=== PATIENT | male | born 1965 | race Caucasian/White ===

== ENCOUNTER 2019-09-17 08:34 | Outpatient (RCR) | payer MEDICARE, MEDICAID, SELFPAY | END 2019-09-29 00:01 | LOC: WOUND 08:34 | PROVIDERS: Visit Provider Nurse Practitioner Family | DX: E11.621 Type 2 diabetes mellitus with foot ulcer (principal); L97.422 Non-pressure chronic ulcer of left heel and midfoot with fat layer exposed; L97.413 Non-pressure chronic ulcer of right heel and midfoot with necrosis of muscle; I96 Gangrene, not elsewhere classified | CPT/HCPCS: 11042 ×3 ==

== ENCOUNTER 2019-10-29 08:24 | Outpatient (RCR) | payer OTHER, MEDICAID, SELFPAY | END 2019-10-30 23:59 | disposition home or self-care (01) | LOC: WOUND 08:24 | PROVIDERS: Visit Provider Nurse Practitioner Family | DX: E11.621 Type 2 diabetes mellitus with foot ulcer (principal); L97.422 Non-pressure chronic ulcer of left heel and midfoot with fat layer exposed; I96 Gangrene, not elsewhere classified | CPT/HCPCS: 11042; G0463 ==

== ENCOUNTER 2019-11-26 08:01 | Outpatient (RCR) | payer MEDICARE, MEDICAID, SELFPAY | END 2019-11-28 23:59 | disposition home or self-care (01) | LOC: WOUND 08:01 | PROVIDERS: Visit Provider Nurse Practitioner Family | DX: E11.621 Type 2 diabetes mellitus with foot ulcer (principal); L97.422 Non-pressure chronic ulcer of left heel and midfoot with fat layer exposed; L97.512 Non-pressure chronic ulcer of other part of right foot with fat layer exposed | CPT/HCPCS: 11042; 87070; 87077; 87176; 87186; 87205; 99214; 99215; A6545; G0463 ==

== ENCOUNTER 2019-12-24 08:11 | Outpatient (RCR) | payer MEDICARE, MEDICAID, SELFPAY | END 2019-12-29 23:59 | disposition home or self-care (01) | LOC: WOUND 08:11 | PROVIDERS: Visit Provider Nurse Practitioner Family | DX: E11.621 Type 2 diabetes mellitus with foot ulcer (principal); L97.422 Non-pressure chronic ulcer of left heel and midfoot with fat layer exposed; L97.512 Non-pressure chronic ulcer of other part of right foot with fat layer exposed | CPT/HCPCS: 11042; 99214 ==

== ENCOUNTER 2019-12-31 08:08 | Outpatient (RCR) | payer OTHER, MEDICAID, SELFPAY | END 2020-01-28 23:59 | disposition home or self-care (01) | LOC: WOUND 08:08 | PROVIDERS: PCP Nurse Practitioner Family; Visit Provider Nurse Practitioner Family | DX: E11.621 Type 2 diabetes mellitus with foot ulcer (principal); L97.422 Non-pressure chronic ulcer of left heel and midfoot with fat layer exposed | CPT/HCPCS: 99214; G0463 ==

== ENCOUNTER 2020-01-28 12:34 | Outpatient (RCR) | payer OTHER, MEDICAID, SELFPAY ==
--- NOTE | 2020-01-28 12:55 | XR_ITS ---
WS: [id number] FOOT LEFT TECHNIQUE: 3 views of the left foot CLINICAL INFORMATION: PAIN REDNESS, NONHEALING ULCER COMPARISON: Radiograph April 12, 2018 FINDINGS: Osteopenia. Soft tissue edema lower leg and ankle. Chronic appearing sclerosis involving the calcaneu s likely due to chronic osteomyelitis. No acute appearing lytic destruction. Plantar calcaneal spurri ng. Vascular calcification. No acute appearing fractures.. XR/XR foot LT min 3V* [id number] IMPRESSION: 1. Diffuse sclerosis consistent with chronic osteomyelitis involving the calca neus. No acute appearing bony destruction. 2. Extensive soft tissue edema involving the lower leg and ankle. 3. Diffuse demineralization. 4. No acute fractures.
== END 2020-01-28 23:59 | disposition home or self-care (01) ==
LOC: WOUND 12:34
PROVIDERS: PCP Nurse Practitioner Family; Visit Provider Emergency Medicine
DX: E11.621 Type 2 diabetes mellitus with foot ulcer (principal); L97.422 Non-pressure chronic ulcer of left heel and midfoot with fat layer exposed; M79.672 Pain in left foot
CPT/HCPCS: 11042; 73630; 87070; 87077; 87176; 87186; 87205

== ENCOUNTER 2020-02-01 10:13 | Outpatient (CLI) | payer OTHER, MEDICAID, SELFPAY | END 2020-02-01 10:14 | disposition home or self-care (01) | LOC: WOUND 13:36 | PROVIDERS: PCP Nurse Practitioner Family; Visit Provider Emergency Medicine | DX: E11.621 Type 2 diabetes mellitus with foot ulcer (principal); L97.422 Non-pressure chronic ulcer of left heel and midfoot with fat layer exposed | CPT/HCPCS: 11042 ==

== ENCOUNTER 2020-02-08 10:29 | Outpatient (CLI) | payer OTHER, MEDICAID, SELFPAY | END 2020-02-08 10:30 | disposition home or self-care (01) | LOC: WOUND 10:29 | PROVIDERS: PCP Nurse Practitioner Family; Visit Provider Nurse Practitioner Family | DX: E11.621 Type 2 diabetes mellitus with foot ulcer (principal); L97.422 Non-pressure chronic ulcer of left heel and midfoot with fat layer exposed | CPT/HCPCS: G0463 ==

== ENCOUNTER 2020-02-08 14:06 | Outpatient (RCR) | payer OTHER, MEDICAID, SELFPAY ==
--- NOTE | 2020-02-08 14:12 | MR_ITS ---
WS: [id number] INDICATION: Pain redness nonhealing ulcer TECHNIQUE: MRI of the left foot without and with gadolinium enhancement. Sagittal PD, axial T1, axial T2, axial STIR, sagittal STIR, and post gadolinium imaging was obtained with fat saturation techniqu e. FINDINGS: Correlation is made to prior radiograph January 28, 2020. Prior MRI October 10, 2018. Additio nal MRI January 02, 2018. Area of ulceration indicated with a marker overlying the dorsal inferior calcaneus. Soft tissue edema deep to the area of ulceration with associated cellulitis and subcutaneous enhancement. No drainable fluid collections. Replacement of the normal T1 marrow signal involving the adjacent dorsal inferior one third of the calcaneus. Replacement of the normal T1 fatty marrow signal with edema and enhancem ent consistent with osteomyelitis. This has a similar appearance compared to August 19, 2019 but ov erall less extensive today. Sparing of the sustentaculum oswaldo. Normal subtalar joint. Talus is normal in appearance. Soft tissue edema involving the lower leg and mid and forefoot. No other significant changes from previous. Again seen is the chronic appearing atrophy and tear invo lving the distal Achilles at the insertion adjacent to the area of soft tissue ulceration. No other s ignificant changes. IMPRESSION 1. Replacement of the normal bone marrow signal involving the calcaneus with associated edema and en hancement consistent with osteomyelitis involving the dorsal one third the calcaneus. 2. Dorsal calcaneal soft tissue ulceration with a small amount of edema associated enhancement consi stent with cellulitis. 3. Talar dome is normal. 4. Diffuse soft tissue edema lower leg and foot. 5. No other significant changes from previous.
[2020-02-08 15:09] LABS: Blood Urea Nitrogen 17 mg/dL (6-20); Glomerular Filtration Rate 49.1 mL/min (90-130)
== END 2020-02-28 23:59 | disposition home or self-care (01) ==
LOC: RADWPI 14:06
PROVIDERS: PCP Nurse Practitioner Family; Visit Provider Nurse Practitioner Family
DX: L97.328 Non-pressure chronic ulcer of left ankle with other specified severity (principal); M79.672 Pain in left foot; R60.9 Edema, unspecified
CPT/HCPCS: 73720; 82565; 84520; A9579

== ENCOUNTER 2020-02-15 09:17 | Outpatient (CLI) | payer OTHER, MEDICAID, SELFPAY | END 2020-02-15 09:18 | disposition home or self-care (01) | LOC: WOUND 09:19 | PROVIDERS: PCP Nurse Practitioner Family; Visit Provider Nurse Practitioner Family | DX: E11.621 Type 2 diabetes mellitus with foot ulcer (principal); L97.422 Non-pressure chronic ulcer of left heel and midfoot with fat layer exposed | CPT/HCPCS: 99214 ==

== ENCOUNTER 2020-02-16 08:40 | Outpatient (CLI) | payer OTHER, MEDICAID, SELFPAY ==
--- NOTE | 2020-02-16 09:06 | XR_ITS ---
WS: [id number] CHEST XRAY TECHNIQUE: Portable chest. CLINICAL INFORMATION: picc placement COMPARISON: May 26, 2019 FINDINGS: Right PICC line with tip in the distal SVC. No pneumothorax. Shallow inspiration. Subsegmen gilles atelectasis left lower lobe XR/XR chest 1V portable [id number] IMPRESSION: Right PICC line with tip in distal SVC. No pneumothorax.
--- NOTE | 2020-02-16 10:51 | PC.NURSE ---
PER [facility] PATIENT IS TO START CONTINUOUS INFUSION AT HOME WITH NO LOADING DOSE TO BE DONE AT THE HOSPITAL.
== END 2020-02-16 08:41 | disposition home or self-care (01) ==
LOC: GILAB 08:42
PROVIDERS: PCP Nurse Practitioner Family; Visit Provider Nurse Practitioner Family
DX: M86.8X7 Other osteomyelitis, ankle and foot (principal)
CPT/HCPCS: 36569; 71045

== ENCOUNTER 2020-02-16 22:29 | Outpatient (CLI) | payer MEDICARE, MEDICAID, SELFPAY ==
[2020-02-16 22:40] LABS: Basophils # 0.1 10^3/uL (0.0-0.1); Basophils % 0.7 %; Eosinophils # 0.4 10^3/uL (0.0-0.8); Eosinophils % 3.6 %; Hematocrit 42.5 % (42.0-52.0); Hemoglobin 13.6 g/dL (11.7-16.6); Lymphocytes # 2.1 10^3/uL (0.8-4.8); Lymphocytes % 18.8 %; Mean Corpuscular Hemoglobin 27.9 pg (28.0-34.0); Mean Corpuscular Volume 87.1 fL (80-94); Mean Platelet Volume 13.5 fL (7.4-10.4); Monocytes # 0.9 10^3/uL (0.2-0.9); Monocytes % 7.8 %; Neutrophils # 7.5 10^3/uL (1.8-7.7); Neutrophils % 68.7 %; Nucleated Red Blood Cells % 0 %; Platelet Count 253 10^3/cmm (130-400); Red Blood Count 4.88 10^6/uL (4.1-5.3); White Blood Count 10.9 10^3/uL (4.0-10.0)
[2020-02-16 22:57] LABS: Alanine Aminotransferase 11 U/L (0-41); Albumin Level 3.6 g/dL (3.5-5.2); Alkaline Phosphatase 185 IU/L (40-130); Aspartate Amino Transferase 24 U/L (0-40); Blood Urea Nitrogen 23 mg/dL (6-20); C Reactive Protein 5.7 mg/L (0.0-4.9); Calcium 9.1 mg/dL (8.5-10.5); Carbon Dioxide 23 mmol/L (22-29); Chloride 99 mmol/L (98-107); Globulin 4.2 g/dL (1.3-4.6); Glomerular Filtration Rate 53.2 mL/min (90-130); Glucose 244 mg/dL (65-115); Osmolality Calculated 287 mOsm/kg (285-295); Sodium 136 mmol/L (136-145); Total Bilirubin 0.2 mg/dL (0.15-1.2); Total Protein 7.8 g/dL (6.6-8.7)
[2020-02-16 23:23] LABS: Slide Review Slide Review Perform
== END 2020-02-16 22:30 | disposition home or self-care (01) ==
PROVIDERS: PCP Nurse Practitioner Family; Visit Provider Surgery
DX: M86.9 Osteomyelitis, unspecified (principal)
CPT/HCPCS: 80053; 85025; 86140

== ENCOUNTER 2020-02-18 14:27 | Outpatient (CLI) | payer OTHER, MEDICAID, SELFPAY ==
[2020-02-18 15:25] LABS: Creatinine Urine, Random 142 mg/dL (39-259)
[2020-02-18 22:57] LABS: Microalbum Creatinine Ratio Ur 282 mg/dL (0-20); Microalbumin Random Urine > 40 ug/dL (0-20)
== END 2020-02-18 14:28 | disposition home or self-care (01) ==
LOC: LAB 14:30
PROVIDERS: PCP Nurse Practitioner Family; Visit Provider Internal Medicine Nephrology
DX: N18.3 Chronic kidney disease, stage 3 (moderate) (principal)
CPT/HCPCS: 82044

== ENCOUNTER 2020-02-23 14:44 | Outpatient (CLI) | payer MEDICARE, MEDICAID, SELFPAY ==
--- NOTE | 2020-02-23 14:57 | USCV_ITS ---
Tim Robison Age: 54 Gender: M : 1965 Exam Date: 02/23/2020 14:55 Ordering Phys: Saige Palumbo DO Technologist: Megan Combs [place] [facility] [place]: HISTORY: NON HEALING ULCER PROCEDURES: Bilateral duplex Venous Insufficiency study of the Deep and Superficial systems was carried out according to normal protocol with the patient in supine positon for deep system and dependent position for the superficial system. FINDINGS: There is no evidence of bilateral deep vein thrombosis. No evidence of superficial thrombosis in the bilateral saphenous system. Reflux is demonstrated in the deep venous system at the level of the LEFT POP V Venous reflux is demonstrated in the RIGHT greater saphenous vein with a spectral Doppler display of greater than 500 milliseconds at the PROXIMAL level. Venous reflux is demonstrated in the RIGHT small saphenous vein with a spectral Doppler display of greater than 500 mlsec at the level of the PROX AND MID calf. No venous reflux noted in the LEFT greater saphenous vein. No venous reflux noted in the LEFT small saphenous vein. CONCLUSIONS 1. No evidence of DVT in the above-mentioned identifiable veins. 2. Significant venous reflux of greater than 500 ms were noted at the proximal greater saphenous vein segment, proximal and mid small saphenous vein segments on the right side. These venous segments where 0.57, 0.42 and 0.3 cm in diameters. They were greater than 1 cm deep from the surface. 3. No significant venous reflux were noted on the left side, in the superficial veins. 4. The left popliteal vein was found to have significant reflux of greater than 1000 ms. 5. The venous dimensions, depth from the surface and reflux times are as mentioned above. Dr Laurita Love MD [facility] (Electronically Signed) Final Date: 23 Feb 2020 18:18 S
== END 2020-02-23 14:45 | disposition home or self-care (01) ==
LOC: RAD 14:49
PROVIDERS: PCP Nurse Practitioner Family; Visit Provider Emergency Medicine
DX: L97.929 Non-pressure chronic ulcer of unspecified part of left lower leg with unspecified severity (principal); L97.919 Non-pressure chronic ulcer of unspecified part of right lower leg with unspecified severity; I87.2 Venous insufficiency (chronic) (peripheral)
CPT/HCPCS: 93970

== ENCOUNTER 2020-02-23 15:20 | Outpatient (CLI) | payer MEDICARE, MEDICAID, SELFPAY ==
[2020-02-23 19:12] LABS: Alanine Aminotransferase 7 U/L (0-41); Albumin Level 3.5 g/dL (3.5-5.2); Alkaline Phosphatase 152 IU/L (40-130); Anion Gap 19.1 (5-19); Aspartate Amino Transferase 17 U/L (0-40); Blood Urea Nitrogen 22 mg/dL (6-20); C Reactive Protein 9.8 mg/L (0.0-4.9); Calcium 9.6 mg/dL (8.5-10.5); Carbon Dioxide 22 mmol/L (22-29); Chloride 98 mmol/L (98-107); Globulin 4.6 g/dL (1.3-4.6); Glomerular Filtration Rate 42.5 mL/min (90-130); Glucose 148 mg/dL (65-115); Osmolality Calculated 279 mOsm/kg (285-295); Potassium 4.1 mmol/L (3.5-5.1); Sodium 135 mmol/L (136-145); Total Bilirubin 0.3 mg/dL (0.15-1.2); Total Protein 8.1 g/dL (6.6-8.7)
[2020-02-23 19:13] LABS: Basophils # 0.1 10^3/uL (0.0-0.1); Basophils % 1.1 %; Eosinophils # 0.6 10^3/uL (0.0-0.8); Eosinophils % 5.7 %; Hematocrit 44.4 % (42.0-52.0); Hemoglobin 13.9 g/dL (11.7-16.6); Lymphocytes # 1.9 10^3/uL (0.8-4.8); Lymphocytes % 18.6 %; Mean Corpuscular HGB Conc 31.3 g/dL (30.0-36.0); Mean Corpuscular Volume 89.3 fL (80-94); Mean Platelet Volume 12.9 fL (7.4-10.4); Monocytes # 0.7 10^3/uL (0.2-0.9); Monocytes % 7.1 %; Neutrophils % 67.1 %; Nucleated Red Blood Cells % 0 %; Platelet Count 261 10^3/cmm (130-400); Red Blood Count 4.97 10^6/uL (4.1-5.3); Red Cell Distribution Width 14.1 % (12.1-15.1); White Blood Count 10.4 10^3/uL (4.0-10.0)
== END 2020-02-23 15:21 | disposition home or self-care (01) ==
LOC: LAB 16:37
PROVIDERS: PCP Nurse Practitioner Family; Visit Provider Surgery
DX: E11.621 Type 2 diabetes mellitus with foot ulcer (principal)
CPT/HCPCS: 80053; 85025; 86140

== ENCOUNTER 2020-02-24 09:33 | Outpatient (CLI) | payer MEDICARE, MEDICAID, SELFPAY ==
--- NOTE | 2020-02-24 | USCV_ITS ---
Tim Robison Age: 54 Gender: M : 1965 Exam Date: 02/24/2020 09:54 Ordering Phys: Saige Palumbo DO Technologist: Exam Location[place] [facility] [place] Indication: NON HEALING ULCER RIGHT LEFT Brachial 138.00 mmHg Brachial 152.00 mmHg Pressure (mmHg) Waveform Pressure (mmHg) Waveform 141.00 Above Knee 157.00 161.00 Below Knee 157.00 159.00 DPA 171.00 1.05 Ankle/Brachial Index 1.13 174.00 Pre-Exercise Toe Pressure 147.00 1.14 Pre-Exercise Toe/Brachial Index 0.97 FINDINGS Normal resting ABIs bilaterally Normal resting TBIs bilaterally Normal segmental pressures PVR waveforms were of suboptimal quality CONCLUSIONS No significant arterial obstruction, based on the above findings Dr Laurita Love MD [facility] (Electronically Signed) Final Date: 24 Feb 2020 19:08 S
== END 2020-02-24 09:34 | disposition home or self-care (01) ==
LOC: RAD 09:37
PROVIDERS: PCP Nurse Practitioner Family; Visit Provider Emergency Medicine
DX: M79.605 Pain in left leg (principal); M79.604 Pain in right leg; L97.929 Non-pressure chronic ulcer of unspecified part of left lower leg with unspecified severity; L97.919 Non-pressure chronic ulcer of unspecified part of right lower leg with unspecified severity
CPT/HCPCS: 93923

== ENCOUNTER 2020-02-24 13:10 | Outpatient (CLI) | payer MEDICARE, MEDICAID, SELFPAY | END 2020-02-24 13:11 | disposition home or self-care (01) | LOC: WOUND 13:12 | PROVIDERS: PCP Nurse Practitioner Family; Visit Provider Nurse Practitioner Family | DX: E11.621 Type 2 diabetes mellitus with foot ulcer (principal); L97.422 Non-pressure chronic ulcer of left heel and midfoot with fat layer exposed | CPT/HCPCS: 11042 ==

== ENCOUNTER 2020-02-29 08:45 | Outpatient (CLI) | payer MEDICARE, MEDICAID, SELFPAY | END 2020-02-29 08:46 | disposition home or self-care (01) | LOC: WOUND 08:51 | PROVIDERS: PCP Nurse Practitioner Family; Visit Provider Nurse Practitioner Family | DX: E11.621 Type 2 diabetes mellitus with foot ulcer (principal); L97.422 Non-pressure chronic ulcer of left heel and midfoot with fat layer exposed | CPT/HCPCS: 11042 ==

== ENCOUNTER 2020-03-02 12:29 | Outpatient (CLI) | payer OTHER, MEDICAID, SELFPAY ==
[2020-03-02 13:02] LABS: Basophils # 0.1 10^3/uL (0.0-0.1); Eosinophils # 0.4 10^3/uL (0.0-0.8); Eosinophils % 3.8 %; Hematocrit 42.7 % (42.0-52.0); Hemoglobin 13.5 g/dL (11.7-16.6); Lymphocytes # 1.3 10^3/uL (0.8-4.8); Lymphocytes % 12.6 %; Mean Corpuscular HGB Conc 31.6 g/dL (30.0-36.0); Mean Corpuscular Hemoglobin 27.7 pg (28.0-34.0); Mean Corpuscular Volume 87.7 fL (80-94); Monocytes # 0.8 10^3/uL (0.2-0.9); Monocytes % 7.8 %; Neutrophils # 7.5 10^3/uL (1.8-7.7); Neutrophils % 74.4 %; Nucleated Red Blood Cells % 0 %; Platelet Count 251 10^3/cmm (130-400); Red Blood Count 4.87 10^6/uL (4.1-5.3); Red Cell Distribution Width 13.7 % (12.1-15.1); White Blood Count 10.1 10^3/uL (4.0-10.0)
[2020-03-02 13:18] LABS: Alanine Aminotransferase 11 U/L (0-41); Albumin Level 3.5 g/dL (3.5-5.2); Alkaline Phosphatase 143 IU/L (40-130); Anion Gap 17.6 (5-19); Aspartate Amino Transferase 18 U/L (0-40); Blood Urea Nitrogen 26 mg/dL (6-20); Calcium 8.8 mg/dL (8.5-10.5); Carbon Dioxide 22 mmol/L (22-29); Chloride 99 mmol/L (98-107); Globulin 3.9 g/dL (1.3-4.6); Glomerular Filtration Rate 35.3 mL/min (90-130); Glucose 358 mg/dL (65-115); Osmolality Calculated 289 mOsm/kg (285-295); Potassium 4.6 mmol/L (3.5-5.1); Sodium 134 mmol/L (136-145); Total Bilirubin 0.3 mg/dL (0.15-1.2); Total Protein 7.4 g/dL (6.6-8.7)
[2020-03-02 13:47] LABS: C Reactive Protein 7.3 mg/L (0.0-4.9)
== END 2020-03-02 12:30 | disposition home or self-care (01) ==
LOC: LAB 12:33
PROVIDERS: PCP Nurse Practitioner Family; Visit Provider Surgery
DX: E11.621 Type 2 diabetes mellitus with foot ulcer (principal)
CPT/HCPCS: 80053; 85025; 86140

== ENCOUNTER 2020-03-07 08:34 | Outpatient (CLI) | payer OTHER, MEDICAID, SELFPAY | END 2020-03-07 08:35 | disposition home or self-care (01) | LOC: WOUND 08:35 | PROVIDERS: PCP Nurse Practitioner Family; Visit Provider Nurse Practitioner Family | DX: E11.621 Type 2 diabetes mellitus with foot ulcer (principal); L97.422 Non-pressure chronic ulcer of left heel and midfoot with fat layer exposed | CPT/HCPCS: 11042 ==

== ENCOUNTER 2020-03-07 14:19 | Outpatient (CLI) | payer OTHER, MEDICAID, SELFPAY ==
[2020-03-07 14:45] LABS: Anion Gap 19.4 (5-19); Blood Urea Nitrogen 27 mg/dL (6-20); Carbon Dioxide 21 mmol/L (22-29); Chloride 96 mmol/L (98-107); Glomerular Filtration Rate 45.6 mL/min (90-130); Glucose 319 mg/dL (65-115); Osmolality Calculated 283 mOsm/kg (285-295); Potassium 4.4 mmol/L (3.5-5.1); Sodium 132 mmol/L (136-145)
== END 2020-03-07 14:20 | disposition home or self-care (01) ==
LOC: LAB 14:21
PROVIDERS: PCP Nurse Practitioner Family; Visit Provider Surgery
DX: L97.529 Non-pressure chronic ulcer of other part of left foot with unspecified severity (principal)
CPT/HCPCS: 80048

== ENCOUNTER 2020-03-14 08:20 | Outpatient (CLI) | payer OTHER, MEDICAID, SELFPAY | END 2020-03-14 08:21 | disposition home or self-care (01) | LOC: WOUND 08:21 | PROVIDERS: PCP Nurse Practitioner Family; Visit Provider Nurse Practitioner Family | DX: E11.621 Type 2 diabetes mellitus with foot ulcer (principal); L97.422 Non-pressure chronic ulcer of left heel and midfoot with fat layer exposed | CPT/HCPCS: 11042 ==

== ENCOUNTER 2020-03-14 12:05 | Outpatient (CLI) | payer OTHER, MEDICAID, SELFPAY ==
[2020-03-15 09:42] LABS: Alanine Aminotransferase 11 U/L (0-41); Albumin Level 3.7 g/dL (3.5-5.2); Alkaline Phosphatase 134 IU/L (40-130); Anion Gap 19.6 (5-19); Aspartate Amino Transferase 18 U/L (0-40); Blood Urea Nitrogen 18 mg/dL (6-20); C Reactive Protein 6.2 mg/L (0.0-4.9); Calcium 9.5 mg/dL (8.5-10.5); Carbon Dioxide 23 mmol/L (22-29); Chloride 101 mmol/L (98-107); Globulin 4.5 g/dL (1.3-4.6); Glomerular Filtration Rate 42.5 mL/min (90-130); Glucose 107 mg/dL (65-115); Osmolality Calculated 285 mOsm/kg (285-295); Potassium 4.6 mmol/L (3.5-5.1); Sodium 139 mmol/L (136-145); Total Bilirubin 0.3 mg/dL (0.15-1.2); Total Protein 8.2 g/dL (6.6-8.7)
[2020-03-15 10:09] LABS: Basophils # 0.1 10^3/uL (0.0-0.1); Eosinophils # 0.4 10^3/uL (0.0-0.8); Eosinophils % 4.2 %; Hematocrit 46.6 % (42.0-52.0); Hemoglobin 14.7 g/dL (11.7-16.6); Lymphocytes # 1.6 10^3/uL (0.8-4.8); Lymphocytes % 16.8 %; Mean Corpuscular HGB Conc 31.5 g/dL (30.0-36.0); Mean Corpuscular Hemoglobin 27.7 pg (28.0-34.0); Mean Corpuscular Volume 87.9 fL (80-94); Mean Platelet Volume 13.7 fL (7.4-10.4); Monocytes # 0.7 10^3/uL (0.2-0.9); Monocytes % 6.8 %; Neutrophils # 6.7 10^3/uL (1.8-7.7); Neutrophils % 70.7 %; Nucleated Red Blood Cells % 0 %; Platelet Count 257 10^3/cmm (130-400); Red Cell Distribution Width 14.2 % (12.1-15.1); White Blood Count 9.5 10^3/uL (4.0-10.0)
== END 2020-03-14 12:06 | disposition home or self-care (01) ==
PROVIDERS: PCP Family Medicine; Visit Provider Surgery
DX: E11.9 Type 2 diabetes mellitus without complications (principal)
CPT/HCPCS: 80053; 85025; 86140

== ENCOUNTER 2020-03-20 12:05 | Outpatient (CLI) | payer MEDICARE, MEDICAID, SELFPAY ==
[2020-03-20 12:32] LABS: Basophils # 0.1 10^3/uL (0.0-0.1); Basophils % 1.1 %; Eosinophils # 0.2 10^3/uL (0.0-0.8); Eosinophils % 2.9 %; Hematocrit 44.9 % (42.0-52.0); Hemoglobin 14.4 g/dL (11.7-16.6); Lymphocytes # 0.8 10^3/uL (0.8-4.8); Lymphocytes % 9.7 %; Mean Corpuscular HGB Conc 32.1 g/dL (30.0-36.0); Mean Corpuscular Hemoglobin 27.5 pg (28.0-34.0); Mean Corpuscular Volume 85.9 fL (80-94); Mean Platelet Volume 13.2 fL (7.4-10.4); Monocytes # 0.6 10^3/uL (0.2-0.9); Monocytes % 7.5 %; Neutrophils # 6.2 10^3/uL (1.8-7.7); Neutrophils % 78.5 %; Nucleated Red Blood Cells % 0 %; Platelet Count 189 10^3/cmm (130-400); Red Blood Count 5.23 10^6/uL (4.1-5.3); Red Cell Distribution Width 13.5 % (12.1-15.1); White Blood Count 7.8 10^3/uL (4.0-10.0)
[2020-03-20 12:41] LABS: Alanine Aminotransferase 21 U/L (0-41); Albumin Level 3.4 g/dL (3.5-5.2); Alkaline Phosphatase 155 IU/L (40-130); Anion Gap 17.4 (5-19); Aspartate Amino Transferase 24 U/L (0-40); Blood Urea Nitrogen 18 mg/dL (6-20); C Reactive Protein 8.6 mg/L (0.0-4.9); Calcium 9.8 mg/dL (8.5-10.5); Carbon Dioxide 23 mmol/L (22-29); Chloride 98 mmol/L (98-107); Globulin 4.6 g/dL (1.3-4.6); Glomerular Filtration Rate 45.6 mL/min (90-130); Glucose 357 mg/dL (65-115); Osmolality Calculated 289 mOsm/kg (285-295); Potassium 4.4 mmol/L (3.5-5.1); Sodium 134 mmol/L (136-145); Total Bilirubin 0.3 mg/dL (0.15-1.2)
== END 2020-03-20 12:06 | disposition home or self-care (01) ==
PROVIDERS: PCP Family Medicine; Visit Provider Surgery
DX: E11.9 Type 2 diabetes mellitus without complications (principal)
CPT/HCPCS: 80053; 85025; 86140

== ENCOUNTER 2020-03-21 08:17 | Outpatient (CLI) | payer MEDICARE, MEDICAID, SELFPAY | END 2020-03-21 08:18 | disposition home or self-care (01) | LOC: WOUND 08:20 | PROVIDERS: PCP Family Medicine; Visit Provider Nurse Practitioner Family | DX: E11.621 Type 2 diabetes mellitus with foot ulcer (principal); L97.422 Non-pressure chronic ulcer of left heel and midfoot with fat layer exposed | CPT/HCPCS: 11042 ==

== ENCOUNTER 2020-03-25 15:34 | Outpatient (CLI) | payer MEDICARE, MEDICAID, SELFPAY ==
--- NOTE | 2020-03-25 15:45 | US_ITS ---
WS: [id number] RENAL ULTRASOUND Urinary bladder ultrasound HISTORY: RENAL DISEASE COMPARISON: 02/11/2018 TECHNIQUE: 2-D and color Doppler imaging of the kidney submitted. Right kidney: 11.2 cm x 5.8 cm x 5.4 cm. Normal echogenicity with no hydronephrosis or mass. Left kidney: 11.5 cm x 5.4 cm x 5.2 cm. Normal echogenicity with no hydronephrosis or mass. Aorta: Aorta is completely obscured by bowel gas. Urinary Bladder: Nondistended urinary bladder. No free fluid in the pelvis. US/US renal BI with bladder IMPRESSION: 1. Negative renal ultrasound. 2. Nondistended urinary bladder.
== END 2020-03-25 15:35 | disposition home or self-care (01) ==
LOC: US 15:36
PROVIDERS: PCP Nurse Practitioner Family; Visit Provider Internal Medicine Nephrology
DX: N18.3 Chronic kidney disease, stage 3 (moderate) (principal)
CPT/HCPCS: 76770; 76857

== ENCOUNTER 2020-03-28 08:15 | Outpatient (CLI) | payer MEDICARE, MEDICAID, SELFPAY | END 2020-03-28 08:16 | disposition home or self-care (01) | PROVIDERS: PCP Nurse Practitioner Family; Visit Provider Nurse Practitioner Family | DX: E11.621 Type 2 diabetes mellitus with foot ulcer (principal); L97.422 Non-pressure chronic ulcer of left heel and midfoot with fat layer exposed | CPT/HCPCS: 11042 ==

== ENCOUNTER 2020-03-28 11:54 | Outpatient (CLI) | payer MEDICARE, MEDICAID, SELFPAY ==
[2020-03-28 12:51] LABS: Basophils # 0.1 10^3/uL (0.0-0.1); Basophils % 1.1 %; Eosinophils # 0.4 10^3/uL (0.0-0.8); Eosinophils % 4.6 %; Hematocrit 43.2 % (42.0-52.0); Lymphocytes # 1.4 10^3/uL (0.8-4.8); Lymphocytes % 16.2 %; Mean Corpuscular HGB Conc 32.4 g/dL (30.0-36.0); Mean Corpuscular Hemoglobin 27.9 pg (28.0-34.0); Mean Corpuscular Volume 86.1 fL (80-94); Mean Platelet Volume 12.8 fL (7.4-10.4); Monocytes # 0.7 10^3/uL (0.2-0.9); Neutrophils # 6.1 10^3/uL (1.8-7.7); Neutrophils % 69.9 %; Nucleated Red Blood Cells % 0 %; Platelet Count 251 10^3/cmm (130-400); Red Blood Count 5.02 10^6/uL (4.1-5.3); White Blood Count 8.8 10^3/uL (4.0-10.0)
[2020-03-28 13:08] LABS: Alanine Aminotransferase 11 U/L (0-41); Albumin Level 3.6 g/dL (3.5-5.2); Alkaline Phosphatase 131 IU/L (40-130); Anion Gap 16.4 (5-19); Aspartate Amino Transferase 21 U/L (0-40); Blood Urea Nitrogen 18 mg/dL (6-20); Calcium 9.3 mg/dL (8.5-10.5); Carbon Dioxide 23 mmol/L (22-29); Chloride 102 mmol/L (98-107); Glomerular Filtration Rate 45.6 mL/min (90-130); Glucose 176 mg/dL (65-115); Osmolality Calculated 285 mOsm/kg (285-295); Potassium 4.4 mmol/L (3.5-5.1); Sodium 137 mmol/L (136-145); Total Bilirubin 0.3 mg/dL (0.15-1.2); Total Protein 7.6 g/dL (6.6-8.7)
[2020-03-28 13:46] LABS: C Reactive Protein 6.9 mg/L (0.0-4.9)
== END 2020-03-28 11:55 | disposition home or self-care (01) ==
LOC: LAB 11:55
PROVIDERS: PCP Nurse Practitioner Family; Visit Provider Surgery
DX: M86.9 Osteomyelitis, unspecified (principal)
CPT/HCPCS: 80053; 85025; 86140

== ENCOUNTER 2020-04-04 08:47 | Outpatient (CLI) | payer MEDICARE, MEDICAID, SELFPAY | END 2020-04-04 08:48 | disposition home or self-care (01) | PROVIDERS: PCP Nurse Practitioner Family; Visit Provider Surgery | DX: Z51.89 Encounter for other specified aftercare (principal) | CPT/HCPCS: 99212 ==

== ENCOUNTER 2020-04-11 08:36 | Outpatient (CLI) | payer MEDICARE, MEDICAID, SELFPAY | END 2020-04-11 08:37 | disposition home or self-care (01) | LOC: WOUND 08:40 | PROVIDERS: PCP Nurse Practitioner Family; Visit Provider Emergency Medicine | DX: E11.621 Type 2 diabetes mellitus with foot ulcer (principal); L97.422 Non-pressure chronic ulcer of left heel and midfoot with fat layer exposed | CPT/HCPCS: 11042 ==

== ENCOUNTER 2020-04-18 09:14 | Outpatient (CLI) | payer MEDICARE, MEDICAID, SELFPAY | END 2020-04-18 09:15 | disposition home or self-care (01) | LOC: WOUND 09:15 | PROVIDERS: PCP Nurse Practitioner Family; Visit Provider Nurse Practitioner Family | DX: E11.621 Type 2 diabetes mellitus with foot ulcer (principal); L97.422 Non-pressure chronic ulcer of left heel and midfoot with fat layer exposed | CPT/HCPCS: 11042 ==

== ENCOUNTER 2020-04-25 08:54 | Outpatient (CLI) | payer MEDICARE, MEDICAID, SELFPAY | END 2020-04-25 08:55 | disposition home or self-care (01) | LOC: WOUND 08:56 | PROVIDERS: PCP Nurse Practitioner Family; Visit Provider Nurse Practitioner Family | DX: E11.621 Type 2 diabetes mellitus with foot ulcer (principal); L97.422 Non-pressure chronic ulcer of left heel and midfoot with fat layer exposed | CPT/HCPCS: 11042; 87107 ==

== ENCOUNTER 2020-05-02 08:16 | Outpatient (CLI) | payer MEDICARE, MEDICAID, SELFPAY | END 2020-05-02 08:17 | disposition home or self-care (01) | LOC: WOUND 08:18 | PROVIDERS: PCP Nurse Practitioner Family; Visit Provider Nurse Practitioner Family | DX: E11.621 Type 2 diabetes mellitus with foot ulcer (principal); L97.422 Non-pressure chronic ulcer of left heel and midfoot with fat layer exposed | CPT/HCPCS: 11042 ==

== ENCOUNTER 2020-05-09 09:33 | Outpatient (CLI) | payer MEDICARE, MEDICAID, SELFPAY | END 2020-05-09 09:34 | disposition home or self-care (01) | LOC: WOUND 09:34 | PROVIDERS: PCP Nurse Practitioner Family; Visit Provider Emergency Medicine | DX: E11.621 Type 2 diabetes mellitus with foot ulcer (principal); L97.422 Non-pressure chronic ulcer of left heel and midfoot with fat layer exposed | CPT/HCPCS: 11042 ==

== ENCOUNTER 2020-05-16 09:33 | Outpatient (CLI) | payer MEDICARE, MEDICAID, SELFPAY | END 2020-05-16 09:34 | disposition home or self-care (01) | LOC: WOUND 09:34 | PROVIDERS: PCP Nurse Practitioner Family; Visit Provider Emergency Medicine | DX: E11.621 Type 2 diabetes mellitus with foot ulcer (principal); L97.422 Non-pressure chronic ulcer of left heel and midfoot with fat layer exposed | CPT/HCPCS: 11042 ==

== ENCOUNTER 2020-05-23 10:02 | Outpatient (CLI) | payer MEDICARE, MEDICAID, SELFPAY | END 2020-05-23 10:03 | disposition home or self-care (01) | LOC: WOUND 10:02 | PROVIDERS: PCP Nurse Practitioner Family; Visit Provider Emergency Medicine | DX: E11.621 Type 2 diabetes mellitus with foot ulcer (principal); L97.422 Non-pressure chronic ulcer of left heel and midfoot with fat layer exposed | CPT/HCPCS: 11042 ==

== ENCOUNTER 2020-05-30 09:32 | Outpatient (CLI) | payer MEDICARE, MEDICAID, SELFPAY | END 2020-05-30 09:33 | disposition home or self-care (01) | LOC: WOUND 09:33 | PROVIDERS: PCP Nurse Practitioner Family; Visit Provider Emergency Medicine | DX: E11.621 Type 2 diabetes mellitus with foot ulcer (principal); L97.422 Non-pressure chronic ulcer of left heel and midfoot with fat layer exposed | CPT/HCPCS: 11042 ==

== ENCOUNTER 2020-06-13 09:28 | Outpatient (CLI) | payer MEDICARE, MEDICAID, SELFPAY | END 2020-06-13 09:29 | disposition home or self-care (01) | LOC: WOUND 09:29 | PROVIDERS: PCP Nurse Practitioner Family; Visit Provider Emergency Medicine | DX: E11.621 Type 2 diabetes mellitus with foot ulcer (principal); L97.422 Non-pressure chronic ulcer of left heel and midfoot with fat layer exposed | CPT/HCPCS: 11042 ==

== ENCOUNTER 2020-06-20 08:05 | Outpatient (CLI) | payer MEDICARE, MEDICAID, SELFPAY | END 2020-06-20 08:06 | disposition home or self-care (01) | LOC: WOUND 08:08 | PROVIDERS: PCP Nurse Practitioner Family; Visit Provider Nurse Practitioner Family | DX: E11.621 Type 2 diabetes mellitus with foot ulcer (principal); L97.422 Non-pressure chronic ulcer of left heel and midfoot with fat layer exposed | CPT/HCPCS: 99212 ==

== ENCOUNTER 2020-06-27 08:43 | Outpatient (CLI) | payer MEDICARE, MEDICAID, SELFPAY | END 2020-06-27 08:44 | disposition home or self-care (01) | LOC: WOUND 08:45 | PROVIDERS: PCP Nurse Practitioner Family; Visit Provider Nurse Practitioner Family | DX: E11.621 Type 2 diabetes mellitus with foot ulcer (principal); L97.422 Non-pressure chronic ulcer of left heel and midfoot with fat layer exposed | CPT/HCPCS: 11042 ==

== ENCOUNTER 2020-07-04 08:45 | Outpatient (CLI) | payer MEDICARE, MEDICAID, SELFPAY | END 2020-07-04 08:46 | disposition home or self-care (01) | LOC: WOUND 08:46 | PROVIDERS: PCP Nurse Practitioner Family; Visit Provider Nurse Practitioner Family | DX: E11.621 Type 2 diabetes mellitus with foot ulcer (principal); L97.421 Non-pressure chronic ulcer of left heel and midfoot limited to breakdown of skin | CPT/HCPCS: 11042; A6545 ==

== ENCOUNTER 2020-07-11 08:49 | Outpatient (CLI) | payer MEDICARE, MEDICAID, SELFPAY | END 2020-07-11 08:50 | disposition home or self-care (01) | LOC: WOUND 08:50 | PROVIDERS: PCP Nurse Practitioner Family; Visit Provider Nurse Practitioner Family | DX: E11.621 Type 2 diabetes mellitus with foot ulcer (principal); L97.421 Non-pressure chronic ulcer of left heel and midfoot limited to breakdown of skin | CPT/HCPCS: 11042 ==

== ENCOUNTER 2020-07-18 09:14 | Outpatient (CLI) | payer MEDICARE, MEDICAID, SELFPAY | END 2020-07-18 09:15 | disposition home or self-care (01) | LOC: WOUND 09:16 | PROVIDERS: PCP Nurse Practitioner Family; Visit Provider Nurse Practitioner Family | DX: E11.621 Type 2 diabetes mellitus with foot ulcer (principal); L97.421 Non-pressure chronic ulcer of left heel and midfoot limited to breakdown of skin | CPT/HCPCS: 11042 ==

== ENCOUNTER 2020-07-25 08:11 | Outpatient (CLI) | payer MEDICARE, MEDICAID, SELFPAY | END 2020-07-25 08:12 | disposition home or self-care (01) | LOC: WOUND 08:12 | PROVIDERS: PCP Nurse Practitioner Family; Visit Provider Nurse Practitioner Family | DX: E11.621 Type 2 diabetes mellitus with foot ulcer (principal); L97.421 Non-pressure chronic ulcer of left heel and midfoot limited to breakdown of skin | CPT/HCPCS: 11042 ==

== ENCOUNTER 2020-08-01 08:38 | Outpatient (CLI) | payer MEDICARE, MEDICAID, SELFPAY | END 2020-08-01 08:39 | disposition home or self-care (01) | LOC: WOUND 08:41 | PROVIDERS: PCP Nurse Practitioner Family; Visit Provider Nurse Practitioner Family | DX: E11.621 Type 2 diabetes mellitus with foot ulcer (principal); L97.422 Non-pressure chronic ulcer of left heel and midfoot with fat layer exposed | CPT/HCPCS: 11042 ==

== ENCOUNTER 2020-08-08 08:51 | Outpatient (CLI) | payer MEDICARE, MEDICAID, SELFPAY | END 2020-08-08 08:52 | disposition home or self-care (01) | LOC: WOUND 08:53 | PROVIDERS: PCP Nurse Practitioner Family; Visit Provider Nurse Practitioner Family | DX: E11.621 Type 2 diabetes mellitus with foot ulcer (principal); L97.422 Non-pressure chronic ulcer of left heel and midfoot with fat layer exposed | CPT/HCPCS: 11042 ==

== ENCOUNTER 2020-08-15 08:53 | Outpatient (CLI) | payer MEDICARE, MEDICAID, SELFPAY | END 2020-08-15 08:54 | disposition home or self-care (01) | LOC: WOUND 08:54 | PROVIDERS: PCP Nurse Practitioner Family; Visit Provider Nurse Practitioner Family | DX: E11.621 Type 2 diabetes mellitus with foot ulcer (principal); L97.422 Non-pressure chronic ulcer of left heel and midfoot with fat layer exposed | CPT/HCPCS: 11042 ==

== ENCOUNTER 2020-08-19 11:40 | Outpatient (CLI) | payer MEDICARE, MEDICAID, SELFPAY ==
[2020-08-19 12:54] LABS: Calcium 8.4 mg/dL (8.5-10.5)
[2020-08-19 13:27] LABS: Parathyroid Hormone 174.6 pg/mL (15-65)
== END 2020-08-19 11:41 | disposition home or self-care (01) ==
LOC: LAB 11:48
PROVIDERS: PCP Nurse Practitioner Family; Visit Provider Internal Medicine Nephrology
DX: E11.621 Type 2 diabetes mellitus with foot ulcer (principal)
CPT/HCPCS: 82310; 83970

== ENCOUNTER 2020-08-22 09:11 | Outpatient (CLI) | payer MEDICARE, MEDICAID, SELFPAY | END 2020-08-22 09:12 | disposition home or self-care (01) | LOC: WOUND 09:12 | PROVIDERS: PCP Nurse Practitioner Family; Visit Provider Nurse Practitioner Family | DX: E11.621 Type 2 diabetes mellitus with foot ulcer (principal); L97.422 Non-pressure chronic ulcer of left heel and midfoot with fat layer exposed | CPT/HCPCS: 11042 ==

== ENCOUNTER 2020-08-24 10:41 | Outpatient (CLI) | payer MEDICARE, MEDICAID, SELFPAY ==
[2020-08-24 10:59] LABS: Basophils # 0.1 10^3/uL (0.0-0.1); Basophils % 1.2 %; Eosinophils # 0.4 10^3/uL (0.0-0.8); Eosinophils % 4.1 %; Hemoglobin 14.6 g/dL (11.7-16.6); Lymphocytes # 1.9 10^3/uL (0.8-4.8); Lymphocytes % 19.9 %; Mean Corpuscular HGB Conc 31.7 g/dL (30.0-36.0); Mean Corpuscular Hemoglobin 27.2 pg (28.0-34.0); Mean Corpuscular Volume 85.7 fL (80-94); Mean Platelet Volume 13.2 fL (7.4-10.4); Monocytes # 0.8 10^3/uL (0.2-0.9); Monocytes % 8.3 %; Neutrophils # 6.37 10^3/uL (1.8-7.7); Neutrophils % 66.2 %; Nucleated Red Blood Cells % 0 %; Platelet Count 285 10^3/cmm (130-400); Red Blood Count 5.37 10^6/uL (4.1-5.3); White Blood Count 9.6 10^3/uL (4.0-10.0)
[2020-08-24 11:18] LABS: Albumin Level 3.5 g/dL (3.5-5.2); Anion Gap 14.6 (5-19); Blood Urea Nitrogen 24 mg/dL (6-20); Calcium 9.1 mg/dL (8.5-10.5); Carbon Dioxide 23 mmol/L (22-29); Chloride 103 mmol/L (98-107); Glomerular Filtration Rate 53.2 mL/min (90-130); Glucose 99 mg/dL (65-115); Phosphorus 2.9 mg/dL (2.5-4.5); Potassium 4.6 mmol/L (3.5-5.1); Sodium 136 mmol/L (136-145)
[2020-08-24 11:19] LABS: Creatinine Urine, Random 113 mg/dL (39-259)
[2020-08-24 12:09] LABS: Microalbumin Random Urine 783 ug/dL (0-20)
[2020-08-24 12:10] LABS: Microalbum Creatinine Ratio Ur 6471 mg/dL (0-20)
[2020-08-24 12:27] LABS: Slide Review Slide Review Perform
== END 2020-08-24 10:42 | disposition home or self-care (01) ==
LOC: LAB 10:46
PROVIDERS: PCP Nurse Practitioner Family; Visit Provider Internal Medicine Nephrology
DX: E11.621 Type 2 diabetes mellitus with foot ulcer (principal)
CPT/HCPCS: 80069; 82044; 85025

== ENCOUNTER 2020-08-29 08:28 | Outpatient (CLI) | payer MEDICARE, MEDICAID, SELFPAY | END 2020-08-29 08:29 | disposition home or self-care (01) | LOC: WOUND 08:29 | PROVIDERS: PCP Nurse Practitioner Family; Visit Provider Nurse Practitioner Family | DX: E11.621 Type 2 diabetes mellitus with foot ulcer (principal); L97.421 Non-pressure chronic ulcer of left heel and midfoot limited to breakdown of skin | CPT/HCPCS: 11042; 82044 ==

== ENCOUNTER 2020-08-29 17:56 | Outpatient (CLI) | payer MEDICARE, MEDICAID, SELFPAY ==
[2020-08-29 19:00] LABS: Creatinine Urine, Random 168 mg/dL (39-259)
[2020-08-30 01:18] LABS: Microalbum Creatinine Ratio Ur 24 mg/dL (0-20); Microalbumin Random Urine 4 ug/dL (0-20)
== END 2020-08-29 17:57 | disposition home or self-care (01) ==
LOC: LAB 18:00
PROVIDERS: PCP Nurse Practitioner Family; Visit Provider Internal Medicine Nephrology
DX: E11.621 Type 2 diabetes mellitus with foot ulcer (principal)
CPT/HCPCS: 82044

== ENCOUNTER 2020-09-05 08:15 | Outpatient (CLI) | payer MEDICARE, MEDICAID, SELFPAY | END 2020-09-05 08:16 | disposition home or self-care (01) | LOC: WOUND 08:16 | PROVIDERS: PCP Nurse Practitioner Family; Visit Provider Nurse Practitioner Family | DX: E11.621 Type 2 diabetes mellitus with foot ulcer (principal); L97.422 Non-pressure chronic ulcer of left heel and midfoot with fat layer exposed | CPT/HCPCS: 11042 ==

== ENCOUNTER 2020-09-12 09:08 | Outpatient (CLI) | payer MEDICARE, MEDICAID, SELFPAY | END 2020-09-12 09:09 | disposition home or self-care (01) | LOC: WOUND 09:10 | PROVIDERS: PCP Nurse Practitioner Family; Visit Provider Nurse Practitioner Family | DX: E11.621 Type 2 diabetes mellitus with foot ulcer (principal); L97.422 Non-pressure chronic ulcer of left heel and midfoot with fat layer exposed | CPT/HCPCS: 11042 ==

== ENCOUNTER 2020-09-19 08:41 | Outpatient (CLI) | payer MEDICARE, MEDICAID, SELFPAY | END 2020-09-19 08:42 | disposition home or self-care (01) | LOC: WOUND 08:41 | PROVIDERS: PCP Nurse Practitioner Family; Visit Provider Nurse Practitioner Family | DX: E11.621 Type 2 diabetes mellitus with foot ulcer (principal); L97.422 Non-pressure chronic ulcer of left heel and midfoot with fat layer exposed | CPT/HCPCS: 11042 ==

== ENCOUNTER 2020-09-26 08:43 | Outpatient (CLI) | payer MEDICARE, MEDICAID, SELFPAY | END 2020-09-26 08:44 | disposition home or self-care (01) | LOC: WOUND 08:44 | PROVIDERS: PCP Nurse Practitioner Family; Visit Provider Nurse Practitioner Family | DX: E11.621 Type 2 diabetes mellitus with foot ulcer (principal); L97.422 Non-pressure chronic ulcer of left heel and midfoot with fat layer exposed | CPT/HCPCS: 11042; 87070; 87176; 87205; L4631 ==

== ENCOUNTER 2020-10-03 08:40 | Outpatient (RCR) | payer MEDICARE, MEDICAID, SELFPAY | END 2020-10-30 23:59 | disposition home or self-care (01) | LOC: WOUND 08:40 | PROVIDERS: PCP Nurse Practitioner Family; Visit Provider Nurse Practitioner Family | DX: E11.621 Type 2 diabetes mellitus with foot ulcer (principal); L97.422 Non-pressure chronic ulcer of left heel and midfoot with fat layer exposed | CPT/HCPCS: 11042 ==

== ENCOUNTER 2020-10-10 08:55 | Outpatient (CLI) | payer MEDICARE, MEDICAID, SELFPAY | END 2020-10-10 08:56 | disposition home or self-care (01) | LOC: WOUND 08:56 | PROVIDERS: PCP Nurse Practitioner Family; Visit Provider Nurse Practitioner Family | DX: E11.621 Type 2 diabetes mellitus with foot ulcer (principal); L97.422 Non-pressure chronic ulcer of left heel and midfoot with fat layer exposed | CPT/HCPCS: 11042 ==

== ENCOUNTER → 2020-10-11 08:38 | Outpatient (BNVA) | payer MEDICARE, MEDICAID, SELFPAY | PROVIDERS: PCP Nurse Practitioner Family; Referring Provider Nurse Practitioner Family; Visit Provider Internal Medicine | DX: E11.22 Type 2 diabetes mellitus with diabetic chronic kidney disease (principal); N18.30 Chronic kidney disease, stage 3 unspecified; E11.40 Type 2 diabetes mellitus with diabetic neuropathy, unspecified; E11.65 Type 2 diabetes mellitus with hyperglycemia; E78.5 Hyperlipidemia, unspecified; L98.499 Non-pressure chronic ulcer of skin of other sites with unspecified severity | CPT/HCPCS: 99205 ==

== ENCOUNTER 2020-10-17 08:57 | Outpatient (CLI) | payer MEDICARE, MEDICAID, SELFPAY | END 2020-10-17 08:58 | disposition home or self-care (01) | LOC: WOUND 08:58 | PROVIDERS: PCP Nurse Practitioner Family; Visit Provider Nurse Practitioner Family | DX: E11.621 Type 2 diabetes mellitus with foot ulcer (principal); L97.422 Non-pressure chronic ulcer of left heel and midfoot with fat layer exposed | CPT/HCPCS: 11042 ==

== ENCOUNTER 2020-10-24 08:44 | Outpatient (CLI) | payer MEDICARE, MEDICAID, SELFPAY | END 2020-10-24 08:45 | disposition home or self-care (01) | LOC: WOUND 08:45 | PROVIDERS: PCP Nurse Practitioner Family; Visit Provider Nurse Practitioner Family | DX: E11.621 Type 2 diabetes mellitus with foot ulcer (principal); L97.421 Non-pressure chronic ulcer of left heel and midfoot limited to breakdown of skin | CPT/HCPCS: 11042 ==

== ENCOUNTER 2020-10-31 08:41 | Outpatient (CLI) | payer MEDICARE, MEDICAID, SELFPAY | END 2020-10-31 08:42 | disposition home or self-care (01) | LOC: WOUND 08:42 | PROVIDERS: PCP Nurse Practitioner Family; Visit Provider Nurse Practitioner Family | DX: E11.621 Type 2 diabetes mellitus with foot ulcer (principal); L97.422 Non-pressure chronic ulcer of left heel and midfoot with fat layer exposed | CPT/HCPCS: 11042 ==

== ENCOUNTER 2020-11-07 08:59 | Outpatient (CLI) | payer MEDICARE, MEDICAID, SELFPAY | END 2020-11-07 09:00 | disposition home or self-care (01) | LOC: WOUND 09:00 | PROVIDERS: PCP Nurse Practitioner Family; Visit Provider Nurse Practitioner Family | DX: E11.621 Type 2 diabetes mellitus with foot ulcer (principal); L97.422 Non-pressure chronic ulcer of left heel and midfoot with fat layer exposed | CPT/HCPCS: 11042 ==

== ENCOUNTER 2020-11-22 13:06 | Outpatient (CLI) | payer MEDICARE, MEDICAID, SELFPAY | END 2020-11-22 13:07 | disposition home or self-care (01) | LOC: WOUND 13:07 | PROVIDERS: PCP Nurse Practitioner Family; Visit Provider Nurse Practitioner Family | DX: E11.621 Type 2 diabetes mellitus with foot ulcer (principal); L97.422 Non-pressure chronic ulcer of left heel and midfoot with fat layer exposed | CPT/HCPCS: 11042 ==

== ENCOUNTER 2020-12-01 08:49 | Outpatient (CLI) | payer MEDICARE, MEDICAID, SELFPAY | END 2020-12-01 08:50 | disposition home or self-care (01) | LOC: WOUND 08:50 | PROVIDERS: PCP Nurse Practitioner Family; Visit Provider Nurse Practitioner Family | DX: E11.621 Type 2 diabetes mellitus with foot ulcer (principal); L97.422 Non-pressure chronic ulcer of left heel and midfoot with fat layer exposed | CPT/HCPCS: 11042; L4631 ==

== ENCOUNTER 2020-12-08 09:45 | Outpatient (CLI) | payer MEDICARE, MEDICAID, SELFPAY | END 2020-12-08 09:46 | disposition home or self-care (01) | LOC: WOUND 09:46 | PROVIDERS: PCP Nurse Practitioner Family; Visit Provider Nurse Practitioner Family | DX: E11.621 Type 2 diabetes mellitus with foot ulcer (principal); L97.422 Non-pressure chronic ulcer of left heel and midfoot with fat layer exposed | CPT/HCPCS: 11042 ==

== ENCOUNTER 2020-12-12 09:36 | Outpatient (CLI) | payer MEDICARE, MEDICAID, SELFPAY | END 2020-12-12 09:37 | disposition home or self-care (01) | LOC: WOUND 09:37 | PROVIDERS: PCP Nurse Practitioner Family; Visit Provider Nurse Practitioner Family | DX: E11.621 Type 2 diabetes mellitus with foot ulcer (principal); L97.422 Non-pressure chronic ulcer of left heel and midfoot with fat layer exposed | CPT/HCPCS: 11042; 87070; 87176; 87205 ==

== ENCOUNTER 2020-12-19 09:24 | Outpatient (CLI) | payer MEDICARE, MEDICAID, SELFPAY | END 2020-12-19 09:25 | disposition home or self-care (01) | LOC: WOUND 09:26 | PROVIDERS: PCP Nurse Practitioner Family; Visit Provider Nurse Practitioner Family | DX: E11.621 Type 2 diabetes mellitus with foot ulcer (principal); L97.422 Non-pressure chronic ulcer of left heel and midfoot with fat layer exposed | CPT/HCPCS: 11042 ==

== ENCOUNTER 2020-12-26 10:15 | Outpatient (CLI) | payer MEDICARE, MEDICAID, SELFPAY | END 2020-12-26 10:16 | disposition home or self-care (01) | LOC: WOUND 10:16 | PROVIDERS: PCP Nurse Practitioner Family; Visit Provider Nurse Practitioner Family | DX: E11.621 Type 2 diabetes mellitus with foot ulcer (principal); L97.422 Non-pressure chronic ulcer of left heel and midfoot with fat layer exposed | CPT/HCPCS: 11042 ==

== ENCOUNTER 2021-01-02 09:04 | Outpatient (CLI) | payer MEDICARE, MEDICAID, SELFPAY | END 2021-01-02 09:05 | disposition home or self-care (01) | LOC: WOUND 09:06 | PROVIDERS: PCP Nurse Practitioner Family; Visit Provider Nurse Practitioner Family | DX: E11.621 Type 2 diabetes mellitus with foot ulcer (principal); L97.422 Non-pressure chronic ulcer of left heel and midfoot with fat layer exposed | CPT/HCPCS: 11042 ==

== ENCOUNTER 2021-01-09 09:03 | Outpatient (CLI) | payer MEDICARE, MEDICAID, SELFPAY | END 2021-01-09 09:04 | disposition home or self-care (01) | LOC: WOUND 09:04 | PROVIDERS: PCP Nurse Practitioner Family; Visit Provider Nurse Practitioner Family | DX: E11.621 Type 2 diabetes mellitus with foot ulcer (principal); L97.422 Non-pressure chronic ulcer of left heel and midfoot with fat layer exposed | CPT/HCPCS: 11043 ==

== ENCOUNTER → 2021-01-10 11:15 | Outpatient (BNVA) | payer MEDICARE, MEDICAID, SELFPAY | PROVIDERS: PCP Nurse Practitioner Family; Visit Provider Student in an Organized Health Care Education/Training Program | DX: M86.60 Other chronic osteomyelitis, unspecified site (principal); L98.494 Non-pressure chronic ulcer of skin of other sites with necrosis of bone; E11.22 Type 2 diabetes mellitus with diabetic chronic kidney disease; E11.40 Type 2 diabetes mellitus with diabetic neuropathy, unspecified; E78.5 Hyperlipidemia, unspecified | CPT/HCPCS: 80053; 85025; 85651; 87070 ==

== ENCOUNTER 2021-01-13 16:15 | Outpatient (CLI) | payer MEDICARE, MEDICAID, SELFPAY ==
[2021-01-13 19:19] LABS: Alanine Aminotransferase 13 U/L (0-41); Albumin Level 3.5 g/dL (3.5-5.2); Alkaline Phosphatase 214 IU/L (40-130); Anion Gap 17.2 (5-19); Aspartate Amino Transferase 16 U/L (0-40); Blood Urea Nitrogen 33 mg/dL (6-20); Calcium 8.6 mg/dL (8.5-10.5); Carbon Dioxide 19 mmol/L (22-29); Chloride 101 mmol/L (98-107); Globulin 4.2 g/dL (1.3-4.6); Glomerular Filtration Rate 45.4 mL/min (90-130); Glucose 320 mg/dL (65-115); Osmolality Calculated 294 mOsm/kg (285-295); Potassium 5.2 mmol/L (3.5-5.1); Sodium 132 mmol/L (136-145); Total Bilirubin 0.2 mg/dL (0.15-1.2); Total Protein 7.7 g/dL (6.6-8.7)
== END 2021-01-13 16:16 | disposition home or self-care (01) ==
PROVIDERS: PCP Nurse Practitioner Family; Visit Provider Student in an Organized Health Care Education/Training Program
DX: N18.30 Chronic kidney disease, stage 3 unspecified (principal)
CPT/HCPCS: 80053

== ENCOUNTER 2021-01-16 08:15 | Outpatient (CLI) | payer MEDICARE, MEDICAID, SELFPAY | END 2021-01-16 08:16 | disposition home or self-care (01) | LOC: WOUND 08:16 | PROVIDERS: PCP Nurse Practitioner Family; Visit Provider Nurse Practitioner Family | DX: E11.621 Type 2 diabetes mellitus with foot ulcer (principal); L97.422 Non-pressure chronic ulcer of left heel and midfoot with fat layer exposed | CPT/HCPCS: 11042 ==

== ENCOUNTER 2021-01-23 08:41 | Outpatient (CLI) | payer MEDICARE, MEDICAID, SELFPAY | END 2021-01-23 08:42 | disposition home or self-care (01) | LOC: WOUND 08:42 | PROVIDERS: PCP Nurse Practitioner Family; Visit Provider Nurse Practitioner Family | DX: E11.621 Type 2 diabetes mellitus with foot ulcer (principal); L97.422 Non-pressure chronic ulcer of left heel and midfoot with fat layer exposed | CPT/HCPCS: 11042 ==

== ENCOUNTER → 2021-01-24 08:04 | Day surgery (SDC) | payer MEDICARE, MEDICAID, SELFPAY ==
--- NOTE | 2021-01-24 08:34 | XR_ITS ---
WS: [id number] PORTABLE CHEST HISTORY: picc placement COMPARISON: 02/16/2020 RIGHT PICC line is been placed with tip in the distal SVC. No complications. Atelectasis at the lung bases and slight elevation LEFT hemidiaphragm is stable. No pleural effusion or pneumothorax. Cardiac size: Mildly enlarged cardiac silhouette. Mediastinum/Aorta: Mild atherosclerosis aorta. No osseous abnormality seen. XR/XR chest 1V portable [id number] IMPRESSION: 1. RIGHT PICC line has been placed in good position. 2. Slight elevation LEFT hemidiaphragm is stable.
[2021-01-24] MEDS: cefepime 2,000 MG in sodium chloride 0.9% (plus) 50 ML 100 MG IV (09:57)
[2021-01-24 11:31] VITALS: BP 138/84; PULSE 61; RESP 18; TEMP 36.3; O2SAT 95; BMI 45.4
== END ==
PROVIDERS: PCP Nurse Practitioner Family; Visit Provider Student in an Organized Health Care Education/Training Program
DX: M86.60 Other chronic osteomyelitis, unspecified site (principal)
CPT/HCPCS: 36569; 71045; 96365; 96367; J0692; J0878

== ENCOUNTER 2021-01-25 12:15 | Outpatient (CLI) | payer MEDICARE, MEDICAID, SELFPAY ==
[2021-01-25 12:28] LABS: Basophils # 0.1 10^3/uL (0.0-0.1); Basophils % 0.9 %; Eosinophils # 0.3 10^3/uL (0.0-0.8); Eosinophils % 3.5 %; Hemoglobin 13.4 g/dL (11.7-16.6); Lymphocytes % 12.1 %; Mean Corpuscular HGB Conc 31.9 g/dL (30.0-36.0); Mean Corpuscular Hemoglobin 27.5 pg (28.0-34.0); Mean Corpuscular Volume 86.1 fL (80-94); Mean Platelet Volume 13.2 fL (7.4-10.4); Monocytes # 0.7 10^3/uL (0.2-0.9); Monocytes % 8.3 %; Neutrophils % 74.6 %; Nucleated Red Blood Cells % 0 %; Platelet Count 221 10^3/cmm (130-400); Red Blood Count 4.88 10^6/uL (4.1-5.3); Red Cell Distribution Width 15.2 % (12.1-15.1); White Blood Count 8.6 10^3/uL (4.0-10.0)
[2021-01-25 12:55] LABS: Alanine Aminotransferase 9 U/L (0-41); Alkaline Phosphatase 191 IU/L (40-130); Aspartate Amino Transferase 15 U/L (0-40); Creatine Phosphokinase 61 U/L (39-308); Globulin 4.1 g/dL (1.3-4.6); Glomerular Filtration Rate 39.7 mL/min (90-130); Total Bilirubin 0.4 mg/dL (0.15-1.2); Total Protein 7.1 g/dL (6.6-8.7)
== END 2021-01-25 12:16 | disposition home or self-care (01) ==
LOC: LAB 12:15
PROVIDERS: PCP Nurse Practitioner Family; Visit Provider Student in an Organized Health Care Education/Training Program
DX: E11.621 Type 2 diabetes mellitus with foot ulcer (principal)
CPT/HCPCS: 80076; 82550; 82565; 85025

== ENCOUNTER 2021-01-30 08:47 | Outpatient (CLI) | payer MEDICARE, MEDICAID, SELFPAY | END 2021-01-30 08:48 | disposition home or self-care (01) | LOC: WOUND 08:51 | PROVIDERS: PCP Nurse Practitioner Family; Visit Provider Nurse Practitioner Family | DX: E11.621 Type 2 diabetes mellitus with foot ulcer (principal); L97.422 Non-pressure chronic ulcer of left heel and midfoot with fat layer exposed | CPT/HCPCS: 11042 ==

== ENCOUNTER 2021-02-01 16:23 | Outpatient (CLI) | payer MEDICARE, MEDICAID, SELFPAY ==
[2021-02-01 17:05] LABS: Basophils # 0.2 10^3/uL (0.0-0.1); Basophils % 1.4 %; Eosinophils # 0.7 10^3/uL (0.0-0.8); Eosinophils % 6.8 %; Hematocrit 44.5 % (42.0-52.0); Hemoglobin 14.3 g/dL (11.7-16.6); Lymphocytes # 1.7 10^3/uL (0.8-4.8); Lymphocytes % 16.2 %; Mean Corpuscular HGB Conc 32.1 g/dL (30.0-36.0); Mean Corpuscular Hemoglobin 27.8 pg (28.0-34.0); Mean Corpuscular Volume 86.4 fL (80-94); Mean Platelet Volume 13.5 fL (7.4-10.4); Monocytes # 0.7 10^3/uL (0.2-0.9); Monocytes % 6.5 %; Neutrophils # 7.11 10^3/uL (1.8-7.7); Neutrophils % 68.6 %; Nucleated Red Blood Cells % 0 %; Platelet Count 229 10^3/cmm (130-400); Red Blood Count 5.15 10^6/uL (4.1-5.3); Red Cell Distribution Width 15.2 % (12.1-15.1); White Blood Count 10.4 10^3/uL (4.0-10.0)
[2021-02-01 17:34] LABS: Alanine Aminotransferase 13 U/L (0-41); Albumin Level 3.4 g/dL (3.5-5.2); Alkaline Phosphatase 233 IU/L (40-130); Aspartate Amino Transferase 17 U/L (0-40); Creatine Phosphokinase 59 U/L (39-308); Globulin 4.2 g/dL (1.3-4.6); Total Bilirubin 0.2 mg/dL (0.15-1.2); Total Protein 7.6 g/dL (6.6-8.7)
== END 2021-02-01 16:24 | disposition home or self-care (01) ==
LOC: LAB 16:23
PROVIDERS: PCP Nurse Practitioner Family; Visit Provider Student in an Organized Health Care Education/Training Program
DX: E11.621 Type 2 diabetes mellitus with foot ulcer (principal)
CPT/HCPCS: 80076; 82550; 85025

== ENCOUNTER 2021-02-06 08:59 | Outpatient (CLI) | payer MEDICARE, MEDICAID, SELFPAY | END 2021-02-06 09:00 | disposition home or self-care (01) | LOC: WOUND 09:00 | PROVIDERS: PCP Nurse Practitioner Family; Visit Provider Nurse Practitioner Family | DX: E11.621 Type 2 diabetes mellitus with foot ulcer (principal); L97.423 Non-pressure chronic ulcer of left heel and midfoot with necrosis of muscle | CPT/HCPCS: 11042 ==

== ENCOUNTER 2021-02-08 17:51 | Outpatient (CLI) | payer MEDICARE, MEDICAID, SELFPAY ==
[2021-02-08 18:20] LABS: Basophils # 0.1 10^3/uL (0.0-0.1); Basophils % 1.1 %; Eosinophils # 0.4 10^3/uL (0.0-0.8); Eosinophils % 3.9 %; Hematocrit 42.7 % (42.0-52.0); Hemoglobin 13.8 g/dL (11.7-16.6); Lymphocytes # 1.7 10^3/uL (0.8-4.8); Lymphocytes % 15.2 %; Mean Corpuscular HGB Conc 32.3 g/dL (30.0-36.0); Mean Corpuscular Hemoglobin 27.6 pg (28.0-34.0); Mean Corpuscular Volume 85.4 fL (80-94); Mean Platelet Volume 13.3 fL (7.4-10.4); Monocytes # 0.8 10^3/uL (0.2-0.9); Monocytes % 6.9 %; Neutrophils # 7.95 10^3/uL (1.8-7.7); Neutrophils % 72.4 %; Nucleated Red Blood Cells % 0 %; Platelet Count 259 10^3/cmm (130-400); Red Cell Distribution Width 15.3 % (12.1-15.1)
[2021-02-08 18:47] LABS: Albumin Level 3.1 g/dL (3.5-5.2); Alkaline Phosphatase 175 IU/L (40-130); C Reactive Protein 10.8 mg/L (0.0-4.9); Globulin 4.9 g/dL (1.3-4.6); Total Bilirubin 0.3 mg/dL (0.15-1.2)
[2021-02-08 18:50] LABS: Slide Review Slide Review Perform
[2021-02-08 18:53] LABS: Erythrocyte Sedimentation Rate 73 mm/hr (0-10)
[2021-02-08 18:56] LABS: Alanine Aminotransferase 14 U/L (0-41); Aspartate Amino Transferase 24 U/L (0-40)
[2021-02-08 18:57] LABS: Creatine Phosphokinase 68 U/L (39-308)
== END 2021-02-08 17:52 | disposition home or self-care (01) ==
LOC: LAB 17:53
PROVIDERS: PCP Nurse Practitioner Family; Visit Provider Student in an Organized Health Care Education/Training Program
DX: E11.621 Type 2 diabetes mellitus with foot ulcer (principal)
CPT/HCPCS: 80076; 82550; 82565; 85025; 85651; 86140

== ENCOUNTER 2021-02-13 08:48 | Outpatient (CLI) | payer MEDICARE, MEDICAID, SELFPAY | END 2021-02-13 08:49 | disposition home or self-care (01) | LOC: WOUND 08:52 | PROVIDERS: PCP Nurse Practitioner Family; Visit Provider Nurse Practitioner Family | DX: E11.621 Type 2 diabetes mellitus with foot ulcer (principal); L97.422 Non-pressure chronic ulcer of left heel and midfoot with fat layer exposed | CPT/HCPCS: 11042 ==

== ENCOUNTER 2021-02-15 14:48 | Outpatient (CLI) | payer MEDICARE, MEDICAID, SELFPAY ==
[2021-02-15 15:21] LABS: Basophils # 0.1 10^3/uL (0.0-0.1); Basophils % 1.1 %; Eosinophils # 0.4 10^3/uL (0.0-0.8); Eosinophils % 3.7 %; Hemoglobin 14.8 g/dL (11.7-16.6); Lymphocytes # 1.8 10^3/uL (0.8-4.8); Lymphocytes % 14.7 %; Mean Corpuscular HGB Conc 32.2 g/dL (30.0-36.0); Mean Corpuscular Hemoglobin 27.6 pg (28.0-34.0); Mean Corpuscular Volume 85.7 fL (80-94); Mean Platelet Volume 13.4 fL (7.4-10.4); Monocytes # 0.8 10^3/uL (0.2-0.9); Monocytes % 6.4 %; Neutrophils # 8.81 10^3/uL (1.8-7.7); Neutrophils % 73.6 %; Nucleated Red Blood Cells % 0 %; Platelet Count 262 10^3/cmm (130-400); Red Blood Count 5.37 10^6/uL (4.1-5.3); Red Cell Distribution Width 15.2 % (12.1-15.1)
[2021-02-15 16:01] LABS: Alanine Aminotransferase 13 U/L (0-41); Albumin Level 3.4 g/dL (3.5-5.2); Alkaline Phosphatase 211 IU/L (40-130); Aspartate Amino Transferase 19 U/L (0-40); C Reactive Protein 5.5 mg/L (0.0-4.9); Creatine Phosphokinase 51 U/L (39-308); Globulin 4.8 g/dL (1.3-4.6); Total Bilirubin 0.2 mg/dL (0.15-1.2); Total Protein 8.2 g/dL (6.6-8.7)
[2021-02-15 16:03] LABS: Erythrocyte Sedimentation Rate 77 mm/hr (0-10)
== END 2021-02-15 14:49 | disposition home or self-care (01) ==
LOC: LAB 14:49
PROVIDERS: PCP Nurse Practitioner Family; Visit Provider Student in an Organized Health Care Education/Training Program
DX: E11.621 Type 2 diabetes mellitus with foot ulcer (principal)
CPT/HCPCS: 80076; 82550; 82565; 85025; 85651; 86140

== ENCOUNTER 2021-02-22 16:00 | Outpatient (CLI) | payer MEDICARE, MEDICAID, SELFPAY ==
[2021-02-22 17:15] LABS: Chol HDL Ratio 6.42 mg/dL (1.0-5.00); Cholesterol 154 mg/dL (0-200); HDL Cholesterol 24 mg/dL (60-100); LDL Cholesterol Calculated 69 mg/dL (50-129); LDL HDL Ratio 2.88 RATIO (0.00-3.22); Triglycerides 306 mg/dL (0-150)
[2021-02-22 21:13] LABS: Estmated Average Glucose 226; Hemoglobin A1C 9.5 % (4.0-6.0)
[2021-02-23 09:52] LABS: Albumin Level 3.2 g/dL (3.5-5.2); Alkaline Phosphatase 190 IU/L (40-130); Globulin 3.8 g/dL (1.3-4.6); Glomerular Filtration Rate 57.7 mL/min (90-130); Total Bilirubin 0.2 mg/dL (0.15-1.2)
[2021-02-23 10:01] LABS: Basophils # 0.1 10^3/uL (0.0-0.1); Eosinophils # 0.3 10^3/uL (0.0-0.8); Eosinophils % 3.1 %; Hemoglobin 13.2 g/dL (11.7-16.6); Lymphocytes # 1.5 10^3/uL (0.8-4.8); Lymphocytes % 15.4 %; Mean Corpuscular HGB Conc 31.4 g/dL (30.0-36.0); Mean Platelet Volume 14.5 fL (7.4-10.4); Monocytes # 0.7 10^3/uL (0.2-0.9); Monocytes % 6.9 %; Neutrophils % 73.1 %; Nucleated Red Blood Cells % 0 %; Platelet Count 215 10^3/cmm (130-400); Red Blood Count 4.72 10^6/uL (4.1-5.3); Red Cell Distribution Width 15.8 % (12.1-15.1); White Blood Count 9.9 10^3/uL (4.0-10.0)
[2021-02-23 11:04] LABS: Erythrocyte Sedimentation Rate 47 mm/hr (0-10)
[2021-02-23 11:05] LABS: Alanine Aminotransferase 14 U/L (0-41); Aspartate Amino Transferase 30 U/L (0-40); Creatine Phosphokinase 69 U/L (39-308)
== END 2021-02-22 16:01 | disposition home or self-care (01) ==
LOC: LAB 06-30 13:41
PROVIDERS: Internal Medicine; PCP Nurse Practitioner Family; Visit Provider Student in an Organized Health Care Education/Training Program
DX: E11.621 Type 2 diabetes mellitus with foot ulcer (principal)
CPT/HCPCS: 80061; 80076; 82550; 82565; 83036; 85025; 85651; 86140

== ENCOUNTER 2021-02-23 10:19 | Outpatient (CLI) | payer MEDICARE, MEDICAID, SELFPAY | END 2021-02-23 10:20 | disposition home or self-care (01) | LOC: WOUND 10:20 | PROVIDERS: PCP Nurse Practitioner Family; Visit Provider Nurse Practitioner Family | DX: E11.621 Type 2 diabetes mellitus with foot ulcer (principal); L97.422 Non-pressure chronic ulcer of left heel and midfoot with fat layer exposed | CPT/HCPCS: 11042 ==

== ENCOUNTER 2021-03-01 15:09 | Outpatient (CLI) | payer MEDICARE, MEDICAID, SELFPAY | END 2021-03-01 15:10 | disposition home or self-care (01) | LOC: WOUND 15:12 | PROVIDERS: PCP Nurse Practitioner Family; Visit Provider Thoracic Surgery (Cardiothoracic Vascular Surgery) | DX: E11.621 Type 2 diabetes mellitus with foot ulcer (principal); L97.422 Non-pressure chronic ulcer of left heel and midfoot with fat layer exposed | CPT/HCPCS: 11042; 85025; 85651 ==

== ENCOUNTER 2021-03-01 18:01 | Outpatient (CLI) | payer MEDICARE, MEDICAID, SELFPAY ==
[2021-03-01 18:33] LABS: Basophils # 0.1 10^3/uL (0.0-0.1); Basophils % 0.9 %; Eosinophils # 0.3 10^3/uL (0.0-0.8); Eosinophils % 2.8 %; Hematocrit 40.1 % (42.0-52.0); Hemoglobin 12.9 g/dL (11.7-16.6); Lymphocytes # 1.1 10^3/uL (0.8-4.8); Mean Corpuscular HGB Conc 32.2 g/dL (30.0-36.0); Mean Corpuscular Hemoglobin 27.9 pg (28.0-34.0); Mean Corpuscular Volume 86.6 fL (80-94); Mean Platelet Volume 13.9 fL (7.4-10.4); Monocytes # 0.7 10^3/uL (0.2-0.9); Monocytes % 8.1 %; Neutrophils # 6.84 10^3/uL (1.8-7.7); Neutrophils % 75.6 %; Nucleated Red Blood Cells % 0 %; Platelet Count 185 10^3/cmm (130-400); Red Blood Count 4.63 10^6/uL (4.1-5.3); Red Cell Distribution Width 14.9 % (12.1-15.1)
[2021-03-01 19:04] LABS: Erythrocyte Sedimentation Rate > 120 mm/hr (0-10)
[2021-03-01 19:20] LABS: Slide Review Slide Review Perform
== END 2021-03-01 18:02 | disposition home or self-care (01) ==
LOC: LAB 18:02
PROVIDERS: PCP Nurse Practitioner Family; Visit Provider Student in an Organized Health Care Education/Training Program
DX: E11.621 Type 2 diabetes mellitus with foot ulcer (principal)
CPT/HCPCS: 85025; 85651

== ENCOUNTER 2021-03-03 17:05 | Outpatient (CLI) | payer MEDICARE, MEDICAID, SELFPAY ==
[2021-03-03 17:32] LABS: Basophils # 0.1 10^3/uL (0.0-0.1); Basophils % 0.9 %; Eosinophils # 0.4 10^3/uL (0.0-0.8); Eosinophils % 3.4 %; Hematocrit 42.5 % (42.0-52.0); Hemoglobin 13.8 g/dL (11.7-16.6); Lymphocytes # 1.7 10^3/uL (0.8-4.8); Lymphocytes % 15.9 %; Mean Corpuscular HGB Conc 32.5 g/dL (30.0-36.0); Mean Corpuscular Hemoglobin 28.6 pg (28.0-34.0); Mean Platelet Volume 13.5 fL (7.4-10.4); Monocytes # 0.7 10^3/uL (0.2-0.9); Monocytes % 6.5 %; Neutrophils # 7.85 10^3/uL (1.8-7.7); Neutrophils % 72.8 %; Nucleated Red Blood Cells % 0 %; Platelet Count 225 10^3/cmm (130-400); Red Blood Count 4.83 10^6/uL (4.1-5.3); Red Cell Distribution Width 15.1 % (12.1-15.1); White Blood Count 10.8 10^3/uL (4.0-10.0)
[2021-03-03 18:09] LABS: Alanine Aminotransferase 13 U/L (0-41); Albumin Level 3.3 g/dL (3.5-5.2); Alkaline Phosphatase 202 IU/L (40-130); Aspartate Amino Transferase 17 U/L (0-40); C Reactive Protein 8.8 mg/L (0.0-4.9); Creatine Phosphokinase 54 U/L (39-308); Globulin 3.9 g/dL (1.3-4.6); Total Bilirubin 0.3 mg/dL (0.15-1.2); Total Protein 7.2 g/dL (6.6-8.7)
[2021-03-03 18:43] LABS: Erythrocyte Sedimentation Rate 71 mm/hr (0-10)
== END 2021-03-03 17:06 | disposition home or self-care (01) ==
LOC: LAB 17:06
PROVIDERS: PCP Nurse Practitioner Family; Visit Provider Student in an Organized Health Care Education/Training Program
DX: E11.621 Type 2 diabetes mellitus with foot ulcer (principal)
CPT/HCPCS: 80076; 82550; 85025; 85651; 86140

== ENCOUNTER 2021-03-06 08:44 | Outpatient (CLI) | payer MEDICARE, MEDICAID, SELFPAY | END 2021-03-06 08:45 | disposition home or self-care (01) | LOC: WOUND 08:45 | PROVIDERS: PCP Nurse Practitioner Family; Visit Provider Nurse Practitioner Family | DX: E11.621 Type 2 diabetes mellitus with foot ulcer (principal); L97.421 Non-pressure chronic ulcer of left heel and midfoot limited to breakdown of skin | CPT/HCPCS: 11042 ==

== ENCOUNTER 2021-03-08 15:17 | Outpatient (CLI) | payer MEDICARE, MEDICAID, SELFPAY ==
[2021-03-08 15:49] LABS: Basophils # 0.1 10^3/uL (0.0-0.1); Basophils % 0.8 %; Eosinophils # 0.3 10^3/uL (0.0-0.8); Eosinophils % 2.7 %; Hematocrit 44.7 % (42.0-52.0); Hemoglobin 14.3 g/dL (11.7-16.6); Lymphocytes % 16.2 %; Mean Corpuscular Hemoglobin 27.8 pg (28.0-34.0); Mean Corpuscular Volume 86.8 fL (80-94); Mean Platelet Volume 13.7 fL (7.4-10.4); Monocytes # 0.8 10^3/uL (0.2-0.9); Monocytes % 6.5 %; Neutrophils # 9.07 10^3/uL (1.8-7.7); Neutrophils % 73.2 %; Nucleated Red Blood Cells % 0 %; Platelet Count 235 10^3/cmm (130-400); Red Blood Count 5.15 10^6/uL (4.1-5.3); Red Cell Distribution Width 14.8 % (12.1-15.1); White Blood Count 12.4 10^3/uL (4.0-10.0)
[2021-03-08 16:42] LABS: Alanine Aminotransferase 16 U/L (0-41); Albumin Level 3.3 g/dL (3.5-5.2); Alkaline Phosphatase 234 IU/L (40-130); C Reactive Protein 10.6 mg/L (0.0-4.9); Creatine Phosphokinase 52 U/L (39-308); Globulin 4.2 g/dL (1.3-4.6); Total Bilirubin 0.2 mg/dL (0.15-1.2); Total Protein 7.5 g/dL (6.6-8.7)
[2021-03-08 16:56] LABS: Aspartate Amino Transferase 24 U/L (0-40)
[2021-03-08 16:58] LABS: Erythrocyte Sedimentation Rate 78 mm/hr (0-10)
== END 2021-03-08 15:18 | disposition home or self-care (01) ==
LOC: LAB 15:22
PROVIDERS: PCP Nurse Practitioner Family; Visit Provider Student in an Organized Health Care Education/Training Program
DX: E11.621 Type 2 diabetes mellitus with foot ulcer (principal)
CPT/HCPCS: 80076; 82550; 82565; 85025; 85651; 86140

== ENCOUNTER 2021-03-13 08:37 | Outpatient (CLI) | payer MEDICARE, MEDICAID, SELFPAY | END 2021-03-13 08:38 | disposition home or self-care (01) | LOC: WOUND 08:43 | PROVIDERS: PCP Nurse Practitioner Family; Visit Provider Nurse Practitioner Family | DX: E11.621 Type 2 diabetes mellitus with foot ulcer (principal); L97.422 Non-pressure chronic ulcer of left heel and midfoot with fat layer exposed | CPT/HCPCS: 11042; 11045 ==

== ENCOUNTER 2021-03-15 13:49 | Outpatient (CLI) | payer MEDICARE, MEDICAID, SELFPAY ==
[2021-03-15 14:06] LABS: Basophils # 0.1 10^3/uL (0.0-0.1); Basophils % 0.7 %; Eosinophils # 0.2 10^3/uL (0.0-0.8); Hematocrit 41.3 % (42.0-52.0); Hemoglobin 13.3 g/dL (11.7-16.6); Lymphocytes # 1.3 10^3/uL (0.8-4.8); Lymphocytes % 12.8 %; Mean Corpuscular HGB Conc 32.2 g/dL (30.0-36.0); Mean Corpuscular Hemoglobin 28.1 pg (28.0-34.0); Mean Corpuscular Volume 87.3 fL (80-94); Mean Platelet Volume 13.8 fL (7.4-10.4); Monocytes # 0.7 10^3/uL (0.2-0.9); Neutrophils # 7.65 10^3/uL (1.8-7.7); Neutrophils % 76.9 %; Nucleated Red Blood Cells % 0 %; Platelet Count 201 10^3/cmm (130-400); Positive M 1; Red Blood Count 4.73 10^6/uL (4.1-5.3); Red Cell Distribution Width 14.6 % (12.1-15.1)
[2021-03-15 14:08] LABS: Slide Review Slide Review Perform
[2021-03-15 14:35] LABS: Alanine Aminotransferase 15 U/L (0-41); Albumin Level 2.9 g/dL (3.5-5.2); Alkaline Phosphatase 209 IU/L (40-130); Aspartate Amino Transferase 17 U/L (0-40); C Reactive Protein 10.4 mg/L (0.0-4.9); Creatine Phosphokinase 43 U/L (39-308); Globulin 3.6 g/dL (1.3-4.6); Total Bilirubin 0.2 mg/dL (0.15-1.2); Total Protein 6.5 g/dL (6.6-8.7)
[2021-03-15 16:04] LABS: Erythrocyte Sedimentation Rate 69 mm/hr (0-10)
== END 2021-03-15 13:50 | disposition home or self-care (01) ==
PROVIDERS: PCP Nurse Practitioner Family; Visit Provider Student in an Organized Health Care Education/Training Program
DX: E11.621 Type 2 diabetes mellitus with foot ulcer (principal)
CPT/HCPCS: 80076; 82550; 82565; 85025; 85651; 86140

== ENCOUNTER 2021-03-20 08:05 | Outpatient (CLI) | payer MEDICARE, MEDICAID, SELFPAY | END 2021-03-20 08:06 | disposition home or self-care (01) | LOC: WOUND 08:06 | PROVIDERS: PCP Nurse Practitioner Family; Visit Provider Nurse Practitioner Family | DX: E11.621 Type 2 diabetes mellitus with foot ulcer (principal); L97.422 Non-pressure chronic ulcer of left heel and midfoot with fat layer exposed | CPT/HCPCS: 11042 ==

== ENCOUNTER 2021-03-21 15:13 | Outpatient (CLI) | payer MEDICARE, MEDICAID, SELFPAY ==
[2021-03-21 15:54] LABS: Basophils # 0.1 10^3/uL (0.0-0.1); Basophils % 0.9 %; Eosinophils # 0.3 10^3/uL (0.0-0.8); Eosinophils % 2.7 %; Hematocrit 41.7 % (42.0-52.0); Hemoglobin 13.5 g/dL (11.7-16.6); Lymphocytes # 1.8 10^3/uL (0.8-4.8); Lymphocytes % 16.6 %; Mean Corpuscular HGB Conc 32.4 g/dL (30.0-36.0); Mean Corpuscular Volume 86.3 fL (80-94); Mean Platelet Volume 13.5 fL (7.4-10.4); Monocytes # 0.9 10^3/uL (0.2-0.9); Monocytes % 8.1 %; Neutrophils % 71.1 %; Nucleated Red Blood Cells % 0 %; Platelet Count 221 10^3/cmm (130-400); Red Blood Count 4.83 10^6/uL (4.1-5.3); Red Cell Distribution Width 14.6 % (12.1-15.1); White Blood Count 10.7 10^3/uL (4.0-10.0)
[2021-03-21 16:27] LABS: Slide Review Slide Review Perform
[2021-03-21 16:29] LABS: Erythrocyte Sedimentation Rate 75 mm/hr (0-10)
[2021-03-21 21:35] LABS: Alanine Aminotransferase 16 U/L (0-41); Alkaline Phosphatase 204 IU/L (40-130); Aspartate Amino Transferase 23 U/L (0-40); C Reactive Protein 8.7 mg/L (0.0-4.9); Creatine Phosphokinase 45 U/L (39-308); Globulin 3.2 g/dL (1.3-4.6); Glomerular Filtration Rate 42.4 mL/min (90-130); Total Bilirubin 0.2 mg/dL (0.15-1.2); Total Protein 6.2 g/dL (6.6-8.7)
== END 2021-03-21 15:14 | disposition home or self-care (01) ==
LOC: LAB 15:15
PROVIDERS: PCP Nurse Practitioner Family; Visit Provider Student in an Organized Health Care Education/Training Program
DX: E11.621 Type 2 diabetes mellitus with foot ulcer (principal)
CPT/HCPCS: 80076; 82550; 82565; 85025; 85651; 86140

== ENCOUNTER 2021-03-27 08:45 | Outpatient (CLI) | payer MEDICARE, MEDICAID, SELFPAY | END 2021-03-27 08:46 | disposition home or self-care (01) | LOC: WOUND 08:46 | PROVIDERS: PCP Nurse Practitioner Family; Visit Provider Nurse Practitioner Family | DX: E11.621 Type 2 diabetes mellitus with foot ulcer (principal); L97.423 Non-pressure chronic ulcer of left heel and midfoot with necrosis of muscle | CPT/HCPCS: 11042 ==

== ENCOUNTER 2021-04-10 08:09 | Outpatient (CLI) | payer MEDICARE, MEDICAID, SELFPAY | END 2021-04-10 08:10 | disposition home or self-care (01) | LOC: WOUND 08:09 | PROVIDERS: PCP Nurse Practitioner Family; Visit Provider Thoracic Surgery (Cardiothoracic Vascular Surgery) | DX: E11.621 Type 2 diabetes mellitus with foot ulcer (principal); L97.422 Non-pressure chronic ulcer of left heel and midfoot with fat layer exposed | CPT/HCPCS: 11042 ==

== ENCOUNTER 2021-04-17 08:08 | Outpatient (CLI) | payer MEDICARE, MEDICAID, SELFPAY | END 2021-04-17 08:09 | disposition home or self-care (01) | LOC: WOUND 08:10 | PROVIDERS: PCP Nurse Practitioner Family; Visit Provider Nurse Practitioner Family | DX: E11.621 Type 2 diabetes mellitus with foot ulcer (principal); L97.422 Non-pressure chronic ulcer of left heel and midfoot with fat layer exposed | CPT/HCPCS: G0463 ==

== ENCOUNTER 2021-04-24 08:16 | Outpatient (CLI) | payer MEDICARE, MEDICAID, SELFPAY | END 2021-04-24 08:17 | disposition home or self-care (01) | LOC: WOUND 08:17 | PROVIDERS: PCP Nurse Practitioner Family; Visit Provider Nurse Practitioner Family | DX: E11.621 Type 2 diabetes mellitus with foot ulcer (principal); L97.425 Non-pressure chronic ulcer of left heel and midfoot with muscle involvement without evidence of necrosis | CPT/HCPCS: 11042 ==

== ENCOUNTER 2021-05-01 08:38 | Outpatient (CLI) | payer MEDICARE, MEDICAID, SELFPAY | END 2021-05-01 08:39 | disposition home or self-care (01) | LOC: WOUND 08:39 | PROVIDERS: PCP Nurse Practitioner Family; Visit Provider Nurse Practitioner Family | DX: E11.621 Type 2 diabetes mellitus with foot ulcer (principal); L97.425 Non-pressure chronic ulcer of left heel and midfoot with muscle involvement without evidence of necrosis | CPT/HCPCS: 11042 ==

== ENCOUNTER 2021-05-08 09:04 | Outpatient (CLI) | payer MEDICARE, MEDICAID, SELFPAY | END 2021-05-08 09:05 | disposition home or self-care (01) | LOC: WOUND 09:05 | PROVIDERS: PCP Nurse Practitioner Family; Visit Provider Emergency Medicine | DX: E11.621 Type 2 diabetes mellitus with foot ulcer (principal); L97.422 Non-pressure chronic ulcer of left heel and midfoot with fat layer exposed | CPT/HCPCS: 11042; 15275; C1849 ==

== ENCOUNTER 2021-05-15 08:52 | Outpatient (CLI) | payer MEDICARE, MEDICAID, SELFPAY | END 2021-05-15 08:53 | disposition home or self-care (01) | LOC: WOUND 08:53 | PROVIDERS: PCP Nurse Practitioner Family; Visit Provider Emergency Medicine | DX: E11.621 Type 2 diabetes mellitus with foot ulcer (principal); L97.424 Non-pressure chronic ulcer of left heel and midfoot with necrosis of bone | CPT/HCPCS: 11044; 87070; 87176; 87205; 99212 ==

== ENCOUNTER 2021-05-22 08:45 | Outpatient (CLI) | payer MEDICARE, MEDICAID, SELFPAY | END 2021-05-22 08:46 | disposition home or self-care (01) | LOC: WOUND 08:49 | PROVIDERS: PCP Nurse Practitioner Family; Visit Provider Emergency Medicine | DX: E11.621 Type 2 diabetes mellitus with foot ulcer (principal); L97.422 Non-pressure chronic ulcer of left heel and midfoot with fat layer exposed | CPT/HCPCS: 11042 ==

== ENCOUNTER 2021-05-29 08:37 | Outpatient (CLI) | payer MEDICARE, MEDICAID, SELFPAY | END 2021-05-29 08:38 | disposition home or self-care (01) | LOC: WOUND 08:39 | PROVIDERS: PCP Nurse Practitioner Family; Visit Provider Emergency Medicine | DX: E11.621 Type 2 diabetes mellitus with foot ulcer (principal); L97.422 Non-pressure chronic ulcer of left heel and midfoot with fat layer exposed | CPT/HCPCS: 11042 ==

== ENCOUNTER 2021-06-06 08:45 | Outpatient (CLI) | payer MEDICARE, MEDICAID, SELFPAY | END 2021-06-06 08:46 | disposition home or self-care (01) | LOC: WOUND 08:46 | PROVIDERS: PCP Nurse Practitioner Family; Visit Provider Emergency Medicine | DX: E11.621 Type 2 diabetes mellitus with foot ulcer (principal); L97.422 Non-pressure chronic ulcer of left heel and midfoot with fat layer exposed | CPT/HCPCS: 11042 ==

== ENCOUNTER 2021-06-12 09:19 | Outpatient (CLI) | payer MEDICARE, MEDICAID, SELFPAY | END 2021-06-12 09:20 | disposition home or self-care (01) | LOC: WOUND 09:20 | PROVIDERS: PCP Nurse Practitioner Family; Visit Provider Emergency Medicine | DX: E11.621 Type 2 diabetes mellitus with foot ulcer (principal); L97.422 Non-pressure chronic ulcer of left heel and midfoot with fat layer exposed | CPT/HCPCS: 11042 ==

== ENCOUNTER 2021-06-19 09:15 | Outpatient (CLI) | payer MEDICARE, MEDICAID, SELFPAY | END 2021-06-19 09:16 | disposition home or self-care (01) | LOC: WOUND 09:19 | PROVIDERS: PCP Nurse Practitioner Family; Visit Provider Emergency Medicine | DX: E11.621 Type 2 diabetes mellitus with foot ulcer (principal); L97.422 Non-pressure chronic ulcer of left heel and midfoot with fat layer exposed | CPT/HCPCS: 97597 ==

== ENCOUNTER 2021-06-26 09:10 | Outpatient (CLI) | payer MEDICARE, MEDICAID, SELFPAY | END 2021-06-26 09:11 | disposition home or self-care (01) | LOC: WOUND 09:11 | PROVIDERS: PCP Nurse Practitioner Family; Visit Provider Emergency Medicine | DX: E11.621 Type 2 diabetes mellitus with foot ulcer (principal); L97.422 Non-pressure chronic ulcer of left heel and midfoot with fat layer exposed | CPT/HCPCS: 11043 ==

== ENCOUNTER 2021-07-03 09:58 | Outpatient (CLI) | payer MEDICARE, MEDICAID, SELFPAY | END 2021-07-03 09:59 | disposition home or self-care (01) | LOC: WOUND 10:00 | PROVIDERS: PCP Nurse Practitioner Family; Visit Provider Emergency Medicine | DX: E11.621 Type 2 diabetes mellitus with foot ulcer (principal); L97.422 Non-pressure chronic ulcer of left heel and midfoot with fat layer exposed; L89.623 Pressure ulcer of left heel, stage 3; M86.8X7 Other osteomyelitis, ankle and foot | CPT/HCPCS: 11042; 11045; 73720; 99212; A9579 ==

== ENCOUNTER 2021-07-03 13:55 | Outpatient (CLI) | payer MEDICARE, MEDICAID, SELFPAY ==
--- NOTE | 2021-07-03 14:01 | MR_ITS ---
WS: [id number] MRI LEFT FOOT WITH AND WITHOUT CONTRAST. COMPARISON: 02/08/2020 and radiograph 01/28/2020 Multiplanar, multisequence imaging is performed with and without contrast. Sagittal and axial T1 fat sat sequences post-MultiHance 17 cc IV. Loss of the normal marrow signal in the calcaneus. On the T1 sequences there is significant decreased signal within the marrow throughout nearly the entire calcaneus. This area of abnormal signal enhanc es on the postcontrast imaging. Progression of the extent of the enhancement since the prior examinat ion. Very small caliber distal Achilles tendon. There is a small amount of fluid surrounding the dist al Achilles tendon and also along the plantar surface of the posterior calcaneal process. There is a small amount of enhancing extending into the sinus Tarsi. No fracture or fragmentation. The talus is intact. No osteochondral lesions or significant narrowing at the tibiotalar joint space. There is a large amount of soft tissue edema surrounding the ankle. The edema is predominantly at th e calcaneus and the Achilles tendon along the plantar surface. Soft tissue ulceration along the plant ar surface of the foot extends over a width of 1.6 cm in the length of 4.0 cm. There is enhancement a t the ulceration bed and significant thinning of the overlying soft tissues. The ulceration has progr essed since the prior study. MR/MR foot LT wo/w con [id number] IMPRESSION: 1. Progression of osteomyelitis involving the calcaneus. Nearly the entire jarocho caneus is involved with extension of enhancement into the sinus Tarsi. 2. Superficial soft tissue ulceration measures 1.6 x 4.0 cm along the plantar surface of the calcaneus.
== END 2021-07-03 13:56 | disposition home or self-care (01) ==
LOC: RADSHAW 13:59
PROVIDERS: PCP Nurse Practitioner Family; Visit Provider Emergency Medicine
DX: E11.621 Type 2 diabetes mellitus with foot ulcer (principal); L89.623 Pressure ulcer of left heel, stage 3; M86.8X7 Other osteomyelitis, ankle and foot
CPT/HCPCS: 73720; A9579

== ENCOUNTER 2021-07-10 09:19 | Outpatient (CLI) | payer MEDICARE, MEDICAID, SELFPAY | END 2021-07-10 09:20 | disposition home or self-care (01) | LOC: WOUND 09:20 | PROVIDERS: PCP Nurse Practitioner Family; Visit Provider Emergency Medicine | DX: E11.621 Type 2 diabetes mellitus with foot ulcer (principal); L97.422 Non-pressure chronic ulcer of left heel and midfoot with fat layer exposed | CPT/HCPCS: 11042 ==

== ENCOUNTER 2021-07-20 10:45 | Outpatient (CLI) | payer MEDICARE, MEDICAID, SELFPAY | END 2021-07-20 10:46 | disposition home or self-care (01) | LOC: WOUND 10:46 | PROVIDERS: PCP Nurse Practitioner Family; Visit Provider Emergency Medicine | DX: E11.621 Type 2 diabetes mellitus with foot ulcer (principal); L97.422 Non-pressure chronic ulcer of left heel and midfoot with fat layer exposed | CPT/HCPCS: 11042 ==

== ENCOUNTER 2021-07-27 10:01 | Outpatient (CLI) | payer MEDICARE, MEDICAID, SELFPAY | END 2021-07-27 10:02 | disposition home or self-care (01) | LOC: WOUND 10:02 | PROVIDERS: PCP Nurse Practitioner Family; Visit Provider Nurse Practitioner Family | DX: E11.621 Type 2 diabetes mellitus with foot ulcer (principal); L97.422 Non-pressure chronic ulcer of left heel and midfoot with fat layer exposed; E11.22 Type 2 diabetes mellitus with diabetic chronic kidney disease; I12.0 Hypertensive chronic kidney disease with stage 5 chronic kidney disease or end stage renal disease; N18.6 End stage renal disease | CPT/HCPCS: 11042; A6252 ==

== ENCOUNTER → 2021-08-01 09:20 | Outpatient (BNVA) | payer MEDICARE, MEDICAID, SELFPAY | PROVIDERS: PCP Nurse Practitioner Family; Visit Provider Internal Medicine | DX: E11.40 Type 2 diabetes mellitus with diabetic neuropathy, unspecified (principal); E11.65 Type 2 diabetes mellitus with hyperglycemia; E11.22 Type 2 diabetes mellitus with diabetic chronic kidney disease; E11.621 Type 2 diabetes mellitus with foot ulcer; N18.30 Chronic kidney disease, stage 3 unspecified; L98.494 Non-pressure chronic ulcer of skin of other sites with necrosis of bone; E78.5 Hyperlipidemia, unspecified; Z79.4 Long term (current) use of insulin | CPT/HCPCS: 99214 ==

== ENCOUNTER 2021-08-03 09:04 | Outpatient (CLI) | payer MEDICARE, MEDICAID, SELFPAY | END 2021-08-03 09:05 | disposition home or self-care (01) | LOC: WOUND 09:05 | PROVIDERS: PCP Nurse Practitioner Family; Visit Provider Nurse Practitioner Family | DX: E11.621 Type 2 diabetes mellitus with foot ulcer (principal); L97.422 Non-pressure chronic ulcer of left heel and midfoot with fat layer exposed | CPT/HCPCS: 11042; A6252 ==

== ENCOUNTER 2021-08-10 08:49 | Outpatient (CLI) | payer MEDICARE, MEDICAID, SELFPAY | END 2021-08-10 08:50 | disposition home or self-care (01) | LOC: WOUND 08:50 | PROVIDERS: PCP Nurse Practitioner Family; Visit Provider Emergency Medicine | DX: E11.621 Type 2 diabetes mellitus with foot ulcer (principal); L97.422 Non-pressure chronic ulcer of left heel and midfoot with fat layer exposed | CPT/HCPCS: 11042; A6252 ==

== ENCOUNTER 2021-08-16 14:38 | Outpatient (CLI) | payer MEDICARE, MEDICAID, SELFPAY ==
[2021-08-16 15:10] LABS: Anion Gap 15.5 (5-19); Blood Urea Nitrogen 22 mg/dL (6-20); Calcium 8.2 mg/dL (8.5-10.5); Carbon Dioxide 22 mmol/L (22-29); Chloride 102 mmol/L (98-107); Glomerular Filtration Rate 39.7 mL/min (90-130); Glucose 150 mg/dL (65-115); Osmolality Calculated 286 mOsm/kg (285-295); Potassium 4.5 mmol/L (3.5-5.1); Sodium 135 mmol/L (136-145)
== END 2021-08-16 14:39 | disposition home or self-care (01) ==
LOC: LAB 14:39
PROVIDERS: PCP Nurse Practitioner Family; Visit Provider Registered Nurse
DX: E11.621 Type 2 diabetes mellitus with foot ulcer (principal)
CPT/HCPCS: 80048

== ENCOUNTER 2021-08-17 08:46 | Outpatient (CLI) | payer MEDICARE, MEDICAID, SELFPAY | END 2021-08-17 08:47 | disposition home or self-care (01) | LOC: WOUND 08:47 | PROVIDERS: PCP Nurse Practitioner Family; Visit Provider Nurse Practitioner Family | DX: E11.621 Type 2 diabetes mellitus with foot ulcer (principal); L97.422 Non-pressure chronic ulcer of left heel and midfoot with fat layer exposed | CPT/HCPCS: 11042 ==

== ENCOUNTER 2021-08-31 09:12 | Outpatient (CLI) | payer MEDICARE, MEDICAID, SELFPAY | END 2021-08-31 09:13 | disposition home or self-care (01) | LOC: WOUND 09:13 | PROVIDERS: PCP Nurse Practitioner Family; Visit Provider Emergency Medicine | DX: E11.621 Type 2 diabetes mellitus with foot ulcer (principal); L97.422 Non-pressure chronic ulcer of left heel and midfoot with fat layer exposed | CPT/HCPCS: 11042; A6252 ==

== ENCOUNTER 2021-09-07 08:44 | Outpatient (CLI) | payer MEDICARE, MEDICAID, SELFPAY | END 2021-09-07 08:45 | disposition home or self-care (01) | LOC: WOUND 08:45 | PROVIDERS: PCP Nurse Practitioner Family; Visit Provider Emergency Medicine | DX: E11.621 Type 2 diabetes mellitus with foot ulcer (principal); L97.422 Non-pressure chronic ulcer of left heel and midfoot with fat layer exposed | CPT/HCPCS: 11042; 87070; 87077; 87176; 87186; 87205; 99212 ==

== ENCOUNTER 2021-09-14 08:40 | Outpatient (CLI) | payer MEDICARE, MEDICAID, SELFPAY | END 2021-09-14 08:41 | disposition home or self-care (01) | LOC: WOUND 08:41 | PROVIDERS: PCP Nurse Practitioner Family; Visit Provider Nurse Practitioner Family | DX: E11.621 Type 2 diabetes mellitus with foot ulcer (principal); L97.422 Non-pressure chronic ulcer of left heel and midfoot with fat layer exposed | CPT/HCPCS: 11042 ==

== ENCOUNTER 2021-09-21 08:47 | Outpatient (CLI) | payer MEDICARE, MEDICAID, SELFPAY | END 2021-09-21 08:48 | disposition home or self-care (01) | LOC: WOUND 08:48 | PROVIDERS: PCP Nurse Practitioner Family; Visit Provider Nurse Practitioner Family | DX: E11.621 Type 2 diabetes mellitus with foot ulcer (principal); L97.422 Non-pressure chronic ulcer of left heel and midfoot with fat layer exposed; I10 Essential (primary) hypertension | CPT/HCPCS: 11042 ==

== ENCOUNTER 2021-09-28 10:59 | Outpatient (CLI) | payer MEDICARE, MEDICAID, SELFPAY | END 2021-09-28 11:00 | disposition home or self-care (01) | LOC: WOUND 11:00 | PROVIDERS: PCP Nurse Practitioner Family; Visit Provider Nurse Practitioner Family | DX: E11.621 Type 2 diabetes mellitus with foot ulcer (principal); L97.422 Non-pressure chronic ulcer of left heel and midfoot with fat layer exposed | CPT/HCPCS: 11042 ==

== ENCOUNTER 2021-10-05 09:01 | Outpatient (CLI) | payer MEDICARE, MEDICAID, SELFPAY | END 2021-10-05 09:02 | disposition home or self-care (01) | LOC: WOUND 09:03 | PROVIDERS: PCP Nurse Practitioner Family; Visit Provider Emergency Medicine | DX: E11.40 Type 2 diabetes mellitus with diabetic neuropathy, unspecified (principal); E11.65 Type 2 diabetes mellitus with hyperglycemia; E11.22 Type 2 diabetes mellitus with diabetic chronic kidney disease; L98.494 Non-pressure chronic ulcer of skin of other sites with necrosis of bone; E78.5 Hyperlipidemia, unspecified; Z79.4 Long term (current) use of insulin | CPT/HCPCS: 11042; 99214 ==

== ENCOUNTER 2021-10-12 08:31 | Outpatient (CLI) | payer MEDICARE, MEDICAID, SELFPAY | END 2021-10-12 08:32 | disposition home or self-care (01) | LOC: WOUND 08:32 | PROVIDERS: PCP Nurse Practitioner Family; Visit Provider Emergency Medicine | DX: E11.621 Type 2 diabetes mellitus with foot ulcer (principal); L97.422 Non-pressure chronic ulcer of left heel and midfoot with fat layer exposed | CPT/HCPCS: 11042; A6251 ==

== ENCOUNTER 2021-10-29 20:31 | Inpatient (IN) | payer MEDICARE, MEDICAID, SELFPAY ==
[2021-10-29 20:33] VITALS: BP 131/65; PULSE 96; RESP 18; TEMP 37.4; O2SAT 89; BMI 44.3
--- NOTE | 2021-10-29 20:33 | XRR_ITS ---
PROCEDURE INFORMATION: Exam: XR Chest Exam date and time: 10/29/2021 8:33 PM Age: 55 years old Clinical indication: Dyspnea TECHNIQUE: Imaging protocol: XR of the chest. Views: 1 view. COMPARISON: CR XR chest 1V portable [id number] 01/24/2021 9:02 AM FINDINGS: Lungs: Multifocal bilateral airspace and ground-glass opacities are noted in the lungs concerning for pneumonic infiltrates including COVID-19 pneumonia. Pleural spaces: There is a small left pleural effusion. There is no evidence of pneumothorax. Heart/Mediastinum: The heart is enlarged. Vasculature: Central vessels are mildly engorged with cephalization of flow. Bones/joints: No acute abnormality. XR/XR chest 1V portable [id number] IMPRESSION: Multifocal bilateral airspace and ground-glass opacities are noted in the lungs concerning for pneumonic infiltrates including COVID-19 pneumonia.
--- NOTE | 2021-10-29 20:49 | ECG_ITS ---
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 Analytic Consultant: : 1965 Requested By: Tucker Waldron Order Number: [id number] Reading MD: PRADEEP ROJO Measurements Intervals [place] Rate: 89 P: 15 NE: 138 QRS: 169 QRSD: 118 T: 19 QT: 344 QTc: 421 Interpretive Statements SINUS RHYTHM RIGHT AXIS DEVIATION [QRS AXIS > 100] RIGHT BUNDLE BRANCH BLOCK [120+ ms QRS DURATION, UPRIGHT V1, 40+ ms S IN I/aVL/V4/V5/V6] Compared to ECG 10/24/2018 11:24:05 Right-axis deviation now present Electronically Signed On 10-30-2021 19:51:30 DUKEY RIDER by PRADEEP ROJO [id number]
--- NOTE | 2021-10-29 20:55 | ED_ITS ---
HPI - General Adult General: Chief complaint: COVID symptoms Stated complaint: COVID + Time Seen by Provider: 10/29/21 20:32 History of Present Illness: CC: Shortness of breath, fever and generalized weakness HPI: This is a [55] yo patient w/ hx of DM, diabetic foot ulcers presenting to the ED with malaise, generalized weakness, cough sputum production, and fever at home x 7days. Since onset of symptoms, has had some shortness of breath and decreased PO intake. NO recent travel. Endorses no sick contacts around. Reports occasional nausea/vomiting/diarrhea. Denies chest pain, diaphoresis, other GI or complaints. Denies any pleuritic chest pain, recent surgery/immobilizatio n/travel, or hematemesis or hx of VTE in the past. Onset: 7 days ago Duration: ongoing for the last 7 days Location: home Severity: moderate Associated symptoms: Reports dyspnea, malaise, nausea and vomiting; Deny chest pain, rash or palpitations Review of Systems Const: Reports: fever(s), chills, fatigue, malaise and other (+generalized weakness) Eyes: Denies: change in vision ENMT: Denies: mouth pain Card: Denies: chest pain or palpitations Resp: Reports: dyspnea and non-productive cough GI: Reports: nausea, vomiting and diarrhea; Denies: abdominal pain : Denies: dysuria Musc: Denies: extremity pain Skin/Breast: Denies: rash or new lesions Neuro: Denies: weakness in extremities Psych: Reports: other (Normal mood) Jarrod/Lymph: Denies: easy bruising PFS ED PFSH: Medical History Diabetes Neuropathy Onychomycosis of nail of digit of hand Surgical History H/O circumcision H/O colonoscopy 7 yrs ago Status post debridement of ulcer of heel Family History Brother Cancer Sister Lung disease Mother Heart failure Father Chronic kidney failure Denies family history of Anesthesia complication Bleeding disorder Social History Second hand smoke exposure: No Alcohol intake: never Adopted: No Lives independently: Yes Marital status: Single Current occupational status: disabled History of recent travel: No Physical Exam Const: COMMON NORMALS: alert HENMT: COMMON NORMALS: atraumatic HEAD & SCALP: atraumatic MOUTH: moist mucous membranes not abnormal Eye: COMMON NORMALS: EOMs intact bilaterally and conjunctivae normal CONJUNCTIVA: Yes conjunctivae normal Neck/C-Spine: COMMON NORMALS: full ROM and supple Resp: OTHER: +coarse breath sounds b/l Cardio: RATE: tachycardic GI: COMMON NORMALS: Soft to palpation and non-tender PALPATION: Yes Soft to palpation Extremity: COMMON NORMALS: full ROM Neuro: SENSORIUM/ORIENTATION: Yes alert MOTOR EXAM: No Abnormal motor strength present and Other motor observations present (decreased sensations in the lower extremities per baseline) Psych: COMMON NORMALS: speech normal SPEECH: Yes normal speech MOOD & AFFECT: Yes euthymic mood Skin: NARRATIVE SKIN EXAM: +diabetic decubitus heel ulcers stage 2-3 b/l Course Vital Signs: Vital signs: Vital Signs Temperature 99.4 F 10/29/21 20:33 Pulse Rate 96 10/29/21 20:33 Respiratory Rate 18 10/29/21 20:33 Blood Pressure 131/65 10/29/21 20:33 Pulse Oximetry 86 L 10/29/21 22:12 MDM - General Adult Medical Decision Making [55]yo patient presenting to the ED with shortness of breath, cough, and malaise concerning for COVID pneumonia. Given History, Exam, and Workup presentation most consistent with pneumonia.Presentation not consistent with PE, COPD exacerbation, Pneumothorax, TB, Atypical ACS, Esophageal Rupture, Toxic Exposure, Foreign Body Airway Obstruction. Workup: CXR Chest, Covid labs Intervention: Tylenol 1gram, PO challenge, serial reassessment, oxygen, decadron, remdesivir, duoneb [10:10pm] On reassessment, XR findings of ground-glass opacity.Findings consistent with COVID PNA. New ARJUN on CKD. Cr of 3.1. Patient s/p 1L of NS. Requires 4L of oxygen at rest that goes up to 8L with ambulation. S/p remdesivir and decadron. Will defer CTA given elevated Cr today. Disposition: Admission Lab Data : 10/29/21 20:00 10/29/21 20:00 Radiology Impressions Chest X-Ray 10/29/21 20:33 IMPRESSION: Multifocal bilateral airspace and ground-glass opacities are noted in the lungs concerning for pneumonic infiltrates including COVID-19 pneumonia. Laboratory Results WBC 9.0 10^3/uL (4.0-10.0) 10/29/21 20:00 RBC 5.30 10^6/uL (4.1-5.3) 10/29/21 20:00 Hgb 14.4 g/dL (11.7-16.6) 10/29/21 20:00 Hct 44.6 % (42.0-52.0) 10/29/21 20:00 MCV 84.2 fl (80-94) 10/29/21 20:00 MCH 27.2 pg (28.0-34.0) L 10/29/21 20:00 MCHC 32.3 g/dL (30.0-36.0) 10/29/21 20:00 RDW 15.3 % (12.1-15.1) H 10/29/21 20:00 Plt Count 258 10^3/cmm (130-400) 10/29/21 20:00 MPV 13.0 fL (7.4-10.4) H 10/29/21 20:00 Neut % (Auto) 75.0 % 10/29/21 20:00 Lymph % (Auto) 13.4 % 10/29/21 20:00 [place] % (Auto) 10.4 % 10/29/21 20:00 Eos % (Auto) 0.1 % 10/29/21 20:00 Baso % (Auto) 0.2 % 10/29/21 20:00 Neut # (Auto) 6.73 10^3/uL (1.8-7.7) 10/29/21 20:00 Lymph # (Auto) 1.2 10^3/uL (0.8-4.8) 10/29/21 20:00 [place] # (Auto) 0.9 10^3/uL (0.2-0.9) 10/29/21 20:00 Eos # (Auto) 0.0 10^3/uL (0.0-0.8) 10/29/21 20:00 Baso # (Auto) 0.0 10^3/uL (0.0-0.1) 10/29/21 20:00 Nucleated RBC % (auto) 0 % 10/29/21 20:00 Nucleated RBCs # 0.0 /100WBC 10/29/21 20:00 PT 13.20 SECONDS (12.1-14.9) 10/29/21 20:00 INR 0.97 (0.8-1.2) 10/29/21 20:00 APTT 41.2 SECONDS (23.9-36.7) H 10/29/21 20:00 Fibrinogen 637 mg/dL (174-498) H 10/29/21 20:00 D-Dimer 3.11 ug/mIFEU (0-0.59) H 10/29/21 20:00 Specimen Type Arterial 10/29/21 21:45 Sample Site Radial, right 10/29/21 21:45 ABG pH 7.38 (7.35-7.45) 10/29/21 21:45 ABG pCO2 33.7 mmHg (35-45) L 10/29/21 21:45 ABG pO2 61.4 mmHg (80.0-100.0) L 10/29/21 21:45 ABG HCO3 19.9 mmol/L (22-26) L 10/29/21 21:45 ABG Base Excess -4.4 mmol/L (-2.0-2.0) L 10/29/21 21:45 Pedro Test Pos 10/29/21 21:45 Hematocrit 40.1 % (42-52) L 10/29/21 21:45 O2 Delivery Device Nc 10/29/21 21:45 O2 Liters/Min 4.0 % 10/29/21 21:45 Climatology Professor ID Hensa 10/29/21 21:45 Sodium 131 mmol/L (136-145) L 10/29/21 20:00 Potassium 4.5 mmol/L (3.5-5.1) 10/29/21 20:00 Chloride 98 mmol/L (98-107) 10/29/21 20:00 Carbon Dioxide 18 mmol/L (22-29) L 10/29/21 20:00 Anion Gap 19.5 (5-19) H 10/29/21 20:00 BUN 37 mg/dL (6-20) H 10/29/21 20:00 Creatinine 3.1 mg/dL (0.7-1.2) H 10/29/21 20:00 GFR Calculation 21.2 mL/min (90-130) L 10/29/21 20:00 Glucose 156 mg/dL (65-115) H 10/29/21 20:00 Calculated Osmolality 284 mOsm/kg (285-295) L 10/29/21 20:00 Lactic Acid 1.2 mmol/L (0.5-2.2) 10/29/21 21:00 Calcium 7.5 mg/dL (8.5-10.5) L 10/29/21 20:00 Magnesium 2.0 mg/dL (1.7-2.3) 10/29/21 20:00 Total Bilirubin 0.3 mg/dL (0.15-1.2) 10/29/21 20:00 AST 38 U/L (0-40) 10/29/21 20:00 ALT 12 U/L (0-41) 10/29/21 20:00 Alkaline Phosphatase 157 IU/L (40-130) H 10/29/21 20:00 Lactate Dehydrogenase 532 U/L (135-225) H 10/29/21 20:00 Troponin T Gen 5 ng/L 97 ng/L (0-15) H 10/29/21 20:00 C-Reactive Protein 170.4 mg/L (0.0-4.9) H 10/29/21 20:00 NT-Pro-B Natriuret Pep 1356 pg/mL (0-125) H 10/29/21 20:00 Total Protein 6.9 g/dL (6.6-8.7) 10/29/21 20:00 Albumin 2.6 g/dL (3.5-5.2) L 10/29/21 20:00 Globulin 4.3 g/dL (1.3-4.6) 10/29/21 20:00 Procalcitonin 0.30 ng/mL (0-0.5) 10/29/21 20:00 Influenza Type A Ag Negative (Negative) 10/29/21 20:45 Influenza Type B Ag Negative (Negative) 10/29/21 20:45 Imaging Data Other Imaging: Radiologist's impression: [address] [place] [address] XRay Report Signed Patient: Tim Robison Unit #: [id number] : 1965 Age/Sex: 55 / M ADM Date: 10/29/21 Loc: ER Room/Bed: Attending Dr: Ordering Provider/Ordering MD: Tucker Waldron MD Date of Service: 10/29/21 Procedure(s): XR chest 1V portable [id number] Accession Number(s): [id number] Report Number: [id number] PROCEDURE INFORMATION: Exam: XR Chest Exam date and time: 10/29/2021 8:33 PM Age: 55 years old Clinical indication: Dyspnea TECHNIQUE: Imaging protocol: XR of the chest. Views: 1 view. COMPARISON: CR XR chest 1V portable [id number] 01/24/2021 9:02 AM FINDINGS: Lungs: Multifocal bilateral airspace and ground-glass opacities are noted in the lungs concerning for pneumonic infiltrates including COVID-19 pneumonia. Pleural spaces: There is a small left pleural effusion. There is no evidence of pneumothorax. Heart/Mediastinum: The heart is enlarged. Vasculature: Central vessels are mildly engorged with cephalization of flow. Bones/joints: No acute abnormality. XR/XR chest 1V portable [id number] IMPRESSION: Multifocal bilateral airspace and ground-glass opacities are noted in the lungs concerning for pneumonic infiltrates including COVID-19 pneumonia. ? Dictated By: Allyssa Austin Signed By: Allyssa Austin Signed Date/Time: 10/29/212199 DD/ 32 Discharge Plan Discharge Patient Disposition: Admitted As Inpatient Clinical Impression: 2019 novel coronavirus-infected pneumonia (NCIP), Acute hypoxemic respiratory failure, Acute kidney injury superimposed on chronic kidney disease Condition: Stable Coding Level of Care Code ED Rotor Blade Installer for Chg Fwd Exam Comprehensive
[2021-10-29 20:59] LABS: Basophils % 0.2 %; Eosinophils % 0.1 %; Hematocrit 44.6 % (42.0-52.0); Hemoglobin 14.4 g/dL (11.7-16.6); Lymphocytes # 1.2 10^3/uL (0.8-4.8); Lymphocytes % 13.4 %; Mean Corpuscular HGB Conc 32.3 g/dL (30.0-36.0); Mean Corpuscular Hemoglobin 27.2 pg (28.0-34.0); Mean Corpuscular Volume 84.2 fl (80-94); Monocytes # 0.9 10^3/uL (0.2-0.9); Monocytes % 10.4 %; Neutrophils # 6.73 10^3/uL (1.8-7.7); Nucleated Red Blood Cells % 0 %; Platelet Count 258 10^3/cmm (130-400); Red Cell Distribution Width 15.3 % (12.1-15.1)
[2021-10-29] MEDS: acetaminophen 500 mg Tablet 1000 MG PO (21:09)
[2021-10-29] MEDS: lidocaine 2% viscous 15 ML, aluminum-mag hydrox-simethicon 30 ML, sucralfate oral liq 1 GM PO (21:10)
[2021-10-29] MEDS: dexamethasone 4 mg/mL INJ 6 MG IVP (21:12)
[2021-10-29] MEDS: sodium chloride 0.9% 1,000 ML 999 ML IV (21:14)
[2021-10-29 21:29] LABS: Troponin T (5th) Once 97 ng/L (0-15)
[2021-10-29 21:33] LABS: Lactic Sepsis W/Reflex 1.2 mmol/L (0.5-2.2)
[2021-10-29 21:43] LABS: Alanine Aminotransferase 12 U/L (0-41); Albumin Level 2.6 g/dL (3.5-5.2); Alkaline Phosphatase 157 IU/L (40-130); Anion Gap 19.5 (5-19); Aspartate Amino Transferase 38 U/L (0-40); Blood Urea Nitrogen 37 mg/dL (6-20); C Reactive Protein 170.4 mg/L (0.0-4.9); Calcium 7.5 mg/dL (8.5-10.5); Carbon Dioxide 18 mmol/L (22-29); Chloride 98 mmol/L (98-107); Globulin 4.3 g/dL (1.3-4.6); Glomerular Filtration Rate 21.2 mL/min (90-130); Glucose 156 mg/dL (65-115); Lactate Dehydrogenase 532 U/L (135-225); NT Pro B Type Natriuretic Pept 1356 pg/mL (0-125); Osmolality Calculated 284 mOsm/kg (285-295); Potassium 4.5 mmol/L (3.5-5.1); Sodium 131 mmol/L (136-145); Total Bilirubin 0.3 mg/dL (0.15-1.2); Total Protein 6.9 g/dL (6.6-8.7)
[2021-10-29 21:44] LABS: INR 0.97 (0.8-1.2)
[2021-10-29 21:45] VITALS: PULSE 84; RESP 18; O2SAT 92
[2021-10-29 21:45] LABS: Fibrinogen 637 mg/dL (174-498); Partial Thromboplastin Time 41.2 SECONDS (23.9-36.7)
[2021-10-29 21:55] VITALS: PULSE 88
[2021-10-29 21:57] LABS: Influenza A by IFA Negative (Negative); Influenza B by IFA Negative (Negative)
[2021-10-29 21:58] LABS: ABG PCO2 33.7 mmHg (35-45); ABG PH Result 7.38 (7.35-7.45); Arterial Blood Gas Hematocrit 40.1 % (42-52); Base Excess ABG -4.4 mmol/L (-2.0-2.0); Blood Gas Allen Test Pos; Blood Gas Sample Type Arterial; HCO3 ABG 19.9 mmol/L (22-26); PO2 ABG 61.4 mmHg (80.0-100.0)
[2021-10-29 21:59] LABS: Blood Gas Sample Site Radial, right; Oxygen Device NC
[2021-10-29 22:04] LABS: D Dimer 3.11 ug/mIFEU (0-0.59)
[2021-10-29] MEDS: remdesivir 200 MG in sodium chloride 0.9% (100 ml) 60 ML 100 MG IV (22:09)
[2021-10-29 22:12] VITALS: O2SAT 86
[2021-10-29 22:40] VITALS: O2SAT 91
--- NOTE | 2021-10-29 22:42 | ECG_ITS ---
[facility] Test Date: 2021-10-29 Pat Name: Tim Robison Department: Room: Gender: Male Psychology Assistant: : 1965 Requested By: Luciano Mariscal Order Number: [id number] Reading MD: PRADEEP ROJO Measurements Intervals [place] Rate: 88 P: 24 AR: 177 QRS: 109 QRSD: 120 T: 19 QT: 368 QTc: 447 Interpretive Statements SINUS RHYTHM INDETERMINATE AXIS RIGHT BUNDLE BRANCH BLOCK [120+ ms QRS DURATION, UPRIGHT V1, 40+ ms S IN I/aVL/V4/V5/V6] Compared to ECG 10/29/2021 21:20:30 Indeterminate axis now present Right-axis deviation no longer present Electronically Signed On 10-30-2021 19:51:21 TUMBLER OPERATOR by PRADEEP ROJO [id number]
--- NOTE | 2021-10-29 22:47 | P.HP_ITS ---
Providers/Chief Complaint Primary Care Provider: SERAFIN Reza Chief Complaint: COVID + History of Present Illness Tim Robison is a 55 year old male with a past medical history of insulin- dependent type 2 diabetes mellitus, diabetic neuropathy, history of chronic diabetic ulcer followed up by wound care, hypertension, hyperlipidemia who presents to [facility] due to shortness of breath fatigue, malaise, chest pain. Patient tells me that he tested positive for Covid Sang Carlson on the , since then he was checking his pulse ox and his pulse ox will drop below 90, he would have shortness of breath with exertion, chest pain with exertion, no lightheadedness, no dizziness, no diaphoresis, no diarrhea, no loss of taste, loss of smell, low-grade fevers, fatigue, malaise. Denies a cardiovascular history, denies a history of smoking, history of COPD, has not received Covid vaccines, has received flu vaccine Review of Systems Const: Reports: fever(s), chills, body aches, fatigue and malaise Eyes: Denies: change in vision or blurry vision ENMT: Denies: nasal congestion Card: Reports: chest pain and dyspnea on exertion; Denies: palpitations Resp: Reports: dyspnea and non-productive cough; Denies: productive cough or wheezing GI: Denies: abdominal pain, nausea, vomiting, hematemesis, diarrhea, constipation, hematochezia or melena : Denies: flank pain, difficulty urinating, dysuria or urinary frequency Musc: Denies: neck pain or back pain Skin/Breast: Denies: rash Neuro: Denies: headache(s), dizziness or vertigo Endo: Denies: polyuria or polydipsia Medications/Allergies Home Medications Medication Instructions Recorded Confirmed Last Taken Type lovastatin 40 mg tablet 40 mg PO DAILY 12/22/19 10/05/21 Unknown History pregabalin 200 mg capsule (Lyrica) 200 mg PO BID 12/22/19 10/29/21 Unknown History amlodipine 10 mg tablet 10 mg PO DAILY 10/11/20 10/29/21 Unknown History atorvastatin 80 mg tablet 80 mg PO DAILY 10/11/20 10/05/21 Unknown History gabapentin 300 mg capsule 300 mg PO BID cap 10/11/20 10/29/21 Unknown History insulin detemir U-100 100 unit/mL 48 unit SUBCUT BID ml 10/11/20 10/29/21 Unknown History (3 mL) subcutaneous pen (Levemir FlexTouch U-100 Insulin) insulin lispro 100 unit/mL 5 unit SUBCUT TID 10/11/20 10/29/21 Unknown History subcutaneous pen (Humalog KwikPen (U-100) Insulin) metoprolol succinate 100 mg 100 mg PO BID 10/11/20 10/29/21 Unknown History tablet,extended release 24 hr omeprazole 40 mg capsule,delayed 40 mg PO DAILY 10/11/20 10/29/21 Unknown History release cyanocobalamin (vitamin B-12) 100 mcg .ROUTE 05/03/21 10/05/21 Unknown History mcg/mL injection solution olmesartan 20 mg tablet 20 mg PO DAILY 05/03/21 10/29/21 Unknown History Allergies Allergy/AdvReac Type Severity Reaction Status Date / Time No Known Allergies Allergy Verified 10/05/21 10:01 PFSH Acute PFSH: Medical History Diabetes Neuropathy Onychomycosis of nail of digit of hand Surgical History H/O circumcision H/O colonoscopy 7 yrs ago Status post debridement of ulcer of heel Family History Brother Cancer Sister Lung disease Mother Heart failure Father Chronic kidney failure Denies family history of Anesthesia complication Bleeding disorder Social History Second hand smoke exposure: No Alcohol intake: never Adopted: No Lives independently: Yes Marital status: Single Current occupational status: disabled History of recent travel: No Vitals/I&O/Wt Last Vital Signs Temp 99.4 F 10/29/21 20:33 Pulse 88 10/29/21 21:55 Resp 18 10/29/21 21:45 BP 131/65 10/29/21 20:33 Pulse Ox 86 L 10/29/21 22:12 Weight last 48 hrs Weight 136.078 kg Physical Exam Const: COMMON NORMALS: no acute distress and patient oriented x3 GENERAL APPEARANCE: cooperative, well kempt and well developed HENMT: COMMON NORMALS: normocephalic, Normal external nose present and oropharynx normal HEAD & SCALP: normocephalic FACE & SINUS: normal facial exam NOSE: Normal external nose present MOUTH: Normal oral and palatal mucosa present THROAT: posterior oropharynx normal Eye: COMMON NORMALS: Equal, round and reactive pupils present, EOMs intact bilaterally, conjunctivae normal and no scleral icterus CONJUNCTIVA: Yes conjunctivae normal PUPIL: Yes Equal, round and reactive pupils present Neck/C-Spine: COMMON NORMALS: full ROM, no lymphadenopathy, no meningeal signs, no JVD, Thyroid normal and No carotid bruits THYROID: Thyroid normal Lymph: LYMPHATIC: no lymphadenopathy noted Chest: COMMONS NORMALS: normal inspection of the chest Resp: COMMON NORMALS: normal respiratory effort, No retractions and No use of accessory muscles AUSCULTATION: crackles and wheezes Cardio: COMMON NORMALS: no JVD, regular rate, regular rhythm, S1 normal heart sound present, S2 normal heart sound present, No murmurs present (Cardio) and Peripheral pulses 2+ throughout RATE: regular rate RHYTHM: regular rhythm HEART SOUNDS: S1 normal heart sound present and S2 normal heart sound present PERIPHERAL PULSES: Peripheral pulses 2+ throughout GI: COMMON NORMALS: Normal to inspection, nondistended, normoactive bowel s ounds present, Soft to palpation, non-tender and No hepatosplenomegaly present PALPATION: Yes Soft to palpation and Yes No hepatosplenomegaly present : COMMON NORMALS: Yes no CVA tenderness BLADDER/KIDNEY EXAM: Yes no CVA tenderness Back/Pelvis: COMMON NORMALS: no CVA tenderness Extremity: COMMON NORMALS: normal to inspection, full ROM, capillary refill normal, no calf tenderness and no pedal edema Neuro: COMMON NORMALS: patient oriented x3, CN's II-XII intact bilaterally, moves all extremities, no focal motor deficits and no sensory deficits noted MENINGEAL SIGNS: Yes no meningeal signs Psych: COMMON NORMALS: mental status grossly normal, Normal thought process present, cooperative and speech normal APPEARANCE: Yes well kempt SPEECH: Yes normal speech THOUGHT PROCESS: Normal thought process present Skin: COMMON NORMALS: turgor normal and no jaundice NARRATIVE SKIN EXAM: Diabetic ulcer, right foot, plantar aspect, 2 x 2 cm, healing well GENERAL SKIN EXAM: turgor normal Data : 10/29/21 20:00 10/29/21 20:00 A&P Assessment and plan (1) 2019 novel coronavirus-infected pneumonia (NCIP): Status: Acute (2) Acute hypoxemic respiratory failure: Status: Acute (3) Acute kidney injury superimposed on chronic kidney disease: Status: Acute (4) Non-healing ulcer: Status: Acute Qualifiers: Non-pressure ulcer stage: with necrosis of bone Qualified Code(s): L98.494 - Non-pressure chronic ulcer of skin of other sites with necrosis of bone (5) 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: Status: Acute (6) Uncontrolled type 2 diabetes with neuropathy: Status: Acute (7) Hyperlipidemia: Status: Acute (8) Diabetes: Status: Acute (9) NSTEMI (non-ST elevated myocardial infarction): Status: Acute (10) Hyponatremia: Status: Acute Plan Acute hypoxic respiratory failure secondary COVID-19 Plan -On 4 L -Admit to general medical floors -Decadron day 1 of 10 -He received 1 dose of remdesivir in the emergency room, however his GFR is 21, hold further remdesivir doses -We will consider Tocilizumab based on clinical progress -Rocephin azithromycin for second bacterial pneumonia -D-dimer is elevated at 3, cannot do VQ scan, cannot do CT angiogram, will do bilateral extremity ultrasound, cardiac ultrasound, trend D-dimer if it continues to be elevated will consider placing on therapeutic Lovenox -Follow sputum cultures, blood cultures, urine bacterial antigens, Legionella -Vitamin C, zinc, vitamin D - incentive spirometer, flutter valve -Ipratropium, budesonide -Full code -Lovenox for DVT prophylaxis Type 2 diabetes mellitus Levemir 30 units twice daily, moderate to sliding scale, A1c NSTEMI -Has complaints of chest pain, none currently -Continue aspirin 81 mg -Statin on hold until I get a CPK back -Serial troponins, serial EKGs, telemetry monitoring, monitor for chest pain -Baseline troponin 97 -Cardiac echocardiogram ARJUN on CKD, creatinine 3.1, start gentle IV hydration -CPK pending -Renal ultrasound -UA Hyponatremia, likely sec to dehydration, IV fluids Nonhealing diabetic ulcer, right foot healing well continue to monitor right foot Attestations Medical Necessity Statement*: Patient requires hospitalization, inpatient, greater than 2 midnights, for COVID-19 pneumonia, NSTEMI, chest pain, acute kidney injury hypoxia, Coding Level of Care Code New Pt Acute Data Support Analyst for Chg Fwd Patient Type New Exam Comprehensive Medical Decision Making High Complexity Diagnoses 2018 novel coronavirus-infected pneumonia (NCIP) U07.1; J12.82 Acute hypoxemic respiratory failure J96.01 Acute kidney injury superimposed on chronic kidney disease N17.9; N18.9 Non-healing ulcer L98.494 Non-pressure ulcer stage: with necrosis of bone 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 E11.22 Uncontrolled type 2 diabetes with neuropathy E11.40; E11.65 Hyperlipidemia E78.5 Diabetes E11.9 NSTEMI (non-ST elevated myocardial infarction) I21.4 Hyponatremia E87.1 Time Spent (min) 55
[2021-10-29 23:22] LABS: SARS Covid-2 Antigen Negative (Negative)
[2021-10-29 23:59] LABS: Troponin(5th) Baseline 85 ng/L (0-15)
[2021-10-30] VITALS (14 sets, daily range): BP systolic 100–133; BP diastolic 52–74; PULSE 69–100; RESP 15–20; TEMP 36.3–37.2; O2SAT 90–94
[2021-10-30] LABS: C Reactive Protein 151.5 mg/L (0.0-4.9); Creatine Phosphokinase 87 U/L (39-308)
[2021-10-30 00:07] LABS: Procalcitonin 0.26 ng/mL (0-0.5)
[2021-10-30 00:37] LABS: Glucose Point of Care 205 mg/dL (70-110)
--- NOTE | 2021-10-30 00:55 | US_ITS ---
WS: [id number] ULTRASOUND RENAL TECHNIQUE: Ultrasound examination of both kidneys. CLINICAL INFORMATION: solo COMPARISON: March 25, 2020 FINDINGS: RIGHT: Right kidney is normal in size and appearance. Echogenicity: Normal. Cortical thickness: 2.3 cm; Normal. Hydronephrosis: None. Perinephric fluid: None. Right kidney measures: 11.2 cm x 5.4 cm x 4.9 cm. LEFT: Left kidney is normal in size and appearance. Echogenicity: Normal. Cortical thickness: 2.2 cm; Normal. Hydronephrosis: None. Perinephric fluid: None. Left kidney measures: 12.3 cm x 5.3 cm x 4.5 cm. Prevoid bladder volume 462 cc. Postvoid bladder volume 138 cc Prostate measures 2.9 x 4.2 x 2.5 cm US/US renal BI* [id number] IMPRESSION: 1. No hydronephrosis in either kidney. 2. Significant Postvoid bladder residual 138 cc 3. 2 right ureteral jets visualized. No definite left ureteral jet.
--- NOTE | 2021-10-30 00:55 | USCV_ITS ---
EnriquetaArias zelayabam Age: 55 Gender: M : 1965 Exam Date: 10/30/2021 10:35 Ordering Phys: Luciano Mariscal MD Technologist: MC [place]am [place] [facility] [place]: CHRONIC leg edema. shortness of breath with COVID isolation. No hx DVT per patient. HISTORY: CHRONIC leg edema. shortness of breath with COVID isolation. No hx DVT per patient. PROCEDURES: The venous duplex Doppler examination of both lower extremities was performed in the standard fashion. The following venous structures were evaluated: common femoral vein, profunda vein, proximal portion of the greater saphenous vein, superficial femoral vein, and the popliteal vein. FINDINGS: Normal 2-D Doppler and augmentation and compressibility throughout the lower extremity venous structures. Additional imaging through the proximal calf veins also reveals no thrombus. Limited evaluation of the greater saphenous vein is patent with no thrombus. CONCLUSIONS No DVT bilateral lower extremities. Dr. Linda Posey DO (Electronically Signed) Final Date: 30 October 2021 13:18 S
--- NOTE | 2021-10-30 00:55 | USCV_ITS ---
Tim Robison Age: 55 Gender: M : 1965 Exam Date: 10/30/2021 11:10 Ordering Phys: Luciano Mariscal MD Technologist: MC [place]am [place] [facility] [place]ication: Chronic shortness of breath, Morbid obesity, COVID BP: / HR: 98 Rhythm: Sinus Technical Quality: Adequate MEASUREMENTS (Male / Female) Normal Values 2D ECHO LV Diastolic Diameter PLAX 3.3 cm 4.2 - 5.9 / 3.9 - 5.3 cm LV Systolic Diameter PLAX 2.3 cm IVS Diastolic Thickness 1.6 cm 0.6 - 1.0 / 0.6 - 0.9 cm IVS Systolic Thickness 2.0 cm LVPW Diastolic Thickness 1.1 cm 0.6 - 1.0 / 0.6 - 0.9 cm LVPW Systolic Thickness 1.5 cm LVOT Diameter 2.3 cm LV Ejection Fraction 2D Teich 59.1 % LV Ejection Fraction MOD 2C 65.4 % LV Ejection Fraction 2C AL 67.3 % LA Diameter 4.7 cm LA Width 4.3 cm LA Height 5.2 cm RA Width 2.4 cm RA Height 3.7 cm Aorta at Sinotubular Diameter 3.6 cm M-MODE Aortic Annulus Diameter 3.6 cm LA Ao Ratio MM 1.3 MV E Point Septal Separation 0.6 cm DOPPLER AV Peak Velocity 160.0 cm/s LVOT Peak Velocity 145.0 cm/s AV Area Cont Eq vti 3.0 cm squared AV Area Cont Eq pk 3.8 cm squared MV Peak Velocity 140.0 cm/s MV Area PHT 3.0 cm squared Mitral E to A Ratio 0.7 MV E' Velocity 45.5 cm/s Mitral E to MV E' Ratio 10.2 Mitral E to LV E' Lateral Ratio 7.8 Mitral E to LV E' Septal Ratio 14.9 TR Peak Velocity 222.0 cm/s TR Peak Gradient 19.7 mmHg TV Peak E Velocity 72.0 cm/s Right Atrial Pressure 5.0 mmHg Pulmonary Artery Systolic Pressu 24.7 mmHg PV Peak Velocity 173.0 cm/s FINDINGS Left Ventricle Normal left ventricular size, systolic function and wall thickness, with no regional wall motion abnormalities. Left ventricular ejection fraction is estimated at 65-70%. No diagnostic regional wall motion normality. Grade I diastolic dysfunction (abnormal relaxation filling pattern), normal to mildly elevated filling pressures. Abnormal septal motion consistent with conduction abnormality. Right Ventricle Normal right ventricular size and systolic function. Right ventricular systolic pressure 23 mmHg. Right Atrium Normal right atrial size. Left Atrium Normal left atrial size. Mitral Valve Structurally normal mitral valve. No mitral valve stenosis. No mitral valve regurgitation. Aortic Valve Aortic valve not well visualized. Probably trileaflet aortic valve. No aortic valve stenosis. No aortic valve regurgitation. Tricuspid Valve Structurally normal tricuspid valve. Trace tricuspid valve regurgitation. Pulmonic Valve Pulmonic valve not well visualized. Pericardium No pericardial effusion. Aorta Normal size aortic root. Normal-sized inferior vena cava. CONCLUSIONS 1. This is a technically difficult study with off axis images. 2. Normal left ventricular size, systolic function and wall thickness, with no regional wall motion abnormalities. Left ventricular ejection fraction is estimated at 65-70%. No diagnostic regional wall motion normality. Grade I diastolic dysfunction (abnormal relaxation filling pattern), normal to mildly elevated filling pressures. 3. Normal right ventricular size and systolic function. 4. Pulmonary artery pressure estimated at 23 mmHg. 5. No prior similar studies to compare Fidelia Gomez MD (Electronically Signed) Final Date: 30 October 2021 17:13 S
--- NOTE | 2021-10-30 00:55 | ECG_ITS ---
Test Date: 2021-10-30 Pat Name: Tim Robison Department: Room: 252 Gender: Male Cabin Service Agent: : 1965 Requested By: Luciano Mariscal Order Number: [id number] Reading MD: PRADEEP ROJO Measurements Intervals [place] Rate: 78 P: 26 [place]: 171 QRS: 125 QRSD: 131 T: 33 QT: 406 QTc: 463 Interpretive Statements SINUS RHYTHM RIGHT AXIS DEVIATION [QRS AXIS > 100] RIGHT BUNDLE BRANCH BLOCK [120+ ms QRS DURATION, UPRIGHT V1, 40+ ms S IN I/aVL/V4/V5/V6] Compared to ECG 10/29/2021 23:00:30 Right-axis deviation now present Indeterminate axis no longer present Electronically Signed On 10-30-2021 19:52:28 PETROLEUM PLANT OPERATOR by PRADEEP ROJO [id number]
[2021-10-30] MEDS: azithromycin 500 MG in sodium chloride 0.9% 250 ML 250 MG IV (01:27)
[2021-10-30] MEDS: enoxaparin 40 mg/0.4 mL Syringe SUBCUT (01:29)
[2021-10-30] MEDS: cefTRIAXone 1,000 MG in sodium chloride 0.9% (plus) 50 ML 100 MG IV (01:45)
[2021-10-30 02:24] LABS: Troponin 5 2HR 92.66 ng/L (0-15)
[2021-10-30 02:29] LABS: Troponin 5 2HR Delta 7.66 ABS# (0-10)
[2021-10-30 04:19] LABS: ABG PCO2 34.8 mmHg (35-45); ABG PH Result 7.28 (7.35-7.45); Arterial Blood Gas Hematocrit 39.3 % (42-52); Base Excess ABG -9.3 mmol/L (-2.0-2.0); Blood Gas Allen Test Pos; Blood Gas Sample Type Arterial; HCO3 ABG 16.5 mmol/L (22-26); PO2 ABG 67.7 mmHg (80.0-100.0)
[2021-10-30 04:20] LABS: Blood Gas Sample Site Radial, right; Oxygen Device NC
--- NOTE | 2021-10-30 04:34 | ECG_ITS ---
[facility] Test Date: 2021-10-30 Pat Name: Tim Robison Department: Room: 252 Gender: Male Cooler Tender: : 1965 Requested By: Luciano Mariscal Order Number: [id number] Reading MD: PRADEEP ROJO Measurements Intervals [place] Rate: 71 P: 31 MA: 174 QRS: 120 QRSD: 132 T: 35 QT: 419 QTc: 457 Interpretive Statements SINUS RHYTHM RIGHT AXIS DEVIATION [QRS AXIS > 100] RIGHT BUNDLE BRANCH BLOCK [120+ ms QRS DURATION, UPRIGHT V1, 40+ ms S IN I/aVL/V4/V5/V6] Compared to ECG 10/30/2021 02:50:09 No significant changes Electronically Signed On 10-30-2021 19:52:22 SENIOR FOREMAN by PRADEEP ROJO [id number]
[2021-10-30 05:59] LABS: Basophils % 0.1 %; Hematocrit 41.3 % (42.0-52.0); Hemoglobin 12.9 g/dL (11.7-16.6); Lymphocytes # 0.6 10^3/uL (0.8-4.8); Lymphocytes % 8.6 %; Mean Corpuscular HGB Conc 31.2 g/dL (30.0-36.0); Mean Corpuscular Hemoglobin 26.7 pg (28.0-34.0); Mean Corpuscular Volume 85.3 fl (80-94); Mean Platelet Volume 13.1 fL (7.4-10.4); Monocytes # 0.2 10^3/uL (0.2-0.9); Monocytes % 3.2 %; Neutrophils # 6.16 10^3/uL (1.8-7.7); Neutrophils % 86.4 %; Nucleated Red Blood Cells % 0 %; Platelet Count 245 10^3/cmm (130-400); Red Blood Count 4.84 10^6/uL (4.1-5.3); Red Cell Distribution Width 15.3 % (12.1-15.1); White Blood Count 7.1 10^3/uL (4.0-10.0)
[2021-10-30 06:11] LABS: D Dimer 2.31 ug/mIFEU (0-0.59)
[2021-10-30 06:16] LABS: Lactic Sepsis W/Reflex 0.9 mmol/L (0.5-2.2)
[2021-10-30 06:26] LABS: Troponin 5 6HR 87.47 ng/L (0-15)
[2021-10-30 06:30] LABS: NT Pro B Type Natriuretic Pept 1553 pg/mL (0-125); Procalcitonin 0.29 ng/mL (0-0.5); Thyroid Stimulating Hormone 0.89 uIU/mL (0.27-4.20)
[2021-10-30 06:36] LABS: Troponin 5 6HR Delta 2.47 ng/L (0-12)
[2021-10-30 06:42] LABS: Alanine Aminotransferase 10 U/L (0-41); Albumin Level 1.9 g/dL (3.5-5.2); Alkaline Phosphatase 130 IU/L (40-130); Anion Gap 22.4 (5-19); Aspartate Amino Transferase 34 U/L (0-40); Blood Urea Nitrogen 38 mg/dL (6-20); Calcium 7.7 mg/dL (8.5-10.5); Carbon Dioxide 13 mmol/L (22-29); Chloride 101 mmol/L (98-107); Chol HDL Ratio 5.83 mg/dL (1.0-5.00); Cholesterol 105 mg/dL (0-200); Creatine Phosphokinase 89 U/L (39-308); Glomerular Filtration Rate 22.9 mL/min (90-130); Glucose 273 mg/dL (65-115); HDL Cholesterol 18 mg/dL (60-100); LDL Cholesterol Calculated 54 mg/dL (50-129); Magnesium 2.1 mg/dL (1.7-2.3); Osmolality Calculated 291 mOsm/kg (285-295); Phosphorus 3.4 mg/dL (2.5-4.5); Potassium 5.4 mmol/L (3.5-5.1); Sodium 131 mmol/L (136-145); Total Bilirubin 0.3 mg/dL (0.15-1.2); Total Protein 5.9 g/dL (6.6-8.7); Triglycerides 165 mg/dL (0-150)
[2021-10-30 06:52] LABS: Estmated Average Glucose 229; Hemoglobin A1C 9.6 % (4.0-6.0)
[2021-10-30 06:54] LABS: Glucose Point of Care 281 mg/dL (70-110)
[2021-10-30] MEDS: ipratropium-albuterol 3 mL Neb INHALATION ×3 (08:29→20:03)
[2021-10-30] MEDS: budesonide 0.5 mg/2 mL Neb INHALATION ×2 (08:29→20:03)
[2021-10-30] MEDS: cholecalciferol (vitamin D3) 1,000 unit Tablet 1000 UNIT PO (09:27)
[2021-10-30] MEDS: gabapentin 300 mg Capsule PO ×2 (09:27→17:37)
[2021-10-30] MEDS: zinc gluconate 50 mg Tablet PO (09:27)
[2021-10-30] MEDS: pantoprazole DR 40 mg Tablet PO (09:27)
[2021-10-30] MEDS: pregabalin 100 mg Capsule 200 MG PO (09:27)
[2021-10-30] MEDS: metoprolol succinate ER (24 HR) 100 mg Tablet PO ×2 (09:27→17:37)
[2021-10-30] MEDS: docusate sodium 100 mg Capsule PO ×2 (09:27→17:37)
[2021-10-30] MEDS: ascorbic acid 500 mg Tablet PO ×2 (09:27→17:37)
[2021-10-30] MEDS: aspirin 81 mg EC Tablet PO (09:28)
[2021-10-30] MEDS: amlodipine 10 mg Tablet PO (09:28)
[2021-10-30] MEDS: insulin lispro 100 unit/1 mL SUBCUT ×4 (09:59→20:41)
--- NOTE | 2021-10-30 10:25 | CT_ITS ---
WS: [id number] CT CHEST TECHNIQUE: Noncontrast CT of the chest with coronal and sagittal reformatted images. CLINICAL INFORMATION: covid, sob COMPARISON: None. DLP: 955.[address] scans at [facility] use at least one of these dose optimization techniques: automated e xposure control; mA and/or kV adjustment per patient size (includes targeted exams where dose is matc hed to clinical indication); or iterative reconstruction. FINDINGS: Diffuse bilateral hazy groundglass infiltrates throughout both lungs compatible with Covid 19 pneumon ia. Bilateral hilar bronchovascular thickening. No focal consolidation or pleural fluid. Normal caliber thoracic aorta. Normal caliber descending tho racic aorta. Coronary calcification. No axillary lymphadenopathy. Normal adrenal glands. Normal GE junction. Fatty atrophy of the pancreas. Suggestion of faint choleli thiasis. Small splenules. Mild thoracic kyphosis. Disc space narrowing in the mid thoracic spine with mild spondylitic changes. CT/CT chest wo con [id number] IMPRESSION: 1. Diffuse hazy bilateral groundglass infiltrates throughout both lungs compat ible with Covid 19 pneumonia. 2. No focal consolidation or pleural fluid. 3. No mediastinal or hilar lymphadenopathy. 4. No other acute findings.
[2021-10-30 11:20] LABS: Iron 18 ug/dL (59-158); Percent Saturation 13.6 % (20-50); Total Iron Binding Capacity 132 mcg/dl; Unsaturated Iron Binding 114 ug/dL (112-347)
--- NOTE | 2021-10-30 12:14 | PC.NURSE ---
Patient to CT at this time.
[2021-10-30 12:36] LABS: Glucose Point of Care 468 mg/dL (70-110)
[2021-10-30 13:12] LABS: Add Urine Microscopic? YES; Bilirubin Urine Neg (Negative); Blood Urine Neg (Negative); Glucose Urine UA 2+ (Normal); Ketones Urine 1+ (Negative); Leukocyte Esterase Urine Negative (Negative); Nitrate Urine Negative (Negative); Protein Urine 3+ (Negative); Specific Gravity, Urine 1.015 (1.005-1.030); Urine Appearance Clear (CLEAR); Urine Color Yellow (Yellow); Urobilinogen Urine Norm (Negative); pH Urine 5 (5-7)
--- NOTE | 2021-10-30 13:14 | PM.PN ---
Subjective Subjective: Interval history: Today morning on examination seen by ultrasound has been done. Patient is awake alert oriented. On 3 L saturating 94%. Hemodynamically has remained stable. Denies any nausea, vomiting, headache. Vitals/I&O/Wt Last Vital Signs Temp 97.3 F L 10/30/21 04:00 Pulse 71 10/30/21 08:35 Resp 16 10/30/21 08:35 BP 100/63 10/30/21 04:00 Pulse Ox 93 10/30/21 08:35 10/29/21 10/30/21 10/30/21 22:59 06:59 14:59 Intake Total 1360 / 1360 Output Total 250 / 250 Balance 1110 / 1110 Weight last 48 hrs Weight 136.078 kg Weight 136.078 kg Physical Exam Urinary Catheter Management: Reyes: Cath Placed During This Visit: yes Urinary Catheter Date of Insertion: 10/30/21 Urinary Catheter Time of Insertion: 12:00 Data : 10/30/21 05:21 10/30/21 05:21 Micro: Microbiology 10/29/21 23:12 Blood Culture - Preliminary Blood SPECIMEN COLLECTED 10/29/21 23:15 Blood Culture - Preliminary Blood SPECIMEN COLLECTED A&P Assessment and plan (1) 2019 novel coronavirus-infected pneumonia (NCIP): Status: Acute (2) Acute hypoxemic respiratory failure: Status: Acute (3) Acute kidney injury superimposed on chronic kidney disease: Status: Acute (4) Non-healing ulcer: Status: Acute Qualifiers: Non-pressure ulcer stage: with necrosis of bone Qualified Code(s): L98.494 - 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 Oxygen supplementation keeping saturation over 88%. Dexamethasone 6 mg daily. Received 200 mg of remdesivir on admission. Holding off since then because of ARJUN on CKD. Given high inflammatory markers given 1 dose of Actemra today. Pro-Rigo negative. Low suspicion of bacterial pneumonia for now. No leukocytosis. Vitamin C, zinc. DuoNebs every 6 hour, budesonide twice daily. Pulmonary toilet with incentive spirometry flutter valve. We will monitor inflammatory markers including CRP and D-dimer every 48 hours. D-dimer elevated. Cannot go to do CTA given ARJUN on CKD. Unfortunately VQ scan will not help much as well. Getting echocardiogram, lower limb Dopplers today. Switch from Lovenox to Eliquis 5 mg twice daily. Will monitor for anemia or blood loss. Check sputum culture, procalcitonin, urine Legionella, bacterial antigen, blood culture. Procalcitonin negative. Low suspicion of bacterial infection for now. For now continue azithromycin to finish a 5-day course. Given hypoxia will try to keep patient as negative as possible. Patient clinically dehydrated for now. For now continue with gentle hydration. Normal saline at 50 cc/h. Strict input output charting, daily weights. Reyes catheterization. Type 2 diabetes mellitus Levemir 30 units twice daily, moderate to sliding scale, A1c NSTEMI: No active chest pain. Continue aspirin 81 mg, statin -Statin on hold until I get a CPK back -Cardiac echocardiogram ARJUN on CKD,: Gentle hydration. Renal ultrasound ordered. Hold renal ultrasound without any acute abnormality. Urine creatinine, urine lites, urine eosinophils History of chronic osteomyelitis: Saw ID as an outpatient. Has already finished multiple antibiotic course for the same. As per the notes discussion was that patient is already finished multiple antibiotic courses and plan is to continue wound care as before. Hyponatremia, likely sec to dehydration, IV fluids. Full code. Carb consistent cardiac renal nondialysis diet. Eliquis will help with DVT prophylaxis. Protonix for PUD prophylaxis Attestations Medical Necessity Statement*: Requires further hospitalization for management of hypoxia secondary COVID-19 pneumonia in setting of ARJUN on CKD, chronic osteomyelitis Time Spent in Patient Care: Greater than 35 minutes Coding Level of Care Code Acute Brick Paving Checker for [facility] Fw Diagnoses 2019 novel coronavirus-infected pneumonia (NCIP) U07.1; J12.82 Acute hypoxemic respiratory failure J96.01 Acute kidney injury superimposed on chronic kidney disease N17.9; N18.9 Non-healing ulcer L98.494 Non-pressure ulcer stage: with necrosis of bone 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 E11.22 Uncontrolled type 2 diabetes with neuropathy E11.40; E11.65 Hyperlipidemia E78.5 Diabetes E11.9 NSTEMI (non-ST elevated myocardial infarction) I21.4 Hyponatremia E87.1
[2021-10-30 13:22] LABS: Bacteria Urine 1+ /hpf; RBC Urine 0-4 /hpf (0-2); Squamous Epithelial Cell Urine 0-4 /hpf (0-5); WBC Urine 0-4 /hpf (0-5)
--- NOTE | 2021-10-30 14:09 | PC.OT ---
OT NOTE: OT EVALUATION ORDERS RECEIVED. PATIENT OFF UNIT AT THIS TIME. WILL ATTEMPT EVALUATION AGAIN TOMORROW.
[2021-10-30] MEDS: sodium chloride 0.9% 1,000 ML 50 ML IV (14:53)
[2021-10-30] MEDS: tocilizumab 800 MG in sodium chloride 0.9% (100 ml) 100 ML 100 MG IV (15:16)
--- NOTE | 2021-10-30 16:18 | PC.NURSE ---
Patient talking to his sister Chari on the phone at this time.
[2021-10-30 17:24] LABS: Glucose Point of Care 519 mg/dL (70-110)
[2021-10-30 17:24] LABS: Glucose Point of Care 502 mg/dL (70-110)
[2021-10-30] MEDS: apixaban 5 mg Tablet PO (20:38)
[2021-10-30] MEDS: dexamethasone 10 mg/mL INJ 6 MG IVP (20:38)
[2021-10-30 20:56] LABS: Glucose Point of Care 417 mg/dL (70-110)
[2021-10-31] VITALS (14 sets, daily range): BP systolic 116–144; BP diastolic 71–89; PULSE 71–81; RESP 16–18; TEMP 36.4–37; O2SAT 91–98
[2021-10-31] MEDS: cefTRIAXone 1,000 MG in sodium chloride 0.9% (plus) 50 ML 100 MG IV (01:29)
--- NOTE | 2021-10-31 01:54 | PC.NURSE ---
Patient resting comfortable in bed most of the night. Alert and oriented. Denies pain. Fluids infusing per md order. Will continue to monitor.
--- NOTE | 2021-10-31 05:04 | PC.NURSE ---
Frequent safety and comfort rounds continue. Orders and/or nursing care completed as indicated. Patient monitored for response to intervention and treatment(s). Education provided includes IV antibiotics and insulin. Patient and/or utility sales representative verbalize understanding. Will continue to monitor.
[2021-10-31 05:19] LABS: ABG PH Result 7.36 (7.35-7.45); Arterial Blood Gas Hematocrit 42.9 % (42-52); Base Excess ABG -4.3 mmol/L (-2.0-2.0); Blood Gas Sample Site Radial, left; Blood Gas Sample Type Arterial; HCO3 ABG 20.5 mmol/L (22-26); Oxygen Device NC
[2021-10-31 05:40] LABS: Basophils % 0.1 %; Hematocrit 43.7 % (42.0-52.0); Hemoglobin 13.5 g/dL (11.7-16.6); Lymphocytes # 0.6 10^3/uL (0.8-4.8); Lymphocytes % 8.3 %; Mean Corpuscular HGB Conc 30.9 g/dL (30.0-36.0); Mean Corpuscular Hemoglobin 27.1 pg (28.0-34.0); Mean Corpuscular Volume 87.6 fl (80-94); Monocytes # 0.3 10^3/uL (0.2-0.9); Monocytes % 4.5 %; Neutrophils # 6.07 10^3/uL (1.8-7.7); Nucleated Red Blood Cells % 0 %; Platelet Count 249 10^3/cmm (130-400); Red Blood Count 4.99 10^6/uL (4.1-5.3); Red Cell Distribution Width 15.5 % (12.1-15.1); White Blood Count 7.1 10^3/uL (4.0-10.0)
[2021-10-31 05:42] LABS: Mean Platelet Volume 13.1 fL (7.4-10.4)
[2021-10-31 06:54] LABS: Glucose Point of Care 345 mg/dL (70-110)
[2021-10-31 07:15] LABS: INR 1.01 (0.8-1.2)
[2021-10-31 07:18] LABS: D Dimer 1.84 ug/mIFEU (0-0.59)
[2021-10-31] MEDS: budesonide 0.5 mg/2 mL Neb INHALATION ×2 (07:51→20:06)
[2021-10-31] MEDS: ipratropium-albuterol 3 mL Neb INHALATION ×4 (07:51→20:06)
[2021-10-31 08:14] LABS: NT Pro B Type Natriuretic Pept 2256 pg/mL (0-125); Procalcitonin 0.24 ng/mL (0-0.5)
[2021-10-31] MEDS: gabapentin 300 mg Capsule PO ×2 (08:24→17:39)
[2021-10-31] MEDS: amlodipine 10 mg Tablet PO (08:24)
[2021-10-31] MEDS: zinc gluconate 50 mg Tablet PO (08:24)
[2021-10-31] MEDS: pantoprazole DR 40 mg Tablet PO (08:24)
[2021-10-31] MEDS: cholecalciferol (vitamin D3) 1,000 unit Tablet 1000 UNIT PO (08:24)
[2021-10-31] MEDS: tamsulosin 0.4 mg Capsule PO (08:24)
[2021-10-31] MEDS: metoprolol succinate ER (24 HR) 100 mg Tablet PO ×2 (08:24→17:39)
[2021-10-31] MEDS: ascorbic acid 500 mg Tablet PO ×2 (08:24→17:39)
[2021-10-31 08:25] LABS: Alanine Aminotransferase 15 U/L (0-41); Albumin Level 2.1 g/dL (3.5-5.2); Alkaline Phosphatase 167 IU/L (40-130); Aspartate Amino Transferase 38 U/L (0-40); Blood Urea Nitrogen 49 mg/dL (6-20); C Reactive Protein 128.8 mg/L (0.0-4.9); Calcium 8.2 mg/dL (8.5-10.5); Carbon Dioxide 16 mmol/L (22-29); Chloride 103 mmol/L (98-107); Creatine Phosphokinase 78 U/L (39-308); Globulin 4.2 g/dL (1.3-4.6); Glucose 300 mg/dL (65-115); Magnesium 2.4 mg/dL (1.7-2.3); Osmolality Calculated 298 mOsm/kg (285-295); Sodium 132 mmol/L (136-145); Total Bilirubin 0.2 mg/dL (0.15-1.2); Total Protein 6.3 g/dL (6.6-8.7)
[2021-10-31] MEDS: docusate sodium 100 mg Capsule PO ×2 (08:25→17:39)
[2021-10-31] MEDS: aspirin 81 mg EC Tablet PO (08:27)
[2021-10-31] MEDS: azithromycin 250 mg Tablet 500 MG PO (08:27)
[2021-10-31] MEDS: apixaban 5 mg Tablet PO ×2 (08:28→20:59)
[2021-10-31] MEDS: insulin lispro 100 unit/1 mL SUBCUT ×3 (08:29→17:40)
[2021-10-31 08:36] LABS: Anion Gap 18.1 (5-19); Potassium 5.1 mmol/L (3.5-5.1)
[2021-10-31 11:06] LABS: Glucose Point of Care 367 mg/dL (70-110)
--- NOTE | 2021-10-31 12:48 | P.CONIM_ITS ---
Providers/Reason For Consult Consulting Physician/Specialty*: dae ng md / telenephrology Reason for Consult*: ARJUN on CKD stage 3 Requesting Physician: Dr. Tremaine Mariscal Attending Physician: Luciano Mariscal MD Primary Care Provider: SERAFIN Reza History of Present Illness History of Present Illness Tim Robison is a 55 year old male CKD stage 3- b/l cr approx 1.5 mg/dl from DM- follows w/ Dr. Weinstein. also h/o DM foot OM and ulcer, htn, and hyperlipidemia. The pt was admitted on 10-29-21 w/ COVID-19, fevers, sob, weakn ess. he was started on remdesivir x 1 dose, actemra x 1 dose, steroids. Pt was anti-coagulated for fear of a DVT/ PE. Pt was started on gentle ivf. pt recently had abx prior to admission. Regarding renal fxn- cr 1.3- 1.4 in January 2021, CR 1.7- 1.8- february and jul 2021. CR on admission 3.1 and remains at 3 mg/ dl. pt is urinating Review of Systems Narrative: weak, sob, thirsty, cough, cp, foot pain. no n/v/lindo. fevers imporving. legs weak Medications/Allergies Home Medications Medication Instructions Recorded Confirmed Last Taken Type lovastatin 40 mg tablet 40 mg PO DAILY 12/22/19 10/30/21 Unknown History pregabalin 200 mg capsule (Lyrica) 200 mg PO BID 12/22/19 10/30/21 Unknown History amlodipine 10 mg tablet 10 mg PO DAILY 10/11/20 10/30/21 Unknown History atorvastatin 80 mg tablet 80 mg PO DAILY 10/11/20 10/30/21 Unknown History gabapentin 300 mg capsule 300 mg PO BID cap 10/11/20 10/30/21 Unknown History insulin detemir U-100 100 unit/mL 48 unit SUBCUT BID ml 10/11/20 10/30/21 Unknown History (3 mL) subcutaneous pen (Levemir FlexTouch U-100 Insulin) insulin lispro 100 unit/mL 5 unit SUBCUT TID 10/11/20 10/30/21 Unknown History subcutaneous pen (Humalog KwikPen (U-100) Insulin) omeprazole 40 mg capsule,delayed 40 mg PO DAILY 10/11/20 10/30/21 Unknown History release olmesartan 20 mg tablet 20 mg PO DAILY 05/03/21 10/30/21 Unknown History aspirin 81 mg chewable tablet 81 mg PO DAILY 10/30/21 10/30/21 Unknown History cyanocobalamin (vitamin B-12) 1,000 mcg IM Q30D 10/30/21 10/30/21 Unknown History 1,000 mcg/mL injection solution metoprolol tartrate 100 mg tablet 100 mg PO BID 10/30/21 10/30/21 Unknown History Allergies Allergy/AdvReac Type Severity Reaction Status Date / Time No Known Allergies Allergy Verified 10/30/21 09:51 Current Medications Generic Name Dose Route Start Last Admin Trade Name Freq PRN Reason Stop Dose Admin Albuterol/Ipratropium 3 ml 10/30/21 08:00 10/31/21 07:51 Ipratropium-Albuterol 3 Ml Neb INHALATION 3 ml QID.RESPIRATORY KELSEY Administration Amlodipine Besylate 10 mg 10/30/21 09:00 10/31/21 08:24 Amlodipine 10 Mg Tablet PO 10 mg DAILY KELSEY Administration Apixaban 5 mg 10/30/21 21:00 10/31/21 08:28 Apixaban 5 Mg Tablet PO 5 mg BID@0900,2100 KELSEY Administration Ascorbic Acid 500 mg 10/30/21 09:00 10/31/21 08:24 Ascorbic Acid 500 Mg Tablet PO 500 mg BID KELSEY Administration Aspirin 81 mg 10/30/21 09:00 10/31/21 08:27 Aspirin 81 Mg Ec Tablet PO 81 mg DAILY KELSEY Administration Azithromycin 500 mg 10/31/21 09:00 10/31/21 08:27 Azithromycin 250 Mg Tablet PO 500 mg DAILY KELSEY Administration Protocol Budesonide 0.5 mg 10/30/21 08:00 10/31/21 07:51 Budesonide 0.5 Mg/2 Ml Neb INHALATION 0.5 mg BID.RESPIRATORY KELSEY Administration Dexamethasone 6 mg 10/30/21 21:00 10/30/21 20:38 Dexamethasone 10 Mg/Ml Inj IVP 6 mg Q24H KELSEY Administration Docusate Sodium 100 mg 10/30/21 09:00 10/31/21 08:25 Docusate Sodium 100 Mg Capsule PO 100 mg BID KELSEY Administration Gabapentin 300 mg 10/30/21 09:00 10/31/21 08:24 Gabapentin 300 Mg Capsule PO 300 mg BID KELSEY Administration Ceftriaxone Sodium 1,000 mg/ 50 mls @ 100 mls/hr 10/30/21 01:30 10/31/21 05:02 Sodium Chloride IV Infused Q24H [facility] Infusion Protocol Insulin Detemir 50 unit 10/30/21 18:30 10/31/21 08:28 Insulin Detemir 100 Units/1 Ml SUBCUT 50 unit BID KELSEY Administration Metoprolol Succinate 100 mg 10/30/21 09:00 10/31/21 08:24 Metoprolol Succinate Er (24 Hr) 100 Mg Tablet PO 100 mg BID KELSEY Administration Pantoprazole Sodium 40 mg 10/30/21 09:00 10/31/21 08:[address] 40 Mg Tablet PO 40 mg DAILY KELSEY Administration Tamsulosin HCl 0.4 mg 10/31/21 09:00 10/31/21 08:24 Tamsulosin 0.4 Mg Capsule PO 0.4 mg DAILY KELSEY Administration Vitamin D 1,000 unit 10/30/21 09:00 10/31/21 08:24 Cholecalciferol (Vitamin D3) 1,000 Unit Tablet PO 1,000 unit DAILY KELSEY Administration Zinc Gluconate 50 mg 10/30/21 09:00 10/31/21 08:24 Zinc Gluconate 50 Mg Tablet PO 50 mg DAILY KELSEY Administration PFSH Acute PFSH: Medical History Diabetes Neuropathy Onychomycosis of nail of digit of hand Surgical History H/O circumcision H/O colonoscopy 7 yrs ago Status post debridement of ulcer of heel Family History Brother Cancer Sister Lung disease Mother Heart failure Father Chronic kidney failure Denies family history of Anesthesia complication Bleeding disorder Social History Second hand smoke exposure: No Alcohol intake: never Adopted: No Lives independently: Yes Marital status: Single Current occupational status: disabled History of recent travel: No Vitals/I&O/Wt Last Vital Signs Temp 97.5 F L 10/31/21 08:00 Pulse 79 02/01/22 08:01 Resp 16 10/31/21 08:01 BP 144/80 10/31/21 08:00 Pulse Ox 93 10/31/21 08:01 10/30/21 10/31/21 10/31/21 22:59 06:59 14:59 Intake Total 360 / 560 90 / 650 230 / 230 Output Total 300 / 550 1000 / 1550 Balance 60 / 10 -910 / -900 230 / 230 Weight last 48 hrs Weight 136.078 kg Weight 136.078 kg Physical Exam Narrative: EXAM NARRATIVE: in bed, nc 02, mild sob vss heent- nc/at neck supple lungs ronchi b/l heart reg, no rub abd soft, nt, nd, + bs ext b/l leg edema 1+ Urinary Catheter Management: Reyes: Cath Placed During This Visit: yes Reason for Continuing Indwelling Catheter: Acute Urinary Retention or Obstruction Urinary Catheter Date of Insertion: 10/30/21 Urinary Catheter Time of Insertion: 12:00 Data : 10/31/21 05:28 10/31/21 07:30 Micro: Microbiology 10/29/21 12:03 Legionella Urinary Antigen - Final Urine,Clean Catch Bacterial Antigens - Final 10/29/21 23:12 Blood Culture - Preliminary Blood NEGATIVE TO DATE 10/29/21 23:15 Blood Culture - Preliminary Blood NEGATIVE TO DATE A&P Assessment and plan (1) Acute kidney injury superimposed on chronic kidney disease: 55 yr old man 1. CKD stage 3- likely from DM- has DM for 20 yrs and known neuropathy 2. ARJUN- likely from COVID-19 nephropathy -concern for infection related or ATN ua noted -renal us- normal, no hydronephrosis -monitor uop and chemistries -as covid improves- hopefully cr will improve -low k diet 3. acid/ base status- improved- pH 7.36- met acidosis and mild resp alkalosis -met acidosis from ARJUN -normal lactate 4. hyponatremia- check ur lytes -check tsh -free water restrict -likely from ARJUN 5. elevated bnp- can use lasix if clinically in volume overload/ CHF 6. bp okay- limit norvasc- seen and examined w/ RN- telehealth visit time spent 55 min Status: Acute Plan as above Consult Attestations Medical Necessity Statement: covid and arjun Time Spent in Patient Care: Greater than 35 minutes (>than 50% of time spent in counselling and/or direct pt care on unit) . Coding Level of Care Code Acute Warehouse Lead for Chg Fwd Diagnoses Acute kidney injury superimposed on chronic kidney disease N17.9; N18.9
[2021-10-31 14:33] LABS: Uric Acid 9.9 mg/dL (3.4-7.0)
[2021-10-31 15:09] LABS: Hepatitis C Virus Antibody Non-Reactive (Nonreactive)
[2021-10-31 15:12] LABS: Thyroid Stimulating Hormone 0.44 uIU/mL (0.27-4.20)
--- NOTE | 2021-10-31 16:11 | P.PN_ITS ---
Subjective Subjective: Interval history: Patient was seen this morning, denies any fevers, chills, nausea, vomiting, currently on 3 L Vitals/I&O/Wt Last Vital Signs Temp 98.6 F 10/31/21 12:00 Pulse 78 10/31/21 14:39 Resp 16 10/31/21 14:39 BP 122/89 10/31/21 12:00 Pulse Ox 95 10/31/21 14:39 10/31/21 10/31/21 10/31/21 06:59 14:59 22:59 Intake Total 90 / 650 480 / 480 Output Total 1000 / 1550 Balance -910 / -900 480 / 480 Weight last 48 hrs Weight 136.078 kg Weight 136.078 kg Physical Exam Const: COMMON NORMALS: no acute distress and patient oriented x3 Resp: COMMON NORMALS: normal respiratory effort, No retractions, No use of accessory muscles and clear to auscultation bilaterally AUSCULTATION: clear to auscultation bilaterally Cardio: COMMON NORMALS: regular rate, regular rhythm, S1 normal heart sound present and S2 normal heart sound present RATE: regular rate RHYTHM: re gular rhythm HEART SOUNDS: S1 normal heart sound present and S2 normal heart sound present GI: COMMON NORMALS: Normal to inspection, nondistended, normoactive bowel sounds present, Soft to palpation, non-tender and No hepatosplenomegaly present PALPATION: Yes Soft to palpation and Yes No hepatosplenomegaly present Extremity: COMMON NORMALS: no pedal edema Neuro: COMMON NORMALS: patient oriented x3 Psych: COMMON NORMALS: mental status grossly normal Urinary Catheter Management: Reyes: Cath Placed During This Visit: yes Reason for Continuing Indwelling Catheter: Acute Urinary Retention or Obstruction Urinary Catheter Date of Insertion: 10/30/21 Urinary Catheter Time of Insertion: 12:00 Data : 10/31/21 05:28 10/31/21 07:30 Micro: Microbiology 10/30/21 12:03 MRSA Culture - Final Nose 10/29/21 12:03 Legionella Urinary Antigen - Final Urine,Clean Catch Bacterial Antigens - Final 10/29/21 23:12 Blood Culture - Preliminary Blood NEGATIVE TO DATE 10/29/21 23:15 Blood Culture - Preliminary Blood NEGATIVE TO DATE A&P Assessment and plan (1) 2019 novel coronavirus-infected pneumonia (NCIP): Status: Acute (2) Acute hypoxemic respiratory failure: Status: Acute (3) Acute kidney injury superimposed on chronic kidney disease: Status: Acute (4) Non-healing ulcer: Status: Acute Qualifiers: Non-pressure ulcer stage: with necrosis of bone Qualified Code(s): L98.494 - 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 Oxygen supplementation keeping saturation over 88%. Dexamethasone 6 mg daily. Received 200 mg of remdesivir on admission. Holding off since then because of ARJUN on CKD. Given high inflammatory markers given 1 dose of Actemra. Pro-Rigo negative. Low suspicion of bacterial pneumonia for now. No leukocytosis. Check sputum culture, procalcitonin, urine Legionella, bacterial antigen, blood culture. Low suspicion of For now continue Rocephin and azithromycin Vitamin C, zinc. DuoNebs every 6 hour, budesonide twice daily. Pulmonary toilet with incentive spirometry flutter valve. We will monitor inflammatory markers including CRP and D-dimer every 48 hours. D-dimer elevated. Cannot go to do CTA given ARJUN on CKD. Unfortunately VQ scan cannot be performed due to COVID-19. Venous ultrasound negative for DVT. Continue Eliquis 5 mg twice a day. Will monitor for anemia or blood loss. Type 2 diabetes mellitus A1c 9.6 Blood sugars greater than 300 likely secondary Decadron Increase Levemir to 60 units twice daily High-dose sliding scale NSTEMI: No active chest pain. Continue aspirin 81 mg, statin -Cardiac echocardiogram 1. This is a technically difficult study with off axis images. ?2. Normal left ventricular size, systolic function and wall ?thickness, with no regional wall motion abnormalities. Left ?ventricular ejection fraction is estimated at 65-70%.? No ?diagnostic regional wall motion normality.? Grade I diastolic ?dysfunction (abnormal relaxation filling pattern), normal to ?mildly elevated filling pressures. ?3. Normal right ventricular size and systolic function. ?4. Pulmonary artery pressure estimated at 23 mmHg. ?5. No prior similar studies to compare ARJUN on CKD, Renal ultrasound 1.? No hydronephrosis in either kidney. 2.? Significant Postvoid bladder residual 138 cc 3.? 2 right ureteral jets visualized. No definite left ureteral jet. Urine creatinine, urine lites, urine eosinophils History of chronic osteomyelitis: Saw ID as an outpatient. Has already finished multiple antibiotic course for the same. As per the notes discussion was that patient is already finished multiple antibiotic courses and plan is to continue wound care as before. Hyponatremia, monitor Full code. Carb consistent cardiac renal nondialysis diet. Eliquis will help with DVT prophylaxis. Protonix for PUD prophylaxis Attestations Medical Necessity Statement*: Patient requires hospitalization for ARJUN, COVID- 19, hyperglycemia Coding Level of Care Code Acute Market Development Manager for Chg Fwd Diagnoses 2019 novel coronavirus-infected pneumonia (NCIP) U07.1; J12.82 Acute hypoxemic respiratory failure J96.01 Acute kidney injury superimposed on chronic kidney disease N17.9; N18.9 Non-healing ulcer L98.494 Non-pressure ulcer stage: with necrosis of bone 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 E11.22 Uncontrolled type 2 diabetes with neuropathy E11.40; E11.65 Hyperlipidemia E78.5 Diabetes E11.9 NSTEMI (non-ST elevated myocardial infarction) I21.4 Hyponatremia E87.1
[2021-10-31 17:28] LABS: Glucose Point of Care 238 mg/dL (70-110)
[2021-10-31 19:16] LABS: Urine Random Sodium 50 mmol/L
[2021-10-31 19:16] LABS: Potassium, Radom Urine 24 mmol/L; Urine Creatinine 82 mg/dL (39-259); Urine Random Chloride 36 mmol/L; Urine Random Sodium 48 mmol/L
[2021-10-31] MEDS: dexamethasone 10 mg/mL INJ 6 MG IVP (20:59)
[2021-10-31] MEDS: atorvastatin 40 mg Tablet PO (20:59)
[2021-10-31 21:25] LABS: Glucose Point of Care 144 mg/dL (70-110)
[2021-10-31 21:28] LABS: Eosinophil Urine No Eosinophils Seen; Urine Eosinophil Count 0 (0-0)
[2021-11-01] VITALS (14 sets, daily range): BP systolic 109–155; BP diastolic 68–81; PULSE 70–82; RESP 16–20; TEMP 36.3–36.7; O2SAT 90–95
[2021-11-01] MEDS: cefTRIAXone 1,000 MG in sodium chloride 0.9% (plus) 50 ML 100 MG IV (02:45)
[2021-11-01 06:08] LABS: Basophils % 0.1 %; Hematocrit 43.2 % (42.0-52.0); Hemoglobin 13.7 g/dL (11.7-16.6); Lymphocytes # 0.6 10^3/uL (0.8-4.8); Lymphocytes % 6.1 %; Mean Corpuscular HGB Conc 31.7 g/dL (30.0-36.0); Mean Corpuscular Hemoglobin 27.1 pg (28.0-34.0); Mean Corpuscular Volume 85.4 fl (80-94); Mean Platelet Volume 12.3 fL (7.4-10.4); Monocytes # 0.3 10^3/uL (0.2-0.9); Monocytes % 3.1 %; Neutrophils # 8.37 10^3/uL (1.8-7.7); Neutrophils % 88.5 %; Nucleated Red Blood Cells % 0 %; Platelet Count 320 10^3/cmm (130-400); Red Blood Count 5.06 10^6/uL (4.1-5.3); Red Cell Distribution Width 15.7 % (12.1-15.1); White Blood Count 9.5 10^3/uL (4.0-10.0)
[2021-11-01 06:21] LABS: INR 1.05 (0.8-1.2)
[2021-11-01 06:27] LABS: Lactate (Lactic Acid level) 0.9 mmol/L (0.5-2.2)
[2021-11-01 06:43] LABS: Glucose Point of Care 139 mg/dL (70-110)
[2021-11-01 06:47] LABS: Calcium 8.4 mg/dL (8.5-10.5)
[2021-11-01 06:54] LABS: Parathyroid Hormone 105.1 pg/mL (15-65)
[2021-11-01 06:55] LABS: NT Pro B Type Natriuretic Pept 2125 pg/mL (0-125); Procalcitonin 0.21 ng/mL (0-0.5)
[2021-11-01 07:08] LABS: Alanine Aminotransferase 19 U/L (0-41); Alkaline Phosphatase 160 IU/L (40-130); Aspartate Amino Transferase 53 U/L (0-40); Blood Urea Nitrogen 56 mg/dL (6-20); C Reactive Protein 73.7 mg/L (0.0-4.9); Calcium 8.3 mg/dL (8.5-10.5); Carbon Dioxide 16 mmol/L (22-29); Creatine Phosphokinase 54 U/L (39-308); Globulin 4.2 g/dL (1.3-4.6); Glomerular Filtration Rate 25.9 mL/min (90-130); Glucose 143 mg/dL (65-115); Magnesium 2.3 mg/dL (1.7-2.3); Phosphorus 3.2 mg/dL (2.5-4.5); Total Bilirubin 0.2 mg/dL (0.15-1.2); Total Protein 6.2 g/dL (6.6-8.7)
[2021-11-01 07:38] LABS: Ferritin 1648 ng/mL (30-400)
[2021-11-01 07:40] LABS: Potassium 4.6 mmol/L (3.5-5.1)
[2021-11-01] MEDS: cholecalciferol (vitamin D3) 1,000 unit Tablet 1000 UNIT PO (08:33)
[2021-11-01] MEDS: metoprolol succinate ER (24 HR) 100 mg Tablet PO ×2 (08:33→17:43)
[2021-11-01] MEDS: ascorbic acid 500 mg Tablet PO ×2 (08:33→17:43)
[2021-11-01] MEDS: azithromycin 250 mg Tablet 500 MG PO (08:33)
[2021-11-01] MEDS: pantoprazole DR 40 mg Tablet PO (08:33)
[2021-11-01] MEDS: tamsulosin 0.4 mg Capsule PO (08:33)
[2021-11-01] MEDS: aspirin 81 mg EC Tablet PO (08:33)
[2021-11-01] MEDS: gabapentin 300 mg Capsule PO ×2 (08:33→17:43)
[2021-11-01] MEDS: docusate sodium 100 mg Capsule PO ×2 (08:33→17:43)
[2021-11-01] MEDS: zinc gluconate 50 mg Tablet PO (08:33)
[2021-11-01] MEDS: amlodipine 10 mg Tablet PO (08:33)
[2021-11-01] MEDS: apixaban 5 mg Tablet PO ×2 (08:33→20:16)
[2021-11-01 09:05] LABS: 25 Hydroxy Vitamin D 10 ng/mL (30-100)
[2021-11-01 09:22] LABS: Anion Gap 19.6 (5-19); Chloride 106 mmol/L (98-107); Osmolality Calculated 302 mOsm/kg (285-295); Sodium 137 mmol/L (136-145)
[2021-11-01] MEDS: ipratropium-albuterol 3 mL Neb INHALATION ×4 (09:33→20:07)
[2021-11-01] MEDS: budesonide 0.5 mg/2 mL Neb INHALATION ×2 (09:33→20:07)
--- NOTE | 2021-11-01 09:46 | P.PN_ITS ---
Subjective Subjective: Interval history: urinating, has nc02, feels better. no n/v/f/c/+ fischer Medications: Reviewed: Yes Medication Review Details: Current Medications Acetaminophen (Acetaminophen 325 Mg Tablet) 650 mg PO Q6H PRN PRN Reason: Mild/Mod Pain Or Temp >/= 101 Albuterol/Ipratropium (Ipratropium-Albuterol 3 Ml Neb) 3 ml INHALATION QID.RESPIRATORY KELSEY Last Admin: 11/01/21 09:33 Dose: 3 ml Documented by: Amlodipine Besylate (Amlodipine 10 Mg Tablet) 10 mg PO DAILY KELSEY Last Admin: 11/01/21 08:33 Dose: 10 mg Documented by: Apixaban (Apixaban 5 Mg Tablet) 5 mg PO BID@0900,2100 KELSEY Last Admin: 11/01/21 08:33 Dose: 5 mg Documented by: Ascorbic Acid (Ascorbic Acid 500 Mg Tablet) 500 mg PO BID KELSEY Last Admin: 11/01/21 08:33 Dose: 500 mg Documented by: Aspirin (Aspirin 81 Mg Ec Tablet) 81 mg PO DAILY KELSEY Last Admin: 11/01/21 08:33 Dose: 81 mg Documented by: Atorvastatin Calcium (Atorvastatin 40 Mg Tablet) 40 mg PO BEDTIME KELSEY Last Admin: 10/31/21 20:59 Dose: 40 mg Documented by: Azithromycin (Azithromycin 250 Mg Tablet) 500 mg PO DAILY KELSEY; Protocol Last Admin: 11/01/21 08:33 Dose: 500 mg Documented by: Budesonide (Budesonide 0.5 Mg/2 Ml Neb) 0.5 mg INHALATION BID.RESPIRATORY KELSEY Last Admin: 11/01/21 09:33 Dose: 0.5 mg Documented by: Dexamethasone (Dexamethasone 10 Mg/Ml Inj) 6 mg IVP Q24H KELSEY Last Admin: 10/31/21 20:59 Dose: 6 mg Documented by: Dextrose (Dextrose 50% Syringe 50 Ml) 25 ml IVP ONCE PRN; Protocol PRN Reason: hypoglycemia protocol Dextrose (Dextrose 50% Syringe 50 Ml) 50 ml IVP PRN PRN; Protocol PRN Reason: hypoglycemia protocol Dextrose (Dextrose 50% Syringe 50 Ml) 25 ml IVP ONCE PRN; Protocol PRN Reason: hypoglycemia protocol Dextrose (Dextrose 50% Syringe 50 Ml) 50 ml IVP PRN PRN; Protocol PRN Reason: hypoglycemia protocol Docusate Sodium (Docusate Sodium 100 Mg Capsule) 100 mg PO BID [facility] Last Admin: 11/01/21 08:33 Dose: 100 mg Documented by: Gabapentin (Gabapentin 300 Mg Capsule) 300 mg PO BID [facility] Last Admin: 11/01/21 08:33 Dose: 300 mg Documented by: Glucagon (Glucagon 1 Mg/Ml Inj 1 Ml) 1 mg IM ONCE PRN; Protocol PRN Reason: Adult Acute Hypoglycemia Prot. Glucagon (Glucagon 1 Mg/Ml Inj 1 Ml) 1 mg IM ONCE PRN; Protocol PRN Reason: Adult Acute Hypoglycemia Prot. Ceftriaxone Sodium 1,000 mg/ (Sodium Chloride) 50 mls @ 100 mls/hr IV Q24H [facility]; Protocol Last Infusion: 11/01/21 04:04 Dose: Infused Documented by: Dextrose (D5w) 500 mls @ 100 mls/hr IV ONCE PRN; Protocol PRN Reason: Adult Acute Hypoglycemia Prot Dextrose (D5w) 500 mls @ 100 mls/hr IV ONCE PRN; Protocol PRN Reason: Adult Acute Hypoglycemia Prot Insulin Detemir (Insulin Detemir 100 Units/1 Ml) 55 unit SUBCUT BID [facility] Last Admin: 11/01/21 08:33 Dose: 55 unit Documented by: Insulin Human Lispro (Insulin Lispro 100 Unit/1 Ml) 0 unit SUBCUT TIDWM [facility]; Protocol Last Admin: 11/01/21 06:59 Dose: Not Given Documented by: Lactulose (Lactulose Oral Liq 20 Gm/30 Ml Udc) 10 gm PO DAILY PRN; Protocol PRN Reason: Constipation (see protocol) Metoprolol Succinate (Metoprolol Succinate Er (24 Hr) 100 Mg Tablet) 100 mg PO BID [facility] Last Admin: 11/01/21 08:33 Dose: 100 mg Documented by: Naloxone HCl (Naloxone 0.4 Mg/Ml Sdv) 0.1 mg IVP Q2M PRN PRN Reason: OPIATERV Ondansetron HCl (Ondansetron 2 Mg/Ml Sdv 2 Ml) 4 mg IVP Q6H PRN PRN Reason: NAUSEA AND VOMITING Pantoprazole Sodium (Pantoprazole Dr 40 Mg Tablet) 40 mg PO DAILY [facility] Last Admin: 11/01/21 08:33 Dose: 40 mg Documented by: Tamsulosin HCl (Tamsulosin 0.4 Mg Capsule) 0.4 mg PO DAILY [facility] Last Admin: 11/01/21 08:33 Dose: 0.4 mg Documented by: Vitamin D (Cholecalciferol (Vitamin D3) 1,000 Unit Tablet) 1,000 unit PO DAILY [facility] Last Admin: 11/01/21 08:33 Dose: 1,000 unit Documented by: Zinc Gluconate (Zinc Gluconate 50 Mg Tablet) 50 mg PO DAILY [facility] Last Admin: 11/01/21 08:33 Dose: 50 mg Documented by: Vitals/I&O/Wt Last Vital Signs Temp 97.7 F 11/01/21 08:30 Pulse 75 11/01/21 09:37 Resp 18 11/01/21 09:33 BP 155/81 11/01/21 08:30 Pulse Ox 93 11/01/21 09:33 10/31/21 11/01/21 11/01/21 22:59 06:59 14:59 Intake Total 1000 / 1480 50 / 1530 120 / 120 Output Total 700 / 700 300 / 1000 Balance 300 / 780 -250 / 530 120 / 120 Physical Exam Narrative: EXAM NARRATIVE: in bed, nc 02, comfortable vss heent- nc/at neck supple lungs diminished b/l heart reg, no rub abd soft, nt, nd, + bs + fischer ext b/l leg edema 1+ Urinary Catheter Management: Fischer: Cath Placed During This Visit: yes Reason for Continuing Indwelling Catheter: Other Urinary Catheter Date of Insertion: 10/30/21 Urinary Catheter Time of Insertion: 12:00 Data : 11/01/21 05:29 11/01/21 05:29 Micro: Microbiology 10/30/21 12:03 MRSA Culture - Final Nose 10/29/21 12:03 Legionella Urinary Antigen - Final Urine,Clean Catch Bacterial Antigens - Final A&P Assessment and plan (1) Acute kidney injury superimposed on chronic kidney disease: 55 yr old man recent OM s/p abx. 1. CKD stage 3- likely from DM- has DM for 20 yrs and known neuropathy b/l cr 1.5 -pth 105, vit d 10- replete vit d 2. ARJUN- likely from COVID-19 nephropathy -concern for infection related or ATN ua noted -renal us- normal, no hydronephrosis -monitor uop and chemistries -as covid improves- hopefully cr will improve -cr and uop improving 3. acid/ base status- improved- pH 7.36- met acidosis and mild resp alkalosis -met acidosis from ARJUN -normal lactate -no change in buicarb 4. hyponatremia- improving 5. elevated bnp- can use lasix if clinically in volume overload/ CHF 6. bp okay--per medicine -hold jason-i/ aRB w/ ARJUN 7. DM- hgb a1c of 9.6 - as outpt would add SGLT2-i seen and examined w/ RN- telehealth visit time spent 30 min Status: Acute Plan as above Attestations Medical Necessity Statement*: arjun, covid, dm, Time Spent in Patient Care: 16 - 35 minutes (>than 50% of time spent in counselling and/or direct pt care on unit) . Coding Level of Care Code Acute Automation Technician for Blaise Beckett Diagnoses Acute kidney injury superimposed on chronic kidney disease N17.9; N18.9
[2021-11-01 10:20] LABS: Cortisol Random 3.65 ug/dL (2.47-19.5)
[2021-11-01] MEDS: ergocalciferol (vitamin D2) 50,000 Unit Capsule 50000 UNIT PO (11:20)
[2021-11-01] MEDS: FUROsemide 10 mg/mL SDV 4mL 40 MG IVP (11:20)
--- NOTE | 2021-11-01 11:20 | PC.SOCIAL ---
IMM Update pg 2 of IMM updated and reviewed w/ patient. Copy signed and placed in chart. Copy provided.
[2021-11-01 11:25] LABS: Glucose Point of Care 228 mg/dL (70-110)
[2021-11-01] MEDS: insulin lispro 100 unit/1 mL SUBCUT ×2 (12:44→17:43)
--- NOTE | 2021-11-01 17:17 | P.PN_ITS ---
Subjective Subjective: Interval history: Patient was seen this morning, currently on 3 L, he he feels a bit better, but does report generalized weakness, shortness of breath with exertion Vitals/I&O/Wt Last Vital Signs Temp 97.6 F 11/01/21 15:54 Pulse 81 11/01/21 16:22 Resp 16 11/01/21 16:18 BP 112/69 11/01/21 15:54 Pulse Ox 93 11/01/21 16:18 11/01/21 11/01/21 11/01/21 06:59 14:59 22:59 Intake Total 50 / 1530 360 / 360 Output Total 300 / 1000 850 / 850 Balance -250 / 530 360 / 360 -850 / -490 Physical Exam Const: COMMON NORMALS: no acute distress and patient oriented x3 Resp: COMMON NORMALS: normal respiratory effort, No retractions, No use of accessory muscles and clear to auscultation bilaterally AUSCULTATION: clear to auscultation bilaterally Cardio: COMMON NORMALS: regular rate, regular rhythm, S1 normal heart sound present and S2 normal heart sound present RATE: regular rate RHYTHM: regular rhythm HEART SOUNDS: S1 normal heart sound present and S2 normal heart sound present GI: COMMON NORMALS: Normal to inspection, nondistended, normoactive bowel so unds present, Soft to palpation and non-tender PALPATION: Yes Soft to pal pation Extremity: COMMON NORMALS: no pedal edema Neuro: COMMON NORMALS: patient oriented x3 Psych: COMMON NORMALS: mental status grossly normal Urinary Catheter Management: Reyes: Cath Placed During This Visit: yes Reason for Continuing Indwelling Catheter: Other Urinary Catheter Date of Insertion: 10/30/21 Urinary Catheter Time of Insertion: 12:00 Data : 11/01/21 05:29 11/01/21 05:29 Micro: Microbiology 10/30/21 12:03 MRSA Culture - Final Nose A&P Assessment and plan (1) Acute kidney injury superimposed on chronic kidney disease: Status: Acute Plan Assessment and plan (1) 2019 novel coronavirus-infected pneumonia (NCIP): (2) Acute hypoxemic respiratory failure: (3) Non-healing ulcer: (4) 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: (5) Uncontrolled type 2 diabetes with neuropathy: (6) Hyperlipidemia: (7) Diabetes: (8) NSTEMI (non-ST elevated myocardial infarction): (9) Hyponatremia: Plan Hypoxia secondary to COVID-19 pneumonia: Mild to moderate disease. Oxygen supplementation keeping saturation over 88%. Dexamethasone 6 mg daily. Received 200 mg of remdesivir on admission.? Holding off since then because of ARJUN on CKD. Given high inflammatory markers given 1 dose of Actemra. For now continue Rocephin and azithromycin Vitamin C, zinc. DuoNebs every 6 hour, budesonide twice daily. Pulmonary toilet with incentive spirometry flutter valve. We will monitor inflammatory markers including CRP and D-dimer every 48 hours. D-dimer elevated.? Cannot go to do CTA given ARJUN on CKD.? Unfortunately VQ scan cannot be performed due to COVID-19.? Venous ultrasound negative for DVT.? Continue Eliquis 5 mg twice a day.? Will monitor for anemia or blood loss. Hold off on Lasix therapy for today Type 2 diabetes mellitus A1c 9.6 Blood sugars greater than 300 likely secondary Decadron Increase Levemir to 55 units twice daily High-dose sliding scale NSTEMI: No active chest pain. Continue aspirin 81 mg, statin -Cardiac echocardiogram 1. This is a technically difficult study with off axis images. ?2. Normal left ventricular size, systolic function and wall ?thickness, with no regional wall motion abnormalities. Left ?ventricular ejection fraction is estimated at 65-70%.? No ?diagnostic regional wall motion normality.? Grade I diastolic ?dysfunction (abnormal relaxation filling pattern), normal to ?mildly elevated filling pressures. ?3. Normal right ventricular size and systolic function. ?4. Pulmonary artery pressure estimated at 23 mmHg. ?5. No prior similar studies to compare ARJUN on CKD, Renal? ultrasound 1.? No hydronephrosis in either kidney. 2.? Significant Postvoid bladder residual 138 cc 3.? 2 right ureteral jets visualized. No definite left ureteral jet. Urine creatinine, urine lites, urine eosinophils -Creatinine 2.6 History of chronic osteomyelitis: Saw ID as an outpatient.? Has already finished multiple antibiotic course for the same.? As per the notes discussion was that patient is already finished multiple antibiotic courses and plan is to continue wound care as before. Hyponatremia, monitor Full code. Carb consistent cardiac renal nondialysis diet. Eliquis will help with DVT prophylaxis. Protonix for PUD prophylaxis Attestations Medical Necessity Statement*: Patient requires hospitalization for COVID-19 pneumonia Coding Level of Care Code Acute Construction Consultant for [employer]g Fwd Diagnoses Acute kidney injury superimposed on chronic kidney disease N17.9; N18.9
[2021-11-01 17:32] LABS: Glucose Point of Care 450 mg/dL (70-110)
[2021-11-01] MEDS: dexamethasone 10 mg/mL INJ 6 MG IVP (20:16)
[2021-11-01] MEDS: atorvastatin 40 mg Tablet PO (20:16)
[2021-11-01 21:33] LABS: Glucose Point of Care 354 mg/dL (70-110)
[2021-11-02] VITALS (11 sets, daily range): BP systolic 96–124; BP diastolic 66–80; PULSE 71–87; RESP 16–24; TEMP 36.4–36.6; O2SAT 88–96
[2021-11-02] MEDS: cefTRIAXone 1,000 MG in sodium chloride 0.9% (plus) 50 ML 100 MG IV (02:20)
[2021-11-02 05:48] LABS: Basophils % 0.3 %; Hematocrit 40.4 % (42.0-52.0); Hemoglobin 12.7 g/dL (11.7-16.6); Lymphocytes # 0.6 10^3/uL (0.8-4.8); Lymphocytes % 7.2 %; Mean Corpuscular HGB Conc 31.4 g/dL (30.0-36.0); Mean Corpuscular Hemoglobin 26.7 pg (28.0-34.0); Mean Corpuscular Volume 85.1 fl (80-94); Mean Platelet Volume 12.9 fL (7.4-10.4); Monocytes # 0.3 10^3/uL (0.2-0.9); Monocytes % 3.8 %; Neutrophils # 6.85 10^3/uL (1.8-7.7); Neutrophils % 86.3 %; Nucleated Red Blood Cells % 0.3 %; Platelet Count 278 10^3/cmm (130-400); Red Blood Count 4.75 10^6/uL (4.1-5.3); Red Cell Distribution Width 15.6 % (12.1-15.1); White Blood Count 7.9 10^3/uL (4.0-10.0)
[2021-11-02 06:09] LABS: Alanine Aminotransferase 22 U/L (0-41); Albumin Level 2.2 g/dL (3.5-5.2); Alkaline Phosphatase 165 IU/L (40-130); Anion Gap 17.7 (5-19); Aspartate Amino Transferase 47 U/L (0-40); Blood Urea Nitrogen 61 mg/dL (6-20); Calcium 7.7 mg/dL (8.5-10.5); Carbon Dioxide 18 mmol/L (22-29); Chloride 104 mmol/L (98-107); Globulin 3.4 g/dL (1.3-4.6); Glomerular Filtration Rate 24.8 mL/min (90-130); Glucose 275 mg/dL (65-115); Magnesium 2.4 mg/dL (1.7-2.3); Osmolality Calculated 307 mOsm/kg (285-295); Phosphorus 3.1 mg/dL (2.5-4.5); Potassium 4.7 mmol/L (3.5-5.1); Sodium 135 mmol/L (136-145); Total Bilirubin 0.2 mg/dL (0.15-1.2); Total Protein 5.6 g/dL (6.6-8.7)
[2021-11-02 06:18] LABS: Glucose Point of Care 260 mg/dL (70-110)
[2021-11-02 06:24] LABS: Slide Review Slide Review Perform
[2021-11-02] MEDS: insulin lispro 100 unit/1 mL SUBCUT ×3 (08:29→18:31)
[2021-11-02] MEDS: aspirin 81 mg EC Tablet PO (08:31)
[2021-11-02] MEDS: metoprolol succinate ER (24 HR) 100 mg Tablet PO (08:31)
[2021-11-02] MEDS: amlodipine 10 mg Tablet PO (08:31)
[2021-11-02] MEDS: ascorbic acid 500 mg Tablet PO ×2 (08:31→18:30)
[2021-11-02] MEDS: gabapentin 300 mg Capsule PO ×2 (08:31→18:30)
[2021-11-02] MEDS: tamsulosin 0.4 mg Capsule PO (08:32)
[2021-11-02] MEDS: azithromycin 250 mg Tablet 500 MG PO (08:32)
[2021-11-02] MEDS: docusate sodium 100 mg Capsule PO ×2 (08:32→18:30)
[2021-11-02] MEDS: zinc gluconate 50 mg Tablet PO (08:32)
[2021-11-02] MEDS: pantoprazole DR 40 mg Tablet PO (08:37)
--- NOTE | 2021-11-02 08:57 | PM.PN ---
Subjective Subjective: Interval history: feels well, ants to go home. no n/v/f/c/lindo/d. still uses ca 02 Medications: Reviewed: Yes Medication Review Details: Current Medications Acetaminophen (Acetaminophen 325 Mg Tablet) 650 mg PO Q6H PRN PRN Reason: Mild/Mod Pain Or Temp >/= 101 Albuterol/Ipratropium (Ipratropium-Albuterol 3 Ml Neb) 3 ml INHALATION QID.RESPIRATORY KELSEY Last Admin: 11/01/21 20:07 Dose: 3 ml Documented by: Amlodipine Besylate (Amlodipine 10 Mg Tablet) 10 mg PO DAILY KELSEY Last Admin: 11/02/21 08:31 Dose: 10 mg Documented by: Apixaban (Apixaban 5 Mg Tablet) 5 mg PO BID@0900,2100 KELSEY Last Admin: 11/01/21 20:16 Dose: 5 mg Documented by: Ascorbic Acid (Ascorbic Acid 500 Mg Tablet) 500 mg PO BID KELSEY Last Admin: 11/02/21 08:31 Dose: 500 mg Documented by: Aspirin (Aspirin 81 Mg Ec Tablet) 81 mg PO DAILY KELSEY Last Admin: 11/02/21 08:31 Dose: 81 mg Documented by: Atorvastatin Calcium (Atorvastatin 40 Mg Tablet) 40 mg PO BEDTIME KELSEY Last Admin: 11/01/21 20:16 Dose: 40 mg Documented by: Azithromycin (Azithromycin 250 Mg Tablet) 500 mg PO DAILY KELSEY; Protocol Last Admin: 11/02/21 08:32 Dose: 500 mg Documented by: Budesonide (Budesonide 0.5 Mg/2 Ml Neb) 0.5 mg INHALATION BID.RESPIRATORY KELSEY Last Admin: 11/01/21 20:07 Dose: 0.5 mg Documented by: Dexamethasone (Dexamethasone 10 Mg/Ml Inj) 6 mg IVP Q24H KEL[facility] Last Admin: 11/01/21 20:16 Dose: 6 mg Documented by: Dextrose (Dextrose 50% Syringe 50 Ml) 25 ml IVP ONCE PRN; Protocol PRN Reason: hypoglycemia protocol Dextrose (Dextrose 50% Syringe 50 Ml) 50 ml IVP PRN PRN; Protocol PRN Reason: hypoglycemia protocol Dextrose (Dextrose 50% Syringe 50 Ml) 25 ml IVP ONCE PRN; Protocol PRN Reason: hypoglycemia protocol Dextrose (Dextrose 50% Syringe 50 Ml) 50 ml IVP PRN PRN; Protocol PRN Reason: hypoglycemia protocol Docusate Sodium (Docusate Sodium 100 Mg Capsule) 100 mg PO BID [facility] Last Admin: 11/02/21 08:32 Dose: 100 mg Documented by: Ergocalciferol (Ergocalciferol (Vitamin D2) 50,000 Unit Capsule) 50,000 unit PO Q7D [facility] Last Admin: 11/01/21 11:20 Dose: 50,000 unit Documented by: Gabapentin (Gabapentin 300 Mg Capsule) 300 mg PO BID [facility] Last Admin: 11/02/21 08:31 Dose: 300 mg Documented by: Glucagon (Glucagon 1 Mg/Ml Inj 1 Ml) 1 mg IM ONCE PRN; Protocol PRN Reason: Adult Acute Hypoglycemia Prot. Glucagon (Glucagon 1 Mg/Ml Inj 1 Ml) 1 mg IM ONCE PRN; Protocol PRN Reason: Adult Acute Hypoglycemia Prot. Ceftriaxone Sodium 1,000 mg/ (Sodium Chloride) 50 mls @ 100 mls/hr IV Q24H [facility]; Protocol Last Infusion: 11/02/21 02:59 Dose: Infused Documented by: Dextrose (D5w) 500 mls @ 100 mls/hr IV ONCE PRN; Protocol PRN Reason: Adult Acute Hypoglycemia Prot Dextrose (D5w) 500 mls @ 100 mls/hr IV ONCE PRN; Protocol PRN Reason: Adult Acute Hypoglycemia Prot Insulin Detemir (Insulin Detemir 100 Units/1 Ml) 55 unit SUBCUT BID [facility] Last Admin: 11/02/21 08:31 Dose: 55 unit Documented by: Insulin Human Lispro (Insulin Lispro 100 Unit/1 Ml) 0 unit SUBCUT TIDWM [facility]; Protocol Last Admin: 11/02/21 08:29 Dose: 10 unit Documented by: Lactulose (Lactulose Oral Liq 20 Gm/30 Ml Udc) 10 gm PO DAILY PRN; Protocol PRN Reason: Constipation (see protocol) Metoprolol Succinate (Metoprolol Succinate Er (24 Hr) 100 Mg Tablet) 100 mg PO BID [facility] Last Admin: 11/02/21 08:31 Dose: 100 mg Documented by: Naloxone HCl (Naloxone 0.4 Mg/Ml Sdv) 0.1 mg IVP Q2M PRN PRN Reason: OPIATERV Ondansetron HCl (Ondansetron 2 Mg/Ml Sdv 2 Ml) 4 mg IVP Q6H PRN PRN Reason: NAUSEA AND VOMITING Pantoprazole Sodium (Pantoprazole Dr 40 Mg Tablet) 40 mg PO DAILY [facility] Last Admin: 11/02/21 08:37 Dose: 40 mg Documented by: Tamsulosin HCl (Tamsulosin 0.4 Mg Capsule) 0.4 mg PO DAILY [facility] Last Admin: 11/02/21 08:32 Dose: 0.4 mg Documented by: Zinc Gluconate (Zinc Gluconate 50 Mg Tablet) 50 mg PO DAILY [facility] Last Admin: 11/02/21 08:32 Dose: 50 mg Documented by: Vitals/I&O/Wt Last Vital Signs Temp 97.5 F L 11/02/21 07:43 Pulse 76 11/02/21 07:43 Resp 20 H 11/02/21 07:43 BP 123/77 11/02/21 07:43 Pulse Ox 92 11/02/21 07:43 11/01/21 11/02/21 11/02/21 22:59 06:59 14:59 Intake Total 90 / 450 Output Total 850 / 850 1000 / 1850 Balance -850 / -490 -910 / -1400 Physical Exam Narrative: EXAM NARRATIVE: in bed, nc 02, comfortable vss heent- nc/at neck supple lungs dull bases and crackles b/l heart reg, no rub abd soft, nt, nd, + bs + fischer ext b/l leg edema 1+ Urinary Catheter Management: Fischer: Cath Placed During This Visit: yes Reason for Continuing Indwelling Catheter: Other Urinary Catheter Date of Insertion: 10/30/21 Urinary Catheter Time of Insertion: 12:00 Data : 11/02/21 04:40 11/02/21 04:40 A&P Assessment and plan (1) Acute kidney injury superimposed on chronic kidney disease: 55 yr old man recent/ chronic OM s/p abx. Here w/ COVID-19 on steroids, s/p remdesivir x 1 -pna- rocephin and azithromycin -ferritin 1648 from COVID-19 1. CKD stage 3- likely from DM- has DM for 20 yrs and known neuropathy b/l cr 1.5 -pth 105, vit d 10- replete vit d 2. ARJUN- likely from COVID-19 nephropathy -concern for infection related or ATN ua noted -renal us- normal, no hydronephrosis -monitor uop and chemistries -as covid improves- hopefully cr will improve -cr stable - uop non-oliguric 3. acid/ base status- improved- pH 7.36- met acidosis and mild resp alkalosis -met acidosis from ARJUN -normal lactate -serum bicarb up to 18 4. hyponatremia- improving 5. elevated bnp- can use lasix if clinically in volume overload/ CHF 6. bp okay--per medicine -hold jason-i/ aRB w/ ARJUN 7. DM- hgb a1c of 9.6 - as outpt would add SGLT2-i seen and examined w/ RN- telehealth visit time spent 30 min Status: Acute Plan as above Attestations Medical Necessity Statement*: covid-19 pna, chf, arjun Time Spent in Patient Care: 16 - 35 minutes (>than 50% of time spent in counselling and/or direct pt care on unit). Coding Level of Care Code Acute Identification Technician for Blaise Beckett Diagnoses Acute kidney injury superimposed on chronic kidney disease N17.9; N18.9
[2021-11-02] MEDS: budesonide 0.5 mg/2 mL Neb INHALATION (09:27)
[2021-11-02] MEDS: ipratropium-albuterol 3 mL Neb INHALATION ×2 (09:27→11:38)
[2021-11-02] MEDS: apixaban 5 mg Tablet PO ×2 (10:31→20:03)
[2021-11-02 11:46] LABS: Glucose Point of Care 410 mg/dL (70-110)
--- NOTE | 2021-11-02 12:44 | P.DS_ITS ---
Discharge Providers Date of Admission: 10/29/21 22:07 Date of Discharge: November 02, 2021 Attending Provider at Admission: Luciano Mariscal MD Attending Provider at Discharge: Luciano Mariscal MD Primary Care Provider: SERAFIN Reza Diagnoses at Discharge Discharge Diagnosis (1) Acute kidney injury superimposed on chronic kidney disease: Status: Acute Reason for Visit Reason for Visit: COVID + Hospital Course Hospital Course This is a 55-year-old male with a past medical history of type 2 diabetes, chronic kidney disease, who presents to [facility] due to shortness of breath Patient was admitted to [facility] for shortness of breath secondary to COVID-19 pneumonia, received Decadron, did not qualify for remdesivir given his elevated kidney function, received Actemra, broad-spectrum metabolic therapy clinically monitored, he clinically proved, discharged on 3 L nasal cannula, doxycycline antibiotic coverage, albuterol, Advair, with close follow with primary care provider as outpatient. Patient was advised to continue to self isolate for at least 14 days, facemask, hand wash, discussed with primary care provider Covid 19 vaccination For his hyper coagulability prophylaxis, his D-dimer was elevated, given his kidney function a CT angiogram could not be performed, and Nunda at a a VQ scan be performed given his Covid 19 status, venous ultrasound negative for DVT, we have discharged him on Eliquis 5 mg twice a day for at least 3 months, monitor for anemia through primary care, if you have bloody or black stools go to the emergency room immediately Patient had elevated troponins during his hospitalization no active chest pain, discharged on aspirin, statin, Eliquis as above. His echocardiogram showed no gross wall motion abnormalities, EF 65 to 70%, likely elevated troponins related to Covid 19 and acute respiratory failure. Patient should follow up with cardiology in 1 month for decision on pursuing stress testing. Patient had ARJUN on CKD during his hospitalization, likely secondary Covid 19, avoid nephrotoxic agents as outpatient, follow-up primary care provider with recheck kidney function in 1 week. Patient had elevated blood sugar secondary to Decadron use during his hospitalization, discharged on Levemir 55 units twice a day, and a moderate dose sliding scale. Physical Exam Const: COMMON NORMALS: no acute distress and patient oriented x3 Resp: COMMON NORMALS: normal respiratory effort, No retractions, No use of accessory muscles and clear to auscultation bilaterally AUSCULTATION: clear to auscultation bilaterally Cardio: COMMON NORMALS: regular rate, regular rhythm, S1 normal heart sound present and S2 normal heart sound present RATE: regular rate RHYTHM: regular rhythm HEART SOUNDS: S1 normal heart sound present and S2 normal heart sound present GI: COMMON NORMALS: Normal to inspection, nondistended, normoactive bowel sounds present, Soft to palpation, non-tender, No hepatosplenomegaly present, no masses and no bruits PALPATION: Yes Soft to palpation and Yes No hepatosplen omegaly present Extremity: COMMON NORMALS: no pedal edema Neuro: COMMON NORMALS: patient oriented x3 Psych: COMMON NORMALS: mental status grossly normal Urinary Catheter Management: Reyes: Cath Placed During This Visit: yes Reason for Continuing Indwelling Catheter: Other Urinary Catheter Date of Insertion: 10/30/21 Urinary Catheter Time of Insertion: 12:00 Discharge Data Studies Completed and Pending Completed Studies During Hospitalization Category Date Time Status CT chest wo con [id number] Urgent Cat Scan 10/30/21 10:25 Completed XR chest 1V portable [id number] Urgent Exams 10/29/21 20:33 [place] [id number] Routine Ultrasound 10/30/21 00:55 Completed CV. echo complete* [id number] Routine Ultrasound 10/30/21 00:55 Completed US renal BI* [id number] Routine Ultrasound 10/30/21 00:55 Completed Pending at discharge Category Date Time Status Anti-Neutrophil Cytoplasmic AB Routine Lab 10/31/21 13:55 Received Blood Culture Stat Lab 10/29/21 23:12 Results Complete Blood Count w/Auto AM LABS Lab 11/03/21 04:00 Ordered Comprehensive Metabolic Panel AM LABS Lab 11/03/21 04:00 Ordered Magnesium AM LABS Lab 11/03/21 04:00 Ordered Phosphorus AM LABS Lab 11/03/21 04:00 Ordered Sputum Culture and Gram Stain Stat Lab 10/29/21 22:42 Uncollected Vitamin D 1,25 Dihydroxy Routine Lab 10/31/21 13:55 Received Radiology Impressions Chest X-Ray 10/29/21 20:33 IMPRESSION: Multifocal bilateral airspace and ground-glass opacities are noted in the lungs concerning for pneumonic infiltrates including COVID-19 pneumonia. Renal Ultrasound 10/30/21 00:55 IMPRESSION: 1. No hydronephrosis in either kidney. 2. Significant Postvoid bladder residual 138 cc 3. 2 right ureteral jets visualized. No definite left ureteral jet. Chest CT 10/30/21 10:25 IMPRESSION: 1. Diffuse hazy bilateral groundglass infiltrates throughout both lungs compatible with Covid 19 pneumonia. 2. No focal consolidation or pleural fluid. 3. No mediastinal or hilar lymphadenopathy. 4. No other acute findings. Laboratory Results WBC 7.9 10^3/uL (4.0-10.0) 11/02/21 04:40 RBC 4.75 10^6/uL (4.1-5.3) 11/02/21 04:40 Hgb 12.7 g/dL (11.7-16.6) 11/02/21 04:40 Hct 40.4 % (42.0-52.0) L 11/02/21 04:40 MCV 85.1 fl (80-94) 11/02/21 04:40 MCH 26.7 pg (28.0-34.0) L 11/02/21 04:40 MCHC 31.4 g/dL (30.0-36.0) 11/02/21 04:40 RDW 15.6 % (12.1-15.1) H 11/02/21 04:40 Plt Count 278 10^3/cmm (130-400) 11/02/21 04:40 MPV 12.9 fL (7.4-10.4) H 11/02/21 04:40 Neut % (Auto) 86.3 % 11/02/21 04:40 Lymph % (Auto) 7.2 % 11/02/21 04:40 [place] % (Auto) 3.8 % 11/02/21 04:40 Eos % (Auto) 0.0 % 11/02/21 04:40 Baso % (Auto) 0.3 % 11/02/21 04:40 Neut # (Auto) 6.85 10^3/uL (1.8-7.7) 11/02/21 04:40 Lymph # (Auto) 0.6 10^3/uL (0.8-4.8) L 11/02/21 04:40 [place] # (Auto) 0.3 10^3/uL (0.2-0.9) 11/02/21 04:40 Eos # (Auto) 0.0 10^3/uL (0.0-0.8) 11/02/21 04:40 Baso # (Auto) 0.0 10^3/uL (0.0-0.1) 11/02/21 04:40 Nucleated RBC % (auto) 0.3 % 11/02/21 04:40 Nucleated RBCs # 0.0 /100WBC 11/02/21 04:40 PT 14.00 SECONDS (12.1-14.9) 11/01/21 05:29 INR 1.05 (0.8-1.2) 11/01/21 05:29 APTT 41.2 SECONDS (23.9-36.7) H 10/29/21 20:00 Fibrinogen 637 mg/dL (174-498) H 10/29/21 20:00 D-Dimer 1.84 ug/mIFEU (0-0.59) H 10/31/21 06:35 Specimen Type Arterial 10/31/21 05:07 Sample Site Radial, left 10/31/21 05:07 ABG pH 7.36 (7.35-7.45) 10/31/21 05:07 ABG pCO2 36.0 mmHg (35-45) 10/31/21 05:07 ABG pO2 63.0 mmHg (80.0-100.0) L 10/31/21 05:07 ABG HCO3 20.5 mmol/L (22-26) L 10/31/21 05:07 ABG Base Excess -4.3 mmol/L (-2.0-2.0) L 10/31/21 05:07 Pedro Test N/a 10/31/21 05:07 Hematocrit 42.9 % (42-52) 10/31/21 05:07 O2 Delivery Device Nc 10/31/21 05:07 O2 Liters/Min 5.0 % 10/31/21 05:07 Senior Professional Services Consultant ID [email or web address] 10/31/21 05:07 Sodium 135 mmol/L (136-145) L 11/02/21 04:40 Potassium 4.7 mmol/L (3.5-5.1) 11/02/21 04:40 Chloride 104 mmol/L (98-107) 11/02/21 04:40 Carbon Dioxide 18 mmol/L (22-29) L 11/02/21 04:40 Anion Gap 17.7 (5-19) 11/02/21 04:40 BUN 61 mg/dL (6-20) H 11/02/21 04:40 Creatinine 2.7 mg/dL (0.7-1.2) H 11/02/21 04:40 GFR Calculation 24.8 mL/min (90-130) L 11/02/21 04:40 Glucose 275 mg/dL (65-115) H 11/02/21 04:40 POC Glucose 410 mg/dL (70-110) H 11/02/21 11:20 Estimat Average Glucose 229 10/30/21 05:21 Hemoglobin A1c 9.6 % (4.0-6.0) H 10/30/21 05:21 Calculated Osmolality 307 mOsm/kg (285-295) H 11/02/21 04:40 Lactic Acid 0.9 mmol/L (0.5-2.2) 10/30/21 05:21 Lactate 0.9 mmol/L (0.5-2.2) 11/01/21 05:29 Uric Acid 9.9 mg/dL (3.4-7.0) H 10/31/21 13:55 Calcium 7.7 mg/dL (8.5-10.5) L 11/02/21 04:40 Phosphorus 3.1 mg/dL (2.5-4.5) 11/02/21 04:40 Magnesium 2.4 mg/dL (1.7-2.3) H 11/02/21 04:40 Iron 18 ug/dL (59-158) L 10/30/21 05:21 TIBC 132 mcg/dl 10/30/21 05:21 % Saturation 13.6 % (20-50) L 10/30/21 05:21 Unsat Iron Binding 114 ug/dL (112-347) 10/30/21 05:21 Ferritin 1648 ng/mL (30-400) H 11/01/21 05:29 Total Bilirubin 0.2 mg/dL (0.15-1.2) 11/02/21 04:40 AST 47 U/L (0-40) H 11/02/21 04:40 ALT 22 U/L (0-41) 11/02/21 04:40 Alkaline Phosphatase 165 IU/L (40-130) H 11/02/21 04:40 Lactate Dehydrogenase 532 U/L (135-225) H 10/29/21 20:00 Creatine Kinase 54 U/L (39-308) 11/01/21 05:29 Troponin T Gen 5 ng/L 97 ng/L (0-15) H 10/29/21 20:00 Troponin T Baseline 85 ng/L (0-15) H 10/29/21 23:15 Troponin T 120 Minute 92.66 ng/L (0-15) H 10/30/21 01:45 Delta Troponin T 7.66 ABS# (0-10) 10/30/21 01:45 Troponin T Hi Sens 6Hr 87.47 ng/L (0-15) H 10/30/21 05:21 Troponin T Hi Sens 6Hr Delta 2.47 ng/L (0-12) 10/30/21 05:21 C-Reactive Protein 73.7 mg/L (0.0-4.9) H 11/01/21 05:29 NT-Pro-B Natriuret Pep 2125 pg/mL (0-125) H 11/01/21 05:29 Total Protein 5.6 g/dL (6.6-8.7) L 11/02/21 04:40 Albumin 2.2 g/dL (3.5-5.2) L 11/02/21 04:40 Globulin 3.4 g/dL (1.3-4.6) 11/02/21 04:40 Triglycerides 165 mg/dL (0-150) H 10/30/21 05:21 Cholesterol 105 mg/dL (0-200) 10/30/21 05:21 LDL Cholesterol, Calc 54 mg/dL (50-129) 10/30/21 05:21 HDL Cholesterol 18 mg/dL (60-100) L 10/30/21 05:21 LDL/HDL Ratio 3.00 RATIO (0.00-3.22) 10/30/21 05:21 Cholesterol/HDL Ratio 5.83 mg/dL (1.0-5.00) H 10/30/21 05:21 25-OH Vitamin D Total 10 ng/mL (30-100) L 11/01/21 05:29 Procalcitonin 0.21 ng/mL (0-0.5) 11/01/21 05:29 TSH 0.44 uIU/mL (0.27-4.20) 10/31/21 13:55 PTH Intact 105.1 pg/mL (15-65) H 11/01/21 05:29 Calcium (PTH Intact) 8.4 mg/dL (8.5-10.5) L 11/01/21 05:29 Random Cortisol 3.65 ug/dL (2.47-19.5) 11/01/21 05:29 Urine Color Yellow (Yellow) 10/29/21 12:03 Urine Appearance Clear (CLEAR) 10/29/21 12:03 Urine pH 5 (5-7) 10/29/21 12:03 Ur Specific [place] 1.015 (1.005-1.030) 10/29/21 12:03 Urine Protein 3+ (Negative) H 10/29/21 12:03 Urine Glucose (UA) 2+ (Normal) H 10/29/21 12:03 Urine Ketones 1+ (Negative) H 10/29/21 12:03 Urine Blood Neg (Negative) 10/29/21 12:03 Urine Nitrate Negative (Negative) 10/29/21 12:03 Urine Bilirubin Neg (Negative) 10/29/21 12:03 Urine Urobilinogen Norm mg/dL (Negative) 10/29/21 12:03 Ur Leukocyte Esterase Negative (Negative) 10/29/21 12:03 Urine RBC 0-4 /hpf (0-2) H 10/29/21 12:03 Urine WBC 0-4 /hpf (0-5) H 10/29/21 12:03 Ur Eosinophil Smear 0 (0-0) 10/30/21 18:39 Ur Squamous Epith Cells 0-4 /hpf (0-5) H 10/29/21 12:03 Amorphous Sediment Not Reportable 10/29/21 12:03 Urine Bacteria 1+ /hpf (NONE) H 10/29/21 12:03 Urine Eosinophils No eosinophils seen 10/30/21 18:39 Ur Random Sodium 50 mmol/L 10/31/21 18:39 Ur Random Potassium 24 mmol/L 10/30/21 18:39 Ur Random Chloride 36 mmol/L 10/30/21 18:39 Urine Creatinine 82 mg/dL (39-259) 10/30/21 18:39 Hepatitis C Antibody Non-reactive (Nonreactive) 10/31/21 13:55 Influenza Type A Ag Negative (Negative) 10/29/21 20:45 Influenza Type B Ag Negative (Negative) 10/29/21 20:45 SARS-CoV-2 Ag (Rapid) Negative (Negative) 10/29/21 22:45 Vitals Last Vital Signs Temp 97.5 F L 11/02/21 07:43 Pulse 76 11/02/21 11:40 Resp 16 11/02/21 11:39 BP 118/70 11/02/21 11:26 Pulse Ox 94 11/02/21 11:39 Discharge Plan Discharge Patient Disposition: Home Condition: Stable Prescriptions: New aspirin 81 mg Tablet,Delayed Release (Dr/Ec) 81 mg PO DAILY 30 Days Qty: 30 0RF zinc gluconate 50 mg Tablet 50 mg PO DAILY 30 Days Qty: 30 0RF atorvastatin 40 mg Tablet 40 mg PO BEDTIME 30 Days Qty: 30 0RF albuterol sulfate 90 mcg/actuation HFA aerosol inhaler 1 inh inhalation Q6H PRN (Reason: shortness of breath or wheezing) Qty: 8.5 0RF ascorbic acid (vitamin C) [Vitamin C] 500 mg Tablet 500 mg PO BID 30 Days Qty: 60 0RF docusate sodium 100 mg Capsule 100 mg PO BID 30 Days Qty: 60 0RF metoprolol succinate 100 mg Tablet Extended Release 24 Hr 100 mg PO BID 30 Days Qty: 60 0RF Eliquis 5 mg Tablet 5 mg PO BID@0900,2100 30 Days Qty: 60 0RF fluticasone propion-salmeterol [Advair Diskus] 100-50 mcg/dose blister with device 1 inh inhalation BID Qty: 60 0RF Continued amlodipine 10 mg tablet 10 mg PO DAILY 0RF atorvastatin 80 mg tablet 80 mg PO DAILY 0RF pregabalin [Lyrica] 200 mg capsule 200 mg PO BID 0RF gabapentin 300 mg capsule 300 mg PO BID 0RF olmesartan 20 mg tablet 20 mg PO DAILY 0RF Vitamin B-12 1,000 mcg/mL Solution 1,000 mcg IM Q30D 0RF aspirin 81 mg Tablet,Chewable 81 mg PO DAILY 0RF Changed Levemir FlexTouch U-100 Insuln 100 unit/mL (3 mL) insulin pen 55 unit SUBCUT BID Qty: 0 0RF insulin lispro [Humalog KwikPen Insulin] 100 unit/mL insulin pen See Rx Instructions .ROUTE .COMPLEX Qty: 0 0RF Rx Instructions: Inject, subcu, 3 times daily, after meals, based on sliding scale provided Discontinued omeprazole 40 mg capsule,delayed release(DR/EC) 40 mg PO DAILY 0RF lovastatin 40 mg tablet 40 mg PO DAILY 0RF metoprolol tartrate 100 mg tablet 100 mg PO BID 0RF Discharge Orders: Discharge Order (Routine); Ordered 11/02/21 Ordered By: Luciano Mariscal Referrals: Vidhi Gillette FNP [Primary Care Provider] - 1 week Davin Diaz M.D [Physician] - 6 Weeks (nstemi) Patient Instructions: Opioid Safety Activity Restrictions/Additional Instructions: -Discussed with primary care provider for Covid 19 vaccination -Facemask, hand wash -Continue to self isolate for at least 14 days -Eliquis 5 mg twice a day for DVT and pulmonary embolism and hypercoagulability prophylaxis -Monitor for bloody or black stools if so go to the emergency room -Follow-up with primary care provider for recheck hemoglobin 1 week -Oxygen as prescribed -Take antibiotics inhalers as prescribed -Check blood sugars 3 times daily -Monitor for hypoglycemia as you were on steroids -Insulin sliding fingerstick Insulin 141-180 4 units/sq 181-220 6 units/sq 221-260 8 units/sq 261-300 10 units/sq 301-350 12 units/sq 351-400 14 units/sq >400 16 units/sq Discharge Attestations Time Spent in Discharge Care*: greater than 30 min Quality Metrics Clinical Quality Measures [ No reported AMI, CVA or VTE this stay] Coding Level of Care Code Acute g FW DC note Diagnoses Acute kidney injury superimposed on chronic kidney disease N17.9; N18.9
[2021-11-02 17:17] LABS: Glucose Point of Care 318 mg/dL (70-110)
[2021-11-02] MEDS: dexamethasone 10 mg/mL INJ 6 MG IVP (20:03)
[2021-11-02] MEDS: atorvastatin 40 mg Tablet PO (20:03)
[2021-11-02 21:39] LABS: Glucose Point of Care 189 mg/dL (70-110)
--- NOTE | 2021-11-02 22:03 | PC.NURSE ---
2100 Patients ride (Tunde from [employer]) about to leave but patient has not voided. Patient requested that I remake his bed so he can lay down. States it's so late at night that he thinks he will just bed down for the night and go home tomorrow. Explained to the patient that I will complete a bladder scan on him if hasn't voided soon. Bed remade per patients request. Assisted patient to bed-now resting comfortably.
--- NOTE | 2021-11-02 23:08 | PC.NURSE ---
[address] Alvarez regarding patient inability to void. Bladder scan showing 156cc's in bladder currently. No new orders at this time-just continue to monitor as patient is on 1500 cc fluid restriction and has no sensation to void.
[2021-11-03] VITALS: BP 117/66; PULSE 68; RESP 18; TEMP 36.4; O2SAT 94
[2021-11-03] MEDS: cefTRIAXone 1,000 MG in sodium chloride 0.9% (plus) 50 ML 100 MG IV (00:58)
--- NOTE | 2021-11-03 02:46 | PC.NURSE ---
Patient still has not voided. Currently at 12 hour juan. Bladder scan shows 385 cc's. Patient denies sensation to urinate. Message sent to Dr. Alvarez requesting permission to replace Reyes-awaiting response.
--- NOTE | 2021-11-03 03:04 | PC.NURSE ---
Order received to replace Fischer as patient was unable to void and denying sensation of need with 385 cc's on bladder scan. When I went to replace Fischer, patient requested to void. Patient voided 350 cc's of clear yellow urine. Spoke to Dr. Alvarez-will hold order to replace fischer at this time.
[2021-11-03 04:00] VITALS: BP 115/69; PULSE 68; RESP 16; RESP 18; TEMP 36.6; O2SAT 96
[2021-11-03 04:57] LABS: Basophils % 0.4 %; Hematocrit 43.8 % (42.0-52.0); Hemoglobin 13.3 g/dL (11.7-16.6); Lymphocytes # 0.7 10^3/uL (0.8-4.8); Lymphocytes % 7.2 %; Mean Corpuscular HGB Conc 30.4 g/dL (30.0-36.0); Mean Corpuscular Hemoglobin 27.1 pg (28.0-34.0); Mean Corpuscular Volume 89.4 fl (80-94); Mean Platelet Volume 12.2 fL (7.4-10.4); Monocytes # 0.3 10^3/uL (0.2-0.9); Monocytes % 3.5 %; Neutrophils # 7.83 10^3/uL (1.8-7.7); Neutrophils % 84.9 %; Nucleated Red Blood Cells % 0 %; Platelet Count 289 10^3/cmm (130-400); Red Cell Distribution Width 15.4 % (12.1-15.1); White Blood Count 9.2 10^3/uL (4.0-10.0)
[2021-11-03 05:18] LABS: Alanine Aminotransferase 24 U/L (0-41); Albumin Level 2.5 g/dL (3.5-5.2); Alkaline Phosphatase 156 IU/L (40-130); Anion Gap 16.7 (5-19); Aspartate Amino Transferase 40 U/L (0-40); Blood Urea Nitrogen 60 mg/dL (6-20); Calcium 7.7 mg/dL (8.5-10.5); Carbon Dioxide 17 mmol/L (22-29); Chloride 108 mmol/L (98-107); Globulin 2.8 g/dL (1.3-4.6); Glomerular Filtration Rate 27.2 mL/min (90-130); Glucose 84 mg/dL (65-115); Magnesium 2.4 mg/dL (1.7-2.3); Osmolality Calculated 300 mOsm/kg (285-295); Phosphorus 3.2 mg/dL (2.5-4.5); Potassium 4.7 mmol/L (3.5-5.1); Sodium 137 mmol/L (136-145); Total Bilirubin 0.2 mg/dL (0.15-1.2); Total Protein 5.3 g/dL (6.6-8.7)
[2021-11-03 06:49] LABS: Glucose Point of Care 80 mg/dL (70-110)
[2021-11-03 08:00] VITALS: BP 119/77; PULSE 75; RESP 15; TEMP 36.9; O2SAT 97
--- NOTE | 2021-11-03 08:51 | PC.SOCIAL ---
IMM UPDATED IMM dated and initialed and copy given to patient
[2021-11-03] MEDS: tamsulosin 0.4 mg Capsule PO (09:25)
[2021-11-03] MEDS: ascorbic acid 500 mg Tablet PO (09:25)
[2021-11-03] MEDS: gabapentin 300 mg Capsule PO (09:25)
[2021-11-03] MEDS: metoprolol succinate ER (24 HR) 100 mg Tablet PO (09:25)
[2021-11-03] MEDS: amlodipine 5 mg Tablet PO (09:25)
[2021-11-03] MEDS: zinc gluconate 50 mg Tablet PO (09:25)
[2021-11-03] MEDS: pantoprazole DR 40 mg Tablet PO (09:25)
[2021-11-03] MEDS: apixaban 5 mg Tablet PO (09:25)
[2021-11-03] MEDS: docusate sodium 100 mg Capsule PO (09:25)
[2021-11-03] MEDS: azithromycin 250 mg Tablet 500 MG PO (09:25)
[2021-11-03] MEDS: aspirin 81 mg EC Tablet PO (09:26)
[2021-11-03 12:20] LABS: Glucose Point of Care 125 mg/dL (70-110)
[2021-11-03 12:27] VITALS: BP 119/77; PULSE 75; RESP 15; TEMP 36.9; O2SAT 97
[2021-11-04 12:17] LABS: ANCA Screen NEGATIVE (NEGATIVE)
[2021-11-05 15:17] LABS: Vit D 1,25 (Oh)2, Total 46 pg/mL (18-72); Vit D2 1,25 (Oh)2 <8 pg/mL; Vit D3 1,25 (Oh)2 46 pg/mL
== END 2021-11-03 12:28 | disposition home health service (06) | DRG 177 ==
LOC: ER 22:11 → MEDSURG 10-30 00:26
PROVIDERS: Internal Medicine Nephrology; Student in an Organized Health Care Education/Training Program; Admitting Provider Family Medicine; Emergency Provider Emergency Medicine; PCP Nurse Practitioner Family; Visit Provider Family Medicine
DX: U07.1 COVID-19 (principal); L89.624 Pressure ulcer of left heel, stage 4; J12.82 Pneumonia due to coronavirus disease 2019; J96.01 Acute respiratory failure with hypoxia; I21.4 Non-ST elevation (NSTEMI) myocardial infarction; N17.9 Acute kidney failure, unspecified; M86.672 Other chronic osteomyelitis, left ankle and foot; E87.1 Hypo-osmolality and hyponatremia; E87.4 Mixed disorder of acid-base balance; E11.22 Type 2 diabetes mellitus with diabetic chronic kidney disease; E11.65 Type 2 diabetes mellitus with hyperglycemia; E11.42 Type 2 diabetes mellitus with diabetic polyneuropathy; N18.30 Chronic kidney disease, stage 3 unspecified; E11.69 Type 2 diabetes mellitus with other specified complication; E78.5 Hyperlipidemia, unspecified; E86.0 Dehydration; Z79.82 Long term (current) use of aspirin
CPT/HCPCS: 36415; 36416; 36600; 51702; 71045; 71250; 76770; 80053; 80061; 81001; 82306; 82310; 82436; 82533; 82550; 82570; 82652; 82728; 82803; 82962; 83036; 83516; 83540; 83550; 83605; 83615; 83735; 83880; 83970; 84100; 84133; 84145; 84300; 84443; 84484; 84550; 85025; 85378; 85384; 85610; 85730; 85999; 86140; 86403; 86803; 87040; 87426; 87449; 87641; 87804; 93005; 93306; 93970; 94640; 96372; 97110; 97116; 97162; 97165; 97530; 97535; J0456; J0696; J1100; J1650; J1815; J1940; J3262; J7030; J7050; J7611; J7626; Q0144; Q3014

== ENCOUNTER 2021-11-30 09:27 | Outpatient (CLI) | payer MEDICARE, MEDICAID, SELFPAY | END 2021-11-30 09:28 | disposition home or self-care (01) | LOC: WOUND 09:27 | PROVIDERS: PCP Nurse Practitioner Family; Visit Provider Emergency Medicine | DX: E11.621 Type 2 diabetes mellitus with foot ulcer (principal); I96 Gangrene, not elsewhere classified; L89.623 Pressure ulcer of left heel, stage 3 | CPT/HCPCS: 11042; 11045; 87070; 87176; 87205; 99212; A6252 ==

== ENCOUNTER 2021-12-07 09:05 | Outpatient (CLI) | payer MEDICARE, MEDICAID, SELFPAY | END 2021-12-07 09:06 | disposition home or self-care (01) | LOC: WOUND 09:06 | PROVIDERS: PCP Nurse Practitioner Family; Visit Provider Nurse Practitioner Family | DX: E11.621 Type 2 diabetes mellitus with foot ulcer (principal); L89.623 Pressure ulcer of left heel, stage 3 | CPT/HCPCS: 11042; 11045 ==

== ENCOUNTER 2021-12-14 08:03 | Outpatient (CLI) | payer MEDICARE, MEDICAID, SELFPAY | END 2021-12-14 08:04 | disposition home or self-care (01) | LOC: WOUND 08:04 | PROVIDERS: PCP Nurse Practitioner Family; Visit Provider Nurse Practitioner Family | DX: E11.622 Type 2 diabetes mellitus with other skin ulcer (principal); L89.623 Pressure ulcer of left heel, stage 3 | CPT/HCPCS: 11042; A6251 ==

== ENCOUNTER 2021-12-20 14:40 | Outpatient (CLI) | payer MEDICARE, MEDICAID, SELFPAY ==
[2021-12-20 15:32] LABS: Anion Gap 15.8 (5-19); Blood Urea Nitrogen 22 mg/dL (6-20); Calcium 9.2 mg/dL (8.5-10.5); Carbon Dioxide 20 mmol/L (22-29); Chloride 103 mmol/L (98-107); Glomerular Filtration Rate 48.8 mL/min (90-130); Glucose 163 mg/dL (65-115); Osmolality Calculated 285 mOsm/kg (285-295); Potassium 4.8 mmol/L (3.5-5.1); Sodium 134 mmol/L (136-145)
== END 2021-12-20 14:41 | disposition home or self-care (01) ==
PROVIDERS: PCP Nurse Practitioner Family; Visit Provider Internal Medicine Nephrology
DX: N18.30 Chronic kidney disease, stage 3 unspecified (principal)
CPT/HCPCS: 80048

== ENCOUNTER → 2021-12-21 07:58 | Outpatient (BNVA) | payer MEDICARE, MEDICAID, SELFPAY | PROVIDERS: PCP Nurse Practitioner Family; Visit Provider Nurse Practitioner Family | DX: E11.621 Type 2 diabetes mellitus with foot ulcer (principal); I96 Gangrene, not elsewhere classified; L97.423 Non-pressure chronic ulcer of left heel and midfoot with necrosis of muscle | CPT/HCPCS: 11042; 11045 ==

== ENCOUNTER → 2021-12-28 08:00 | Outpatient (BNVA) | payer MEDICARE, MEDICAID, SELFPAY | PROVIDERS: PCP Nurse Practitioner Family; Visit Provider Nurse Practitioner Family | DX: E11.621 Type 2 diabetes mellitus with foot ulcer (principal); I96 Gangrene, not elsewhere classified; L97.423 Non-pressure chronic ulcer of left heel and midfoot with necrosis of muscle | CPT/HCPCS: 11042; A6197; A6252 ==

== ENCOUNTER → 2022-01-04 08:10 | Outpatient (BNVA) | payer MEDICARE, MEDICAID, SELFPAY | PROVIDERS: PCP Nurse Practitioner Family; Visit Provider Nurse Practitioner Family | DX: E11.621 Type 2 diabetes mellitus with foot ulcer (principal); L97.423 Non-pressure chronic ulcer of left heel and midfoot with necrosis of muscle; I96 Gangrene, not elsewhere classified | CPT/HCPCS: 11042; 11045; 87070; 87077; 87176; 87186; 87205; A6197; A6252 ==

== ENCOUNTER → 2022-01-10 10:34 | Outpatient (BNVA) | payer MEDICARE, MEDICAID, SELFPAY | PROVIDERS: PCP Nurse Practitioner Family; Visit Provider Internal Medicine | DX: E11.22 Type 2 diabetes mellitus with diabetic chronic kidney disease (principal); E11.40 Type 2 diabetes mellitus with diabetic neuropathy, unspecified; E11.65 Type 2 diabetes mellitus with hyperglycemia; E11.621 Type 2 diabetes mellitus with foot ulcer; N18.30 Chronic kidney disease, stage 3 unspecified; E78.5 Hyperlipidemia, unspecified; L98.494 Non-pressure chronic ulcer of skin of other sites with necrosis of bone; Z79.4 Long term (current) use of insulin | CPT/HCPCS: 99214 ==

== ENCOUNTER → 2022-01-11 08:01 | Outpatient (BNVA) | payer MEDICARE, MEDICAID, SELFPAY | PROVIDERS: PCP Nurse Practitioner Family; Visit Provider Nurse Practitioner Family | DX: E11.621 Type 2 diabetes mellitus with foot ulcer (principal); L97.423 Non-pressure chronic ulcer of left heel and midfoot with necrosis of muscle | CPT/HCPCS: 11042; 11045; A6197 ==

== ENCOUNTER → 2022-01-18 08:00 | Outpatient (BNVA) | payer MEDICARE, MEDICAID, SELFPAY | PROVIDERS: PCP Nurse Practitioner Family; Visit Provider Nurse Practitioner Family | DX: L89.623 Pressure ulcer of left heel, stage 3 (principal); I96 Gangrene, not elsewhere classified; E11.621 Type 2 diabetes mellitus with foot ulcer | CPT/HCPCS: 11042; A6250; A6252 ==

== ENCOUNTER → 2022-01-25 07:59 | Outpatient (BNVA) | payer MEDICARE, MEDICAID, SELFPAY | PROVIDERS: PCP Nurse Practitioner Family; Visit Provider Nurse Practitioner Family | DX: E11.621 Type 2 diabetes mellitus with foot ulcer (principal); L89.623 Pressure ulcer of left heel, stage 3; I96 Gangrene, not elsewhere classified | CPT/HCPCS: 11042; A6197; A6252 ==

== ENCOUNTER → 2022-02-01 08:02 | Outpatient (BNVA) | payer MEDICARE, MEDICAID, SELFPAY | PROVIDERS: PCP Nurse Practitioner Family; Visit Provider Nurse Practitioner Family | DX: E11.621 Type 2 diabetes mellitus with foot ulcer (principal); L97.523 Non-pressure chronic ulcer of other part of left foot with necrosis of muscle; I96 Gangrene, not elsewhere classified | CPT/HCPCS: 15275; A6207; A6250; A6252; Q4196 ==

== ENCOUNTER → 2022-02-08 07:56 | Outpatient (BNVA) | payer MEDICARE, MEDICAID, SELFPAY | PROVIDERS: PCP Nurse Practitioner Family; Visit Provider Nurse Practitioner Family | DX: E11.621 Type 2 diabetes mellitus with foot ulcer (principal); I96 Gangrene, not elsewhere classified; L89.623 Pressure ulcer of left heel, stage 3 | CPT/HCPCS: 11042; A6252 ==

== ENCOUNTER 2022-02-09 11:13 | Outpatient (CLI) | payer MEDICARE, MEDICAID, SELFPAY ==
[2022-02-09 11:52] LABS: Estmated Average Glucose 229; Hemoglobin A1C 9.6 % (4.0-6.0)
[2022-02-09 11:54] LABS: Alanine Aminotransferase 13 U/L (0-41); Albumin Level 3.3 g/dL (3.5-5.2); Alkaline Phosphatase 208 IU/L (40-130); Aspartate Amino Transferase 22 U/L (0-40); Blood Urea Nitrogen 29 mg/dL (6-20); Carbon Dioxide 21 mmol/L (22-29); Chloride 103 mmol/L (98-107); Chol HDL Ratio 5.48 mg/dL (1.0-5.00); Cholesterol 159 mg/dL (0-200); Globulin 4.1 g/dL (1.3-4.6); Glomerular Filtration Rate 33.1 mL/min (90-130); Glucose 143 mg/dL (65-115); HDL Cholesterol 29 mg/dL (60-100); LDL Cholesterol Calculated 98 mg/dL (50-129); LDL HDL Ratio 3.38 RATIO (0.00-3.22); Osmolality Calculated 288 mOsm/kg (285-295); Phosphorus 3.8 mg/dL (2.5-4.5); Sodium 135 mmol/L (136-145); Total Bilirubin 0.2 mg/dL (0.15-1.2); Total Protein 7.4 g/dL (6.6-8.7); Triglycerides 160 mg/dL (0-150)
[2022-02-09 11:56] LABS: Calcium 8.7 mg/dL (8.5-10.5)
[2022-02-09 12:03] LABS: Parathyroid Hormone 121.8 pg/mL (15-65)
[2022-02-09 12:11] LABS: Creatinine Urine, Random 40 mg/dL (39-259)
[2022-02-09 12:26] LABS: Microalbum Creatinine Ratio Ur 5500 mg/dL (0-20); Microalbumin Random Urine 220 ug/dL (0-20)
== END 2022-02-09 11:14 | disposition home or self-care (01) ==
LOC: LAB 11:14
PROVIDERS: Internal Medicine; PCP Nurse Practitioner Family; Visit Provider Internal Medicine Nephrology
DX: E11.22 Type 2 diabetes mellitus with diabetic chronic kidney disease (principal); N18.30 Chronic kidney disease, stage 3 unspecified; E78.5 Hyperlipidemia, unspecified
CPT/HCPCS: 80053; 80061; 82044; 82310; 83036; 83970; 84100

== ENCOUNTER → 2022-02-15 07:58 | Outpatient (BNVA) | payer MEDICARE, MEDICAID, SELFPAY | PROVIDERS: PCP Nurse Practitioner Family; Visit Provider Nurse Practitioner Family | DX: E11.621 Type 2 diabetes mellitus with foot ulcer (principal); L97.412 Non-pressure chronic ulcer of right heel and midfoot with fat layer exposed; I96 Gangrene, not elsewhere classified | CPT/HCPCS: 11042; A6197; A6252 ==

== ENCOUNTER → 2022-02-22 07:56 | Outpatient (BNVA) | payer MEDICARE, MEDICAID, SELFPAY | PROVIDERS: PCP Nurse Practitioner Family; Visit Provider Nurse Practitioner Family | DX: E11.621 Type 2 diabetes mellitus with foot ulcer (principal); L97.423 Non-pressure chronic ulcer of left heel and midfoot with necrosis of muscle; I96 Gangrene, not elsewhere classified | CPT/HCPCS: 11042; A6197; A6252 ==

== ENCOUNTER → 2022-03-01 08:04 | Outpatient (BNVA) | payer MEDICARE, MEDICAID, SELFPAY | PROVIDERS: PCP Nurse Practitioner Family; Visit Provider Nurse Practitioner Family | DX: E11.621 Type 2 diabetes mellitus with foot ulcer (principal); L97.423 Non-pressure chronic ulcer of left heel and midfoot with necrosis of muscle; I96 Gangrene, not elsewhere classified | CPT/HCPCS: 11042; A6197; A6251 ==

== ENCOUNTER → 2022-03-08 08:09 | Outpatient (BNVA) | payer MEDICARE, MEDICAID, SELFPAY | PROVIDERS: PCP Nurse Practitioner Family; Visit Provider Nurse Practitioner Family | DX: I96 Gangrene, not elsewhere classified (principal); L89.623 Pressure ulcer of left heel, stage 3; E11.621 Type 2 diabetes mellitus with foot ulcer | CPT/HCPCS: 11042; A6197; A6252 ==

== ENCOUNTER → 2022-03-15 08:11 | Outpatient (BNVA) | payer MEDICARE, MEDICAID, SELFPAY | PROVIDERS: PCP Nurse Practitioner Family; Visit Provider Nurse Practitioner Family | DX: E11.621 Type 2 diabetes mellitus with foot ulcer (principal); L97.423 Non-pressure chronic ulcer of left heel and midfoot with necrosis of muscle; I96 Gangrene, not elsewhere classified | CPT/HCPCS: 11042; A6197; A6252 ==

== ENCOUNTER → 2022-03-22 07:53 | Outpatient (BNVA) | payer MEDICARE, MEDICAID, SELFPAY | PROVIDERS: PCP Nurse Practitioner Family; Visit Provider Nurse Practitioner Family | DX: E11.621 Type 2 diabetes mellitus with foot ulcer (principal); L97.423 Non-pressure chronic ulcer of left heel and midfoot with necrosis of muscle; I96 Gangrene, not elsewhere classified | CPT/HCPCS: 11042; A6197; A6252 ==

== ENCOUNTER → 2022-03-27 14:55 | Outpatient (BNVA) | payer MEDICARE, MEDICAID, SELFPAY | PROVIDERS: PCP Nurse Practitioner Family; Visit Provider Nurse Practitioner Family | DX: E11.621 Type 2 diabetes mellitus with foot ulcer (principal); L97.423 Non-pressure chronic ulcer of left heel and midfoot with necrosis of muscle; I96 Gangrene, not elsewhere classified | CPT/HCPCS: 97597; A6197 ==

== ENCOUNTER → 2022-04-05 07:58 | Outpatient (BNVA) | payer MEDICARE, MEDICAID, SELFPAY | PROVIDERS: PCP Nurse Practitioner Family; Visit Provider Emergency Medicine | DX: E11.621 Type 2 diabetes mellitus with foot ulcer (principal); L97.423 Non-pressure chronic ulcer of left heel and midfoot with necrosis of muscle; I96 Gangrene, not elsewhere classified | CPT/HCPCS: 11042; A6197; A6252 ==

== ENCOUNTER → 2022-04-12 08:07 | Outpatient (BNVA) | payer MEDICARE, MEDICAID, SELFPAY | PROVIDERS: PCP Nurse Practitioner Family; Visit Provider Nurse Practitioner Family | DX: E11.621 Type 2 diabetes mellitus with foot ulcer (principal); L97.423 Non-pressure chronic ulcer of left heel and midfoot with necrosis of muscle; I96 Gangrene, not elsewhere classified | CPT/HCPCS: 11042; A6197 ==

== ENCOUNTER 2022-04-16 16:40 | Observation (INO) | payer MEDICARE, MEDICAID, SELFPAY ==
[2022-04-16 17:26] VITALS: BP 169/75; PULSE 70; RESP 16; TEMP 36.6; O2SAT 98
--- NOTE | 2022-04-16 18:47 | ECG_ITS ---
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 Measurements Intervals [place] Rate: 64 P: 21 CA: 193 QRS: 111 QRSD: 135 T: 39 QT: 363 QTc: 377 Interpretive Statements SINUS RHYTHM RIGHT AXIS DEVIATION [QRS AXIS > 100] RIGHT BUNDLE BRANCH BLOCK [120+ ms QRS DURATION, UPRIGHT V1, 40+ ms S IN I/aVL/V4/V5/V6] Compared to ECG 10/30/2021 04:15:59 No significant changes Electronically Signed On 04-16-2022 19:04:50 CDT by Davin Diaz M.D. [email or web address]
--- NOTE | 2022-04-16 18:51 | W.ED.GENADLT ---
HPI - General Adult General: Chief complaint: Recheck/Abnormal Lab/Rx Stated complaint: abnormal labs Time Seen by Provider: 04/16/22 18:27 History of Present Illness: Patient is a 56-year-old male with a history of CKD, diabetes who presents emergency room with concerns for hyperkalemia. Patient had routine blood work done today at his primary care provider's office was noted to have potassium of 6.0. In addition, patient noted to have new kidney injury of with creatinine value of 2.5. Patient still able to make urine. Patient denies nausea/vomiting, fever/chill, chest pain, shortness of breath, abdominal pain, dysuria/hematuria/polyuria, diarrhea/melena/hematochezia. Onset:unknown Duration:ongoing Location:home Severity:moderate Associated symptoms: Deny chest pain, dyspnea, nausea, rash, palpitations or vomiting Review of Systems Const: Denies: fever(s) or chills Eyes: Denies: change in vision ENMT: Denies: mouth pain Card: Denies: chest pain or palpitations Resp: Denies: dyspnea or non-productive cough GI: Denies: abdominal pain, nausea, vomiting or diarrhea : Denies: dysuria Musc: Denies: extremity pain Skin/Breast: Denies: rash or new lesions Neuro: Denies: weakness in extremities Psych: Reports: other (Normal mood) Jarrod/Lymph: Denies: easy bruising PFSH ED PFSH: Medical History Diabetes Neuropathy Onychomycosis of nail of digit of hand Surgical History H/O circumcision H/O colonoscopy 7 yrs ago Status post debridement of ulcer of heel Family History Brother Cancer Sister Lung disease Mother Heart failure Father Chronic kidney failure Denies family history of Anesthesia complication Bleeding disorder Social History Smoking and tobacco status: never smoked Second hand smoke exposure: No Alcohol intake: never Adopted: No Lives independently: Yes Marital status: Single Current occupational status: disabled History of recent travel: No Physical Exam Const: COMMON NORMALS: alert HENMT: COMMON NORMALS: atraumatic HEAD & SCALP: atraumatic MOUTH: moist mucous membranes not abnormal Eye: COMMON NORMALS: EOMs intact bilaterally and conjunctivae normal CONJUNCTIVA: Yes conjunctivae normal Neck/C-Spine: COMMON NORMALS: full ROM and supple Resp: COMMON NORMALS: normal respiratory effort and clear to auscultation bilaterally AUSCULTATION: clear to auscultation bilaterally Cardio: COMMON NORMALS: regular rate RATE: regular rate GI: COMMON NORMALS: Soft to palpation and non-tender PALPATION: Yes Soft to palpation Extremity: COMMON NORMALS: full ROM Neuro: SENSORIUM/ORIENTATION: Yes alert MOTOR EXAM: No Abnormal motor strength present and Other motor observations present (no focal motor deficits) Psych: COMMON NORMALS: speech normal SPEECH: Yes normal speech MOOD & AFFECT: Yes euthymic mood Course Vital Signs: Vital signs: Vital Signs Temperature 97.8 F 04/16/22 17:26 Pulse Rate 70 04/16/22 17:26 Respiratory Rate 16 04/16/22 17:26 Blood Pressure 169/75 04/16/22 17:26 Pulse Oximetry 98 04/16/22 17:26 [facility] - General Adult Medical Decision Making 56-year-old male with history diabetes, CKD presents the emergency room with concerns of hyperkalemia. Patient is hemodynamically stable currently. Lab work-up showed a potassium of 6.2. Creatinine of 2.5 up from baseline of 2. EKG not showing signs of hyperkalemia. Patient will be admitted to hospital for management of potassium elevation and ARJUN on CKD. Patient received 80 mg of Lasix Dispoistion: admission Lab Data : 04/16/22 18:40 04/16/22 18:40 Laboratory Results WBC 9.3 10^3/uL (4.0-10.0) 04/16/22 18:40 RBC 5.03 10^6/uL (4.1-5.3) 04/16/22 18:40 Hgb 13.6 g/dL (11.7-16.6) 04/16/22 18:40 Hct 43.9 % (42.0-52.0) 04/16/22 18:40 MCV 87.3 fl (80-94) 04/16/22 18:40 MCH 27.0 pg (28.0-34.0) L 04/16/22 18:40 MCHC 31.0 g/dL (30.0-36.0) 04/16/22 18:40 RDW 15.0 % (12.1-15.1) 04/16/22 18:40 Plt Count 249 10^3/cmm (130-400) 04/16/22 18:40 MPV 12.7 fL (7.4-10.4) H 04/16/22 18:40 Neut % (Auto) 63.8 % 04/16/22 18:40 Lymph % (Auto) 19.6 % 04/16/22 18:40 [place] % (Auto) 10.6 % 04/16/22 18:40 Eos % (Auto) 4.1 % 04/16/22 18:40 Baso % (Auto) 1.1 % 04/16/22 18:40 Neut # (Auto) 5.96 10^3/uL (1.8-7.7) 04/16/22 18:40 Lymph # (Auto) 1.8 10^3/uL (0.8-4.8) 04/16/22 18:40 [place] # (Auto) 1.0 10^3/uL (0.2-0.9) H 04/16/22 18:40 Eos # (Auto) 0.4 10^3/uL (0.0-0.8) 04/16/22 18:40 Baso # (Auto) 0.1 10^3/uL (0.0-0.1) 04/16/22 18:40 Nucleated RBC % (auto) 0 % 04/16/22 18:40 Nucleated RBCs # 0.0 /100WBC 04/16/22 18:40 Sodium 130 mmol/L (136-145) L 04/16/22 18:40 Potassium 6.2 mmol/L (3.5-5.1) H 04/16/22 18:40 Chloride 100 mmol/L (98-107) 04/16/22 18:40 Carbon Dioxide 19 mmol/L (22-29) L 04/16/22 18:40 Anion Gap 17.2 (5-19) 04/16/22 18:40 BUN 28 mg/dL (6-20) H 04/16/22 18:40 Creatinine 2.5 mg/dL (0.7-1.2) H 04/16/22 18:40 GFR Calculation 27.0 mL/min (90-130) L 04/16/22 18:40 Glucose 279 mg/dL (65-115) H 04/16/22 18:40 Calculated Osmolality 286 mOsm/kg (285-295) 04/16/22 18:40 Calcium 8.9 mg/dL (8.5-10.5) 04/16/22 18:40 Magnesium 2.0 mg/dL (1.7-2.3) 04/16/22 18:40 Total Bilirubin 0.2 mg/dL (0.15-1.2) 04/16/22 18:40 AST 16 U/L (0-40) 04/16/22 18:40 ALT 9 U/L (0-41) 04/16/22 18:40 Alkaline Phosphatase 210 IU/L (40-130) H 04/16/22 18:40 Total Protein 7.3 g/dL (6.6-8.7) 04/16/22 18:40 Albumin 3.0 g/dL (3.5-5.2) L 04/16/22 18:40 Globulin 4.3 g/dL (1.3-4.6) 04/16/22 18:40 Discharge Plan Discharge Patient Disposition: Admitted As Inpatient Clinical Impression: Acute kidney injury superimposed on CKD, Acute hyperkalemia Condition: Stable Coding Level of Care Code ED Breading Machine Tender for Blaise Fwd Exam Comprehensive
[2022-04-16 19:05] LABS: Basophils # 0.1 10^3/uL (0.0-0.1); Basophils % 1.1 %; Eosinophils # 0.4 10^3/uL (0.0-0.8); Eosinophils % 4.1 %; Hematocrit 43.9 % (42.0-52.0); Hemoglobin 13.6 g/dL (11.7-16.6); Lymphocytes # 1.8 10^3/uL (0.8-4.8); Lymphocytes % 19.6 %; Mean Corpuscular Volume 87.3 fl (80-94); Mean Platelet Volume 12.7 fL (7.4-10.4); Monocytes % 10.6 %; Neutrophils # 5.96 10^3/uL (1.8-7.7); Neutrophils % 63.8 %; Nucleated Red Blood Cells % 0 %; Platelet Count 249 10^3/cmm (130-400); Red Blood Count 5.03 10^6/uL (4.1-5.3); White Blood Count 9.3 10^3/uL (4.0-10.0)
[2022-04-16 19:36] LABS: Alanine Aminotransferase 9 U/L (0-41); Alkaline Phosphatase 210 IU/L (40-130); Anion Gap 17.2 (5-19); Aspartate Amino Transferase 16 U/L (0-40); Blood Urea Nitrogen 28 mg/dL (6-20); Calcium 8.9 mg/dL (8.5-10.5); Carbon Dioxide 19 mmol/L (22-29); Chloride 100 mmol/L (98-107); Globulin 4.3 g/dL (1.3-4.6); Glucose 279 mg/dL (65-115); Osmolality Calculated 286 mOsm/kg (285-295); Potassium 6.2 mmol/L (3.5-5.1); Sodium 130 mmol/L (136-145); Total Bilirubin 0.2 mg/dL (0.15-1.2); Total Protein 7.3 g/dL (6.6-8.7)
[2022-04-16 19:50] VITALS: BP 144/73; PULSE 61; RESP 16; O2SAT 96
[2022-04-16] MEDS: FUROsemide 10 mg/mL SDV 10mL 80 MG IVP (20:47)
[2022-04-16 21:15] VITALS: BMI 43.8
--- NOTE | 2022-04-16 21:19 | PM.HP ---
Providers/Chief Complaint Admitting Physician: Indio Burroughs Primary Care Provider: SERAFIN Reza Chief Complaint: abnormal labs History of Present Illness Pleasant 56-year-old gentleman was referred from outpatient clinic due to abnormal labs with hyperkalemia, potassium 6.2, ARJUN on CKD, creatinine 2.5. He otherwise has been at baseline health. He follows with wound care clinic and has home health care coming into change dressings on diabetic foot wounds with large plantar heel ulceration on the left, smaller healing ulceration on the right anterolateral lower leg below the ankle. He denies recent antibiotics. Review of Systems Const: Denies: fever(s), chills, body aches or malaise Eyes: Denies: change in vision, eye discomfort or eye redness ENMT: Denies: throat pain, oral sores or ear or mastoid pain Card: Denies: chest pain, edema, pre-syncope or dyspnea on exertion Resp: Denies: dyspnea, productive cough, change in phlegm color or hemoptysis GI: Denies: abdominal pain, nausea, vomiting, diarrhea, constipation, hematochezia or melena : Denies: flank pain, difficulty urinating, urinary frequency or hematuria Musc: Denies: back pain, joint swelling or joint redness Skin/Breast: Denies: rash or new lesions Neuro: Denies: headache(s), numbness in extremities, weakness in extremities, dizziness, confusion or seizure-like activity Endo: Denies: polyuria or polydipsia Jarrod/Lymph: Denies: easy bleeding or tender lymph nodes All/Imm: Denies: urticaria or tongue swelling Medications/Allergies Home Medications Medication Instructions Recorded Confirmed Last Taken Type pregabalin 200 mg capsule (Lyrica) 200 mg PO BID 12/22/19 04/16/22 04/16/22 History amlodipine 10 mg tablet 10 mg PO DAILY 10/11/20 04/16/22 04/16/22 History atorvastatin 80 mg tablet 80 mg PO DAILY 10/11/20 04/16/22 04/16/22 History gabapentin 300 mg capsule 300 mg PO DAILY cap 10/11/20 04/16/22 04/16/22 History aspirin 81 mg chewable tablet 81 mg PO DAILY 10/30/21 04/16/22 04/16/22 History cyanocobalamin (vitamin B-12) 1,000 mcg IM Q30D 10/30/21 04/16/22 Unknown History 1,000 mcg/mL injection solution albuterol sulfate 90 mcg/actuation 1 inh INHALATION Q6H PRN #8.5 g 11/02/21 04/16/22 Unknown Rx aerosol inhaler fluticasone 100 mcg-salmeterol 50 1 inh INHALATION BID #60 ea 11/02/21 04/16/22 Unknown Rx mcg/dose blistr powdr for inhalation (Advair Diskus) insulin lispro 100 unit/mL See Rx Instructions .ROUTE 11/02/21 04/16/22 Unknown Rx subcutaneous pen (Humalog KwikPen .COMPLEX #0 ml (U-100) Insulin) insulin detemir U-100 100 unit/mL 52 unit SUBCUT BID 04/16/22 04/16/22 04/16/22 History (3 mL) subcutaneous pen (Levemir FlexTouch U-100 Insulin) insulin lispro 100 unit/mL See Rx Instructions .ROUTE .COMPLEX 04/16/22 04/16/22 04/16/22 History subcutaneous solution (Humalog U-100 Insulin) metformin 500 mg tablet 50 mg PO BID 04/16/22 04/16/22 04/16/22 History metoprolol tartrate 100 mg tablet 100 mg PO BID 04/16/22 04/16/22 04/16/22 History olmesartan 20 mg tablet 20 mg PO DAILY 04/16/22 04/16/22 04/16/22 History omeprazole 40 mg capsule,delayed 40 mg PO DAILY 04/16/22 04/16/22 04/16/22 History release Allergies Allergy/AdvReac Type Severity Reaction Status Date / Time No Known Allergies Allergy Verified 04/16/22 19:31 PFSH Acute PFSH: Medical History Diabetes Neuropathy Onychomycosis of nail of digit of hand Surgical History H/O circumcision H/O colonoscopy 7 yrs ago Status post debridement of ulcer of heel Family History Brother Cancer Sister Lung disease Mother Heart failure Father Chronic kidney failure Denies family history of Anesthesia complication Bleeding disorder Social History Smoking and tobacco status: never smoked Second hand smoke exposure: No Alcohol intake: never Adopted: No Lives independently: Yes Marital status: Single Current occupational status: disabled History of recent travel: No Vitals/I&O/Wt Last Vital Signs Temp 97.8 F 04/16/22 17:26 Pulse 61 04/16/22 19:50 Resp 16 04/16/22 19:50 BP 144/73 04/16/22 19:50 Pulse Ox 96 04/16/22 19:50 Weight last 48 hrs Weight 132.903 kg Physical Exam Const: COMMON NORMALS: alert GENERAL APPEARANCE: cooperative NUTRITIONAL APPEARANCE: overweight ORIENTATION/CONSCIOUSNESS: Yes awake HENMT: COMMON NORMALS: normocephalic, EAC's normal, Normal external nose present and moist oral mucous membranes HEAD & SCALP: normocephalic NOSE: Normal external nose present EXTERNAL AUDITORY CANAL: EAC's normal Neck/C-Spine: COMMON NORMALS: no meningeal signs Chest: CHEST: Yes Symmetrical chest wall rise Resp: COMMON NORMALS: clear to auscultation bilaterally AUSCULTATION: clear to auscultation bilaterally Cardio: COMMON NORMALS: regular rate, regular rhythm and No murmurs present (Cardio) RATE: regular rate RHYTHM: regular rhythm GI: COMMON NORMALS: Normal to inspection, nondistended, normoactive bowel sounds present, Soft to palpation and non-tender PALPATION: Yes Soft to palpation Extremity: COMMON NORMALS: no pedal edema Neuro: COMMON NORMALS: moves all extremities SENSORIUM/ORIENTATION: Yes alert MENINGEAL SIGNS: Yes no meningeal signs Psych: COMMON NORMALS: mental status grossly normal Skin: RASHES: no rashes WOUNDS: Yes wounds noted (L plantar heel, lge ulcer wo surr erythema) other (small healing ulcer ant-lat RLE below ankle) Data : 04/16/22 18:40 04/16/22 18:40 A&P Assessment and plan (1) Acute hyperkalemia: Received Lasix. Recheck potassium. I see he also has some metabolic acidosis, bicarb is 19, anion gap 17.2. Check urine and serum ketones. VBG. Continue insulin. Hold olmesartan. Low potassium diet. Cardiac monitoring. Status: Acute (2) Acute kidney injury superimposed on CKD: Hold olmesartan. Check urine studies, kidney and bladder ultrasound. Status: Acute Plan DM with diabetic neuropathy: Continue insulin, sliding scale insulin, consistent carbohydrate diet. Diabetic wounds: Continue wound care. Follows with wound care clinic and reports having home health coming to change dressings. Attestations Medical Necessity Statement*: Place in observation for additional assessment of management of acute hyperkalemia, ARJUN on CKD. Coding Level of Care Code Acute Archivist Military History for g Fwd Exam Comprehensive Diagnoses Acute hyperkalemia E87.5 Acute kidney injury superimposed on CKD N17.9; N18.9
[2022-04-16 21:32] VITALS: BP 164/83; PULSE 65; RESP 17; TEMP 36.1; O2SAT 96
[2022-04-16 21:43] VITALS: PULSE 66; RESP 16; O2SAT 96
[2022-04-16 22:00] VITALS: PULSE 70
--- NOTE | 2022-04-16 22:01 | PC.NURSE ---
ADMIT NOTE Pt was received to room from ER at 2104. Alert & oriented. Assisted with changing into hospital gown. Says he had labs drawn at home today by home health nurse and was called to come to the hospital for abnormal labs. Says has had some issues with kidney function in the past but had improved. Received IV Lasix in the ER. Instructend on using urinal so I&O can be monitored. Denies pain. Has dry calloused skin to bilat feet. Diabetic ulcer to left heel that he says is treated by wound clinic and home health nurses. Tells me he has had it for 5 years and was debrided in past. Wound looks clean. Dressing was off. Was cleansed with NS and Optifoam dressing applied. Will change tomorrow and obtain dressing as ordered. quality assurance monitor applied. Oriented to room. RN to complete admission assessment
[2022-04-16] MEDS: heparin 5,000 unit/mL INJ 1 mL 5000 UNIT SUBCUT (22:14)
[2022-04-17] VITALS (11 sets, daily range): BP systolic 143–168; BP diastolic 58–92; PULSE 60–72; RESP 16–17; TEMP 36.3–36.6; O2SAT 94–98
[2022-04-17 00:17] LABS: Base Excess VBG -1.5 mmol/L (-3.0-3.0); Blood Gas Allen Test Pos; Blood Gas Operator Identificat WALCI; Blood Gas Sample Type Venous; HCO3 VBG 23.4 mmol/L (24-28); Venous Blood Gas Hematocrit 44.2 % (42-52); pH VBG 7.39 (7.32-7.42)
[2022-04-17 00:26] LABS: Add Urine Microscopic? YES; Bilirubin Urine Neg (Negative); Blood Urine Neg (Negative); Glucose Urine UA 1+ (Normal); Ketones Urine Negative (Negative); Leukocyte Esterase Urine Negative (Negative); Nitrate Urine Negative (Negative); Protein Urine 1+ (Negative); Specific Gravity, Urine 1.005 (1.005-1.030); Urine Appearance Clear (CLEAR); Urine Color Colorless (Yellow); Urobilinogen Urine Norm (Negative); pH Urine 7 (5-7)
[2022-04-17 00:27] LABS: Add Urine Culture? No; Bacteria Urine TRACE /hpf; RBC Urine 0-4 /hpf (0-2); Squamous Epithelial Cell Urine 0-4 /hpf (0-5); WBC Urine 0-4 /hpf (0-5)
[2022-04-17 00:33] LABS: Urine Creatinine 18 mg/dL (39-259); Urine Random Sodium 122 mmol/L
[2022-04-17 01:01] LABS: Basophils # 0.1 10^3/uL (0.0-0.1); Eosinophils # 0.4 10^3/uL (0.0-0.8); Eosinophils % 5.2 %; Hematocrit 41.5 % (42.0-52.0); Hemoglobin 13.6 g/dL (11.7-16.6); Lymphocytes # 1.7 10^3/uL (0.8-4.8); Lymphocytes % 20.8 %; Mean Corpuscular HGB Conc 32.8 g/dL (30.0-36.0); Mean Corpuscular Hemoglobin 26.7 pg (28.0-34.0); Mean Corpuscular Volume 81.5 fl (80-94); Monocytes # 0.8 10^3/uL (0.2-0.9); Monocytes % 10.2 %; Neutrophils % 62.4 %; Nucleated Red Blood Cells % 0 %; Platelet Count 226 10^3/cmm (130-400); Red Blood Count 5.09 10^6/uL (4.1-5.3); Red Cell Distribution Width 14.8 % (12.1-15.1)
[2022-04-17 01:20] LABS: Ketone (Acetest) Serum Negative (Negative)
[2022-04-17 01:29] LABS: Alanine Aminotransferase 9 U/L (0-41); Albumin Level 3.2 g/dL (3.5-5.2); Alkaline Phosphatase 195 IU/L (40-130); Anion Gap 15.9 (5-19); Aspartate Amino Transferase 16 U/L (0-40); Blood Urea Nitrogen 27 mg/dL (6-20); Calcium 9.1 mg/dL (8.5-10.5); Carbon Dioxide 24 mmol/L (22-29); Chloride 101 mmol/L (98-107); Globulin 3.7 g/dL (1.3-4.6); Glucose 140 mg/dL (65-115); Osmolality Calculated 289 mOsm/kg (285-295); Potassium 4.9 mmol/L (3.5-5.1); Sodium 136 mmol/L (136-145); Total Bilirubin 0.3 mg/dL (0.15-1.2); Total Protein 6.9 g/dL (6.6-8.7)
[2022-04-17] MEDS: heparin 5,000 unit/mL INJ 1 mL 5000 UNIT SUBCUT ×3 (05:26→21:32)
[2022-04-17 06:52] LABS: Glucose Point of Care 110 mg/dL (70-110)
[2022-04-17] MEDS: aspirin 81 mg Chew Tablet PO (08:50)
[2022-04-17] MEDS: atorvastatin 40 mg Tablet 80 MG PO (08:50)
[2022-04-17] MEDS: gabapentin 300 mg Capsule PO (08:50)
[2022-04-17] MEDS: metoprolol tartrate 50 mg Tablet 100 MG PO ×2 (08:50→17:39)
[2022-04-17] MEDS: pregabalin 100 mg Capsule 200 MG PO (08:50)
[2022-04-17] MEDS: amlodipine 10 mg Tablet PO (08:50)
[2022-04-17] MEDS: pantoprazole DR 40 mg Tablet PO (08:50)
--- NOTE | 2022-04-17 11:23 | PM.PN ---
Subjective Subjective: This morning patient endorsing feeling better He does have home health services, follows up with wound care clinic weekly He is due to see Dr. Weinstein outpatient Patient uses boots and a walker to ambulate at home, he lives alone, he eats mostly frozen meals Vitals/I&O/Wt Last Vital Signs Temp 97.5 F L 04/17/22 07:38 Pulse 68 04/17/22 08:00 Resp 16 04/17/22 08:00 BP 155/89 04/17/22 07:38 Pulse Ox 98 04/17/22 08:00 04/16/22 04/17/22 04/17/22 22:59 06:59 14:59 Intake Total 120 / 120 300 / 420 360 / 360 Output Total 2400 / 2400 1100 / 1100 Balance 120 / 120 -2100 / -1980 -740 / -740 Weight last 48 hrs Weight 134.717 kg Weight 132.903 kg Physical Exam Narrative: Patient is comfortable in his bed Saturating well on room air His heel ulcer does not look infected no signs of cellulitis, good granulation tissue Nonfocal neuro exam Morbidly obese Abdomen soft S1, S2 No audible stridor or wheezing Data : 04/17/22 00:11 04/17/22 00:11 A&P Assessment and plan (1) Acute kidney injury superimposed on CKD: Status: Acute (2) Acute hyperkalemia: Status: Acute (3) Chronic osteomyelitis: Status: Acute (4) 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: Status: Acute (5) Uncontrolled type 2 diabetes with neuropathy: Status: Acute (6) Hyperlipidemia: Status: Acute (7) Onychomycosis of nail of digit of hand: Status: Acute Plan Acute on chronic kidney disease stage IV I would advise against olmesartan and metformin Creatinine is stable at 2.5, potassium is improved No need of dialysis Baseline creatinine seems to be around 1.7-2.1 With worsening creatinine and GFR he should also be careful with his pregabalin Patient is stating that he has an appoint with Dr. Weinstein outpatient Check BnP, no acidosis, Hyperkalemia: Improved Noncompliant with his diet, patient eats mostly frozen meals at home, hemoglobin A1c 9.6 Patient is full code Diabetic diet Currently euglycemic Diabetic foot ulcer, follows up with wound care is on weekly basis has home health services, I would use offloading dressing, his wound does not look infected, it has good pink granulation tissue healthy looking no signs of infection Attestations Medical Necessity Statement*: Discharge tomorrow Time Spent in Patient Care: 30 Coding Level of Care Code Acute Roller Inspector And Mender for g Fwd Diagnoses Acute kidney injury superimposed on CKD N17.9; N18.9 Acute hyperkalemia E87.5 Chronic osteomyelitis M86.60 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 E11.22 Uncontrolled type 2 diabetes with neuropathy E11.40; E11.65 Hyperlipidemia E78.5 Onychomycosis of nail of digit of hand B35.1
[2022-04-17 11:55] LABS: Glucose Point of Care 302 mg/dL (70-110)
[2022-04-17 12:09] LABS: NT Pro B Type Natriuretic Pept 2271 pg/mL (0-125)
[2022-04-17] MEDS: FUROsemide 20 mg Tablet PO (12:18)
[2022-04-17] MEDS: insulin lispro 100 unit/1 mL SUBCUT ×3 (12:18→21:32)
[2022-04-17 17:08] LABS: Glucose Point of Care 247 mg/dL (70-110)
[2022-04-17 20:49] LABS: Glucose Point of Care 345 mg/dL (70-110)
--- NOTE | 2022-04-17 21:30 | US_ITS ---
WS: [id number] ULTRASOUND RENAL TECHNIQUE: Ultrasound examination of both kidneys. CLINICAL INFORMATION: ARJUN on CKD COMPARISON: October 30, 2021 FINDINGS: Technically difficult study due to body habitus. RIGHT: Right kidney is normal in size and appearance. Echogenicity: Normal. Cortical thickness: 0.9 cm; Normal. Hydronephrosis: None. Perinephric fluid: None. Right kidney measures: 10.0 cm x 4.5 cm x 4.0 cm. LEFT: Mild LEFT renal cortical atrophy Echogenicity: Normal. Cortical thickness: 0.7 cm Hydronephrosis: None. Perinephric fluid: None. Left kidney measures: 10.1 cm x 4.5 cm x 4.7 cm. Aorta not seen due to bowel gas. IMPRESSION: Technically difficult study due to bowel gas and body habitus. 1. No hydronephrosis in either kidney. 2. Mild LEFT renal cortical atrophy. 3. RIGHT lower pole renal cyst measuring 1.1 x 1.2 x 1.2 cm 4. Prevoid Bladder volume 320 cc .
[2022-04-18] VITALS (7 sets, daily range): BP systolic 120–144; BP diastolic 71–80; PULSE 54–72; RESP 16–18; TEMP 36.1–36.4; O2SAT 95–96
[2022-04-18 02:58] LABS: Anion Gap 14.9 (5-19); Blood Urea Nitrogen 32 mg/dL (6-20); Calcium 8.7 mg/dL (8.5-10.5); Carbon Dioxide 23 mmol/L (22-29); Chloride 98 mmol/L (98-107); Glucose 223 mg/dL (65-115); Osmolality Calculated 286 mOsm/kg (285-295); Potassium 4.9 mmol/L (3.5-5.1); Sodium 131 mmol/L (136-145)
[2022-04-18] MEDS: heparin 5,000 unit/mL INJ 1 mL 5000 UNIT SUBCUT (05:12)
[2022-04-18 06:32] LABS: Glucose Point of Care 148 mg/dL (70-110)
--- NOTE | 2022-04-18 06:53 | PM.DCS ---
Discharge Providers Date of Admission: 04/16/22 21:33 Date of Discharge: April 18, 2022 Attending Provider at Admission: Indio Burroughs Attending Provider at Discharge: Abisai Maddox MD Primary Care Provider: SERAFIN Reza Diagnoses at Discharge Discharge Diagnosis (1) Acute kidney injury superimposed on CKD: Status: Acute (2) Acute hyperkalemia: Status: Acute (3) Chronic osteomyelitis: Status: Acute (4) 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: Status: Acute (5) Uncontrolled type 2 diabetes with neuropathy: Status: Acute (6) Hyperlipidemia: Status: Acute (7) Onychomycosis of nail of digit of hand: Status: Acute Reason for Visit Reason for Visit: abnormal labs Hospital Course Hospital Course 52-year-old male who was admitted to the hospital for his worsening of hyperkalemia and creatinine. Patient has type 2 diabetes, does not follow sodium or calorie restricted diet, lives alone, uses a walker with his boots to ambulate, follows up with wound care clinic on weekly basis, also has home health services for wound care, his hyperkalemia was improved with medical management, creatinine remained stable at 2.5. Patient is stating that he has an appointment with Dr. Weinstein outpatient. He needs adjustment in his medications. He should not take lisinopril or losartan at this point, metformin should be discontinued as well. Dose of pregabalin and gabapentin should be reduced Medication discontinued olmesartan, potassium supplements and metformin Lyrica dose was reduced to 100 mg twice daily I have reduced the dose of metoprolol as well because of his heart rate, his heart rate is staying around 65-70 Physical Exam Narrative: He will also showing good granulation tissue no active sign of cellulitis Does not need debridement Morbid obese Awake and alert Saturating well on room air S1, S2 Pleasant and cooperative Nonfocal neuro exam Discharge Data Studies Completed and Pending Completed Studies During Hospitalization Category Date Time Status US renal BI* [id number] Routine Ultrasound 04/17/22 21:30 Completed Pending at discharge Category Date Time Status VBG [Venous Blood Gas] Routine Lab 04/16/22 00:11 Results Laboratory Results WBC 8.0 10^3/uL (4.0-10.0) 04/17/22 00:11 RBC 5.09 10^6/uL (4.1-5.3) 04/17/22 00:11 Hgb 13.6 g/dL (11.7-16.6) 04/17/22 00:11 Hct 41.5 % (42.0-52.0) L 04/17/22 00:11 MCV 81.5 fl (80-94) D 04/17/22 00:11 MCH 26.7 pg (28.0-34.0) L 04/17/22 00:11 MCHC 32.8 g/dL (30.0-36.0) D 04/17/22 00:11 RDW 14.8 % (12.1-15.1) 04/17/22 00:11 Plt Count 226 10^3/cmm (130-400) 04/17/22 00:11 MPV 13.0 fL (7.4-10.4) H 04/17/22 00:11 Neut % (Auto) 62.4 % 04/17/22 00:11 Lymph % (Auto) 20.8 % 04/17/22 00:11 [place] % (Auto) 10.2 % 04/17/22 00:11 Eos % (Auto) 5.2 % 04/17/22 00:11 Baso % (Auto) 1.0 % 04/17/22 00:11 Neut # (Auto) 5.00 10^3/uL (1.8-7.7) 04/17/22 00:11 Lymph # (Auto) 1.7 10^3/uL (0.8-4.8) 04/17/22 00:11 [place] # (Auto) 0.8 10^3/uL (0.2-0.9) 04/17/22 00:11 Eos # (Auto) 0.4 10^3/uL (0.0-0.8) 04/17/22 00:11 Baso # (Auto) 0.1 10^3/uL (0.0-0.1) 04/17/22 00:11 Nucleated RBC % (auto) 0 % 04/17/22 00:11 Nucleated RBCs # 0.0 /100WBC 04/17/22 00:11 Specimen Type Venous 04/17/22 00:21 Pedro Test Pos 04/17/22 00:21 VBG pH 7.39 (7.32-7.42) 04/17/22 00:21 VBG pCO2 39.0 mmHg (41-51) L 04/17/22 00:21 VBG pO2 53.0 mmHg (25-40) H 04/17/22 00:21 VBG HCO3 23.4 mmol/L (24-28) L 04/17/22 00:21 VBG Base Excess -1.5 mmol/L (-3.0-3.0) 04/17/22 00:21 VBG Hematocrit 44.2 % (42-52) 04/17/22 00:21 FiO2 21.0 % 04/17/22 00:21 American History Professor ID Walci 04/17/22 00:21 Sodium 131 mmol/L (136-145) L 04/18/22 02:24 Potassium 4.9 mmol/L (3.5-5.1) 04/18/22 02:24 Chloride 98 mmol/L (98-107) 04/18/22 02:24 Carbon Dioxide 23 mmol/L (22-29) 04/18/22 02:24 Anion Gap 14.9 (5-19) 04/18/22 02:24 BUN 32 mg/dL (6-20) H 04/18/22 02:24 Creatinine 2.5 mg/dL (0.7-1.2) H 04/18/22 02:24 GFR Calculation 27.0 mL/min (90-130) L 04/18/22 02:24 Glucose 223 mg/dL (65-115) H 04/18/22 02:24 POC Glucose 148 mg/dL (70-110) H 04/18/22 06:12 Calculated Osmolality 286 mOsm/kg (285-295) 04/18/22 02:24 Calcium 8.7 mg/dL (8.5-10.5) 04/18/22 02:24 Magnesium 2.0 mg/dL (1.7-2.3) 04/16/22 18:40 Total Bilirubin 0.3 mg/dL (0.15-1.2) 04/17/22 00:11 AST 16 U/L (0-40) 04/17/22 00:11 ALT 9 U/L (0-41) 04/17/22 00:11 Alkaline Phosphatase 195 IU/L (40-130) H 04/17/22 00:11 NT-Pro-B Natriuret Pep 2271 pg/mL (0-125) H 04/17/22 00:11 Total Protein 6.9 g/dL (6.6-8.7) 04/17/22 00:11 Albumin 3.2 g/dL (3.5-5.2) L 04/17/22 00:11 Globulin 3.7 g/dL (1.3-4.6) 04/17/22 00:11 Urine Color Colorless (Yellow) 04/17/22 00:13 Urine Appearance Clear (CLEAR) 04/17/22 00:13 Urine pH 7 (5-7) 04/17/22 00:13 Ur Specific [place] 1.005 (1.005-1.030) 04/17/22 00:13 Urine Protein 1+ (Negative) H 04/17/22 00:13 Urine Glucose (UA) 1+ (Normal) H 04/17/22 00:13 Urine Ketones Negative (Negative) 04/17/22 00:13 Urine Blood Neg (Negative) 04/17/22 00:13 Urine Nitrate Negative (Negative) 04/17/22 00:13 Urine Bilirubin Neg (Negative) 04/17/22 00:13 Urine Urobilinogen Norm mg/dL (Negative) 04/17/22 00:13 Ur Leukocyte Esterase Negative (Negative) 04/17/22 00:13 Urine RBC 0-4 /hpf (0-2) H 04/17/22 00:13 Urine WBC 0-4 /hpf (0-5) H 04/17/22 00:13 Ur Squamous Epith Cells 0-4 /hpf (0-5) H 04/17/22 00:13 Amorphous Sediment Not Reportable 04/17/22 00:13 Urine Bacteria Trace /hpf (NONE) 04/17/22 00:13 Ur Random Sodium 122 mmol/L 04/17/22 00:13 Urine Creatinine 18 mg/dL (39-259) L 04/17/22 00:13 Serum Ketones Negative (Negative) 04/16/22 00:11 Vitals Last Vital Signs Temp 97 F L 04/18/22 04:00 Pulse 61 04/18/22 05:37 Resp 16 04/18/22 04:00 BP 136/80 04/18/22 04:00 Pulse Ox 95 04/18/22 04:00 Discharge Plan Discharge Patient Disposition: Home Health Service Condition: Stable Prescriptions: Continued amlodipine 10 mg tablet 10 mg PO DAILY 0RF atorvastatin 80 mg tablet 80 mg PO DAILY 0RF gabapentin 300 mg capsule 300 mg PO DAILY 0RF cyanocobalamin (vitamin B-12) 1,000 mcg/mL Solution 1,000 mcg IM Q30D 0RF aspirin 81 mg Tablet,Chewable 81 mg PO DAILY 0RF insulin lispro [Humalog KwikPen Insulin] 100 unit/mL insulin pen See Rx Instructions .ROUTE .COMPLEX Qty: 0 0RF Rx Instructions: Inject, subcu, 3 times daily, after meals, based on sliding scale provided fluticasone propion-salmeterol [Advair Diskus] 100-50 mcg/dose blister with device 1 inh inhalation BID Qty: 60 0RF albuterol sulfate 90 mcg/actuation HFA aerosol inhaler 1 inh inhalation Q6H PRN (Reason: shortness of breath or wheezing) Qty: 8.5 0RF omeprazole 40 mg capsule,delayed release(DR/EC) 40 mg PO DAILY 0RF Humalog U-100 Insulin 100 unit/mL solution See Rx Instructions .ROUTE .COMPLEX 0RF Rx Instructions: 5-7 units per sliding scale Levemir FlexTouch U-100 Insuln 100 unit/mL (3 mL) insulin pen 52 unit SUBCUT BID 0RF Changed Lyrica 200 mg capsule 100 mg PO BID Qty: 0 0RF metoprolol tartrate 100 mg Tablet 25 mg PO BID Qty: 0 0RF Discontinued olmesartan 20 mg tablet 20 mg PO DAILY 0RF metformin 500 mg tablet 50 mg PO BID 0RF Discharge Orders: Discharge Order (Routine); Ordered 04/18/22 Ordered By: Abisai Maddox Referrals: [facility] [place] Home Care ([facility]) [Outside] Vidhi Gillette FNP [Primary Care Provider] - 04/20/22 2:30 pm Jake Weinstein MD [Referring] - 1-3 days (Referral sent to the clinic in [place]) Patient Instructions: Acute Kidney Injury (GEN), Hyperkalemia (GEN), Opioid Safety Activity Restrictions/Additional Instructions: Please do not take potassium some olmesartan and metformin I have also reduced the dose of metoprolol to 25 mg twice daily because of your heart rate staying in 60s. Please follow-up with Dr. Weinstein and your PCP Discharge Attestations Time Spent in Discharge Care*: less than 30 min Quality Metrics Clinical Quality Measures [ No reported AMI, CVA or VTE this stay] Coding Level of Care Code Acute Chg FW DC note Diagnoses Acute kidney injury superimposed on CKD N17.9; N18.9 Acute hyperkalemia E87.5 Chronic osteomyelitis M86.60 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 E11.22 Uncontrolled type 2 diabetes with neuropathy E11.40; E11.65 Hyperlipidemia E78.5 Onychomycosis of nail of digit of hand B35.1
[2022-04-18] MEDS: atorvastatin 40 mg Tablet 80 MG PO (08:30)
[2022-04-18] MEDS: amlodipine 10 mg Tablet PO (08:33)
[2022-04-18] MEDS: aspirin 81 mg Chew Tablet PO (08:34)
[2022-04-18] MEDS: gabapentin 300 mg Capsule PO (08:34)
[2022-04-18] MEDS: pantoprazole DR 40 mg Tablet PO (08:34)
[2022-04-18] MEDS: insulin lispro 100 unit/1 mL SUBCUT (08:35)
[2022-04-18 11:38] LABS: Glucose Point of Care 332 mg/dL (70-110)
== END 2022-04-18 11:55 | disposition home health service (06) ==
LOC: ER 20:08 → MEDSURG 21:44
PROVIDERS: Emergency Medicine; Admitting Provider Internal Medicine; Emergency Provider Emergency Medicine; PCP Nurse Practitioner Family; Visit Provider Internal Medicine
DX: N17.9 Acute kidney failure, unspecified (principal); E11.22 Type 2 diabetes mellitus with diabetic chronic kidney disease; N18.4 Chronic kidney disease, stage 4 (severe); E87.5 Hyperkalemia; M86.60 Other chronic osteomyelitis, unspecified site; E11.40 Type 2 diabetes mellitus with diabetic neuropathy, unspecified; E11.65 Type 2 diabetes mellitus with hyperglycemia; E78.5 Hyperlipidemia, unspecified; Z79.82 Long term (current) use of aspirin; B35.1 Tinea unguium; E66.01 Morbid (severe) obesity due to excess calories; Z68.41 Body mass index [BMI] 40.0-44.9, adult; Z79.4 Long term (current) use of insulin; Z91.11 Patient's noncompliance with dietary regimen; E11.621 Type 2 diabetes mellitus with foot ulcer; I45.10 Unspecified right bundle-branch block
CPT/HCPCS: 36415; 36416; 76770; 80048; 80053; 80061; 81001; 82009; 82570; 82803; 82962; 83036; 83735; 83880; 84300; 85025; 93005; 94640; 96372; 96374; 99285; G0378; J1644; J1815; J1940

== ENCOUNTER → 2022-04-19 08:14 | Outpatient (BNVA) | payer MEDICARE, MEDICAID, SELFPAY | PROVIDERS: PCP Nurse Practitioner Family; Visit Provider Nurse Practitioner Family | DX: E11.621 Type 2 diabetes mellitus with foot ulcer (principal); L97.423 Non-pressure chronic ulcer of left heel and midfoot with necrosis of muscle; I96 Gangrene, not elsewhere classified | CPT/HCPCS: 11042; A6197; A6252 ==

== ENCOUNTER → 2022-04-23 10:19 | Outpatient (BNVA) | payer MEDICARE, MEDICAID, SELFPAY | PROVIDERS: PCP Nurse Practitioner Family; Visit Provider Internal Medicine | DX: E11.22 Type 2 diabetes mellitus with diabetic chronic kidney disease (principal); E11.40 Type 2 diabetes mellitus with diabetic neuropathy, unspecified; E11.65 Type 2 diabetes mellitus with hyperglycemia; N18.30 Chronic kidney disease, stage 3 unspecified; E87.5 Hyperkalemia; E78.5 Hyperlipidemia, unspecified; L98.494 Non-pressure chronic ulcer of skin of other sites with necrosis of bone; Z79.4 Long term (current) use of insulin | CPT/HCPCS: 99214 ==

== ENCOUNTER 2022-04-24 18:07 | Outpatient (CLI) | payer MEDICARE, MEDICAID, SELFPAY ==
[2022-04-24 18:29] LABS: Basophils # 0.1 10^3/uL (0.0-0.1); Eosinophils # 0.4 10^3/uL (0.0-0.8); Eosinophils % 4.5 %; Hematocrit 44.7 % (42.0-52.0); Hemoglobin 14.3 g/dL (11.7-16.6); Lymphocytes % 21.5 %; Mean Corpuscular Hemoglobin 27.1 pg (28.0-34.0); Mean Corpuscular Volume 84.8 fl (80-94); Monocytes # 0.6 10^3/uL (0.2-0.9); Neutrophils # 5.94 10^3/uL (1.8-7.7); Neutrophils % 65.4 %; Nucleated Red Blood Cells % 0 %; Platelet Count 270 10^3/cmm (130-400); Red Blood Count 5.27 10^6/uL (4.1-5.3); Red Cell Distribution Width 15.4 % (12.1-15.1); White Blood Count 9.1 10^3/uL (4.0-10.0)
[2022-04-24 18:53] LABS: Chol HDL Ratio 5.96 mg/dL (1.0-5.00); Cholesterol 161 mg/dL (0-200); HDL Cholesterol 27 mg/dL (60-100); LDL Cholesterol Calculated 59 mg/dL (50-129); LDL HDL Ratio 2.19 RATIO (0.00-3.22); Triglycerides 373 mg/dL (0-150)
[2022-04-24 19:05] LABS: Slide Review Slide Review Perform
[2022-04-24 19:06] LABS: Mean Platelet Volume 13.2 fL (7.4-10.4)
[2022-04-24 20:25] LABS: Estmated Average Glucose 226; Hemoglobin A1C 9.5 % (4.0-6.0)
== END 2022-04-24 18:08 | disposition home or self-care (01) ==
LOC: LAB 18:08
PROVIDERS: PCP Nurse Practitioner Family; Visit Provider Internal Medicine
DX: E11.621 Type 2 diabetes mellitus with foot ulcer (principal); E11.40 Type 2 diabetes mellitus with diabetic neuropathy, unspecified; E11.65 Type 2 diabetes mellitus with hyperglycemia; E78.5 Hyperlipidemia, unspecified
CPT/HCPCS: 80061; 83036; 85025

== ENCOUNTER → 2022-04-26 07:57 | Outpatient (BNVA) | payer MEDICARE, MEDICAID, SELFPAY | PROVIDERS: PCP Nurse Practitioner Family; Visit Provider Nurse Practitioner Family | DX: E11.621 Type 2 diabetes mellitus with foot ulcer (principal); L97.423 Non-pressure chronic ulcer of left heel and midfoot with necrosis of muscle; I96 Gangrene, not elsewhere classified | CPT/HCPCS: 11042; A6197; A6252 ==

== ENCOUNTER → 2022-05-03 08:02 | Outpatient (BNVA) | payer MEDICARE, MEDICAID, SELFPAY | PROVIDERS: PCP Nurse Practitioner Family; Visit Provider Nurse Practitioner Family | DX: I96 Gangrene, not elsewhere classified (principal); E11.621 Type 2 diabetes mellitus with foot ulcer; L97.423 Non-pressure chronic ulcer of left heel and midfoot with necrosis of muscle | CPT/HCPCS: 11042; A6197; A6252 ==

== ENCOUNTER → 2022-05-10 08:09 | Outpatient (BNVA) | payer MEDICARE, MEDICAID, SELFPAY | PROVIDERS: PCP Nurse Practitioner Family; Visit Provider Nurse Practitioner Family | DX: E11.621 Type 2 diabetes mellitus with foot ulcer (principal); L97.423 Non-pressure chronic ulcer of left heel and midfoot with necrosis of muscle; I96 Gangrene, not elsewhere classified | CPT/HCPCS: 11042; A6197; A6252 ==

== ENCOUNTER 2022-05-16 16:43 | Emergency (ER) | payer MEDICARE, MEDICAID, SELFPAY ==
[2022-05-16 17:02] VITALS: BP 150/82; PULSE 108; RESP 18; TEMP 36.8; O2SAT 93; BMI 35.1
--- NOTE | 2022-05-16 17:29 | XRR_ITS ---
PROCEDURE INFORMATION: Exam: XR Chest Exam date and time: 05/16/2022 5:44 PM Age: 56 years old Clinical indication: Shortness of breath; Additional info: Fever TECHNIQUE: Imaging protocol: Radiologic exam of the chest. Views: 1 view. COMPARISON: CT chest con [id number] 10/30/2021 12:18 PM FINDINGS: Limitations: The study is made with less than full inspiration. Lungs: Visualized portions of the lungs are clear. Pleural spaces: Unremarkable. No pleural effusion. No pneumothorax. Heart/Mediastinum: Heart is within normal limits of size. Bones/joints: Unremarkable. XR/XR chest 1V portable [id number] IMPRESSION: No acute infiltrate.
[2022-05-16 19:03] LABS: Basophils # 0.1 10^3/uL (0.0-0.1); Basophils % 0.4 %; Hematocrit 37.2 % (42.0-52.0); Hemoglobin 11.9 g/dL (11.7-16.6); Lymphocytes # 1.1 10^3/uL (0.8-4.8); Lymphocytes % 6.5 %; Mean Corpuscular Volume 84.5 fl (80-94); Mean Platelet Volume 11.9 fL (7.4-10.4); Monocytes # 1.4 10^3/uL (0.2-0.9); Monocytes % 8.8 %; Neutrophils # 13.35 10^3/uL (1.8-7.7); Neutrophils % 83.2 %; Nucleated Red Blood Cells % 0 %; Platelet Count 255 10^3/cmm (130-400); Red Cell Distribution Width 15.7 % (12.1-15.1)
[2022-05-16 19:14] LABS: Lactic Sepsis W/Reflex 0.8 mmol/L (0.5-2.2)
[2022-05-16 19:23] LABS: Alanine Aminotransferase 19 U/L (0-41); Albumin Level 2.9 g/dL (3.5-5.2); Alkaline Phosphatase 222 U/L (40-130); Anion Gap 18.6 (5-19); Aspartate Amino Transferase 37 U/L (0-40); Blood Urea Nitrogen 24 mg/dL (6-20); Calcium 8.3 mg/dL (8.5-10.5); Carbon Dioxide 20 mmol/L (22-29); Chloride 99 mmol/L (98-107); Globulin 3.6 g/dL (1.3-4.6); Glucose 303 mg/dL (65-115); Osmolality Calculated 291 mOsm/kg (285-295); Potassium 4.6 mmol/L (3.5-5.1); Sodium 133 mmol/L (136-145); Total Bilirubin 0.6 mg/dL (0.15-1.2); Total Protein 6.5 g/dL (6.6-8.7)
--- NOTE | 2022-05-16 19:34 | W.ED.GENADLT ---
HPI - General Adult General: Chief complaint: COVID symptoms Stated complaint: N/V/D SOB, fever Time Seen by Provider: 05/16/22 19:33 History of Present Illness: Patient is a 56-year-old male with a history of CKD, diabetes, hyperlipidemia presenting to the emergency room for evaluation of diarrhea and generalized weakness. Patient tells me that for the last 5 days, patient has had watery stool that but now is loose. Patient also reports body aches and generalized weakness in that time. Patient denies any cough, runny nose sore throat, abdominal pain, melena/hematochezia. Patient has no complaints. Onset: 5 days ago Duration:5 days Location:home Severity:moderate Associated symptoms: Reports malaise; Deny chest pain, dyspnea, nausea, rash, palpitations or vomiting Review of Systems Const: Reports: chills, body aches, fatigue and malaise; Denies: fever(s) Eyes: Denies: change in vision ENMT: Denies: mouth pain Card: Denies: chest pain or palpitations Resp: Denies: dyspnea or non-productive cough GI: Reports: diarrhea; Denies: abdominal pain, nausea or vomiting : Denies: dysuria Musc: Denies: extremity pain Skin/Breast: Denies: rash or new lesions Neuro: Denies: weakness in extremities Psych: Reports: other (Normal mood) Jarrod/Lymph: Denies: easy bruising PFSH ED PFSH: Medical History Acute kidney injury superimposed on CKD 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 Chronic osteomyelitis Diabetes Hyperlipidemia Neuropathy Onychomycosis of nail of digit of hand Uncontrolled type 2 diabetes with neuropathy Surgical History H/O circumcision H/O colonoscopy 7 yrs ago Status post debridement of ulcer of heel Family History Brother Cancer Sister Lung disease Mother Heart failure Father Chronic kidney failure Denies family history of Anesthesia complication Bleeding disorder Social History Smoking and tobacco status: never smoked Second hand smoke exposure: No Alcohol intake: never Adopted: No Lives independently: Yes Marital status: Single Current occupational status: disabled History of recent travel: No Physical Exam Const: COMMON NORMALS: alert HENMT: COMMON NORMALS: atraumatic HEAD & SCALP: atraumatic MOUTH: moist mucous membranes not abnormal Eye: COMMON NORMALS: EOMs intact bilaterally and conjunctivae normal CONJUNCTIVA: Yes conjunctivae normal Neck/C-Spine: COMMON NORMALS: full ROM and supple Resp: COMMON NORMALS: normal respiratory effort and clear to auscultation bilaterally AUSCULTATION: clear to auscultation bilaterally Cardio: COMMON NORMALS: regular rate RATE: regular rate GI: COMMON NORMALS: Soft to palpation and non-tender PALPATION: Yes Soft to palpation OTHER: No focal TTP. NO guarding rebound, guarding, rigidity. No CVA tenderness to percussion. Neg Davila/Neg McBurney's point tenderness, no suprabupic tenderness to palpation. Extremity: COMMON NORMALS: full ROM Neuro: SENSORIUM/ORIENTATION: Yes alert MOTOR EXAM: No Abnormal motor strength present and Other motor observations present (no focal motor deficits) Psych: COMMON NORMALS: speech normal SPEECH: Yes normal speech MOOD & AFFECT: Yes euthymic mood Course Vital Signs: Vital signs: Vital Signs Temperature 98.5 F 05/16/22 21:19 Pulse Rate 107 H 05/16/22 23:19 Respiratory Rate 18 05/16/22 21:19 Blood Pressure 156/90 05/16/22 23:19 Pulse Oximetry 93 05/16/22 23:19 Oxygen Delivery Me thod 05/16/22 22:12 [facility] - General Adult Medical Decision Making Patient is a 56-year-old male with a history of CKD, diabetes, hyperlipidemia presenting to the emergency room for evaluation of diarrhea and generalized weakness x 4 days.On exam, patient is hemodynamically stable. No focal abdominal tenderness palpation. No guarding or rebound tenderness. Lungs appears to be clear bilaterally. Patient is noted to have white count 16K. Creatinine of 2.5 similar to baseline. Sodium 133. X-ray chest appears to be clear. UA did not show any signs of UTI. It is unclear what is the cause of this leukocytosis. In the setting of diarrhea, I have given patient close follow-up with primary care provider for reassessment in the next 2 days. Patient is given strict return pressure any worsening diarrhea, abdominal pain fever or chills or any other concerns. Patient received IVF reports feeling symptomatically improved. Patient is able to tolerate p.o. without difficulty. Given the fact the patient has no abdominal pain, continues to be enterically stable, reports symptomatic improvement after IVF, I do not suspect the patient has an acute intra-abdominal pathology including SBO, biliary pathology, appendicitis, diverticulitis, or other emergent condition requiring surgery. Should patient have fever or chills, abdominal pain, or urinary symptoms have given patient a prescription for Augmentin. Rx Maalox/pepcid PRN dyspepsia, and zofran PRN nausea/vomiting Disposition: Discharge. Patient counseled regarding diagnostic impression, treatment plan. Patient given ED strict return precautions to return for continuation, worsening, or development of new symptoms. Instructed to f/u w/ PCP regarding symptoms today. Patient verbalized understanding. Lab Data : 05/16/22 18:50 05/16/22 18:50 Radiology Impressions Chest X-Ray 05/16/22 17:29 IMPRESSION: No acute infiltrate. Laboratory Results WBC 16.0 10^3/uL (4.0-10.0) H 05/16/22 18:50 RBC 4.40 10^6/uL (4.1-5.3) 05/16/22 18:50 Hgb 11.9 g/dL (11.7-16.6) 05/16/22 18:50 Hct 37.2 % (42.0-52.0) L 05/16/22 18:50 MCV 84.5 fl (80-94) 05/16/22 18:50 MCH 27.0 pg (28.0-34.0) L 05/16/22 18:50 MCHC 32.0 g/dL (30.0-36.0) 05/16/22 18:50 RDW 15.7 % (12.1-15.1) H 05/16/22 18:50 Plt Count 255 10^3/cmm (130-400) 05/16/22 18:50 MPV 11.9 fL (7.4-10.4) H 05/16/22 18:50 Neut % (Auto) 83.2 % 05/16/22 18:50 Lymph % (Auto) 6.5 % 05/16/22 18:50 [place] % (Auto) 8.8 % 05/16/22 18:50 Eos % (Auto) 0.0 % 05/16/22 18:50 Baso % (Auto) 0.4 % 05/16/22 18:50 Neut # (Auto) 13.35 10^3/uL (1.8-7.7) H 05/16/22 18:50 Lymph # (Auto) 1.1 10^3/uL (0.8-4.8) 05/16/22 18:50 [place] # (Auto) 1.4 10^3/uL (0.2-0.9) H 05/16/22 18:50 Eos # (Auto) 0.0 10^3/uL (0.0-0.8) 05/16/22 18:50 Baso # (Auto) 0.1 10^3/uL (0.0-0.1) 05/16/22 18:50 Nucleated RBC % (auto) 0 % 05/16/22 18:50 Nucleated RBCs # 0.0 /100WBC 05/16/22 18:50 Sodium 133 mmol/L (136-145) L 05/16/22 18:50 Potassium 4.6 mmol/L (3.5-5.1) 05/16/22 18:50 Chloride 99 mmol/L (98-107) 05/16/22 18:50 Carbon Dioxide 20 mmol/L (22-29) L 05/16/22 18:50 Anion Gap 18.6 (5-19) 05/16/22 18:50 BUN 24 mg/dL (6-20) H 05/16/22 18:50 Creatinine 2.5 mg/dL (0.7-1.2) H 05/16/22 18:50 GFR Calculation 27.0 mL/min (90-130) L 05/16/22 18:50 Glucose 303 mg/dL (65-115) H 05/16/22 18:50 POC Glucose 257 mg/dL (70-110) H 05/16/22 19:52 Calculated Osmolality 291 mOsm/kg (285-295) 05/16/22 18:50 Lactic Acid 0.8 mmol/L (0.5-2.2) 05/16/22 18:50 Calcium 8.3 mg/dL (8.5-10.5) L 05/16/22 18:50 Total Bilirubin 0.6 mg/dL (0.15-1.2) 05/16/22 18:50 AST 37 U/L (0-40) 05/16/22 18:50 ALT 19 U/L (0-41) 05/16/22 18:50 Alkaline Phosphatase 222 U/L (40-130) H 05/16/22 18:50 Total Protein 6.5 g/dL (6.6-8.7) L 05/16/22 18:50 Albumin 2.9 g/dL (3.5-5.2) L 05/16/22 18:50 Globulin 3.6 g/dL (1.3-4.6) 05/16/22 18:50 Procalcitonin 0.50 ng/mL (0-0.5) 05/16/22 18:50 Urine Color Yellow (Yellow) 05/16/22 21:07 Urine Appearance Clear (CLEAR) 05/16/22 21:07 Urine pH 5 (5-7) 05/16/22 21:07 Ur Specific [place] 1.020 (1.005-1.030) 05/16/22 21:07 Urine Protein 3+ (Negative) H 05/16/22 21:07 Urine Glucose (UA) 4+ (Normal) H 05/16/22 21:07 Urine Ketones 1+ (Negative) H 05/16/22 21:07 Urine Blood 2+ (Negative) H 05/16/22 21:07 Urine Nitrate Negative (Negative) 05/16/22 21:07 Urine Bilirubin Neg (Negative) 05/16/22 21:07 Urine Urobilinogen Norm mg/dL (Negative) 05/16/22 21:07 Ur Leukocyte Esterase Negative (Negative) 05/16/22 21:07 Urine RBC 5-10 /hpf (0-2) H 05/16/22 21:07 Urine WBC 0-4 /hpf (0-5) H 05/16/22 21:07 Ur Squamous Epith Cells 0-4 /hpf (0-5) H 05/16/22 21:07 Amorphous Sediment 2+ /hpf 05/16/22 21:07 Urine Bacteria None /hpf (NONE) 05/16/22 21:07 Hyaline Casts 0-4 /lpf H 05/16/22 21:07 Fine Granular Casts 5-10 /lpf H 05/16/22 21:07 Coronavirus 229E (PCR) Not detected (NOT DETECT) 05/16/22 19:02 SARS-CoV-2 (PCR) Not detected (NOT DETECT) 05/16/22 19:02 Imaging Data Other Imaging: Radiologist's impression: [facility] [address] [place] [address] XRay Report Signed Patient: Tim Robison Unit #: [id number] : 1965 Age/Sex: 56 / M ADM Date: 05/16/22 Loc: ER Room/Bed: Attending Dr: Ordering Provider/Ordering MD: Marianne Marcelo Date of Service: 05/16/22 Procedure(s): XR chest 1V portable [id number] Accession Number(s): [id number] Report Number: [id number] PROCEDURE INFORMATION: Exam: XR Chest Exam date and time: 05/16/2022 5:44 PM Age: 56 years old Clinical indication: Shortness of breath; Additional info: Fever TECHNIQUE: Imaging protocol: Radiologic exam of the chest. Views: 1 view. COMPARISON: CT chest [facility] [id number] 10/30/2021 12:18 PM FINDINGS: Limitations: The study is made with less than full inspiration. Lungs: Visualized portions of the lungs are clear. Pleural spaces: Unremarkable. No pleural effusion. No pneumothorax. Heart/Mediastinum: Heart is within normal limits of size. Bones/joints: Unremarkable. XR/XR chest 1V portable [id number] IMPRESSION: No acute infiltrate. ? Dictated By: Marco Arthur Signed By: Marco Arthur Signed Date/Time: 05/16/221815 DD/ 1744 Discharge Plan Discharge Patient Disposition: Home Clinical Impression: Diarrhea, Body aches Condition: Stable Prescriptions: New Maalox Advanced 1,000-60 mg tablet,chewable 1 tab PO TID PRN (Reason: abdominal pain) 7 Days Qty: 21 0RF Pepcid 20 mg tablet 20 mg PO BID PRN (Reason: abdominal pain) 10 Days Qty: 20 0RF ondansetron 4 mg tablet,disintegrating 4 mg PO TID PRN (Reason: nausea and vomiting) 4 Days Qty: 12 0RF amoxicillin-pot clavulanate 875-125 mg tablet 1 tab PO BID 7 Days Qty: 14 0RF No Action amlodipine 10 mg tablet 10 mg PO DAILY atorvastatin 80 mg tablet 80 mg PO DAILY gabapentin 300 mg capsule 300 mg PO DAILY (DME) Dexcom G6 Sensor Device See Rx Instructions .Route Qty: 9 3RF Rx Instructions: As directed (DME) Dexcom G6 Roller Hand Misc See Rx Instructions .Route Qty: 1 0RF Rx Instructions: As directed (DME) Dexcom G6 Transmitter Device See Rx Instructions .Route Qty: 3 3RF Rx Instructions: As directed cyanocobalamin (vitamin B-12) 1,000 mcg/mL Solution 1,000 mcg IM Q30D aspirin 81 mg Tablet,Chewable 81 mg PO DAILY insulin lispro [Humalog KwikPen Insulin] 100 unit/mL insulin pen See Rx Instructions .ROUTE .COMPLEX Qty: 0 0RF Rx Instructions: Inject, subcu, 3 times daily, after meals, based on sliding scale provided fluticasone propion-salmeterol [Advair Diskus] 100-50 mcg/dose blister with device 1 inh inhalation BID Qty: 60 0RF albuterol sulfate 90 mcg/actuation HFA aerosol inhaler 1 inh inhalation Q6H PRN (Reason: shortness of breath or wheezing) Qty: 8.5 0RF omeprazole 40 mg capsule,delayed release(DR/EC) 40 mg PO DAILY Humalog U-100 Insulin 100 unit/mL solution See Rx Instructions .ROUTE .COMPLEX Rx Instructions: 5-7 units per sliding scale Levemir FlexTouch U-100 Insuln 100 unit/mL (3 mL) insulin pen 52 unit SUBCUT BID Lyrica 200 mg capsule 100 mg PO BID Qty: 0 0RF metoprolol tartrate 100 mg Tablet 25 mg PO BID Qty: 0 0RF Discharge Orders: Discharge ED (Routine); Ordered 05/16/22 Ordered By: Tucker Waldron Referrals: Vidhi Gillette FNP [Primary Care Provider] - Discharge Diet: Advance as tolerated Discharge Activity: Increase activity as tolerated Patient Instructions: Acute Diarrhea (ED) Activity Restrictions/Additional Instructions: Please come back if you have any worsening abdominal pain, fever or chills, nausea or vomiting, diarrhea, blood in the stool, inability hold down liquid or solids, or any new concerning complaints. Coding Level of Care Code ED Paintless Dent Repair Technician for Chg Fwd Exam Comprehensive
[2022-05-16 19:39] VITALS: O2SAT 92
[2022-05-16 19:46] VITALS: BP 157/78; PULSE 95; RESP 19; TEMP 37.2; O2SAT 94
[2022-05-16 19:55] LABS: Glucose Point of Care 257 mg/dL (70-110)
[2022-05-16 21:19] VITALS: BP 159/78; PULSE 98; RESP 18; TEMP 36.9; O2SAT 94
[2022-05-16 21:30] LABS: Add Urine Microscopic? YES; Bilirubin Urine Neg (Negative); Blood Urine 2+ (Negative); Glucose Urine UA 4+ (Normal); Ketones Urine 1+ (Negative); Leukocyte Esterase Urine Negative (Negative); Nitrate Urine Negative (Negative); Protein Urine 3+ (Negative); Urine Appearance Clear (CLEAR); Urine Color Yellow (Yellow); Urobilinogen Urine Norm (Negative); pH Urine 5 (5-7)
[2022-05-16 21:33] LABS: Amorphous Sediment Urine 2+ /hpf; Squamous Epithelial Cell Urine 0-4 /hpf (0-5); WBC Urine 0-4 /hpf (0-5)
[2022-05-16 21:34] LABS: Add Urine Culture? No; Hyaline Casts Urine 0-4 /lpf
[2022-05-16 22:12] VITALS: BP 173/81; PULSE 103; O2SAT 95
[2022-05-16 22:40] LABS: Adenovirus Not Detected (NOT DETECT); Chlamydia Pneumoniae Not Detected (NOT DETECT); Coronavirus 229E,HKU1,NL63,OC4 Not Detected (NOT DETECT); Human Metapneumovirus Not Detected (NOT DETECT); Human Rhinovirus/Enterovirus Not Detected (NOT DETECT); Influenza A Not Detected (NOT DETECT); Influenza A H1 Not Detected (NOT DETECT); Influenza A H1-2009 Not Detected (NOT DETECT); Influenza A H3 Not Detected (NOT DETECT); Influenza B Not Detected (NOT DETECT); Mycoplasma Pneumoniae Not Detected (NOT DETECT); Parainfluenza Virus Type 1 Not Detected (NOT DETECT); Parainfluenza Virus Type 2 Not Detected (NOT DETECT); Parainfluenza Virus Type 3 Not Detected (NOT DETECT); Parainfluenza Virus Type 4 Not Detected (NOT DETECT); Respiratory Syncytial Virus A Not Detected (NOT DETECT); Respiratory Syncytial Virus B Not Detected (NOT DETECT); SARS-COV-2 Not Detected (NOT DETECT)
[2022-05-16 23:19] VITALS: BP 156/90; PULSE 107; O2SAT 93
== END 2022-05-16 23:13 | disposition home or self-care (01) ==
PROVIDERS: Physician Assistant; Emergency Provider Emergency Medicine; PCP Nurse Practitioner Family
DX: R19.7 Diarrhea, unspecified (principal); R52 Pain, unspecified; Z79.82 Long term (current) use of aspirin; Z79.4 Long term (current) use of insulin; E11.22 Type 2 diabetes mellitus with diabetic chronic kidney disease; N18.9 Chronic kidney disease, unspecified; E78.5 Hyperlipidemia, unspecified; Z20.822 Contact with and (suspected) exposure to COVID-19
CPT/HCPCS: 36416; 71045; 80053; 81001; 82962; 83605; 84145; 85025; 87635; 99284

== ENCOUNTER → 2022-05-24 07:55 | Outpatient (BNVA) | payer MEDICARE, MEDICAID, SELFPAY | PROVIDERS: PCP Nurse Practitioner Family; Visit Provider Nurse Practitioner Family | DX: I96 Gangrene, not elsewhere classified (principal); L89.623 Pressure ulcer of left heel, stage 3 | CPT/HCPCS: 11042; A6197; A6251 ==

== ENCOUNTER 2022-05-28 14:02 | Outpatient (CLI) | payer MEDICARE, MEDICAID, SELFPAY ==
[2022-05-28 14:42] LABS: Anion Gap 18.6 (5-19); Blood Urea Nitrogen 22 mg/dL (6-20); Calcium 8.6 mg/dL (8.5-10.5); Carbon Dioxide 22 mmol/L (22-29); Chloride 103 mmol/L (98-107); Glucose 140 mg/dL (65-115); Osmolality Calculated 294 mOsm/kg (285-295); Potassium 4.6 mmol/L (3.5-5.1); Sodium 139 mmol/L (136-145)
== END 2022-05-28 14:03 | disposition home or self-care (01) ==
LOC: LAB 14:03
PROVIDERS: PCP Nurse Practitioner Family; Visit Provider Internal Medicine Nephrology
DX: N18.30 Chronic kidney disease, stage 3 unspecified (principal)
CPT/HCPCS: 80048

== ENCOUNTER → 2022-05-31 08:04 | Outpatient (BNVA) | payer MEDICARE, MEDICAID, SELFPAY | PROVIDERS: PCP Nurse Practitioner Family; Visit Provider Nurse Practitioner Family | DX: I96 Gangrene, not elsewhere classified (principal); E11.621 Type 2 diabetes mellitus with foot ulcer; L97.423 Non-pressure chronic ulcer of left heel and midfoot with necrosis of muscle | CPT/HCPCS: 11042 ==

== ENCOUNTER → 2022-06-07 08:05 | Outpatient (BNVA) | payer MEDICARE, MEDICAID, SELFPAY | PROVIDERS: PCP Nurse Practitioner Family; Visit Provider Nurse Practitioner Family | DX: E11.621 Type 2 diabetes mellitus with foot ulcer (principal); L97.423 Non-pressure chronic ulcer of left heel and midfoot with necrosis of muscle; I96 Gangrene, not elsewhere classified | CPT/HCPCS: 11042; A6197 ==

== ENCOUNTER → 2022-06-13 08:45 | Outpatient (BNVA) | payer MEDICARE, MEDICAID, SELFPAY | PROVIDERS: PCP Nurse Practitioner Family; Visit Provider Internal Medicine | DX: E11.22 Type 2 diabetes mellitus with diabetic chronic kidney disease (principal); E11.40 Type 2 diabetes mellitus with diabetic neuropathy, unspecified; E11.65 Type 2 diabetes mellitus with hyperglycemia; E87.5 Hyperkalemia; E11.621 Type 2 diabetes mellitus with foot ulcer; L98.494 Non-pressure chronic ulcer of skin of other sites with necrosis of bone; E78.5 Hyperlipidemia, unspecified; Z87.891 Personal history of nicotine dependence; Z79.4 Long term (current) use of insulin; N18.30 Chronic kidney disease, stage 3 unspecified | CPT/HCPCS: 99214 ==

== ENCOUNTER → 2022-06-14 08:00 | Outpatient (BNVA) | payer MEDICARE, MEDICAID, SELFPAY | PROVIDERS: PCP Nurse Practitioner Family; Visit Provider Nurse Practitioner Family | DX: I96 Gangrene, not elsewhere classified (principal); E11.621 Type 2 diabetes mellitus with foot ulcer; L89.623 Pressure ulcer of left heel, stage 3 | CPT/HCPCS: 11042; 11045; A6252 ==

== ENCOUNTER → 2022-06-21 07:55 | Outpatient (BNVA) | payer MEDICARE, MEDICAID, SELFPAY | PROVIDERS: PCP Nurse Practitioner Family; Visit Provider Thoracic Surgery (Cardiothoracic Vascular Surgery) | DX: I96 Gangrene, not elsewhere classified (principal); E11.621 Type 2 diabetes mellitus with foot ulcer; L97.423 Non-pressure chronic ulcer of left heel and midfoot with necrosis of muscle | CPT/HCPCS: 97597; A6197 ==

== ENCOUNTER → 2022-06-28 07:59 | Outpatient (BNVA) | payer MEDICARE, MEDICAID, SELFPAY | PROVIDERS: PCP Nurse Practitioner Family; Visit Provider Nurse Practitioner Family | DX: I96 Gangrene, not elsewhere classified (principal); E11.621 Type 2 diabetes mellitus with foot ulcer; L97.423 Non-pressure chronic ulcer of left heel and midfoot with necrosis of muscle | CPT/HCPCS: 11042; A6197; A6252 ==

== ENCOUNTER → 2022-07-05 07:59 | Outpatient (BNVA) | payer MEDICARE, MEDICAID, SELFPAY | PROVIDERS: PCP Nurse Practitioner Family; Visit Provider Nurse Practitioner Family | DX: I96 Gangrene, not elsewhere classified (principal); E11.621 Type 2 diabetes mellitus with foot ulcer; L97.423 Non-pressure chronic ulcer of left heel and midfoot with necrosis of muscle | CPT/HCPCS: 11042; A6197; A6252 ==

== ENCOUNTER → 2022-07-12 08:06 | Outpatient (BNVA) | payer MEDICARE, MEDICAID, SELFPAY | PROVIDERS: PCP Nurse Practitioner Family; Visit Provider Nurse Practitioner Family | DX: I96 Gangrene, not elsewhere classified (principal); E11.622 Type 2 diabetes mellitus with other skin ulcer; L89.893 Pressure ulcer of other site, stage 3 | CPT/HCPCS: 11042; A6252 ==

== ENCOUNTER → 2022-07-19 08:12 | Outpatient (BNVA) | payer MEDICARE, MEDICAID, SELFPAY | PROVIDERS: PCP Nurse Practitioner Family; Visit Provider Nurse Practitioner Family | DX: I96 Gangrene, not elsewhere classified (principal); E11.621 Type 2 diabetes mellitus with foot ulcer; L89.623 Pressure ulcer of left heel, stage 3; E11.40 Type 2 diabetes mellitus with diabetic neuropathy, unspecified | CPT/HCPCS: 11042; A6212 ×2 ==

== ENCOUNTER → 2022-07-26 08:01 | Outpatient (BNVA) | payer MEDICARE, MEDICAID, SELFPAY | PROVIDERS: PCP Nurse Practitioner Family; Visit Provider Nurse Practitioner Family | DX: I96 Gangrene, not elsewhere classified (principal); E11.621 Type 2 diabetes mellitus with foot ulcer; L89.623 Pressure ulcer of left heel, stage 3; E11.40 Type 2 diabetes mellitus with diabetic neuropathy, unspecified | CPT/HCPCS: 11042; A6021 ==

== ENCOUNTER → 2022-08-02 08:08 | Outpatient (BNVA) | payer MEDICARE, MEDICAID, SELFPAY | PROVIDERS: PCP Nurse Practitioner Family; Visit Provider Nurse Practitioner Family | DX: I96 Gangrene, not elsewhere classified (principal); E11.622 Type 2 diabetes mellitus with other skin ulcer; L97.322 Non-pressure chronic ulcer of left ankle with fat layer exposed | CPT/HCPCS: 11042; A6252 ==

== ENCOUNTER → 2022-08-09 07:59 | Outpatient (BNVA) | payer MEDICARE, MEDICAID, SELFPAY | PROVIDERS: PCP Nurse Practitioner Family; Visit Provider Nurse Practitioner Family | DX: I96 Gangrene, not elsewhere classified (principal); E11.622 Type 2 diabetes mellitus with other skin ulcer; L89.623 Pressure ulcer of left heel, stage 3 | CPT/HCPCS: 11042; A6252 ==

== ENCOUNTER → 2022-08-16 08:18 | Outpatient (BNVA) | payer MEDICARE, MEDICAID, SELFPAY | PROVIDERS: PCP Nurse Practitioner Family; Visit Provider Nurse Practitioner Family | DX: E11.621 Type 2 diabetes mellitus with foot ulcer (principal); I96 Gangrene, not elsewhere classified; L89.623 Pressure ulcer of left heel, stage 3 | CPT/HCPCS: 11042; A6250; A6252 ==

== ENCOUNTER → 2022-08-22 08:16 | Outpatient (BNVA) | payer MEDICARE, MEDICAID, SELFPAY | PROVIDERS: PCP Nurse Practitioner Family; Visit Provider Nurse Practitioner Family | DX: I96 Gangrene, not elsewhere classified (principal); E11.621 Type 2 diabetes mellitus with foot ulcer; L89.623 Pressure ulcer of left heel, stage 3 | CPT/HCPCS: 11042; A6252 ==

== ENCOUNTER → 2022-08-30 07:53 | Outpatient (BNVA) | payer MEDICARE, MEDICAID, SELFPAY | PROVIDERS: PCP Nurse Practitioner Family; Visit Provider Nurse Practitioner Family | DX: I96 Gangrene, not elsewhere classified (principal); E11.622 Type 2 diabetes mellitus with other skin ulcer; L89.623 Pressure ulcer of left heel, stage 3 | CPT/HCPCS: 11042; A6252 ==

== ENCOUNTER → 2022-09-13 08:14 | Outpatient (BNVA) | payer MEDICARE, MEDICAID, SELFPAY | PROVIDERS: PCP Nurse Practitioner Family; Visit Provider Thoracic Surgery (Cardiothoracic Vascular Surgery) | DX: I96 Gangrene, not elsewhere classified (principal); E11.621 Type 2 diabetes mellitus with foot ulcer; L89.623 Pressure ulcer of left heel, stage 3 | CPT/HCPCS: 11042; 87070; 87077; 87186 ==

== ENCOUNTER 2022-09-14 01:00 | Outpatient (CLI) | payer MEDICARE, MEDICAID, SELFPAY ==
[2022-09-14 14:26] LABS: Basophils % 0.4 %; Eosinophils # 0.1 10^3/uL (0.0-0.8); Hematocrit 44.6 % (42.0-52.0); Hemoglobin 14.1 g/dL (11.7-16.6); Lymphocytes # 1.1 10^3/uL (0.8-4.8); Lymphocytes % 12.2 %; Mean Corpuscular HGB Conc 31.6 g/dL (30.0-36.0); Mean Corpuscular Hemoglobin 26.6 pg (28.0-34.0); Mean Platelet Volume 12.9 fL (7.4-10.4); Monocytes % 10.8 %; Neutrophils # 6.88 10^3/uL (1.8-7.7); Neutrophils % 74.1 %; Nucleated Red Blood Cells % 0 %; Platelet Count 326 10^3/cmm (130-400); Red Blood Count 5.31 10^6/uL (4.1-5.3); Red Cell Distribution Width 14.4 % (12.1-15.1); White Blood Count 9.3 10^3/uL (4.0-10.0)
[2022-09-14 14:45] LABS: Anion Gap 15.2 (5-19); Blood Urea Nitrogen 32 mg/dL (6-20); Calcium 8.7 mg/dL (8.5-10.5); Carbon Dioxide 21 mmol/L (22-29); Chloride 101 mmol/L (98-107); Glomerular Filtration Rate 23.7 mL/min (90-130); Glucose 117 mg/dL (65-115); Osmolality Calculated 284 mOsm/kg (285-295); Potassium 4.2 mmol/L (3.5-5.1); Sodium 133 mmol/L (136-145)
== END 2022-09-14 23:00 | disposition home or self-care (01) ==
LOC: LAB 10-30 14:42
PROVIDERS: PCP Nurse Practitioner Family; Visit Provider Thoracic Surgery (Cardiothoracic Vascular Surgery)
DX: N18.30 Chronic kidney disease, stage 3 unspecified (principal)
CPT/HCPCS: 80048; 85025

== ENCOUNTER → 2022-09-20 08:14 | Outpatient (BNVA) | payer MEDICARE, MEDICAID, SELFPAY | PROVIDERS: PCP Nurse Practitioner Family; Visit Provider Thoracic Surgery (Cardiothoracic Vascular Surgery) | DX: I96 Gangrene, not elsewhere classified (principal); E11.621 Type 2 diabetes mellitus with foot ulcer; L89.623 Pressure ulcer of left heel, stage 3 | CPT/HCPCS: 11042; 11045; A6252 ==

== ENCOUNTER → 2022-10-08 08:57 | Outpatient (BNVA) | payer MEDICARE, MEDICAID, SELFPAY | PROVIDERS: PCP Nurse Practitioner Family; Visit Provider Thoracic Surgery (Cardiothoracic Vascular Surgery) | DX: I96 Gangrene, not elsewhere classified (principal); E11.621 Type 2 diabetes mellitus with foot ulcer; L89.623 Pressure ulcer of left heel, stage 3 | CPT/HCPCS: 11042; 11045; A6212 ==

== ENCOUNTER → 2022-10-15 09:23 | Outpatient (BNVA) | payer MEDICARE, MEDICAID, SELFPAY | PROVIDERS: PCP Nurse Practitioner Family; Visit Provider Thoracic Surgery (Cardiothoracic Vascular Surgery) | DX: I96 Gangrene, not elsewhere classified (principal); E11.621 Type 2 diabetes mellitus with foot ulcer; L89.623 Pressure ulcer of left heel, stage 3 | CPT/HCPCS: 11042; 11045; A6197; A6252 ==

== ENCOUNTER → 2022-10-22 10:14 | Outpatient (BNVA) | payer MEDICARE, MEDICAID, SELFPAY | PROVIDERS: PCP Nurse Practitioner Family; Visit Provider Thoracic Surgery (Cardiothoracic Vascular Surgery) | DX: I96 Gangrene, not elsewhere classified (principal); E11.622 Type 2 diabetes mellitus with other skin ulcer; L89.623 Pressure ulcer of left heel, stage 3 | CPT/HCPCS: 11042; 11045; A6197; A6252 ==

== ENCOUNTER → 2022-10-29 10:09 | Outpatient (BNVA) | payer MEDICARE, MEDICAID, SELFPAY | PROVIDERS: PCP Nurse Practitioner Family; Visit Provider Thoracic Surgery (Cardiothoracic Vascular Surgery) | DX: I96 Gangrene, not elsewhere classified (principal); E11.621 Type 2 diabetes mellitus with foot ulcer; L89.623 Pressure ulcer of left heel, stage 3; L89.892 Pressure ulcer of other site, stage 2; E11.622 Type 2 diabetes mellitus with other skin ulcer | CPT/HCPCS: 11042; 11045; 87070; 87077; 87186; A6197; A6250; A6252 ==

== ENCOUNTER 2022-11-02 13:31 | Outpatient (CLI) | payer MEDICARE, MEDICAID, SELFPAY ==
--- NOTE | 2022-11-02 13:42 | XR_ITS ---
WS: [id number] Right foot, 3 views, 11/02/2022 Clinical Data: open wounds; rule out osteo Comparison: Right foot, 05/20/2019 Findings: There are erosive changes and destruction of the distal portions of the right second through fifth me tatarsals. There are erosions at the bases of the right second through fifth toe proximal phalanges. There is soft tissue swelling over the dorsum of the foot. The right great toe shows osteoarthritis o f the MTP and IP joints. No significant change from the previous x-ray is seen. The tarsal bones show osteoarthritis. There is osteoarthritis of the head of the right first metatarsal. There is a plantar spur and an Achilles sp ur. There are no fractures or dislocations. XR/XR foot RT min 3V* [id number] Impression: 1. Erosive changes and destruction of the distal right second through fifth met atarsals unchanged. 2. Erosions of the bases of the right second through fifth toe proximal phalang es unchanged. 3. Soft tissue swelling over dorsum of the foot. 4. No change of advancing osteomyelitis is seen.
== END 2022-11-02 13:32 | disposition home or self-care (01) ==
PROVIDERS: PCP Nurse Practitioner Family; Visit Provider Thoracic Surgery (Cardiothoracic Vascular Surgery)
DX: E11.621 Type 2 diabetes mellitus with foot ulcer (principal); L97.509 Non-pressure chronic ulcer of other part of unspecified foot with unspecified severity; M79.89 Other specified soft tissue disorders
CPT/HCPCS: 73630

== ENCOUNTER → 2022-11-05 16:29 | Outpatient (BNVA) | payer MEDICARE, MEDICAID, SELFPAY | PROVIDERS: PCP Nurse Practitioner Family; Visit Provider Thoracic Surgery (Cardiothoracic Vascular Surgery) | DX: I96 Gangrene, not elsewhere classified (principal); E11.621 Type 2 diabetes mellitus with foot ulcer; L89.892 Pressure ulcer of other site, stage 2 | CPT/HCPCS: 11042; 11045; A6197; A6252 ==

== ENCOUNTER → 2022-11-09 09:52 | Outpatient (BNVA) | payer MEDICARE, MEDICAID, SELFPAY | PROVIDERS: PCP Nurse Practitioner Family; Visit Provider Podiatrist Foot & Ankle Surgery | DX: E11.621 Type 2 diabetes mellitus with foot ulcer (principal); L97.512 Non-pressure chronic ulcer of other part of right foot with fat layer exposed; E11.22 Type 2 diabetes mellitus with diabetic chronic kidney disease; R60.9 Edema, unspecified; N18.9 Chronic kidney disease, unspecified; G62.9 Polyneuropathy, unspecified; Z79.4 Long term (current) use of insulin | CPT/HCPCS: 99204 ==

== ENCOUNTER → 2022-11-12 16:00 | Outpatient (BNVA) | payer MEDICARE, MEDICAID, SELFPAY | PROVIDERS: PCP Nurse Practitioner Family; Visit Provider Thoracic Surgery (Cardiothoracic Vascular Surgery) | DX: E11.621 Type 2 diabetes mellitus with foot ulcer (principal); L89.623 Pressure ulcer of left heel, stage 3; Z09 Encounter for follow-up examination after completed treatment for conditions other than malignant neoplasm | CPT/HCPCS: 11042; 11045; A6197; A6252 ==

== ENCOUNTER 2022-11-19 11:49 | Outpatient (CLI) | payer MEDICARE, MEDICAID, SELFPAY ==
[2022-11-19 12:37] LABS: Basophils # 0.1 10^3/uL (0.0-0.1); Basophils % 1.2 %; Eosinophils # 0.3 10^3/uL (0.0-0.8); Eosinophils % 3.3 %; Hematocrit 40.9 % (42.0-52.0); Hemoglobin 12.6 g/dL (11.7-16.6); Lymphocytes # 1.1 10^3/uL (0.8-4.8); Lymphocytes % 11.9 %; Mean Corpuscular HGB Conc 30.8 g/dL (30.0-36.0); Mean Corpuscular Volume 87.6 fl (80-94); Mean Platelet Volume 12.4 fL (7.4-10.4); Monocytes # 0.7 10^3/uL (0.2-0.9); Monocytes % 7.9 %; Neutrophils # 7.02 10^3/uL (1.8-7.7); Neutrophils % 75.4 %; Nucleated Red Blood Cells % 0 %; Platelet Count 258 10^3/cmm (130-400); Red Blood Count 4.67 10^6/uL (4.1-5.3); White Blood Count 9.3 10^3/uL (4.0-10.0)
[2022-11-19 12:51] LABS: Anion Gap 16.5 (5-19); Blood Urea Nitrogen 33 mg/dL (6-20); C Reactive Protein 6.4 mg/L (0.0-4.9); Calcium 8.6 mg/dL (8.5-10.5); Carbon Dioxide 20 mmol/L (22-29); Chloride 102 mmol/L (98-107); Glomerular Filtration Rate 25.9 mL/min (90-130); Glucose 240 mg/dL (65-115); Osmolality Calculated 291 mOsm/kg (285-295); Potassium 5.5 mmol/L (3.5-5.1); Sodium 133 mmol/L (136-145)
== END 2022-11-19 11:50 | disposition home or self-care (01) ==
LOC: LAB 11:52
PROVIDERS: PCP Nurse Practitioner Family; Visit Provider Thoracic Surgery (Cardiothoracic Vascular Surgery)
DX: E11.621 Type 2 diabetes mellitus with foot ulcer (principal); L89.892 Pressure ulcer of other site, stage 2; L89.623 Pressure ulcer of left heel, stage 3; Z79.899 Other long term (current) drug therapy
CPT/HCPCS: 11042; 36415; 80048; 85025; 86140; 97597; A6252

== ENCOUNTER 2022-11-21 15:27 | Outpatient (CLI) | payer MEDICARE, MEDICAID, SELFPAY ==
[2022-11-21 16:08] LABS: Basophils # 0.1 10^3/uL (0.0-0.1); Basophils % 1.2 %; Eosinophils # 0.4 10^3/uL (0.0-0.8); Eosinophils % 3.8 %; Hematocrit 38.6 % (42.0-52.0); Hemoglobin 12.1 g/dL (11.7-16.6); Lymphocytes # 1.3 10^3/uL (0.8-4.8); Lymphocytes % 13.4 %; Mean Corpuscular HGB Conc 31.3 g/dL (30.0-36.0); Mean Corpuscular Hemoglobin 27.1 pg (28.0-34.0); Mean Corpuscular Volume 86.4 fl (80-94); Mean Platelet Volume 13.3 fL (7.4-10.4); Monocytes % 10.1 %; Neutrophils # 6.67 10^3/uL (1.8-7.7); Nucleated Red Blood Cells % 0 %; Platelet Count 251 10^3/cmm (130-400); Red Blood Count 4.47 10^6/uL (4.1-5.3); White Blood Count 9.4 10^3/uL (4.0-10.0)
[2022-11-21 16:23] LABS: Calcium 8.1 mg/dL (8.5-10.5)
[2022-11-21 16:31] LABS: Parathyroid Hormone 209.1 pg/mL (15-65)
[2022-11-21 16:39] LABS: 25 Hydroxy Vitamin D 9 ng/mL (30-100)
== END 2022-11-21 15:28 | disposition home or self-care (01) ==
PROVIDERS: PCP Nurse Practitioner Family; Visit Provider Internal Medicine Nephrology
DX: N18.32 Chronic kidney disease, stage 3b (principal)
CPT/HCPCS: 82306; 82310; 83970; 85025; 86431

== ENCOUNTER → 2022-11-26 10:11 | Outpatient (BNVA) | payer MEDICARE, MEDICAID, SELFPAY | PROVIDERS: PCP Nurse Practitioner Family; Visit Provider Thoracic Surgery (Cardiothoracic Vascular Surgery) | DX: I96 Gangrene, not elsewhere classified (principal); E11.621 Type 2 diabetes mellitus with foot ulcer; L89.623 Pressure ulcer of left heel, stage 3; L89.892 Pressure ulcer of other site, stage 2 | CPT/HCPCS: 11042; 11045; A6251; A6252 ==

== ENCOUNTER 2022-11-29 09:11 | Inpatient (IN) | payer MEDICARE, MEDICAID, SELFPAY ==
[2022-11-29] VITALS (63 sets, daily range): BP systolic 133–146; BP diastolic 70–95; PULSE 69–81; RESP 12–35; TEMP 36.2–36.4; O2SAT 86–96; BMI 41.3; BMI 42.3
--- NOTE | 2022-11-29 09:25 | ECG_ITS ---
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 Measurements Intervals [place] Rate: 71 P: 2 NM: 137 QRS: 100 QRSD: 146 T: 39 QT: 406 QTc: 443 Interpretive Statements SINUS RHYTHM RIGHT BUNDLE BRANCH BLOCK [120+ ms QRS DURATION, UPRIGHT V1, 40+ ms S IN I/aVL/V4/V5/V6] POSSIBLE SEPTAL MYOCARDIAL INFARCTION , OF INDETERMINATE AGE [30 ms Q WAVE IN V1/V2] Compared to ECG 04/16/2022 18:51:36 Myocardial infarct finding now present Right-axis deviation no longer present Electronically Signed On 11-29-2022 18:04:56 DIRECTOR DERMATOLOGY by Davin Diaz M.D. [email or web address]
--- NOTE | 2022-11-29 09:26 | XRR_ITS ---
PROCEDURE INFORMATION: Exam: XR Chest Exam date and time: 11/29/2022 9:36 AM Age: 57 years old Clinical indication: Shortness of breath; Additional info: SOB TECHNIQUE: Imaging protocol: Radiologic exam of the chest. Views: 1 view. COMPARISON: CR (CHEST, ) 05/16/2022 5:44 PM FINDINGS: Lungs: There is redistribution and indistinctness of the pulmonary vasculature, in association with haziness of the lungs, which in the setting of cardiomegaly is consistent with pulmonary edema. Pneumonia should be excluded clinically. No large pleural effusion. No pneumothorax. Pleural spaces: See Lungs finding. Heart/Mediastinum: Stable cardiomediastinal silhouette. Bones/joints: Unremarkable. XR/XR chest 1V portable [id number] IMPRESSION: Imaging findings of pulmonary edema. Pneumonia should be excluded clinically.
[2022-11-29 09:43] LABS: Basophils # 0.1 10^3/uL (0.0-0.1); Basophils % 0.7 %; Eosinophils # 0.1 10^3/uL (0.0-0.8); Eosinophils % 0.5 %; Hematocrit 41.2 % (42.0-52.0); Hemoglobin 12.8 g/dL (11.7-16.6); Lymphocytes # 0.9 10^3/uL (0.8-4.8); Lymphocytes % 6.8 %; Mean Corpuscular HGB Conc 31.1 g/dL (30.0-36.0); Mean Corpuscular Hemoglobin 26.8 pg (28.0-34.0); Mean Corpuscular Volume 86.2 fl (80-94); Mean Platelet Volume 13.5 fL (7.4-10.4); Monocytes # 0.8 10^3/uL (0.2-0.9); Monocytes % 5.6 %; Neutrophils # 11.86 10^3/uL (1.8-7.7); Neutrophils % 85.9 %; Nucleated Red Blood Cells % 0 %; Platelet Count 255 10^3/cmm (130-400); Red Blood Count 4.78 10^6/uL (4.1-5.3); Red Cell Distribution Width 16.9 % (12.1-15.1); White Blood Count 13.8 10^3/uL (4.0-10.0)
--- NOTE | 2022-11-29 09:44 | ED_ITS ---
Documented by User: VAN Jefferson 11/29/22 13:20 HPI - SOB/Dyspnea General: Chief Complaint: Shortness of Breath/Dyspnea Stated Complaint: shortness of breath Time Seen by Provider: 11/29/22 09:27 Source: patient and EMS Mode of arrival: EMS Limitations: no limitations History of Present Illness: HPI Narrative: Patient is a 57-year-old presents to ED today for evaluation of shortness of breath. Patient states shortness of breath has progressively worsened starting a few weeks ago but he states over the past 48 hours it has really gotten sig nificant. He states last night while he was laying flat he was using a finger pulse ox and states it was reading in the 70s. He states when he leaned up he could get his oxygen up to mid 80s. He states this morning shortness of breath was so significant that he had to call an ambulance. He does not use oxygen at home. He was requiring 3 to 4 L of oxygen prior to arrival to sat in the low 90s. PMH is significant for type 2 diabetes, HTN, hyperlipidemia, chronic kidney disease, and bilateral foot diabetic ulcers that are being managed by wound care and home health. Patient is a former smoker. MD elicited complaint: shortness of breath Pertinent past history: diabetes Onset (ago): day(s) Timing: constant Severity: severe Exacerbating factors: lying flat and exertion Relieving factors: nothing Known history of: diabetes Associated symptoms: Reports orthopnea; Deny abdominal pain, chest congestion, chest pain, extremity pain, fever(s), hemoptysis, lightheadedness, nausea, palpitations, syncope or vomiting Treatment prior to arrival: oxygen Related Data: Home oxygen amount: none Review of Systems Const: Denies: fever(s), chills, body aches, fatigue or malaise Card: Reports: edema, swelling of feet/ankles, dyspnea on exertion and orthopnea; Denies: chest pain, palpitations, irregular heart rhythm, lightheadedness, syncope, pre-syncope or acrocyanosis Resp: Reports: dyspnea; Denies: wheezing, pain on inspiration, hemoptysis or chest congestion GI: Denies: abdominal pain, nausea, vomiting or change in bowel habits : Denies: flank pain, difficulty urinating, dysuria or hematuria Musc: Denies: neck pain, back pain, extremity pain or joint pain Skin/Breast: Denies: rash Neuro: Denies: headache(s), numbness in extremities, weakness in extremities or sensory changes PFSH ED PFSH: Medical History Acute kidney injury superimposed on CKD 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 Chronic osteomyelitis Diabetes Hyperlipidemia Neuropathy Onychomycosis of nail of digit of hand Uncontrolled type 2 diabetes with neuropathy Surgical History H/O circumcision H/O colonoscopy 7 yrs ago Status post debridement of ulcer of heel Family History Brother Cancer Sister Lung disease Mother Heart failure Father Chronic kidney failure Denies family history of Anesthesia complication Bleeding disorder Social History Smoking and tobacco status: former smoker Second hand smoke exposure: No Alcohol intake: never Adopted: No Lives independently: Yes Marital status: Single Current occupational status: disabled Physical Exam Const: COMMON NORMALS: no acute distress, patient oriented x3 and alert GENERAL APPEARANCE: cooperative NUTRITIONAL APPEARANCE: obese ORIENTATION/CONSCIOUSNESS: Yes awake, Yes oriented to person, Yes oriented to place and Yes oriented to time HENMT: COMMON NORMALS: normocephalic and atraumatic HEAD & SCALP: normal to inspection, normocephalic and atraumatic Eye: SCLERA: sclerae normal Neck/C-Spine: COMMON NORMALS: full ROM, no lymphadenopathy and no meningeal signs GENERAL: Yes normal visual inspection Chest: COMMONS NORMALS: normal inspection of the chest and normal palpation of entire chest wall Resp: EFFORT & INSPECTION: No tachypneic, Yes respiratory distress (acute respiratory distress with hypoxia) and No labored AUSCULTATION: diminished lung sounds (lower gama) Cardio: COMMON NORMALS: regular rate and regular rhythm RATE: regular rate RHYTHM: regular rhythm GI: COMMON NORMALS: Normal to inspection, nondistended, normoactive bowel sounds present, Soft to palpation and non-tender PALPATION: Yes Soft to palpation Extremity: GENERAL: Yes normal exam except as noted and Yes edema OTHER: bilateral foot ulcers Neuro: ANTOINE COMA SCALE: document GCS findings Antoine coma scale eye opening: Spontaneous Antoine coma scale verbal response: Orientated Antoine coma scale motor response: Obey commands Antoine coma scale total score: 15 COMMON NORMALS: patient oriented x3, moves all extremities, no focal motor deficits and no sensory deficits noted SENSORIUM/ORIENTATION: Yes alert, Yes oriented to person, Yes oriented to place and Yes oriented to time MENINGEAL SIGNS: Yes no meningeal signs Course Consultations: Consultation #1: Dr. Mary-accepts admission Vital Signs: Vital signs: Vital Signs Temperature 97.5 F L 11/29/22 09:19 Pulse Rate 72 11/29/22 12:30 Respiratory Rate 18 11/29/22 12:30 Blood Pressure 141/79 11/29/22 13:00 Pulse Oximetry 95 11/29/22 13:40 Oxygen Delivery Me thod 11/29/22 13:40 Oxygen Flow Rate 3 11/29/22 13:40 MDM - SOB/Dyspnea Medical Decision Making Patient is a 57-year-old male with an extensive medical history here for complaints of progressive dyspnea over the past few weeks with acute worsening over the past 2 days. Patient arrives hypoxic requiring 3 to 4 L of oxygen. Clinically he appears fluid overloaded. CXR supports this with findings of pulmonary edema. Blood work showing elevations to his kidney labs consistent with his known chronic kidney disease. He is mildly hyperkalemic at 5.4. BNP is over 22,000. Baseline troponin is 442. He has a negative delta. EKG showing no ischemic changes and no changes when compared to previous. Patient will require specialization for new onset congestive heart failure and hypoxia. I spoke to Dr. Oliva who reviewed patient agrees with need for hospitalization. I spoke to Dr. Mary who accepts admission. Lab Data 11/29/22 09:31 11/29/22 09:31 Labs/Radiology: Radiology Impressions Chest X-Ray 11/29/22 09:26 IMPRESSION: Imaging findings of pulmonary edema. Pneumonia should be excluded clinically. Laboratory Results WBC 13.8 10^3/uL (4.0-10.0) H 11/29/22 09:31 RBC 4.78 10^6/uL (4.1-5.3) 11/29/22 09:31 Hgb 12.8 g/dL (11.7-16.6) 11/29/22 09:31 Hct 41.2 % (42.0-52.0) L 11/29/22 09:31 MCV 86.2 fl (80-94) 11/29/22 09: MCH 26.8 pg (28.0-34.0) L 11/29/22 09: MCHC 31.1 g/dL (30.0-36.0) 11/29/22 09: RDW 16.9 % (12.1-15.1) H 11/29/22 09:31 Plt Count 255 10^3/cmm (130-400) 11/29/22 09: MPV 13.5 fL (7.4-10.4) H 11/29/22 09:31 Neut % (Auto) 85.9 % 11/29/22 09: Lymph % (Auto) 6.8 % 11/29/22 09: [place] % (Auto) 5.6 % 11/29/22 09: Eos % (Auto) 0.5 % 11/29/22 09: Baso % (Auto) 0.7 % 11/29/22 09: Neut # (Auto) 11.86 10^3/uL (1.8-7.7) H 11/29/22 09:31 Lymph # (Auto) 0.9 10^3/uL (0.8-4.8) 11/29/22 09: [place] # (Auto) 0.8 10^3/uL (0.2-0.9) 11/29/22 09: Eos # (Auto) 0.1 10^3/uL (0.0-0.8) 11/29/22 09: Baso # (Auto) 0.1 10^3/uL (0.0-0.1) 11/29/22 09: Nucleated RBC % (auto) 0 % 11/29/22 09: Nucleated RBCs # 0.0 /100WBC 11/29/22 09:31 Specimen Type Arterial 11/29/22 09:50 Sample Site Radial, right 11/29/22 09:50 ABG pH 7.31 (7.35-7.45) L 11/29/22 09:50 ABG pCO2 42.6 mmHg (35-45) 11/29/22 09:50 ABG pO2 61.9 mmHg (80.0-100.0) L 11/29/22 09:50 ABG HCO3 21.4 mmol/L (22-26) L 11/29/22 09:50 ABG Base Excess -4.7 mmol/L (-2.0-2.0) L 11/29/22 09:50 Pedro Test Pos 11/29/22 09:50 Hematocrit 37.2 % (42-52) L 11/29/22 09:50 Hgb O2 Saturation 90.3 % (95-100) L 11/29/22 09:50 Carboxyhemoglobin 1.6 %THgb (0.4-20.1) 11/29/22 09:50 Methemoglobin 0.5 % (0.4-1.5) 11/29/22 09:50 Total Hemoglobin 12.2 g/dL (14-18) L 11/29/22 09:50 O2 Delivery Device Nc 11/29/22 09:50 O2 Liters/Min 4.0 % 11/29/22 09:50 Chemistry Lecturer ID [email or web address] 11/29/22 09:50 Sodium 135 mmol/L (136-145) L 11/29/22 10:08 Potassium 5.4 mmol/L (3.5-5.1) H 11/29/22 10:08 Chloride 102 mmol/L (98-107) 11/29/22 10:08 Carbon Dioxide 19 mmol/L (22-29) L 11/29/22 10:08 Anion Gap 19.4 (5-19) H 11/29/22 10:08 BUN 37 mg/dL (6-20) H 11/29/22 10:08 Creatinine 3.1 mg/dL (0.7-1.2) H 11/29/22 10:08 GFR Calculation 21.0 mL/min (90-130) L 11/29/22 10:08 Glucose 147 mg/dL (65-115) H 11/29/22 10:08 Estimat Average Glucose 203 11/29/22 09:28 Hemoglobin A1c 8.7 % (4.0-6.0) H 11/29/22 09:28 Calculated Osmolality 291 mOsm/kg (285-295) 11/29/22 10:08 Lactic Acid 0.8 mmol/L (0.5-2.2) 11/29/22 10:08 Calcium 8.6 mg/dL (8.5-10.5) 11/29/22 10:08 Total Bilirubin 0.4 mg/dL (0.15-1.2) 11/29/22 10:08 AST 52 U/L (0-40) H 11/29/22 10:08 ALT 23 U/L (0-41) 11/29/22 10:08 Alkaline Phosphatase 291 U/L (40-130) H 11/29/22 10:08 Troponin T Baseline 442 ng/L (0-15) H* 11/29/22 10:00 Troponin T 120 Minute 415.2 ng/L (0-15) H 11/29/22 11:56 Delta Troponin T -26.8 ABS# (0-10) L 11/29/22 11:56 NT-Pro-B Natriuret Pep 71128 pg/mL (0-125) H 11/29/22 10:08 Total Protein 7.6 g/dL (6.6-8.7) 11/29/22 10:08 Albumin 3.1 g/dL (3.5-5.2) L 11/29/22 10:08 Globulin 4.5 g/dL (1.3-4.6) 11/29/22 10:08 Triglycerides 103 mg/dL (0-150) 11/29/22 10:00 Cholesterol 142 mg/dL (0-200) 11/29/22 10:00 LDL Cholesterol, Calc 81 mg/dL (50-129) 11/29/22 10:00 HDL Cholesterol 40 mg/dL (60-100) L 11/29/22 10:00 LDL/HDL Ratio 2.03 RATIO (0.00-3.22) 11/29/22 10:00 Cholesterol/HDL Ratio 3.55 mg/dL (1.0-5.00) 11/29/22 10:00 Procalcitonin 0.13 ng/mL (0-0.5) 11/29/22 10:08 TSH 2.21 uIU/mL (0.27-4.20) 11/29/22 10:00 Discharge Plan Discharge Patient Disposition: Admitted As Inpatient Admit Provider: Tsering Mary Clinical Impression: Congestive heart failure, Hyperkalemia, Hypoxia, Chronic kidney disease, Type 2 diabetes mellitus Condition: Stable Coding Level of Care Code ED Optical Laboratory Mechanic for Chg Fwd Documented by User: Aguilar Oliva DO 11/29/22 14:21 HPI - SOB/Dyspnea General: Chief Complaint: Shortness of Breath/Dyspnea Stated Complaint: shortness of breath Time Seen by Provider: 11/29/22 09:27 PFSH ED PFSH: Medical History Acute kidney injury superimposed on CKD 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 Chronic osteomyelitis Diabetes Hyperlipidemia Neuropathy Onychomycosis of nail of digit of hand Uncontrolled type 2 diabetes with neuropathy Surgical History H/O circumcision H/O colonoscopy 7 yrs ago Status post debridement of ulcer of heel Family History Brother Cancer Sister Lung disease Mother Heart failure Father Chronic kidney failure Denies family history of Anesthesia complication Bleeding disorder Social History Smoking and tobacco status: former smoker Second hand smoke exposure: No Alcohol intake: never Adopted: No Lives independently: Yes Marital status: Single Current occupational status: disabled Physical Exam Neuro: ANTOINE COMA SCALE: document GCS findings Ringling coma scale total score: 15 Course Reevaluation(s): Reevaluation #1: Is one of the attending emergency physicians on duty this case was discussed with me by the advanced nurse practitioner. Reviewed her evaluation, work-up and results. Current findings support the diagnosis of congestive heart failure without any evidence of ongoing other medical conditions at this time. I did not personally see this patient however I agree with the work-up and the need for admission. Time: 14:21 Vital Signs: Vital signs: Vital Signs Temperature 97.5 F L 11/29/22 09:19 Pulse Rate 72 11/29/22 12:30 Respiratory Rate 18 11/29/22 12:30 Blood Pressure 141/79 11/29/22 13:00 Pulse Oximetry 95 11/29/22 13:40 Oxygen Delivery Me thod 11/29/22 13:40 Oxygen Flow Rate 3 11/29/22 13:40 MDM - SOB/Dyspnea Lab Data 11/29/22 09:31 11/29/22 09:31 Labs/Radiology: Radiology Impressions Chest X-Ray 11/29/22 09:26 IMPRESSION: Imaging findings of pulmonary edema. Pneumonia should be excluded clinically. Laboratory Results WBC 13.8 10^3/uL (4.0-10.0) H 11/29/22 09:31 RBC 4.78 10^6/uL (4.1-5.3) 11/29/22 09:31 Hgb 12.8 g/dL (11.7-16.6) 11/29/22 09:31 Hct 41.2 % (42.0-52.0) L 11/29/22 09:31 MCV 86.2 fl (80-94) 11/29/22 09:31 MCH 26.8 pg (28.0-34.0) L 11/29/22 09:31 MCHC 31.1 g/dL (30.0-36.0) 11/29/22 09:31 RDW 16.9 % (12.1-15.1) H 11/29/22 09:31 Plt Count 255 10^3/cmm (130-400) 11/29/22 09:31 MPV 13.5 fL (7.4-10.4) H 11/29/22 09:31 Neut % (Auto) 85.9 % 11/29/22 09:31 Lymph % (Auto) 6.8 % 11/29/22 09:31 [place] % (Auto) 5.6 % 11/29/22 09:31 Eos % (Auto) 0.5 % 11/29/22 09:31 Baso % (Auto) 0.7 % 11/29/22 09:31 Neut # (Auto) 11.86 10^3/uL (1.8-7.7) H 11/29/22 09:31 Lymph # (Auto) 0.9 10^3/uL (0.8-4.8) 11/29/22 09:31 [place] # (Auto) 0.8 10^3/uL (0.2-0.9) 11/29/22 09:31 Eos # (Auto) 0.1 10^3/uL (0.0-0.8) 11/29/22 09:31 Baso # (Auto) 0.1 10^3/uL (0.0-0.1) 11/29/22 09:31 Nucleated RBC % (auto) 0 % 11/29/22 09:31 Nucleated RBCs # 0.0 /100WBC 11/29/22 09:31 Specimen Type Arterial 11/29/22 09:50 Sample Site Radial, right 11/29/22 09:50 ABG pH 7.31 (7.35-7.45) L 11/29/22 09:50 ABG pCO2 42.6 mmHg (35-45) 11/29/22 09:50 ABG pO2 61.9 mmHg (80.0-100.0) L 11/29/22 09:50 ABG HCO3 21.4 mmol/L (22-26) L 11/29/22 09:50 ABG Base Excess -4.7 mmol/L (-2.0-2.0) L 11/29/22 09:50 Pedro Test Pos 11/29/22 09:50 Hematocrit 37.2 % (42-52) L 11/29/22 09:50 Hgb O2 Saturation 90.3 % (95-100) L 11/29/22 09:50 Carboxyhemoglobin 1.6 %THgb (0.4-20.1) 11/29/22 09:50 Methemoglobin 0.5 % (0.4-1.5) 11/29/22 09:50 Total Hemoglobin 12.2 g/dL (14-18) L 11/29/22 09:50 O2 Delivery Device Nc 11/29/22 09:50 O2 Liters/Min 4.0 % 11/29/22 09:50 Chemistry Lecturer ID [email or web address] 11/29/22 09:50 Sodium 135 mmol/L (136-145) L 11/29/22 10:08 Potassium 5.4 mmol/L (3.5-5.1) H 11/29/22 10:08 Chloride 102 mmol/L (98-107) 11/29/22 10:08 Carbon Dioxide 19 mmol/L (22-29) L 11/29/22 10:08 Anion Gap 19.4 (5-19) H 11/29/22 10:08 BUN 37 mg/dL (6-20) H 11/29/22 10:08 Creatinine 3.1 mg/dL (0.7-1.2) H 11/29/22 10:08 GFR Calculation 21.0 mL/min (90-130) L 11/29/22 10:08 Glucose 147 mg/dL (65-115) H 11/29/22 10:08 Estimat Average Glucose 203 11/29/22 09:28 Hemoglobin A1c 8.7 % (4.0-6.0) H 11/29/22 09:28 Calculated Osmolality 291 mOsm/kg (285-295) 11/29/22 10:08 Lactic Acid 0.8 mmol/L (0.5-2.2) 11/29/22 10:08 Calcium 8.6 mg/dL (8.5-10.5) 11/29/22 10:08 Total Bilirubin 0.4 mg/dL (0.15-1.2) 11/29/22 10:08 AST 52 U/L (0-40) H 11/29/22 10:08 ALT 23 U/L (0-41) 11/29/22 10:08 Alkaline Phosphatase 291 U/L (40-130) H 11/29/22 10:08 Troponin T Baseline 442 ng/L (0-15) H* 11/29/22 10:00 Troponin T 120 Minute 415.2 ng/L (0-15) H 11/29/22 11:56 Delta Troponin T -26.8 ABS# (0-10) L 11/29/22 11:56 NT-Pro-B Natriuret Pep 10472 pg/mL (0-125) H 11/29/22 10:08 Total Protein 7.6 g/dL (6.6-8.7) 11/29/22 10:08 Albumin 3.1 g/dL (3.5-5.2) L 11/29/22 10:08 Globulin 4.5 g/dL (1.3-4.6) 11/29/22 10:08 Triglycerides 103 mg/dL (0-150) 11/29/22 10:00 Cholesterol 142 mg/dL (0-200) 11/29/22 10:00 LDL Cholesterol, Calc 81 mg/dL (50-129) 11/29/22 10:00 HDL Cholesterol 40 mg/dL (60-100) L 11/29/22 10:00 LDL/HDL Ratio 2.03 RATIO (0.00-3.22) 11/29/22 10:00 Cholesterol/HDL Ratio 3.55 mg/dL (1.0-5.00) 11/29/22 10:00 Procalcitonin 0.13 ng/mL (0-0.5) 11/29/22 10:08 TSH 2.21 uIU/mL (0.27-4.20) 11/29/22 10:00 Discharge Plan Discharge Patient Disposition: Admitted As Inpatient Admit Provider: Tsering Mary Clinical Impression: Congestive heart failure, Hyperkalemia, Hypoxia, Chronic kidney disease, Type 2 diabetes mellitus Condition: Stable Coding Level of Care Code ED Optical Laboratory Mechanic for Blaise Beckett
[2022-11-29 10:01] LABS: ABG PCO2 42.6 mmHg (35-45); ABG PH Result 7.31 (7.35-7.45); Arterial Blood Gas Hematocrit 37.2 % (42-52); Base Excess ABG -4.7 mmol/L (-2.0-2.0); Blood Gas Allen Test Pos; Blood Gas Sample Site Radial, right; Blood Gas Sample Type Arterial; Carboxyhemoglobin 1.6 %THgb (0.4-20.1); HCO3 ABG 21.4 mmol/L (22-26); HGB O2 Sat 90.3 % (95-100); Methemoglobin 0.5 % (0.4-1.5); Oxygen Device NC; PO2 ABG 61.9 mmHg (80.0-100.0); Total Hemoglobin 12.2 g/dL (14-18)
[2022-11-29 10:27] LABS: Slide Review Slide Review Perform
[2022-11-29 10:39] LABS: Alanine Aminotransferase 23 U/L (0-41); Albumin Level 3.1 g/dL (3.5-5.2); Alkaline Phosphatase 291 U/L (40-130); Anion Gap 19.4 (5-19); Aspartate Amino Transferase 52 U/L (0-40); Blood Urea Nitrogen 37 mg/dL (6-20); Calcium 8.6 mg/dL (8.5-10.5); Carbon Dioxide 19 mmol/L (22-29); Chloride 102 mmol/L (98-107); Globulin 4.5 g/dL (1.3-4.6); Glucose 147 mg/dL (65-115); Osmolality Calculated 291 mOsm/kg (285-295); Potassium 5.4 mmol/L (3.5-5.1); Sodium 135 mmol/L (136-145); Total Bilirubin 0.4 mg/dL (0.15-1.2); Total Protein 7.6 g/dL (6.6-8.7)
[2022-11-29 10:40] LABS: Lactic Sepsis W/Reflex 0.8 mmol/L (0.5-2.2)
[2022-11-29 10:53] LABS: NT Pro B Type Natriuretic Pept 22337 pg/mL (0-125); Procalcitonin 0.13 ng/mL (0-0.5)
[2022-11-29] MEDS: FUROsemide 10 mg/mL SDV 4mL 40 MG IVP ×2 (11:21→17:44)
[2022-11-29 11:28] LABS: Troponin(5th) Baseline 442 ng/L (0-15)
--- NOTE | 2022-11-29 12:24 | P.HP_ITS ---
Providers/Chief Complaint Primary Care Provider: SERAFIN Reza Chief Complaint: shortness of breath History of Present Illness Tim Robison is a 57 year old male with past medical history of CKD, type 2 diabetes mellitus, hyperlipidemia, peripheral neuropathy, chronic osteomyelitis and lower extremity wounds for which he follows at wound care clinic. He was supposed to have an MRI done tomorrow for ruling out osteomyelitis. He is being managed at wound care for his diabetic foot ulcers. He states that lately he has been experiencing shortness of breath on exertion and at rest. He states it has worsened significantly in the last 48 hours. He says last night he checked his pulse ox which read low reading in the 70s. He said he leaned up so he could get up his oxygen to the mid 80s. He has been requiring to be more of an upright position to feel comfortable to breathe. He is not on any oxygen at home. He does not carry a history of any heart failure that he knows of. Denies any chest pain at this time, nausea, vomiting, diarrhea ED course: 136/75, respiratory 18, pulse 74, temperature 97.5, requiring 3 L n josefa cannula saturating 91%. Chest x-ray shows findings of pulmonary vascular congestion and some cardiomegaly. Initial troponin 404. EKG does not show any acute ischemic changes. BNP 22,000. Hyperkalemic 5.4, sodium 135, creatinine 3.1. Baseline around 2.5. Procalcitonin 0.13. Patient was given Lasix 40 IV x1. COVID test was ordered. Blood cultures were ordered. Results are pending at the time. Medications/Allergies Home Medications Medication Instructions Recorded Confirmed Last Taken Type amlodipine 10 mg tablet 10 mg PO QAM 10/11/20 11/29/22 11/28/22 History gabapentin 300 mg capsule 300 mg PO BEDTIME 10/11/20 11/29/22 11/28/22 History aspirin 81 mg chewable tablet 81 mg PO QAM 10/30/21 11/29/22 11/28/22 History cyanocobalamin (vitamin B-12) 1,000 mcg IM Q30D 10/30/21 11/29/22 Unknown Histo ry 1,000 mcg/mL injection solution fluticasone 100 mcg-salmeterol 50 1 inh inhalation BID #60 ea 11/02/21 11/29/22 Unknown Rx mcg/dose blistr powdr for inhalation (Advair Diskus) insulin lispro 100 unit/mL See Rx Instructions .Route 11/02/21 11/29/22 Unknown Rx subcutaneous pen (Humalog KwikPen .COMPLEX #0 mL (U-100) Insulin) insulin detemir U-100 100 unit/mL 52 unit SUBCUT BID 04/16/22 11/29/22 04/16/22 History (3 mL) subcutaneous pen (Levemir FlexTouch U-100 Insulin) omeprazole 40 mg capsule,delayed 40 mg PO DAILY 04/16/22 11/29/22 04/16/22 Hi story release blood-glucose meter,continuous #1 ea 04/23/22 11/29/22 Unknown Rx (Dexcom G6 Business Architect) blood-glucose sensor (Dexcom G6 #9 ea 04/23/22 11/29/22 Unknown Rx Sensor device) blood-glucose transmitter (Dexcom #3 ea 04/23/22 11/29/22 Unknown Rx G6 Transmitter device) ciprofloxacin HCl 500 mg tablet 500 mg PO BID #42 tabs 11/12/22 11/29/22 11/28/22 Rx albuterol sulfate 90 mcg/actuation 1 puff inhalation Q6H PRN 11/29/22 11/29/22 Unknown History aerosol inhaler shortness of breath or wheezing atorvastatin 40 mg tablet 40 mg PO BEDTIME 11/29/22 11/29/22 11/28/22 History famotidine 20 mg tablet 20 mg PO BID 11/29/22 11/29/22 11/28/22 History metoprolol tartrate 100 mg tablet 100 mg PO BID 11/29/22 11/29/22 11/28/22 History pregabalin 200 mg capsule (Lyrica) 200 mg PO TID 11/29/22 11/29/22 11/28/22 History Allergies Allergy/AdvReac Type Severity Reaction Status Date / Time No Known Allergies Allergy Verified 11/29/22 11:09 PFSH Acute PFSH: Medical History Acute kidney injury superimposed on CKD 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 Chronic osteomyelitis Diabetes Hyperlipidemia Neuropathy Onychomycosis of nail of digit of hand Uncontrolled type 2 diabetes with neuropathy Surgical History H/O circumcision H/O colonoscopy 7 yrs ago Status post debridement of ulcer of heel Family History Brother Cancer Sister Lung disease Mother Heart failure Father Chronic kidney failure Denies family history of Anesthesia complication Bleeding disorder Social History Smoking and tobacco status: former smoker Second hand smoke exposure: No Alcohol intake: never Adopted: No Lives independently: Yes Marital status: Single Current occupational status: disabled Vitals/I&O/Wt Last Vital Signs Temp 97.5 F L 11/29/22 09:19 Pulse 74 11/29/22 09:19 Resp 18 11/29/22 09:19 BP 136/75 11/29/22 11:00 Pulse Ox 91 11/29/22 11:00 O2 Del Method 11/29/22 10:10 O2 Flow Rate 3 11/29/22 10:10 Weight last 48 hrs Weight 127.006 kg Physical Exam Narrative: General: Alert oriented x3, patient seen sitting up in bed on 3 L nasal cannula. HEENT: Normocephalic, atraumatic, EOMI, Cardio: Regular rate rhythm, normal S1-S2 Respiratory: Crackles at bases bilaterally. GI: Abdomen soft, nontender, nondistended, bowel sounds + Behavior: Appropriate and cooperative Extremities: No apparent edema noted. Both legs wrapped with bandage by wound care clinic. Data 11/29/22 09:31 11/29/22 10:08 Micro: Microbiology 11/29/22 10:11 Blood Culture - Preliminary Blood SPECIMEN COLLECTED 11/29/22 10:08 Blood Culture - Preliminary Blood SPECIMEN COLLECTED A&P Assessment and plan (1) Congestive heart failure: (2) Hyperkalemia: (3) Hypoxia: (4) Chronic kidney disease: (5) Type 2 diabetes mellitus: (6) 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: (7) Diabetic ulcer of foot associated with diabetes mellitus due to underlying condition, with fat layer exposed: (8) Hyperkalemia: Plan #New onset congestive heart failure, type unknown. Is decompensated at this time #Diabetes mellitus type 2 #ARJUN on CKD #Acute hypoxia requiring supplemental oxygen with nasal cannula #Chronic diabetic foot wounds #Hyperkalemia #NSTEMI, possibly type II however troponin series are not resulted yet. ? Follow troponin series. 2-hour troponin 6-hour troponin is pending at this time ? Check echocardiogram ? Placed on Lasix 40 IV twice daily ? ARJUN is possibly due to cardiorenal syndrome due to fluid overload. ? Avoid nephrotoxic's ? Continue to wean off oxygen as able ? Continue oxygen as needed ? Continue on Levemir 40 units twice daily. Home dose is 52 units twice daily. Will order lower dose due to kidney dysfunction. ? Check blood sugars ACHS. Placed on sliding scale insulin moderate intensity ? Continue aspirin, atorvastatin, amlodipine, omeprazole, Lopressor ? I will start patient on a heparin drip to cover for NSTEMI ? We will consult cardiology after echocardiogram has resulted. Patient may require an angiogram prior to discharge ? Continue wound care for foot wounds. - K is 5.4. Hopefully will come down with lasix. WIll recheck BMP at 6 pm. Wound care instructions: DM ulcer: elevate legs to the level of the heart or above for 30 min daily and/or when sitting, avoid standing for long periods of time, wear own compression stockings every day, put compression stockings on every morning and remove every night, clean site with dakins 0.125% and 4x4 gauze, apply drawtex and hydralock. Apply juzo wraps daily, SN to apply 2 times a week. patient to apply when nurse not in home Full code DVT prophylaxis: Heparin drip Attestations Medical Necessity Statement*: Will cross greater than 2 midnight stay for management of new onset congestive heart failure Diagnoses Congestive heart failure I50.9 Hyperkalemia E87.5 Hypoxia R09.02 Chronic kidney disease N18.9 Type 2 diabetes mellitus E11.9 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 E11.22 Diabetic ulcer of foot associated with diabetes mellitus due to underlying condition, with fat layer exposed E08.621; L97.502 Hyperkalemia E87.5
--- NOTE | 2022-11-29 12:37 | USCV_ITS ---
Tim Robison Age: 57 Gender: M : 1965 Exam Date: 11/29/2022 13:34 Ordering Phys: Tsering Mary MD Technologist: Rishi Ribeiro Exam Location: [facility] [place]_ Indication: new onset of chf BP: 145 / 80 HR: 72 Rhythm: Sinus Technical Quality: Adequate MEASUREMENTS (Male / Female) Normal Values 2D ECHO LV Diastolic Diameter PLAX 3.7 cm 4.2 - 5.9 / 3.9 - 5.3 cm LV Systolic Diameter PLAX 2.5 cm IVS Diastolic Thickness 1.4 cm 0.6 - 1.0 / 0.6 - 0.9 cm IVS Systolic Thickness 1.2 cm LVPW Diastolic Thickness 1.6 cm 0.6 - 1.0 / 0.6 - 0.9 cm LVPW Systolic Thickness 1.4 cm LVOT Diameter 2.1 cm LV Ejection Fraction 2D Teich 62.6 % LV Ejection Fraction MOD 2C 57.4 % LV Ejection Fraction 2C AL 57.5 % LA Diameter 4.9 cm M-MODE Aortic Annulus Diameter 3.9 cm LA Ao Ratio MM 1.2 MV E Point Septal Separation 2.4 cm FINDINGS Left Ventricle Normal left ventricular size and systolic function, EF 65 %. Mild left ventricular hypertrophy. No regional wall motion abnormalities. Right Ventricle Right ventricle not well visualized. Right Atrium Right atrium not well visualized. Left Atrium Normal left atrial size. Mitral Valve No gross abnormalities noted Aortic Valve No gross abnormalities noted Tricuspid Valve Tricuspid valve not well visualized. Pulmonic Valve Pulmonic valve not well visualized. Pericardium No pericardial effusion. Aorta Normal aortic annulus size. IVC Inferior vena cava not visualized. CONCLUSIONS Normal left ventricular size and systolic function, EF 65 %. Mild left ventricular hypertrophy. No regional wall motion abnormalities. No gross abnormalities are noted in the aortic and mitral valves No pericardial effusion The right-sided structures could not be visualized Technically difficult study because of the poor ultrasonic window. Dr Laurita Love MD FACC (Electronically Signed) Final Date: 29 November 2022 18:34 S
[2022-11-29 12:49] LABS: Troponin 5 2HR 415.2 ng/L (0-15); Troponin 5 2HR Delta -26.8 ABS# (0-10)
--- NOTE | 2022-11-29 12:51 | ECG_ITS ---
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 Measurements Intervals [place] Rate: 73 P: 31 [place]: 175 QRS: 125 QRSD: 138 T: 39 QT: 396 QTc: 438 Interpretive Statements SINUS RHYTHM RIGHT BUNDLE BRANCH BLOCK [120+ ms QRS DURATION, UPRIGHT V1, 40+ ms S IN I/aVL/V4/V5/V6] LEFT POSTERIOR FASCICULAR BLOCK [QRS AXIS > 109, INFERIOR Q] POSSIBLE SEPTAL MYOCARDIAL INFARCTION , OF INDETERMINATE AGE [30 ms Q WAVE IN V1/V2] Compared to ECG 11/29/2022 10:48:42 Left posterior fascicular block now present Myocardial infarct finding still present Electronically Signed On 11-29-2022 18:10:09 SENIOR CREDIT ANALYST by Davin Diaz M.D. [id number]
[2022-11-29] MEDS: pantoprazole 40 mg SDV IVP (12:53)
[2022-11-29 13:31] LABS: Estmated Average Glucose 203; Hemoglobin A1C 8.7 % (4.0-6.0)
[2022-11-29 13:44] LABS: Chol HDL Ratio 3.55 mg/dL (1.0-5.00); Cholesterol 142 mg/dL (0-200); HDL Cholesterol 40 mg/dL (60-100); LDL Cholesterol Calculated 81 mg/dL (50-129); LDL HDL Ratio 2.03 RATIO (0.00-3.22); Thyroid Stimulating Hormone 2.21 uIU/mL (0.27-4.20); Triglycerides 103 mg/dL (0-150)
--- NOTE | 2022-11-29 15:26 | ECG_ITS ---
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 Measurements Intervals [place] Rate: 74 P: 32 [place]: 178 QRS: 106 QRSD: 133 T: 39 QT: 402 QTc: 447 Interpretive Statements SINUS RHYTHM RIGHT AXIS DEVIATION [QRS AXIS > 100] RIGHT BUNDLE BRANCH BLOCK [120+ ms QRS DURATION, UPRIGHT V1, 40+ ms S IN I/aVL/V4/V5/V6] POSSIBLE SEPTAL MYOCARDIAL INFARCTION , OF INDETERMINATE AGE [30 ms Q WAVE IN V1/V2] Compared to ECG 11/29/2022 13:08:46 Right-axis deviation now present Left posterior fascicular block no longer present Myocardial infarct finding still present Electronically Signed On 11-29-2022 18:09:56 AWNING HANGER SUPERVISOR by Davin Diaz M.D. [id number]
[2022-11-29 15:31] LABS: Adenovirus Not Detected (NOT DETECT); Chlamydia Pneumoniae Not Detected (NOT DETECT); Coronavirus 229E,HKU1,NL63,OC4 Not Detected (NOT DETECT); Human Metapneumovirus Not Detected (NOT DETECT); Human Rhinovirus/Enterovirus Not Detected (NOT DETECT); Influenza A Not Detected (NOT DETECT); Influenza A H1 Not Detected (NOT DETECT); Influenza A H1-2009 Not Detected (NOT DETECT); Influenza A H3 Not Detected (NOT DETECT); Influenza B Not Detected (NOT DETECT); Mycoplasma Pneumoniae Not Detected (NOT DETECT); Parainfluenza Virus Type 1 Not Detected (NOT DETECT); Parainfluenza Virus Type 2 Not Detected (NOT DETECT); Parainfluenza Virus Type 3 Not Detected (NOT DETECT); Parainfluenza Virus Type 4 Not Detected (NOT DETECT); Respiratory Syncytial Virus A Not Detected (NOT DETECT); Respiratory Syncytial Virus B Not Detected (NOT DETECT); SARS-COV-2 Not Detected (NOT DETECT)
[2022-11-29 17:23] LABS: Glucose Point of Care 142 mg/dL (70-110)
--- NOTE | 2022-11-29 17:23 | PC.NURSE ---
Dr. Mary notified via VOALTE of 6 hour troponin of 421. Attempted to call as well. Pt has bilateral dressings to his legs. He reports home health changes his dressings every 2 days and they were dressed yesterday. Will consult with Dr. Mary to see what treament she would like while inpatient.
[2022-11-29] MEDS: metoprolol tartrate 50 mg Tablet 100 MG PO (17:44)
[2022-11-29] MEDS: insulin lispro 100 unit/1 mL SUBCUT ×2 (17:44→21:29)
--- NOTE | 2022-11-29 21:04 | P.CONIM_ITS ---
Providers/Reason For Consult Consulting Physician/Specialty*: FAY Love MD/cardiology Reason for Consult*: Patient with heart failure and elevated troponin T Requesting Physician: Dr. Mary Attending Physician: Tsering Mary MD Primary Care Provider: SERAFIN Reza History of Present Illness History of Present Illness Tim Robison is a 57 year old male with a history of high blood pressure, chronic kidney disease, type 2 diabetes, dyslipidemia he is presenting with complaints of shortness of breath since last night. He was found to have features of congestive heart failure . His blood test revealed elevated troponin T as well. Cardiology consult is requested for further cardiac evaluation recommendations. This patient has no previous history for coronary artery disease, myocardial infarction or congestive heart failure. He is being treated at the wound care clinic for a nonhealing ulcer in his right leg. He has a chronic ulcer on the left leg with osteomyelitis. He apparently has been his baseline state of health up until last night when he started having shortness of breath which got acutely worse. He was coughing and wheezing. No fever or chills. No chest pain or abdominal pain. Since there was no relief of the symptoms, he was brought to the emergency room this morning. He has a history of hypertension, diabetes and dyslipidemia for the last more than 20 years. He is diagnosed with chronic kidney disease for the last 5 years or so. He is being followed by the nephrology service. His kidney function has been fairly stable for a period of time. But now there seems to be acute worsening of the kidney function as well. Denies any smoking abuse or alcohol abuse. As a teenager, smoked and also abused alcohol for few years. He has a sister who had a myocardial infarction in his 40s. Another sister had a myocardial infarction in her 50s. One of his brothers also had myocardial infarction in his 50s. Mother had a myocardial infarction in her 60s. No other relevant family history. He is and lives alone. Review of Systems Narrative: CONSTITUTIONAL: No fever or chills. EYES: No blurring of vision or other visual disturbances lately. ENT: No hoarseness of voice, auditory disturbances or sore throat. CARDIOVASCULAR: As mentioned above. RESPIRATORY: No significant cough. GASTROINTESTINAL: No hematemesis or melena. GENITOURINARY: Chronic kidney disease INTEGUMENTARY: No skin rashes or history of skin cancer. NEURO: No transient ischemic attacks or amaurosis. PSYCHIATRIC: No history of psychosis or major depression. HEMATOLOGIC: No bleeding disorders or significant anemia. ENDOCRINE: History of type 2 diabetes and diabetic neuropathy. Musculoskeletal: Chronic osteomyelitis of the left leg and possible osteomyelitis of the right leg. Nonhealing bilateral diabetic ulcers ALLERGY/IMMUNOLOGY: As mentioned above. Medications/Allergies Home Medications Medication Instructions Recorded Confirmed Last Taken Type amlodipine 10 mg tablet 10 mg PO QAM 10/11/20 11/29/22 11/28/22 History gabapentin 300 mg capsule 300 mg PO BEDTIME 10/11/20 11/29/22 11/28/22 History aspirin 81 mg chewable tablet 81 mg PO QAM 10/30/21 11/29/22 11/28/22 History cyanocobalamin (vitamin B-12) 1,000 mcg IM Q30D 10/30/21 11/29/22 Unknown History 1,000 mcg/mL injection solution fluticasone 100 mcg-salmeterol 50 1 inh inhalation BID #60 ea 11/02/21 11/29/22 Unknown Rx mcg/dose blistr powdr for inhalation (Advair Diskus) insulin lispro 100 unit/mL See Rx Instructions .Route 11/02/21 11/29/22 Unknown Rx subcutaneous pen (Humalog KwikPen .COMPLEX #0 mL (U-100) Insulin) insulin detemir U-100 100 unit/mL 52 unit SUBCUT BID 04/16/22 11/29/22 04/16/22 History (3 mL) subcutaneous pen (Levemir FlexTouch U-100 Insulin) omeprazole 40 mg capsule,delayed 40 mg PO DAILY 04/16/22 11/29/22 04/16/22 History release blood-glucose meter,continuous #1 ea 04/23/22 11/29/22 Unknown Rx (Dexcom G6 Media Job Titles) blood-glucose sensor (Dexcom G6 #9 ea 04/23/22 11/29/22 Unknown Rx Sensor device) blood-glucose transmitter (Dexcom #3 ea 04/23/22 11/29/22 Unknown Rx G6 Transmitter device) ciprofloxacin HCl 500 mg tablet 500 mg PO BID #42 tabs 11/12/22 11/29/22 11/28/22 Rx albuterol sulfate 90 mcg/actuation 1 puff inhalation Q6H PRN 11/29/22 11/29/22 Unknown History aerosol inhaler shortness of breath or wheezing atorvastatin 40 mg tablet 40 mg PO BEDTIME 11/29/22 11/29/22 11/28/22 History famotidine 20 mg tablet 20 mg PO BID 11/29/22 11/29/22 11/28/22 History metoprolol tartrate 100 mg tablet 100 mg PO BID 11/29/22 11/29/22 11/28/22 History pregabalin 200 mg capsule (Lyrica) 200 mg PO TID 11/29/22 11/29/22 11/28/22 History Allergies Allergy/AdvReac Type Severity Reaction Status Date / Time No Known Allergies Allergy Verified 11/29/22 11:09 Current Medications Generic Name Dose Route Start Last Admin Trade Name Freq PRN Reason Stop Dose Admin Furosemide 40 mg 11/29/22 18:00 11/29/22 17:44 Furosemide 10 Mg/Ml Sdv 4ml IVP 40 mg BID KELSEY Administration Insulin Human Lispro 0 unit 11/29/22 18:00 11/29/22 17:44 Insulin Lispro 100 Unit/1 Ml SUBCUT 4 unit WM&BEDTIME KELSEY Administration Protocol Metoprolol Tartrate 100 mg 11/29/22 18:00 11/29/22 17:44 Metoprolol Tartrate 50 Mg Tablet PO 100 mg BID KELSEY Administration Pantoprazole Sodium 40 mg 11/29/22 12:45 11/29/22 12:53 Pantoprazole 40 Mg Sdv IVP 40 mg Q24H KELSEY Administration PFSH Acute PFSH: Medical History Acute kidney injury superimposed on CKD 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 Chronic osteomyelitis Diabetes Hyperlipidemia Neuropathy Onychomycosis of nail of digit of hand Uncontrolled type 2 diabetes with neuropathy Surgical History H/O circumcision H/O colonoscopy 7 yrs ago Status post debridement of ulcer of heel Family History Brother Cancer Sister Lung disease Mother Heart failure Father Chronic kidney failure Denies family history of Anesthesia complication Bleeding disorder Social History Smoking and tobacco status: former smoker Second hand smoke exposure: No Alcohol intake: never Adopted: No Lives independently: Yes Marital status: Single Current occupational status: disabled Vitals/I&O/Wt Last Vital Signs Temp 97.5 F L 11/29/22 09:19 Pulse 73 11/29/22 20:24 Resp 18 11/29/22 20:24 BP 133/70 11/29/22 18:05 Pulse Ox 95 11/29/22 20:24 O2 Del Method 11/29/22 20:24 O2 Flow Rate 3 11/29/22 20:24 11/29/22 11/29/22 11/29/22 06:59 14:59 22:59 Intake Total 380 / 380 Balance 380 / 380 Weight last 48 hrs Weight 286 lb 8 oz Weight 280 lb Physical Exam Urinary Catheter Management: Reyes: Cath Placed During This Visit: yes Urinary Catheter Date of Insertion: 11/29/22 Urinary Catheter Time of Insertion: 13:30 Data 11/29/22 09:31 11/29/22 10:08 Other Labs: Laboratory Last Values WBC 13.8 10^3/uL (4.0-10.0) H 11/29/22 09:31 RBC 4.78 10^6/uL (4.1-5.3) 11/29/22 09:31 Hgb 12.8 g/dL (11.7-16.6) 11/29/22 09:31 Hct 41.2 % (42.0-52.0) L 11/29/22 09:31 MCV 86.2 fl (80-94) 11/29/22 09:31 MCH 26.8 pg (28.0-34.0) L 11/29/22 09:31 MCHC 31.1 g/dL (30.0-36.0) 11/29/22 09:31 RDW 16.9 % (12.1-15.1) H 11/29/22 09:31 Plt Count 255 10^3/cmm (130-400) 11/29/22 09:31 MPV 13.5 fL (7.4-10.4) H 11/29/22 09:31 Neut % (Auto) 85.9 % 11/29/22 09:31 Lymph % (Auto) 6.8 % 11/29/22 09:31 [place] % (Auto) 5.6 % 11/29/22 09:31 Eos % (Auto) 0.5 % 11/29/22 09:31 Baso % (Auto) 0.7 % 11/29/22 09:31 Neut # (Auto) 11.86 10^3/uL (1.8-7.7) H 11/29/22 09:31 Lymph # (Auto) 0.9 10^3/uL (0.8-4.8) 11/29/22 09:31 [place] # (Auto) 0.8 10^3/uL (0.2-0.9) 11/29/22 09:31 Eos # (Auto) 0.1 10^3/uL (0.0-0.8) 11/29/22 09:31 Baso # (Auto) 0.1 10^3/uL (0.0-0.1) 11/29/22 09:31 Nucleated RBC % (auto) 0 % 11/29/22 09:31 Nucleated RBCs # 0.0 /100WBC 11/29/22 09:31 Specimen Type Arterial 11/29/22 09:50 Sample Site Radial, right 11/29/22 09:50 ABG pH 7.31 (7.35-7.45) L 11/29/22 09:50 ABG pCO2 42.6 mmHg (35-45) 11/29/22 09:50 ABG pO2 61.9 mmHg (80.0-100.0) L 11/29/22 09:50 ABG HCO3 21.4 mmol/L (22-26) L 11/29/22 09:50 ABG Base Excess -4.7 mmol/L (-2.0-2.0) L 11/29/22 09:50 Pedro Test Pos 11/29/22 09:50 Hematocrit 37.2 % (42-52) L 11/29/22 09:50 Hgb O2 Saturation 90.3 % (95-100) L 11/29/22 09:50 Carboxyhemoglobin 1.6 %THgb (0.4-20.1) 11/29/22 09:50 Methemoglobin 0.5 % (0.4-1.5) 11/29/22 09:50 Total Hemoglobin 12.2 g/dL (14-18) L 11/29/22 09:50 O2 Delivery Device Nc 11/29/22 09:50 O2 Liters/Min 4.0 % 11/29/22 09:50 Agricultural Education Professor ID [email or web address] 11/29/22 09:50 Sodium 135 mmol/L (136-145) L 11/29/22 10:08 Potassium 5.4 mmol/L (3.5-5.1) H 11/29/22 10:08 Chloride 102 mmol/L (98-107) 11/29/22 10:08 Carbon Dioxide 19 mmol/L (22-29) L 11/29/22 10:08 Anion Gap 19.4 (5-19) H 11/29/22 10:08 BUN 37 mg/dL (6-20) H 11/29/22 10:08 Creatinine 3.1 mg/dL (0.7-1.2) H 11/29/22 10:08 GFR Calculation 21.0 mL/min (90-130) L 11/29/22 10:08 Glucose 147 mg/dL (65-115) H 11/29/22 10:08 POC Glucose 142 mg/dL (70-110) H 11/29/22 17:04 Estimat Average Glucose 203 11/29/22 09:28 Hemoglobin A1c 8.7 % (4.0-6.0) H 11/29/22 09:28 Calculated Osmolality 291 mOsm/kg (285-295) 11/29/22 10:08 Lactic Acid 0.8 mmol/L (0.5-2.2) 11/29/22 10:08 Calcium 8.6 mg/dL (8.5-10.5) 11/29/22 10:08 Total Bilirubin 0.4 mg/dL (0.15-1.2) 11/29/22 10:08 AST 52 U/L (0-40) H 11/29/22 10:08 ALT 23 U/L (0-41) 11/29/22 10:08 Alkaline Phosphatase 291 U/L (40-130) H 11/29/22 10:08 Troponin T Baseline 442 ng/L (0-15) H* 11/29/22 10:00 Troponin T 120 Minute 415.2 ng/L (0-15) H 11/29/22 11:56 Delta Troponin T -26.8 ABS# (0-10) L 11/29/22 11:56 Troponin T Hi Sens 6Hr 421.0 ng/L (0-15) H 11/29/22 16:00 Troponin T Hi Sens 6Hr Delta -21.0 ng/L (0-12) L 11/29/22 16:00 NT-Pro-B Natriuret Pep 70489 pg/mL (0-125) H 11/29/22 10:08 Total Protein 7.6 g/dL (6.6-8.7) 11/29/22 10:08 Albumin 3.1 g/dL (3.5-5.2) L 11/29/22 10:08 Globulin 4.5 g/dL (1.3-4.6) 11/29/22 10:08 Triglycerides 103 mg/dL (0-150) 11/29/22 10:00 Cholesterol 142 mg/dL (0-200) 11/29/22 10:00 LDL Cholesterol, Calc 81 mg/dL (50-129) 11/29/22 10:00 HDL Cholesterol 40 mg/dL (60-100) L 11/29/22 10:00 LDL/HDL Ratio 2.03 RATIO (0.00-3.22) 11/29/22 10:00 Cholesterol/HDL Ratio 3.55 mg/dL (1.0-5.00) 11/29/22 10:00 Procalcitonin 0.13 ng/mL (0-0.5) 11/29/22 10:08 TSH 2.21 uIU/mL (0.27-4.20) 11/29/22 10:00 Coronavirus 229E (PCR) Not detected (NOT DETECT) 11/29/22 13:25 SARS-CoV-2 (PCR) Not detected (NOT DETECT) 11/29/22 13:25 Micro: Microbiology 11/29/22 10:11 Blood Culture - Preliminary Blood SPECIMEN COLLECTED 11/29/22 10:08 Blood Culture - Preliminary Blood SPECIMEN COLLECTED Echo: My impression: Limited 2D echocardiogram from 11/29/2022 normal left ventricular size and systolic function, EF 65 %. ?Mild left ventricular hypertrophy. ?No regional wall motion abnormalities. ?No gross abnormalities are noted in the aortic and mitral valves ?No pericardial effusion ?The right-sided structures could not be visualized ?Technically difficult study because of the poor ultrasonic ?window. EKG 1: My Interpretation: The EKG shows sinus rhythm with right bundle branch block. First-degree AV block. Small q waves in lead V2 to suggesting possible old septal NE. A&P Assessment and plan (1) Acute diastolic heart failure: The etiology is not clear. In view of the markedly elevated troponin T, most likely this patient had a non-ST elevation myocardial infarction last night causing the heart failure. He is stable hemodynamically. The troponin T seems to be trending down. No significant wall motion normalities by echocardiogram. The overall LV ejection fraction within normal limits. At this point, patient will be treated with IV heparin, p.o. Plavix, aspirin, beta-sharif, statin and other symptomatic measures. (2) Type 2 diabetes mellitus: Aggressive management of the diabetes would be appropriate (3) 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: Patient seems to have an acute on chronic kidney disease. Kidney function needs to be closely monitored. Patient requires a cardiac catheterization to further evaluate his coronary status. However we will wait till the kidney function is stabilized. (4) Hyperkalemia: Management as per the primary (5) Elevated troponin: Most likely this is related to a non-ST elevation myocardial infarction. Once the heart failure is properly treated and also once the kidney function is stabilized, we may consider doing a cardiac catheterization to further evaluate the coronary status and decide on further management. Plan Based on the patient's clinical progress, further recommendations will be made. Thank you for the opportunity to evaluate this patient and make these r ecommendations. Consult Attestations Medical Necessity Statement: Patient requires continued hospital stay for close monitoring and further management Coding Level of Care Code 53813 Diagnoses Acute diastolic heart failure I50.31 Type 2 diabetes mellitus E11.9 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 E11.22 Hyperkalemia E87.5 Elevated troponin R77.8
[2022-11-29 21:14] LABS: Glucose Point of Care 199 mg/dL (70-110)
[2022-11-29] MEDS: gabapentin 300 mg Capsule PO (21:29)
[2022-11-29] MEDS: insulin glargine 100 units/1 mL 40 UNIT SUBCUT (21:29)
[2022-11-29] MEDS: atorvastatin 40 mg Tablet PO (21:29)
[2022-11-29] MEDS: clopidogrel 300 mg Tablet PO (23:41)
[2022-11-30] VITALS (122 sets, daily range): BP systolic 121–150; BP diastolic 69–82; PULSE 60–87; RESP 10–41; TEMP 36.8–37.4; O2SAT 69–98
[2022-11-30 03:40] LABS: Basophils # 0.1 10^3/uL (0.0-0.1); Basophils % 0.7 %; Eosinophils # 0.1 10^3/uL (0.0-0.8); Eosinophils % 0.8 %; Hematocrit 33.3 % (42.0-52.0); Hemoglobin 10.6 g/dL (11.7-16.6); Lymphocytes # 0.7 10^3/uL (0.8-4.8); Lymphocytes % 6.1 %; Mean Corpuscular HGB Conc 31.8 g/dL (30.0-36.0); Mean Corpuscular Hemoglobin 27.4 pg (28.0-34.0); Mean Platelet Volume 12.4 fL (7.4-10.4); Monocytes % 8.8 %; Neutrophils # 9.81 10^3/uL (1.8-7.7); Nucleated Red Blood Cells % 0 %; Platelet Count 243 10^3/cmm (130-400); Red Blood Count 3.87 10^6/uL (4.1-5.3); Red Cell Distribution Width 16.8 % (12.1-15.1); White Blood Count 11.8 10^3/uL (4.0-10.0)
[2022-11-30 04:03] LABS: Alanine Aminotransferase 14 U/L (0-41); Albumin Level 2.3 g/dL (3.5-5.2); Alkaline Phosphatase 202 U/L (40-130); Anion Gap 15.7 (5-19); Aspartate Amino Transferase 27 U/L (0-40); Blood Urea Nitrogen 30 mg/dL (6-20); Calcium 7.9 mg/dL (8.5-10.5); Carbon Dioxide 23 mmol/L (22-29); Chloride 102 mmol/L (98-107); Globulin 3.5 g/dL (1.3-4.6); Glomerular Filtration Rate 20.3 mL/min (90-130); Glucose 135 mg/dL (65-115); Magnesium 1.9 mg/dL (1.7-2.3); Osmolality Calculated 290 mOsm/kg (285-295); Potassium 4.7 mmol/L (3.5-5.1); Sodium 136 mmol/L (136-145); Total Bilirubin 0.4 mg/dL (0.15-1.2); Total Protein 5.8 g/dL (6.6-8.7)
[2022-11-30] MEDS: amlodipine 10 mg Tablet PO (05:32)
[2022-11-30] MEDS: aspirin 81 mg Chew Tablet PO (05:32)
[2022-11-30 06:09] LABS: Glucose Point of Care 137 mg/dL (70-110)
[2022-11-30] MEDS: FUROsemide 10 mg/mL SDV 4mL 40 MG IVP ×2 (08:39→17:16)
[2022-11-30] MEDS: clopidogrel 75 mg Tablet PO (08:39)
[2022-11-30] MEDS: metoprolol tartrate 50 mg Tablet 100 MG PO ×2 (08:39→17:16)
--- NOTE | 2022-11-30 10:50 | PC.CHAP ---
Pastoral Care Encounter/Spiritual Assessment Type of Contact [] Declined entry level marketing assistant visit [] Patient/Family/Request visit [] Outpatient visit [] Follow-up visit [] Physician referral [] Code/Alert [x] Routine visit [] Staff referral [] Actively dying [] Patient sleeping [] Family support [] [] Out of room [] Palliative care [] [x] Receiving care in room [] Pre-surgical visit [] Trauma [] Long length of stay [] ICU visit [] Other: Relational/Emotional Strength [x] Patient feels connected with others/family/visitors/staff [] Distress [] Loneliness/isolation [] Abandonment Spirituality of Patient [x] Person of Macy [] Attends Lutheran of their Macy [x] Believes in Prayer [] Reads Bible or Latter Day materials [] There are Spiritual issues to be addressed Utility Bill Collection Clerk Interventions [x] Prayer [] Active listening [] Non-anxious presence [] Spiritual/emotional support [] Crisis/trauma care [] Spiritual counseling [] Bereavement support [] Provided bereavement packet [x] Provided Bible/devotional materials [] Provided toy/stuffed animal, coloring book to patient or family member [] Provided Communion [] Anointing/[place] [] Salvation [x] Completed spiritual assessment [] Other: Impact on Illness or Injury [] Angry [] Fearful [] Anxious [] Often cries [] Exhaustion [] Unable to work [] Unable to attend denominational [] Unable to walk/stand [] Unable to read [] Unable to drive [] Unable to eat/drink [] Unable to sleep [] Unable to be with family [] Patient intubated [] Other: Summary Time spent with patient 15min
--- NOTE | 2022-11-30 12:06 | PM.PN ---
Subjective Subjective: seen this am no acute events overnight says he feels a lot better symptomatically on 4L NC 1700 urine output since admission Vitals/I&O/Wt Last Vital Signs Temp 99.4 F 11/30/22 04:00 Pulse 81 11/30/22 10:45 Resp 31 H 11/30/22 10:45 BP 121/69 11/30/22 10:45 Pulse Ox 88 L 11/30/22 10:45 O2 Del Method 11/30/22 08:00 O2 Flow Rate 4 11/30/22 08:00 11/29/22 11/30/22 11/30/22 22:59 06:59 14:59 Intake Total 860 / 860 420 / 1280 440 / 440 Output Total 1700 / 1700 Balance 860 / 860 -1280 / -420 440 / 440 Weight last 48 hrs Weight 131.859 kg Weight 129.954 kg Weight 127.006 kg Physical Exam Narrative: General: Alert oriented x3, patient seen sitting up in bed on 3 L nasal cannula. HEENT: Normocephalic, atraumatic, EOMI, Cardio: Regular rate rhythm, normal S1-S2 Respiratory: Clear to auscultation b/l, no apparent crackles GI: Abdomen soft, nontender, nondistended, bowel sounds + Behavior: Appropriate and cooperative Extremities: No apparent edema noted. Both legs wrapped with bandage by wound care clinic. Urinary Catheter Management: Reyes: Cath Placed During This Visit: yes Reason for Continuing Indwelling Catheter: Accurate Measurement of Urinary Output in Critically Ill Patients Urinary Catheter Date of Insertion: 11/29/22 Urinary Catheter Time of Insertion: 13:30 Data 11/30/22 03:18 11/30/22 03:18 Micro: Microbiology 11/29/22 10:11 Blood Culture - Preliminary Blood NEGATIVE TO DATE 11/29/22 10:08 Blood Culture - Preliminary Blood NEGATIVE TO DATE A&P Assessment and plan (1) Congestive heart failure: (2) Hyperkalemia: (3) Hypoxia: (4) Chronic kidney disease: (5) Type 2 diabetes mellitus: (6) 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: (7) Diabetic ulcer of foot associated with diabetes mellitus due to underlying condition, with fat layer exposed: (8) Hyperkalemia: Plan #Acute diastolic congestive heart failure #Diabetes mellitus type 2 #ARJUN on CKD #Acute hypoxia requiring supplemental oxygen with nasal cannula #Chronic diabetic foot wounds #Hyperkalemia #NSTEMI, possibly type II however troponin series are not resulted yet. ? Troponin delta negative however intial was 400 range. - Echo done last year shows EF 65-70% with diastolic failure ? Echocardiogram complete this admission: poor study, poor ultrasonic windows. EF 65%, mild LV hypertrophy. ? Placed on Lasix 40 IV twice daily ? ARJUN is possibly due to cardiorenal syndrome due to fluid overload? ? Avoid nephrotoxic's ? Continue to wean off oxygen as able ? Continue oxygen as needed ? Continue on lantus 40 units daily. Home dose is 52 units twice daily. Will order lower dose due to kidney dysfunction. ? Check blood sugars ACHS. Placed on sliding scale insulin moderate intensity ? Continue aspirin, atorvastatin, amlodipine, omeprazole, Lopressor ? I will start patient on a heparin drip to cover for NSTEMI ? We will consult cardiology after echocardiogram has resulted. Patient may require an angiogram prior to discharge ? Continue wound care for foot wounds. - Continue ciprofloxacin for leg wounds being managed as outpatient. Pt is not septic. He was to have an MRI done to r/o osteomyelitis of right foot as outpatient. Will talk with Dr. Sanchez. - Cardiology consulted. Plan for angiogram over weekend. - Pt may have component of pulmonary htn due to TAMIA. He will need sleep study as outpatient. Wound care instructions: DM ulcer: elevate legs to the level of the heart or above for 30 min daily and/or when sitting, avoid standing for long periods of time, wear own compression stockings every day, put compression stockings on every morning and remove every night, clean site with dakins 0.125% and 4x4 gauze, apply drawtex and hydralock. Apply juzo wraps daily, SN to apply 2 times a week. patient to apply when nurse not in home Full code DVT prophylaxis: Heparin drip Attestations Medical Necessity Statement*: Will cross greater than 2 midnight stay for management of new onset congestive heart failure Diagnoses Congestive heart failure I50.9 Hyperkalemia E87.5 Hypoxia R09.02 Chronic kidney disease N18.9 Type 2 diabetes mellitus E11.9 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 E11.22 Diabetic ulcer of foot associated with diabetes mellitus due to underlying condition, with fat layer exposed E08.621; L97.502 Hyperkalemia E87.5
[2022-11-30 12:40] LABS: Glucose Point of Care 326 mg/dL (70-110)
[2022-11-30] MEDS: pantoprazole 40 mg SDV IVP (12:42)
[2022-11-30] MEDS: insulin lispro 100 unit/1 mL SUBCUT ×3 (12:42→22:17)
--- NOTE | 2022-11-30 14:34 | PC.NURSE ---
Dressings remain in place. New order Per Dr. Mary to change dressings twice a week, on Saturday and Saturday. Orders noted and processed. Compression stockings to come off at .
--- NOTE | 2022-11-30 15:02 | PM.PN ---
Subjective Subjective: The patient is feeling better. No chest pain or chest tightness. No shortness of breath is much better. No fever or chills. No vitals are stable. Medications: Medication Review Details: Current Medications Acetaminophen (Acetaminophen 325 Mg Tablet) 650 mg PO Q6H PRN PRN Reason: Mild/Mod Pain Or Temp >/= 101 Albuterol/Ipratropium (Ipratropium-Albuterol 3 Ml Neb) 3 ml INHALATION Q6H.RESP PRN PRN Reason: SHORTNESS OF BREATH Amlodipine Besylate (Amlodipine 10 Mg Tablet) 10 mg PO QAM [facility] Last Admin: 11/30/22 05:32 Dose: 10 mg Aspirin (Aspirin 81 Mg Chew Tablet) 81 mg PO QAM [facility] Last Admin: 11/30/22 05:32 Dose: 81 mg Atorvastatin Calcium (Atorvastatin 40 Mg Tablet) 40 mg PO BEDTIME [facility] Last Admin: 11/29/22 21:29 Dose: 40 mg Ciprofloxacin HCl (Ciprofloxacin 500 Mg Tablet) 500 mg PO BID@0900,2100 [facility]; Protocol Clopidogrel Bisulfate (Clopidogrel 75 Mg Tablet) 75 mg PO DAILY [facility] Last Admin: 11/30/22 08:39 Dose: 75 mg Dextrose (Dextrose 50% Syringe 50 Ml) 25 ml IVP ONCE PRN; Protocol PRN Reason: hypoglycemia protocol Dextrose (Dextrose 50% Syringe 50 Ml) 50 ml IVP PRN PRN; Protocol PRN Reason: hypoglycemia protocol Furosemide (Furosemide 10 Mg/Ml Sdv 4ml) 40 mg IVP BID [facility] Last Admin: 11/30/22 08:39 Dose: 40 mg Gabapentin (Gabapentin 300 Mg Capsule) 300 mg PO BEDTIME [facility] Last Admin: 11/29/22 21:29 Dose: 300 mg Glucagon (Glucagon 1 Mg/Ml Inj 1 Ml) 1 mg IM ONCE PRN; Protocol PRN Reason: Adult Acute Hypoglycemia Prot. Heparin Sodium (Porcine) (Heparin 5,000 Unit/Ml Inj 1 Ml) 0 unit IV PRN PRN; Protocol PRN Reason: Heparin weight-base protocol Heparin Sodium/Sodium Chloride (Heparin Drip) 25,000 unit in 500 mls @ 0 mls/hr IV .Q0M [facility]; Protocol Dextrose (D5w) 500 mls @ 100 mls/hr IV ONCE PRN; Protocol PRN Reason: Adult Acute Hypoglycemia Prot Insulin Glargine (Insulin Glargine 100 Units/1 Ml) 40 unit SUBCUT BEDTIME [facility] Last Admin: 11/29/22 21:29 Dose: 40 unit Insulin Human Lispro (Insulin Lispro 100 Unit/1 Ml) 0 unit SUBCUT WM&BEDTIME [facility]; Protocol Last Admin: 11/30/22 12:42 Dose: 12 unit Metoprolol Tartrate (Metoprolol Tartrate 50 Mg Tablet) 100 mg PO BID [facility] Last Admin: 11/30/22 08:39 Dose: 100 mg Ondansetron HCl (Ondansetron 2 Mg/Ml Sdv 2 Ml) 4 mg IVP Q8H PRN PRN Reason: vomiting, or N/V if npo Pantoprazole Sodium (Pantoprazole 40 Mg Sdv) 40 mg IVP Q24H [facility] Last Admin: 11/30/22 12:42 Dose: 40 mg Vitals/I&O/Wt Last Vital Signs Temp 99.4 F 11/30/22 04:00 Pulse 82 11/30/22 11:00 Resp 21 H 11/30/22 11:00 BP 121/69 11/30/22 12:40 Pulse Ox 93 11/30/22 12:45 O2 Del Method 11/30/22 08:00 O2 Flow Rate 4 11/30/22 08:00 11/30/22 11/30/22 11/30/22 06:59 14:59 22:59 Intake Total 420 / 1280 880 / 880 Output Total 1700 / 1700 1000 / 1000 Balance -1280 / -420 -120 / -120 Weight last 48 hrs Weight 290 lb 11.2 oz Weight 286 lb 8 oz Weight 280 lb Physical Exam Narrative: GENERAL: The patient is alert and oriented times three. Not in any acute distress. HEENT: No significant pallor, icterus or lymphadenopathy.Oral cavity: There are no mucous membrane lesions. NECK: Trachea appears to be central. No masses noted. No JVD or thyromegaly appreciated. RESPIRATORY: Chest is symmetrical. No intercostals muscle retraction or any accessory muscle activation. There is no chest wall tenderness. Breath sounds are heard bilaterally. No rales or rhonchi heard. No evidence of any consolidation. BREASTS: Deferred. HEART: The heart sounds are normal. No S3 or S4. No significant murmurs. No pericardial rub ABDOMEN: No vessel pulsations or distention. No tenderness. No organomegaly appreciated. Bowel sounds are normally heard. : Deferred. RECTAL: Deferred. LYMPHATIC: No lymphadenopathy noted in the neck. EXTREMITIES: Both legs are bandaged. The peripheral pulses are palpable but weak bilaterally. MUSCULOSKELETAL: No acute joint deformities or swelling SKIN: No significant rashes or ecchymosis. NEUROPSYCHIATRIC: The patient is alert and oriented x3. Appears to be in a good mood. No tremors or rigidity noted. Urinary Catheter Management: Reyes: Cath Placed During This Visit: yes Reason for Continuing Indwelling Catheter: Accurate Measurement of Urinary Output in Critically Ill Patients Urinary Catheter Date of Insertion: 11/29/22 Urinary Catheter Time of Insertion: 13:30 Data 11/30/22 03:18 11/30/22 03:18 Other Labs: Laboratory Last Values WBC 11.8 10^3/uL (4.0-10.0) H 11/30/22 03:18 RBC 3.87 10^6/uL (4.1-5.3) L 11/30/22 03:18 Hgb 10.6 g/dL (11.7-16.6) L 11/30/22 03:18 Hct 33.3 % (42.0-52.0) L 11/30/22 03:18 MCV 86.0 fl (80-94) 11/30/22 03:18 MCH 27.4 pg (28.0-34.0) L 11/30/22 03:18 MCHC 31.8 g/dL (30.0-36.0) 11/30/22 03:18 RDW 16.8 % (12.1-15.1) H 11/30/22 03:18 Plt Count 243 10^3/cmm (130-400) 11/30/22 03:18 MPV 12.4 fL (7.4-10.4) H 11/30/22 03:18 Neut % (Auto) 83.0 % 11/30/22 03:18 Lymph % (Auto) 6.1 % 11/30/22 03:18 [place] % (Auto) 8.8 % 11/30/22 03:18 Eos % (Auto) 0.8 % 11/30/22 03:18 Baso % (Auto) 0.7 % 11/30/22 03:18 Neut # (Auto) 9.81 10^3/uL (1.8-7.7) H 11/30/22 03:18 Lymph # (Auto) 0.7 10^3/uL (0.8-4.8) L 11/30/22 03:18 [place] # (Auto) 1.0 10^3/uL (0.2-0.9) H 11/30/22 03:18 Eos # (Auto) 0.1 10^3/uL (0.0-0.8) 11/30/22 03:18 Baso # (Auto) 0.1 10^3/uL (0.0-0.1) 11/30/22 03:18 Nucleated RBC % (auto) 0 % 11/30/22 03:18 Nucleated RBCs # 0.0 /100WBC 11/30/22 03:18 Specimen Type Arterial 11/29/22 09:50 Sample Site Radial, right 11/29/22 09:50 ABG pH 7.31 (7.35-7.45) L 11/29/22 09:50 ABG pCO2 42.6 mmHg (35-45) 11/29/22 09:50 ABG pO2 61.9 mmHg (80.0-100.0) L 11/29/22 09:50 ABG HCO3 21.4 mmol/L (22-26) L 11/29/22 09:50 ABG Base Excess -4.7 mmol/L (-2.0-2.0) L 11/29/22 09:50 Pedor Test Pos 11/29/22 09:50 Hematocrit 37.2 % (42-52) L 11/29/22 09:50 Hgb O2 Saturation 90.3 % (95-100) L 11/29/22 09:50 Carboxyhemoglobin 1.6 %THgb (0.4-20.1) 11/29/22 09:50 Methemoglobin 0.5 % (0.4-1.5) 11/29/22 09:50 Total Hemoglobin 12.2 g/dL (14-18) L 11/29/22 09:50 O2 Delivery Device Nc 11/29/22 09:50 O2 Liters/Min 4.0 % 11/29/22 09:50 [employer] ID [email or web address] 11/29/22 09:50 Sodium 136 mmol/L (136-145) 11/30/22 03:18 Potassium 4.7 mmol/L (3.5-5.1) 11/30/22 03:18 Chloride 102 mmol/L (98-107) 11/30/22 03:18 Carbon Dioxide 23 mmol/L (22-29) 11/30/22 03:18 Anion Gap 15.7 (5-19) 11/30/22 03:18 BUN 30 mg/dL (6-20) H 11/30/22 03:18 Creatinine 3.2 mg/dL (0.7-1.2) H 11/30/22 03:18 GFR Calculation 20.3 mL/min (90-130) L 11/30/22 03:18 Glucose 135 mg/dL (65-115) H 11/30/22 03:18 POC Glucose 326 mg/dL (70-110) H 11/30/22 12:36 Estimat Average Glucose 203 11/29/22 09:28 Hemoglobin A1c 8.7 % (4.0-6.0) H 11/29/22 09:28 Calculated Osmolality 290 mOsm/kg (285-295) 11/30/22 03:18 Lactic Acid 0.8 mmol/L (0.5-2.2) 11/29/22 10:08 Calcium 7.9 mg/dL (8.5-10.5) L 11/30/22 03:18 Magnesium 1.9 mg/dL (1.7-2.3) 11/30/22 03:18 Total Bilirubin 0.4 mg/dL (0.15-1.2) 11/30/22 03:18 AST 27 U/L (0-40) 11/30/22 03:18 ALT 14 U/L (0-41) 11/30/22 03:18 Alkaline Phosphatase 202 U/L (40-130) H 11/30/22 03:18 Troponin T Baseline 442 ng/L (0-15) H* 11/29/22 10:00 Troponin T 120 Minute 415.2 ng/L (0-15) H 11/29/22 11:56 Delta Troponin T -26.8 ABS# (0-10) L 11/29/22 11:56 Troponin T Hi Sens 6Hr 421.0 ng/L (0-15) H 11/29/22 16:00 Troponin T Hi Sens 6Hr Delta -21.0 ng/L (0-12) L 11/29/22 16:00 NT-Pro-B Natriuret Pep 59306 pg/mL (0-125) H 11/29/22 10:08 Total Protein 5.8 g/dL (6.6-8.7) L D 11/30/22 03:18 Albumin 2.3 g/dL (3.5-5.2) L 11/30/22 03:18 Globulin 3.5 g/dL (1.3-4.6) 11/30/22 03:18 Triglycerides 103 mg/dL (0-150) 11/29/22 10:00 Cholesterol 142 mg/dL (0-200) 11/29/22 10:00 LDL Cholesterol, Calc 81 mg/dL (50-129) 11/29/22 10:00 HDL Cholesterol 40 mg/dL (60-100) L 11/29/22 10:00 LDL/HDL Ratio 2.03 RATIO (0.00-3.22) 11/29/22 10:00 Cholesterol/HDL Ratio 3.55 mg/dL (1.0-5.00) 11/29/22 10:00 Procalcitonin 0.13 ng/mL (0-0.5) 11/29/22 10:08 TSH 2.21 uIU/mL (0.27-4.20) 11/29/22 10:00 Coronavirus 229E (PCR) Not detected (NOT DETECT) 11/29/22 13:25 SARS-CoV-2 (PCR) Not detected (NOT DETECT) 11/29/22 13:25 Micro: Microbiology 11/29/22 10:11 Blood Culture - Preliminary Blood NEGATIVE TO DATE 11/29/22 10:08 Blood Culture - Preliminary Blood NEGATIVE TO DATE A&P Assessment and plan (1) Acute diastolic heart failure: The etiology is not clear. In view of the markedly elevated troponin T, most likely this patient had a non-ST elevation myocardial infarction last night causing the heart failure. He is stable hemodynamically. The troponin T seems to be trending down. No significant wall motion normalities by echocardiogram. The overall LV ejection fraction within normal limits. At this point, patient will be treated with IV heparin, p.o. Plavix, aspirin, beta-sharif, statin and other symptomatic measures. He requires a cardiac catheterization sometime down the line. However his creatinine is going up. Nephrology is being consulted. We may await for the nephrology input before proceeding with the cath (2) Type 2 diabetes mellitus: Aggressive management of the diabetes would be appropriate (3) 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: Patient seems to have an acute on chronic kidney disease. Nephrology is consulted. (4) Hyperkalemia: Currently normokalemic (5) Elevated troponin: Most likely this is related to a non-ST elevation myocardial infarction. Once the heart failure is properly treated and also once the kidney function is stabilized, we may consider doing a cardiac catheterization to further evaluate the coronary status and decide on further management. Plan Based on the patient's clinical progress, further recommendations will be made. Discussed the plan with Dr. Tyra Calvillo Medical Necessity Statement*: Patient requires continued hospital stay for close monitoring and further management Coding Level of Care Code 94141 Diagnoses Acute diastolic heart failure I50.31 Type 2 diabetes mellitus E11.9 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 E11.22 Hyperkalemia E87.5 Elevated troponin R77.8
[2022-11-30 16:41] LABS: Glucose Point of Care 227 mg/dL (70-110)
[2022-11-30 21:03] LABS: Glucose Point of Care 200 mg/dL (70-110)
[2022-11-30] MEDS: ciprofloxacin 500 mg Tablet PO (21:16)
[2022-11-30] MEDS: gabapentin 300 mg Capsule PO (21:16)
[2022-11-30] MEDS: atorvastatin 40 mg Tablet PO (21:16)
[2022-11-30] MEDS: insulin glargine 100 units/1 mL 40 UNIT SUBCUT (22:16)
[2022-11-30] MEDS: heparin drip 25,000 UNIT/500 ML PREMIX 36 UNIT IV (23:11)
[2022-12-01] VITALS (10 sets, daily range): BP systolic 120–133; BP diastolic 67–76; PULSE 62–73; RESP 10–22; TEMP 36.4–37.2; O2SAT 91–97
--- NOTE | 2022-12-01 05:20 | PC.NURSE ---
late entry, appx 2200 this nurse saw that heparin gtt had been ordered since 11/29 1244 with no indication in chart of why heparin not started, notified Dr Stokes and received order to start heparin gtt without bolus
[2022-12-01 05:24] LABS: Basophils # 0.1 10^3/uL (0.0-0.1); Basophils % 0.8 %; Eosinophils # 0.5 10^3/uL (0.0-0.8); Eosinophils % 4.3 %; Hematocrit 34.6 % (42.0-52.0); Lymphocytes # 1.7 10^3/uL (0.8-4.8); Lymphocytes % 15.1 %; Mean Corpuscular HGB Conc 31.8 g/dL (30.0-36.0); Mean Corpuscular Hemoglobin 27.5 pg (28.0-34.0); Mean Corpuscular Volume 86.5 fl (80-94); Mean Platelet Volume 12.4 fL (7.4-10.4); Monocytes # 1.3 10^3/uL (0.2-0.9); Monocytes % 11.8 %; Neutrophils # 7.33 10^3/uL (1.8-7.7); Neutrophils % 67.3 %; Nucleated Red Blood Cells % 0 %; Platelet Count 244 10^3/cmm (130-400); Red Cell Distribution Width 16.4 % (12.1-15.1); White Blood Count 10.9 10^3/uL (4.0-10.0)
[2022-12-01 05:41] LABS: Anion Gap 13.4 (5-19); Blood Urea Nitrogen 31 mg/dL (6-20); Calcium 8.1 mg/dL (8.5-10.5); Carbon Dioxide 25 mmol/L (22-29); Chloride 100 mmol/L (98-107); Glomerular Filtration Rate 18.9 mL/min (90-130); Glucose 124 mg/dL (65-115); Magnesium 1.8 mg/dL (1.7-2.3); Osmolality Calculated 286 mOsm/kg (285-295); Phosphorus 3.7 mg/dL (2.5-4.5); Potassium 4.4 mmol/L (3.5-5.1); Sodium 134 mmol/L (136-145)
[2022-12-01 05:46] LABS: Creatinine Clr Calc Pharmacy 32.6146
[2022-12-01 05:47] LABS: Partial Thromboplastin Time 138.1 SECONDS (23.9-36.7)
[2022-12-01] MEDS: aspirin 81 mg Chew Tablet PO (05:53)
[2022-12-01] MEDS: amlodipine 10 mg Tablet PO (05:53)
[2022-12-01 06:21] LABS: Glucose Point of Care 122 mg/dL (70-110)
--- NOTE | 2022-12-01 07:19 | P.PN_ITS ---
Subjective Subjective: Patient is feeling better. Renal function is worsening. Vitals/I&O/Wt Last Vital Signs Temp 97.6 F 12/01/22 04:00 Pulse 66 12/01/22 04:00 Resp 18 12/01/22 04:00 BP 129/76 12/01/22 04:00 Pulse Ox 96 12/01/22 04:00 O2 Del Method 12/01/22 00:00 O2 Flow Rate 4 11/30/22 20:00 11/30/22 12/01/22 12/01/22 22:59 06:59 14:59 Intake Total 900 / 1780 941.8 / 2721.8 Output Total 0 / 1000 1100 / 2100 Balance 900 / 780 -158.2 / 621.8 Weight last 48 hrs Weight 283 lb 14.4 oz Weight 290 lb 11.2 oz Weight 286 lb 8 oz Weight 280 lb Physical Exam Narrative: GENERAL: Patient is alert, awake and oriented x3. [] NECK: No jugular vein distension. [] HEENT: No cyanosis. No icterus. No pallor. [] HEART: Regular S1 and S2. No murmur, rub or gallop. [] LUNGS: Clear to auscultate bilaterally. [] CENTRAL NERVOUS SYSTEM: Grossly nonfocal. [] EXTREMITIES: Lower extremities with 2+ edema bilaterally. Urinary Catheter Management: Reyes: Cath Placed During This Visit: yes Reason for Continuing Indwelling Catheter: Accurate Measurement of Urinary Output in Critically Ill Patients Urinary Catheter Date of Insertion: 11/29/22 Urinary Catheter Time of Insertion: 13:30 Data 12/01/22 05:14 12/01/22 05:14 Micro: Microbiology 11/29/22 10:11 Blood Culture - Preliminary Blood NEGATIVE TO DATE 11/29/22 10:08 Blood Culture - Preliminary Blood NEGATIVE TO DATE A&P Assessment and plan (1) Acute diastolic heart failure: Continue NSTEMI treatment. Renal function is worsening. At this point, patient will be treated with IV heparin, p.o. Plavix, aspirin, beta-sharif, statin and other symptomatic measures. Lasix downtitrated. Monitor renal function (2) Type 2 diabetes mellitus: Aggressive management of the diabetes would be appropriate (3) 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: Patient seems to have an acute on chronic kidney disease. Nephrology is consulted. (4) Hyperkalemia: Currently normokalemic (5) Elevated troponin: Possibly NSTEMI. Cardiac cathterization once renal function is stable. Plan Awaiting renal function improvement before coronary angiogram Attestations Medical Necessity Statement*: Care expected to cross 2 midnights. Coding Level of Care Code Acute Code for [facility] Fwd Diagnoses Acute diastolic heart failure I50.31 Type 2 diabetes mellitus E11.9 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 E11.22 Hyperkalemia E87.5 Elevated troponin R77.8
--- NOTE | 2022-12-01 08:17 | P.CONIM_ITS ---
Providers/Reason For Consult Consulting Physician/Specialty*: [facility]/Nephrology Reason for Consult*: ARJUN , Attending Physician: Tsering Mary MD Primary Care Provider: SERAFIN Reza History of Present Illness History of Present Illness Tim Robison is a 57 year old male with past medical history of diabetes, chronic kidney disease dyslipidemia, history of osteomyelitis presented with complaint of shortness of breath. Chest x-ray showed pulmonary vascular congestion and elevated BNP and troponin. 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 On review of prior labs patient's baseline is in the 2 range. Echo showed ejection f raction of 65%. Nephrology consultation is requested for further evaluation. Medications/Allergies Home Medications Medication Instructions Recorded Confirmed Last Taken Type amlodipine 10 mg tablet 10 mg PO QAM 10/11/20 11/29/22 11/28/22 History gabapentin 300 mg capsule 300 mg PO BEDTIME 10/11/20 11/29/22 11/28/22 History aspirin 81 mg chewable tablet 81 mg PO QAM 10/30/21 11/29/22 11/28/22 History cyanocobalamin (vitamin B-12) 1,000 mcg IM Q30D 10/30/21 11/29/22 Unknown History 1,000 mcg/mL injection solution fluticasone 100 mcg-salmeterol 50 1 inh inhalation BID #60 ea 11/02/21 11/29/22 Unknown Rx mcg/dose blistr powdr for inhalation (Advair Diskus) insulin lispro 100 unit/mL See Rx Instructions .Route 11/02/21 11/29/22 Unknown Rx subcutaneous pen (Humalog KwikPen .COMPLEX #0 mL (U-100) Insulin) insulin detemir U-100 100 unit/mL 52 unit SUBCUT BID 04/16/22 11/29/22 04/16/22 History (3 mL) subcutaneous pen (Levemir FlexTouch U-100 Insulin) omeprazole 40 mg capsule,delayed 40 mg PO DAILY 04/16/22 11/29/22 04/16/22 History release blood-glucose meter,continuous #1 ea 04/23/22 11/29/22 Unknown Rx (Dexcom G6 Rotary Cutter Operator) blood-glucose sensor (Dexcom G6 #9 ea 04/23/22 11/29/22 Unknown Rx Sensor device) blood-glucose transmitter (Dexcom #3 ea 04/23/22 11/29/22 Unknown Rx G6 Transmitter device) ciprofloxacin HCl 500 mg tablet 500 mg PO BID #42 tabs 11/12/22 11/29/22 11/28/22 Rx albuterol sulfate 90 mcg/actuation 1 puff inhalation Q6H PRN 11/29/22 11/29/22 Unknown History aerosol inhaler shortness of breath or wheezing atorvastatin 40 mg tablet 40 mg PO BEDTIME 11/29/22 11/29/22 11/28/22 History famotidine 20 mg tablet 20 mg PO BID 11/29/22 11/29/22 11/28/22 History metoprolol tartrate 100 mg tablet 100 mg PO BID 11/29/22 11/29/22 11/28/22 History pregabalin 200 mg capsule (Lyrica) 200 mg PO TID 11/29/22 11/29/22 11/28/22 History Allergies Allergy/AdvReac Type Severity Reaction Status Date / Time No Known Allergies Allergy Verified 11/29/22 11:09 Current Medications Generic Name Dose Route Start Last Admin Trade Name Freq PRN Reason Stop Dose Admin Amlodipine Besylate 10 mg 11/30/22 06:00 12/01/22 05:53 Amlodipine 10 Mg Tablet PO 10 mg QAM [facility] Administration Aspirin 81 mg 11/30/22 06:00 12/01/22 05:53 Aspirin 81 Mg Chew Tablet PO 81 mg QAM [facility] Administration Atorvastatin Calcium 40 mg 11/29/22 21:00 11/30/22 21:16 Atorvastatin 40 Mg Tablet PO 40 mg BEDTIME [facility] Administration Ciprofloxacin HCl 500 mg 11/30/22 21:00 11/30/22 21:16 Ciprofloxacin 500 Mg Tablet PO 500 mg BID@0900,2100 [facility] Administration Protocol Clopidogrel Bisulfate 75 mg 11/30/22 09:00 11/30/22 08:39 Clopidogrel 75 Mg Tablet PO 75 mg DAILY [facility] Administration Gabapentin 300 mg 11/29/22 21:00 11/30/22 21:16 Gabapentin 300 Mg Capsule PO 300 mg BEDTIME [facility] Administration Heparin Sodium/Sodium Chloride 25,000 unit in 500 mls @ 0 mls/hr 11/29/22 12:45 12/01/22 05:54 Heparin Drip IV 11.02 unit/kg/hr .Q0M [facility] 28 mls/hr Titration Protocol Per Protocol Insulin Glargine 40 unit 11/29/22 21:00 11/30/22 22:16 Insulin Glargine 100 Units/1 Ml SUBCUT 40 unit BEDTIME [facility] Administration Insulin Human Lispro 0 unit 11/29/22 18:00 12/01/22 07:54 Insulin Lispro 100 Unit/1 Ml SUBCUT Not Given WM&BEDTIME [facility] Protocol Metoprolol Tartrate 100 mg 11/29/22 18:00 11/30/22 17:16 Metoprolol Tartrate 50 Mg Tablet PO 100 mg BID [facility] Administration Pantoprazole Sodium 40 mg 11/29/22 12:45 11/30/22 12:42 Pantoprazole 40 Mg Sdv IVP 40 mg Q24H [facility] Administration PFSH Acute PFSH: Medical History Acute kidney injury superimposed on CKD 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 Chronic osteomyelitis Diabetes Hyperlipidemia Neuropathy Onychomycosis of nail of digit of hand Uncontrolled type 2 diabetes with neuropathy Surgical History H/O circumcision H/O colonoscopy 7 yrs ago Status post debridement of ulcer of heel Family History Brother Cancer Sister Lung disease Mother Heart failure Father Chronic kidney failure Denies family history of Anesthesia complication Bleeding disorder Social History Smoking and tobacco status: former smoker Second hand smoke exposure: No Alcohol intake: never Adopted: No Lives independently: Yes Marital status: Single Current occupational status: disabled Vitals/I&O/Wt Last Vital Signs Temp 97.6 F 12/01/22 04:00 Pulse 71 12/01/22 07:46 Resp 17 12/01/22 07:46 BP 129/76 12/01/22 04:00 Pulse Ox 95 12/01/22 07:46 O2 Del Method 12/01/22 07:46 O2 Flow Rate 2 12/01/22 07:46 11/30/22 12/01/22 12/01/22 22:59 06:59 14:59 Intake Total 900 / 1780 941.8 / 2721.8 Output Total 0 / 1000 1100 / 2100 Balance 900 / 780 -158.2 / 621.8 Weight last 48 hrs Weight 128.775 kg Weight 131.859 kg Weight 129.954 kg Weight 127.006 kg Physical Exam Narrative: Patient is awake alert, no acute distress Neck supple S1-S2 regular rate and rhythm per report Clear to auscultation per report No pedal edema. Urinary Catheter Management: Reyes: Cath Placed During This Visit: yes Reason for Continuing Indwelling Catheter: Accurate Measurement of Urinary Output in Critically Ill Patients Urinary Catheter Date of Insertion: 11/29/22 Urinary Catheter Time of Insertion: 13:30 Data 12/01/22 05:14 12/01/22 05:14 Micro: Microbiology 11/29/22 10:11 Blood Culture - Preliminary Blood NEGATIVE TO DATE 11/29/22 10:08 Blood Culture - Preliminary Blood NEGATIVE TO DATE A&P Assessment and plan (1) 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: Plan 1. Acute on chronic kidney disease stage III: Patient's baseline creatinine is in the 2 range, presented with a 3.1 and worsened to 3.4 currently on IV diuresis. -We will decrease Lasix to 40 mg IV daily, and will add IV albumin -Has 3+ urine protein, possible that patient has nephrotic syndrome that could be contributing to volume overload. -We will check urine protein to creatinine ratio -Place on 2 g sodium restriction and 1500 mL fluid restriction 2. Hyponatremia: Mild, sodium 134 today, continue to monitor on IV Lasix 3. New onset CHF: Question NSTEMI, cardiology following 4. Diabetes type 2: Med management per primary team Patient evaluated using audiovisual cart. Time spent 45 minutes Consult Attestations Medical Necessity Statement: Patient requires continued hospital stay for close monitoring and further management Coding Level of Care Code Acute Code for [facility] Fwd Diagnoses 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 E11.22
[2022-12-01] MEDS: albumin 25 G/100 ML BAG 60 G IV ×3 (08:30→22:49)
[2022-12-01] MEDS: FUROsemide 10 mg/mL SDV 4mL 40 MG IVP (08:51)
[2022-12-01] MEDS: clopidogrel 75 mg Tablet PO (08:51)
[2022-12-01] MEDS: metoprolol tartrate 50 mg Tablet 100 MG PO ×2 (08:51→17:11)
[2022-12-01] MEDS: ciprofloxacin 500 mg Tablet PO ×2 (08:52→20:22)
[2022-12-01 11:01] LABS: Glucose Point of Care 254 mg/dL (70-110)
[2022-12-01] MEDS: pantoprazole 40 mg SDV IVP (11:57)
[2022-12-01] MEDS: insulin lispro 100 unit/1 mL SUBCUT ×3 (11:57→21:58)
--- NOTE | 2022-12-01 12:37 | P.PN_ITS ---
Subjective Subjective: seen this am feeling better clinically on heparin drip seen by nephro cr worsening at this time Vitals/I&O/Wt Last Vital Signs Temp 98.2 F 12/01/22 12:07 Pulse 72 12/01/22 12:07 Resp 22 H 12/01/22 12:07 BP 125/67 12/01/22 12:07 Pulse Ox 91 12/01/22 12:07 O2 Del Method 12/01/22 07:46 O2 Flow Rate 2 12/01/22 07:46 11/30/22 12/01/22 12/01/22 22:59 06:59 14:59 Intake Total 900 / 1780 941.8 / 2721.8 460 / 460 Output Total 0 / 1000 1100 / 2100 500 / 500 Balance 900 / 780 -158.2 / 621.8 -40 / -40 Weight last 48 hrs Weight 128.775 kg Weight 131.859 kg Weight 129.954 kg Physical Exam Narrative: General: Alert oriented x3, patient seen sitting up in bed on 2 L nasal cannula. HEENT: Normocephalic, atraumatic, EOMI, Cardio: Regular rate rhythm, normal S1-S2 Respiratory: Clear to auscultation b/l, no apparent crackles GI: Abdomen soft, nontender, nondistended, bowel sounds + Behavior: Appropriate and cooperative Extremities: No apparent edema noted. Both legs wrapped with bandage by wound care clinic. Urinary Catheter Management: Reyes: Cath Placed During This Visit: yes Reason for Continuing Indwelling Catheter: Accurate Measurement of Urinary Output in Critically Ill Patients Urinary Catheter Date of Insertion: 11/29/22 Urinary Catheter Time of Insertion: 13:30 Data 12/01/22 05:14 12/01/22 05:14 Micro: Microbiology 11/29/22 10:11 Blood Culture - Preliminary Blood NEGATIVE TO DATE 11/29/22 10:08 Blood Culture - Preliminary Blood NEGATIVE TO DATE A&P Assessment and plan (1) Congestive heart failure: (2) Hyperkalemia: (3) Hypoxia: (4) Chronic kidney disease: (5) Type 2 diabetes mellitus: (6) 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: (7) Diabetic ulcer of foot associated with diabetes mellitus due to underlying c ondition, with fat layer exposed: (8) Hyperkalemia: Plan #Acute diastolic congestive heart failure #Diabetes mellitus type 2 #ARJUN on CKD, possible nephrotic syndrome #Acute hypoxia requiring supplemental oxygen with nasal cannula #Chronic diabetic foot wounds #Hyperkalemia #NSTEMI, possibly type II however troponin series are not resulted yet. ? Troponin delta negative however intial was 400 range. - Echo done last year shows EF 65-70% with diastolic failure ? Echocardiogram complete this admission: poor study, poor ultrasonic windows. EF 65%, mild LV hypertrophy. ? Transition to lasix 40 IV daily and add albumin as per nephro ? Avoid nephrotoxic's ? Continue to wean off oxygen as able ? Continue oxygen as needed ? Continue on lantus 40 units daily. Home dose is 52 units twice daily. Will order lower dose due to kidney dysfunction. ? Check blood sugars ACHS. Placed on sliding scale insulin moderate intensity ? Continue aspirin, atorvastatin, amlodipine, omeprazole, Lopressor ? Continue heparin drip to cover for NSTEMI for 48 hours. ? We will consult cardiology after echocardiogram has resulted. Patient may require an angiogram prior to discharge ? Continue wound care for foot wounds. - Continue ciprofloxacin for leg wounds being managed as outpatient. Pt is not septic. He was to have an MRI done to r/o osteomyelitis of right foot as outpatient. Consult podiatry. - Check MRI foot to r/o osteomyelitis - Cardiology consulted. Plan for angiogram as ARJUN improves. - Pt may have component of pulmonary htn due to TAMIA. He will need sleep study as outpatient. Wound care instructions: DM ulcer: elevate legs to the level of the heart or above for 30 min daily and/or when sitting, avoid standing for long periods of time, wear own compression stockings every day, put compression stockings on every morning and remove every night, clean site with dakins 0.125% and 4x4 gauze, apply drawtex and hydralock. Apply juzo wraps daily, SN to apply 2 times a week. patient to apply when nurse not in home Full code DVT prophylaxis: Heparin drip Attestations Medical Necessity Statement*: continue mgmt in hospital Diagnoses Congestive heart failure I50.9 Hyperkalemia E87.5 Hypoxia R09.02 Chronic kidney disease N18.9 Type 2 diabetes mellitus E11.9 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 E11.22 Diabetic ulcer of foot associated with diabetes mellitus due to underlying condition, with fat layer exposed E08.621; L97.502 Hyperkalemia E87.5
[2022-12-01 13:01] LABS: Partial Thromboplastin Time 115.4 SECONDS (23.9-36.7)
[2022-12-01] MEDS: heparin drip 25,000 UNIT/500 ML PREMIX 20 UNIT IV (14:40)
[2022-12-01 16:34] LABS: Glucose Point of Care 267 mg/dL (70-110)
[2022-12-01 18:55] LABS: Partial Thromboplastin Time 71.9 SECONDS (23.9-36.7)
[2022-12-01] MEDS: atorvastatin 40 mg Tablet PO (20:22)
[2022-12-01] MEDS: gabapentin 300 mg Capsule PO (20:22)
[2022-12-01 21:01] LABS: Glucose Point of Care 246 mg/dL (70-110)
[2022-12-01] MEDS: insulin glargine 100 units/1 mL 40 UNIT SUBCUT (21:59)
[2022-12-02] VITALS (12 sets, daily range): BP systolic 125–149; BP diastolic 67–79; PULSE 68–86; RESP 16–26; TEMP 36.7–36.9; O2SAT 85–95
[2022-12-02 01:40] LABS: Basophils # 0.1 10^3/uL (0.0-0.1); Basophils % 0.8 %; Eosinophils # 0.4 10^3/uL (0.0-0.8); Eosinophils % 4.4 %; Hematocrit 30.6 % (42.0-52.0); Hemoglobin 9.5 g/dL (11.7-16.6); Lymphocytes # 1.6 10^3/uL (0.8-4.8); Lymphocytes % 16.6 %; Mean Corpuscular Hemoglobin 27.1 pg (28.0-34.0); Mean Corpuscular Volume 87.2 fl (80-94); Mean Platelet Volume 12.7 fL (7.4-10.4); Monocytes # 1.1 10^3/uL (0.2-0.9); Monocytes % 10.9 %; Neutrophils # 6.42 10^3/uL (1.8-7.7); Neutrophils % 66.9 %; Nucleated Red Blood Cells % 0 %; Platelet Count 210 10^3/cmm (130-400); Red Blood Count 3.51 10^6/uL (4.1-5.3); Red Cell Distribution Width 16.5 % (12.1-15.1); White Blood Count 9.6 10^3/uL (4.0-10.0)
[2022-12-02 01:49] LABS: Anion Gap 15.4 (5-19); Blood Urea Nitrogen 39 mg/dL (6-20); Calcium 8.2 mg/dL (8.5-10.5); Carbon Dioxide 25 mmol/L (22-29); Chloride 101 mmol/L (98-107); Glomerular Filtration Rate 22.7 mL/min (90-130); Glucose 156 mg/dL (65-115); Magnesium 1.7 mg/dL (1.7-2.3); Osmolality Calculated 297 mOsm/kg (285-295); Potassium 4.4 mmol/L (3.5-5.1); Sodium 137 mmol/L (136-145)
[2022-12-02 04:22] LABS: Partial Thromboplastin Time 64.3 SECONDS (23.9-36.7)
[2022-12-02] MEDS: aspirin 81 mg Chew Tablet PO (06:05)
[2022-12-02] MEDS: amlodipine 10 mg Tablet PO (06:05)
--- NOTE | 2022-12-02 06:34 | PM.PN ---
Subjective Subjective: feeling better No SOB Medications: Reviewed: Yes Vitals/I&O/Wt Last Vital Signs Temp 98.0 F 12/02/22 04:00 Pulse 72 12/02/22 04:00 Resp 22 H 12/02/22 04:00 BP 132/70 12/02/22 04:00 Pulse Ox 94 12/02/22 04:00 O2 Del Method 12/01/22 20:00 O2 Flow Rate 2 12/01/22 20:00 12/01/22 12/01/22 12/02/22 14:59 22:59 06:59 Intake Total 929.067 / 929.067 336 / 1265.067 400 / 1665.067 Output Total 1500 / 1500 650 / 2150 420 / 2570 Balance -570.933 / -570.933 -314 / -884.933 -20 / -904.933 Weight last 48 hrs Weight 129.591 kg Weight 128.775 kg Physical Exam Narrative: Patient is awake alert, no acute distress Neck supple S1-S2 regular rate and rhythm per report Clear to auscultation per report No pedal edema. Urinary Catheter Management: Reyes: Cath Placed During This Visit: yes Reason for Continuing Indwelling Catheter: Accurate Measurement of Urinary Output in Critically Ill Patients Urinary Catheter Date of Insertion: 11/29/22 Urinary Catheter Time of Insertion: 13:30 Data 12/02/22 00:35 12/02/22 00:35 A&P Assessment and plan (1) 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: Plan 1. Acute on chronic kidney disease stage III: Patient's baseline creatinine is in the 2 range, presented with a 3.1 and worsened to 3.4 , now improved to 2.9 , -continue IV albumin, change lasix to 40 mg po BID -Has 3+ urine protein, possible that patient has nephrotic syndrome that could be contributing to volume overload. -We will check urine protein to creatinine ratio -Place on 2 g sodium restriction and 1500 mL fluid restriction 2. Hyponatremia: Mild, improved , 3. New onset CHF: Question NSTEMI, cardiology following 4. Diabetes type 2: Med management per primary team Patient evaluated using audiovisual cart. Time spent 45 minutes Attestations Medical Necessity Statement*: can DC if stable otherwise Coding Level of Care Code Acute Code for Chg Fwd Diagnoses 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 E11.22
[2022-12-02 06:45] LABS: Glucose Point of Care 133 mg/dL (70-110)
--- NOTE | 2022-12-02 07:15 | PM.CONSULT ---
Providers/Reason For Consult Consulting Physician/Specialty*: Neymar Allen D.P.M. Reason for Consult*: Diabetic foot ulcer left and right foot. Attending Physician: Tsering Mary MD Primary Care Provider: SERAFIN Reza History of Present Illness History of Present Illness Tim Robison is a 57 year old male Admitted to the hospital service for acute diastolic heart failure. Labs showed elevated troponins, EKG demonstrated non-ST elevation DE. Looks like he is a candidate for catheterization at some point down the road will require collaboration with nephrology. I was consulted for evaluation of bilateral diabetic foot wounds. Patient reports a long history of a wound to the left heel has been present for years. He states that healed 1 time and then quickly rhe ulcerated. He noticed increased drainage about a month ago from the left heel. Is taking ciprofloxacin and denies any redness or purulent drainage. He also has a wound at the right foot. He ambulates with removable cast boot left and right. He typically wears lymphedema wraps during the day. The frequency of dressing changes has been challenging. Given the increased drainage he would benefit from twice daily dressing changes however home health is only set up to come 3X weekly and friend/family have had difficulty providing twice daily dressing changes. Patient is established at the wound care clinic and is actively being treated for both wounds prior to this hospitalization. Patient denies any subjective nausea, vomiting, fever, chills, shortness of breath or chest pain. Review of Systems General: Reports: 10 or more systems reviewed and unremarkable except in HPI and below Const: Denies: fever(s) or chills Eyes: Denies: change in vision Card: Denies: chest pain or palpitations Resp: Denies: dyspnea or productive cough GI: Denies: abdominal pain, nausea or vomiting : Denies: flank pain Musc: Reports: extremity swelling, joint stiffness and deformity Skin/Breast: Reports: erythema, sores, changes in skin color, dry skin, nail changes and change in hair Neuro: Reports: numbness in extremities, sensory changes and difficulty walking Psych: Denies: suicidal ideation Endo: Denies: change in body appearance Jarrod/Lymph: Denies: tender lymph nodes Medications/Allergies Home Medications Medication Instructions Recorded Confirmed Last Taken Type amlodipine 10 mg tablet 10 mg PO QAM 10/11/20 11/29/22 11/28/22 History gabapentin 300 mg capsule 300 mg PO BEDTIME 10/11/20 11/29/22 11/28/22 History aspirin 81 mg chewable tablet 81 mg PO QAM 10/30/21 11/29/22 11/28/22 History cyanocobalamin (vitamin B-12) 1,000 mcg IM Q30D 10/30/21 11/29/22 Unknown History 1,000 mcg/mL injection solution fluticasone 100 mcg-salmeterol 50 1 inh inhalation BID #60 ea 11/02/21 11/29/22 Unknown Rx mcg/dose blistr powdr for inhalation (Advair Diskus) insulin lispro 100 unit/mL See Rx Instructions .Route 11/02/21 11/29/22 Unknown Rx subcutaneous pen (Humalog KwikPen .COMPLEX #0 mL (U-100) Insulin) insulin detemir U-100 100 unit/mL 52 unit SUBCUT BID 04/16/22 11/29/22 04/16/22 History (3 mL) subcutaneous pen (Levemir FlexTouch U-100 Insulin) omeprazole 40 mg capsule,delayed 40 mg PO DAILY 04/16/22 11/29/22 04/16/22 History release blood-glucose meter,continuous #1 ea 04/23/22 11/29/22 Unknown Rx (Dexcom G6 Grass Cutter) blood-glucose sensor (Dexcom G6 #9 ea 04/23/22 11/29/22 Unknown Rx Sensor device) blood-glucose transmitter (Dexcom #3 ea 04/23/22 11/29/22 Unknown Rx G6 Transmitter device) ciprofloxacin HCl 500 mg tablet 500 mg PO BID #42 tabs 11/12/22 11/29/22 11/28/22 Rx albuterol sulfate 90 mcg/actuation 1 puff inhalation Q6H PRN 11/29/22 11/29/22 Unknown History aerosol inhaler shortness of breath or wheezing atorvastatin 40 mg tablet 40 mg PO BEDTIME 11/29/22 11/29/22 11/28/22 History famotidine 20 mg tablet 20 mg PO BID 11/29/22 11/29/22 11/28/22 History metoprolol tartrate 100 mg tablet 100 mg PO BID 11/29/22 11/29/22 11/28/22 History pregabalin 200 mg capsule (Lyrica) 200 mg PO TID 11/29/22 11/29/22 11/28/22 History Allergies Allergy/AdvReac Type Severity Reaction Status Date / Time No Known Allergies Allergy Verified 11/29/22 11:09 Current Medications Generic Name Dose Route Start Last Admin Trade Name Stacie PRN Reason Stop Dose Admin Amlodipine Besylate 10 mg 11/30/22 06:00 12/02/22 06:05 Amlodipine 10 Mg Tablet PO 10 mg QAM KELSEY Administration Aspirin 81 mg 11/30/22 06:00 12/02/22 06:05 Aspirin 81 Mg Chew Tablet PO 81 mg QAM KELSEY Administration Atorvastatin Calcium 40 mg 11/29/22 21:00 12/01/22 20:22 Atorvastatin 40 Mg Tablet PO 40 mg BEDTIME KELSEY Administration Ciprofloxacin HCl 500 mg 11/30/22 21:00 12/01/22 20:22 Ciprofloxacin 500 Mg Tablet PO 500 mg BID@0900,2100 KELSEY Administration Protocol Clopidogrel Bisulfate 75 mg 11/30/22 09:00 12/01/22 08:51 Clopidogrel 75 Mg Tablet PO 75 mg DAILY KELSEY Administration Gabapentin 300 mg 11/29/22 21:00 12/01/22 20:22 Gabapentin 300 Mg Capsule PO 300 mg BEDTIME KELSEY Administration Heparin Sodium/Sodium Chloride 25,000 unit in 500 mls @ 0 mls/hr 11/29/22 12:45 12/01/22 14:40 Heparin Drip IV 7.87 unit/kg/hr .Q0M KELSEY 20 mls/hr Administration Protocol Per Protocol Albumin Human 25 g in 100 mls @ 60 mls/hr 12/01/22 07:30 12/02/22 00:32 Albumin IV Infused Q8H KELSEY Infusion Insulin Glargine 40 unit 11/29/22 21:00 12/01/22 21:59 Insulin Glargine 100 Units/1 Ml SUBCUT 40 unit BEDTIME KELSEY Administration Insulin Human Lispro 0 unit 11/29/22 18:00 12/01/22 21:58 Insulin Lispro 100 Unit/1 Ml SUBCUT 8 unit WM&BEDTIME KELSEY Administration Protocol Metoprolol Tartrate 100 mg 11/29/22 18:00 12/01/22 17:11 Metoprolol Tartrate 50 Mg Tablet PO 100 mg BID KELSEY Administration Pantoprazole Sodium 40 mg 11/29/22 12:45 12/01/22 11:57 Pantoprazole 40 Mg Sdv IVP 40 mg Q24H KELSEY Administration PFSH Acute PFSH: Medical History Acute kidney injury superimposed on CKD 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 Chronic osteomyelitis Diabetes Hyperlipidemia Neuropathy Onychomycosis of nail of digit of hand Uncontrolled type 2 diabetes with neuropathy Surgical History H/O circumcision H/O colonoscopy 7 yrs ago Status post debridement of ulcer of heel Family History Brother Cancer Sister Lung disease Mother Heart failure Father Chronic kidney failure Denies family history of Anesthesia complication Bleeding disorder Social History Smoking and tobacco status: former smoker Second hand smoke exposure: No Alcohol intake: never Adopted: No Lives independently: Yes Marital status: Single Current occupational status: disabled Vitals/I&O/Wt Last Vital Signs Temp 98.0 F 12/02/22 04:00 Pulse 72 12/02/22 04:00 Resp 22 H 12/02/22 04:00 BP 132/70 12/02/22 04:00 Pulse Ox 94 12/02/22 04:00 O2 Del Method 12/01/22 20:00 O2 Flow Rate 2 12/01/22 20:00 12/01/22 12/02/22 12/02/22 22:59 06:59 14:59 Intake Total 336 / 1265.067 400 / 1665.067 Output Total 650 / 2150 420 / 2570 Balance -314 / -884.933 -20 / -904.933 Weight last 48 hrs Weight 285 lb 11.2 oz Weight 283 lb 14.4 oz Physical Exam Narrative: GENERAL: Patient is alert and oriented ?3 and in no acute distress. The following is a focused bilateral lower extremity exam. VASCULAR: Dorsalis pedis palpable +2 left and right foot. Posterior tibial arteries +2. Capillary refill time less than 3 seconds to the distal hallux bilaterally. Calf is supple and nontender proximally and distally. Decreased pedal hair growth bilaterally. Pitting edema to the bilateral lower extremity. NEUROLOGICAL: Protective sensation intact 0/10 sites, tested with [place] Es[place]as monofilament to bilateral feet. DERMATOLOGICAL: Lower extremity integument is thin and atrophic has decreased texture, has atrophic shiny appearance. He has a wound to the left heel that measures 6.2 cm x 4.4 cm x 0.4 cm with serous drainage, there is no purulence and there is no periwound erythema, wound is exposed to myofascial layer, does not probe to bone. Wound Sub fifth metatarsal head to the right foot measures 0.8 cm x 0.7 cm x 0.3 cm with a largely granular base and epithelialized margin has no purulent drainage and no periwound erythema, does not track, tunnel or undermine. Hyperkeratosis subfourth metatarsal head of the left foot without hemorrhaging or underlying wound. Dystrophic toenails 1, 2, 3, 4, 5 left and right foot. MUSCULOSKELETAL: Increased dorsiflexion and hypermobility at the left ankle joint in the sagittal plane. Able to obtain 15 degrees of dorsiflexion. Digital deformities of digits 1, 2, 3, 4, 5 left and right foot that are reducible. Pes planus foot type bilaterally. No crepitus with palpation of soft tissue adjacent to bilateral foot wound noted above. Urinary Catheter Management: Reyes: Cath Placed During This Visit: yes Reason for Continuing Indwelling Catheter: Accurate Measurement of Urinary Output in Critically Ill Patients Urinary Catheter Date of Insertion: 11/29/22 Urinary Catheter Time of Insertion: 13:30 Data 12/02/22 00:35 12/02/22 00:35 A&P Assessment and plan (1) Diabetic peripheral neuropathy associated with type 2 diabetes mellitus: (2) 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: (3) Chronic ulcer of right foot with fat layer exposed: (4) PVD (peripheral vascular disease): (5) CKD (chronic kidney disease): Plan Tim Robison is a 57 year old male Admitted to the hospital service for acute diastolic heart failure. Labs showed elevated troponins, EKG demonstrated non-ST elevation DE. Looks like he is a candidate for catheterization at some point down the road will require collaboration with nephrology. I was consulted for evaluation of bilateral diabetic foot wounds. Patient reports a long history of a wound to the left heel has been present for years. He states that healed 1 time and then quickly rhe ulcerated. He noticed increased drainage about a month ago from the left heel. Is taking ciprofloxacin and denies any redness or purulent drainage. He also has a wound at the right foot. He ambulates with removable cast boot left and right. He typically wears lymphedema wraps during the day. The frequency of dressing changes has been challenging. Given the increased drainage he would benefit from twice daily dressing changes however home health is only set up to come 3X weekly and friend/family have had difficulty providing twice daily dressing changes. Patient is established at the wound care clinic and is actively being treated for both wounds prior to this hospitalization. Clinical and laboratory findings -No leukocytosis, patient is afebrile, no constitutional symptoms of sepsis -Hemoglobin A1c 8.7% -Erosive changes at right metatarsal phalangeal joint seen on x-ray are consistent with psoriatic arthritis, MRI pending. Low suspicion for osteomyelitis. No plans for surgical intervention during this hospitalization -Left foot x-ray shows chronic osteomyelitis of the left calcaneus. Wound is stable without acute signs of infection. No plans for surgical intervention during this hospitalization. Could form an outpatient plan with collaborative multidisciplinary approach to address chronic osteomyelitis of the left calcaneus would require infectious disease recommendations, partial calcanectomy and potential musculocutaneous flap would need to weigh out risks versus benefits of this type of procedure and can be managed outpatient. Recommendations: Continue antibiotics as prescribed, no acute signs of infection. PODUS boot to be dispensed by [facility] tomorrow for offloading of the left heel wound while in bed. Twice daily dressing change Hydrofera Blue primary dressing followed by ABD pad, Kerlix and Lobo wrap to the left heel wound. Twice daily dressing change of Hydrofera Blue followed by island dressing to the right plantar forefoot wound. Juzo lymphedema wraps bilateral lower extremity to be used at this time, to be taken down for twice daily dressing changes and skin inspection. Otherwise to be worn at all times during this hospitalization. There are no leg wounds at this time. Podiatry will follow during this hospitalization, recommend continued wound care clinic which he is already established with for outpatient follow-up once discharged. Coding Level of Care Code Acute Code for Chg Fwd Diagnoses Diabetic peripheral neuropathy associated with type 2 diabetes mellitus E11.42 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 L97.423 Chronic ulcer of right foot with fat layer exposed L97.512 PVD (peripheral vascular disease) I73.9 CKD (chronic kidney disease) N18.9
[2022-12-02 07:30] LABS: Partial Thromboplastin Time 63.7 SECONDS (23.9-36.7)
--- NOTE | 2022-12-02 07:33 | PC.NURSE ---
Heparin gtt: PTT 63.7, no change to infusion rate or bolus indicated at this time
--- NOTE | 2022-12-02 08:42 | XRR_ITS ---
PROCEDURE INFORMATION: Exam: XR Left Foot Exam date and time: 12/02/2022 9:00 AM Age: 57 years old Clinical indication: Other: Sore on heel; Additional info: Wound left heel TECHNIQUE: Imaging protocol: Radiologic exam of the left foot. Views: 3 or more views. COMPARISON: No relevant prior studies available. FINDINGS: Bones/joints: Osteopenia. No fracture identified. Degenerative changes in the midfoot. Sclerosis in the calcaneus along the posterior margin. Calcaneal plantar and Achilles enthesophytes. Soft tissues: Calcifications along the Achilles tendon. XR/XR foot LT min 3V* [id number] IMPRESSION: Sclerosis in the calcaneus along the posterior margin. If concerned for osteomyelitis recommend MRI.
[2022-12-02] MEDS: albumin 25 G/100 ML BAG 60 G IV ×3 (09:19→22:54)
[2022-12-02] MEDS: metoprolol tartrate 50 mg Tablet 100 MG PO ×2 (09:20→17:33)
[2022-12-02] MEDS: clopidogrel 75 mg Tablet PO (09:20)
[2022-12-02] MEDS: ciprofloxacin 500 mg Tablet PO ×2 (09:30→20:08)
[2022-12-02] MEDS: FUROsemide 40 mg Tablet PO ×2 (09:30→16:26)
--- NOTE | 2022-12-02 10:21 | PC.SOCIAL ---
IMM Update pg 2 of IMM updated and reviewed w/ patient. Copy provided and Copy dated, initialed and placed in chart.
[2022-12-02 12:05] LABS: Glucose Point of Care 272 mg/dL (70-110)
[2022-12-02] MEDS: insulin lispro 100 unit/1 mL SUBCUT ×3 (12:23→21:13)
[2022-12-02] MEDS: pantoprazole 40 mg SDV IVP (12:23)
--- NOTE | 2022-12-02 13:17 | PM.PN ---
Subjective Subjective: Patient is stable. Renal function is improving. Vitals/I&O/Wt Last Vital Signs Temp 98.0 F 12/02/22 04:00 Pulse 78 12/02/22 08:00 Resp 16 12/02/22 08:00 BP 132/70 12/02/22 04:00 Pulse Ox 92 12/02/22 08:00 O2 Del Method 12/02/22 08:00 O2 Flow Rate 2 12/01/22 20:00 12/01/22 12/02/22 12/02/22 22:59 06:59 14:59 Intake Total 336 / 1265.067 400 / 1665.067 100 / 100 Output Total 650 / 2150 420 / 2570 Balance -314 / -884.933 -20 / -904.933 100 / 100 Weight last 48 hrs Weight 285 lb 11.2 oz Weight 283 lb 14.4 oz Physical Exam Narrative: GENERAL: Patient is alert, awake and oriented x3. [] NECK: No jugular vein distension. [] HEENT: No cyanosis. No icterus. No pallor. [] HEART: Regular S1 and S2. No murmur, rub or gallop. [] LUNGS: Clear to auscultate bilaterally. [] CENTRAL NERVOUS SYSTEM: Grossly nonfocal. [] EXTREMITIES: Lower extremities with 1+ edema bilaterally. Urinary Catheter Management: Reyes: Cath Placed During This Visit: yes Reason for Continuing Indwelling Catheter: Accurate Measurement of Urinary Output in Critically Ill Patients Urinary Catheter Date of Insertion: 11/29/22 Urinary Catheter Time of Insertion: 13:30 Data 12/02/22 00:35 12/02/22 00:35 A&P Assessment and plan (1) Acute diastolic heart failure: Continue NSTEMI treatment. Renal function has started improving after decreasing diuretics. At this point, patient will be treated with IV heparin, p.o. Plavix, aspirin, beta-sharif, statin and other symptomatic measures. Lasix downtitrated. Monitor renal function (2) Type 2 diabetes mellitus: Aggressive management of the diabetes would be appropriate (3) 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: Patient seems to have an acute on chronic kidney disease. Nephrology is consulted. (4) Hyperkalemia: Currently normokalemic (5) Elevated troponin: Possibly NSTEMI. Cardiac cathterization once renal function is stable. Plan Renal function improving. Once back to baseline. can plan on cardiac cath in 1-2 days Attestations Medical Necessity Statement*: Care expected to cross 2 midnights. Coding Level of Care Code Acute Code for g Fwd Diagnoses Acute diastolic heart failure I50.31 Type 2 diabetes mellitus E11.9 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 E11.22 Hyperkalemia E87.5 Elevated troponin R77.8
[2022-12-02 13:24] LABS: Partial Thromboplastin Time 54.5 SECONDS (23.9-36.7)
[2022-12-02] MEDS: acetaminophen 325 mg Tablet 650 MG PO (13:44)
--- NOTE | 2022-12-02 15:00 | PC.NURSE ---
SAVANAH wraps now back from Laundry. Applied bilat.
--- NOTE | 2022-12-02 15:06 | P.PN_ITS ---
Subjective Subjective: creatinine improved to 2.9 no acute events overnight pt feels better on 2L NC Vitals/I&O/Wt Last Vital Signs Temp 98.0 F 12/02/22 04:00 Pulse 83 12/02/22 14:00 Resp 16 12/02/22 08:00 BP 132/70 12/02/22 04:00 Pulse Ox 92 12/02/22 08:00 O2 Del Method 12/02/22 08:00 O2 Flow Rate 2 12/01/22 20:00 12/02/22 12/02/22 12/02/22 06:59 14:59 22:59 Intake Total 400 / 1665.067 680 / 680 Output Total 420 / 2570 Balance -20 / -904.933 680 / 680 Weight last 48 hrs Weight 129.591 kg Weight 128.775 kg Physical Exam Narrative: General: Alert oriented x3, patient seen sitting up in bed on 2 L nasal cannula. HEENT: Normocephalic, atraumatic, EOMI, Cardio: Regular rate rhythm, normal S1-S2 Respiratory: Clear to auscultation b/l, no apparent crackles GI: Abdomen soft, nontender, nondistended, bowel sounds + Behavior: Appropriate and cooperative Extremities: No apparent edema noted. Both legs wrapped with bandage Urinary Catheter Management: Reyes: Cath Placed During This Visit: yes Reason for Continuing Indwelling Catheter: Accurate Measurement of Urinary Output in Critically Ill Patients Urinary Catheter Date of Insertion: 11/29/22 Urinary Catheter Time of Insertion: 13:30 Data 12/02/22 00:35 12/02/22 00:35 A&P Assessment and plan (1) Congestive heart failure: (2) Hyperkalemia: (3) Hypoxia: (4) Chronic kidney disease: (5) Type 2 diabetes mellitus: (6) 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: (7) Diabetic ulcer of foot associated with diabetes mellitus due to underlying condition, with fat layer exposed: (8) Hyperkalemia: Plan #Acute diastolic congestive heart failure #Diabetes mellitus type 2 #ARJUN on CKD, possible nephrotic syndrome #Acute hypoxia requiring supplemental oxygen with nasal cannula #Chronic diabetic foot wounds #Hyperkalemia #NSTEMI, possibly type II however troponin series are not resulted yet. ? Troponin delta negative however intial was 400 range. - Echo done last year shows EF 65-70% with diastolic failure ? Echocardiogram complete this admission: poor study, poor ultrasonic windows. EF 65%, mild LV hypertrophy. ? Transition to lasix 40 IV daily and add albumin as per nephro ? Avoid nephrotoxic's ? Continue to wean off oxygen as able ? Continue oxygen as needed ? Continue on lantus 40 units daily. Home dose is 52 units twice daily. Will order lower dose due to kidney dysfunction. ? Check blood sugars ACHS. Placed on sliding scale insulin moderate intensity ? Continue aspirin, atorvastatin, amlodipine, omeprazole, Lopressor ? Continue heparin drip to cover for NSTEMI for 48 hours. ? cardiology on board ? Continue wound care for foot wounds. - Continue ciprofloxacin for leg wounds being managed as outpatient. Pt is not septic. He was to have an MRI done to r/o osteomyelitis of right foot as outpatient. Consult podiatry. - Check MRI foot to r/o osteomyelitis - Cardiology consulted. Plan for angiogram as ARJUN improves. - Pt may have component of pulmonary htn due to TAMIA. He will need sleep study as outpatient. Wound care instructions: As per podiatry Full code DVT prophylaxis: Heparin drip Attestations Medical Necessity Statement*: continue mgmt in hospital Diagnoses Congestive heart failure I50.9 Hyperkalemia E87.5 Hypoxia R09.02 Chronic kidney disease N18.9 Type 2 diabetes mellitus E11.9 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 E11.22 Diabetic ulcer of foot associated with diabetes mellitus due to underlying condition, with fat layer exposed E08.621; L97.502 Hyperkalemia E87.5
[2022-12-02] MEDS: heparin 5,000 unit/mL INJ 1 mL IV (15:08)
[2022-12-02] MEDS: heparin drip 25,000 UNIT/500 ML PREMIX 23 UNIT IV (16:26)
[2022-12-02 17:12] LABS: Glucose Point of Care 284 mg/dL (70-110)
--- NOTE | 2022-12-02 18:52 | PC.NURSE ---
Pt rested in bed throughout the shift. Sinus rhythm noted on monitor. Afebrile. Pt denied pain until this afternoon. C/o of his feet hurting, acetaminphen admin, he stated it helped some. He ate most of his breakfast and lunch, he did not care for the dinner. He was compliant with the fluid restriction, he drank about half of it this shift. NO BM noted this shift. 1100ml of clear yellow urine noted in fischer . Dressing changes held off until new orders arrived, completed change at 1400. JUZU boots were still in laundry at that time. Applied them around 1500 when they arrived.
[2022-12-02 19:06] LABS: Partial Thromboplastin Time 78.6 SECONDS (23.9-36.7)
[2022-12-02] MEDS: atorvastatin 40 mg Tablet PO (20:08)
[2022-12-02] MEDS: gabapentin 300 mg Capsule PO (20:08)
[2022-12-02 21:05] LABS: Glucose Point of Care 169 mg/dL (70-110)
[2022-12-02] MEDS: insulin glargine 100 units/1 mL 40 UNIT SUBCUT (21:14)
[2022-12-03] VITALS (17 sets, daily range): BP systolic 139–149; BP diastolic 72–82; PULSE 72–82; RESP 17–30; TEMP 36.6–37.7; O2SAT 89–97
[2022-12-03] MEDS: FUROsemide 10 mg/mL SDV 4mL 40 MG IVP (00:55)
[2022-12-03 01:56] LABS: ABG PCO2 54.1 mmHg (35-45); ABG PH Result 7.31 (7.35-7.45); Arterial Blood Gas Hematocrit 33.5 % (42-52); Base Excess ABG 0.5 mmol/L (-2.0-2.0); Blood Gas Allen Test Pos; Blood Gas Sample Type Arterial; HCO3 ABG 27.5 mmol/L (22-26); PO2 ABG 67.2 mmHg (80.0-100.0)
[2022-12-03 01:57] LABS: Blood Gas Sample Site Radial, right; Oxygen Device OXY MASK
[2022-12-03 02:57] LABS: Basophils # 0.1 10^3/uL (0.0-0.1); Basophils % 0.8 %; Eosinophils # 0.3 10^3/uL (0.0-0.8); Eosinophils % 2.5 %; Hematocrit 35.9 % (42.0-52.0); Hemoglobin 10.9 g/dL (11.7-16.6); Lymphocytes # 0.8 10^3/uL (0.8-4.8); Lymphocytes % 6.2 %; Mean Corpuscular HGB Conc 30.4 g/dL (30.0-36.0); Mean Corpuscular Hemoglobin 26.8 pg (28.0-34.0); Mean Corpuscular Volume 88.2 fl (80-94); Mean Platelet Volume 12.6 fL (7.4-10.4); Monocytes # 1.1 10^3/uL (0.2-0.9); Monocytes % 8.6 %; Neutrophils # 10.52 10^3/uL (1.8-7.7); Nucleated Red Blood Cells % 0 %; Platelet Count 271 10^3/cmm (130-400); Red Blood Count 4.07 10^6/uL (4.1-5.3); Red Cell Distribution Width 16.1 % (12.1-15.1)
[2022-12-03 03:21] LABS: Anion Gap 16.7 (5-19); Blood Urea Nitrogen 41 mg/dL (6-20); Calcium 9.1 mg/dL (8.5-10.5); Carbon Dioxide 26 mmol/L (22-29); Chloride 99 mmol/L (98-107); Glomerular Filtration Rate 25.8 mL/min (90-130); Glucose 102 mg/dL (65-115); Osmolality Calculated 294 mOsm/kg (285-295); Potassium 4.7 mmol/L (3.5-5.1); Sodium 137 mmol/L (136-145)
[2022-12-03 03:55] LABS: Partial Thromboplastin Time 61.6 SECONDS (23.9-36.7)
--- NOTE | 2022-12-03 05:49 | PM.PN ---
Subjective Subjective: Doing well Medications: Reviewed: Yes Vitals/I&O/Wt Last Vital Signs Temp 99.8 F H 12/03/22 04:00 Pulse 81 12/03/22 04:43 Resp 26 H 12/03/22 04:00 BP 149/74 12/03/22 04:00 Pulse Ox 94 12/03/22 04:00 O2 Del Method 12/03/22 04:00 O2 Flow Rate 9 12/03/22 02:44 12/02/22 12/02/22 12/03/22 14:59 22:59 06:59 Intake Total 1150 / 1150 597.85 / 1747.85 600 / 2347.85 Output Total 1800 / 1800 450 / 2250 Balance 1150 / 1150 -1202.15 / -52.15 150 / 97.85 Weight last 48 hrs Weight 88.949 kg Weight 129.591 kg Physical Exam Narrative: Patient is awake alert, no acute distress Neck supple S1-S2 regular rate and rhythm per report Clear to auscultation per report No pedal edema. Urinary Catheter Management: Reyes: Cath Placed During This Visit: yes Reason for Continuing Indwelling Catheter: Accurate Measurement of Urinary Output in Critically Ill Patients Urinary Catheter Date of Insertion: 11/29/22 Urinary Catheter Time of Insertion: 13:30 Data 12/03/22 02:34 12/03/22 02:34 A&P Assessment and plan (1) 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: Plan 1. Acute on chronic kidney disease stage III: Patient's baseline creatinine is in the 2 range, presented with a 3.1 and worsened to 3.4 , now improved to 2.6, -s/p continue IV albumin, changed lasix to 40 mg po BID -Has 3+ urine protein, possible that patient has nephrotic syndrome that could be contributing to volume overload. -Place on 2 g sodium restriction and 1500 mL fluid restriction -F/U with Nephrology as out pt 2. Hyponatremia: Mild, improved , 3. New onset CHF: Question NSTEMI, cardiology following 4. Diabetes type 2: Med management per primary team Patient evaluated using audiovisual cart. Time spent 45 minutes Attestations Medical Necessity Statement*: can DC from renal standpoint F/U with Nephrology as out pt Coding Level of Care Code Acute Code for Chg Fwd Diagnoses 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 E11.22
[2022-12-03] MEDS: amlodipine 10 mg Tablet PO (05:50)
[2022-12-03] MEDS: aspirin 81 mg Chew Tablet PO (05:50)
[2022-12-03 06:05] LABS: Glucose Point of Care 115 mg/dL (70-110)
--- NOTE | 2022-12-03 06:31 | PC.NURSE ---
late entry, notified Dr Stokes that pt was feeling more sob with increased O2 requirements from 2L NC to 9L oxymask, orders for abg and 40 mg IV lasix X1, pt states breathing improved after lasix
[2022-12-03] MEDS: albumin 25 G/100 ML BAG 60 G IV ×3 (07:41→23:37)
--- NOTE | 2022-12-03 07:43 | XRR_ITS ---
PROCEDURE INFORMATION: Exam: XR Chest Exam date and time: 12/03/2022 8:12 PM Age: 57 years old Clinical indication: Shortness of breath; Additional info: Increase oxygen demand TECHNIQUE: Imaging protocol: Radiologic exam of the chest. Views: 1 view. COMPARISON: CR XR chest 1V portable [id number] 11/29/2022 9:36 AM FINDINGS: Lungs: Interstitial pulmonary edema. Increased right basilar airspace opacity. Pleural spaces: Unremarkable. No pleural effusion. No pneumothorax. Heart/Mediastinum: Unremarkable. No cardiomegaly. Bones/joints: Unremarkable. XR/XR chest 1V portable [id number] IMPRESSION: Interstitial pulmonary edema with increased right basilar airspace opacity, which may reflect aspiration or pneumonia.
[2022-12-03] MEDS: FUROsemide 40 mg Tablet PO ×2 (08:22→16:11)
[2022-12-03] MEDS: clopidogrel 75 mg Tablet PO (08:22)
[2022-12-03] MEDS: ciprofloxacin 500 mg Tablet PO (08:22)
[2022-12-03] MEDS: metoprolol tartrate 50 mg Tablet 100 MG PO ×2 (08:22→17:48)
[2022-12-03 09:20] LABS: Partial Thromboplastin Time 46.3 SECONDS (23.9-36.7)
--- NOTE | 2022-12-03 09:30 | MR_ITS ---
WS: [id number] MRI RIGHT FOOT without CONTRAST. COMPARISON: 10/10/2018., Radiograph 11/02/2022. Multiplanar, multisequence imaging is performed without contrast. Abnormal configuration of the distal fifth metatarsal. There is loss of the normal distal metatarsal diaphysis with a small amount of edema and penciling of the distal metatarsal. Edema is present withi n the metatarsal head and proximal fifth phalanx. Erosive changes and loss of the normal contour of the second, third and fourth metatarsal heads. Thes e changes were recently described radiographically. There is only is a small amount of edema within t he expected location of the metatarsal heads. These are probably chronic erosive or post osteomyeliti s changes. Mild hallux valgus deformity. There is a soft tissue ulceration measuring 2.6 cm along the plantar surface of the foot at the level of the second metatarsal head. No acute edema. There is fibrotic. No soft tissue fluid collections. There is a small amount of edema along the lateral distal foot. MR/MR foot RT wo con* [id number] IMPRESSION: 1. Marrow edema suggest an acute process involving the fifth metatarsal head a nd proximal phalanx. Suspicious for osteomyelitis. 2. Additional erosive changes and abnormal configuration of the second through fourth metatarsal heads with only very minimal if any edema. These are probabl y chronic areas of osteomyelitis or posttraumatic changes. 3. Focal 2.6 cm ulcer along the plantar surface of the foot at the level of th e second metatarsal head. No increased T2 signal. 4. Mild cellulitis over the lateral distal fifth metatarsal and toe.
[2022-12-03 11:09] LABS: Glucose Point of Care 158 mg/dL (70-110)
--- NOTE | 2022-12-03 11:23 | P.PN_ITS ---
Subjective Subjective: Patient is laying supine Endorsing feeling slightly better Currently on 5 L of high flow nasal cannula Eating breakfast No active complaint Adequate urine output Creatinine improving today is 2.6 Vitals/I&O/Wt Last Vital Signs Temp 97.9 F 12/03/22 07:46 Pulse 82 12/03/22 09:17 Resp 18 12/03/22 09:17 BP 139/72 12/03/22 07:46 Pulse Ox 95 12/03/22 09:17 O2 Del Method 12/03/22 09:17 O2 Flow Rate 6 12/03/22 09:17 12/02/22 12/03/22 12/03/22 22:59 06:59 14:59 Intake Total 597.85 / 1747.85 600 / 2347.85 240 / 240 Output Total 1800 / 1800 450 / 2250 Balance -1202.15 / -52.15 150 / 97.85 240 / 240 Weight last 48 hrs Weight 88.949 kg Weight 129.591 kg Physical Exam Narrative: Clinical telemetry fluid overload Lower extremities, with compression wraps Currently on 5 L Crackles positive Abdomen distended Awake and alert Pleasant cooperative GCS 15 Urinary Catheter Management: Reyes: Cath Placed During This Visit: yes Reason for Continuing Indwelling Catheter: Accurate Measurement of Urinary Output in Critically Ill Patients Urinary Catheter Date of Insertion: 11/29/22 Urinary Catheter Time of Insertion: 13:30 Data 12/03/22 02:34 12/03/22 02:34 A&P Assessment and plan (1) CKD (chronic kidney disease): (2) PVD (peripheral vascular disease): (3) Chronic ulcer of right foot with fat layer exposed: (4) 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: (5) Diabetic peripheral neuropathy associated with type 2 diabetes mellitus: (6) Acute diastolic heart failure: (7) Hyperkalemia: (8) Hypoxia: (9) Type 2 diabetes mellitus: Plan Acute diastolic heart failure, decompensated Appreciate nephro recommendations for diuretic management Acute on chronic kidney disease: Creatinine improving with albumin and makes combination, creatinine today is 2.6 Hypervolemic, hyponatremia: Improving NSTEMI: Awaiting angiogram We will plan for angiogram once creatinine is stable Acute hypoxia related to CHF exacerbation currently on 5 L Does not use oxygen as per the patient he was using oxygen a year ago and he was transitioned off Lives alone at home, he does have 2 cam boot and he is still driving Patient is not sure whether he would agree for [facility] placement for now Continue wound care Diabetic foot ulcer History of nephropathy, uses cam boot for ambulation at home, MRI foot requested Full code Low-sodium cardiac diet DVT prophylaxis covered with heparin Attestations Medical Necessity Statement*: Awaiting angiogram Diagnoses CKD (chronic kidney disease) N18.9 PVD (peripheral vascular disease) I73.9 Chronic ulcer of right foot with fat layer exposed L97.512 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 L97.423 Diabetic peripheral neuropathy associated with type 2 diabetes mellitus E11.42 Acute diastolic heart failure I50.31 Hyperkalemia E87.5 Hypoxia R09.02 Type 2 diabetes mellitus E11.9
[2022-12-03] MEDS: insulin lispro 100 unit/1 mL SUBCUT ×2 (12:05→20:39)
[2022-12-03] MEDS: pantoprazole 40 mg SDV IVP (12:05)
--- NOTE | 2022-12-03 15:15 | PC.NURSE ---
physician orders to pause heparin gtt during MRI, resume when patient comes back.
--- NOTE | 2022-12-03 16:24 | PC.NURSE ---
patient back from MRI heparin gtt resumed at previous rate of 23ml/hr lab called regarding ptt
[2022-12-03 17:00] LABS: Partial Thromboplastin Time 47.5 SECONDS (23.9-36.7)
[2022-12-03 17:17] LABS: Glucose Point of Care 124 mg/dL (70-110)
[2022-12-03] MEDS: doxycycline 100 mg Tablet PO (17:48)
[2022-12-03] MEDS: heparin drip 25,000 UNIT/500 ML PREMIX 26 UNIT IV (18:12)
[2022-12-03] MEDS: atorvastatin 40 mg Tablet PO (20:23)
[2022-12-03] MEDS: gabapentin 300 mg Capsule PO (20:23)
[2022-12-03] MEDS: insulin glargine 100 units/1 mL 40 UNIT SUBCUT (20:23)
[2022-12-03 21:01] LABS: Glucose Point of Care 147 mg/dL (70-110)
[2022-12-04] VITALS (40 sets, daily range): BP systolic 139–152; BP diastolic 75–81; PULSE 66–83; RESP 16–35; TEMP 36.6–37.6; O2SAT 85–99
[2022-12-04 01:21] LABS: Anion Gap 13.9 (5-19); Blood Urea Nitrogen 42 mg/dL (6-20); Calcium 9.2 mg/dL (8.5-10.5); Carbon Dioxide 28 mmol/L (22-29); Chloride 99 mmol/L (98-107); Glomerular Filtration Rate 23.6 mL/min (90-130); Glucose 85 mg/dL (65-115); Osmolality Calculated 294 mOsm/kg (285-295); Potassium 3.9 mmol/L (3.5-5.1); Sodium 137 mmol/L (136-145)
--- NOTE | 2022-12-04 02:00 | PC.NURSE ---
Awaiting PTT results.
[2022-12-04 02:13] LABS: Partial Thromboplastin Time 72.1 SECONDS (23.9-36.7)
[2022-12-04 06:29] LABS: Glucose Point of Care 91 mg/dL (70-110)
[2022-12-04] MEDS: amlodipine 10 mg Tablet PO (06:51)
[2022-12-04] MEDS: aspirin 81 mg Chew Tablet PO (06:51)
[2022-12-04] MEDS: FUROsemide 40 mg Tablet PO (07:43)
[2022-12-04] MEDS: albumin 25 G/100 ML BAG 60 G IV (07:45)
--- NOTE | 2022-12-04 07:59 | PM.PN ---
Subjective Subjective: no new complaints Medications: Reviewed: Yes Vitals/I&O/Wt Last Vital Signs Temp 98.4 F 12/04/22 04:30 Pulse 80 12/04/22 07:52 Resp 20 H 12/04/22 07:52 BP 147/78 12/04/22 07:52 Pulse Ox 92 12/04/22 04:30 O2 Del Method 12/04/22 04:30 O2 Flow Rate 5 12/04/22 04:30 12/03/22 12/04/22 12/04/22 22:59 06:59 14:59 Intake Total 592.150 / 1172.150 311.467 / 1483.617 Output Total 1999 820 / 2820 Balance -1407.850 / -827.850 -508.533 / -1336.383 Weight last 48 hrs Weight 88.949 kg Physical Exam Narrative: Patient is awake alert, no acute distress Neck supple S1-S2 regular rate and rhythm per report Clear to auscultation per report No pedal edema. Urinary Catheter Management: Reyes: Cath Placed During This Visit: yes Reason for Continuing Indwelling Catheter: Accurate Measurement of Urinary Output in Critically Ill Patients Urinary Catheter Date of Insertion: 11/29/22 Urinary Catheter Time of Insertion: 13:30 Data 12/03/22 02:34 12/04/22 00:50 A&P Assessment and plan (1) 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: Plan 1. Acute on chronic kidney disease stage III: Patient's baseline creatinine is in the 2 range, presented with a 3.1 and worsened to 3.4 , now at 2.9, -s/p IV albumin, changed lasix to 40 mg po BID -Has 3+ urine protein, possible that patient has nephrotic syndrome that could be contributing to volume overload. -Place on 2 g sodium restriction and 1500 mL fluid restriction - Cardiology panning [facility] --> Given CKD with DM , he has 20-30 % chance of developing ARJUN post procedure and 4-5 % chance of needing dialysis - pt agreeble to initiate HD if indicated - still on 5L Fio2 - Will give 80 mg IV Lasix -F/U with Nephrology as out pt 2. Hyponatremia: Mild, improved , 3. New onset CHF: NSTEMI, cardiology following 4. Diabetes type 2: Med management per primary team Patient evaluated using audiovisual cart. Time spent 45 minutes Attestations Medical Necessity Statement*: Awaiting angiogram Coding Level of Care Code Acute Code for Chg Fwd Diagnoses 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 E11.22
[2022-12-04 08:51] LABS: Partial Thromboplastin Time 78.9 SECONDS (23.9-36.7)
--- NOTE | 2022-12-04 09:00 | PC.SOCIAL ---
Imm update Imm updated with patient at bedside. Copy of page 2 provided. Patient verbalized understanding. Copy in chart initialed, dated and timed.
--- NOTE | 2022-12-04 09:27 | P.PN_ITS ---
Subjective Subjective: Patient had a chest x-ray yesterday which revealed right lower lobe as base densities, suggestive of aspiration pneumonia. He was requiring higher oxygen. Today he seems to be feeling better. Currently he is on oxygen 5 L/min by nasal cannula. He does up to 9 L/min yesterday. He had a low-grade temp of 99.8 yesterday. Today he is afebrile. Medications: Medication Review Details: Current Medications Acetaminophen (Acetaminophen 325 Mg Tablet) 650 mg PO Q6H PRN PRN Reason: Mild/Mod Pain Or Temp >/= 101 Last Admin: 12/02/22 13:44 Dose: 650 mg Albuterol/Ipratropium (Ipratropium-Albuterol 3 Ml Neb) 3 ml INHALATION Q6H.RESP PRN PRN Reason: SHORTNESS OF BREATH Amlodipine Besylate (Amlodipine 10 Mg Tablet) 10 mg PO QAM [facility] Last Admin: 12/04/22 06:51 Dose: 10 mg Aspirin (Aspirin 81 Mg Chew Tablet) 81 mg PO QAM [facility] Last Admin: 12/04/22 06:51 Dose: 81 mg Atorvastatin Calcium (Atorvastatin 40 Mg Tablet) 40 mg PO BEDTIME [facility] Last Admin: 12/03/22 20:23 Dose: 40 mg Clopidogrel Bisulfate (Clopidogrel 75 Mg Tablet) 75 mg PO DAILY [facility] Last Admin: 12/03/22 08:22 Dose: 75 mg Dextrose (Dextrose 50% Syringe 50 Ml) 25 ml IVP ONCE PRN; Protocol PRN Reason: hypoglycemia protocol Dextrose (Dextrose 50% Syringe 50 Ml) 50 ml IVP PRN PRN; Protocol PRN Reason: hypoglycemia protocol Doxycycline Monohydrate (Doxycycline 100 Mg Tablet) 100 mg PO BID [facility]; Protocol Last Admin: 12/03/22 17:48 Dose: 100 mg Furosemide (Furosemide 40 Mg Tablet) 40 mg PO BID@08,16 [facility] Last Admin: 12/04/22 07:43 Dose: 40 mg Gabapentin (Gabapentin 300 Mg Capsule) 300 mg PO BEDTIME [facility] Last Admin: 12/03/22 20:23 Dose: 300 mg Glucagon (Glucagon 1 Mg/Ml Inj 1 Ml) 1 mg IM ONCE PRN; Protocol PRN Reason: Adult Acute Hypoglycemia Prot. Heparin Sodium (Porcine) (Heparin 5,000 Unit/Ml Inj 1 Ml) 0 unit IV PRN PRN; Protocol PRN Reason: Heparin weight-base protocol Last Admin: 12/02/22 15:08 Dose: 2,700 unit Heparin Sodium/Sodium Chloride (Heparin Drip) 25,000 unit in 500 mls @ 0 mls/hr IV .Q0M [facility]; Protocol Last Titration: 12/04/22 02:20 Dose: 10.24 unit/kg/hr, 26 mls/hr Dextrose (D5w) 500 mls @ 100 mls/hr IV ONCE PRN; Protocol PRN Reason: Adult Acute Hypoglycemia Prot Albumin Human (Albumin) 25 g in 100 mls @ 60 mls/hr IV Q8H [facility] Last Admin: 12/04/22 07:45 Dose: 60 mls/hr Insulin Glargine (Insulin Glargine 100 Units/1 Ml) 40 unit SUBCUT BEDTIME [facility] Last Admin: 12/03/22 20:23 Dose: 40 unit Insulin Human Lispro (Insulin Lispro 100 Unit/1 Ml) 0 unit SUBCUT WM&BEDTIME [facility]; Protocol Last Admin: 12/04/22 07:53 Dose: Not Given Metoprolol Tartrate (Metoprolol Tartrate 50 Mg Tablet) 100 mg PO BID [facility] Last Admin: 12/03/22 17:48 Dose: 100 mg Ondansetron HCl (Ondansetron 2 Mg/Ml Sdv 2 Ml) 4 mg IVP Q8H PRN PRN Reason: vomiting, or N/V if npo Pantoprazole Sodium (Pantoprazole 40 Mg Sdv) 40 mg IVP Q24H [facility] Last Admin: 12/03/22 12:05 Dose: 40 mg Vitals/I&O/Wt Last Vital Signs Temp 98.4 F 12/04/22 04:30 Pulse 80 12/04/22 08:00 Resp 20 H 12/04/22 08:00 BP 147/78 12/04/22 08:00 Pulse Ox 93 12/04/22 07:15 O2 Del Method 12/04/22 07:15 O2 Flow Rate 5 12/04/22 07:15 12/03/22 12/04/22 12/04/22 22:59 06:59 14:59 Intake Total 592.150 / 1172.150 311.467 / 1483.617 120 / 120 Output Total 1999 820 / 2820 Balance -1407.850 / -827.850 -508.533 / -1336.383 120 / 120 Weight last 48 hrs Weight 196 lb 1.6 oz Physical Exam Narrative: GENERAL: The patient is alert and oriented times three. Not in any acute distress. HEENT: No significant pallor, icterus or lymphadenopathy.Oral cavity: There are no mucous membrane lesions. NECK: Trachea appears to be central. No masses noted. No JVD or thyromegaly appreciated. RESPIRATORY: Breath sounds are heard bilaterally with slightly diminished intensity of breath sounds at the bases. Occasional coarse crackles. BREASTS: Deferred. HEART: The heart sounds are normal. No S3 or S4. No significant murmurs. No pericardial rub ABDOMEN: No vessel pulsations or distention. No tenderness. No organomegaly appreciated. Bowel sounds are normally heard. : Deferred. RECTAL: Deferred. LYMPHATIC: No lymphadenopathy noted in the neck. EXTREMITIES: 1+ edema bilaterally. MUSCULOSKELETAL: No acute joint deformities or swelling SKIN: There are no significant rashes or ecchymosis NEUROPSYCHIATRIC: The patient is alert and oriented x3. Appears to be in a good mood. No tremors or rigidity noted. Urinary Catheter Management: Reyes: Cath Placed During This Visit: yes Reason for Continuing Indwelling Catheter: Accurate Measurement of Urinary Output in Critically Ill Patients Urinary Catheter Date of Insertion: 11/29/22 Urinary Catheter Time of Insertion: 13:30 Data 12/03/22 02:34 12/04/22 00:50 Other Labs: Laboratory Last Values WBC 13.0 10^3/uL (4.0-10.0) H 12/03/22 02:34 RBC 4.07 10^6/uL (4.1-5.3) L 12/03/22 02:34 Hgb 10.9 g/dL (11.7-16.6) L 12/03/22 02:34 Hct 35.9 % (42.0-52.0) L 12/03/22 02:34 MCV 88.2 fl (80-94) 12/03/22 02:34 MCH 26.8 pg (28.0-34.0) L 12/03/22 02:34 MCHC 30.4 g/dL (30.0-36.0) 12/03/22 02:34 RDW 16.1 % (12.1-15.1) H 12/03/22 02:34 Plt Count 271 10^3/cmm (130-400) 12/03/22 02:34 MPV 12.6 fL (7.4-10.4) H 12/03/22 02:34 Neut % (Auto) 81.0 % 12/03/22 02:34 Lymph % (Auto) 6.2 % 12/03/22 02:34 [place] % (Auto) 8.6 % 12/03/22 02:34 Eos % (Auto) 2.5 % 12/03/22 02:34 Baso % (Auto) 0.8 % 12/03/22 02:34 Neut # (Auto) 10.52 10^3/uL (1.8-7.7) H 12/03/22 02:34 Lymph # (Auto) 0.8 10^3/uL (0.8-4.8) 12/03/22 02:34 [place] # (Auto) 1.1 10^3/uL (0.2-0.9) H 12/03/22 02:34 Eos # (Auto) 0.3 10^3/uL (0.0-0.8) 12/03/22 02:34 Baso # (Auto) 0.1 10^3/uL (0.0-0.1) 12/03/22 02:34 Nucleated RBC % (auto) 0 % 12/03/22 02:34 Nucleated RBCs # 0.0 /100WBC 12/03/22 02:34 APTT 78.9 SECONDS (23.9-36.7) H 12/04/22 08:08 Specimen Type Arterial 12/03/22 01:50 Sample Site Radial, right 12/03/22 01:50 ABG pH 7.31 (7.35-7.45) L 12/03/22 01:50 ABG pCO2 54.1 mmHg (35-45) H 12/03/22 01:50 ABG pO2 67.2 mmHg (80.0-100.0) L 12/03/22 01:50 ABG HCO3 27.5 mmol/L (22-26) H 12/03/22 01:50 ABG Base Excess 0.5 mmol/L (-2.0-2.0) 12/03/22 01:50 Pedro Test Pos 12/03/22 01:50 Hematocrit 33.5 % (42-52) L 12/03/22 01:50 Hgb O2 Saturation 90.3 % (95-100) L 11/29/22 09:50 Carboxyhemoglobin 1.6 %THgb (0.4-20.1) 11/29/22 09:50 Methemoglobin 0.5 % (0.4-1.5) 11/29/22 09:50 Total Hemoglobin 12.2 g/dL (14-18) L 11/29/22 09:50 O2 Delivery Device Oxy mask 12/03/22 01:50 O2 Liters/Min 9.0 % 12/03/22 01:50 Communication Manager ID [email or web address] 12/03/22 01:50 Sodium 137 mmol/L (136-145) 12/04/22 00:50 Potassium 3.9 mmol/L (3.5-5.1) 12/04/22 00:50 Chloride 99 mmol/L (98-107) 12/04/22 00:50 Carbon Dioxide 28 mmol/L (22-29) 12/04/22 00:50 Anion Gap 13.9 (5-19) 12/04/22 00:50 BUN 42 mg/dL (6-20) H 12/04/22 00:50 Creatinine 2.8 mg/dL (0.7-1.2) H 12/04/22 00:50 GFR Calculation 23.6 mL/min (90-130) L 12/04/22 00:50 Glucose 85 mg/dL (65-115) 12/04/22 00:50 POC Glucose 91 mg/dL (70-110) 12/04/22 06:26 Estimat Average Glucose 203 11/29/22 09:28 Hemoglobin A1c 8.7 % (4.0-6.0) H 11/29/22 09:28 Calculated Osmolality 294 mOsm/kg (285-295) 12/04/22 00:50 Lactic Acid 0.8 mmol/L (0.5-2.2) 11/29/22 10:08 Calcium 9.2 mg/dL (8.5-10.5) 12/04/22 00:50 Phosphorus 3.7 mg/dL (2.5-4.5) 12/01/22 05:14 Magnesium 1.7 mg/dL (1.7-2.3) 12/02/22 00:35 Total Bilirubin 0.4 mg/dL (0.15-1.2) 11/30/22 03:18 AST 27 U/L (0-40) 11/30/22 03:18 ALT 14 U/L (0-41) 11/30/22 03:18 Alkaline Phosphatase 202 U/L (40-130) H 11/30/22 03:18 Troponin T Baseline 442 ng/L (0-15) H* 11/29/22 10:00 Troponin T 120 Minute 415.2 ng/L (0-15) H 11/29/22 11:56 Delta Troponin T -26.8 ABS# (0-10) L 11/29/22 11:56 Troponin T Hi Sens 6Hr 421.0 ng/L (0-15) H 11/29/22 16:00 Troponin T Hi Sens 6Hr Delta -21.0 ng/L (0-12) L 11/29/22 16:00 NT-Pro-B Natriuret Pep 44106 pg/mL (0-125) H 11/29/22 10:08 Total Protein 5.8 g/dL (6.6-8.7) L D 11/30/22 03:18 Albumin 2.3 g/dL (3.5-5.2) L 11/30/22 03:18 Globulin 3.5 g/dL (1.3-4.6) 11/30/22 03:18 Triglycerides 103 mg/dL (0-150) 11/29/22 10:00 Cholesterol 142 mg/dL (0-200) 11/29/22 10:00 LDL Cholesterol, Calc 81 mg/dL (50-129) 11/29/22 10:00 HDL Cholesterol 40 mg/dL (60-100) L 11/29/22 10:00 LDL/HDL Ratio 2.03 RATIO (0.00-3.22) 11/29/22 10:00 Cholesterol/HDL Ratio 3.55 mg/dL (1.0-5.00) 11/29/22 10:00 Procalcitonin 0.13 ng/mL (0-0.5) 11/29/22 10:08 TSH 2.21 uIU/mL (0.27-4.20) 11/29/22 10:00 Coronavirus 229E (PCR) Not detected (NOT DETECT) 11/29/22 13:25 SARS-CoV-2 (PCR) Not detected (NOT DETECT) 11/29/22 13:25 CXR: Radiologist's impression: Done on 12/03/2022 interstitial pulmonary edema with increased right basilar airspace opacity, which may reflect aspiration or pneumonia. ? A&P Assessment and plan (1) Acute diastolic heart failure: Clinically getting compensated. Seems to have some pneumonia of the right lower lobe based on chest x-ray. His elevated white cell count, increased oxygen requirement and a low-grade fever, or may suggest an infective process. (2) Elevated troponin: Most likely this is related to a non-ST elevation myocardial infarction. Patient requires a cardiac catheterization to further evaluate the coronary status. In view of his new diagnosis of pneumonia, it would be appropriate to hold off on this till the infection is properly treated (3) Type 2 diabetes mellitus: Aggressive management of the diabetes would be appropriate (4) 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: The kidney function seems fairly stable. We will check with the nephrology service as to the appropriate timing for the angiogram (5) Hyperkalemia: Currently normokalemic. May continue on the current management Plan Continue on the current medications for the time being. Need to discuss about the appropriate timing of the angiogram. Attestations Medical Necessity Statement*: Patient requires continued hospital stay for close monitoring and further management Coding Level of Care Code Acute Code for [facility] Fwd Diagnoses Acute diastolic heart failure I50.31 Elevated troponin R77.8 Type 2 diabetes mellitus E11.9 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 E11.22 Hyperkalemia E87.5
[2022-12-04] MEDS: metoprolol tartrate 50 mg Tablet 100 MG PO ×2 (09:33→17:38)
[2022-12-04] MEDS: clopidogrel 75 mg Tablet PO (09:33)
[2022-12-04] MEDS: doxycycline 100 mg Tablet PO ×2 (09:33→17:38)
[2022-12-04 11:29] LABS: Glucose Point of Care 469 mg/dL (70-110)
[2022-12-04 11:29] LABS: Glucose Point of Care 149 mg/dL (70-110)
[2022-12-04 11:29] LABS: Glucose Point of Care 153 mg/dL (70-110)
[2022-12-04] MEDS: insulin lispro 100 unit/1 mL SUBCUT ×2 (11:54→17:37)
[2022-12-04] MEDS: pantoprazole 40 mg SDV IVP (12:17)
[2022-12-04 13:28] LABS: Partial Thromboplastin Time 67.2 SECONDS (23.9-36.7)
--- NOTE | 2022-12-04 13:37 | PM.PN ---
Subjective Subjective: Worsening of leukocytosis however patient has remained afebrile, Touched base with nephrology to give us a timeline to proceed with angiogram however his baseline creatinine is around 2.5, Spoke with Dr. Allen to evaluate him again after MRI report which is showing chronic osteomyelitis changes Hospice with Dr. Love see if he can do stress of the size of an angiogram Right lower lobe infiltrate possible aspiration pneumonia, start Augmentin Patient is on nasal cannula Afebrile Hemodynamic stable Increased diuretics to IV 40 daily discontinue albumin Finished 48 hours on heparin, discontinue heparin today and switch to DVT prophylaxis regimen Vitals/I&O/Wt Last Vital Signs Temp 98.4 F 12/04/22 04:30 Pulse 80 12/04/22 12:00 Resp 17 12/04/22 12:00 BP 139/75 12/04/22 12:00 Pulse Ox 92 12/04/22 12:00 O2 Del Method 12/04/22 12:00 O2 Flow Rate 5 12/04/22 07:15 12/03/22 12/04/22 12/04/22 22:59 06:59 14:59 Intake Total 592.150 / 1172.150 311.467 / 1483.617 340 / 340 Output Total 1999 / 1999 820 / 2820 700 / 700 Balance -1407.850 / -827.850 -508.533 / -1336.383 -360 / -360 Weight last 48 hrs Weight 88.949 kg Physical Exam Narrative: Awake and alert Clinical signs of fluid overload Currently on nasal cannula Hemodynamically stable Afebrile GCS 15 Awake and alert Nonfocal neuro exam Both legs covered with Lobo wrap's Abdomen soft distended S1, S2 Hemodynamically stable Pleasant and cooperative Urinary Catheter Management: Reyes: Cath Placed During This Visit: yes Reason for Continuing Indwelling Catheter: Accurate Measurement of Urinary Output in Critically Ill Patients Urinary Catheter Date of Insertion: 11/29/22 Urinary Catheter Time of Insertion: 13:30 Data 12/03/22 02:34 12/04/22 00:50 Micro: Microbiology 11/29/22 10:08 Blood Culture - Final Blood NO GROWTH AFTER 5 DAYS 11/29/22 10:11 Blood Culture - Final Blood NO GROWTH AFTER 5 DAYS A&P Assessment and plan (1) Aspiration pneumonia: (2) CKD (chronic kidney disease): (3) PVD (peripheral vascular disease): (4) Chronic ulcer of right foot with fat layer exposed: (5) 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 Coronado in agreement spoke with Dr. Dow this morning Chronic kidney disease his baseline creatinine is around 2.5, his risk factor to require dialysis high would avoid angiogram for now Spoke with global account director Worsening leukocytosis, acute hypoxia Vascular congestion on x-ray with aspiration pneumonia Increase the dose of diuretics Discontinue albumin Start Augmentin Give IV dose of Lasix 40 mg right now Afebrile Chronic osteomyelitis requested Dr. Allen to see him as well after MRI report His consult note was reviewed Patient is getting dressing change Hypertension: Continue amlodipine, metoprolol, Type 2 diabetes Sliding scale along insulin DVT prophylaxis heparin Finish ACS protocol Continue doxycycline for lower extremity ulcers Full code Patient might need rehab A lot of coordination of care took place today including talking to different physicians and updating home health care case manager Attestations Medical Necessity Statement*: Continue medical management and High Time for a total of 60 minutes, includes reviewing past or interval history, examining/interviewing patient, placing orders, counseling patient/family/other support, updating patient/family/other support, discussing plan of care with staff, communicating with other healthcare providers, documenting encounter and coordinating care Diagnoses Aspiration pneumonia J69.0 CKD (chronic kidney disease) N18.9 PVD (peripheral vascular disease) I73.9 Chronic ulcer of right foot with fat layer exposed L97.512 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 L97.423 Diabetic peripheral neuropathy associated with type 2 diabetes mellitus E11.42 Acute diastolic heart failure I50.31 Chronic osteomyelitis M86.60 Diabetic ulcer of foot associated with diabetes mellitus due to underlying condition, with fat layer exposed E08.621; L97.502
[2022-12-04] MEDS: heparin 5,000 unit/mL INJ 1 mL 5000 UNIT SUBCUT (15:02)
[2022-12-04] MEDS: FUROsemide 10 mg/mL SDV 4mL 40 MG IVP ×2 (15:03→20:45)
[2022-12-04] MEDS: amoxicillin-clav 875-125 mg Tablet 1 TAB PO (17:38)
[2022-12-04 20:12] LABS: Glucose Point of Care 128 mg/dL (70-110)
[2022-12-04] MEDS: gabapentin 300 mg Capsule PO (20:45)
[2022-12-04] MEDS: atorvastatin 40 mg Tablet PO (20:45)
[2022-12-04] MEDS: insulin glargine 100 units/1 mL 40 UNIT SUBCUT (20:46)
[2022-12-05] VITALS (40 sets, daily range): BP systolic 130–150; BP diastolic 59–82; PULSE 63–80; RESP 15–31; TEMP 36.7; O2SAT 54–99
--- NOTE | 2022-12-05 | ECG_ITS ---
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 Interpretive Statements NAME OF STUDY: LEXISCAN SESTAMIBI STRESS TEST INDICATION: Chest Pain PROCEDURE: At the baseline, the EKG revealed normal sinus rhythm with a right bundle branch block pattern. The baseline heart was 73 bpm with a blood pressue of 143/67 mm of Hg Lexiscan was infused over a period of 20 seconds. A total of 0.4 milligrams of Lexiscan was infused. The stress phase was continued for a total of 5 minutes. Heart rate at the end of the stress phase was 81 bpm with a blood pressure 130/70 mm of Hg. The EKG at the peak infusion revealed no significant changes Sestamibi was injected 20 seconds after the Lexiscan infusion. Heart rate at the end of the recovery phase was 79 bpm with a blood pressure of 130/59 mm of Hg. CONCLUSION: 1. No significant EKG changes with the LexiScan infusion 2. No LexiScan induced chest pain or cardiac arrhythmia 3. Normal blood pressure and heart rate response 4. Sestamibi/sestamibi perfusion scan pending; see separate report. Electronically Signed On 12-09-2022 23:26:17 CDT by Laurita Love M.D. [id number]
[2022-12-05] MEDS: heparin 5,000 unit/mL INJ 1 mL 5000 UNIT SUBCUT ×2 (02:08→13:11)
[2022-12-05 03:35] LABS: Basophils # 0.1 10^3/uL (0.0-0.1); Basophils % 0.7 %; Eosinophils # 0.7 10^3/uL (0.0-0.8); Eosinophils % 5.8 %; Hematocrit 34.9 % (42.0-52.0); Hemoglobin 10.9 g/dL (11.7-16.6); Lymphocytes % 8.4 %; Mean Corpuscular HGB Conc 31.2 g/dL (30.0-36.0); Mean Corpuscular Hemoglobin 26.8 pg (28.0-34.0); Monocytes # 1.1 10^3/uL (0.2-0.9); Monocytes % 9.5 %; Neutrophils # 8.54 10^3/uL (1.8-7.7); Neutrophils % 74.6 %; Nucleated Red Blood Cells % 0 %; Platelet Count 272 10^3/cmm (130-400); Red Blood Count 4.06 10^6/uL (4.1-5.3); Red Cell Distribution Width 15.8 % (12.1-15.1); White Blood Count 11.5 10^3/uL (4.0-10.0)
[2022-12-05 03:49] LABS: Anion Gap 17.1 (5-19); Blood Urea Nitrogen 44 mg/dL (6-20); Calcium 9.3 mg/dL (8.5-10.5); Carbon Dioxide 27 mmol/L (22-29); Chloride 97 mmol/L (98-107); Glomerular Filtration Rate 21.8 mL/min (90-130); Glucose 108 mg/dL (65-115); Osmolality Calculated 296 mOsm/kg (285-295); Potassium 4.1 mmol/L (3.5-5.1); Sodium 137 mmol/L (136-145)
[2022-12-05] MEDS: amlodipine 10 mg Tablet PO (06:25)
[2022-12-05] MEDS: aspirin 81 mg Chew Tablet PO (06:25)
[2022-12-05 06:27] LABS: Glucose Point of Care 95 mg/dL (70-110)
[2022-12-05] MEDS: regadenoson 0.4 Mg/5 ml Syringe IVP (08:00)
[2022-12-05] MEDS: doxycycline 100 mg Tablet PO ×2 (09:49→18:07)
[2022-12-05] MEDS: clopidogrel 75 mg Tablet PO (09:49)
[2022-12-05] MEDS: metoprolol tartrate 50 mg Tablet 100 MG PO ×2 (09:49→18:00)
[2022-12-05] MEDS: amoxicillin-clav 875-125 mg Tablet 1 TAB PO ×2 (09:49→18:07)
[2022-12-05 11:16] LABS: Glucose Point of Care 113 mg/dL (70-110)
--- NOTE | 2022-12-05 12:02 | P.PN_ITS ---
Subjective Subjective: Status post discharge Awaiting the results Patient is stating that he would like to go home he is not motivated to go to senior living he has been dealing with his cam boot for last [address] Allen has recommended outpatient management for his chronic osteomyelitis Vitals/I&O/Wt Last Vital Signs Temp 98.1 F 12/05/22 03:24 Pulse 80 12/05/22 08:20 Resp 19 H 12/05/22 07:00 BP 144/79 12/05/22 09:00 Pulse Ox 98 12/05/22 07:00 O2 Del Method 12/04/22 22:05 O2 Flow Rate 5 12/04/22 22:05 12/04/22 12/05/22 12/05/22 22:59 06:59 14:59 Intake Total 522.2 / 1048.533 0 / 1048.533 Output Total 1500 / 2200 600 / 2800 Balance -977.8 / -1151.467 -600 / -1751.467 Physical Exam Narrative: Face mask3 l Hemodynamically stable Clinical signs of fluid overload Legs with foul-smelling odor Abdomen soft Concern, extubated Hemodynamically stable Pleasant and cooperative GCS 15 Nonfocal neuro exam Urinary Catheter Management: Reyes: Cath Placed During This Visit: yes Reason for Continuing Indwelling Catheter: Accurate Measurement of Urinary Output in Critically Ill Patients Urinary Catheter Date of Insertion: 11/29/22 Urinary Catheter Time of Insertion: 13:30 Data 12/05/22 02:54 12/05/22 02:54 Micro: Microbiology 11/29/22 10:08 Blood Culture - Final Blood NO GROWTH AFTER 5 DAYS 11/29/22 10:11 Blood Culture - Final Blood NO GROWTH AFTER 5 DAYS A&P Assessment and plan (1) Chronic osteomyelitis: (2) Aspiration pneumonia: (3) CKD (chronic kidney disease): (4) PVD (peripheral vascular disease): (5) Chronic ulcer of right foot with fat layer exposed: (6) 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 antibiotics, outpatient follow with wound care and ID Acute on chronic hypoxia currently on 3 L facemask Patient uses to cam boot, he is eager to return home Awaiting for stress test report Acute on chronic kidney disease, Adequate diuresis No indication for dialysis Full code Diabetic diet DVT prophylaxis: Heparin Attestations Medical Necessity Statement*: Plan for discharge in the next 24 to 30 hours Diagnoses Chronic osteomyelitis M86.60 Aspiration pneumonia J69.0 CKD (chronic kidney disease) N18.9 PVD (peripheral vascular disease) I73.9 Chronic ulcer of right foot with fat layer exposed L97.512 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
[2022-12-05] MEDS: pantoprazole 40 mg SDV IVP (13:11)
[2022-12-05] MEDS: FUROsemide 10 mg/mL SDV 4mL 40 MG IVP (13:12)
--- NOTE | 2022-12-05 13:52 | NMCV_ITS ---
NM joseph perf SPECT r/s* [id number] Tim Robison Age: 57 Gender: M : 1965 Exam Date: 12/05/2022 07:03 Ordering Phys: Abisai Maddox MD Technologist: SHIV Grimes Exam Location: [facility] Indications: CHEST PAIN STRESS TEST Please see separate stress test report in [facility] for full findings IMAGE PROTOCOL Rest/Stress 1 Lexiscan Day Radiopharmaceutical Dose (mCi) Administration Site Administered by Rest: Tc-99m 10.7 IV SHIV Muse Sestamibi Stress:Tc-99m 33.0 IV SHIV Muse Sestamibi Rest: 05-Dec-2022 60 Discovery 630 Stress: 05-Dec-2022 30 Discovery 630 0.4mg Lexiscan. Supine position only as patient was unable to lay prone. SPECT RESULTS Technical Quality: Excellent Raw Data Analysis: Normal Image Corrections: No attenuation or motion correction applied Summed Stress Score: 20 Summed Rest Score: 19 Summed Difference Score: 2 PERFUSION FINDINGS Moderate to large areas of moderate to severely decreased tracer uptake in the mid anterior, anterolateral, inferior and all the apical segments. Subtle areas of reversibility were noted in the anterolateral and inferior regions. FUNCTIONAL RESULTS (calculated via Gated SPECT) Stress Image LV EF (%): 56 Stress EDV (mL):129 TID: 0.99 Stress ESV (mL):57 FUNCTIONAL FINDINGS: Segmental wall motion analysis revealed mild diffuse hypokinesia of the septum and the LV apex IMPRESSIONS 1. Myocardial perfusion imaging revealing moderate to large areas of persistent decreased tracer uptake in the anterior, anterolateral, inferior and apical segments with some subtle areas of reversibility in the anterolateral and inferior regions suggesting myocardial scarring in the distribution of all the 3 coronary arteries with some small areas of possible gurjit-infarction ischemia. 2. Normal LV ejection fraction of 56%. 3. LV wall motion analysis revealing mild diffuse hypokinesia of the septum and the LV apex. 4. Mildly dilated LV cavity, with an end-systolic volume of 56 ml. No similar previous studies are available for comparison Dr Laurita Love MD [facility] (Electronically Signed) Final Date: 05 December 2022 12:42 S
--- NOTE | 2022-12-05 14:23 | PC.RESP ---
Patient is refusing Bipap at this time.
--- NOTE | 2022-12-05 15:39 | PM.PN ---
Subjective Subjective: Status post stress test today Medications: Reviewed: Yes Vitals/I&O/Wt Last Vital Signs Temp 98.1 F 12/05/22 03:24 Pulse 63 12/05/22 12:00 Resp 15 12/05/22 12:00 BP 150/82 12/05/22 12:00 Pulse Ox 95 12/05/22 14:23 O2 Del Method 12/05/22 14:23 O2 Flow Rate 2.5 12/05/22 14:23 12/05/22 12/05/22 12/05/22 06:59 14:59 22:59 Intake Total 0 / 1048.533 240 / 240 Output Total 600 / 2800 600 / 600 Balance -600 / -1751.467 -360 / -360 Physical Exam Narrative: Patient is awake alert, no acute distress Neck supple S1-S2 regular rate and rhythm per report Clear to auscultation per report No pedal edema. Urinary Catheter Management: Reyes: Cath Placed During This Visit: yes Reason for Continuing Indwelling Catheter: Accurate Measurement of Urinary Output in Critically Ill Patients Urinary Catheter Date of Insertion: 11/29/22 Urinary Catheter Time of Insertion: 13:30 Data 12/05/22 02:54 12/05/22 02:54 Micro: Microbiology 11/29/22 10:08 Blood Culture - Final Blood NO GROWTH AFTER 5 DAYS 11/29/22 10:11 Blood Culture - Final Blood NO GROWTH AFTER 5 DAYS A&P Assessment and plan (1) 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: Plan 1. Acute on chronic kidney disease stage III: Patient's baseline creatinine is in the 2 range, presented with a 3.1 and worsened to 3.4 , now at 2.9, -s/p IV albumin, changed lasix to 40 mg po BID -Has 3+ urine protein, possible that patient has nephrotic syndrome that could be contributing to volume overload. -Place on 2 g sodium restriction and 1500 mL fluid restriction - Given CKD with DM , he has 20-30 % chance of developing ARJUN post procedure and 4-5 % chance of needing dialysis , C post pones and underwent stress test - results penidng - pt agreeble to initiate HD if indicated in near future -F/U with Nephrology as out pt 2. Hyponatremia: Mild, improved , 3. New onset CHF: NSTEMI, cardiology following 4. Diabetes type 2: Med management per primary team Patient evaluated using audiovisual cart. Time spent 45 minutes Attestations Medical Necessity Statement*: Plan for discharge in the next 24 to 30 hours Coding Level of Care Code Acute Code for g Fwd Diagnoses 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 E11.22
--- NOTE | 2022-12-05 18:32 | PM.PN ---
Subjective Subjective: The patient is feeling okay. He has not had any chest pain or unusual shortness of breath. Functional status seems to be improving. He is ambulating on telemetry. He had a Myocardial perfusion imaging today. He was found to have areas of fixed events with a very small areas of reversible defect, suggesting myocardial scarring with possible gurjit-infarction ischemia. Medications: Medication Review Details: Current Medications Acetaminophen (Acetaminophen 325 Mg Tablet) 650 mg PO Q6H PRN PRN Reason: Mild/Mod Pain Or Temp >/= 101 Last Admin: 12/02/22 13:44 Dose: 650 mg Albuterol/Ipratropium (Ipratropium-Albuterol 3 Ml Neb) 3 ml INHALATION Q6H.RESP PRN PRN Reason: SHORTNESS OF BREATH Aminophylline (Aminophylline 25 Mg/Ml Sdv 10 Ml) 25 mg IVP Q2M PRN PRN Reason: see dose instructions Stop: 12/06/22 07:35 Amlodipine Besylate (Amlodipine 10 Mg Tablet) 10 mg PO QAM [facility] Last Admin: 12/05/22 06:25 Dose: 10 mg Amoxicillin/Clavulanate Potassium (Amoxicillin-Clav 875-125 Mg Tablet) 1 tab PO BID [facility]; Protocol Last Admin: 12/05/22 18:07 Dose: 1 tab Aspirin (Aspirin 81 Mg Chew Tablet) 81 mg PO QAM [facility] Last Admin: 12/05/22 06:25 Dose: 81 mg Atorvastatin Calcium (Atorvastatin 40 Mg Tablet) 40 mg PO BEDTIME [facility] Last Admin: 12/04/22 20:45 Dose: 40 mg Clopidogrel Bisulfate (Clopidogrel 75 Mg Tablet) 75 mg PO DAILY [facility] Last Admin: 12/05/22 09:49 Dose: 75 mg Dextrose (Dextrose 50% Syringe 50 Ml) 25 ml IVP ONCE PRN; Protocol PRN Reason: hypoglycemia protocol Dextrose (Dextrose 50% Syringe 50 Ml) 50 ml IVP PRN PRN; Protocol PRN Reason: hypoglycemia protocol Doxycycline Monohydrate (Doxycycline 100 Mg Tablet) 100 mg PO BID [facility]; Protocol Last Admin: 12/05/22 18:07 Dose: 100 mg Furosemide (Furosemide 10 Mg/Ml Sdv 4ml) 40 mg IVP Q24H [facility] Last Admin: 12/05/22 13:12 Dose: 40 mg Gabapentin (Gabapentin 300 Mg Capsule) 300 mg PO BEDTIME [facility] Last Admin: 12/04/22 20:45 Dose: 300 mg Glucagon (Glucagon 1 Mg/Ml Inj 1 Ml) 1 mg IM ONCE PRN; Protocol PRN Reason: Adult Acute Hypoglycemia Prot. Heparin Sodium (Porcine) (Heparin 5,000 Unit/Ml Inj 1 Ml) 5,000 unit SUBCUT Q12H [facility] Last Admin: 12/05/22 13:11 Dose: 5,000 unit Dextrose (D5w) 500 mls @ 100 mls/hr IV ONCE PRN; Protocol PRN Reason: Adult Acute Hypoglycemia Prot Insulin Glargine (Insulin Glargine 100 Units/1 Ml) 40 unit SUBCUT BEDTIME [facility] Last Admin: 12/04/22 20:46 Dose: 40 unit Insulin Human Lispro (Insulin Lispro 100 Unit/1 Ml) 0 unit SUBCUT WM&BEDTIME [facility]; Protocol Last Admin: 12/05/22 17:22 Dose: Not Given Metoprolol Tartrate (Metoprolol Tartrate 50 Mg Tablet) 100 mg PO BID [facility] Last Admin: 12/05/22 09:49 Dose: 100 mg Nitroglycerin (Nitroglycerin 0.4 Mg Sublingual Tablet) 0.4 mg SUBLINGUAL Q5M PRN PRN Reason: CHEST PAIN Stop: 12/06/22 07:35 Ondansetron HCl (Ondansetron 2 Mg/Ml Sdv 2 Ml) 4 mg IVP Q8H PRN PRN Reason: vomiting, or N/V if npo Ondansetron HCl (Ondansetron 2 Mg/Ml Sdv 2 Ml) 4 mg IVP Q2M PRN PRN Reason: NAUSEA Pantoprazole Sodium (Pantoprazole 40 Mg Sdv) 40 mg IVP Q24H [facility] Last Admin: 12/05/22 13:11 Dose: 40 mg Vitals/I&O/Wt Last Vital Signs Temp 98.1 F 12/05/22 03:24 Pulse 66 12/05/22 17:00 Resp 17 12/05/22 17:00 BP 131/69 12/05/22 17:00 Pulse Ox 99 12/05/22 17:00 O2 Del Method 12/05/22 14:23 O2 Flow Rate 2.5 12/05/22 14:23 12/05/22 12/05/22 12/05/22 06:59 14:59 22:59 Intake Total 0 / 1048.533 240 / 240 Output Total 600 / 2800 600 / 600 Balance -600 / -1751.467 -360 / -360 Physical Exam Narrative: GENERAL: The patient is alert and oriented times three. Not in any acute distress. HEENT: No significant pallor, icterus or lymphadenopathy.Oral cavity: There are no mucous membrane lesions. NECK: Trachea appears to be central. No masses noted. No JVD or thyromegaly appreciated. RESPIRATORY: Breath sounds are heard bilaterally with slightly diminished intensity of breath sounds at the bases. Occasional coarse crackles. BREASTS: Deferred. HEART: The heart sounds are normal. No S3 or S4. No significant murmurs. No pericardial rub ABDOMEN: No vessel pulsations or distention. No tenderness. No organomegaly appreciated. Bowel sounds are normally heard. : Deferred. RECTAL: Deferred. LYMPHATIC: No lymphadenopathy noted in the neck. EXTREMITIES: 1+ edema bilaterally. MUSCULOSKELETAL: No acute joint deformities or swelling SKIN: There are no significant rashes or ecchymosis NEUROPSYCHIATRIC: The patient is alert and oriented x3. Appears to be in a good mood. No tremors or rigidity noted. Urinary Catheter Management: Reyes: Cath Placed During This Visit: yes Reason for Continuing Indwelling Catheter: Accurate Measurement of Urinary Output in Critically Ill Patients Urinary Catheter Date of Insertion: 11/29/22 Urinary Catheter Time of Insertion: 13:30 Data 12/05/22 02:54 12/05/22 02:54 Other Labs: Laboratory Last Values WBC 11.5 10^3/uL (4.0-10.0) H 12/05/22 02:54 RBC 4.06 10^6/uL (4.1-5.3) L 12/05/22 02:54 Hgb 10.9 g/dL (11.7-16.6) L 12/05/22 02:54 Hct 34.9 % (42.0-52.0) L 12/05/22 02:54 MCV 86.0 fl (80-94) 12/05/22 02:54 MCH 26.8 pg (28.0-34.0) L 12/05/22 02:54 MCHC 31.2 g/dL (30.0-36.0) 12/05/22 02:54 RDW 15.8 % (12.1-15.1) H 12/05/22 02:54 Plt Count 272 10^3/cmm (130-400) 12/05/22 02:54 MPV 13.0 fL (7.4-10.4) H 12/05/22 02:54 Neut % (Auto) 74.6 % 12/05/22 02:54 Lymph % (Auto) 8.4 % 12/05/22 02:54 Rincon % (Auto) 9.5 % 12/05/22 02:54 Eos % (Auto) 5.8 % 12/05/22 02:54 Baso % (Auto) 0.7 % 12/05/22 02:54 Neut # (Auto) 8.54 10^3/uL (1.8-7.7) H 12/05/22 02:54 Lymph # (Auto) 1.0 10^3/uL (0.8-4.8) 12/05/22 02:54 Rincon # (Auto) 1.1 10^3/uL (0.2-0.9) H 12/05/22 02:54 Eos # (Auto) 0.7 10^3/uL (0.0-0.8) 12/05/22 02:54 Baso # (Auto) 0.1 10^3/uL (0.0-0.1) 12/05/22 02:54 Nucleated RBC % (auto) 0 % 12/05/22 02:54 Nucleated RBCs # 0.0 /100WBC 12/05/22 02:54 APTT 67.2 SECONDS (23.9-36.7) H 12/04/22 12:50 Specimen Type Arterial 12/03/22 01:50 Sample Site Radial, right 12/03/22 01:50 ABG pH 7.31 (7.35-7.45) L 12/03/22 01:50 ABG pCO2 54.1 mmHg (35-45) H 12/03/22 01:50 ABG pO2 67.2 mmHg (80.0-100.0) L 12/03/22 01:50 ABG HCO3 27.5 mmol/L (22-26) H 12/03/22 01:50 ABG Base Excess 0.5 mmol/L (-2.0-2.0) 12/03/22 01:50 Pedro Test Pos 12/03/22 01:50 Hematocrit 33.5 % (42-52) L 12/03/22 01:50 Hgb O2 Saturation 90.3 % (95-100) L 11/29/22 09:50 Carboxyhemoglobin 1.6 %THgb (0.4-20.1) 11/29/22 09:50 Methemoglobin 0.5 % (0.4-1.5) 11/29/22 09:50 Total Hemoglobin 12.2 g/dL (14-18) L 11/29/22 09:50 O2 Delivery Device Oxy mask 12/03/22 01:50 O2 Liters/Min 9.0 % 12/03/22 01:50 [employer] Associate ID [email or web address] 12/03/22 01:50 Sodium 137 mmol/L (136-145) 12/05/22 02:54 Potassium 4.1 mmol/L (3.5-5.1) 12/05/22 02:54 Chloride 97 mmol/L (98-107) L 12/05/22 02:54 Carbon Dioxide 27 mmol/L (22-29) 12/05/22 02:54 Anion Gap 17.1 (5-19) 12/05/22 02:54 BUN 44 mg/dL (6-20) H 12/05/22 02:54 Creatinine 3.0 mg/dL (0.7-1.2) H 12/05/22 02:54 GFR Calculation 21.8 mL/min (90-130) L 12/05/22 02:54 Glucose 108 mg/dL (65-115) 12/05/22 02:54 POC Glucose 113 mg/dL (70-110) H 12/05/22 11:02 Estimat Average Glucose 203 11/29/22 09:28 Hemoglobin A1c 8.7 % (4.0-6.0) H 11/29/22 09:28 Calculated Osmolality 296 mOsm/kg (285-295) H 12/05/22 02:54 Lactic Acid 0.8 mmol/L (0.5-2.2) 11/29/22 10:08 Calcium 9.3 mg/dL (8.5-10.5) 12/05/22 02:54 Phosphorus 3.7 mg/dL (2.5-4.5) 12/01/22 05:14 Magnesium 1.7 mg/dL (1.7-2.3) 12/02/22 00:35 Total Bilirubin 0.4 mg/dL (0.15-1.2) 11/30/22 03:18 AST 27 U/L (0-40) 11/30/22 03:18 ALT 14 U/L (0-41) 11/30/22 03:18 Alkaline Phosphatase 202 U/L (40-130) H 11/30/22 03:18 Troponin T Baseline 442 ng/L (0-15) H* 11/29/22 10:00 Troponin T 120 Minute 415.2 ng/L (0-15) H 11/29/22 11:56 Delta Troponin T -26.8 ABS# (0-10) L 11/29/22 11:56 Troponin T Hi Sens 6Hr 421.0 ng/L (0-15) H 11/29/22 16:00 Troponin T Hi Sens 6Hr Delta -21.0 ng/L (0-12) L 11/29/22 16:00 NT-Pro-B Natriuret Pep 44259 pg/mL (0-125) H 11/29/22 10:08 Total Protein 5.8 g/dL (6.6-8.7) L D 11/30/22 03:18 Albumin 2.3 g/dL (3.5-5.2) L 11/30/22 03:18 Globulin 3.5 g/dL (1.3-4.6) 11/30/22 03:18 Triglycerides 103 mg/dL (0-150) 11/29/22 10:00 Cholesterol 142 mg/dL (0-200) 11/29/22 10:00 LDL Cholesterol, Calc 81 mg/dL (50-129) 11/29/22 10:00 HDL Cholesterol 40 mg/dL (60-100) L 11/29/22 10:00 LDL/HDL Ratio 2.03 RATIO (0.00-3.22) 11/29/22 10:00 Cholesterol/HDL Ratio 3.55 mg/dL (1.0-5.00) 11/29/22 10:00 Procalcitonin 0.13 ng/mL (0-0.5) 11/29/22 10:08 TSH 2.21 uIU/mL (0.27-4.20) 11/29/22 10:00 Coronavirus 229E (PCR) Not detected (NOT DETECT) 11/29/22 13:25 SARS-CoV-2 (PCR) Not detected (NOT DETECT) 11/29/22 13:25 Myocardial perfusion imaging: My impression: 1.? Myocardial perfusion imaging revealing moderate to large areas of ?persistent decreased tracer uptake in the anterior, anterolateral, inferior and ?apical segments with some subtle areas of reversibility in the anterolateral ?and inferior regions suggesting myocardial scarring in the distribution of all ?the 3 coronary arteries with some small areas of possible gurjit-infarction ?ischemia. ?2.? Normal LV ejection fraction of 56%. ?3.? LV wall motion analysis revealing mild diffuse hypokinesia of the septum ?and the LV apex. ?4.? Mildly dilated LV cavity, with an end-systolic volume of 56 ml. ?No similar previous studies are available for comparison A&P Assessment and plan (1) Acute diastolic heart failure: Clinically getting compensated. May continue on the current medications. (2) Elevated troponin: Patient seems to have a very low ischemic burden, based on the perfusion scan. At this point, it may be appropriate to continue the medical treatment. Because of his abnormal kidney function, he carries a high risk for contrast-induced nephropathy. This was discussed in detail with the patient. Patient understood this well. (3) Type 2 diabetes mellitus: Aggressive management of the diabetes would be appropriate (4) 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: At this point, due to the report hold off on the cardiac catheterization. If he has recurrent heart failure, may consider the procedure. (5) Hyperkalemia: Currently normokalemic. May continue on the current management Plan If the patient continues to remain stable, may be discharged home from a cardiac standpoint. May switch the IV Lasix to p.o. -as per nephrology. Continue the Plavix and baby aspirin, in addition to other medications Attestations Medical Necessity Statement*: Disposition as per the primary Coding Level of Care Code 93169 Diagnoses Acute diastolic heart failure I50.31 Elevated troponin R77.8 Type 2 diabetes mellitus E11.9 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 E11.22 Hyperkalemia E87.5
[2022-12-05 20:24] LABS: Glucose Point of Care 149 mg/dL (70-110)
[2022-12-05] MEDS: insulin glargine 100 units/1 mL 40 UNIT SUBCUT (20:56)
[2022-12-05] MEDS: insulin lispro 100 unit/1 mL SUBCUT (20:56)
[2022-12-05] MEDS: atorvastatin 40 mg Tablet PO (20:57)
[2022-12-05] MEDS: gabapentin 300 mg Capsule PO (20:57)
[2022-12-06] VITALS (9 sets, daily range): BP systolic 129–147; BP diastolic 64–93; PULSE 60–76; RESP 15–21; TEMP 36.6–37.3; O2SAT 87–96
[2022-12-06] MEDS: heparin 5,000 unit/mL INJ 1 mL 5000 UNIT SUBCUT (02:55)
[2022-12-06] MEDS: aspirin 81 mg Chew Tablet PO (05:21)
[2022-12-06] MEDS: amlodipine 10 mg Tablet PO (05:21)
[2022-12-06 06:41] LABS: Glucose Point of Care 79 mg/dL (70-110)
--- NOTE | 2022-12-06 07:44 | P.PN_ITS ---
Subjective Subjective: Patient seen bedside this morning, nursing staff of been performing twice daily dressing changes. He reports improvement, has been wearing his Juzo's, PODUS boot for offloading of the left heel was dispensed by [facility]. Patient is anticipating discharge home in the next day or 2. Vitals/I&O/Wt Last Vital Signs Temp 98.5 F 12/06/22 04:00 Pulse 71 12/06/22 07:31 Resp 17 12/06/22 07:31 BP 129/64 12/06/22 04:00 Pulse Ox 96 12/06/22 07:31 O2 Del Method 12/06/22 07:31 O2 Flow Rate 3 12/06/22 07:31 12/05/22 12/06/22 12/06/22 22:59 06:59 14:59 Intake Total 120 / 360 Output Total 675 / 1275 Balance 120 / -240 -675 / -915 Physical Exam Narrative: GENERAL: Patient is alert and oriented ?3 and in no acute distress. The following is a focused bilateral lower extremity exam. VASCULAR: Dorsalis pedis palpable +2 left and right foot. Posterior tibial arteries +2. Capillary refill time less than 3 seconds to the distal hallux bilaterally. Calf is supple and nontender proximally and distally. Decreased pedal hair growth bilaterally. Pitting edema to the bilateral lower extremity. NEUROLOGICAL: Protective sensation intact 0/10 sites, tested with Billings Esdras monofilament to bilateral feet. DERMATOLOGICAL: Lower extremity integument is thin and atrophic has decreased texture, has atrophic shiny appearance. He has a wound to the left heel that measures 6.2 cm x 4.4 cm x 0.4 cm with serous drainage, there is no purulence and there is no periwound erythema, wound is exposed to myofascial layer, does not probe to bone wound base is 60% granular and 40% fibrotic. Wound Sub fifth metatarsal head to the right foot measures 0.8 cm x 0.7 cm x 0.3 cm with a largely granular base and epithelialized margin has no purulent drainage and no periwound erythema, does not track, tunnel or undermine, wound base is 90% granular and 10% fibrotic with epithelialized margin. Hyperkeratosis subfourth metatarsal head of the left foot without hemorrhaging or underlying wound. Dystrophic toenails 1, 2, 3, 4, 5 left and right foot. MUSCULOSKELETAL: Increased dorsiflexion and hypermobility at the left ankle joint in the sagittal plane. Able to obtain 15 degrees of dorsiflexion. Digital deformities of digits 1, 2, 3, 4, 5 left and right foot that are reducible. Pes planus foot type bilaterally. No crepitus with palpation of soft tissue adjacent to bilateral foot wound noted above. Urinary Catheter Management: Reyes: Cath Placed During This Visit: yes Reason for Continuing Indwelling Catheter: Accurate Measurement of Urinary Output in Critically Ill Patients Urinary Catheter Date of Insertion: 11/29/22 Urinary Catheter Time of Insertion: 13:30 Data 12/05/22 02:54 12/05/22 02:54 Other data: Ordering Provider/Ordering MD: Tsering Mary MD Date of Service: 12/03/22 Procedure(s): MR foot RT wo con* [id number] Accession Number(s): [id number] Report Number: [id number] WS: [id number] MRI RIGHT FOOT without CONTRAST. COMPARISON: 10/10/2018., Radiograph 11/02/2022. Multiplanar, multisequence imaging is performed without contrast. Abnormal configuration of the distal fifth metatarsal. There is loss of the normal distal metatarsal diaphysis with a small amount of edema and penciling of the distal metatarsal. Edema is present within the metatarsal head and proximal fifth phalanx. Erosive changes and loss of the normal contour of the second, third and fourth metatarsal heads. These changes were recently described radiographically. There is only is a small amount of edema within the expected location of the metatarsal heads. These are probably chronic erosive or post osteomyelitis changes. Mild hallux valgus deformity. There is a soft tissue ulceration measuring 2.6 cm along the plantar surface of the foot at the level of the second metatarsal head. No acute edema. There is fibrotic. No soft tissue fluid collections. There is a small amount of edema along the lateral distal foot. MR/MR foot RT wo con* [id number] IMPRESSION: ? 1.? Marrow edema suggest an acute process involving the fifth metatarsal head and proximal phalanx. Suspicious for osteomyelitis. 2.? Additional erosive changes and abnormal configuration of the second through fourth metatarsal heads with only very minimal if any edema. These are probably chronic areas of osteomyelitis or posttraumatic changes. 3.? Focal 2.6 cm ulcer along the plantar surface of the foot at the level of the second metatarsal head. No increased T2 signal. 4.? Mild cellulitis over the lateral distal fifth metatarsal and toe. ? Dictated By: Linda Posey DO A&P Assessment and plan (1) Diabetic peripheral neuropathy associated with type 2 diabetes mellitus: (2) 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: (3) Chronic ulcer of right foot with fat layer exposed: (4) PVD (peripheral vascular disease): (5) CKD (chronic kidney disease): Plan Tim Robison is a 57 year old male Admitted to the hospital service for acute diastolic heart failure. Labs showed elevated troponins, EKG demonstrated non- ST elevation LA. Looks like he is a candidate for catheterization at some point down the road will require collaboration with nephrology. I was consulted for evaluation of bilateral diabetic foot wounds. Patient reports a long history of a wound to the left heel has been present for years. He states that healed 1 time and then quickly rhe ulcerated. He noticed increased drainage about a month ago from the left heel. Is taking ciprofloxacin and denies any redness or purulent drainage. He also has a wound at the right foot. He ambulates with removable cast boot left and right. He typically wears lymphedema wraps during the day. The frequency of dressing changes has been challenging. Given the increased drainage he would benefit from twice daily dressing changes however home health is only set up to come 3X weekly and friend/family have had difficulty providing twice daily dressing changes. Patient is established at the wound care clinic and is actively being treated for both wounds prior to this hospitalization. Clinical and laboratory findings -No leukocytosis, patient is afebrile, no constitutional symptoms of sepsis -Hemoglobin A1c 8.7% -Erosive changes at right metatarsal phalangeal joint seen on x-ray are consistent with psoriatic arthritis, MRI pending. Low suspicion for osteomyelitis. No plans for surgical intervention during this hospitalization -Left foot x-ray shows chronic osteomyelitis of the left calcaneus. Wound is stable without acute signs of infection. No plans for surgical intervention during this hospitalization. Could form an outpatient plan with collaborative multidisciplinary approach to address chronic osteomyelitis of the left calcaneus would require infectious disease recommendations, partial calcanectomy and potential musculocutaneous flap would need to weigh out risks versus benefits of this type of procedure and can be managed outpatient. Interim update 12/06/2022 Left heel wound Significant improvement with increased granulation tissue to the left heel during this hospitalization with twice daily dressing changes, lymphedema wraps and PODUS boot for offloading, wound bed is now 60% granular and 40% fibrotic, this is significantly improved compared to 3 days ago where his wound was 1% fibrotic and heavily macerated at the margins. Significant improvement in the amount of serous drainage at the left heel wound, he is no longer saturating his wound and maceration is resolving. Right foot wound Sub fifth metatarsal head. Significant improvement to the right forefoot wound Sub fifth metatarsal head, has 90% granular base and epithelialized margin without clinical signs of infection, no deep structures exposed. In regards to the MRI of the right foot, patient has radiographic findings that are classic for psoriatic arthritis with pencil in cup erosive pattern at the metatarsal phalangeal joint mostly involving the fifth metatarsal phalangeal joint and to a lesser degree metatarsal phalangeal joints 2, 3 and 4. Have a much lower suspicion of infectious process at the metatarsal heads that were read on MRI as potential osteomyelitis, in my opinion this is psoriatic arthritis and these changes are reactive. His clinical picture does not match the MRI read. His right foot does not show any clinical signs of infection, there is no erythema, no purulent drainage, wound does not track, probe or undermine or extend near bone, during this hospitalization his right foot wound has continued to improve with increased granulation and overall healthier appearance. Both wounds are demonstrating potential for healing, will require continued aggressive wound care regimen and offloading regimen. Edema control, infection control and offloading have been optimal during this hospitalization and this has resulted in significant interval of healing, we will hope that this can be c ontinued outpatient while he is at home with a combination of his family that are assisting with dressing changes, home health aide and wound care clinic follow-up. Recommendations to be continued during this hospitalization: Continue antibiotics as prescribed, no acute signs of infection. PODUS boot to be dispensed by [facility] tomorrow for offloading of the left heel wound while in bed. Twice daily dressing change Hydrofera Blue primary dressing followed by ABD pad, Kerlix and Lobo wrap to the left heel wound. Twice daily dressing change of Hydrofera Blue followed by island dressing to the right plantar forefoot wound. Juzo lymphedema wraps bilateral lower extremity to be used at this time, to be taken down for twice daily dressing changes and skin inspection. Otherwise to be worn at all times during this hospitalization. There are no leg wounds at this time. Podiatry will follow during this hospitalization, recommend continued wound care clinic which he is already established with for outpatient follow-up once discharged. Patient okay for discharge from podiatry standpoint in regards to his left and right foot wounds, these are stable for discharge with wound care follow-up, no plans for surgical intervention during this hospitalization at this time. Attestations Medical Necessity Statement*: Diabetic foot ulcer left and right Coding Level of Care Code Acute Code for [facility] Diagnoses Diabetic peripheral neuropathy associated with type 2 diabetes mellitus E11.42 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 L97.423 Chronic ulcer of right foot with fat layer exposed L97.512 PVD (peripheral vascular disease) I73.9 CKD (chronic kidney disease) N18.9
[2022-12-06 08:09] LABS: Basophils # 0.1 10^3/uL (0.0-0.1); Basophils % 0.8 %; Eosinophils # 1.1 10^3/uL (0.0-0.8); Eosinophils % 9.9 %; Hematocrit 36.9 % (42.0-52.0); Hemoglobin 11.8 g/dL (11.7-16.6); Lymphocytes # 1.2 10^3/uL (0.8-4.8); Lymphocytes % 10.3 %; Mean Corpuscular Hemoglobin 27.2 pg (28.0-34.0); Monocytes % 8.5 %; Neutrophils % 69.5 %; Nucleated Red Blood Cells % 0 %; Platelet Count 297 10^3/cmm (130-400); Red Blood Count 4.34 10^6/uL (4.1-5.3); Red Cell Distribution Width 15.6 % (12.1-15.1); White Blood Count 11.5 10^3/uL (4.0-10.0)
[2022-12-06 08:11] LABS: Blood Urea Nitrogen 45 mg/dL (6-20); Carbon Dioxide 25 mmol/L (22-29); Chloride 97 mmol/L (98-107); Glomerular Filtration Rate 21.8 mL/min (90-130); Glucose 108 mg/dL (65-115); Osmolality Calculated 296 mOsm/kg (285-295); Sodium 137 mmol/L (136-145)
[2022-12-06 08:12] LABS: Anion Gap 19.6 (5-19); Potassium 4.6 mmol/L (3.5-5.1)
--- NOTE | 2022-12-06 08:43 | PC.SOCIAL ---
IMM Update Pg. 2 of IMM updated and reviewed with patient, who verbalized understanding. Copy provided to patient, and copy placed in chart.
--- NOTE | 2022-12-06 09:41 | PM.DCS ---
Discharge Providers Date of Admission: 11/29/22 12:40 Date of Discharge: December 06, 2022 Attending Provider at Admission: Tsering Mary MD Attending Provider at Discharge: Abisai Maddox MD Primary Care Provider: SERAFIN Reza Diagnoses at Discharge Discharge Diagnosis (1) Diabetic peripheral neuropathy associated with type 2 diabetes mellitus: Status: Acute (2) 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: Status: Acute (3) Chronic ulcer of right foot with fat layer exposed: Status: Acute (4) PVD (peripheral vascular disease): Status: Acute (5) CKD (chronic kidney disease): Status: Acute Reason for Visit Reason for Visit: shortness of breath Hospital Course Hospital Course 57-year-old male with history of noncompliance, diabetic foot ulcer, type 2 diabetes, peripheral neuropathy, chronic osteomyelitis, follows at wound care clinic presented to the hospital with shortness of breath. In the hospital he was diagnosed with diastolic CHF exacerbation and NSTEMI. He was put on ACS protocol, secondary to chronic kidney disease I discussed case with director of business applications and financial planning consultant to get cardiac stress test before proceeding with angiogram. It is showing gurjit-infarct ischemia with scarring, Dr. Love has recommended outpatient follow-up with addition of Imdur aspirin and Plavix. I have optimized his antihypertensive regimen. Secondary worsening of creatinine I have decreased the dose of Lantus, I would also change the dose of ciprofloxacin to 500 mg once daily instead of twice a day for chronic osteomyelitis, he was seen by Dr. Allen and director of business applications during hospitalization. His baseline creatinine seems to be around 2.5-2.6. He has outpatient director of business applications. Please review Dr. Allen's consultation note for further details but in short he recommended continuation of antibiotics for chronic osteomyelitis patient has cam boot and he has recommended Podus boot, daily dressing change Hydrofera Blue primary dressing followed by ABD Kerlix and Lobo wraps to left heel.Twice daily dressing change of Hydrofera Blue followed by island dressing to the right plantar forefoot wound. Juzo lymphedema wraps bilateral lower extremity to be used at this time, to be taken down for twice daily dressing changes and skin inspection. Patient will need collaborative outpatient multidisciplinary approach to address chronic osteomyelitis including orthopedics, wound care/ID and Dr. Allen. Patient is stating that he has been living like this for last 6 years he even drives with 2 cam boots, removable cast, he has managed to learn to live with his multiple comorbid conditions and he is not in need of any SNF for now. Be discharged home with a referral to see Shantell Jones, wound care clinic and Dr. Allen He does have home health set up who would visit 3 times weekly but he needs daily dressing change for which he would need wound care clinic frequent visits. Will need 2 L oxygen at baseline, he was using oxygen 1 year ago, requested home O2 eval Physical Exam Narrative: Currently on 2 L nasal cannula Hemodynamically stable Clinical signs of fluid overload improving Legs with foul-smelling odor patient is wearing Podus boots Abdomen soft Hemodynamically stable Pleasant and cooperative GCS 15 Nonfocal neuro exam Urinary Catheter Management: Reyes: Cath Placed During This Visit: yes Reason for Continuing Indwelling Catheter: Accurate Measurement of Urinary Output in Critically Ill Patients Urinary Catheter Date of Insertion: 11/29/22 Urinary Catheter Time of Insertion: 13:30 Discharge Data Studies Completed and Pending Completed Studies During Hospitalization Category Date Time Status Sestamibi Stress Test Request Routine Exams 12/05/22 07:36 Draft XR chest 1V portable [id number] Stat Exams 11/29/22 09:26 Completed XR chest 1V portable [id number] Stat Exams 12/03/22 07:43 Completed XR foot LT min 3V* [id number] Routine Exams 12/02/22 08:42 Completed MR foot RT wo con* [id number] Routine MRI 12/03/22 09:30 Completed NM joseph perf SPECT r/s* [id number] Routine Nuc Med 12/05/22 13:52 Completed CV. echo limited [id number] Stat Ultrasound 11/29/22 12:37 Completed Pending at discharge Category Date Time Status Sestamibi Stress Test Request Routine Exams 12/04/22 13:52 Stop Req Radiology Impressions Foot X-Ray 12/02/22 08:42 IMPRESSION: Sclerosis in the calcaneus along the posterior margin. If concerned for osteomyelitis recommend MRI. Chest X-Ray 12/03/22 07:43 IMPRESSION: Interstitial pulmonary edema with increased right basilar airspace opacity, which may reflect aspiration or pneumonia. Foot MRI 12/03/22 09:30 IMPRESSION: 1. Marrow edema suggest an acute process involving the fifth metatarsal head and proximal phalanx. Suspicious for osteomyelitis. 2. Additional erosive changes and abnormal configuration of the second through fourth metatarsal heads with only very minimal if any edema. These are probably chronic areas of osteomyelitis or posttraumatic changes. 3. Focal 2.6 cm ulcer along the plantar surface of the foot at the level of the second metatarsal head. No increased T2 signal. 4. Mild cellulitis over the lateral distal fifth metatarsal and toe. Laboratory Results WBC 11.5 10^3/uL (4.0-10.0) H 12/06/22 07:36 RBC 4.34 10^6/uL (4.1-5.3) 12/06/22 07:36 Hgb 11.8 g/dL (11.7-16.6) 12/06/22 07:36 Hct 36.9 % (42.0-52.0) L 12/06/22 07:36 MCV 85.0 fl (80-94) 12/06/22 07:36 MCH 27.2 pg (28.0-34.0) L 12/06/22 07:36 MCHC 32.0 g/dL (30.0-36.0) 12/06/22 07:36 RDW 15.6 % (12.1-15.1) H 12/06/22 07:36 Plt Count 297 10^3/cmm (130-400) 12/06/22 07:36 MPV 13.0 fL (7.4-10.4) H 12/06/22 07:36 Neut % (Auto) 69.5 % 12/06/22 07:36 Lymph % (Auto) 10.3 % 12/06/22 07:36 Nobles % (Auto) 8.5 % 12/06/22 07:36 Eos % (Auto) 9.9 % 12/06/22 07:36 Baso % (Auto) 0.8 % 12/06/22 07:36 Neut # (Auto) 8.00 10^3/uL (1.8-7.7) H 12/06/22 07:36 Lymph # (Auto) 1.2 10^3/uL (0.8-4.8) 12/06/22 07:36 Nobles # (Auto) 1.0 10^3/uL (0.2-0.9) H 12/06/22 07:36 Eos # (Auto) 1.1 10^3/uL (0.0-0.8) H 12/06/22 07:36 Baso # (Auto) 0.1 10^3/uL (0.0-0.1) 12/06/22 07:36 Nucleated RBC % (auto) 0 % 12/06/22 07:36 Nucleated RBCs # 0.0 /100WBC 12/06/22 07:36 APTT 67.2 SECONDS (23.9-36.7) H 12/04/22 12:50 Specimen Type Arterial 12/03/22 01:50 Sample Site Radial, right 12/03/22 01:50 ABG pH 7.31 (7.35-7.45) L 12/03/22 01:50 ABG pCO2 54.1 mmHg (35-45) H 12/03/22 01:50 ABG pO2 67.2 mmHg (80.0-100.0) L 12/03/22 01:50 ABG HCO3 27.5 mmol/L (22-26) H 12/03/22 01:50 ABG Base Excess 0.5 mmol/L (-2.0-2.0) 12/03/22 01:50 Pedro Test Pos 12/03/22 01:50 Hematocrit 33.5 % (42-52) L 12/03/22 01:50 Hgb O2 Saturation 90.3 % (95-100) L 11/29/22 09:50 Carboxyhemoglobin 1.6 %THgb (0.4-20.1) 11/29/22 09:50 Methemoglobin 0.5 % (0.4-1.5) 11/29/22 09:50 Total Hemoglobin 12.2 g/dL (14-18) L 11/29/22 09:50 O2 Delivery Device Oxy mask 12/03/22 01:50 O2 Liters/Min 9.0 % 12/03/22 01:50 Senior Java Data Architect ID [email or web address] 12/03/22 01:50 Sodium 137 mmol/L (136-145) 12/06/22 07:36 Potassium 4.6 mmol/L (3.5-5.1) 12/06/22 07:36 Chloride 97 mmol/L (98-107) L 12/06/22 07:36 Carbon Dioxide 25 mmol/L (22-29) 12/06/22 07:36 Anion Gap 19.6 (5-19) H 12/06/22 07:36 BUN 45 mg/dL (6-20) H 12/06/22 07:36 Creatinine 3.0 mg/dL (0.7-1.2) H 12/06/22 07:36 GFR Calculation 21.8 mL/min (90-130) L 12/06/22 07:36 Glucose 108 mg/dL (65-115) 12/06/22 07:36 POC Glucose 79 mg/dL (70-110) 12/06/22 06:35 Estimat Average Glucose 203 11/29/22 09:28 Hemoglobin A1c 8.7 % (4.0-6.0) H 11/29/22 09:28 Calculated Osmolality 296 mOsm/kg (285-295) H 12/06/22 07:36 Lactic Acid 0.8 mmol/L (0.5-2.2) 11/29/22 10:08 Calcium 9.0 mg/dL (8.5-10.5) 12/06/22 07:36 Phosphorus 3.7 mg/dL (2.5-4.5) 12/01/22 05:14 Magnesium 1.7 mg/dL (1.7-2.3) 12/02/22 00:35 Total Bilirubin 0.4 mg/dL (0.15-1.2) 11/30/22 03:18 AST 27 U/L (0-40) 11/30/22 03:18 ALT 14 U/L (0-41) 11/30/22 03:18 Alkaline Phosphatase 202 U/L (40-130) H 11/30/22 03:18 Troponin T Baseline 442 ng/L (0-15) H* 11/29/22 10:00 Troponin T 120 Minute 415.2 ng/L (0-15) H 11/29/22 11:56 Delta Troponin T -26.8 ABS# (0-10) L 11/29/22 11:56 Troponin T Hi Sens 6Hr 421.0 ng/L (0-15) H 11/29/22 16:00 Troponin T Hi Sens 6Hr Delta -21.0 ng/L (0-12) L 11/29/22 16:00 NT-Pro-B Natriuret Pep 17993 pg/mL (0-125) H 11/29/22 10:08 Total Protein 5.8 g/dL (6.6-8.7) L D 11/30/22 03:18 Albumin 2.3 g/dL (3.5-5.2) L 11/30/22 03:18 Globulin 3.5 g/dL (1.3-4.6) 11/30/22 03:18 Triglycerides 103 mg/dL (0-150) 11/29/22 10:00 Cholesterol 142 mg/dL (0-200) 11/29/22 10:00 LDL Cholesterol, Calc 81 mg/dL (50-129) 11/29/22 10:00 HDL Cholesterol 40 mg/dL (60-100) L 11/29/22 10:00 LDL/HDL Ratio 2.03 RATIO (0.00-3.22) 11/29/22 10:00 Cholesterol/HDL Ratio 3.55 mg/dL (1.0-5.00) 11/29/22 10:00 Procalcitonin 0.13 ng/mL (0-0.5) 11/29/22 10:08 TSH 2.21 uIU/mL (0.27-4.20) 11/29/22 10:00 Coronavirus 229E (PCR) Not detected (NOT DETECT) 11/29/22 13:25 SARS-CoV-2 (PCR) Not detected (NOT DETECT) 11/29/22 13:25 Vitals Last Vital Signs Temp 97.9 F 12/06/22 08:00 Pulse 76 12/06/22 08:00 Resp 21 H 12/06/22 08:00 BP 145/93 12/06/22 08:00 Pulse Ox 95 12/06/22 08:00 O2 Del Method 12/06/22 08:00 O2 Flow Rate 3 12/06/22 07:31 Discharge Plan Discharge Patient Disposition: Home Condition: Stable Prescriptions: New isosorbide mononitrate 30 mg tablet extended release 24 hr 30 mg PO DAILY Qty: 60 1RF ciprofloxacin HCl 500 mg tablet 500 mg PO DAILY Qty: 60 0RF Rx Instructions: Only once a day because of chronic kidney hydralazine 10 mg tablet 10 mg PO BID Qty: 60 0RF clopidogrel [Plavix] 75 mg tablet 75 mg PO DAILY Qty: 60 1RF furosemide [Lasix] 20 mg tablet 20 mg PO DAILY Qty: 30 2RF Continued amlodipine 10 mg tablet 10 mg PO QAM gabapentin 300 mg capsule 300 mg PO BEDTIME (DME) Dexcom G6 Sensor Device See Rx Instructions .Route Qty: 9 3RF Rx Instructions: As directed (DME) Dexcom G6 Time Study Technician Misc See Rx Instructions .Route Qty: 1 0RF Rx Instructions: As directed (DME) Dexcom G6 Transmitter Device See Rx Instructions .Route Qty: 3 3RF Rx Instructions: As directed (DME) Podus Boot to the Left See Rx Instructions .Route .MEDSUPPLY Qty: 1 0RF Rx Instructions: As directed J P & O- Patient is in Hospital Cardiac Stepdown Unit room 105-1 cyanocobalamin (vitamin B-12) 1,000 mcg/mL Solution 1,000 mcg IM Q30D insulin lispro [Humalog KwikPen Insulin] 100 unit/mL insulin pen See Rx Instructions .ROUTE .COMPLEX Qty: 0 0RF Rx Instructions: 5 units qam, 7 units at noon and 5 units pm fluticasone propion-salmeterol [Advair Diskus] 100-50 mcg/dose blister with device 1 inh inhalation BID Qty: 60 0RF omeprazole 40 mg capsule,delayed release(DR/EC) 40 mg PO DAILY atorvastatin 40 mg tablet 40 mg PO BEDTIME metoprolol tartrate 100 mg tablet 100 mg PO BID albuterol sulfate 90 mcg/actuation HFA aerosol inhaler 1 puff inhalation Q6H PRN (Reason: shortness of breath or wheezing) Lyrica 200 mg capsule 200 mg PO TID famotidine 20 mg tablet 20 mg PO BID aspirin 81 mg Tablet,Chewable 81 mg PO QAM Qty: 60 0RF Changed Levemir FlexTouch U-100 Insuln 100 unit/mL (3 mL) insulin pen 40 unit SUBCUT BEDTIME Qty: 15 0RF Discontinued ciprofloxacin HCl 500 mg tablet 500 mg PO BID Qty: 42 0RF Rx Instructions: rx filled 11/12/22 21d/s Discharge Orders: Discharge Order (Routine); Ordered 12/06/22 Ordered By: Abisai Maddox Referrals: Vidhi Gillette FNP [Primary Care Provider] - Neymar Allen DPM [Physician] - 7-10 days Shantell Jones FNP [Nurse Practitioner] - 2 weeks Discharge Diet: Cardiac Patient Instructions: Opioid Safety Discharge Attestations Time Spent in Discharge Care*: less than 30 min Quality Metrics Clinical Quality Measures [ No reported AMI, CVA or VTE this stay] Coding Level of Care Code Acute Code for Chg Fwd Diagnoses Diabetic peripheral neuropathy associated with type 2 diabetes mellitus E11.42 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 L97.423 Chronic ulcer of right foot with fat layer exposed L97.512 PVD (peripheral vascular disease) I73.9 CKD (chronic kidney disease) N18.9
[2022-12-06] MEDS: doxycycline 100 mg Tablet PO (09:44)
[2022-12-06] MEDS: amoxicillin-clav 875-125 mg Tablet 1 TAB PO (09:44)
[2022-12-06] MEDS: metoprolol tartrate 50 mg Tablet 100 MG PO (09:44)
[2022-12-06] MEDS: clopidogrel 75 mg Tablet PO (09:44)
[2022-12-06 11:42] LABS: Glucose Point of Care 193 mg/dL (70-110)
[2022-12-06] MEDS: insulin lispro 100 unit/1 mL SUBCUT (11:45)
--- NOTE | 2022-12-06 13:01 | P.PN_ITS ---
Subjective Subjective: Patient is feeling okay. No chest pain or shortness of breath. Medications: Medication Review Details: Current Medications Acetaminophen (Acetaminophen 325 Mg Tablet) 650 mg PO Q6H PRN PRN Reason: Mild/Mod Pain Or Temp >/= 101 Last Admin: 12/02/22 13:44 Dose: 650 mg Albuterol/Ipratropium (Ipratropium-Albuterol 3 Ml Neb) 3 ml INHALATION Q6H.RESP PRN PRN Reason: SHORTNESS OF BREATH Amlodipine Besylate ([facility] 10 Mg Tablet) [facility] Last Admin: 12/06/22 05:21 Dose: 10 mg Amoxicillin/Clavulanate Potassium (Amoxicillin-Clav 875-125 Mg Tablet) 1 tab PO BID [facility]; Protocol Last Admin: 12/06/22 09:44 Dose: 1 tab Aspirin (Aspirin 81 Mg Chew Tablet) [facility] Last Admin: 12/06/22 05:21 Dose: 81 mg Atorvastatin Calcium (Atorvastatin 40 Mg Tablet) 40 mg PO BEDTIME [facility] Last Admin: 12/05/22 20:57 Dose: 40 mg Clopidogrel Bisulfate (Clopidogrel 75 Mg Tablet) 75 mg PO DAILY [facility] Last Admin: 12/06/22 09:44 Dose: 75 mg Dextrose (Dextrose 50% Syringe 50 Ml) 25 ml IVP ONCE PRN; Protocol PRN Reason: hypoglycemia protocol Dextrose (Dextrose 50% Syringe 50 Ml) 50 ml IVP PRN PRN; Protocol PRN Reason: hypoglycemia protocol Doxycycline Monohydrate (Doxycycline 100 Mg Tablet) 100 mg PO BID [facility]; Protocol Last Admin: 12/06/22 09:44 Dose: 100 mg Furosemide (Furosemide 10 Mg/Ml Sdv 4ml) 40 mg IVP Q24H [facility] Last Admin: 12/05/22 13:12 Dose: 40 mg Gabapentin (Gabapentin 300 Mg Capsule) 300 mg PO BEDTIME [facility] Last Admin: 12/05/22 20:57 Dose: 300 mg Glucagon (Glucagon 1 Mg/Ml Inj 1 Ml) 1 mg IM ONCE PRN; Protocol PRN Reason: Adult Acute Hypoglycemia Prot. Heparin Sodium (Porcine) (Heparin 5,000 Unit/Ml Inj 1 Ml) 5,000 unit SUBCUT Q12H [facility] Last Admin: 12/06/22 02:55 Dose: 5,000 unit Dextrose (D5w) 500 mls @ 100 mls/hr IV ONCE PRN; Protocol PRN Reason: Adult Acute Hypoglycemia Prot Insulin Glargine (Insulin Glargine 100 Units/1 Ml) 40 unit SUBCUT BEDTIME [facility] Last Admin: 12/05/22 20:56 Dose: 40 unit Insulin Human Lispro (Insulin Lispro 100 Unit/1 Ml) 0 unit SUBCUT WM&BEDTIME [facility]; Protocol Last Admin: 12/06/22 11:45 Dose: 6 unit Metoprolol Tartrate (Metoprolol Tartrate 50 Mg Tablet) 100 mg PO BID [facility] Last Admin: 12/06/22 09:44 Dose: 100 mg Ondansetron HCl (Ondansetron 2 Mg/Ml Sdv 2 Ml) 4 mg IVP Q8H PRN PRN Reason: vomiting, or N/V if npo Ondansetron HCl (Ondansetron 2 Mg/Ml Sdv 2 Ml) 4 mg IVP Q2M PRN PRN Reason: NAUSEA Pantoprazole Sodium (Pantoprazole 40 Mg Sdv) 40 mg IVP Q24H [facility] Last Admin: 12/05/22 13:11 Dose: 40 mg Vitals/I&O/Wt Last Vital Signs Temp 97.9 F 12/06/22 12:34 Pulse 76 12/06/22 12:34 Resp 21 H 12/06/22 12:34 BP 145/93 12/06/22 12:34 Pulse Ox 87 L 12/06/22 12:50 O2 Del Method 12/06/22 12:00 O2 Flow Rate 2 12/06/22 12:50 12/05/22 12/06/22 12/06/22 22:59 06:59 14:59 Intake Total 120 / 360 240 / 240 Output Total 675 / 1275 450 / 450 Balance 120 / -240 -675 / -915 -210 / -210 Physical Exam Narrative: GENERAL: The patient is alert and oriented times three. Not in any acute distress. [] HEENT: No significant pallor, icterus or lymphadenopathy.Oral cavity: There are no mucous membrane lesions. NECK: Trachea appears to be central. No masses noted. No JVD or thyromegaly appreciated. RESPIRATORY: Chest is symmetrical. No intercostals muscle retraction or any accessory muscle activation. There is no chest wall tenderness. Breath sounds are heard bilaterally. No rales or rhonchi heard. No evidence of any consolidation. [] BREASTS: Deferred. HEART: The heart sounds are normal. No S3 or S4. No significant murmurs. No pericardial rub ABDOMEN: No vessel pulsations or distention. No tenderness. No organomegaly appreciated. Bowel sounds are normally heard. : Deferred. RECTAL: Deferred. LYMPHATIC: No lymphadenopathy noted in the neck. EXTREMITIES: Chronic edema 1+ MUSCULOSKELETAL: No acute joint deformities or swelling SKIN: There are no significant rashes or ecchymosis NEUROPSYCHIATRIC: The patient is alert and oriented x3. Appears to be in a good mood. No tremors or rigidity noted. Urinary Catheter Management: Reyes: Cath Placed During This Visit: yes, but has since been removed by the nurse Reason for Continuing Indwelling Catheter: Acute Urinary Retention or Obstruction Urinary Catheter Date of Insertion: 11/29/22 Urinary Catheter Time of Insertion: 13:30 Date Urinary Catheter Removed: 12/06/22 Time Urinary Catheter Discontinued: 11:27 Data 12/06/22 07:36 12/06/22 07:36 Micro: Laboratory Last Values WBC 11.5 10^3/uL (4.0-10.0) H 12/06/22 07:36 RBC 4.34 10^6/uL (4.1-5.3) 12/06/22 07:36 Hgb 11.8 g/dL (11.7-16.6) 12/06/22 07:36 Hct 36.9 % (42.0-52.0) L 12/06/22 07:36 MCV 85.0 fl (80-94) 12/06/22 07:36 MCH 27.2 pg (28.0-34.0) L 12/06/22 07:36 MCHC 32.0 g/dL (30.0-36.0) 12/06/22 07:36 RDW 15.6 % (12.1-15.1) H 12/06/22 07:36 Plt Count 297 10^3/cmm (130-400) 12/06/22 07:36 MPV 13.0 fL (7.4-10.4) H 12/06/22 07:36 Neut % (Auto) 69.5 % 12/06/22 07:36 Lymph % (Auto) 10.3 % 12/06/22 07:36 Clare % (Auto) 8.5 % 12/06/22 07:36 Eos % (Auto) 9.9 % 12/06/22 07:36 Baso % (Auto) 0.8 % 12/06/22 07:36 Neut # (Auto) 8.00 10^3/uL (1.8-7.7) H 12/06/22 07:36 Lymph # (Auto) 1.2 10^3/uL (0.8-4.8) 12/06/22 07:36 Clare # (Auto) 1.0 10^3/uL (0.2-0.9) H 12/06/22 07:36 Eos # (Auto) 1.1 10^3/uL (0.0-0.8) H 12/06/22 07:36 Baso # (Auto) 0.1 10^3/uL (0.0-0.1) 12/06/22 07:36 Nucleated RBC % (auto) 0 % 12/06/22 07:36 Nucleated RBCs # 0.0 /100WBC 12/06/22 07:36 APTT 67.2 SECONDS (23.9-36.7) H 12/04/22 12:50 Specimen Type Arterial 12/03/22 01:50 Sample Site Radial, right 12/03/22 01:50 ABG pH 7.31 (7.35-7.45) L 12/03/22 01:50 ABG pCO2 54.1 mmHg (35-45) H 12/03/22 01:50 ABG pO2 67.2 mmHg (80.0-100.0) L 12/03/22 01:50 ABG HCO3 27.5 mmol/L (22-26) H 12/03/22 01:50 ABG Base Excess 0.5 mmol/L (-2.0-2.0) 12/03/22 01:50 Pedro Test Pos 12/03/22 01:50 Hematocrit 33.5 % (42-52) L 12/03/22 01:50 Hgb O2 Saturation 90.3 % (95-100) L 11/29/22 09:50 Carboxyhemoglobin 1.6 %THgb (0.4-20.1) 11/29/22 09:50 Methemoglobin 0.5 % (0.4-1.5) 11/29/22 09:50 Total Hemoglobin 12.2 g/dL (14-18) L 11/29/22 09:50 O2 Delivery Device Oxy mask 12/03/22 01:50 O2 Liters/Min 9.0 % 12/03/22 01:50 Horse Race Timer ID Pierre 12/03/22 01:50 Sodium 137 mmol/L (136-145) 12/06/22 07:36 Potassium 4.6 mmol/L (3.5-5.1) 12/06/22 07:36 Chloride 97 mmol/L (98-107) L 12/06/22 07:36 Carbon Dioxide 25 mmol/L (22-29) 12/06/22 07:36 Anion Gap 19.6 (5-19) H 12/06/22 07:36 BUN 45 mg/dL (6-20) H 12/06/22 07:36 Creatinine 3.0 mg/dL (0.7-1.2) H 12/06/22 07:36 GFR Calculation 21.8 mL/min (90-130) L 12/06/22 07:36 Glucose 108 mg/dL (65-115) 12/06/22 07:36 POC Glucose 193 mg/dL (70-110) H 12/06/22 11:38 Estimat Average Glucose 203 11/29/22 09:28 Hemoglobin A1c 8.7 % (4.0-6.0) H 11/29/22 09:28 Calculated Osmolality 296 mOsm/kg (285-295) H 12/06/22 07:36 Lactic Acid 0.8 mmol/L (0.5-2.2) 11/29/22 10:08 Calcium 9.0 mg/dL (8.5-10.5) 12/06/22 07:36 Phosphorus 3.7 mg/dL (2.5-4.5) 12/01/22 05:14 Magnesium 1.7 mg/dL (1.7-2.3) 12/02/22 00:35 Total Bilirubin 0.4 mg/dL (0.15-1.2) 11/30/22 03:18 AST 27 U/L (0-40) 11/30/22 03:18 ALT 14 U/L (0-41) 11/30/22 03:18 Alkaline Phosphatase 202 U/L (40-130) H 11/30/22 03:18 Troponin T Baseline 442 ng/L (0-15) H* 11/29/22 10:00 Troponin T 120 Minute 415.2 ng/L (0-15) H 11/29/22 11:56 Delta Troponin T -26.8 ABS# (0-10) L 11/29/22 11:56 Troponin T Hi Sens 6Hr 421.0 ng/L (0-15) H 11/29/22 16:00 Troponin T Hi Sens 6Hr Delta -21.0 ng/L (0-12) L 11/29/22 16:00 NT-Pro-B Natriuret Pep 08936 pg/mL (0-125) H 11/29/22 10:08 Total Protein 5.8 g/dL (6.6-8.7) L D 11/30/22 03:18 Albumin 2.3 g/dL (3.5-5.2) L 11/30/22 03:18 Globulin 3.5 g/dL (1.3-4.6) 11/30/22 03:18 Triglycerides 103 mg/dL (0-150) 11/29/22 10:00 Cholesterol 142 mg/dL (0-200) 11/29/22 10:00 LDL Cholesterol, Calc 81 mg/dL (50-129) 11/29/22 10:00 HDL Cholesterol 40 mg/dL (60-100) L 11/29/22 10:00 LDL/HDL Ratio 2.03 RATIO (0.00-3.22) 11/29/22 10:00 Cholesterol/HDL Ratio 3.55 mg/dL (1.0-5.00) 11/29/22 10:00 Procalcitonin 0.13 ng/mL (0-0.5) 11/29/22 10:08 TSH 2.21 uIU/mL (0.27-4.20) 11/29/22 10:00 Coronavirus 229E (PCR) Not detected (NOT DETECT) 11/29/22 13:25 SARS-CoV-2 (PCR) Not detected (NOT DETECT) 11/29/22 13:25 A&P Assessment and plan (1) Acute diastolic heart failure: Currently compensated. May continue on the current medications (2) Elevated troponin: Patient seems to have a very low ischemic burden, based on the perfusion scan. At this point, it may be appropriate to continue the medical treatment. Because of his abnormal kidney function, he carries a high risk for contrast-induced nephropathy. This was discussed in detail with the patient. Patient understood this well. (3) Type 2 diabetes mellitus: Continue the current management (4) 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: Follow-up evaluation no similar previous studies are available for comparison management as per nephrology (5) Hyperkalemia: Currently normokalemic. May continue on the current management Plan Patient is going home today. Appointment the [facility] in 2 weeks to be seen by the nurse practitioner Appoint with me in the office in 2-month Attestations 2 Medical Necessity Statement*: Discharge home today Coding Level of Care Code 70303 Diagnoses Acute diastolic heart failure I50.31 Elevated troponin R77.8 Type 2 diabetes mellitus E11.9 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 E11.22 Hyperkalemia E87.5
--- NOTE | 2022-12-06 14:58 | PC.NURSE ---
discharge instructions given and explained to pt's cg (max).she verb understanding of instructions.i strongly encouraged to weigh pt daily...niece states he's way too stubborn for that..i have been taking care of him for years .discharged via w/c to exit at this time
== END 2022-12-06 15:00 | disposition home health service (06) | DRG 280 ==
LOC: ER 11:44 → CSU 12:40
PROVIDERS: Emergency Medicine; Internal Medicine Cardiovascular Disease; Student in an Organized Health Care Education/Training Program; Admitting Provider Internal Medicine; Emergency Provider Physician Assistant; PCP Nurse Practitioner Family; Visit Provider Internal Medicine
DX: I13.0 Hypertensive heart and chronic kidney disease with heart failure and stage 1 through stage 4 chronic kidney disease, or unspecified chronic kidney disease (principal); I50.33 Acute on chronic diastolic (congestive) heart failure; I21.4 Non-ST elevation (NSTEMI) myocardial infarction; L97.423 Non-pressure chronic ulcer of left heel and midfoot with necrosis of muscle; M86.671 Other chronic osteomyelitis, right ankle and foot; N17.9 Acute kidney failure, unspecified; E87.1 Hypo-osmolality and hyponatremia; N18.30 Chronic kidney disease, stage 3 unspecified; E11.22 Type 2 diabetes mellitus with diabetic chronic kidney disease; E11.65 Type 2 diabetes mellitus with hyperglycemia; E87.5 Hyperkalemia; E11.42 Type 2 diabetes mellitus with diabetic polyneuropathy; E11.69 Type 2 diabetes mellitus with other specified complication; E11.621 Type 2 diabetes mellitus with foot ulcer; L97.512 Non-pressure chronic ulcer of other part of right foot with fat layer exposed; Z91.199 Patient's noncompliance with other medical treatment and regimen due to unspecified reason; Z79.4 Long term (current) use of insulin; Z79.82 Long term (current) use of aspirin; E78.5 Hyperlipidemia, unspecified; Z82.49 Family history of ischemic heart disease and other diseases of the circulatory system; R09.02 Hypoxemia
CPT/HCPCS: 12345; 36415; 36416; 36600; 51702; 71045; 73630; 73718; 78452; 80048; 80053; 80061; 82803; 82805; 82962; 83036; 83605; 83735; 83880; 84100; 84145; 84443; 84484; 85025; 85730; 87040; 87635; 93005; 93017; 93308; 94664; 94760; 96365; 96372; 96374; 96375; 96376; 97110; 97161; 97530; 99285; A9500; C9113; J1644; J1815; J1940; J2785; P9046; Q3014

== ENCOUNTER → 2022-12-10 16:20 | Outpatient (BNVA) | payer MEDICARE, MEDICAID, SELFPAY | PROVIDERS: PCP Nurse Practitioner Family; Visit Provider Thoracic Surgery (Cardiothoracic Vascular Surgery) | DX: I96 Gangrene, not elsewhere classified (principal); E11.621 Type 2 diabetes mellitus with foot ulcer; L89.623 Pressure ulcer of left heel, stage 3; L89.892 Pressure ulcer of other site, stage 2 | CPT/HCPCS: 11042; 11045; A6252 ==

== ENCOUNTER → 2022-12-19 16:00 | Outpatient (BNVA) | payer MEDICARE, MEDICAID, SELFPAY | PROVIDERS: PCP Nurse Practitioner Family; Visit Provider Thoracic Surgery (Cardiothoracic Vascular Surgery) | DX: I96 Gangrene, not elsewhere classified (principal); E11.621 Type 2 diabetes mellitus with foot ulcer; L89.893 Pressure ulcer of other site, stage 3; L89.892 Pressure ulcer of other site, stage 2 | CPT/HCPCS: 11044; 11047; 87070; 87176; 87205; 97597 ==

== ENCOUNTER → 2022-12-19 16:50 | Outpatient (BNVA) | payer MEDICARE, MEDICAID, SELFPAY | PROVIDERS: PCP Nurse Practitioner Family; Visit Provider Thoracic Surgery (Cardiothoracic Vascular Surgery) | DX: E11.621 Type 2 diabetes mellitus with foot ulcer (principal); L97.425 Non-pressure chronic ulcer of left heel and midfoot with muscle involvement without evidence of necrosis | CPT/HCPCS: 87077; 87186 ==

== ENCOUNTER → 2022-12-26 16:01 | Outpatient (BNVA) | payer MEDICARE, MEDICAID, SELFPAY | PROVIDERS: PCP Nurse Practitioner Family; Visit Provider Thoracic Surgery (Cardiothoracic Vascular Surgery) | DX: I96 Gangrene, not elsewhere classified (principal); E11.621 Type 2 diabetes mellitus with foot ulcer; L89.892 Pressure ulcer of other site, stage 2; L89.623 Pressure ulcer of left heel, stage 3; Z09 Encounter for follow-up examination after completed treatment for conditions other than malignant neoplasm | CPT/HCPCS: 11042; 11045 ==

== ENCOUNTER 2022-12-31 16:31 | Inpatient (IN) | payer MEDICARE, MEDICAID, SELFPAY ==
[2022-12-31] VITALS (9 sets, daily range): BP systolic 140–163; BP diastolic 70–87; PULSE 87–101; RESP 16; TEMP 36.7–37.2; O2SAT 94–100; BMI 41.3
[2022-12-31 16:45] LABS: Glucose Point of Care 574 mg/dL (70-110)
--- NOTE | 2022-12-31 17:07 | ECG_ITS ---
[facility] Test Date: 2022-12-31 Pat Name: Tim Robison Department: Room: Gender: Male Phd Internship: : 1965 Requested By: Osiel Bolton Order Number: [id number] Iwona MD: Davin Diaz M.D. Measurements Intervals Chicken Rate: 100 P: 15 MT: 164 QRS: 157 QRSD: 137 T: 15 QT: 350 QTc: 453 Interpretive Statements SINUS TACHYCARDIA RIGHT AXIS DEVIATION [QRS AXIS > 100] RIGHT BUNDLE BRANCH BLOCK [120+ ms QRS DURATION, UPRIGHT V1, 40+ ms S IN I/aVL/V4/V5/V6] Compared to ECG 11/29/2022 15:26:24 Sinus rhythm no longer present Myocardial infarct finding no longer present Electronically Signed On 12-31-2022 22:52:33 CDT by Davin Diaz M.D. [email or web address]
[2022-12-31 17:16] LABS: Basophils # 0.1 10^3/uL (0.0-0.1); Basophils % 0.2 %; Hematocrit 30.2 % (42.0-52.0); Hemoglobin 9.2 g/dL (11.7-16.6); Lymphocytes # 0.8 10^3/uL (0.8-4.8); Lymphocytes % 3.8 %; Mean Corpuscular HGB Conc 30.5 g/dL (30.0-36.0); Mean Corpuscular Hemoglobin 26.9 pg (28.0-34.0); Mean Corpuscular Volume 88.3 fl (80-94); Mean Platelet Volume 12.3 fL (7.4-10.4); Monocytes # 0.8 10^3/uL (0.2-0.9); Monocytes % 3.7 %; Neutrophils # 19.96 10^3/uL (1.8-7.7); Neutrophils % 91.2 %; Nucleated Red Blood Cells % 0 %; Platelet Count 191 10^3/cmm (130-400); Red Blood Count 3.42 10^6/uL (4.1-5.3); Red Cell Distribution Width 16.3 % (12.1-15.1); White Blood Count 21.9 10^3/uL (4.0-10.0)
--- NOTE | 2022-12-31 17:30 | PC.PHAR ---
pt was prescribed Imipenem/Cilastatin but states he has not picked up yet or started
[2022-12-31 17:33] LABS: Alanine Aminotransferase 6 U/L (0-41); Albumin Level 3.3 g/dL (3.5-5.2); Alkaline Phosphatase 160 U/L (40-130); Anion Gap 25.9 (5-19); Aspartate Amino Transferase 11 U/L (0-40); Blood Urea Nitrogen 55 mg/dL (6-20); Calcium 8.6 mg/dL (8.5-10.5); Carbon Dioxide 13 mmol/L (22-29); Chloride 92 mmol/L (98-107); Glomerular Filtration Rate 13.3 mL/min (90-130); Osmolality Calculated 300 mOsm/kg (285-295); Potassium 5.9 mmol/L (3.5-5.1); Sodium 125 mmol/L (136-145); Total Bilirubin 0.5 mg/dL (0.15-1.2); Total Protein 7.3 g/dL (6.6-8.7)
--- NOTE | 2022-12-31 17:36 | ED_ITS ---
Documented by User: Osiel Hagen DO 01/01/23 06:19 HPI - Wound/Laceration General: Chief Complaint: Wound/Laceration Stated Complaint: FOOT INFECTION Time Seen by Provider: 12/31/22 16:34 Source: patient Mode of arrival: EMS History of Present Illness: 57-year-old male who presents to the emergency room complaining of ulcerations from his feet is left lower leg wound has been chronically present history of diabetes mellitus diabetic foot ulcers has been seeing wound care its been worsening increased drainage for the last week they are concerned about infection home health care seen today and contacted EMS to have him come to the emergency room to get evaluated. Onset (ago): week(s) Associated symptoms: Denies chills, fever(s), nausea or vomiting Review of Systems Const: Denies: fever(s), chills, body aches, change in appetite, fatigue or malaise ENMT: Denies: throat pain, ear or mastoid pain, nasal discharge or nasal congestion Card: Denies: chest pain, palpitations, irregular heart rhythm, edema, dyspnea on exertion or orthopnea Resp: Denies: dyspnea, productive cough or non-productive cough GI: Reports: abdominal pain; Denies: nausea, vomiting, hematemesis, coffee ground emesis, diarrhea, constipation, bloating, hematochezia or melena : Denies: flank pain, dysuria, urinary frequency or urinary urgency Skin/Breast: Denies: rash or pruritus PFSH ED PFSH: Medical History Acute diastolic heart failure Acute kidney injury superimposed on CKD Aspiration pneumonia Chronic kidney disease 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 Chronic osteomyelitis Chronic osteomyelitis 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 Chronic ulcer of right foot with fat layer exposed CKD (chronic kidney disease) Congestive heart failure Diabetes Diabetic peripheral neuropathy associated with type 2 diabetes mellitus Diabetic ulcer of foot associated with diabetes mellitus due to underlying condition, with fat layer exposed Elevated troponin Hyperkalemia Hyperkalemia Hyperlipidemia Hypoxia Neuropathy NSTEMI (non-ST elevated myocardial infarction) Onychomycosis of nail of digit of hand PVD (peripheral vascular disease) Type 2 diabetes mellitus Type 2 diabetes mellitus with foot ulcer Uncontrolled type 2 diabetes with neuropathy Surgical History H/O circumcision H/O colonoscopy 7 yrs ago Status post debridement of ulcer of heel Family History Brother Cancer Sister Lung disease Mother Heart failure Father Chronic kidney failure Denies family history of Anesthesia complication Bleeding disorder Social History Smoking and tobacco status: former smoker Second hand smoke exposure: No Alcohol intake: never Adopted: No Lives independently: Yes Marital status: Single Current occupational status: disabled Physical Exam Const: GENERAL APPEARANCE: cooperative and comfortable ORIENTATION/CONSCIOUSNESS: Yes awake, Yes oriented to person, Yes oriented to place and Yes oriented to time HENMT: COMMON NORMALS: normocephalic, atraumatic and hearing grossly normal bilaterally HEAD & SCALP: normocephalic and atraumatic Resp: COMMON NORMALS: normal respiratory effort, No retractions, No use of accessory muscles and clear to auscultation bilaterally AUSCULTATION: clear to auscultation bilaterally Cardio: COMMON NORMALS: regular rate, regular rhythm and No murmurs present (Cardio) RATE: regular rate RHYTHM: regular rhythm GI: COMMON NORMALS: Soft to palpation and No hepatosplenomegaly present AUSCULTATION: Yes normoactive bowel sounds PALPATION: Yes Soft to palpation, No Tenderness to palpation present (GI), No Guarding due to palpation present (GI) and Yes No hepatosplenomegaly present Extremity: COMMON NORMALS: normal to inspection, capillary refill normal, no clubbing, cyanosis or edema, no calf tenderness and no pedal edema Neuro: SENSORIUM/ORIENTATION: Yes oriented to person, Yes oriented to place and Yes oriented to time Skin: OTHER: Chronic ulcers in the legs see Dr. Ng's notes Course Vital Signs: Vital signs: Vital Signs Temperature 98.3 F 01/01/23 04:00 Pulse Rate 77 01/01/23 04:00 Respiratory Rate 20 H 01/01/23 04:00 Blood Pressure 140/79 01/01/23 04:00 Pulse Oximetry 98 01/01/23 04:00 Oxygen Delivery Me thod 01/01/23 04:00 Oxygen Flow Rate 2 12/31/22 21:58 Fraction of Inspir ed Oxygen 40 01/01/23 03:42 MDM - Wound/Laceration Medical Decision Making Care signed out to Dr. Ng at change of shift. See final notes for diagnosis and disposition. Patient presents here with foot ulcer to his left foot along with some cellulitis he is got an elevated white count slightly acute kidney injury compared to his baseline and hyperglycemia he is an uncontrolled diabetic we will give him insulin here along with IV antibiotics I spoke to hospitalist who will admit. Medical Records I reviewed the patient's medical records. Lab Data I reviewed the patient's lab results. 12/31/22 16:16 12/31/22 16:16 Radiology Impressions Foot X-Ray 12/31/22 19:02 IMPRESSION: Increase in extent of sclerotic change within the calcaneus is suspicious for progression of osteomyelitis. Increase in prominence of soft tissue defect overlying the calcaneus can be correlated with progression of ulcer or interval debridement. Laboratory Results WBC 21.9 10^3/uL (4.0-10.0) H 12/31/22 16:16 RBC 3.42 10^6/uL (4.1-5.3) L 12/31/22 16:16 Hgb 9.2 g/dL (11.7-16.6) L 12/31/22 16:16 Hct 30.2 % (42.0-52.0) L 12/31/22 16:16 MCV 88.3 fl (80-94) 12/31/22 16:16 MCH 26.9 pg (28.0-34.0) L 12/31/22 16:16 MCHC 30.5 g/dL (30.0-36.0) 12/31/22 16:16 RDW 16.3 % (12.1-15.1) H 12/31/22 16:16 Plt Count 191 10^3/cmm (130-400) 12/31/22 16:16 MPV 12.3 fL (7.4-10.4) H 12/31/22 16:16 Neut % (Auto) 91.2 % 12/31/22 16:16 Lymph % (Auto) 3.8 % 12/31/22 16:16 Cloud % (Auto) 3.7 % 12/31/22 16:16 Eos % (Auto) 0.0 % 12/31/22 16:16 Baso % (Auto) 0.2 % 12/31/22 16:16 Neut # (Auto) 19.96 10^3/uL (1.8-7.7) H 12/31/22 16:16 Lymph # (Auto) 0.8 10^3/uL (0.8-4.8) 12/31/22 16:16 Cloud # (Auto) 0.8 10^3/uL (0.2-0.9) 12/31/22 16:16 Eos # (Auto) 0.0 10^3/uL (0.0-0.8) 12/31/22 16:16 Baso # (Auto) 0.1 10^3/uL (0.0-0.1) 12/31/22 16:16 Nucleated RBC % (auto) 0 % 12/31/22 16:16 Nucleated RBCs # 0.0 /100WBC 12/31/22 16:16 ESR 61 mm/hr (0-10) H 12/31/22 16:16 Sodium 125 mmol/L (136-145) L 12/31/22 16:16 Potassium 5.9 mmol/L (3.5-5.1) H 12/31/22 16:16 Chloride 92 mmol/L (98-107) L 12/31/22 16:16 Carbon Dioxide 13 mmol/L (22-29) L 12/31/22 16:16 Anion Gap 25.9 (5-19) H 12/31/22 16:16 BUN 55 mg/dL (6-20) H 12/31/22 16:16 Creatinine 4.6 mg/dL (0.7-1.2) H 12/31/22 16:16 GFR Calculation 13.3 mL/min (90-130) L 12/31/22 16:16 Glucose 549 mg/dL (65-115) H* 12/31/22 16:16 POC Glucose 574 mg/dL (70-110) H* 12/31/22 16:42 Estimat Average Glucose 203 12/31/22 16:16 Hemoglobin A1c 8.7 % (4.0-6.0) H 12/31/22 16:16 Calculated Osmolality 300 mOsm/kg (285-295) H 12/31/22 16:16 Lactate 1.1 mmol/L (0.5-2.2) 12/31/22 17:00 Calcium 8.6 mg/dL (8.5-10.5) 12/31/22 16:16 Total Bilirubin 0.5 mg/dL (0.15-1.2) 12/31/22 16:16 AST 11 U/L (0-40) 12/31/22 16:16 ALT 6 U/L (0-41) 12/31/22 16:16 Alkaline Phosphatase 160 U/L (40-130) H 12/31/22 16:16 NT-Pro-B Natriuret Pep > 69958 pg/mL (0-125) H 12/31/22 16:16 Total Protein 7.3 g/dL (6.6-8.7) 12/31/22 16:16 Albumin 3.3 g/dL (3.5-5.2) L 12/31/22 16:16 Globulin 4.0 g/dL (1.3-4.6) 12/31/22 16:16 Procalcitonin 0.61 ng/mL (0-0.5) H 12/31/22 16:16 Urine Color Yellow (Yellow) 12/31/22 18:20 Urine Appearance Sl hazy (CLEAR) A 12/31/22 18:20 Urine pH 5 (5-7) 12/31/22 18:20 Ur Specific [place] 1.015 (1.005-1.030) 12/31/22 18:20 Urine Protein 3+ (Negative) H 12/31/22 18:20 Urine Glucose (UA) 4+ (Normal) H 12/31/22 18:20 Urine Ketones 1+ (Negative) H 12/31/22 18:20 Urine Blood 2+ (Negative) H 12/31/22 18:20 Urine Nitrate Negative (Negative) 12/31/22 18:20 Urine Bilirubin Neg (Negative) 12/31/22 18:20 Urine Urobilinogen Neg mg/dL (Negative) 12/31/22 18:20 Ur Leukocyte Esterase Negative (Negative) 12/31/22 18:20 Urine RBC 5-10 /hpf (0-2) H 12/31/22 18:20 Urine WBC 0-4 /hpf (0-5) H 12/31/22 18:20 Ur Squamous Epith Cells 0-4 /hpf (0-5) H 12/31/22 18:20 Amorphous Sediment 2+ /hpf 12/31/22 18:20 Urine Bacteria 1+ /hpf (NONE) H 12/31/22 18:20 Hyaline Casts 0-4 /lpf H 12/31/22 18:20 Fine Granular Casts 0-4 /lpf H 12/31/22 18:20 Serum Ketones Positive (Negative) H 12/31/22 16:16 Discharge Plan Discharge Patient Disposition: Admitted As Inpatient Admit Provider: Abisai Maddox Clinical Impression: Foot ulcer, left, Cellulitis, Hyperglycemia Condition: Stable Coding Level of Care Code ED Filing Or Registry Clerk for Chg Fwd Documented by User: Hakeem Ng MD 12/31/22 19:29 HPI - Wound/Laceration General: Chief Complaint: Wound/Laceration Stated Complaint: FOOT INFECTION Time Seen by Provider: 12/31/22 16:34 PFSH ED PFSH: Medical History Acute diastolic heart failure Acute kidney injury superimposed on CKD Aspiration pneumonia Chronic kidney disease 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 Chronic osteomyelitis Chronic osteomyelitis 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 Chronic ulcer of right foot with fat layer exposed CKD (chronic kidney disease) Congestive heart failure Diabetes Diabetic peripheral neuropathy associated with type 2 diabetes mellitus Diabetic ulcer of foot associated with diabetes mellitus due to underlying condition, with fat layer exposed Elevated troponin Hyperkalemia Hyperkalemia Hyperlipidemia Hypoxia Neuropathy NSTEMI (non-ST elevated myocardial infarction) Onychomycosis of nail of digit of hand PVD (peripheral vascular disease) Type 2 diabetes mellitus Type 2 diabetes mellitus with foot ulcer Uncontrolled type 2 diabetes with neuropathy Surgical History H/O circumcision H/O colonoscopy 7 yrs ago Status post debridement of ulcer of heel Family History Brother Cancer Sister Lung disease Mother Heart failure Father Chronic kidney failure Denies family history of Anesthesia complication Bleeding disorder Social History Smoking and tobacco status: former smoker Second hand smoke exposure: No Alcohol intake: never Adopted: No Lives independently: Yes Marital status: Single Current occupational status: disabled Course Vital Signs: Vital signs: Vital Signs Temperature 98.3 F 01/01/23 04:00 Pulse Rate 77 01/01/23 04:00 Respiratory Rate 20 H 01/01/23 04:00 Blood Pressure 140/79 01/01/23 04:00 Pulse Oximetry 98 01/01/23 04:00 Oxygen Delivery Me thod 01/01/23 04:00 Oxygen Flow Rate 2 12/31/22 21:58 Fraction of Inspir ed Oxygen 40 01/01/23 03:42 MDM - Wound/Laceration Medical Decision Making Patient presents here with foot ulcer to his left foot along with some cellulitis he is got an elevated white count slightly acute kidney injury compared to his baseline and hyperglycemia he is an uncontrolled diabetic we will give him insulin here along with IV antibiotics I spoke to hospitalist who will admit. Lab Data 12/31/22 16:16 12/31/22 16:16 Radiology Impressions Foot X-Ray 12/31/22 19:02 IMPRESSION: Increase in extent of sclerotic change within the calcaneus is suspicious for progression of osteomyelitis. Increase in prominence of soft tissue defect overlying the calcaneus can be correlated with progression of ulcer or interval debridement. Laboratory Results WBC 21.9 10^3/uL (4.0-10.0) H 12/31/22 16:16 RBC 3.42 10^6/uL (4.1-5.3) L 12/31/22 16:16 Hgb 9.2 g/dL (11.7-16.6) L 12/31/22 16:16 Hct 30.2 % (42.0-52.0) L 12/31/22 16:16 MCV 88.3 fl (80-94) 12/31/22 16:16 MCH 26.9 pg (28.0-34.0) L 12/31/22 16:16 MCHC 30.5 g/dL (30.0-36.0) 12/31/22 16:16 RDW 16.3 % (12.1-15.1) H 12/31/22 16:16 Plt Count 191 10^3/cmm (130-400) 12/31/22 16:16 MPV 12.3 fL (7.4-10.4) H 12/31/22 16:16 Neut % (Auto) 91.2 % 12/31/22 16:16 Lymph % (Auto) 3.8 % 12/31/22 16:16 Cloud % (Auto) 3.7 % 12/31/22 16:16 Eos % (Auto) 0.0 % 12/31/22 16:16 Baso % (Auto) 0.2 % 12/31/22 16:16 Neut # (Auto) 19.96 10^3/uL (1.8-7.7) H 12/31/22 16:16 Lymph # (Auto) 0.8 10^3/uL (0.8-4.8) 12/31/22 16:16 Cloud # (Auto) 0.8 10^3/uL (0.2-0.9) 12/31/22 16:16 Eos # (Auto) 0.0 10^3/uL (0.0-0.8) 12/31/22 16:16 Baso # (Auto) 0.1 10^3/uL (0.0-0.1) 12/31/22 16:16 Nucleated RBC % (auto) 0 % 12/31/22 16:16 Nucleated RBCs # 0.0 /100WBC 12/31/22 16:16 ESR 61 mm/hr (0-10) H 12/31/22 16:16 Sodium 125 mmol/L (136-145) L 12/31/22 16:16 Potassium 5.9 mmol/L (3.5-5.1) H 12/31/22 16:16 Chloride 92 mmol/L (98-107) L 12/31/22 16:16 Carbon Dioxide 13 mmol/L (22-29) L 12/31/22 16:16 Anion Gap 25.9 (5-19) H 12/31/22 16:16 BUN 55 mg/dL (6-20) H 12/31/22 16:16 Creatinine 4.6 mg/dL (0.7-1.2) H 12/31/22 16:16 GFR Calculation 13.3 mL/min (90-130) L 12/31/22 16:16 Glucose 549 mg/dL (65-115) H* 12/31/22 16:16 POC Glucose 574 mg/dL (70-110) H* 12/31/22 16:42 Estimat Average Glucose 203 12/31/22 16:16 Hemoglobin A1c 8.7 % (4.0-6.0) H 12/31/22 16:16 Calculated Osmolality 300 mOsm/kg (285-295) H 12/31/22 16:16 Lactate 1.1 mmol/L (0.5-2.2) 12/31/22 17:00 Calcium 8.6 mg/dL (8.5-10.5) 12/31/22 16:16 Total Bilirubin 0.5 mg/dL (0.15-1.2) 12/31/22 16:16 AST 11 U/L (0-40) 12/31/22 16:16 ALT 6 U/L (0-41) 12/31/22 16:16 Alkaline Phosphatase 160 U/L (40-130) H 12/31/22 16:16 NT-Pro-B Natriuret Pep > 39221 pg/mL (0-125) H 12/31/22 16:16 Total Protein 7.3 g/dL (6.6-8.7) 12/31/22 16:16 Albumin 3.3 g/dL (3.5-5.2) L 12/31/22 16:16 Globulin 4.0 g/dL (1.3-4.6) 12/31/22 16:16 Procalcitonin 0.61 ng/mL (0-0.5) H 12/31/22 16:16 Urine Color Yellow (Yellow) 12/31/22 18:20 Urine Appearance Sl hazy (CLEAR) A 12/31/22 18:20 Urine pH 5 (5-7) 12/31/22 18:20 Ur Specific [place] 1.015 (1.005-1.030) 12/31/22 18:20 Urine Protein 3+ (Negative) H 12/31/22 18:20 Urine Glucose (UA) 4+ (Normal) H 12/31/22 18:20 Urine Ketones 1+ (Negative) H 12/31/22 18:20 Urine Blood 2+ (Negative) H 12/31/22 18:20 Urine Nitrate Negative (Negative) 12/31/22 18:20 Urine Bilirubin Neg (Negative) 12/31/22 18:20 Urine Urobilinogen Neg mg/dL (Negative) 12/31/22 18:20 Ur Leukocyte Esterase Negative (Negative) 12/31/22 18:20 Urine RBC 5-10 /hpf (0-2) H 12/31/22 18:20 Urine WBC 0-4 /hpf (0-5) H 12/31/22 18:20 Ur Squamous Epith Cells 0-4 /hpf (0-5) H 12/31/22 18:20 Amorphous Sediment 2+ /hpf 12/31/22 18:20 Urine Bacteria 1+ /hpf (NONE) H 12/31/22 18:20 Hyaline Casts 0-4 /lpf H 12/31/22 18:20 Fine Granular Casts 0-4 /lpf H 12/31/22 18:20 Serum Ketones Positive (Negative) H 12/31/22 16:16 Discharge Plan Discharge Patient Disposition: Admitted As Inpatient Admit Provider: Abisai Maddox Clinical Impression: Foot ulcer, left, Cellulitis, Hyperglycemia Condition: Stable Coding Level of Care Code ED Filing Or Registry Clerk for Blaise Beckett
[2022-12-31 17:41] LABS: Glucose 549 mg/dL (65-115)
[2022-12-31 18:53] LABS: Lactate (Lactic Acid level) 1.1 mmol/L (0.5-2.2)
[2022-12-31] MEDS: vancomycin 1,000 MG in sodium chloride 0.9% 250 ML 250 MG IV (18:53)
--- NOTE | 2022-12-31 19:02 | XRR_ITS ---
PROCEDURE INFORMATION: Exam: XR Left Foot Exam date and time: 12/31/2022 7:56 PM Age: 57 years old Clinical indication: Other: Lt foot ulcer; Additional info: Wound TECHNIQUE: Imaging protocol: Radiologic exam of the left foot. Views: 3 or more views. COMPARISON: CR (LOW EXM, ) 12/02/2022 9:00 AM FINDINGS: Bones/joints: Diffuse osteopenia. Sclerosis of calcaneus mildly increased in extent. Irregularities again suggested along cortical margin of calcaneus. Overlying soft tissue defect suggested that is increased from prior study. Soft tissues: Diffuse subcutaneous edema noted. XR/XR foot LT min 3V* [id number] IMPRESSION: Increase in extent of sclerotic change within the calcaneus is suspicious for progression of osteomyelitis. Increase in prominence of soft tissue defect overlying the calcaneus can be correlated with progression of ulcer or interval debridement.
[2022-12-31 19:16] LABS: Urine Color Yellow (Yellow)
[2022-12-31 19:17] LABS: Add Urine Microscopic? YES; Amorphous Sediment Urine 2+ /hpf; Bacteria Urine 1+ /hpf; Bilirubin Urine Neg (Negative); Blood Urine 2+ (Negative); Glucose Urine UA 4+ (Normal); Ketones Urine 1+ (Negative); Leukocyte Esterase Urine Negative (Negative); Nitrate Urine Negative (Negative); Protein Urine 3+ (Negative); Specific Gravity, Urine 1.015 (1.005-1.030); Squamous Epithelial Cell Urine 0-4 /hpf (0-5); Urine Appearance SL Hazy (CLEAR); Urobilinogen Urine Neg (Negative); WBC Urine 0-4 /hpf (0-5); pH Urine 5 (5-7)
[2022-12-31 19:18] LABS: Add Urine Culture? No; Fine Granular Casts Urine 0-4 /lpf; Hyaline Casts Urine 0-4 /lpf
[2022-12-31] MEDS: insulin regular-human 100 units/1 mL 10 UNIT IVP (19:34)
[2022-12-31 19:35] LABS: NT Pro B Type Natriuretic Pept > 70000 pg/mL (0-125)
--- NOTE | 2022-12-31 19:44 | PM.HP ---
Providers/Chief Complaint Primary Care Provider: SERAFIN Reza Chief Complaint: FOOT INFECTION History of Present Illness Tim Robison is a 57 year old male presented for worsening of swelling of bilateral lower extremities and inability to ambulate. He has multiple comorbid conditions, noncompliance, type 2 diabetes with diabetic foot ulcers, peripheral neuropathy, chronic osteomyelitis, follows up with Dr. Carballo at wound care clinic was discharged in November when he was admitted for diastolic CHF exacerbation, NSTEMI, stress test was pursued which showed gurjit-infarct ischemia, medical management was recommended his baseline creatinine is around 2.6, Dr. Allen recommended continuation of antibiotics such as ciprofloxacin and Flagyl he was getting Hydrofera Blue primary dressing followed by ABD Kerlix and Lobo wraps twice daily, he also has lymphedema as well. 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 As per the patient he has remained compliant with his medications. Dr. Carballo's last wound care evaluation recommended wet-to-dry dressing, Dakin's solution, Lobo wraps, at that point a PICC line was recommended for appropriate renal dosing of antibiotics, his cultures were positive for Pseudomonas and Alcaligenes faecalis sensitive to Zyvox, pharmacy was consulted for appropriate dosing MRI foot 12/03 1.? Marrow edema suggest an acute process involving the fifth metatarsal head and proximal phalanx. Suspicious for osteomyelitis. 2.? Additional erosive changes and abnormal configuration of the second through fourth metatarsal heads with only very minimal if any edema. These are probably chronic areas of osteomyelitis or posttraumatic changes. 3.? Focal 2.6 cm ulcer along the plantar surface of the foot at the level of the second metatarsal head. No increased T2 signal. 4.? Mild cellulitis over the lateral distal fifth metatarsal and toe. Review of Systems Const: Reports: fever(s) Eyes: Denies: change in vision ENMT: Denies: throat pain Card: Denies: chest pain Resp: Denies: dyspnea GI: Denies: early satiety : Denies: flank pain Musc: Denies: neck pain Skin/Breast: Reports: rash Neuro: Denies: headache(s) Psych: Reports: anxiety Endo: Denies: polyuria Jarrod/Lymph: Denies: easy bruising All/Imm: Denies: urticaria Medications/Allergies Home Medications Medication Instructions Recorded Confirmed Last Taken Type amlodipine 10 mg tablet 10 mg PO QAM 10/11/20 12/31/22 12/30/22 History gabapentin 300 mg capsule 300 mg PO BEDTIME 10/11/20 12/31/22 12/30/22 History cyanocobalamin (vitamin B-12) 1,000 mcg IM Q30D 10/30/21 12/31/22 Unknown History 1,000 mcg/mL injection solution fluticasone 100 mcg-salmeterol 50 1 inh inhalation BID #60 ea 11/02/21 12/31/22 12/30/22 Rx mcg/dose blistr powdr for inhalation (Advair Diskus) insulin lispro 100 unit/mL See Rx Instructions .Route 11/02/21 12/31/22 Unknown Rx subcutaneous pen (Humalog KwikPen .COMPLEX #0 mL (U-100) Insulin) omeprazole 40 mg capsule,delayed 40 mg PO DAILY 04/16/22 12/31/22 12/30/22 History release blood-glucose meter,continuous #1 ea 04/23/22 12/31/22 Unknown Rx (Dexcom G6 Model And Mold Maker Plaster) blood-glucose sensor (Dexcom G6 #9 ea 04/23/22 12/31/22 Unknown Rx Sensor device) blood-glucose transmitter (Dexcom #3 ea 04/23/22 12/31/22 Unknown Rx G6 Transmitter device) albuterol sulfate 90 mcg/actuation 1 puff inhalation Q6H PRN 11/29/22 12/31/22 Unknown History aerosol inhaler shortness of breath or wheezing atorvastatin 40 mg tablet 40 mg PO BEDTIME 11/29/22 12/31/22 12/30/22 History famotidine 20 mg tablet 20 mg PO BID 11/29/22 12/31/22 12/30/22 History metoprolol tartrate 100 mg tablet 100 mg PO BID 11/29/22 12/31/22 12/30/22 History pregabalin 200 mg capsule (Lyrica) 200 mg PO TID 11/29/22 12/31/22 12/30/22 History Podus Boot to the Left #1 ea 03/06/23 04/03/23 Unknown Rx aspirin 81 mg chewable tablet 81 mg PO QAM #60 tabs 12/06/22 12/31/22 12/30/22 Rx clopidogrel 75 mg tablet (Plavix) 75 mg PO DAILY #60 tabs 12/06/22 12/31/22 12/30/22 Rx furosemide 20 mg tablet (Lasix) 20 mg PO DAILY #30 tabs 12/06/22 12/31/22 12/30/22 Rx hydralazine 10 mg tablet 10 mg PO BID #60 tabs 12/06/22 12/31/22 12/30/22 Rx insulin detemir U-100 100 unit/mL 40 unit (0.4 mL) SUBCUT BEDTIME 12/06/22 12/31/22 12/30/22 Rx (3 mL) subcutaneous pen (Levemir #15 mL FlexTouch U-100 Insulin) isosorbide mononitrate 30 mg 30 mg PO DAILY #60 tabs 12/06/22 12/31/22 12/30/22 Rx tablet,extended release 24 hr sodium hypochlorite 0.125 % 1 applic topical DAILY wound #473 12/14/22 12/31/22 Unknown Rx solution (Dakin's Solution) mL metronidazole 500 mg tablet 500 mg PO BID #20 tabs 12/19/22 12/31/22 12/30/22 Rx pantoprazole 40 mg tablet,delayed 40 mg PO DAILY 12/31/22 12/31/22 12/30/22 History release Allergies Allergy/AdvReac Type Severity Reaction Status Date / Time No Known Allergies Allergy Verified 11/29/22 11:09 PFSH Acute PFSH: Medical History (Updated 12/31/22 @ 21:53 by Abisai Maddox MD) Acute diastolic heart failure Acute kidney injury superimposed on CKD Aspiration pneumonia Chronic kidney disease 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 Chronic osteomyelitis Chronic osteomyelitis 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 Chronic ulcer of right foot with fat layer exposed CKD (chronic kidney disease) Congestive heart failure Diabetes Diabetic peripheral neuropathy associated with type 2 diabetes mellitus Diabetic ulcer of foot associated with diabetes mellitus due to underlying condition, with fat layer exposed Elevated troponin Hyperkalemia Hyperkalemia Hyperlipidemia Hypoxia Neuropathy NSTEMI (non-ST elevated myocardial infarction) Onychomycosis of nail of digit of hand PVD (peripheral vascular disease) Type 2 diabetes mellitus Type 2 diabetes mellitus with foot ulcer Uncontrolled type 2 diabetes with neuropathy Surgical History H/O circumcision H/O colonoscopy 7 yrs ago Status post debridement of ulcer of heel Family History Brother Cancer Sister Lung disease Mother Heart failure Father Chronic kidney failure Denies family history of Anesthesia complication Bleeding disorder Social History Smoking and tobacco status: former smoker Second hand smoke exposure: No Alcohol intake: never Adopted: No Lives independently: Yes Marital status: Single Current occupational status: disabled Vitals/I&O/Wt Last Vital Signs Temp 98.9 F 12/31/22 16:36 Pulse 97 12/31/22 18:35 Resp 16 12/31/22 16:36 BP 140/70 12/31/22 18:35 Pulse Ox 94 12/31/22 18:35 O2 Del Method 12/31/22 18:35 O2 Flow Rate 2 12/31/22 18:35 Weight last 48 hrs Weight 127.006 kg Physical Exam Narrative: Morbidly obese male Currently on room air Left foot ankle ulcer with good clean base, dark-colored tissue about 1.5 cm strip noticed around the edges otherwise wound looks healthy, no active drainage Right plantar surface ovoid deep ulcer no active drainage however dressing was soaked with serosanguineous discharge Bilateral feet swelling Pedal edema Lymphedema S1, S2 variable Abdomen soft Currently on room air Pleasant cooperative GCS 15 Data 12/31/22 16:16 12/31/22 16:16 Micro: Microbiology 12/31/22 17:05 Blood Culture - Preliminary Blood SPECIMEN COLLECTED 12/31/22 17:00 Blood Culture - Preliminary Blood SPECIMEN COLLECTED A&P Assessment and plan (1) Foot ulcer, left: (2) Cellulitis: (3) Hyperglycemia: (4) Edema: (5) Hyponatremia: (6) Hyperkalemia: (7) Acute renal failure superimposed on stage 4 chronic kidney disease: Plan Cellulitis with Chronic osteomyelitis Significant leukocytosis No active sepsis signs Patient is afebrile Normal lactic acid Start broad-spectrum renally dosed antibiotics Judicious use of antibiotics because of chronic kidney disease, cefepime vancomycin and metronidazole She has been evaluated by Dr. Carballo, please consult Dr. Podiatry for further recommendations I would not repeat MRI at this point His wound looks healthy with good granulation tissue I do not think it will need debridement at this point Requested blood cultures, as per Dr. Carballo's recommendation PICC line was requested for Zyvox renal dose Most likely he will need PICC line after finalized blood culture report previous wound culture showed Pseudomonas and Alcaligenes faecalis Patient is living alone, independent, uses Podus boots Wet-to-dry dressing, Dakin's solution, Lobo wrap Will request arterial duplex Acute on chronic kidney disease stage IV hyperkalemia High anion gap acidosis likely related to uremia lactic acid in normal In case of further worsening he might need nephro consultation, previous baseline creatinine was 2.6-3 Hyperkalemia: We will give Kayexalate, calcium gluconate, he already received insulin in the ER Hypervolemic hyponatremia Fluid overloaded related to underlying CHF and chronic kidney disease Continue diuresis Chronic hypoxia uses 2 L of oxygen at home Diastolic CHF acute exacerbation Continue diuresis Continue 2 L of oxygen at this point Looks overloaded with high BNP Full code Diabetic diet DVT prophylaxis on board Attestations Medical Necessity Statement*: >2 midnights anticipated Diagnoses Foot ulcer, left L97.529 Cellulitis L03.90 Hyperglycemia R73.9 Edema R60.9 Hyponatremia E87.1 Hyperkalemia E87.5 Acute renal failure superimposed on stage 4 chronic kidney disease N17.9; N18.4
[2022-12-31 20:54] LABS: Lactic Sepsis W/Reflex 1.8 mmol/L (0.5-2.2)
[2022-12-31 20:58] LABS: Procalcitonin 0.61 ng/mL (0-0.5)
[2022-12-31] MEDS: atorvastatin 40 mg Tablet PO (21:48)
[2022-12-31] MEDS: sodium chloride 0.9% 1,000 ML 125 ML IV (21:48)
[2022-12-31] MEDS: insulin lispro 100 unit/1 mL SUBCUT (21:56)
[2022-12-31 21:57] LABS: Glucose Point of Care 491 mg/dL (70-110)
--- NOTE | 2022-12-31 21:59 | USCV_ITS ---
EnriquetaJuan Asaravananbam Age: 57 Gender: M : 1965 Exam Date: 12/31/2022 22:17 Ordering Phys: Abisai Maddox MD Technologist: MC [place] [facility] [place]: 1) large (5cm) open sore LEFT heel x 7 yrs (wound care) 2) small non-healing ulcer posterior to RT 1st toe x 2-3 week. 3) [id number] Risk Factors: IDDM X 30 years. non-smoker since his teens. No history vascular intervention per patient. Previous Vascular Surgery: None RIGHT LEFT BP: 132.0 / BP: 135.0/ 0 0 Waveform Velocity (cm/s) Velocity (cm/s) Waveform Triphasic 186.1 Iliac Prox 223.7 Triphasic Triphasic 189.9 Iliac Mid 199.3 Triphasic Triphasic 109.0 Iliac Distal 126.0 Triphasic Triphasic 127.5 OUTCOMES ANALYST 183.5 Triphasic Triphasic SFA Prox Triphasic 93.3 136.7 Triphasic 111.7 SFA Mid 103.4 Triphasic Triphasic 84.6 SFA Dist 169.2 Triphasic Triphasic 105.3 POP 118.4 Triphasic Triphasic RN PATIENT CARE 92.3 Triphasic 69.1 Triphasic 110.3 DPA 79.5 Triphasic 1.1 ERIC 1.1 FINDINGS Normal arterial Doppler waveforms and Doppler flow velocities Normal resting ABIs bilaterally CONCLUSIONS No evidence of any significant arterial obstruction, based on the above findings. Dr Laurita Love MD [facility] (Electronically Signed) Final Date: 01 January 2023 10:11 S
--- NOTE | 2022-12-31 21:59 | PC.PHAR ---
Pharmacokinetic dosing service Date: 12/31/22 Time: 2199 Objective: Patient: Tim Robison Floor: 252-2 Age: 57 yo Serum creatinine: 4.6 mg/dL Height: 69.0 Inches Weight (kg): 127.006 Diagnosis: Relevant medical/social history: Cultures and sensitivities: Other labs: Assessment: IBW (kg): 70.70 Dosing wt(kg): 93.2 Estimated Creatinine clearance (ml/min): 18.1 CRCL method: Cockcroft and Gault using ibw(default). Drug selected: Vancomycin Loading dose (mg): 0 Vd (liters): 83.9 (factor used: 0.9 L/kg) Anthony (hr-1): 0.019 Half life (hrs): 36.48 Recommended dose: 1500 mg Interval: 48 hrs Infusion time (hrs): 1.5 Predicted peak (mcg/mL): 29.5 Predicted trough (mcg/mL): 12.19 Adjusted body weight was selected for vancomycin dosing. To switch back, select the total body weight option above. Renal function is stable [ ] /unstable [ ] Recommendations: Give Vancomycin 1500 mg q 48 hrs with an expected Cpeak of 29.5 mcg/ml and an expected Ctrough of 12.19 mcg/ml Renal dosing of other antibiotics (review renal dosing of other medications and list guidelines here): Thank you for the consult, will continue to follow. Signature: Ivonne Victoria [facility]
[2022-12-31 22:09] LABS: Estmated Average Glucose 203; Hemoglobin A1C 8.7 % (4.0-6.0)
[2022-12-31] MEDS: bumetanide 0.25 mg/mL SDV 4 mL 1 MG IVP (23:47)
[2022-12-31 23:56] LABS: ABG PH Result 7.24 (7.35-7.45); Arterial Blood Gas Hematocrit 29.5 % (42-52); Base Excess ABG -8.7 mmol/L (-2.0-2.0); Blood Gas Allen Test Pos; Blood Gas Sample Type Arterial; HCO3 ABG 18.1 mmol/L (22-26)
[2022-12-31 23:57] LABS: Blood Gas Sample Site Brachial, right; Oxygen Device BIPAP
--- NOTE | 2022-12-31 23:58 | PC.NURSE ---
This nurse went to place a fischer with the help of SALOMÓN Sheffield. Several attempts to wake the patient were made and were unsuccessful, including using a sternal rub. The patient opened his eyes but was not speaking or answering questions. A full set of vital signs and a blood sugar were checked at 23:30. The blood sugar was 459, HR 74 BP 130/77, Sp0s 94%, temp 97.8, RR 14. This nurse called Dr. Maddox and SALOMÓN Sheffield brought the charge nurse to the room. Dr. Maddox ordered STAT ABGs, bipap, and fischer placement. Bipap and fischer were placed at 2340. ABG was drawn at 2345. The patient had 1800ml out of the fischer upon placement and began to spontaneously open his eyes after bipap and fischer were placed.
[2022-12-31 23:59] LABS: Glucose Point of Care 459 mg/dL (70-110)
[2023-01-01] VITALS (11 sets, daily range): BP systolic 116–153; BP diastolic 57–82; PULSE 62–85; RESP 13–22; TEMP 36.4–36.8; O2SAT 97–100
--- NOTE | 2023-01-01 00:25 | W.PM.EVENTAC ---
Event Note Event Note: I was called to evaluate the patient when he was stuporous Patient was waking up able to follow commands to painful stimuli Pupils are reactive to light He goes back to sleep right away Shallow breaths Vital stable Blood sugar 400+ Assessment Urinary retention related metabolic encephalopathy Hypoventilation Metabolic acidosis Plan Nonfocal neuro exam No signs of stroke Patient is able to follow commands, put him on BiPAP, blood gas showing metabolic acidosis Continue BiPAP overnight Reyes catheter placed which revealed 2 L of urine right away Acute on chronic kidney disease worsening due to urinary retention, neurogenic bladder? Spent another 20 minutes after admission RT updated, charge nurse updated, MedSurg nurse at the bedside Moderate MDM includes number and complexity of problems actively addressed during encounter, amount and/or complexity of data reviewed/ordered and described risk of complication, morbidity or mortality of management as documented
[2023-01-01] MEDS: sodium bicarbonate 8.4% 1 mEq/mL 50mL Syr 100 MEQ IVP (00:50)
[2023-01-01] MEDS: insulin regular-human 10 UNIT in SYRINGE 1 EACH IVP (00:59)
[2023-01-01 01:24] LABS: Erythrocyte Sedimentation Rate 61 mm/hr (0-10); Ketone (Acetest) Serum Positive (Negative)
[2023-01-01 01:28] LABS: Charge for UA Resulting for Rev
[2023-01-01 01:36] LABS: Add Urine Microscopic? YES; Bilirubin Urine Neg (Negative); Blood Urine 3+ (Negative); Glucose Urine UA 4+ (Normal); Ketones Urine 1+ (Negative); Leukocyte Esterase Urine Negative (Negative); Nitrate Urine Negative (Negative); Protein Urine 3+ (Negative); Specific Gravity, Urine 1.015 (1.005-1.030); Urine Appearance Clear (CLEAR); Urine Color Yellow (Yellow); Urobilinogen Urine Norm (Negative); pH Urine 5 (5-7)
[2023-01-01 01:37] LABS: Glucose Point of Care 404 mg/dL (70-110)
[2023-01-01] MEDS: calcium gluconate 0.1 gm/mL 10% SDV 10mL 1 GM IVP (01:45)
[2023-01-01 04:59] LABS: Basophils # 0.1 10^3/uL (0.0-0.1); Basophils % 0.3 %; Eosinophils % 0.2 %; Hematocrit 27.9 % (42.0-52.0); Hemoglobin 8.7 g/dL (11.7-16.6); Lymphocytes % 6.1 %; Mean Corpuscular HGB Conc 31.2 g/dL (30.0-36.0); Mean Corpuscular Hemoglobin 27.4 pg (28.0-34.0); Mean Corpuscular Volume 87.7 fl (80-94); Mean Platelet Volume 12.4 fL (7.4-10.4); Monocytes # 0.8 10^3/uL (0.2-0.9); Monocytes % 5.2 %; Neutrophils # 13.55 10^3/uL (1.8-7.7); Neutrophils % 87.2 %; Nucleated Red Blood Cells % 0 %; Platelet Count 155 10^3/cmm (130-400); Red Blood Count 3.18 10^6/uL (4.1-5.3); Red Cell Distribution Width 16.2 % (12.1-15.1); White Blood Count 15.5 10^3/uL (4.0-10.0)
[2023-01-01 05:30] LABS: Alanine Aminotransferase < 5 U/L (0-41); Albumin Level 2.7 g/dL (3.5-5.2); Alkaline Phosphatase 113 U/L (40-130); Anion Gap 14.9 (5-19); Aspartate Amino Transferase 10 U/L (0-40); Blood Urea Nitrogen 55 mg/dL (6-20); C Reactive Protein 135.9 mg/L (0.0-4.9); Calcium 8.4 mg/dL (8.5-10.5); Carbon Dioxide 22 mmol/L (22-29); Chloride 100 mmol/L (98-107); Globulin 3.8 g/dL (1.3-4.6); Glomerular Filtration Rate 13.3 mL/min (90-130); Glucose 278 mg/dL (65-115); Magnesium 2.3 mg/dL (1.7-2.3); Osmolality Calculated 299 mOsm/kg (285-295); Potassium 4.9 mmol/L (3.5-5.1); Sodium 132 mmol/L (136-145); Total Bilirubin 0.4 mg/dL (0.15-1.2); Total Protein 6.5 g/dL (6.6-8.7)
[2023-01-01 07:36] LABS: Glucose Point of Care 339 mg/dL (70-110)
--- NOTE | 2023-01-01 07:50 | US_ITS ---
WS: [id number] RENAL ULTRASOUND HISTORY: solo COMPARISON: 04/17/2022 TECHNIQUE: 2-D and color Doppler imaging of the kidney submitted. Right kidney: 11.2 cm x 4.5 cm x 5.0 cm. Cortex: 1.2 cm Normal echogenicity with no hydronephrosis or mass. Previously described cyst is not identified today . Left kidney: 11.4 cm x 4.8 cm x 4.0 cm. Cortex: 0.7 cm Mild cortical thinning. This is similar to the prior study. No obstruction or hydronephrosis. Aorta: Normal. Urinary Bladder: Reyes catheter present. Nondistended. US/US renal BI* [id number] IMPRESSION: 1. Mild diffuse cortical thinning LEFT kidney and atrophy. Similar to the prio r study. 2. No hydronephrosis.
--- NOTE | 2023-01-01 07:50 | XR_ITS ---
WS: [id number] XR chest 1V portable [id number] REASON FOR EXAM: sob FINDINGS: Compared to the most recent chest x-ray of 12/03/2022 there has been near complete resolution of the pr eviously demonstrated reticular interstitial and groundglass lung opacities throughout both lungs. Li near area of atelectasis versus fibrous scarring again noted in the left lower lung. There is elevation of the left hemidiaphragm. No definite acute pulmonary parenchymal or pleural abnormality is identified. XR/XR chest 1V portable [id number] IMPRESSION: Chest significantly improved compared to the most recent examination as above. No acute abnormality is identified.
[2023-01-01 08:16] LABS: Ferritin 617 ng/mL (30-400); Iron 18 ug/dL (59-158); Percent Saturation 14.4 % (20-50); Total Iron Binding Capacity 125 mcg/dl; Unsaturated Iron Binding 107 ug/dL (112-347)
[2023-01-01 08:52] LABS: ABG PCO2 39.1 mmHg (35-45); ABG PH Result 7.33 (7.35-7.45); Alveolar-Arterial Oxygen Gradi 5.2 mmHg (5-10); Arterial Blood Gas Hematocrit 33.2 % (42-52); Base Excess ABG -4.8 mmol/L (-2.0-2.0); Blood Gas Allen Test Pos; Blood Gas Operator Identificat GD; Blood Gas Sample Site Radial, right; Blood Gas Sample Type Arterial; Carboxyhemoglobin 1.3 %THgb (0.4-20.1); HCO3 ABG 20.7 mmol/L (22-26); HGB O2 Sat 97.5 % (95-100); Ionized Calcium Level - ABG 1.2 mmol/L (1.1-1.4); Methemoglobin 0.3 % (0.4-1.5); Oxygen Device BIPAP; Total Hemoglobin 10.8 g/dL (14-18)
[2023-01-01] MEDS: metoprolol tartrate 50 mg Tablet 100 MG PO (09:29)
[2023-01-01] MEDS: isosorbide mononitrate ER 30 mg Tablet PO (09:29)
[2023-01-01] MEDS: clopidogrel 75 mg Tablet PO (09:29)
[2023-01-01] MEDS: insulin lispro 100 unit/1 mL SUBCUT ×3 (09:30→20:59)
[2023-01-01] MEDS: meropenem 1,000 MG in sodium chloride 0.9% (plus) 50 ML 100 MG IV ×2 (09:30→20:32)
[2023-01-01] MEDS: sodium bicarbonate 650 mg Tablet PO ×3 (09:30→20:28)
[2023-01-01] MEDS: sucralfate 1 gm Tablet PO ×2 (09:33→20:28)
[2023-01-01] MEDS: pantoprazole 40 mg SDV IVP ×2 (09:51→20:27)
[2023-01-01 09:56] LABS: Troponin(5th) Baseline 199 ng/L (0-15)
--- NOTE | 2023-01-01 10:18 | PC.CHAP ---
Pastoral Care Encounter/Spiritual Assessment Type of Contact [] Declined acupuncture physician visit [] Patient/Family/Request visit [] Outpatient visit [] Follow-up visit [] Physician referral [] Code/Alert [x] Routine visit [] Staff referral [] Actively dying [] Patient sleeping [] Family support [] [] Out of room [] Palliative care [] [] Receiving care in room [] Pre-surgical visit [] Trauma [] Long length of stay [] ICU visit [] Other: Relational/Emotional Strength [] Patient feels connected with others/family/visitors/staff [] Distress [] Loneliness/isolation [] Abandonment Spirituality of Patient [] Person of Macy [] Attends Jehovah'S Witness of their Macy [] Believes in Prayer [] Reads Bible or Anabaptist materials [] There are Spiritual issues to be addressed Electronics Manufacturer Interventions [x] Prayer [] Active listening [] Non-anxious presence [] Spiritual/emotional support [] Crisis/trauma care [] Spiritual counseling [] Bereavement support [] Provided bereavement packet [] Provided Bible/devotional materials [] Provided toy/stuffed animal, coloring book to patient or family member [] Provided Communion [] Anointing/[place] [] Salvation [x] Completed spiritual assessment [] Other: Impact on Illness or Injury [] Angry [] Fearful [] Anxious [] Often cries [] Exhaustion [] Unable to work [] Unable to attend sikh [] Unable to walk/stand [] Unable to read [] Unable to drive [] Unable to eat/drink [] Unable to sleep [] Unable to be with family [] Patient intubated [] Other: Summary Time spent with patient 5 min
[2023-01-01 10:55] LABS: Troponin 5 6HR 170.4 ng/L (0-15); Troponin 5 6HR Delta -28.6 ng/L (0-12)
--- NOTE | 2023-01-01 11:22 | PC.PHAR ---
Pharmacy Renal Dose Change With patient's current CrCl of 24, per computerized mill mill recorder's recommendation, the dosage should be q12h.
[2023-01-01 11:39] LABS: Glucose Point of Care 299 mg/dL (70-110)
--- NOTE | 2023-01-01 12:21 | P.PN_ITS ---
Subjective Subjective: -patient was seen this morning, he is aaox3, he follows all commands, denies chest pain, no fever overnight Vitals/I&O/Wt Last Vital Signs Temp 97.6 F 01/01/23 08:00 Pulse 85 01/01/23 09:00 Resp 16 01/01/23 09:00 BP 153/82 01/01/23 08:00 Pulse Ox 100 01/01/23 09:00 O2 Del Method 01/01/23 09:00 O2 Flow Rate 2 01/01/23 08:00 FiO2 28 01/01/23 09:00 12/31/22 01/01/23 01/01/23 22:59 06:59 14:59 Intake Total 308.333 / 308.333 50 / 50 Output Total 800 / 800 300 / 300 Balance 308.333 / 308.333 -800 / -491.667 -250 / -250 Weight last 48 hrs Weight 127.006 kg Physical Exam Const: COMMON NORMALS: no acute distress and patient oriented x3 Resp: COMMON NORMALS: normal respiratory effort, No retractions, No use of accessory muscles and clear to auscultation bilaterally AUSCULTATION: clear to auscultation bilaterally Cardio: COMMON NORMALS: regular rate, regular rhythm, S1 normal heart sound present and S2 normal heart sound present RATE: regular rate RHYTHM: re gular rhythm HEART SOUNDS: S1 normal heart sound present and S2 normal heart sound present GI: COMMON NORMALS: Normal to inspection, nondistended, normoactive bowel sounds present and non-tender Extremity: COMMON NORMALS: no pedal edema Neuro: COMMON NORMALS: patient oriented x3 Psych: COMMON NORMALS: mental status grossly normal Skin: NARRATIVE SKIN EXAM: left foot heel, open diabetic ulcer, no exposed bone, measuring 5x5cm Urinary Catheter Management: Reyes: Cath Placed During This Visit: yes Reason for Continuing Indwelling Catheter: Acute Urinary Retention or Obstruction Urinary Catheter Date of Insertion: 12/31/22 Urinary Catheter Time of Insertion: 23:40 Data 01/01/23 04:25 01/01/23 04:25 Micro: Microbiology 12/31/22 17:05 Blood Culture - Preliminary Blood SPECIMEN COLLECTED 12/31/22 17:00 Blood Culture - Preliminary Blood SPECIMEN COLLECTED A&P Assessment and plan (1) NSTEMI (non-ST elevated myocardial infarction): (2) Anemia: (3) 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: (4) Chronic osteomyelitis: (5) Acute renal failure superimposed on stage 4 chronic kidney disease: (6) Hyperkalemia: (7) Hyponatremia: (8) Foot ulcer, left: (9) Cellulitis: (10) Hyperglycemia: (11) Edema: (12) Acute encephalopathy: (13) Sepsis: Plan Acute encephalopathy, resolved -secondary to sepsis -cellulitis Cellulitis with Chronic osteomyelitis Significant leukocytosis No active sepsis signs Patient is afebrile Normal lactic acid Start broad-spectrum renally dosed antibiotics history of esbl coutinue vancomycin switch to meropenem consult podiatry Requested blood cultures, as per Dr. Carballo's recommendation PICC line was requested for Zyvox renal dose Most likely he will need PICC line after finalized blood culture report previous wound culture showed Pseudomonas and Alcaligenes faecalis and history of esbl Patient is living alone, independent, uses Podus boots Wet-to-dry dressing, Dakin's solution, Lobo wrap Will request arterial duplex Acute on chronic kidney disease stage IV -monitor hyperkalemia -resolved Diabetic ketoacidosis, resolved High anion gap acidosis likely related to uremia lactic acid in normal -resolved anion gap, and metobolic acidosis -continue insulin sliding scale anemia -likely multifactorial -has evidence of iron deficiency anemia -likely anemia of chronic disease with chronic infection -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 -continue protonix and carafate NSTEMI -likely type 2 nstemi from underlying sepsis and acute renal failure -but cannot rule out underlying cardiac etiology -will order cardiac echo -continue telemetry monitoring -continue aspirin, plavix, statin, and beta sharif In case of further worsening he might need nephro consultation, previous baseline creatinine was 2.6-3 Hypervolemic hyponatremia, resolving Fluid overloaded related to underlying CHF and chronic kidney disease Chronic hypoxia uses 2 L of oxygen at home Diastolic CHF acute exacerbation monitor Continue 2 L of oxygen at this point Looks euvolemic despite elevated bnp order chest xray Full code Diabetic diet DVT prophylaxis heparin and scd Attestations Medical Necessity Statement*: patient requires hospitalization for acute renal failure, sepsis, left foot cellulitis with osteomyelitis, nstemi, acute encephalopathy, hypeglycemia, anemia Coding Level of Care Code Acute Code for [facility] Diagnoses NSTEMI (non-ST elevated myocardial infarction) I21.4 Anemia D64.9 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 L97.423 Chronic osteomyelitis M86.60 Acute renal failure superimposed on stage 4 chronic kidney disease N17.9; N18.4 Hyperkalemia E87.5 Hyponatremia E87.1 Foot ulcer, left L97.529 Cellulitis L03.90 Hyperglycemia R73.9 Edema R60.9 Acute encephalopathy G93.40 Sepsis A41.9
--- NOTE | 2023-01-01 12:21 | ED_ITS ---
HPI - Wound/Laceration General: Chief Complaint: Wound/Laceration Stated Complaint: FOOT INFECTION Time Seen by Provider: 12/31/22 16:34 Source: patient Mode of arrival: EMS PFSH ED PFSH: Medical History Acute diastolic heart failure Acute kidney injury superimposed on CKD Aspiration pneumonia Chronic kidney disease 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 Chronic osteomyelitis Chronic osteomyelitis 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 Chronic ulcer of right foot with fat layer exposed CKD (chronic kidney disease) Congestive heart failure Diabetes Diabetic peripheral neuropathy associated with type 2 diabetes mellitus Diabetic ulcer of foot associated with diabetes mellitus due to underlying condition, with fat layer exposed Elevated troponin Hyperkalemia Hyperkalemia Hyperlipidemia Hypoxia Neuropathy NSTEMI (non-ST elevated myocardial infarction) Onychomycosis of nail of digit of hand PVD (peripheral vascular disease) Type 2 diabetes mellitus Type 2 diabetes mellitus with foot ulcer Uncontrolled type 2 diabetes with neuropathy Surgical History H/O circumcision H/O colonoscopy 7 yrs ago Status post debridement of ulcer of heel Family History Brother Cancer Sister Lung disease Mother Heart failure Father Chronic kidney failure Denies family history of Anesthesia complication Bleeding disorder Social History Smoking and tobacco status: former smoker Second hand smoke exposure: No Alcohol intake: never Adopted: No Lives independently: Yes Marital status: Single Current occupational status: disabled Course Vital Signs: Vital signs: Vital Signs Temperature 97.6 F 01/01/23 08:00 Pulse Rate 85 01/01/23 09:00 Respiratory Rate 16 01/01/23 09:00 Blood Pressure 153/82 01/01/23 08:00 Pulse Oximetry 100 01/01/23 09:00 Oxygen Delivery Me thod 01/01/23 09:00 Oxygen Flow Rate 2 01/01/23 08:00 Fraction of Inspir ed Oxygen 28 01/01/23 09:00 MDM - Wound/Laceration Lab Data 01/01/23 04:25 01/01/23 04:25 Radiology Impressions Foot X-Ray 12/31/22 19:02 IMPRESSION: Increase in extent of sclerotic change within the calcaneus is suspicious for progression of osteomyelitis. Increase in prominence of soft tissue defect overlying the calcaneus can be correlated with progression of ulcer or interval debridement. Chest X-Ray 01/01/23 07:50 IMPRESSION: Chest significantly improved compared to the most recent examination as above. No acute abnormality is identified. Renal Ultrasound 01/01/23 07:50 IMPRESSION: 1. Mild diffuse cortical thinning LEFT kidney and atrophy. Similar to the prior study. 2. No hydronephrosis. Laboratory Results WBC 21.9 10^3/uL (4.0-10.0) H 12/31/22 16:16 RBC 3.42 10^6/uL (4.1-5.3) L 12/31/22 16:16 Hgb 9.2 g/dL (11.7-16.6) L 12/31/22 16:16 Hct 30.2 % (42.0-52.0) L 12/31/22 16:16 MCV 88.3 fl (80-94) 12/31/22 16:16 MCH 26.9 pg (28.0-34.0) L 12/31/22 16:16 MCHC 30.5 g/dL (30.0-36.0) 12/31/22 16:16 RDW 16.3 % (12.1-15.1) H 12/31/22 16:16 Plt Count 191 10^3/cmm (130-400) 12/31/22 16:16 MPV 12.3 fL (7.4-10.4) H 12/31/22 16:16 Neut % (Auto) 91.2 % 12/31/22 16:16 Lymph % (Auto) 3.8 % 12/31/22 16:16 [place] % (Auto) 3.7 % 12/31/22 16:16 Eos % (Auto) 0.0 % 12/31/22 16:16 Baso % (Auto) 0.2 % 12/31/22 16:16 Neut # (Auto) 19.96 10^3/uL (1.8-7.7) H 12/31/22 16:16 Lymph # (Auto) 0.8 10^3/uL (0.8-4.8) 12/31/22 16:16 [place] # (Auto) 0.8 10^3/uL (0.2-0.9) 12/31/22 16:16 Eos # (Auto) 0.0 10^3/uL (0.0-0.8) 12/31/22 16:16 Baso # (Auto) 0.1 10^3/uL (0.0-0.1) 12/31/22 16:16 Nucleated RBC % (auto) 0 % 12/31/22 16:16 Nucleated RBCs # 0.0 /100WBC 12/31/22 16:16 ESR 61 mm/hr (0-10) H 12/31/22 16:16 Sodium 125 mmol/L (136-145) L 12/31/22 16:16 Potassium 5.9 mmol/L (3.5-5.1) H 12/31/22 16:16 Chloride 92 mmol/L (98-107) L 12/31/22 16:16 Carbon Dioxide 13 mmol/L (22-29) L 12/31/22 16:16 Anion Gap 25.9 (5-19) H 12/31/22 16:16 BUN 55 mg/dL (6-20) H 12/31/22 16:16 Creatinine 4.6 mg/dL (0.7-1.2) H 12/31/22 16:16 GFR Calculation 13.3 mL/min (90-130) L 12/31/22 16:16 Glucose 549 mg/dL (65-115) H* 12/31/22 16:16 POC Glucose 574 mg/dL (70-110) H* 12/31/22 16:42 Estimat Average Glucose 203 12/31/22 16:16 Hemoglobin A1c 8.7 % (4.0-6.0) H 12/31/22 16:16 Calculated Osmolality 300 mOsm/kg (285-295) H 12/31/22 16:16 Lactate 1.1 mmol/L (0.5-2.2) 12/31/22 17:00 Calcium 8.6 mg/dL (8.5-10.5) 12/31/22 16:16 Total Bilirubin 0.5 mg/dL (0.15-1.2) 12/31/22 16:16 AST 11 U/L (0-40) 12/31/22 16:16 ALT 6 U/L (0-41) 12/31/22 16:16 Alkaline Phosphatase 160 U/L (40-130) H 12/31/22 16:16 NT-Pro-B Natriuret Pep > 31686 pg/mL (0-125) H 12/31/22 16:16 Total Protein 7.3 g/dL (6.6-8.7) 12/31/22 16:16 Albumin 3.3 g/dL (3.5-5.2) L 12/31/22 16:16 Globulin 4.0 g/dL (1.3-4.6) 12/31/22 16:16 Procalcitonin 0.61 ng/mL (0-0.5) H 12/31/22 16:16 Urine Color Yellow (Yellow) 12/31/22 18:20 Urine Appearance Sl hazy (CLEAR) A 12/31/22 18:20 Urine pH 5 (5-7) 12/31/22 18:20 Ur Specific [place]opus 1.015 (1.005-1.030) 12/31/22 18:20 Urine Protein 3+ (Negative) H 12/31/22 18:20 Urine Glucose (UA) 4+ (Normal) H 12/31/22 18:20 Urine Ketones 1+ (Negative) H 12/31/22 18:20 Urine Blood 2+ (Negative) H 12/31/22 18:20 Urine Nitrate Negative (Negative) 12/31/22 18:20 Urine Bilirubin Neg (Negative) 12/31/22 18:20 Urine Urobilinogen Neg mg/dL (Negative) 12/31/22 18:20 Ur Leukocyte Esterase Negative (Negative) 12/31/22 18:20 Urine RBC 5-10 /hpf (0-2) H 12/31/22 18:20 Urine WBC 0-4 /hpf (0-5) H 12/31/22 18:20 Ur Squamous Epith Cells 0-4 /hpf (0-5) H 12/31/22 18:20 Amorphous Sediment 2+ /hpf 12/31/22 18:20 Urine Bacteria 1+ /hpf (NONE) H 12/31/22 18:20 Hyaline Casts 0-4 /lpf H 12/31/22 18:20 Fine Granular Casts 0-4 /lpf H 12/31/22 18:20 Serum Ketones Positive (Negative) H 12/31/22 16:16 Discharge Plan Discharge Patient Disposition: Admitted As Inpatient Admit Provider: Abisai Maddox Clinical Impression: Foot ulcer, left, Cellulitis, Hyperglycemia Condition: Stable Coding Level of Care Code ED Financial Reporting Manager for Blaise Beckett
--- NOTE | 2023-01-01 12:22 | USCV_ITS ---
Juan A Robisonsaravananbam Age: 57 Gender: M : 1965 Exam Date: 01/01/2023 15:21 Ordering Phys: Luciano Mariscal MD Technologist: GRETCHEN Exam Location: [facility] [place] Indication: NSTEMI BP: 118 / 68 HR: 62 Rhythm: Sinus Technical Quality: Adequate MEASUREMENTS (Male / Female) Normal Values 2D ECHO LVOT Diameter 2.0 cm LV Ejection Fraction MOD 2C 51.8 % LV Ejection Fraction 2C AL 53.1 % LA Diameter 4.2 cm LA Width 3.8 cm LA Height 4.7 cm RA Width 4.3 cm RA Height 3.9 cm Aorta at Sinotubular Diameter 2.7 cm M-MODE Aortic Annulus Diameter 3.4 cm LA Ao Ratio MM 1.1 MV E Point Septal Separation 1.0 cm FINDINGS Left Ventricle Diffuse hypokinesia of the anteroseptum and LV apex. Echodensity in the apical region, suggesting organized thrombus. LV ejection fraction [id number]%(visual) Right Ventricle Right Atrium Left Atrium Mitral Valve Aortic Valve Tricuspid Valve Pulmonic Valve Pericardium No pericardial effusion. Aorta IVC CONCLUSIONS Normal LV size with an ejection fraction of 50%. Wall motion abnormality as mentioned above. Possible LV apical thrombus. Compared to the study from 11/29/2022 the LV ejection fraction appears to have diminished. Because of the difference of the technical quality, cannot comment on the apical abnormality. Suggest contrast echo to better evaluate the LV apex Dr Laurita Love MD FAC (Electronically Signed) Final Date: 01 January 2023 23:06 S
--- NOTE | 2023-01-01 12:22 | PM.CONSULT ---
Providers/Reason For Consult Consulting Physician/Specialty*: Castro Georges.P.M./podiatry Reason for Consult*: Bilateral foot wounds, concern for sepsis Attending Physician: Luciano Mariscal MD Primary Care Provider: SERAFIN Reza History of Present Illness History of Present Illness Tim Robison is a 57 year old male who is known to the podiatry service for bilateral lower extremity wounds. Patient has left heel ulceration with chronic osteomyelitis that he has been dealing with for years. Patient has multiple other comorbidities such as diastolic heart failure, CKD, DM 2. He has been on and off of antibiotics throughout the duration of his left heel ulceration. He was most recently seen by Dr. Carballo in wound care on 12/26/2022 where recommendation was given for PICC line. The patient had not received a PICC line prior to his presentation to the emergency department. The patient was receiving home health where they were helping patient with daily dressing changes which included drawtex, Hydralock daily. Patient states that home health has been discontinued at this time and he has been trying to manage the dressings himself in addition to wound care. He noticed that his wound site continue to increase in drainage over the course of the past week. Due to the increased drainage he presented to the emergency department via EMS for evaluation. Upon presentation to the emergency department he was found to be leukocytotic with a count of 21.9 and a blood glucose of 549 mg/dL. Podiatry was consulted to evaluate left heel wound as well as right foot wound to determine if any surgical wound debridement is needed during this admission. Since his admission his leukocytosis has improved with the IV antibiotic therapy. Review of Systems General: Reports: 10 or more systems reviewed and unremarkable except in HPI and below Const: Denies: fever(s), chills, body aches or change in appetite Eyes: Denies: change in vision or blurry vision Card: Denies: chest pain, palpitations or irregular heart rhythm Resp: Denies: dyspnea GI: Denies: abdominal pain, nausea, vomiting or diarrhea Musc: Reports: joint stiffness Skin/Breast: Reports: non-healing lesions and lesions Neuro: Reports: numbness in extremities Medications/Allergies Home Medications Medication Instructions Recorded Confirmed Last Taken Type amlodipine 10 mg tablet 10 mg PO QAM 10/11/20 12/31/22 12/30/22 History gabapentin 300 mg capsule 300 mg PO BEDTIME 10/11/20 12/31/22 12/30/22 History cyanocobalamin (vitamin B-12) 1,000 mcg IM Q30D 10/30/21 12/31/22 Unknown History 1,000 mcg/mL injection solution fluticasone 100 mcg-salmeterol 50 1 inh inhalation BID #60 ea 11/02/21 12/31/22 12/30/22 Rx mcg/dose blistr powdr for inhalation (Advair Diskus) insulin lispro 100 unit/mL See Rx Instructions .Route 11/02/21 12/31/22 Unknown Rx subcutaneous pen (Humalog KwikPen .COMPLEX #0 mL (U-100) Insulin) omeprazole 40 mg capsule,delayed 40 mg PO DAILY 04/16/22 12/31/22 12/30/22 History release blood-glucose meter,continuous #1 ea 04/23/22 12/31/22 Unknown Rx (Dexcom G6 Electronic Sales And Service Technician) blood-glucose sensor (Dexcom G6 #9 ea 04/23/22 12/31/22 Unknown Rx Sensor device) blood-glucose transmitter (Dexcom #3 ea 04/23/22 12/31/22 Unknown Rx G6 Transmitter device) albuterol sulfate 90 mcg/actuation 1 puff inhalation Q6H PRN 11/29/22 12/31/22 Unknown History aerosol inhaler shortness of breath or wheezing atorvastatin 40 mg tablet 40 mg PO BEDTIME 11/29/22 12/31/22 12/30/22 History famotidine 20 mg tablet 20 mg PO BID 11/29/22 12/31/22 12/30/22 History metoprolol tartrate 100 mg tablet 100 mg PO BID 11/29/22 12/31/22 12/30/22 History pregabalin 200 mg capsule (Lyrica) 200 mg PO TID 11/29/22 12/31/22 12/30/22 History Podus Boot to the Left #1 ea 12/03/22 12/31/22 Unknown Rx aspirin 81 mg chewable tablet 81 mg PO QAM #60 tabs 12/06/22 12/31/22 12/30/22 Rx clopidogrel 75 mg tablet (Plavix) 75 mg PO DAILY #60 tabs 12/06/22 12/31/22 12/30/22 Rx furosemide 20 mg tablet (Lasix) 20 mg PO DAILY #30 tabs 12/06/22 12/31/22 12/30/22 Rx hydralazine 10 mg tablet 10 mg PO BID #60 tabs 12/06/22 12/31/22 12/30/22 Rx insulin detemir U-100 100 unit/mL 40 unit (0.4 mL) SUBCUT BEDTIME 12/06/22 12/31/22 12/30/22 Rx (3 mL) subcutaneous pen (Levemir #15 mL FlexTouch U-100 Insulin) isosorbide mononitrate 30 mg 30 mg PO DAILY #60 tabs 12/06/22 12/31/22 12/30/22 Rx tablet,extended release 24 hr sodium hypochlorite 0.125 % 1 applic topical DAILY wound #473 12/14/22 12/31/22 Unknown Rx solution (Dakin's Solution) mL metronidazole 500 mg tablet 500 mg PO BID #20 tabs 12/19/22 12/31/22 12/30/22 Rx pantoprazole 40 mg tablet,delayed 40 mg PO DAILY 12/31/22 12/31/22 12/30/22 History release Allergies Allergy/AdvReac Type Severity Reaction Status Date / Time No Known Allergies Allergy Verified 11/29/22 11:09 Current Medications Generic Name Dose Route Start Last Admin Trade Name Freq PRN Reason Stop Dose Admin Aspirin 81 mg 01/01/23 06:00 01/01/23 06:11 Aspirin 81 Mg Chew Tablet PO Not Given QAM KELSEY Atorvastatin Calcium 40 mg 12/31/22 21:00 12/31/22 21:48 Atorvastatin 40 Mg Tablet PO 40 mg BEDTIME KELSEY Administration Bumetanide 1 mg 12/31/22 22:15 12/31/22 23:47 Bumetanide 0.25 Mg/Ml Sdv 4 Ml IVP 1 mg Q12H KELSEY Administration Clopidogrel Bisulfate 75 mg 01/01/23 09:00 01/01/23 09:29 Clopidogrel 75 Mg Tablet PO 75 mg DAILY KELSEY Administration Insulin Human Lispro 0 unit 12/31/22 21:00 01/01/23 09:30 Insulin Lispro 100 Unit/1 Ml SUBCUT 12 unit WM&BEDTIME KELSEY Administration Protocol Isosorbide Mononitrate 30 mg 01/01/23 09:00 01/01/23 09:29 Isosorbide Mononitrate Er 30 Mg Tablet PO 30 mg DAILY KELSEY Administration Metoprolol Tartrate 100 mg 01/01/23 09:00 01/01/23 09:29 Metoprolol Tartrate 50 Mg Tablet PO 100 mg BID KELSEY Administration Pantoprazole Sodium 40 mg 01/01/23 08:00 01/01/23 09:51 Pantoprazole 40 Mg Sdv IVP 40 mg Q12H KELSEY Administration Sodium Bicarbonate 650 mg 01/01/23 09:00 01/01/23 09:30 Sodium Bicarbonate 650 Mg Tablet PO 650 mg TID KELSEY Administration Sucralfate 1 gm 01/01/23 08:00 01/01/23 09:33 Sucralfate 1 Gm Tablet PO 1 gm Q12H KELSEY Administration PFSH Acute PFSH: Medical History (Updated 01/01/23 @ 12:56 by Umberto Cárdenas DPM) Acute diastolic heart failure Acute kidney injury superimposed on CKD Aspiration pneumonia Chronic kidney disease 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 Chronic osteomyelitis Chronic osteomyelitis 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 Chronic ulcer of right foot with fat layer exposed CKD (chronic kidney disease) Congestive heart failure Diabetes Diabetic peripheral neuropathy associated with type 2 diabetes mellitus Diabetic ulcer of foot associated with diabetes mellitus due to underlying condition, with fat layer exposed Elevated troponin Hyperkalemia Hyperkalemia Hyperlipidemia Hypoxia Neuropathy NSTEMI (non-ST elevated myocardial infarction) Onychomycosis of nail of digit of hand PVD (peripheral vascular disease) Type 2 diabetes mellitus Type 2 diabetes mellitus with foot ulcer Uncontrolled type 2 diabetes with neuropathy Surgical History H/O circumcision H/O colonoscopy 7 yrs ago Status post debridement of ulcer of heel Family History Brother Cancer Sister Lung disease Mother Heart failure Father Chronic kidney failure Denies family history of Anesthesia complication Bleeding disorder Social History Smoking and tobacco status: former smoker Second hand smoke exposure: No Alcohol intake: never Adopted: No Lives independently: Yes Marital status: Single Current occupational status: disabled Vitals/I&O/Wt Last Vital Signs Temp 97.6 F 01/01/23 08:00 Pulse 85 01/01/23 09:00 Resp 16 01/01/23 09:00 BP 153/82 01/01/23 08:00 Pulse Ox 100 01/01/23 09:00 O2 Del Method 01/01/23 09:00 O2 Flow Rate 2 01/01/23 08:00 FiO2 28 01/01/23 09:00 12/31/22 01/01/23 01/01/23 22:59 06:59 14:59 Intake Total 308.333 / 308.333 50 / 50 Output Total 800 / 800 300 / 300 Balance 308.333 / 308.333 -800 / -491.667 -250 / -250 Weight last 48 hrs Weight 280 lb Physical Exam Narrative: BELOW IS A FOCUSED LOWER EXTREMITY EXAM GENERAL: A&O x 3 VASCULAR: DP/PT pulses palpable +2 with CFT intact, <3seconds to distal digits. Bilateral lower extremity edema left worse than right with +2 pitting edema to the left foot and leg DERMATOLOGICAL: Full-thickness ulceration plantar aspect left heel as well as plantar aspect right foot Wound #1 Location: Plantar left heel mild surrounding erythema Size: 5.0 x 5.2 x 0.4 cm Undermining: Distal undermining 0.3 cm Tracking: Negative Probe to bone: Positive probe to bone, calcaneus exposed Borders: Macerated Base: 50% fibrotic, 50% granular Drainage: Active serous drainage Malodor: Negative Wound #2 Location: Plantar right fifth metatarsal head Size: 1.0 x 1.0 x 0.8 cm Undermining: Negative Tracking: Negative Probe to bone: Positive Borders: Hyperkeratotic rim Base: 100% fibrotic Drainage: Negative Malodor: Negative MUSCULOSKELETAL: Ankle joint and hindfoot range of motion within normal limits bilaterally. No tenderness with palpation of medial, lateral or anterior ankle bilaterally. No tenderness with palpation of lateral ankle ligaments bilaterally. No pain with palpation of midfoot bilaterally. 5/5 muscle strength in all 4 quadrants of the lower extremity when tested against resistance. NEUROLOGICAL: Neurological sensation to the affected foot and ankle is diminished through L4-S1 dermatomes via 10g SWMF, diminished sensation extends proximally to the level of the ankle Urinary Catheter Management: Reyes: Cath Placed During This Visit: yes Reason for Continuing Indwelling Catheter: Acute Urinary Retention or Obstruction Urinary Catheter Date of Insertion: 12/31/22 Urinary Catheter Time of Insertion: 23:40 Data 01/01/23 04:25 01/01/23 04:25 Micro: Microbiology 12/31/22 17:05 Blood Culture - Preliminary Blood SPECIMEN COLLECTED 12/31/22 17:00 Blood Culture - Preliminary Blood SPECIMEN COLLECTED A&P Assessment and plan (1) Chronic osteomyelitis: (2) 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: (3) Chronic ulcer of right foot with fat layer exposed: (4) Cellulitis: Plan Mr. Robison is a 57-year-old male with history of chronic diabetic foot ulcers bilaterally. His left heel ulceration has calcaneus exposed with chronic osteomyelitis. He also has CKD and heart failure. He has been following up with wound care on a regular basis and according to the patient he has been discharged from home health. He has been doing daily dressing changes using Dakin's, Hydrofera Blue dry sterile dressing. Due to his worsening wounds he presented to the ER for evaluation where he was admitted to the hospital for IV antibiotics and further evaluation. Upon evaluation of the patient he does have mild cellulitis surrounding left calcaneus wound however, I do not believe that this is the source of the patient's leukocytosis of 21,000. His right foot wound although it probes to bone as well remained stable. Likely that patient's source of leukocytosis could be contributed to by the foot but unlikely primary source. As far as left heel chronic osteomyelitis is concerned, wide excisional debridement with partial calcanectomy with free flap versus graft would be patient's best chance of healing wound. However, this would require a multidisciplinary approach and would have a high chance of failure given patient's concomitant comorbidities. Clinical and lab findings WBC 15.5 ESR 61 CRP 135.9 Temp 97.6 Heart rate 84 Respiration rate 19 IMAGING: Right foot erosive changes of metatarsophalangeal joints are consistent with psoriatic arthritis pencil in cup deformity. Fifth metatarsophalangeal joint likely due to combination of psoriatic arthritis and osteomyelitis (chronic) no subcutaneous emphysema noted on left foot x-ray taken on 12/31/2022 Recommendations -Okay for diet from podiatry standpoint -No surgical intervention during this admission -Bedside wound debridement to be performed by podiatry at which point cultures will be obtained of deep tissue and sent to micro for ID and sensitivity and determining IV antibiotic regimen -Recommend PICC line and long-term IV antibiotics for chronic osteomyelitis -Recommend twice daily dressing changes using Hydrofera Blue, ABD pad, Kerlix, Lobo -Continue Juzo therapy bilateral lower extremities for edema control -I will continue to follow the patient during this hospital admission and provide recommendations as needed. We will continue to monitor his response to the IV antibiotics -Recommend continued home health as patient is unable to perform daily dressing changes to the extent that they need to be performed Consult Attestations Medical Necessity Statement: Chronic ulceration to bilateral feet. Requiring IV antibiotic therapy Coding Level of Care Code Acute Code for [facility] Fw Diagnoses Chronic osteomyelitis M86.60 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 L97.423 Chronic ulcer of right foot with fat layer exposed L97.512 Cellulitis L03.90
--- NOTE | 2023-01-01 13:52 | ECG_ITS ---
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 Measurements Intervals [place] Rate: 84 P: 25 MO: 161 QRS: 132 QRSD: 134 T: 28 QT: 380 QTc: 452 Interpretive Statements SINUS RHYTHM RIGHT BUNDLE BRANCH BLOCK [120+ ms QRS DURATION, UPRIGHT V1, 40+ ms S IN I/aVL/V4/V5/V6] LEFT POSTERIOR FASCICULAR BLOCK [QRS AXIS > 109, INFERIOR Q] Compared to ECG 12/31/2022 17:07:57 Left posterior fascicular block now present Sinus tachycardia no longer present Right-axis deviation no longer present Electronically Signed On 01-01-2023 11:54:48 CDT by Davin Diaz M.D. [email or web address]
--- NOTE | 2023-01-01 15:59 | PM.ACPR ---
Procedure/Consent Consent: Additional Consent Information: Left foot heel wound excisional wound debridement Procedure Narrative: Patient is a 57-year-old male with chronic left heel diabetic ulcer with chronic osteomyelitis and bone exposed. Fibrotic nature of wound necessitates bedside debridement. Both written and verbal consent were obtained for left foot excisional wound debridement. After verbal and written consent was obtained, a dermal curette was used to perform excisional debridement down to the level of bone. All visualized fibrotic tissue was removed and remaining wound bed appeared healthy and viable in nature. No deep tissue tracks or deep space abscess was visualized or appreciated on exam. No purulence. Minimal serous drainage. Deep tissue cultures aerobic and anaerobic were taken after debridement and sent to micro for ID and sensitivity. Hemostasis was noted to be achieved and the wound was dressed with Hydrofera Blue, ABD pad, Kerlix and Lobo wrap. Patient tolerated the procedure well and without complication. Cultures obtained during debridement will help determine IV antibiotics for discharge.
[2023-01-01 16:13] LABS: Hemoglobin 7.7 g/dL (11.7-16.6)
[2023-01-01 17:30] LABS: Glucose Point of Care 129 mg/dL (70-110)
[2023-01-01] MEDS: atorvastatin 40 mg Tablet PO (20:27)
[2023-01-01] MEDS: heparin 5,000 unit/mL INJ 1 mL 5000 UNIT SUBCUT (20:27)
[2023-01-01 20:59] LABS: Glucose Point of Care 269 mg/dL (70-110)
[2023-01-02] VITALS (11 sets, daily range): BP systolic 102–146; BP diastolic 55–78; PULSE 59–81; RESP 15–16; TEMP 36.4–36.7; O2SAT 94–98
[2023-01-02] MEDS: aspirin 81 mg Chew Tablet PO (05:01)
[2023-01-02 05:17] LABS: Basophils # 0.1 10^3/uL (0.0-0.1); Basophils % 0.4 %; Eosinophils # 0.5 10^3/uL (0.0-0.8); Eosinophils % 4.5 %; Hemoglobin 8.3 g/dL (11.7-16.6); Lymphocytes # 0.9 10^3/uL (0.8-4.8); Lymphocytes % 7.9 %; Mean Corpuscular HGB Conc 29.6 g/dL (30.0-36.0); Mean Corpuscular Hemoglobin 25.9 pg (28.0-34.0); Mean Corpuscular Volume 87.5 fl (80-94); Mean Platelet Volume 12.2 fL (7.4-10.4); Monocytes # 0.8 10^3/uL (0.2-0.9); Neutrophils # 9.03 10^3/uL (1.8-7.7); Neutrophils % 79.5 %; Nucleated Red Blood Cells % 0 %; Platelet Count 147 10^3/cmm (130-400); Red Cell Distribution Width 16.8 % (12.1-15.1); White Blood Count 11.4 10^3/uL (4.0-10.0)
--- NOTE | 2023-01-02 05:20 | PC.NURSE ---
Unwrapped dressing on left foot and irrigated with normal saline before applying hydrofera blue, abd pad, kerlix, and jason wrap. Wound bed appears clean with macerated edges, with a small amount of brown drainage present on the previous dressing. No odor present. Unwrapped dressing on the right foot and irrigated with normal saline before applying 4x4 sponge, kerlix, and jason wrap. Wound bed appeared clean with macerated but well defined edges. No odor present. A small amount of brown drainage was present on the previous dressing. Patient tolerated both dressings well without complaints of pain. Bilateral extremities remain +4 pitting edema, cool to the touch. Patient able to hold his legs in the air while the kerlix and jason wrap were applied without difficulty. Dressings were changed at 0516.
[2023-01-02 05:45] LABS: Procalcitonin 0.66 ng/mL (0-0.5)
[2023-01-02 05:57] LABS: Anion Gap 14.1 (5-19); Blood Urea Nitrogen 55 mg/dL (6-20); C Reactive Protein 111.5 mg/L (0.0-4.9); Calcium 7.9 mg/dL (8.5-10.5); Carbon Dioxide 22 mmol/L (22-29); Chloride 103 mmol/L (98-107); Glomerular Filtration Rate 13.7 mL/min (90-130); Glucose 205 mg/dL (65-115); Magnesium 2.3 mg/dL (1.7-2.3); Osmolality Calculated 299 mOsm/kg (285-295); Potassium 5.1 mmol/L (3.5-5.1); Sodium 134 mmol/L (136-145)
[2023-01-02 06:06] LABS: NT Pro B Type Natriuretic Pept 55581 pg/mL (0-125)
[2023-01-02 06:50] LABS: Glucose Point of Care 230 mg/dL (70-110)
--- NOTE | 2023-01-02 07:00 | XR_ITS ---
WS: [id number] XR chest 1V portable [id number] REASON FOR EXAM: sob FINDINGS: Since the previous examination of 01/01/2023, 7:23 AM, there has been interval development of reticular interstitial lung opacities in the right lower lung field. No other significant interval change or new finding is noted compared to previous study. XR/XR chest 1V portable [id number] IMPRESSION: Interval development of lung opacities. Rather rapid development, however, the finding is focal and more suggestive of pneumonitis. Aspiration could be consid ered in the appropriate clinical setting..
--- NOTE | 2023-01-02 07:49 | P.PN_ITS ---
Subjective Subjective: Patient seen at bedside this morning. Doing well. Denies any overnight events. States that he is feeling much better. He states that he does not want to have to go to home if he does not have to. He has had home infusions for the PICC line in the past. He is wondering if home health can continue to assist him with dressing changes and home infusions so that he can recover at home. Vitals/I&O/Wt Last Vital Signs Temp 97.7 F 01/02/23 03:44 Pulse 81 01/02/23 06:31 Resp 15 01/02/23 03:44 BP 102/55 01/02/23 03:44 Pulse Ox 97 01/02/23 03:44 O2 Del Method 01/02/23 03:44 O2 Flow Rate 2 01/02/23 03:44 FiO2 28 01/01/23 09:00 01/01/23 01/02/23 01/02/23 22:59 06:59 14:59 Intake Total 290 / 340.1 Output Total 350 / 650 200 / 850 Balance -60 / -309.9 -200 / -509.9 Weight last 48 hrs Weight 280 lb Physical Exam Narrative: BELOW IS A FOCUSED LOWER EXTREMITY EXAM GENERAL: A&O x 3 VASCULAR: DP/PT pulses palpable +2 with CFT intact, <3seconds to distal digits. Bilateral lower extremity edema left worse than right with +2 pitting edema to the left foot and leg DERMATOLOGICAL: Full-thickness ulceration plantar aspect left heel as well as plantar aspect right foot Wound #1 Location: Plantar left heel mild surrounding erythema Size: 5.0 x 5.2 x 0.4 cm Undermining: Distal undermining 0.3 cm Tracking: Negative Probe to bone: Positive probe to bone, calcaneus exposed Borders: Macerated Base: 90% granular 10% fibrotic Drainage: Active serous drainage Malodor: Negative Wound #2 Location: Plantar right fifth metatarsal head Size: 1.0 x 1.0 x 0.8 cm Undermining: Negative Tracking: Negative Probe to bone: Positive Borders: Hyperkeratotic rim Base: 100% fibrotic Drainage: Negative Malodor: Negative MUSCULOSKELETAL: Ankle joint and hindfoot range of motion within normal limits bilaterally. No tenderness with palpation of medial, lateral or anterior ankle bilaterally. No tenderness with palpation of lateral ankle ligaments bilaterally. No pain with palpation of midfoot bilaterally. 5/5 muscle strength in all 4 quadrants of the lower extremity when tested against resistance. NEUROLOGICAL: Neurological sensation to the affected foot and ankle is diminished through L4-S1 dermatomes via 10g SWMF, diminished sensation extends proximally to the level of the ankle Urinary Catheter Management: Reyes: Cath Placed During This Visit: yes Reason for Continuing Indwelling Catheter: Acute Urinary Retention or Obstruction Urinary Catheter Date of Insertion: 12/31/22 Urinary Catheter Time of Insertion: 23:40 Data 01/02/23 05:02 01/02/23 05:02 Micro: Microbiology 12/31/22 17:05 Blood Culture - Preliminary Blood NEGATIVE TO DATE 12/31/22 17:00 Blood Culture - Preliminary Blood NEGATIVE TO DATE A&P Assessment and plan (1) Chronic osteomyelitis: (2) 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: (3) Chronic ulcer of right foot with fat layer exposed: (4) Cellulitis: Plan Mr. Robison is a 57-year-old male with history of chronic diabetic foot ulcers bilaterally. His left heel ulceration has calcaneus exposed with chronic osteom yelitis. He also has CKD and heart failure. He has been following up with wound care on a regular basis and according to the patient he has been discharged from home health. He has been doing daily dressing changes using Dakin's, Hydrofera Blue dry sterile dressing. Due to his worsening wounds he presented to the ER for evaluation where he was admitted to the hospital for IV antibiotics and further evaluation. Upon evaluation of the patient he does have mild cellulitis surrounding left calcaneus wound however, I do not believe that this is the source of the patient's leukocytosis of 21,000. His right foot wound although it probes to bone as well remained stable. Likely that patient's source of leukocytosis could be contributed to by the foot but unlikely primary source. As far as left heel chronic osteomyelitis is concerned, wide excisional debridement with partial calcanectomy with free flap versus graft would be patient's best chance of healing wound. However, this would require a multidisciplinary approach and would have a high chance of failure given patient's concomitant comorbidities. Clinical and lab findings WBC 15.5-->11.4 ESR 61 CRP 135.9 VSS IMAGING: Right foot erosive changes of metatarsophalangeal joints are consistent with psoriatic arthritis pencil in cup deformity. Fifth metatarsophalangeal joint likely due to combination of psoriatic arthritis and osteomyelitis (chronic) no subcutaneous emphysema noted on left foot x-ray taken on 12/31/2022 CULTURES: Outpatient wound cultures from 12/19/2022 from left heel show Pseudomonas and a faecalis both sensitive to gentamicin Recommendations -Okay for diet from podiatry standpoint -No surgical intervention during this admission -Patient underwent bedside wound debridement of left heel yesterday/01/20. See procedure note for details -Recommend PICC line and long-term IV antibiotics for chronic osteomyelitis -Recommend daily dressing change with Hydrofera Blue, ABD, Kerlix, Lobo -Continue Juzo therapy bilateral lower extremities for edema control -I will continue to follow the patient during this hospital admission and provide recommendations as needed. We will continue to monitor his response to the IV antibiotics -Recommend continued home health as patient is unable to perform daily dressing changes to the extent that they need to be performed. I am okay with home health and home infusions -Patient will be okay to discharge from podiatry standpoint once PICC line is placed and patient has post discharge care established. He will follow-up closely with me in the office as well as at wound care with Dr. Carballo Attrudyations Medical Necessity Statement*: Bilateral diabetic foot wounds. Patient needs PICC line placement Coding Level of Care Code Acute Code for [facility] Fw Diagnoses Chronic osteomyelitis M86.60 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 L97.423 Chronic ulcer of right foot with fat layer exposed L97.512 Cellulitis L03.90
--- NOTE | 2023-01-02 08:03 | USCV_ITS ---
Tim Robison Age: 57 Gender: M : 1965 Exam Date: 01/02/2023 11:05 Ordering Phys: Luciano Mariscal MD Technologist: CT Exam [place] [facility] [place] Indication: wall motion/organized thrombus BP: 143 / 76 HR: 64 Rhythm: Sinus Technical Quality: Adequate MEASUREMENTS (Male / Female) Normal Values 2D ECHO LV Diastolic Diameter PLAX 3.5 cm 4.2 - 5.9 / 3.9 - 5.3 cm LV Systolic Diameter PLAX 2.6 cm IVS Diastolic Thickness 1.6 cm 0.6 - 1.0 / 0.6 - 0.9 cm IVS Systolic Thickness 2.0 cm LVPW Diastolic Thickness 1.6 cm 0.6 - 1.0 / 0.6 - 0.9 cm LVPW Systolic Thickness 1.7 cm LVOT Diameter 2.0 cm LV Ejection Fraction 2D Teich 48.9 % LV Ejection Fraction MOD 2C 59.9 % LV Ejection Fraction 2C AL 59.1 % LA Diameter 4.8 cm Aorta at Sinotubular Diameter 3.1 cm M-MODE MV E Point Septal Separation 0.7 cm FINDINGS Left Ventricle Right Ventricle Right Atrium Left Atrium Mitral Valve Aortic Valve Tricuspid Valve Pulmonic Valve Pericardium Aorta IVC CONCLUSIONS LV systolic function is normal with EF of 50-55%. No regional wall motion abnormalities seen No evidence of LV thrombus. Davin Diaz MD (Electronically Signed) Final Date: 16 January 2023 08:50 S
[2023-01-02] MEDS: sucralfate 1 gm Tablet PO ×2 (08:32→21:03)
[2023-01-02] MEDS: docusate sodium 100 mg Capsule PO ×2 (08:32→18:06)
[2023-01-02] MEDS: sodium bicarbonate 650 mg Tablet PO ×3 (08:32→21:03)
[2023-01-02] MEDS: metoprolol tartrate 50 mg Tablet 100 MG PO ×2 (08:32→18:06)
[2023-01-02] MEDS: isosorbide mononitrate ER 30 mg Tablet PO (08:32)
[2023-01-02] MEDS: clopidogrel 75 mg Tablet PO (08:32)
[2023-01-02] MEDS: pantoprazole 40 mg SDV IVP ×2 (08:33→21:02)
[2023-01-02] MEDS: insulin lispro 100 unit/1 mL SUBCUT ×4 (08:33→21:04)
[2023-01-02] MEDS: polyethylene glycol 3350 Pkt 17 gm PO (08:33)
[2023-01-02] MEDS: meropenem 1,000 MG in sodium chloride 0.9% (plus) 50 ML 100 MG IV ×2 (08:40→21:16)
[2023-01-02] MEDS: heparin drip 25,000 UNIT/500 ML PREMIX 91.44 UNIT IV (09:43)
[2023-01-02 11:53] LABS: Glucose Point of Care 258 mg/dL (70-110)
[2023-01-02] MEDS: perflutren protein-a microsphr 0.22 mg/mL SDV 3 mL IV (12:27)
[2023-01-02 12:49] LABS: Hematocrit 28.8 % (42.0-52.0); Hemoglobin 8.7 g/dL (11.7-16.6)
--- NOTE | 2023-01-02 14:01 | PM.PN ---
Subjective Subjective: Patient was seen this morning, he is feeling well, denies any fevers, no chills, no chest pain, no palpitations Vitals/I&O/Wt Last Vital Signs Temp 97.5 F L 01/02/23 12:00 Pulse 64 01/02/23 12:00 Resp 16 01/02/23 12:00 BP 144/75 01/02/23 12:00 Pulse Ox 97 01/02/23 12:00 O2 Del Method 01/02/23 12:00 O2 Flow Rate 2 01/02/23 08:45 FiO2 28 01/01/23 09:00 01/01/23 01/02/23 01/02/23 22:59 06:59 14:59 Intake Total 290 / 340.1 230 / 230 Output Total 350 / 650 200 / 850 Balance -60 / -309.9 -200 / -509.9 230 / 230 Weight last 48 hrs Weight 127.006 kg Physical Exam Const: COMMON NORMALS: no acute distress and patient oriented x3 Resp: COMMON NORMALS: normal respiratory effort, No retractions, No use of accessory muscles and clear to auscultation bilaterally AUSCULTATION: clear to auscultation bilaterally Cardio: COMMON NORMALS: regular rate, regular rhythm, S1 normal heart sound present and S2 normal heart sound present RATE: regular rate RHYTHM: regular rhythm HEART SOUNDS: S1 normal heart sound present and S2 normal heart sound present GI: COMMON NORMALS: Normal to inspection, nondistended, normoactive bowel sounds present and non-tender Extremity: NARRATIVE EXTREMITY EXAM: Bilateral lower extremity wrapped Neuro: COMMON NORMALS: patient oriented x3 Psych: COMMON NORMALS: mental status grossly normal Urinary Catheter Management: Reyes: Cath Placed During This Visit: yes Reason for Continuing Indwelling Catheter: Acute Urinary Retention or Obstruction Urinary Catheter Date of Insertion: 12/31/22 Urinary Catheter Time of Insertion: 23:40 Data 01/02/23 12:23 01/02/23 05:02 Micro: Microbiology 12/31/22 17:05 Blood Culture - Preliminary Blood NEGATIVE TO DATE 12/31/22 17:00 Blood Culture - Preliminary Blood NEGATIVE TO DATE A&P Assessment and plan (1) NSTEMI (non-ST elevated myocardial infarction): (2) Anemia: (3) 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: (4) Chronic osteomyelitis: (5) Acute renal failure superimposed on stage 4 chronic kidney disease: (6) Hyperkalemia: (7) Hyponatremia: (8) Foot ulcer, left: (9) Cellulitis: (10) Hyperglycemia: (11) Edema: (12) Acute encephalopathy: (13) Sepsis: Plan Acute encephalopathy, resolved -secondary to sepsis -cellulitis Cellulitis with Chronic osteomyelitis Significant leukocytosis No active sepsis signs Patient is afebrile Normal lactic acid Start broad-spectrum renally dosed antibiotics history of esbl coutinue vancomycin switch to meropenem consult podiatry, no acute interventions Requested blood cultures, as per Dr. Carballo's recommendation PICC line was requested for Zyvox renal dose Most likely he will need PICC line, after blood cultures negative 48 hours, previous wound culture showed Pseudomonas and Alcaligenes faecalis and history of esbl Patient is living alone, independent, uses Podus boots Wet-to-dry dressing, Dakin's solution, Lobo wrap Acute on chronic kidney disease stage IV -monitor hyperkalemia -resolved Diabetic ketoacidosis, resolved High anion gap acidosis likely related to uremia lactic acid in normal -resolved anion gap, and metobolic acidosis -continue insulin sliding scale anemia -likely multifactorial -has evidence of iron deficiency anemia -likely anemia of chronic disease with chronic infection -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 ?Echodensity in the apical region, suggesting organized thrombus.? ?LV ejection fraction [id number]%(visual) -continue telemetry monitoring -continue aspirin, plavix, statin, and beta sharif Thrombus, -will repeat echo -continue heprain drip -monitor hgb closely In case of further worsening he might need nephro consultation, previous baseline creatinine was 2.6-3 Hypervolemic hyponatremia, resolving Fluid overloaded related to underlying CHF and chronic kidney disease Chronic hypoxia uses 2 L of oxygen at home Diastolic CHF acute exacerbation monitor Continue 2 L of oxygen at this point Looks euvolemic despite elevated bnp order chest xray Full code Diabetic diet DVT prophylaxis heparin and scd Attestations Medical Necessity Statement*: Patient requires hospitalization for possible LV thrombus, NSTEMI, cellulitis Coding Level of Care Code Acute Code for [facility] Diagnoses NSTEMI (non-ST elevated myocardial infarction) I21.4 Anemia D64.9 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 L97.423 Chronic osteomyelitis M86.60 Acute renal failure superimposed on stage 4 chronic kidney disease N17.9; N18.4 Hyperkalemia E87.5 Hyponatremia E87.1 Foot ulcer, left L97.529 Cellulitis L03.90 Hyperglycemia R73.9 Edema R60.9 Acute encephalopathy G93.40 Sepsis A41.9
[2023-01-02] MEDS: pregabalin 100 mg Capsule 200 MG PO ×2 (15:23→21:03)
[2023-01-02 15:51] LABS: Hematocrit 27.1 % (42.0-52.0); Hemoglobin 8.3 g/dL (11.7-16.6)
[2023-01-02 16:05] LABS: Partial Thromboplastin Time 189.7 SECONDS (23.9-36.7)
[2023-01-02 17:13] LABS: Glucose Point of Care 194 mg/dL (70-110)
[2023-01-02] MEDS: benzonatate 100 mg Capsule PO (18:39)
[2023-01-02] MEDS: vancomycin 1,500 MG/300 ML PIGGYBACK 200 MG IV (18:40)
[2023-01-02 19:59] LABS: Hematocrit 28.9 % (42.0-52.0); Hemoglobin 8.8 g/dL (11.7-16.6)
[2023-01-02 20:53] LABS: Glucose Point of Care 222 mg/dL (70-110)
[2023-01-02] MEDS: atorvastatin 40 mg Tablet PO (21:03)
[2023-01-02] MEDS: heparin 5,000 unit/mL INJ 1 mL 5000 UNIT SUBCUT (21:04)
[2023-01-03] VITALS (12 sets, daily range): BP systolic 129–157; BP diastolic 72–95; PULSE 61–77; RESP 14–18; TEMP 36.4–37.1; O2SAT 93–98
[2023-01-03 00:35] LABS: Hematocrit 27.2 % (42.0-52.0); Hemoglobin 8.3 g/dL (11.7-16.6)
[2023-01-03] MEDS: aspirin 81 mg Chew Tablet PO (05:16)
[2023-01-03] MEDS: ipratropium-albuterol 3 mL Neb INHALATION (05:29)
[2023-01-03] MEDS: benzonatate 100 mg Capsule PO ×2 (05:44→20:18)
[2023-01-03 05:57] LABS: Basophils # 0.1 10^3/uL (0.0-0.1); Basophils % 0.5 %; Eosinophils % 10.1 %; Hematocrit 31.7 % (42.0-52.0); Hemoglobin 9.7 g/dL (11.7-16.6); Lymphocytes # 0.9 10^3/uL (0.8-4.8); Lymphocytes % 9.4 %; Mean Corpuscular HGB Conc 30.6 g/dL (30.0-36.0); Mean Corpuscular Hemoglobin 26.8 pg (28.0-34.0); Mean Corpuscular Volume 87.6 fl (80-94); Mean Platelet Volume 12.6 fL (7.4-10.4); Monocytes # 0.7 10^3/uL (0.2-0.9); Monocytes % 7.6 %; Neutrophils # 6.91 10^3/uL (1.8-7.7); Neutrophils % 71.7 %; Nucleated Red Blood Cells % 0 %; Platelet Count 188 10^3/cmm (130-400); Red Blood Count 3.62 10^6/uL (4.1-5.3); Red Cell Distribution Width 16.3 % (12.1-15.1); White Blood Count 9.6 10^3/uL (4.0-10.0)
[2023-01-03 06:26] LABS: Procalcitonin 0.47 ng/mL (0-0.5)
[2023-01-03 06:38] LABS: Anion Gap 15.9 (5-19); Blood Urea Nitrogen 51 mg/dL (6-20); C Reactive Protein 94.3 mg/L (0.0-4.9); Calcium 8.1 mg/dL (8.5-10.5); Carbon Dioxide 22 mmol/L (22-29); Chloride 102 mmol/L (98-107); Glomerular Filtration Rate 16.1 mL/min (90-130); Glucose 166 mg/dL (65-115); Magnesium 2.3 mg/dL (1.7-2.3); Osmolality Calculated 297 mOsm/kg (285-295); Potassium 4.9 mmol/L (3.5-5.1); Sodium 135 mmol/L (136-145)
[2023-01-03 06:53] LABS: NT Pro B Type Natriuretic Pept 38352 pg/mL (0-125)
[2023-01-03 08:04] LABS: Glucose Point of Care 178 mg/dL (70-110)
[2023-01-03 08:13] LABS: Hematocrit 30.6 % (42.0-52.0); Hemoglobin 9.3 g/dL (11.7-16.6)
[2023-01-03] MEDS: heparin 5,000 unit/mL INJ 1 mL 5000 UNIT SUBCUT ×2 (08:39→20:18)
[2023-01-03] MEDS: docusate sodium 100 mg Capsule PO ×2 (08:39→16:47)
[2023-01-03] MEDS: metoprolol tartrate 50 mg Tablet 100 MG PO ×2 (08:39→16:47)
[2023-01-03] MEDS: isosorbide mononitrate ER 30 mg Tablet PO (08:39)
[2023-01-03] MEDS: sodium bicarbonate 650 mg Tablet PO ×3 (08:39→20:18)
[2023-01-03] MEDS: sucralfate 1 gm Tablet PO ×2 (08:39→20:18)
[2023-01-03] MEDS: insulin lispro 100 unit/1 mL SUBCUT ×4 (08:39→21:05)
[2023-01-03] MEDS: clopidogrel 75 mg Tablet PO (08:39)
[2023-01-03] MEDS: pregabalin 100 mg Capsule 200 MG PO ×3 (08:39→20:18)
--- NOTE | 2023-01-03 10:37 | PC.SOCIAL ---
Imm update Imm updated with patient. Copy of page 2 provided. Copy in chart initialed, dated an timed.
[2023-01-03 11:15] LABS: Glucose Point of Care 272 mg/dL (70-110)
[2023-01-03 13:01] LABS: Hemoglobin 9.4 g/dL (11.7-16.6)
--- NOTE | 2023-01-03 15:30 | PM.PN ---
Subjective Subjective: Patient was seen this morning, he has no complaints this morning, no fevers, no chills Vitals/I&O/Wt Last Vital Signs Temp 97.6 F 01/03/23 11:50 Pulse 64 01/03/23 11:50 Resp 16 01/03/23 11:50 BP 157/95 01/03/23 11:50 Pulse Ox 98 01/03/23 11:50 O2 Del Method 01/03/23 11:50 O2 Flow Rate 2 01/03/23 11:50 FiO2 28 01/01/23 09:00 01/03/23 01/03/23 01/03/23 06:59 14:59 22:59 Intake Total 480 / 1680 240 / 240 Output Total 1300 / 2150 Balance -820 / -470 240 / 240 Physical Exam Const: COMMON NORMALS: no acute distress and patient oriented x3 Resp: COMMON NORMALS: normal respiratory effort, No retractions, No use of accessory muscles and clear to auscultation bilaterally AUSCULTATION: clear to auscultation bilaterally Cardio: COMMON NORMALS: regular rate, regular rhythm, S1 normal heart sound present and S2 normal heart sound present RATE: regular rate RHYTHM: regular rhythm HEART SOUNDS: S1 normal heart sound present and S2 normal heart sound present GI: COMMON NORMALS: Normal to inspection, nondistended, normoactive bowel sounds present and non-tender Extremity: COMMON NORMALS: no pedal edema Neuro: COMMON NORMALS: patient oriented x3 Psych: COMMON NORMALS: mental status grossly normal Urinary Catheter Management: Reyes: Cath Placed During This Visit: yes Reason for Continuing Indwelling Catheter: Accurate Measurement of Urinary Output in Critically Ill Patients Urinary Catheter Date of Insertion: 12/31/22 Urinary Catheter Time of Insertion: 23:40 Data 01/03/23 12:19 01/03/23 05:40 Micro: Microbiology 01/01/23 15:55 Gram Stain - Final Other Source Wound Culture - Preliminary A&P Assessment and plan (1) NSTEMI (non-ST elevated myocardial infarction): (2) Anemia: (3) 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: (4) Chronic osteomyelitis: (5) Acute renal failure superimposed on stage 4 chronic kidney disease: (6) Hyperkalemia: (7) Hyponatremia: (8) Foot ulcer, left: (9) Cellulitis: (10) Hyperglycemia: (11) Edema: (12) Acute encephalopathy: (13) Sepsis: Plan Acute encephalopathy, resolved -secondary to sepsis -cellulitis Cellulitis with Chronic osteomyelitis Significant leukocytosis No active sepsis signs Patient is afebrile Normal lactic acid Start broad-spectrum renally dosed antibiotics history of esbl coutinue vancomycin switch to meropenem consult podiatry, no acute interventions Requested blood cultures negative, PICC line to be placed, continue vancomycin, might require Invanz previous wound culture showed Pseudomonas and Alcaligenes faecalis and history of esbl Patient is living alone, independent, uses Podus boots Wet-to-dry dressing, Dakin's solution, Lobo wrap Acute on chronic kidney disease stage IV -monitor hyperkalemia -resolved Diabetic ketoacidosis, resolved High anion gap acidosis likely related to uremia lactic acid in normal -resolved anion gap, and metobolic acidosis -continue insulin sliding scale anemia -likely multifactorial -has evidence of iron deficiency anemia -likely anemia of chronic disease with chronic infection -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 ?Echodensity in the apical region, suggesting organized thrombus.? ?LV ejection fraction [id number]%(visual) -continue telemetry monitoring -continue aspirin, plavix, statin, and beta sharif Thrombus, -will repeat echo -continue heprain drip -monitor hgb closely In case of further worsening he might need nephro consultation, previous baseline creatinine was 2.6-3 Hypervolemic hyponatremia, resolving Fluid overloaded related to underlying CHF and chronic kidney disease Chronic hypoxia uses 2 L of oxygen at home Diastolic CHF acute exacerbation monitor Continue 2 L of oxygen at this point Looks euvolemic despite elevated bnp order chest xray Full code Diabetic diet DVT prophylaxis heparin and scd Attestations Medical Necessity Statement*: Patient requires hospitalization for cellulitis, osteomyelitis Diagnoses NSTEMI (non-ST elevated myocardial infarction) I21.4 Anemia D64.9 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 L97.423 Chronic osteomyelitis M86.60 Acute renal failure superimposed on stage 4 chronic kidney disease N17.9; N18.4 Hyperkalemia E87.5 Hyponatremia E87.1 Foot ulcer, left L97.529 Cellulitis L03.90 Hyperglycemia R73.9 Edema R60.9 Acute encephalopathy G93.40 Sepsis A41.9
[2023-01-03 15:59] LABS: Hematocrit 28.8 % (42.0-52.0); Hemoglobin 8.8 g/dL (11.7-16.6)
[2023-01-03 16:40] LABS: Glucose Point of Care 282 mg/dL (70-110)
[2023-01-03] MEDS: atorvastatin 40 mg Tablet PO (20:18)
[2023-01-03] MEDS: pantoprazole 40 mg SDV IVP (20:46)
[2023-01-03 21:03] LABS: Glucose Point of Care 345 mg/dL (70-110)
[2023-01-03] MEDS: meropenem 1,000 MG in sodium chloride 0.9% (plus) 50 ML 100 MG IV (21:05)
[2023-01-04] VITALS (10 sets, daily range): BP systolic 123–152; BP diastolic 71–80; PULSE 64–77; RESP 15–18; TEMP 36.7–36.8; O2SAT 95–97
[2023-01-04 04:42] LABS: Basophils # 0.1 10^3/uL (0.0-0.1); Basophils % 0.8 %; Eosinophils # 0.5 10^3/uL (0.0-0.8); Eosinophils % 6.4 %; Hematocrit 27.8 % (42.0-52.0); Hemoglobin 8.5 g/dL (11.7-16.6); Lymphocytes # 0.9 10^3/uL (0.8-4.8); Lymphocytes % 11.5 %; Mean Corpuscular HGB Conc 30.6 g/dL (30.0-36.0); Mean Corpuscular Hemoglobin 27.1 pg (28.0-34.0); Mean Corpuscular Volume 88.5 fl (80-94); Mean Platelet Volume 12.6 fL (7.4-10.4); Monocytes # 0.7 10^3/uL (0.2-0.9); Monocytes % 9.6 %; Neutrophils # 5.22 10^3/uL (1.8-7.7); Neutrophils % 69.7 %; Nucleated Red Blood Cells % 0 %; Platelet Count 162 10^3/cmm (130-400); Red Blood Count 3.14 10^6/uL (4.1-5.3); Red Cell Distribution Width 16.5 % (12.1-15.1); White Blood Count 7.5 10^3/uL (4.0-10.0)
[2023-01-04 05:13] LABS: Anion Gap 15.6 (5-19); Blood Urea Nitrogen 52 mg/dL (6-20); C Reactive Protein 69.7 mg/L (0.0-4.9); Calcium 7.9 mg/dL (8.5-10.5); Carbon Dioxide 23 mmol/L (22-29); Chloride 102 mmol/L (98-107); Glomerular Filtration Rate 16.6 mL/min (90-130); Glucose 306 mg/dL (65-115); Osmolality Calculated 306 mOsm/kg (285-295); Potassium 5.6 mmol/L (3.5-5.1); Sodium 135 mmol/L (136-145)
[2023-01-04 05:38] LABS: NT Pro B Type Natriuretic Pept 46406 pg/mL (0-125)
[2023-01-04] MEDS: aspirin 81 mg Chew Tablet PO (05:53)
--- NOTE | 2023-01-04 06:27 | PM.PN ---
Subjective Subjective: Patient seen at bedside this morning. Resting comfortably. No overnight events. States that he feels much better Vitals/I&O/Wt Last Vital Signs Temp 98.1 F 01/04/23 04:00 Pulse 69 01/04/23 04:00 Resp 17 01/04/23 04:00 BP 130/73 01/04/23 04:00 Pulse Ox 97 01/04/23 04:00 O2 Del Method 01/04/23 04:00 O2 Flow Rate 2 01/04/23 04:00 FiO2 28 01/01/23 09:00 01/03/23 01/03/23 01/04/23 14:59 22:59 06:59 Intake Total 240 / 240 170 / 410 Output Total 450 / 450 Balance 240 / 240 170 / 410 -450 / -40 Physical Exam Narrative: BELOW IS A FOCUSED LOWER EXTREMITY EXAM GENERAL: A&O x 3 VASCULAR: DP/PT pulses palpable +2 with CFT intact, <3seconds to distal digits. Bilateral lower extremity edema left worse than right with +2 pitting edema to the left foot and leg DERMATOLOGICAL: Full-thickness ulceration plantar aspect left heel as well as plantar aspect right foot Wound #1 Location: Plantar left heel mild surrounding erythema Size: 5.0 x 5.2 x 0.4 cm Undermining: Distal undermining 0.3 cm Tracking: Negative Probe to bone: Positive probe to bone, calcaneus exposed Borders: Macerated Base: 90% granular 10% fibrotic Drainage: Active serous drainage Malodor: Negative Wound #2 Location: Plantar right fifth metatarsal head Size: 1.0 x 1.0 x 0.8 cm Undermining: Negative Tracking: Negative Probe to bone: Positive Borders: Hyperkeratotic rim Base: 50% fibrotic 50% granular Drainage: Negative Malodor: Negative MUSCULOSKELETAL: Ankle joint and hindfoot range of motion within normal limits bilaterally. No tenderness with palpation of medial, lateral or anterior ankle bilaterally. No tenderness with palpation of lateral ankle ligaments bilaterally. No pain with palpation of midfoot bilaterally. 5/5 muscle strength in all 4 quadrants of the lower extremity when tested against resistance. NEUROLOGICAL: Neurological sensation to the affected foot and ankle is diminished through L4-S1 dermatomes via 10g SWMF, diminished sensation extends proximally to the level of the ankle Urinary Catheter Management: Reyes: Cath Placed During This Visit: yes Reason for Continuing Indwelling Catheter: Accurate Measurement of Urinary Output in Critically Ill Patients Urinary Catheter Date of Insertion: 12/31/22 Urinary Catheter Time of Insertion: 23:40 Data 01/04/23 04:24 01/04/23 04:24 Micro: Microbiology 01/01/23 15:55 Anaerobic Culture - Preliminary Other Source 01/01/23 15:55 Gram Stain - Final Other Source Wound Culture - Preliminary A&P Assessment and plan (1) Chronic osteomyelitis: (2) 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: (3) Chronic ulcer of right foot with fat layer exposed: (4) Cellulitis: Plan Mr. Robison is a 57-year-old male with history of chronic diabetic foot ulcers bilaterally. His left heel ulceration has calcaneus exposed with chronic osteomyelitis. He also has CKD and heart failure. He has been following up with wound care on a regular basis and according to the patient he has been discharged from home health. He has been doing daily dressing changes using Dakin's, Hydrofera Blue dry sterile dressing. Due to his worsening wounds he presented to the ER for evaluation where he was admitted to the hospital for IV antibiotics and further evaluation. Upon evaluation of the patient he does have mild cellulitis surrounding left calcaneus wound however, I do not believe that this is the source of the patient's leukocytosis of 21,000. His right foot wound although it probes to bone as well remained stable. Likely that patient's source of leukocytosis could be contributed to by the foot but unlikely primary source. As far as left heel chronic osteomyelitis is concerned, wide excisional debridement with partial calcanectomy with free flap versus graft would be patient's best chance of healing wound. However, this would require a multidisciplinary approach and would have a high chance of failure given patient's concomitant comorbidities. Clinical and lab findings WBC 7.5 ESR 61 CRP 135.9 VSS IMAGING: Right foot erosive changes of metatarsophalangeal joints are consistent with psoriatic arthritis pencil in cup deformity. Fifth metatarsophalangeal joint likely due to combination of psoriatic arthritis and osteomyelitis (chronic) no subcutaneous emphysema noted on left foot x-ray taken on 12/31/2022 CULTURES: Outpatient wound cultures from 12/19/2022 from left heel show Pseudomonas and a faecalis both sensitive to gentamicin Recommendations -Okay for diet from podiatry standpoint -No surgical intervention during this admission -Patient underwent bedside wound debridement of left heel yesterday/01/20. See procedure note for details -Recommend PICC line and long-term IV antibiotics for chronic osteomyelitis -Recommend daily dressing change with Hydrofera Blue, ABD, Kerlix, Lobo left heel and saline wet-to-dry to right foot -Continue Juzo therapy bilateral lower extremities for edema control -I will continue to follow the patient during this hospital admission and provide recommendations as needed. We will continue to monitor his response to the IV antibiotics -Recommend continued home health as patient is unable to perform daily dressing changes to the extent that they need to be performed. -Patient will be okay to discharge from podiatry standpoint once PICC line is placed and patient has post discharge care established. He will follow-up closely with me in the office as well as at wound care with Dr. Kait Calvillo Medical Necessity Statement*: Chronic left heel osteomyelitis requiring PICC line and IV antibiotics Coding Level of Care Code Acute Code for [facility] Fw Diagnoses Chronic osteomyelitis M86.60 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 L97.423 Chronic ulcer of right foot with fat layer exposed L97.512 Cellulitis L03.90
[2023-01-04 06:56] LABS: Glucose Point of Care 345 mg/dL (70-110)
[2023-01-04] MEDS: isosorbide mononitrate ER 30 mg Tablet PO (08:08)
[2023-01-04] MEDS: sodium bicarbonate 650 mg Tablet PO ×3 (08:08→20:36)
[2023-01-04] MEDS: metoprolol tartrate 50 mg Tablet 100 MG PO ×2 (08:08→17:36)
[2023-01-04] MEDS: pantoprazole 40 mg SDV IVP ×2 (08:08→20:21)
[2023-01-04] MEDS: docusate sodium 100 mg Capsule PO (08:08)
[2023-01-04] MEDS: sucralfate 1 gm Tablet PO ×2 (08:08→20:36)
[2023-01-04] MEDS: heparin 5,000 unit/mL INJ 1 mL 5000 UNIT SUBCUT ×2 (08:08→20:36)
[2023-01-04] MEDS: insulin lispro 100 unit/1 mL SUBCUT ×4 (08:08→21:46)
[2023-01-04] MEDS: clopidogrel 75 mg Tablet PO (08:08)
[2023-01-04] MEDS: FUROsemide 10 mg/mL SDV 4mL 40 MG IVP (08:08)
[2023-01-04] MEDS: pregabalin 100 mg Capsule 200 MG PO ×3 (08:08→20:36)
[2023-01-04] MEDS: sodium polystyrene sulfonate 15 gm/60 mL Btl PO (08:09)
--- NOTE | 2023-01-04 09:21 | XR_ITS ---
WS: [id number] XR chest 1V portable [id number] REASON FOR EXAM: PICC placement at 1000 FINDINGS: Right arm PICC line has been placed. The tip is in the distal SVC just above the right atrium. Coarse reticular interstitial lung opacities are seen in both lower lung gama as on the previous ex amination of 01/02/2023. No significant interval change. XR/XR chest 1V portable [id number] IMPRESSION: Right arm PICC line placement as above.
[2023-01-04] MEDS: insulin glargine 100 units/1 mL 10 UNIT SUBCUT (09:47)
[2023-01-04] MEDS: meropenem 1,000 MG in sodium chloride 0.9% (plus) 50 ML 100 MG IV ×2 (09:47→20:37)
[2023-01-04 11:35] LABS: Glucose Point of Care 343 mg/dL (70-110)
--- NOTE | 2023-01-04 12:27 | PC.NURSE ---
1025- PICC line placed in left basilic vein. 15ml EBL. Pt tolerated well. Tip ending in the distal SVC.
--- NOTE | 2023-01-04 13:26 | PM.PN ---
Subjective Subjective: patient was seen this morning, he is sitting up in a chair, no pain complaints Vitals/I&O/Wt Last Vital Signs Temp 98.1 F 01/04/23 11:52 Pulse 71 01/04/23 11:52 Resp 18 01/04/23 11:52 BP 123/71 01/04/23 11:52 Pulse Ox 96 01/04/23 11:52 O2 Del Method 01/04/23 11:52 O2 Flow Rate 2 01/04/23 08:11 FiO2 28 01/01/23 09:00 01/03/23 01/04/23 01/04/23 22:59 06:59 14:59 Intake Total 170 / 410 170 / 170 Output Total 450 / 450 Balance 170 / 410 -450 / -40 170 / 170 Physical Exam Const: COMMON NORMALS: no acute distress and patient oriented x3 Resp: COMMON NORMALS: normal respiratory effort, No retractions, No use of accessory muscles and clear to auscultation bilaterally AUSCULTATION: clear to auscultation bilaterally Cardio: COMMON NORMALS: regular rate, regular rhythm, S1 normal heart sound present and S2 normal heart sound present RATE: regular rate RHYTHM: regular rhythm HEART SOUNDS: S1 normal heart sound present and S2 normal heart sound present GI: COMMON NORMALS: Normal to inspection, nondistended, normoactive bowel sounds present and non-tender Extremity: COMMON NORMALS: no pedal edema Neuro: COMMON NORMALS: patient oriented x3 Urinary Catheter Management: Reyes: Cath Placed During This Visit: yes Reason for Continuing Indwelling Catheter: Accurate Measurement of Urinary Output in Critically Ill Patients Urinary Catheter Date of Insertion: 12/31/22 Urinary Catheter Time of Insertion: 23:40 Data 01/04/23 04:24 01/04/23 04:24 Micro: Microbiology 01/04/23 09:52 Occult Blood (FIT) - Final Stool - Stool Aspirate 01/01/23 15:55 Anaerobic Culture - Preliminary Other Source 01/01/23 15:55 Gram Stain - Final Other Source Wound Culture - Preliminary A&P Assessment and plan (1) NSTEMI (non-ST elevated myocardial infarction): (2) Anemia: (3) 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: (4) Chronic osteomyelitis: (5) Acute renal failure superimposed on stage 4 chronic kidney disease: (6) Hyperkalemia: (7) Hyponatremia: (8) Foot ulcer, left: (9) Cellulitis: (10) Hyperglycemia: (11) Edema: (12) Acute encephalopathy: (13) Sepsis: Plan Acute encephalopathy, resolved -secondary to sepsis -cellulitis Cellulitis with Chronic osteomyelitis Significant leukocytosis No active sepsis signs Patient is afebrile Normal lactic acid Start broad-spectrum renally dosed antibiotics history of esbl will place piccline coutinue vancomycin switch to meropenem consult podiatry, no acute interventions Requested blood cultures negative, PICC line to be placed, continue vancomycin, might require Invanz previous wound culture showed Pseudomonas and Alcaligenes faecalis and history of esbl Patient is living alone, independent, uses Podus boots Wet-to-dry dressing, Dakin's solution, Lobo wrap Acute on chronic kidney disease stage IV -monitor hyperkalemia -resolved Diabetic ketoacidosis, resolved High anion gap acidosis likely related to uremia lactic acid in normal -resolved anion gap, and metobolic acidosis -continue insulin sliding scale anemia -likely multifactorial -has evidence of iron deficiency anemia -likely anemia of chronic disease with chronic infection -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 ?Echodensity in the apical region, suggesting organized thrombus.? ?LV ejection fraction [id number]%(visual) -repeat echo with contrast shows no significnat evidence of LV thrombus, LV function within normal limits -continue telemetry monitoring -continue aspirin, plavix, statin, and beta sharif Thrombus, -not seen on repeat echo In case of further worsening he might need nephro consultation, previous baseline creatinine was 2.6-3 Hypervolemic hyponatremia, resolving Fluid overloaded related to underlying CHF and chronic kidney disease Chronic hypoxia uses 2 L of oxygen at home Diastolic CHF acute exacerbation monitor Continue 2 L of oxygen at this point Looks euvolemic despite elevated bnp 1 dose lasic today Full code Diabetic diet DVT prophylaxis heparin and scd Attestations Medical Necessity Statement*: patient requires hospitalization for cellultis with history of osteomyelitis , requiring iv antibiotics Coding Level of Care Code Acute Code for [facility] Fwd Diagnoses NSTEMI (non-ST elevated myocardial infarction) I21.4 Anemia D64.9 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 L97.423 Chronic osteomyelitis M86.60 Acute renal failure superimposed on stage 4 chronic kidney disease N17.9; N18.4 Hyperkalemia E87.5 Hyponatremia E87.1 Foot ulcer, left L97.529 Cellulitis L03.90 Hyperglycemia R73.9 Edema R60.9 Acute encephalopathy G93.40 Sepsis A41.9
[2023-01-04 16:20] LABS: Blood Urea Nitrogen 51 mg/dL (6-20); Calcium 7.6 mg/dL (8.5-10.5); Carbon Dioxide 23 mmol/L (22-29); Chloride 101 mmol/L (98-107); Glomerular Filtration Rate 16.1 mL/min (90-130); Glucose 248 mg/dL (65-115); Osmolality Calculated 300 mOsm/kg (285-295); Sodium 134 mmol/L (136-145)
[2023-01-04 16:24] LABS: Anion Gap 15.2 (5-19); Potassium 5.2 mmol/L (3.5-5.1)
[2023-01-04 17:06] LABS: Glucose Point of Care 248 mg/dL (70-110)
[2023-01-04] MEDS: vancomycin 1,500 MG/300 ML PIGGYBACK 200 MG IV (18:13)
[2023-01-04] MEDS: atorvastatin 40 mg Tablet PO (20:36)
[2023-01-04 22:35] LABS: Glucose Point of Care 171 mg/dL (70-110)
[2023-01-05] VITALS (12 sets, daily range): BP systolic 125–160; BP diastolic 71–81; PULSE 57–74; RESP 15–20; TEMP 36.4–36.7; O2SAT 94–99
[2023-01-05] MEDS: aspirin 81 mg Chew Tablet PO (05:07)
[2023-01-05 08:03] LABS: Glucose Point of Care 203 mg/dL (70-110)
[2023-01-05 08:03] LABS: Glucose Point of Care 181 mg/dL (70-110)
[2023-01-05] MEDS: insulin glargine 100 units/1 mL 10 UNIT SUBCUT (09:00)
[2023-01-05] MEDS: pregabalin 100 mg Capsule 200 MG PO ×3 (09:01→20:54)
[2023-01-05] MEDS: heparin 5,000 unit/mL INJ 1 mL 5000 UNIT SUBCUT ×2 (09:01→20:53)
[2023-01-05] MEDS: insulin lispro 100 unit/1 mL SUBCUT ×4 (09:01→20:59)
[2023-01-05] MEDS: clopidogrel 75 mg Tablet PO (09:02)
[2023-01-05] MEDS: sodium bicarbonate 650 mg Tablet PO ×3 (09:02→20:54)
[2023-01-05] MEDS: metoprolol tartrate 50 mg Tablet 100 MG PO ×2 (09:02→17:23)
[2023-01-05] MEDS: sucralfate 1 gm Tablet PO ×2 (09:02→20:54)
[2023-01-05] MEDS: isosorbide mononitrate ER 30 mg Tablet PO (09:02)
[2023-01-05] MEDS: meropenem 1,000 MG in sodium chloride 0.9% (plus) 50 ML 100 MG IV ×2 (09:02→20:54)
[2023-01-05] MEDS: pantoprazole 40 mg SDV IVP ×2 (09:17→20:59)
[2023-01-05 09:54] LABS: Basophils # 0.1 10^3/uL (0.0-0.1); Basophils % 0.9 %; Eosinophils # 0.8 10^3/uL (0.0-0.8); Hematocrit 30.5 % (42.0-52.0); Hemoglobin 9.4 g/dL (11.7-16.6); Lymphocytes # 1.5 10^3/uL (0.8-4.8); Lymphocytes % 13.6 %; Mean Corpuscular HGB Conc 30.8 g/dL (30.0-36.0); Mean Corpuscular Hemoglobin 27.5 pg (28.0-34.0); Mean Corpuscular Volume 89.2 fl (80-94); Mean Platelet Volume 12.6 fL (7.4-10.4); Monocytes # 0.9 10^3/uL (0.2-0.9); Monocytes % 7.8 %; Neutrophils # 7.45 10^3/uL (1.8-7.7); Neutrophils % 66.8 %; Nucleated Red Blood Cells % 0 %; Platelet Count 169 10^3/cmm (130-400); Red Blood Count 3.42 10^6/uL (4.1-5.3); Red Cell Distribution Width 16.5 % (12.1-15.1); White Blood Count 11.2 10^3/uL (4.0-10.0)
[2023-01-05 11:08] LABS: Glucose Point of Care 245 mg/dL (70-110)
--- NOTE | 2023-01-05 12:02 | PC.SOCIAL ---
IMM UPDATED IMM dated and initialed, copy placed in chart and copy given to patient.
[2023-01-05 13:16] LABS: Anion Gap 17.1 (5-19); Blood Urea Nitrogen 52 mg/dL (6-20); Calcium 8.2 mg/dL (8.5-10.5); Carbon Dioxide 22 mmol/L (22-29); Chloride 99 mmol/L (98-107); Glomerular Filtration Rate 17.7 mL/min (90-130); Glucose 221 mg/dL (65-115); Osmolality Calculated 297 mOsm/kg (285-295); Potassium 5.1 mmol/L (3.5-5.1); Sodium 133 mmol/L (136-145)
[2023-01-05 13:19] LABS: Creatinine Clr Calc Pharmacy 30.5706
[2023-01-05] MEDS: alteplase 1 mg/mL SDV 2 mL 2 MG INTRACATH (13:20)
--- NOTE | 2023-01-05 13:50 | PM.PN ---
Subjective Subjective: Patient was seen this morning, he does not want to go to a residential, he wants to go home, he tells me that he will get IV infusions of vancomycin, through outpatient GI lab, Vitals/I&O/Wt Last Vital Signs Temp 97.6 F 01/05/23 11:32 Pulse 74 01/05/23 11:32 Resp 16 01/05/23 11:32 BP 160/81 01/05/23 11:32 Pulse Ox 97 01/05/23 11:32 O2 Del Method 01/05/23 11:32 O2 Flow Rate 2 01/05/23 07:51 FiO2 28 01/01/23 09:00 01/04/23 01/05/23 01/05/23 22:59 06:59 14:59 Intake Total 730 / 900 410 / 410 Output Total 650 / 650 500 / 1150 Balance 80 / 250 -500 / -250 410 / 410 Physical Exam Const: COMMON NORMALS: no acute distress and patient oriented x3 Resp: COMMON NORMALS: normal respiratory effort, No retractions, No use of accessory muscles and clear to auscultation bilaterally AUSCULTATION: clear to auscultation bilaterally Cardio: COMMON NORMALS: regular rate, regular rhythm, S1 normal heart sound present and S2 normal heart sound present RATE: regular rate RHYTHM: regular rhythm HEART SOUNDS: S1 normal heart sound present and S2 normal heart sound present GI: COMMON NORMALS: Normal to inspection, nondistended, normoactive bowel sounds present and non-tender Extremity: COMMON NORMALS: no pedal edema NARRATIVE EXTREMITY EXAM: Lower extremities wrapped Neuro: COMMON NORMALS: patient oriented x3 Psych: COMMON NORMALS: mental status grossly normal Urinary Catheter Management: Reyes: Cath Placed During This Visit: yes Reason for Continuing Indwelling Catheter: Accurate Measurement of Urinary Output in Critically Ill Patients Urinary Catheter Date of Insertion: 12/31/22 Urinary Catheter Time of Insertion: 23:40 Data 01/05/23 09:14 01/05/23 12:42 Micro: Microbiology 01/01/23 15:55 Gram Stain - Final Other Source Wound Culture - Preliminary Pseudomonas aeruginosa Gram Negative Rods#2 Staphylococcus aureus 01/04/23 09:52 Occult Blood (FIT) - Final Stool - Stool Aspirate 01/01/23 15:55 Anaerobic Culture - Preliminary Other Source A&P Assessment and plan (1) NSTEMI (non-ST elevated myocardial infarction): (2) Anemia: (3) 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: (4) Chronic osteomyelitis: (5) Acute renal failure superimposed on stage 4 chronic kidney disease: (6) Hyperkalemia: (7) Hyponatremia: (8) Foot ulcer, left: (9) Cellulitis: (10) Hyperglycemia: (11) Edema: (12) Acute encephalopathy: (13) Sepsis: Plan Acute encephalopathy, resolved -secondary to sepsis -cellulitis Cellulitis with Chronic osteomyelitis For MRI 12/03/2022 1.? Marrow edema suggest an acute process involving the fifth metatarsal head and proximal phalanx. Suspicious for osteomyelitis. 2.? Additional erosive changes and abnormal configuration of the second through fourth metatarsal heads with only very minimal if any edema. These are probably chronic areas of osteomyelitis or posttraumatic changes. 3.? Focal 2.6 cm ulcer along the plantar surface of the foot at the level of the second metatarsal head. No increased T2 signal. 4.? Mild cellulitis over the lateral distal fifth metatarsal and toe. Significant leukocytosis No active sepsis signs Patient is afebrile Normal lactic acid Start broad-spectrum renally dosed antibiotics history of esbl will place piccline coutinue vancomycin switch to meropenem consult podiatry, no acute interventions Requested blood cultures negative, PICC line placed, continue vancomycin, might require Invanz previous wound culture showed Pseudomonas and Alcaligenes faecalis and history of esbl Tissue cultures growing further gram-negative's, await identification Patient is living alone, independent, uses Podus boots Wet-to-dry dressing, Dakin's solution, Lobo wrap Acute on chronic kidney disease stage IV -monitor hyperkalemia -resolved Diabetic ketoacidosis, resolved High anion gap acidosis likely related to uremia lactic acid in normal -resolved anion gap, and metobolic acidosis -continue insulin sliding scale anemia -likely multifactorial -has evidence of iron deficiency anemia -likely anemia of chronic disease with chronic infection -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 ?Echodensity in the apical region, suggesting organized thrombus.? ?LV ejection fraction [id number]%(visual) -repeat echo with contrast shows no significnat evidence of LV thrombus, LV function within normal limits -continue telemetry monitoring -continue aspirin, plavix, statin, and beta sharif Thrombus, -not seen on repeat echo In case of further worsening he might need nephro consultation, previous baseline creatinine was 2.6-3 Hypervolemic hyponatremia, resolving Fluid overloaded related to underlying CHF and chronic kidney disease Chronic hypoxia uses 2 L of oxygen at home Diastolic CHF acute exacerbation monitor Continue 2 L of oxygen at this point Looks euvolemic despite elevated bnp Hold Lasix Full code Diabetic diet DVT prophylaxis heparin and scd Attestations Medical Necessity Statement*: Patient requires hospitalization for cellulitis, concern for osteomyelitis Coding Level of Care Code Acute Code for [facility] Fwd Diagnoses NSTEMI (non-ST elevated myocardial infarction) I21.4 Anemia D64.9 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 L97.423 Chronic osteomyelitis M86.60 Acute renal failure superimposed on stage 4 chronic kidney disease N17.9; N18.4 Hyperkalemia E87.5 Hyponatremia E87.1 Foot ulcer, left L97.529 Cellulitis L03.90 Hyperglycemia R73.9 Edema R60.9 Acute encephalopathy G93.40 Sepsis A41.9
[2023-01-05 17:11] LABS: Glucose Point of Care 247 mg/dL (70-110)
[2023-01-05 20:27] LABS: Glucose Point of Care 244 mg/dL (70-110)
[2023-01-05] MEDS: atorvastatin 40 mg Tablet PO (20:54)
[2023-01-06] VITALS (9 sets, daily range): BP systolic 128–153; BP diastolic 71–80; PULSE 59–76; RESP 15–92; TEMP 36.4–36.6; O2SAT 92–98
[2023-01-06 04:07] LABS: Basophils # 0.1 10^3/uL (0.0-0.1); Basophils % 0.6 %; Eosinophils # 0.8 10^3/uL (0.0-0.8); Eosinophils % 8.2 %; Hematocrit 26.8 % (42.0-52.0); Hemoglobin 8.2 g/dL (11.7-16.6); Lymphocytes # 1.6 10^3/uL (0.8-4.8); Lymphocytes % 15.3 %; Mean Corpuscular HGB Conc 30.6 g/dL (30.0-36.0); Mean Corpuscular Hemoglobin 27.1 pg (28.0-34.0); Mean Corpuscular Volume 88.4 fl (80-94); Monocytes # 0.9 10^3/uL (0.2-0.9); Monocytes % 8.8 %; Neutrophils # 6.48 10^3/uL (1.8-7.7); Neutrophils % 63.4 %; Nucleated Red Blood Cells % 0 %; Platelet Count 184 10^3/cmm (130-400); Red Blood Count 3.03 10^6/uL (4.1-5.3); Red Cell Distribution Width 16.2 % (12.1-15.1); White Blood Count 10.2 10^3/uL (4.0-10.0)
[2023-01-06 04:31] LABS: Blood Urea Nitrogen 53 mg/dL (6-20); Calcium 7.8 mg/dL (8.5-10.5); Carbon Dioxide 22 mmol/L (22-29); Chloride 97 mmol/L (98-107); Glomerular Filtration Rate 15.2 mL/min (90-130); Glucose 199 mg/dL (65-115); Osmolality Calculated 288 mOsm/kg (285-295); Sodium 129 mmol/L (136-145)
[2023-01-06 04:34] LABS: Anion Gap 15.7 (5-19); Potassium 5.7 mmol/L (3.5-5.1)
[2023-01-06] MEDS: aspirin 81 mg Chew Tablet PO (06:20)
[2023-01-06 06:28] LABS: Anion Gap 15.4 (5-19); Blood Urea Nitrogen 53 mg/dL (6-20); Calcium 7.8 mg/dL (8.5-10.5); Carbon Dioxide 22 mmol/L (22-29); Chloride 98 mmol/L (98-107); Glomerular Filtration Rate 16.6 mL/min (90-130); Glucose 233 mg/dL (65-115); Osmolality Calculated 292 mOsm/kg (285-295); Potassium 5.4 mmol/L (3.5-5.1); Sodium 130 mmol/L (136-145)
[2023-01-06 06:45] LABS: Glucose Point of Care 249 mg/dL (70-110)
[2023-01-06] MEDS: insulin lispro 100 unit/1 mL SUBCUT ×4 (09:24→21:22)
[2023-01-06] MEDS: pregabalin 100 mg Capsule 200 MG PO ×3 (09:24→20:41)
[2023-01-06] MEDS: pantoprazole 40 mg SDV IVP ×2 (09:25→20:42)
[2023-01-06] MEDS: isosorbide mononitrate ER 30 mg Tablet PO (09:25)
[2023-01-06] MEDS: sucralfate 1 gm Tablet PO ×2 (09:25→20:42)
[2023-01-06] MEDS: sodium bicarbonate 650 mg Tablet PO ×3 (09:25→21:24)
[2023-01-06] MEDS: metoprolol tartrate 50 mg Tablet 100 MG PO ×2 (09:25→17:23)
[2023-01-06] MEDS: insulin glargine 100 units/1 mL 10 UNIT SUBCUT (09:25)
[2023-01-06] MEDS: clopidogrel 75 mg Tablet PO (09:25)
[2023-01-06] MEDS: heparin 5,000 unit/mL INJ 1 mL 5000 UNIT SUBCUT ×2 (09:25→20:42)
[2023-01-06] MEDS: meropenem 1,000 MG in sodium chloride 0.9% (plus) 50 ML 100 MG IV ×2 (09:38→21:23)
[2023-01-06 12:16] LABS: Glucose Point of Care 330 mg/dL (70-110)
[2023-01-06 14:28] LABS: Blood Urea Nitrogen 53 mg/dL (6-20); Calcium 7.7 mg/dL (8.5-10.5); Carbon Dioxide 22 mmol/L (22-29); Chloride 96 mmol/L (98-107); Glomerular Filtration Rate 16.1 mL/min (90-130); Glucose 284 mg/dL (65-115); Osmolality Calculated 289 mOsm/kg (285-295); Sodium 127 mmol/L (136-145)
[2023-01-06 14:43] LABS: Anion Gap 14.5 (5-19); Potassium 5.5 mmol/L (3.5-5.1)
[2023-01-06 16:58] LABS: Glucose Point of Care 240 mg/dL (70-110)
--- NOTE | 2023-01-06 17:36 | P.PN_ITS ---
Subjective Subjective: Patient was seen this morning, he has no complaints, Vitals/I&O/Wt Last Vital Signs Temp 97.9 F 01/06/23 12:00 Pulse 66 01/06/23 14:00 Resp 92 H 01/06/23 12:00 BP 133/71 01/06/23 12:00 Pulse Ox 92 01/06/23 12:00 O2 Del Method 01/06/23 12:00 O2 Flow Rate 2 01/06/23 09:01 FiO2 28 01/01/23 09:00 01/06/23 01/06/23 01/06/23 06:59 14:59 22:59 Intake Total 530 / 530 Output Total 300 / 1200 650 / 650 Balance -300 / -500 -120 / -120 Physical Exam Const: COMMON NORMALS: no acute distress and patient oriented x3 Resp: COMMON NORMALS: normal respiratory effort, No retractions, No use of accessory muscles and clear to auscultation bilaterally AUSCULTATION: clear to auscultation bilaterally Cardio: COMMON NORMALS: regular rate, regular rhythm, S1 normal heart sound present and S2 normal heart sound present RATE: regular rate RHYTHM: regular rhythm HEART SOUNDS: S1 normal heart sound present and S2 normal heart sound present GI: COMMON NORMALS: Normal to inspection, nondistended, normoactive bowel sounds present and non-tender Extremity: COMMON NORMALS: no pedal edema Neuro: COMMON NORMALS: patient oriented x3 Psych: COMMON NORMALS: mental status grossly normal Urinary Catheter Management: Reyes: Cath Placed During This Visit: yes Reason for Continuing Indwelling Catheter: Acute Urinary Retention or Obstru ction Urinary Catheter Date of Insertion: 12/31/22 Urinary Catheter Time of Insertion: 23:40 Data 01/06/23 03:30 01/06/23 14:00 Micro: Microbiology 01/01/23 15:55 Anaerobic Culture - Preliminary Other Source 12/31/22 17:05 Blood Culture - Final Blood NO GROWTH AFTER 5 DAYS 12/31/22 17:00 Blood Culture - Final Blood NO GROWTH AFTER 5 DAYS 01/01/23 15:55 Gram Stain - Final Other Source Wound Culture - Final Pseudomonas aeruginosa Stenotrophomonas maltophilia Staphylococcus aureus A&P Assessment and plan (1) NSTEMI (non-ST elevated myocardial infarction): (2) Anemia: (3) 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: (4) Chronic osteomyelitis: (5) Acute renal failure superimposed on stage 4 chronic kidney disease: (6) Hyperkalemia: (7) Hyponatremia: (8) Foot ulcer, left: (9) Cellulitis: (10) Hyperglycemia: (11) Edema: (12) Acute encephalopathy: (13) Sepsis: Plan Acute encephalopathy, resolved -secondary to sepsis -cellulitis Cellulitis with Chronic osteomyelitis For MRI 12/03/2022 1.? Marrow edema suggest an acute process involving the fifth metatarsal head and proximal phalanx. Suspicious for osteomyelitis. 2.? Additional erosive changes and abnormal configuration of the second through fourth metatarsal heads with only very minimal if any edema. These are probably chronic areas of osteomyelitis or posttraumatic changes. 3.? Focal 2.6 cm ulcer along the plantar surface of the foot at the level of the second metatarsal head. No increased T2 signal. 4.? Mild cellulitis over the lateral distal fifth metatarsal and toe. Significant leukocytosis No active sepsis signs Patient is afebrile Normal lactic acid Start broad-spectrum renally dosed antibiotics history of esbl will place piccline coutinue vancomycin switch to meropenem consult podiatry, no acute interventions Requested blood cultures negative, PICC line placed, continue vancomycin, might require Invanz previous wound culture showed Pseudomonas and Alcaligenes faecalis and history of esbl Patient is living alone, independent, uses Podus boots Wet-to-dry dressing, Dakin's solution, Lobo wrap Patient does not want to go to a [place] care facility Patient does not qualify for home IV infusions given his mobile status -We will set up outpatient infusions of vancomycin through GI lab, Vanco-1.5 g every 48 hours, for 37 remaining days Acute on chronic kidney disease stage IV -monitor hyperkalemia -resolved Diabetic ketoacidosis, resolved High anion gap acidosis likely related to uremia lactic acid in normal -resolved anion gap, and metobolic acidosis -continue insulin sliding scale anemia -likely multifactorial -has evidence of iron deficiency anemia -likely anemia of chronic disease with chronic infection -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 ?Echodensity in the apical region, suggesting organized thrombus.? ?LV ejection fraction [id number]%(visual) -repeat echo with contrast shows no significnat evidence of LV thrombus, LV function within normal limits -continue telemetry monitoring -continue aspirin, plavix, statin, and beta sharif Thrombus, -not seen on repeat echo In case of further worsening he might need nephro consultation, previous baseline creatinine was 2.6-3 Hypervolemic hyponatremia, resolving Fluid overloaded related to underlying CHF and chronic kidney disease Chronic hypoxia uses 2 L of oxygen at home Diastolic CHF acute exacerbation monitor Continue 2 L of oxygen at this point Looks euvolemic despite elevated bnp Hold Lasix Full code Diabetic diet DVT prophylaxis heparin and scd Attestations Medical Necessity Statement*: Patient requires hospitalization for foot osteomyelitis requiring IV antibiotic therapy Diagnoses NSTEMI (non-ST elevated myocardial infarction) I21.4 Anemia D64.9 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 L97.423 Chronic osteomyelitis M86.60 Acute renal failure superimposed on stage 4 chronic kidney disease N17.9; N18.4 Hyperkalemia E87.5 Hyponatremia E87.1 Foot ulcer, left L97.529 Cellulitis L03.90 Hyperglycemia R73.9 Edema R60.9 Acute encephalopathy G93.40 Sepsis A41.9
[2023-01-06 19:45] LABS: Vancomycin Trough 21.2 ug/mL (10-15)
[2023-01-06] MEDS: atorvastatin 40 mg Tablet PO (20:42)
[2023-01-06 20:57] LABS: Glucose Point of Care 234 mg/dL (70-110)
--- NOTE | 2023-01-06 21:42 | PC.NURSE ---
Vancomycin being held until pharmacy makes adjustments.
--- NOTE | 2023-01-06 22:05 | PC.PHAR ---
Pharmacy dosing of Vancomycin Vancomycin trough 21.2 changed dosing of Q48h to Q54h Thanks, Ivonne Victoria [facility]
[2023-01-07] VITALS (12 sets, daily range): BP systolic 112–144; BP diastolic 68–77; PULSE 55–68; RESP 14–18; TEMP 36.3–36.6; O2SAT 88–99
[2023-01-07] MEDS: vancomycin 1,500 MG/300 ML PIGGYBACK 200 MG IV (00:48)
[2023-01-07 04:57] LABS: Basophils # 0.1 10^3/uL (0.0-0.1); Basophils % 0.7 %; Eosinophils # 1.1 10^3/uL (0.0-0.8); Eosinophils % 10.3 %; Hematocrit 25.1 % (42.0-52.0); Hemoglobin 7.5 g/dL (11.7-16.6); Lymphocytes % 18.6 %; Mean Corpuscular HGB Conc 29.9 g/dL (30.0-36.0); Mean Corpuscular Hemoglobin 26.6 pg (28.0-34.0); Mean Platelet Volume 12.8 fL (7.4-10.4); Monocytes # 1.2 10^3/uL (0.2-0.9); Monocytes % 10.8 %; Neutrophils % 54.9 %; Nucleated Red Blood Cells % 0 %; Platelet Count 191 10^3/cmm (130-400); Red Blood Count 2.82 10^6/uL (4.1-5.3); Red Cell Distribution Width 16.2 % (12.1-15.1); White Blood Count 10.8 10^3/uL (4.0-10.0)
[2023-01-07 05:14] LABS: Anion Gap 16.1 (5-19); Blood Urea Nitrogen 52 mg/dL (6-20); Calcium 7.8 mg/dL (8.5-10.5); Carbon Dioxide 23 mmol/L (22-29); Chloride 99 mmol/L (98-107); Glomerular Filtration Rate 16.6 mL/min (90-130); Glucose 106 mg/dL (65-115); Osmolality Calculated 290 mOsm/kg (285-295); Potassium 5.1 mmol/L (3.5-5.1); Sodium 133 mmol/L (136-145)
[2023-01-07] MEDS: aspirin 81 mg Chew Tablet PO (05:25)
[2023-01-07 05:41] LABS: NT Pro B Type Natriuretic Pept 37446 pg/mL (0-125)
[2023-01-07 06:14] LABS: Glucose Point of Care 156 mg/dL (70-110)
[2023-01-07] MEDS: clopidogrel 75 mg Tablet PO (08:12)
[2023-01-07] MEDS: pantoprazole 40 mg SDV IVP (08:12)
[2023-01-07] MEDS: sucralfate 1 gm Tablet PO (08:12)
[2023-01-07] MEDS: heparin 5,000 unit/mL INJ 1 mL 5000 UNIT SUBCUT (08:12)
[2023-01-07] MEDS: isosorbide mononitrate ER 30 mg Tablet PO (08:12)
[2023-01-07] MEDS: sodium bicarbonate 650 mg Tablet PO ×2 (08:13→15:17)
[2023-01-07] MEDS: insulin glargine 100 units/1 mL 10 UNIT SUBCUT (08:13)
[2023-01-07] MEDS: pregabalin 100 mg Capsule 200 MG PO ×2 (08:13→15:17)
[2023-01-07] MEDS: metoprolol tartrate 50 mg Tablet 100 MG PO (08:13)
[2023-01-07] MEDS: insulin lispro 100 unit/1 mL SUBCUT ×2 (08:54→12:25)
[2023-01-07] MEDS: meropenem 1,000 MG in sodium chloride 0.9% (plus) 50 ML 100 MG IV (09:04)
--- NOTE | 2023-01-07 09:37 | P.DS_ITS ---
Discharge Providers Date of Admission: 12/31/22 20:03 Date of Discharge: January 07, 2023 Attending Provider at Admission: Abisai Maddox MD Attending Provider at Discharge: Luciano Mariscal MD Primary Care Provider: SERAFIN Reza Diagnoses at Discharge Discharge Diagnosis (1) NSTEMI (non-ST elevated myocardial infarction): Status: Acute (2) Anemia: Status: Acute (3) 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: Status: Acute (4) Chronic osteomyelitis: Status: Acute (5) Acute renal failure superimposed on stage 4 chronic kidney disease: Status: Acute (6) Hyperkalemia: Status: Acute (7) Hyponatremia: Status: Acute (8) Foot ulcer, left: Status: Acute (9) Cellulitis: Status: Acute (10) Hyperglycemia: Status: Acute (11) Edema: Status: Acute (12) Acute encephalopathy: Status: Acute (13) Sepsis: Status: Acute Reason for Visit Reason for Visit: 12268 FOOT INFECTION Hospital Course Hospital Course Tim Robison is a 57 year old male presented for worsening of swelling of bilateral lower extremities and inability to ambulate. He has multiple comorbid conditions, noncompliance, type 2 diabetes with diabetic foot ulcers, peripheral neuropathy, chronic osteomyelitis, follows up with Dr. Carballo at wound care clinic was discharged in November when he was admitted for diastolic CHF exacerbation, NSTEMI, stress test was pursued which showed gurjit-infarct ischemia, medical management was recommended his baseline creatinine is around 2.6, Dr. Allen recommended continuation of antibiotics such as ciprofloxacin and Flagyl he was getting Hydrofera Blue primary dressing followed by ABD Kerlix and Lobo wraps twice daily, he also has lymphedema as well. 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 As per the patient he has remained compliant with his medications.? Dr. Carballo's last wound care evaluation recommended wet-to-dry dressing, Dakin's solution, Lobo wraps, at that point a PICC line was recommended for appropriate renal dosing of antibiotics, his cultures were positive for Pseudomonas and Alcaligenes faecalis sensitive to Zyvox, pharmacy was consulted for appropriate dosing MRI foot 12/03 1.? Marrow edema suggest an acute process involving the fifth metatarsal head and proximal phalanx. Suspicious for osteomyelitis. 2.? Additional erosive changes and abnormal configuration of the second through fourth metatarsal heads with only very minimal if any edema. These are probably chronic areas of osteomyelitis or posttraumatic changes. 3.? Focal 2.6 cm ulcer along the plantar surface of the foot at the level of the second metatarsal head. No increased T2 signal. 4.? Mild cellulitis over the lateral distal fifth metatarsal and toe. Patient was admitted to [facility] for -Cellulitis with chronic osteomyelitis, received broad-spectrum antibiotic therapy, podiatry was consulted, PICC line placed, recommended medical management, patient will be discharged on 35 remaining days of vancomycin 1 g every 48 hours, with a recheck of the vancomycin trough on Saturday. Follow-up with infectious disease in the next week. -The initial plan was to discharge patient to long-term facility, however patient declined, he did not qualify for home health IV infusions due to his mobile status, thus we have set up vancomycin infusion through outpatient GI lab -Wet-to-dry dressings, offloading -Patient had concerns for DKA during his hospitalization, overall clinically improved, discharged with Levemir and NovoLog as below -For his anemia during his hospitalization, likely secondary to CKD, status post 1 unit PRBC, Hemoccult stools negative, follow-up with nephrology, follow-up with primary care -Patient had NSTEMI during his hospitalization, no complaints of chest pain, repeat echocardiogram showed an normal EF, no significant wall motion abnormalities. Patient has had multiple prior admissions with elevated troponins, and given his kidney function excluded him from coronary angiographic. As he has had no chest pain complaints, we will continue to monitor, patient's creatinine is 3.8, I would have him follow-up with cardiology as outpatient. Patient was advised if he were to have any chest pain to go to emergency room -In terms of patient's CKD, he had ARJUN on CKD, creatinine improved with holding diuretic therapy, creatinine on discharge 3.8. Patient's urine output is decent roughly 1.5 L. However I had extensive discussion with patient that I am concerned that he is progressing to need dialysis at some point in the near future, he needs to follow-up with nephrology -I spoke to Dr. Dow's office personally, to set up an appointment sooner rather than later's as patient likely needs evaluation for dialysis, however Dr. Dow office is booked solid in [place], and patient might have to go to [place] for an appointment. I voiced my concern as I do not think this is possible given his current osteomyelitis, requiring IV antibiotics, and I am worried about his progression of renal disease. I was told that it might be impossible for him to see Dr. Dow in [place]. However they are willing to look at his labs, and my discharge summary to see what they can do. I have had nursing staff fax over patient's labs, and my lab work to Dr. Dow's office. -Follow-up with primary care provider with repeat blood work this week - Please follow-up with infectious disease -Vancomycin is 1 g every 48 hours starting on Saturday morning at 8 AM, for 35 total days -Recheck vancomycin trough on Saturday morning -Please follow-up with infectious disease in 1 week -Please follow-up with nephrology in 1 week -Please monitor your blood sugars closely -If you have any fevers or chills go to the emergency room - Levemir 10 units subcut at bedtime --Please monitor your blood sugars closely -Monitor your blood sugars 3 times daily as after meals -Please record your blood sugars, and a blood sugar log -For your NovoLog -Please inject blood sugar after meals based on sliding scale provided -Do not inject insulin if you do not eat as hypoglycemia kills -This is a NovoLog sliding scale -Insulin sliding ?fingerstick? Insulin ?141-180?0 units/sq 181-220?2 units/sq ?221-260?4 units/sq ?261-300 6 units/sq ?301-350?8 units/sq ?351-400 10 units/sq ?401-450?12 units/sq >450? 14units/sq -If your blood sugar is greater than 500 go to the emergency room -If your blood sugar is less than 60 or at anytime you feel lightheaded or dizzy or diaphoretic or have chest palpitations check your blood sugar, and eat a hard candy or drink orange juice and go immediately to the emergency room -Remember hypoglycemia kills, so if his blood sugar is less than 60 we have to increase it by taking in a sugary meal such as a hard candy or orange juice and go to the emergency room -If you have any questions please call us where here to help Physical Exam Const: COMMON NORMALS: no acute distress and patient oriented x3 Resp: COMMON NORMALS: normal respiratory effort, No retractions, No use of accessory muscles and clear to auscultation bilaterally AUSCULTATION: clear to auscultation bilaterally Cardio: COMMON NORMALS: regular rate, regular rhythm, S1 normal heart sound present and S2 normal heart sound present RATE: regular rate RHYTHM: regular rhythm HEART SOUNDS: S1 normal heart sound present and S2 normal heart sound present GI: COMMON NORMALS: Normal to inspection, nondistended, normoactive bowel sounds present and non-tender Extremity: COMMON NORMALS: no pedal edema Neuro: COMMON NORMALS: patient oriented x3 Psych: COMMON NORMALS: mental status grossly normal Urinary Catheter Management: Reyes: Cath Placed During This Visit: yes Reason for Continuing Indwelling Catheter: Accurate Measurement of Urinary Output in Critically Ill Patients Urinary Catheter Date of Insertion: 12/31/22 Urinary Catheter Time of Insertion: 23:40 Discharge Data Studies Completed and Pending Completed Studies During Hospitalization Category Date Time Status CXRP [XR chest 1V portable [id number]] Routine Exams 01/04/23 09:21 Completed XR chest 1V portable [id number] Routine Exams 01/02/23 07:00 Completed XR chest 1V portable [id number] Stat Exams 01/01/23 07:50 Completed XR foot LT min 3V* [id number] Stat Exams 12/31/22 19:02 Completed CV. echo limited [id number] Routine Ultrasound 01/01/23 12:22 Completed US arterial duplex lower extremity bilat [CV arterial Ultrasound 12/31/22 21:59 [place] [id number]] Routine US renal BI* [id number] Routine Ultrasound 01/01/23 07:50 Completed Pending at discharge Category Date Time Status Anaerobic Culture Routine Lab 01/01/23 15:55 Results Basic Metabolic Panel AM LABS Lab 01/08/23 04:00 Ordered Complete Blood Count w/Auto AM LABS Lab 01/08/23 04:00 Ordered Leukocyte Reduced RBC Stat Lab 01/07/23 07:07 Results NT Pro B Type Natriuretic Pept QAM Lab 01/08/23 06:00 Ordered Type and Screen Stat Lab 01/07/23 07:07 Results CV. echo lmt w/w contras [id number] Stat Ultrasound 01/02/23 08:03 Taken Radiology Impressions Foot X-Ray 12/31/22 19:02 IMPRESSION: Increase in extent of sclerotic change within the calcaneus is suspicious for progression of osteomyelitis. Increase in prominence of soft tissue defect overlying the calcaneus can be correlated with progression of ulcer or interval debridement. Renal Ultrasound 01/01/23 07:50 IMPRESSION: 1. Mild diffuse cortical thinning LEFT kidney and atrophy. Similar to the prior study. 2. No hydronephrosis. Chest X-Ray 01/04/23 09:21 IMPRESSION: Right arm PICC line placement as above. Laboratory Results WBC 10.8 10^3/uL (4.0-10.0) H 01/07/23 03:55 RBC 2.82 10^6/uL (4.1-5.3) L 01/07/23 03:55 Hgb 7.5 g/dL (11.7-16.6) L 01/07/23 03:55 Hct 25.1 % (42.0-52.0) L 01/07/23 03:55 MCV 89.0 fl (80-94) 01/07/23 03:55 MCH 26.6 pg (28.0-34.0) L 01/07/23 03:55 MCHC 29.9 g/dL (30.0-36.0) L 01/07/23 03:55 RDW 16.2 % (12.1-15.1) H 01/07/23 03:55 Plt Count 191 10^3/cmm (130-400) 01/07/23 03:55 MPV 12.8 fL (7.4-10.4) H 01/07/23 03:55 Neut % (Auto) 54.9 % 01/07/23 03:55 Lymph % (Auto) 18.6 % 01/07/23 03:55 [place] % (Auto) 10.8 % 01/07/23 03:55 Eos % (Auto) 10.3 % 01/07/23 03:55 Baso % (Auto) 0.7 % 01/07/23 03:55 Neut # (Auto) 5.90 10^3/uL (1.8-7.7) 01/07/23 03:55 Lymph # (Auto) 2.0 10^3/uL (0.8-4.8) 01/07/23 03:55 [place] # (Auto) 1.2 10^3/uL (0.2-0.9) H 01/07/23 03:55 Eos # (Auto) 1.1 10^3/uL (0.0-0.8) H 01/07/23 03:55 Baso # (Auto) 0.1 10^3/uL (0.0-0.1) 01/07/23 03:55 Nucleated RBC % (auto) 0 % 01/07/23 03:55 Nucleated RBCs # 0.0 /100WBC 01/07/23 03:55 ESR 61 mm/hr (0-10) H 12/31/22 16:16 APTT 189.7 SECONDS (23.9-36.7) H* 01/02/23 15:25 Specimen Type Arterial 01/01/23 08:38 Sample Site Radial, right 01/01/23 08:38 ABG pH 7.33 (7.35-7.45) L 01/01/23 08:38 ABG pCO2 39.1 mmHg (35-45) 01/01/23 08:38 ABG pO2 108.0 mmHg (80.0-100.0) H 01/01/23 08:38 ABG HCO3 20.7 mmol/L (22-26) L 01/01/23 08:38 ABG O2 Saturation 99.0 01/01/23 08:38 ABG Base Excess -4.8 mmol/L (-2.0-2.0) L 01/01/23 08:38 Pedro Test Pos 01/01/23 08:38 A-a O2 Gradient 5.2 mmHg (5-10) 01/01/23 08:38 Hematocrit 33.2 % (42-52) L 01/01/23 08:38 Hgb O2 Saturation 97.5 % (95-100) 01/01/23 08:38 Carboxyhemoglobin 1.3 %THgb (0.4-20.1) 01/01/23 08:38 Methemoglobin 0.3 % (0.4-1.5) L 01/01/23 08:38 Total Hemoglobin 10.8 g/dL (14-18) L 01/01/23 08:38 Sodium 135.0 mmol/L (131-143) 01/01/23 08:38 Potassium 5.0 mmol/L (3.5-5.0) 01/01/23 08:38 Glucose 312.0 mg/dL (70-115) H 01/01/23 08:38 Ionized Calcium 1.2 mmol/L (1.1-1.4) 01/01/23 08:38 O2 Delivery Device Bipap 01/01/23 08:38 FiO2 28.0 % 01/01/23 08:38 PEEP 8.0 cmH20 12/31/22 23:45 Cracker Sprayer ID Gd 01/01/23 08:38 Sodium 133 mmol/L (136-145) L 01/07/23 03:55 Potassium 5.1 mmol/L (3.5-5.1) 01/07/23 03:55 Chloride 99 mmol/L (98-107) 01/07/23 03:55 Carbon Dioxide 23 mmol/L (22-29) 01/07/23 03:55 Anion Gap 16.1 (5-19) 01/07/23 03:55 BUN 52 mg/dL (6-20) H 01/07/23 03:55 Creatinine 3.8 mg/dL (0.7-1.2) H 01/07/23 03:55 GFR Calculation 16.6 mL/min (90-130) L 01/07/23 03:55 Glucose 106 mg/dL (65-115) 01/07/23 03:55 POC Glucose 156 mg/dL (70-110) H 01/07/23 06:11 Estimat Average Glucose 203 12/31/22 16:16 Hemoglobin A1c 8.7 % (4.0-6.0) H 12/31/22 16:16 Calculated Osmolality 290 mOsm/kg (285-295) 01/07/23 03:55 Lactic Acid 1.8 mmol/L (0.5-2.2) 12/31/22 20:33 Lactate 1.1 mmol/L (0.5-2.2) 12/31/22 17:00 Calcium 7.8 mg/dL (8.5-10.5) L 01/07/23 03:55 Magnesium 2.3 mg/dL (1.7-2.3) 01/03/23 05:40 Iron 18 ug/dL (59-158) L 01/01/23 04:25 TIBC 125 mcg/dl 01/01/23 04:25 % Saturation 14.4 % (20-50) L 01/01/23 04:25 Unsat Iron Binding 107 ug/dL (112-347) L 01/01/23 04:25 Ferritin 617 ng/mL (30-400) H 01/01/23 04:25 Total Bilirubin 0.4 mg/dL (0.15-1.2) 01/01/23 04:25 AST 10 U/L (0-40) 01/01/23 04:25 ALT < 5 U/L (0-41) 01/01/23 04:25 Alkaline Phosphatase 113 U/L (40-130) 01/01/23 04:25 Troponin T Baseline 199 ng/L (0-15) H* 01/01/23 04:25 Troponin T 120 Minute 183.0 ng/L (0-15) H 01/01/23 08:10 Delta Troponin T -16.0 ABS# (0-10) L 01/01/23 08:10 Troponin T Hi Sens 6Hr 170.4 ng/L (0-15) H 01/01/23 10:06 Troponin T Hi Sens 6Hr Delta -28.6 ng/L (0-12) L 01/01/23 10:06 C-Reactive Protein 69.7 mg/L (0.0-4.9) H 01/04/23 04:24 NT-Pro-B Natriuret Pep 79814 pg/mL (0-125) H 01/07/23 03:55 Total Protein 6.5 g/dL (6.6-8.7) L 01/01/23 04:25 Albumin 2.7 g/dL (3.5-5.2) L 01/01/23 04:25 Globulin 3.8 g/dL (1.3-4.6) 01/01/23 04:25 Procalcitonin 0.47 ng/mL (0-0.5) 01/03/23 05:40 Urine Color Yellow (Yellow) 12/31/22 23:45 Urine Appearance Clear (CLEAR) 12/31/22 23:45 Urine pH 5 (5-7) 12/31/22 23:45 Ur Specific [place] 1.015 (1.005-1.030) 12/31/22 23:45 Urine Protein 3+ (Negative) H 12/31/22 23:45 Urine Glucose (UA) 4+ (Normal) H 12/31/22 23:45 Urine Ketones 1+ (Negative) H 12/31/22 23:45 Urine Blood 3+ (Negative) H 12/31/22 23:45 Urine Nitrate Negative (Negative) 12/31/22 23:45 Urine Bilirubin Neg (Negative) 12/31/22 23:45 Urine Urobilinogen Norm mg/dL (Negative) 12/31/22 23:45 Ur Leukocyte Esterase Negative (Negative) 12/31/22 23:45 Urine RBC 5-10 /hpf (0-2) H 12/31/22 18:20 Urine WBC 0-4 /hpf (0-5) H 12/31/22 18:20 Ur Squamous Epith Cells 0-4 /hpf (0-5) H 12/31/22 18:20 Amorphous Sediment 2+ /hpf 12/31/22 18:20 Urine Bacteria 1+ /hpf (NONE) H 12/31/22 18:20 Hyaline Casts 0-4 /lpf H 12/31/22 18:20 Fine Granular Casts 0-4 /lpf H 12/31/22 18:20 Vancomycin Trough 21.2 ug/mL (10-15) H 01/06/23 18:28 Serum Ketones Positive (Negative) H 12/31/22 16:16 Blood Type O Positive 01/07/23 07:07 Rho(D) Type Positive 01/07/23 07:07 Antibody Screen Negative 01/07/23 07:07 Crossmatch See Detail 01/07/23 07:07 Vitals Last Vital Signs Temp 97.8 F 01/07/23 08:00 Pulse 67 01/07/23 08:33 Resp 16 01/07/23 08:33 BP 139/76 01/07/23 08:00 Pulse Ox 98 01/07/23 08:33 O2 Del Method 01/07/23 08:33 O2 Flow Rate 2 01/07/23 08:33 FiO2 28 01/01/23 09:00 Discharge Plan Discharge Patient Disposition: Home Condition: Stable Prescriptions: New docusate sodium 100 mg Capsule 100 mg PO BID 30 Days Qty: 60 0RF cefdinir 300 mg capsule 300 mg PO BID 14 Days Qty: 28 0RF Continued amlodipine 10 mg tablet 10 mg PO QAM gabapentin 300 mg capsule 300 mg PO BEDTIME (DME) Dexcom G6 Sensor Device See Rx Instructions .Route Qty: 9 3RF Rx Instructions: As directed (DME) Dexcom G6 Air Carrier Inspector Misc See Rx Instructions .Route Qty: 1 0RF Rx Instructions: As directed (DME) Dexcom G6 Transmitter Device See Rx Instructions .Route Qty: 3 3RF Rx Instructions: As directed (DME) Podus Boot to the Left See Rx Instructions .Route .MEDSUPPLY Qty: 1 0RF Rx Instructions: As directed J P & O- Patient is in Hospital Cardiac Stepdown Unit room 105-1 Dakin's Solution 0.125 % solution 1 applic topical DAILY Qty: 473 1RF cyanocobalamin (vitamin B-12) 1,000 mcg/mL Solution 1,000 mcg IM Q30D fluticasone propion-salmeterol [Advair Diskus] 100-50 mcg/dose blister with device 1 inh inhalation BID Qty: 60 0RF omeprazole 40 mg capsule,delayed release(DR/EC) 40 mg PO DAILY atorvastatin 40 mg tablet 40 mg PO BEDTIME metoprolol tartrate 100 mg tablet 100 mg PO BID albuterol sulfate 90 mcg/actuation HFA aerosol inhaler 1 puff inhalation Q6H PRN (Reason: shortness of breath or wheezing) pregabalin [Lyrica] 200 mg capsule 200 mg PO TID famotidine 20 mg tablet 20 mg PO BID isosorbide mononitrate 30 mg tablet extended release 24 hr 30 mg PO DAILY Qty: 60 1RF clopidogrel [Plavix] 75 mg tablet 75 mg PO DAILY Qty: 60 1RF aspirin 81 mg Tablet,Chewable 81 mg PO QAM Qty: 60 0RF furosemide [Lasix] 20 mg tablet 20 mg PO DAILY Qty: 30 2RF hydralazine 10 mg tablet 10 mg PO BID Qty: 60 0RF pantoprazole 40 mg Tablet,Delayed Release (Dr/Ec) 40 mg PO DAILY Changed insulin lispro [Humalog KwikPen Insulin] 100 unit/mL insulin pen See Rx Instructions .ROUTE .COMPLEX Qty: 15 0RF Rx Instructions: Inject, subcut, 3 times daily, after meals, based on sliding scale provided Levemir FlexTouch U-100 Insuln 100 unit/mL (3 mL) insulin pen 10 unit SUBCUT BEDTIME Qty: 15 0RF Discontinued metronidazole 500 mg tablet 500 mg PO BID Qty: 20 0RF Discharge Orders: Discharge Order (Routine); Ordered 01/07/23 Ordered By: Luciano Mariscal Other Ambulatory Orders: Physical Therapy Eval and Treat Outpatient (Order) Timeframe: 3 Days Facility: [facility] - Location: Physical Therapy Ordered By: Luciano Mariscal Referrals: Vidhi Gillette FNP [Primary Care Provider] - Jake Weinstein MD [Referring] - 1-3 days Kelsie Cedillo MD [Hospitalist] - 2 weeks [facility], [Staff Physician] - 1-3 days Discharge Diet: Cardiac Discharge Activity: Resume usual activity Patient Instructions: Opioid Safety Activity Restrictions/Additional Instructions: - Please follow-up with infectious disease -Vancomycin is 1 g every 48 hours starting on Saturday morning at 8 AM, for 35 total days -Recheck vancomycin trough on Saturday morning -Please follow-up with infectious disease in 1 week -Please follow-up with nephrology in 1 week -Please monitor your blood sugars closely -If you have any fevers or chills go to the emergency room - Levemir 10 units subcut at bedtime --Please monitor your blood sugars closely -Monitor your blood sugars 3 times daily as after meals -Please record your blood sugars, and a blood sugar log -For your NovoLog -Please inject blood sugar after meals based on sliding scale provided -Do not inject insulin if you do not eat as hypoglycemia kills -This is a NovoLog sliding scale -Insulin sliding ?fingerstick? Insulin ?141-180?0 units/sq 181-220?2 units/sq ?221-260?4 units/sq ?261-300 6 units/sq ?301-350?8 units/sq ?351-400 10 units/sq ?401-450?12 units/sq >450? 14units/sq -If your blood sugar is greater than 500 go to the emergency room -If your blood sugar is less than 60 or at anytime you feel lightheaded or dizzy or diaphoretic or have chest palpitations check your blood sugar, and eat a hard candy or drink orange juice and go immediately to the emergency room -Remember hypoglycemia kills, so if his blood sugar is less than 60 we have to increase it by taking in a sugary meal such as a hard candy or orange juice and go to the emergency room -If you have any questions please call us where here to help Discharge Attestations Time Spent in Discharge Care*: greater than 30 min Quality Metrics Clinical Quality Measures [ No reported AMI, CVA or VTE this stay] Coding Level of Care Code 12540 Total time (in minutes) for Discharge: 50 Diagnoses NSTEMI (non-ST elevated myocardial infarction) I21.4 Anemia D64.9 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 L97.423 Chronic osteomyelitis M86.60 Acute renal failure superimposed on stage 4 chronic kidney disease N17.9; N18.4 Hyperkalemia E87.5 Hyponatremia E87.1 Foot ulcer, left L97.529 Cellulitis L03.90 Hyperglycemia R73.9 Edema R60.9 Acute encephalopathy G93.40 Sepsis A41.9
[2023-01-07 11:52] LABS: Glucose Point of Care 256 mg/dL (70-110)
--- NOTE | 2023-01-07 13:05 | PC.SOCIAL ---
IMM Updated Updated pt on IMM. No questions voiced. Provided pt a copy. Initialed, dated & timed copy in chart.
== END 2023-01-07 15:54 | disposition home or self-care (01) | DRG 628 ==
LOC: ER 19:33 → MEDSURG 20:03
PROVIDERS: Family Medicine; Internal Medicine; Admitting Provider Internal Medicine; Emergency Provider Emergency Medicine; PCP Nurse Practitioner Family; Visit Provider Family Medicine
DX: E11.69 Type 2 diabetes mellitus with other specified complication (principal); A41.9 Sepsis, unspecified organism; G93.41 Metabolic encephalopathy; I50.33 Acute on chronic diastolic (congestive) heart failure; I21.A1 Myocardial infarction type 2; L97.423 Non-pressure chronic ulcer of left heel and midfoot with necrosis of muscle; M86.672 Other chronic osteomyelitis, left ankle and foot; L03.116 Cellulitis of left lower limb; E87.20 Acidosis, unspecified; E87.1 Hypo-osmolality and hyponatremia; Z68.41 Body mass index [BMI] 40.0-44.9, adult; N18.4 Chronic kidney disease, stage 4 (severe); N17.9 Acute kidney failure, unspecified; E11.22 Type 2 diabetes mellitus with diabetic chronic kidney disease; E11.42 Type 2 diabetes mellitus with diabetic polyneuropathy; E11.51 Type 2 diabetes mellitus with diabetic peripheral angiopathy without gangrene; E11.65 Type 2 diabetes mellitus with hyperglycemia; E11.621 Type 2 diabetes mellitus with foot ulcer; L97.512 Non-pressure chronic ulcer of other part of right foot with fat layer exposed; Z91.199 Patient's noncompliance with other medical treatment and regimen due to unspecified reason; B96.5 Pseudomonas (aeruginosa) (mallei) (pseudomallei) as the cause of diseases classified elsewhere; D63.1 Anemia in chronic kidney disease; E87.5 Hyperkalemia; E66.01 Morbid (severe) obesity due to excess calories; Z87.891 Personal history of nicotine dependence; Z99.81 Dependence on supplemental oxygen; Z79.82 Long term (current) use of aspirin; Z79.02 Long term (current) use of antithrombotics/antiplatelets; Z79.51 Long term (current) use of inhaled steroids
CPT/HCPCS: 36415; 36416; 36430; 36569; 36592; 36600; 51702; 71045; 73630; 76770; 80048; 80051; 80053; 80202; 81001; 81003; 82009; 82274; 82330; 82728; 82803; 82805; 82962; 83036; 83540; 83550; 83605; 83735; 83880; 84145; 84484; 85014; 85018; 85025; 85651; 85730; 86140; 86850; 86900; 86920; 87040; 87070; 87075; 87077; 87186; 87205; 93005; 93308; 93925; 94640; 94660; 94664; 96365; 96372; 96375; 97110; 97161; 97166; 97530; 97535; 99285; A9281; C8924; C9113; J0612; J1644; J1815; J1940; J2185; J2997; J3370; J3490; J7030; J7050; P9016; Q3014; Q9956

== ENCOUNTER → 2023-01-10 10:34 | Outpatient (BNVA) | payer MEDICARE, MEDICAID, SELFPAY | PROVIDERS: PCP Nurse Practitioner Family; Visit Provider Student in an Organized Health Care Education/Training Program | DX: M86.672 Other chronic osteomyelitis, left ankle and foot (principal); L97.512 Non-pressure chronic ulcer of other part of right foot with fat layer exposed | CPT/HCPCS: 99215 ==

== ENCOUNTER 2023-01-15 20:29 | Emergency (ER) | payer MEDICARE, MEDICAID, SELFPAY ==
[2023-01-15 20:31] VITALS: BP 161/104; PULSE 85; RESP 16; TEMP 36.8; O2SAT 92; BMI 42.2
[2023-01-15 20:41] LABS: Glucose Point of Care 397 mg/dL (70-110)
[2023-01-15 20:42] VITALS: BP 161/104; PULSE 84; RESP 20; O2SAT 95; O2SAT 96
--- NOTE | 2023-01-15 20:50 | W.ED.RECABL ---
HPI - Recheck/Abnormal Lab/Rx General: Chief Complaint: Recheck/Abnormal Lab/Rx Stated Complaint: hyperglycemia Time Seen by Provider: 01/15/23 20:34 Source: patient and EMS Mode of arrival: EMS Limitations: no limitations History of Present Illness: 57-year-old male has history of uncontrolled diabetes he recently been admitted here for bilateral cellulitis he is currently still on IV antibiotics for that through a PICC line he states that today his blood sugars been running high up into the 500s she has no other complaints he had some mild fatigue denies any pain anywhere denies any fevers his blood sugar now is 397. 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 Chronic osteomyelitis Chronic osteomyelitis 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 Chronic ulcer of right foot with fat layer exposed CKD (chronic kidney disease) Congestive heart failure Diabetes Diabetic peripheral neuropathy associated with type 2 diabetes mellitus Diabetic ulcer of foot associated with diabetes mellitus due to underlying condition, with fat layer exposed Elevated troponin Hyperkalemia Hyperkalemia Hyperlipidemia Hypoxia Neuropathy NSTEMI (non-ST elevated myocardial infarction) Onychomycosis of nail of digit of hand PVD (peripheral vascular disease) Type 2 diabetes mellitus Type 2 diabetes mellitus with foot ulcer Uncontrolled type 2 diabetes with neuropathy Surgical History H/O circumcision H/O colonoscopy 7 yrs ago Status post debridement of ulcer of heel Family History Brother Cancer Sister Lung disease Mother Heart failure Father Chronic kidney failure Denies family history of Anesthesia complication Bleeding disorder Social History Smoking and tobacco status: former smoker Second hand smoke exposure: No Alcohol intake: never Adopted: No Lives independently: Yes Marital status: Single Current occupational status: disabled Physical Exam Const: COMMON NORMALS: no acute distress, patient oriented x3 and healthy appearing HENMT: COMMON NORMALS: normocephalic and atraumatic HEAD & SCALP: normocephalic and atraumatic Eye: COMMON NORMALS: Equal, round and reactive pupils present and EOMs intact bilaterally PUPIL: Yes Equal, round and reactive pupils present Neck/C-Spine: COMMON NORMALS: full ROM and supple Chest: COMMONS NORMALS: normal inspection of the chest and normal palpation of entire chest wall Resp: COMMON NORMALS: normal respiratory effort, No retractions, No use of accessory muscles and clear to auscultation bilaterally AUSCULTATION: clear to auscultation bilaterally Cardio: COMMON NORMALS: regular rate, regular rhythm and No murmurs present (Cardio) RATE: regular rate RHYTHM: regular rhythm GI: COMMON NORMALS: Normal to inspection, nondistended, normoactive bowel sounds present, Soft to palpation, non-tender and no masses PALPATION: Yes Soft to palpation Extremity: COMMON NORMALS: normal to inspection and full ROM Neuro: COMMON NORMALS: patient oriented x3, moves all extremities and no focal motor deficits Psych: COMMON NORMALS: mental status grossly normal, Normal thought process present and cooperative THOUGHT PROCESS: Normal thought process present Skin: COMMON NORMALS: no rashes or lesions noted and no wounds GENERAL SKIN EXAM: no rashes or lesions noted Course Vital Signs: Vital signs: Vital Signs Temperature 98.3 F 01/15/23 20:31 Pulse Rate 78 01/15/23 22:13 Respiratory Rate 18 01/15/23 22:13 Blood Pressure 167/95 01/15/23 22:13 Pulse Oximetry 93 01/15/23 22:13 Oxygen Delivery Me thod Room Air 01/15/23 20:42 MDM - Recheck/Abnormal Lab/Rx Medical Decision Making Patient presents with hyperglycemia that is chronic in nature his blood work here is at his baseline no acute abnormalities his blood sugar here is improved he is to follow-up with mail messenger contractor informed he needs to call her tomorrow. He is to return if worsening he understands agrees to plan. Medical Records I reviewed the patient's medical records. Lab Data I reviewed the patient's lab results. 01/15/23 20:41 01/15/23 20:41 Laboratory Results WBC 7.8 10^3/uL (4.0-10.0) 01/15/23 20:41 RBC 3.42 10^6/uL (4.1-5.3) L 01/15/23 20:41 Hgb 9.4 g/dL (11.7-16.6) L 01/15/23 20:41 Hct 30.3 % (42.0-52.0) L 01/15/23 20: MCV 88.6 fl (80-94) 01/15/23 20: MCH 27.5 pg (28.0-34.0) L 01/15/23 20: MCHC 31.0 g/dL (30.0-36.0) 01/15/23 20: RDW 16.5 % (12.1-15.1) H 01/15/23 20:41 Plt Count 182 10^3/cmm (130-400) 01/15/23 20: MPV 13.7 fL (7.4-10.4) H 01/15/23 20:41 Neut % (Auto) 67.7 % 01/15/23 20: Lymph % (Auto) 16.9 % 01/15/23 20: [place] % (Auto) 8.0 % 01/15/23 20: Eos % (Auto) 5.0 % 01/15/23: Baso % (Auto) 1.8 % 01/15/23 20: Neut # (Auto) 5.27 10^3/uL (1.8-7.7) 01/15/23 20: Lymph # (Auto) 1.3 10^3/uL (0.8-4.8) 01/15/23 20: [place] # (Auto) 0.6 10^3/uL (0.2-0.9) 01/15/23 20:41 Eos # (Auto) 0.4 10^3/uL (0.0-0.8) 01/15/23 20: Baso # (Auto) 0.1 10^3/uL (0.0-0.1) 01/15/23 20:41 Nucleated RBC % (auto) 0 % 01/15/23 20:41 Nucleated RBCs # 0.0 /100WBC 01/15/23 20:41 Sodium 133 mmol/L (136-145) L 01/15/23 20:41 Potassium 5.0 mmol/L (3.5-5.1) 01/15/23 20:41 Chloride 99 mmol/L (98-107) 01/15/23 20:41 Carbon Dioxide 19 mmol/L (22-29) L 01/15/23 20:41 Anion Gap 20.0 (5-19) H 01/15/23 20:41 BUN 45 mg/dL (6-20) H 01/15/23 20:41 Creatinine 4.3 mg/dL (0.7-1.2) H 01/15/23 20:41 GFR Calculation 14.4 mL/min (90-130) L 01/15/23 20:41 Glucose 390 mg/dL (65-115) H 01/15/23 20:41 POC Glucose 313 mg/dL (70-110) H 01/15/23 21:48 Calculated Osmolality 304 mOsm/kg (285-295) H 01/15/23 20:41 Calcium 7.6 mg/dL (8.5-10.5) L 01/15/23 20:41 Total Bilirubin 0.4 mg/dL (0.15-1.2) 01/15/23 20:41 AST 19 U/L (0-40) 01/15/23 20:41 ALT 7 U/L (0-41) 01/15/23 20:41 Alkaline Phosphatase 208 U/L (40-130) H 01/15/23 20:41 Total Protein 8.2 g/dL (6.6-8.7) 01/15/23 20:41 Albumin 3.3 g/dL (3.5-5.2) L 01/15/23 20:41 Globulin 4.9 g/dL (1.3-4.6) H 01/15/23 20:41 Discharge Plan Discharge Patient Disposition: Home Clinical Impression: Hyperglycemia Condition: Stable Prescriptions: No Action amlodipine 10 mg tablet 10 mg PO QAM gabapentin 300 mg capsule 300 mg PO BEDTIME (DME) Dexcom G6 Sensor Device See Rx Instructions .Route Qty: 9 3RF Rx Instructions: As directed (DME) Dexcom G6 Back Facer Misc See Rx Instructions .Route Qty: 1 0RF Rx Instructions: As directed (DME) Dexcom G6 Transmitter Device See Rx Instructions .Route Qty: 3 3RF Rx Instructions: As directed (DME) Podus Boot to the Left See Rx Instructions .Route .MEDSUPPLY Qty: 1 0RF Rx Instructions: As directed J P & O- Patient is in Hospital Cardiac Stepdown Unit room 105-1 Dakin's Solution 0.125 % solution 1 applic topical DAILY Qty: 473 1RF cyanocobalamin (vitamin B-12) 1,000 mcg/mL Solution 1,000 mcg IM Q30D fluticasone propion-salmeterol [Advair Diskus] 100-50 mcg/dose blister with device 1 inh inhalation BID Qty: 60 0RF omeprazole 40 mg capsule,delayed release(DR/EC) 40 mg PO DAILY atorvastatin 40 mg tablet 40 mg PO BEDTIME metoprolol tartrate 100 mg tablet 100 mg PO BID albuterol sulfate 90 mcg/actuation HFA aerosol inhaler 1 puff inhalation Q6H PRN (Reason: shortness of breath or wheezing) pregabalin [Lyrica] 200 mg capsule 200 mg PO TID famotidine 20 mg tablet 20 mg PO BID isosorbide mononitrate 30 mg tablet extended release 24 hr 30 mg PO DAILY Qty: 60 1RF clopidogrel [Plavix] 75 mg tablet 75 mg PO DAILY Qty: 60 1RF aspirin 81 mg Tablet,Chewable 81 mg PO QAM Qty: 60 0RF furosemide [Lasix] 20 mg tablet 20 mg PO DAILY Qty: 30 2RF hydralazine 10 mg tablet 10 mg PO BID Qty: 60 0RF pantoprazole 40 mg Tablet,Delayed Release (Dr/Ec) 40 mg PO DAILY docusate sodium 100 mg Capsule 100 mg PO BID 30 Days Qty: 60 0RF Levemir FlexTouch U-100 Insuln 100 unit/mL (3 mL) insulin pen 10 unit SUBCUT BEDTIME Qty: 15 0RF insulin lispro [Humalog KwikPen Insulin] 100 unit/mL insulin pen See Rx Instructions .ROUTE .COMPLEX Qty: 15 0RF Rx Instructions: Inject, subcut, 3 times daily, after meals, based on sliding scale provided cefdinir 300 mg capsule 300 mg PO BID 14 Days Qty: 28 0RF piperacillin-tazobactam 4.5 gram Recon Soln 4.5 g IV Q12H Discharge Orders: Discharge ED (Routine); Ordered 01/15/23 Ordered By: Hakeem Ng Referrals: Vidhi Gillette FNP [Primary Care Provider] - Discharge Diet: Advance as tolerated Discharge Activity: Resume usual activity Patient Instructions: Diabetic Hyperglycemia (ED) Coding Level of Care Code ED Exchange Trouble Shooter for Blaise Beckett
[2023-01-15 20:54] LABS: Basophils # 0.1 10^3/uL (0.0-0.1); Basophils % 1.8 %; Eosinophils # 0.4 10^3/uL (0.0-0.8); Hematocrit 30.3 % (42.0-52.0); Hemoglobin 9.4 g/dL (11.7-16.6); Lymphocytes # 1.3 10^3/uL (0.8-4.8); Lymphocytes % 16.9 %; Mean Corpuscular Hemoglobin 27.5 pg (28.0-34.0); Mean Corpuscular Volume 88.6 fl (80-94); Mean Platelet Volume 13.7 fL (7.4-10.4); Monocytes # 0.6 10^3/uL (0.2-0.9); Neutrophils # 5.27 10^3/uL (1.8-7.7); Neutrophils % 67.7 %; Nucleated Red Blood Cells % 0 %; Platelet Count 182 10^3/cmm (130-400); Red Blood Count 3.42 10^6/uL (4.1-5.3); Red Cell Distribution Width 16.5 % (12.1-15.1); White Blood Count 7.8 10^3/uL (4.0-10.0)
[2023-01-15 21:09] LABS: Alanine Aminotransferase 7 U/L (0-41); Albumin Level 3.3 g/dL (3.5-5.2); Alkaline Phosphatase 208 U/L (40-130); Aspartate Amino Transferase 19 U/L (0-40); Blood Urea Nitrogen 45 mg/dL (6-20); Calcium 7.6 mg/dL (8.5-10.5); Carbon Dioxide 19 mmol/L (22-29); Chloride 99 mmol/L (98-107); Globulin 4.9 g/dL (1.3-4.6); Glomerular Filtration Rate 14.4 mL/min (90-130); Glucose 390 mg/dL (65-115); Osmolality Calculated 304 mOsm/kg (285-295); Sodium 133 mmol/L (136-145); Total Bilirubin 0.4 mg/dL (0.15-1.2); Total Protein 8.2 g/dL (6.6-8.7)
[2023-01-15] MEDS: insulin regular-human 100 units/1 mL 8 UNIT IVP (21:17)
[2023-01-15 21:22] LABS: Slide Review Slide Review Perform
[2023-01-15 22:01] LABS: Glucose Point of Care 313 mg/dL (70-110)
[2023-01-15 22:13] VITALS: BP 167/95; PULSE 78; RESP 18; O2SAT 93
== END 2023-01-15 22:15 | disposition home or self-care (01) ==
PROVIDERS: Emergency Provider Emergency Medicine; PCP Nurse Practitioner Family
DX: E11.65 Type 2 diabetes mellitus with hyperglycemia (principal); Z79.82 Long term (current) use of aspirin; Z79.02 Long term (current) use of antithrombotics/antiplatelets; Z79.4 Long term (current) use of insulin; Z87.891 Personal history of nicotine dependence; E11.22 Type 2 diabetes mellitus with diabetic chronic kidney disease; N18.9 Chronic kidney disease, unspecified; I50.9 Heart failure, unspecified; E78.5 Hyperlipidemia, unspecified; I25.2 Old myocardial infarction
CPT/HCPCS: 36416; 80053; 82962; 85025; 96374; 99284; J1815

== ENCOUNTER 2023-01-16 09:34 | Outpatient (RCR) | payer MEDICARE, MEDICAID, SELFPAY ==
[2023-01-09] MEDS: vancomycin 1,000 MG in sodium chloride 0.9% 250 ML 250 MG IV (09:07)
[2023-01-09 09:40] VITALS: BP 145/75; PULSE 63; RESP 18; TEMP 36.1; O2SAT 99
--- NOTE | 2023-01-09 09:41 | PC.NURSE ---
Pt max called at 0800 stating she could not get patient into her car from his wheelchair due to patient legs feeling weak . Niece states she was going to call an ambulance for help to get patient into car. Pt arrived to OPS and requested help to get into wheelchair from car. Three nurses able to get patient into wheelchair from car with maximum assist. Pt has wound care appointment following infusion today. Wound care notified that patient will be running late for appointment. Case management notified of difficulty getting patient to infusion appointment today. Pt scheduled to come every other day for IV Vancomycin for 35 days.
--- NOTE | 2023-01-09 10:17 | PC.NURSE ---
Vancomycin infusion completed. Tolerated without difficulty. Pt off floor via wheelchair to be taken to Wound care appointment via personal vehicle. Pt assisted into vehicle x3 assist. Dr. Mariscal notified of pt difficulty with making appointment and this nurse's concerns about ability for patient to make appointments over the next 35 days.
--- NOTE | 2023-01-10 11:00 | PC.NURSE ---
Infectious Disease clinic called stating patient is at his appointment and his PICC line dressing has large amount of bleeding noted. This nurse went to evaluate PICC and change dressing. PICC flushed without difficulty with good blood return. Large amount of bright red blood noted under transparent dressing. Blood clots the size of nickels noted within stat-lock device. Pt states he does not remember any specific event that would have caused bleeding. States he thinks it may have happened this morning when he transferred into wheelchair. States he may have bumped his arm at that time. Pt states he is currently on Plavix. Dressing changed. No further bleeding noted. Insertion site clear. PICC with 1 cm exposed catheter noted. No redness, swelling, or hematoma noted. Pt denies pain.
--- NOTE | 2023-01-11 07:48 | PC.NURSE ---
Dr. Cedillo's office sent new orders for patient's antibiotics. Vancomycin stopped. Zosyn 4.5 g IV first dose to be given in GI today and then [facility] infusion to supply medication for home infusion.
[2023-01-11] MEDS: piperacillin-tazobactam 4.5 GM in sodium chloride 0.9% (plus) 50 ML IV (08:04)
[2023-01-11 08:23] VITALS: BP 133/69; PULSE 63; RESP 18; TEMP 36.1; O2SAT 98
--- NOTE | 2023-01-11 08:50 | PC.NURSE ---
Pt tolerated first dose Zosyn 4.5 g IV without difficulty. [facility] infusion notified. Pt educated on how to flush PICC line and give antibiotic. Pt demonstrated ability to flush with saline, attach tubing to give antibiotic, and flush with saline following infusion. No questions or concerns at this time.
[2023-01-16 09:30] VITALS: BP 174/91; PULSE 74; RESP 18; TEMP 35.9; O2SAT 95
[2023-01-16 09:51] LABS: Basophils # 0.2 10^3/uL (0.0-0.1); Basophils % 1.7 %; Eosinophils # 0.4 10^3/uL (0.0-0.8); Eosinophils % 4.6 %; Hematocrit 28.5 % (42.0-52.0); Hemoglobin 8.7 g/dL (11.7-16.6); Lymphocytes # 1.2 10^3/uL (0.8-4.8); Lymphocytes % 12.7 %; Mean Corpuscular HGB Conc 30.5 g/dL (30.0-36.0); Mean Corpuscular Hemoglobin 27.1 pg (28.0-34.0); Mean Corpuscular Volume 88.8 fl (80-94); Mean Platelet Volume 13.6 fL (7.4-10.4); Monocytes # 0.6 10^3/uL (0.2-0.9); Monocytes % 6.7 %; Neutrophils # 6.87 10^3/uL (1.8-7.7); Neutrophils % 73.6 %; Nucleated Red Blood Cells % 0 %; Platelet Count 171 10^3/cmm (130-400); Red Blood Count 3.21 10^6/uL (4.1-5.3); Red Cell Distribution Width 16.3 % (12.1-15.1); White Blood Count 9.4 10^3/uL (4.0-10.0)
--- NOTE | 2023-01-16 10:00 | PC.NURSE ---
Pt to GI infusions for PICC dressing change and lab draw. PICC to right upper arm patent. No bleeding or complications noted. Tolerated well. Lab results to be faxed to [facility] as requested.
[2023-01-16 11:12] LABS: Alanine Aminotransferase 7 U/L (0-41); Alkaline Phosphatase 170 U/L (40-130); Aspartate Amino Transferase 17 U/L (0-40); Globulin 4.5 g/dL (1.3-4.6); Glomerular Filtration Rate 16.1 mL/min (90-130); Total Bilirubin 0.4 mg/dL (0.15-1.2); Total Protein 7.5 g/dL (6.6-8.7)
== END 2023-01-16 12:00 | disposition home or self-care (01) ==
LOC: GILAB 09:34
PROVIDERS: Student in an Organized Health Care Education/Training Program; PCP Nurse Practitioner Family; Visit Provider Family Medicine
DX: L97.512 Non-pressure chronic ulcer of other part of right foot with fat layer exposed (principal); L97.423 Non-pressure chronic ulcer of left heel and midfoot with necrosis of muscle; M86.60 Other chronic osteomyelitis, unspecified site; Z98.890 Other specified postprocedural states
CPT/HCPCS: 11042; 11045; 36592; 80076; 82565; 85025; 96365; 97597; 99215; A6252; J2543; J3370; J7050

== ENCOUNTER 2023-01-18 11:30 | Inpatient (IN) | payer MEDICARE, MEDICAID, SELFPAY ==
[2023-01-18] VITALS (33 sets, daily range): BP systolic 125–174; BP diastolic 70–96; PULSE 82–107; RESP 15–24; TEMP 36.2–37.2; O2SAT 88–97
[2023-01-18 11:46] LABS: Glucose Point of Care 533 mg/dL (70-110)
--- NOTE | 2023-01-18 12:07 | ED_ITS ---
HPI - General Adult General: Chief complaint: General Medical Stated complaint: HYPERGLYCEMIA Time Seen by Provider: 01/18/23 11:31 Source: patient Mode of arrival: EMS History of Present Illness: 57-year-old male had a syncopal episode at home. He was hyperglycemic as well he denies any chest pain or shortness of breath he states he feels fine at this time. He will breathing a little bit harder. He has noticed increased swelling but he has chronic swelling to his lower extremities no chest pain no nausea vomiting or diarrhea. He has chronic leg ulcers for which she is receiving antibiotics via PICC line. Onset (ago): day(s) Severity: mild Relieving factors: none Exacerbating factors: none Associated symptoms: Reports dyspnea; Deny chest pain, confusion, cough, diaphoresis, decreased appetite, fevers/chills, headache(s), malaise, nausea, rash, palpitations, seizures, short of breath, syncope, vomiting or weakness Treatments prior to arrival: none Review of Systems Const: Denies: fever(s), chills, fatigue, malaise or diaphoresis ENMT: Denies: throat pain, ear or mastoid pain, nasal discharge or nasal congestion Card: Denies: chest pain, palpitations or syncope Resp: Reports: dyspnea and non-productive cough; Denies: productive cough or wheezing GI: Denies: abdominal pain, nausea or vomiting : Denies: flank pain, dysuria, urinary frequency or urinary urgency Skin/Breast: Denies: rash or pruritus Neuro: Denies: headache(s) or confusion PFS ED PFSH: Medical History (Updated 01/18/23 @ 17:24 by Juan Diego Stokes MD) Acute diastolic heart failure Acute kidney injury superimposed on CKD Aspiration pneumonia Chronic kidney disease 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 Chronic osteomyelitis Chronic osteomyelitis 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 Chronic ulcer of right foot with fat layer exposed CKD (chronic kidney disease) Congestive heart failure COVID Diabetes Diabetic peripheral neuropathy associated with type 2 diabetes mellitus Diabetic ulcer of foot associated with diabetes mellitus due to underlying condition, with fat layer exposed Elevated troponin Hyperkalemia Hyperkalemia Hyperlipidemia Hypoxia Neuropathy NSTEMI (non-ST elevated myocardial infarction) Onychomycosis of nail of digit of hand PVD (peripheral vascular disease) Type 2 diabetes mellitus Type 2 diabetes mellitus with foot ulcer Uncontrolled type 2 diabetes with neuropathy Surgical History H/O circumcision H/O colonoscopy 7 yrs ago Status post debridement of ulcer of heel Family History Brother Cancer Sister Lung disease Mother Heart failure Father Chronic kidney failure Denies family history of Anesthesia complication Bleeding disorder Social History Smoking and tobacco status: former smoker Second hand smoke exposure: No Alcohol intake: never Substance/Drug Use: never Adopted: No Lives independently: Yes Marital status: Single Current occupational status: disabled Physical Exam Const: GENERAL APPEARANCE: cooperative and comfortable ORIENTATION/CONSCIOUSNESS: Yes awake, Yes oriented to person, Yes oriented to place and Yes oriented to time HENMT: COMMON NORMALS: normocephalic, atraumatic and hearing grossly normal bilaterally HEAD & SCALP: normocephalic and atraumatic Resp: COMMON NORMALS: normal respiratory effort, No retractions, No use of accessory muscles and clear to auscultation bilaterally AUSCULTATION: clear to auscultation bilaterally Cardio: COMMON NORMALS: regular rate, regular rhythm and No murmurs present (Cardio) RATE: regular rate RHYTHM: regular rhythm GI: COMMON NORMALS: Soft to palpation and No hepatosplenomegaly present AUS CULTATION: Yes normoactive bowel sounds PALPATION: Yes Soft to palpation, No Tenderness to palpation present (GI), No Guarding due to palpation present (GI) and Yes No hepatosplenomegaly present Extremity: COMMON NORMALS: normal to inspection, capillary refill normal, no clubbing, cyanosis or edema, no calf tenderness and no pedal edema Neuro: SENSORIUM/ORIENTATION: Yes oriented to person, Yes oriented to place and Yes oriented to time Skin: COMMON NORMALS: no rashes or lesions noted GENERAL SKIN EXAM: no rashes or lesions noted Course Vital Signs: Vital signs: Vital Signs Temperature 97.1 F L 01/18/23 11:31 Pulse Rate 84 01/18/23 17:30 Respiratory Rate 21 H 01/18/23 17:30 Blood Pressure 146/76 01/18/23 17:30 Pulse Oximetry 95 01/18/23 17:30 Oxygen Delivery Me thod Nasal Cannula 01/18/23 11:31 Oxygen Flow Rate 2 01/18/23 11:31 MDM - General Adult Medical Decision Making Chest x-ray shows increased pulmonary vascular congestion with underlying infiltrates. Start levofloxacin. pH was 7-8 when he first arrived his breathing is much better. Patient has been given Lasix. Blood sugar improved after insulin. Started on Levaquin and placed on observation Medical Records I reviewed the patient's medical records. Lab Data I reviewed the patient's lab results. 01/18/23 11:15 01/18/23 11:15 Radiology Impressions Chest X-Ray 01/18/23 13:06 IMPRESSION: Cardiomegaly with bilateral pulmonary infiltrates. This is probably due to heart failure with pulmonary edema. Superimposed pneumonia is not excluded. Head CT 01/18/23 13:06 IMPRESSION: 1. No acute intracranial hemorrhage or edema. 2. Moderate atrophy and small vessel ischemic disease. Similar to prior studies. Laboratory Results WBC 9.3 10^3/uL (4.0-10.0) 01/18/23 11:15 RBC 3.47 10^6/uL (4.1-5.3) L 01/18/23 11:15 Hgb 9.4 g/dL (11.7-16.6) L 01/18/23 11:15 Hct 31.2 % (42.0-52.0) L 01/18/23 11:15 MCV 89.9 fl (80-94) 01/18/23 11:15 MCH 27.1 pg (28.0-34.0) L 01/18/23 11:15 MCHC 30.1 g/dL (30.0-36.0) 01/18/23 11:15 RDW 16.6 % (12.1-15.1) H 01/18/23 11:15 Plt Count 175 10^3/cmm (130-400) 01/18/23 11:15 MPV 13.9 fL (7.4-10.4) H 01/18/23 11:15 Neut % (Auto) 76.4 % 01/18/23 11:15 Lymph % (Auto) 12.7 % 01/18/23 11:15 [place] % (Auto) 5.2 % 01/18/23 11:15 Eos % (Auto) 3.4 % 01/18/23 11:15 Baso % (Auto) 1.8 % 01/18/23 11:15 Neut # (Auto) 7.12 10^3/uL (1.8-7.7) 01/18/23 11:15 Lymph # (Auto) 1.2 10^3/uL (0.8-4.8) 01/18/23 11:15 [place] # (Auto) 0.5 10^3/uL (0.2-0.9) 01/18/23 11:15 Eos # (Auto) 0.3 10^3/uL (0.0-0.8) 01/18/23 11:15 Baso # (Auto) 0.2 10^3/uL (0.0-0.1) H 01/18/23 11:15 Nucleated RBC % (auto) 0 % 01/18/23 11:15 Nucleated RBCs # 0.0 /100WBC 01/18/23 11:15 Specimen Type Arterial 01/18/23 15:56 Sample Site Radial, right 01/18/23 15:56 ABG pH 7.30 (7.35-7.45) L 01/18/23 15:56 ABG pCO2 42.0 mmHg (35-45) 01/18/23 15:56 ABG pO2 66.5 mmHg (80.0-100.0) L 01/18/23 15:56 ABG HCO3 20.6 mmol/L (22-26) L 01/18/23 15:56 ABG O2 Saturation 93.3 01/18/23 15:56 ABG Base Excess -5.5 mmol/L (-2.0-2.0) L 01/18/23 15:56 Pedro Test Pos 01/18/23 15:56 A-a O2 Gradient 4.0 mmHg (5-10) L 01/18/23 15:56 Hematocrit 27.8 % (42-52) L 01/18/23 15:56 Hgb O2 Saturation 91.4 % (95-100) L 01/18/23 15:56 Carboxyhemoglobin 1.6 %THgb (0.4-20.1) 01/18/23 15:56 Methemoglobin 0.5 % (0.4-1.5) 01/18/23 15:56 Total Hemoglobin 9.1 g/dL (14-18) L 01/18/23 15:56 Sodium 140.0 mmol/L (131-143) 01/18/23 15:56 Potassium 4.7 mmol/L (3.5-5.0) 01/18/23 15:56 Glucose 251.0 mg/dL (70-115) H 01/18/23 15:56 Ionized Calcium 1.2 mmol/L (1.1-1.4) 01/18/23 15:56 O2 Delivery Device Nc 01/18/23 15:56 O2 Liters/Min 4.0 % 01/18/23 15:56 Auto Apprentice Mechanic ID [place] 01/18/23 15:56 Sodium 138 mmol/L (136-145) 01/18/23 11:15 Potassium 5.2 mmol/L (3.5-5.1) H 01/18/23 11:15 Chloride 105 mmol/L (98-107) 01/18/23 11:15 Carbon Dioxide 20 mmol/L (22-29) L 01/18/23 11:15 Anion Gap 18.2 (5-19) 01/18/23 11:15 BUN 44 mg/dL (6-20) H 01/18/23 11:15 Creatinine 3.8 mg/dL (0.7-1.2) H 01/18/23 11:15 GFR Calculation 16.6 mL/min (90-130) L 01/18/23 11:15 Glucose 291 mg/dL (65-115) H 01/18/23 11:15 POC Glucose 274 mg/dL (70-110) H 01/18/23 17:19 Calculated Osmolality 308 mOsm/kg (285-295) H 01/18/23 11:15 Lactic Acid 0.8 mmol/L (0.5-2.2) 01/18/23 12:27 Calcium 7.9 mg/dL (8.5-10.5) L 01/18/23 11:15 Total Bilirubin 0.4 mg/dL (0.15-1.2) 01/18/23 11:15 AST 12 U/L (0-40) 01/18/23 11:15 ALT 6 U/L (0-41) 01/18/23 11:15 Alkaline Phosphatase 162 U/L (40-130) H 01/18/23 11:15 Total Protein 7.9 g/dL (6.6-8.7) 01/18/23 11:15 Albumin 3.2 g/dL (3.5-5.2) L 01/18/23 11:15 Globulin 4.7 g/dL (1.3-4.6) H 01/18/23 11:15 Serum Ketones Negative (Negative) 01/18/23 11:15 Discharge Plan Discharge Admit Provider: Juan Diego Stokes Condition: Stable Coding Level of Care Code ED Pier Hand Helper for Blaise Beckett
[2023-01-18 12:12] LABS: Basophils # 0.2 10^3/uL (0.0-0.1); Basophils % 1.8 %; Eosinophils # 0.3 10^3/uL (0.0-0.8); Eosinophils % 3.4 %; Hematocrit 31.2 % (42.0-52.0); Hemoglobin 9.4 g/dL (11.7-16.6); Lymphocytes # 1.2 10^3/uL (0.8-4.8); Lymphocytes % 12.7 %; Mean Corpuscular HGB Conc 30.1 g/dL (30.0-36.0); Mean Corpuscular Hemoglobin 27.1 pg (28.0-34.0); Mean Corpuscular Volume 89.9 fl (80-94); Mean Platelet Volume 13.9 fL (7.4-10.4); Monocytes # 0.5 10^3/uL (0.2-0.9); Monocytes % 5.2 %; Neutrophils # 7.12 10^3/uL (1.8-7.7); Neutrophils % 76.4 %; Nucleated Red Blood Cells % 0 %; Platelet Count 175 10^3/cmm (130-400); Red Blood Count 3.47 10^6/uL (4.1-5.3); Red Cell Distribution Width 16.6 % (12.1-15.1); White Blood Count 9.3 10^3/uL (4.0-10.0)
[2023-01-18 12:15] LABS: Glucose Point of Care 290 mg/dL (70-110)
--- NOTE | 2023-01-18 12:16 | PC.NURSE ---
entered room to administer insulin, rechecked BGL prior to administration, repeat bedside glucose noted to be 290. insulin held at this time
--- NOTE | 2023-01-18 12:27 | PC.NURSE ---
Dr. Hagen notified of pt BGL prior to insulin administration. Verbal order received to administer 10 units and to cancel order for 15 units.
[2023-01-18 12:30] LABS: Alanine Aminotransferase 6 U/L (0-41); Albumin Level 3.2 g/dL (3.5-5.2); Alkaline Phosphatase 162 U/L (40-130); Anion Gap 18.2 (5-19); Aspartate Amino Transferase 12 U/L (0-40); Blood Urea Nitrogen 44 mg/dL (6-20); Calcium 7.9 mg/dL (8.5-10.5); Carbon Dioxide 20 mmol/L (22-29); Chloride 105 mmol/L (98-107); Globulin 4.7 g/dL (1.3-4.6); Glomerular Filtration Rate 16.6 mL/min (90-130); Glucose 291 mg/dL (65-115); Osmolality Calculated 308 mOsm/kg (285-295); Potassium 5.2 mmol/L (3.5-5.1); Sodium 138 mmol/L (136-145); Total Bilirubin 0.4 mg/dL (0.15-1.2); Total Protein 7.9 g/dL (6.6-8.7)
--- NOTE | 2023-01-18 12:35 | PC.PHAR ---
pt states he takes care of his own medications-pt states he no longer has home [id number] on hold for 48 hours as of 01/18/23 per pt rx filled 01/16/23 7d/s-pt states takes all 3 of these medications- pepcid 20mg bid filled 12/25/22 90d/s-prilosec 40mg qd filled 12/07/22 90d/s and protonix 40mg daily filled 12/13/22 90d/s-pt states no longer takes cipro 500mg daily filled 12/06/22 60d/s or cefdinir 300mg bid filled 01/07/23 14d/s-notes are made in the pharmacy comments
[2023-01-18 12:40] LABS: Ketone (Acetest) Serum Negative (Negative)
[2023-01-18 12:45] LABS: ABG PCO2 45.4 mmHg (35-45); ABG PH Result 7.28 (7.35-7.45); Alveolar-Arterial Oxygen Gradi 4.5 mmHg (5-10); Arterial Blood Gas Hematocrit 30.1 % (42-52); Base Excess ABG -5.3 mmol/L (-2.0-2.0); Blood Gas Allen Test Pos; Blood Gas Operator Identificat CAK; Blood Gas Sample Site Radial, left; Blood Gas Sample Type Arterial; Carboxyhemoglobin 1.6 %THgb (0.4-20.1); HCO3 ABG 21.3 mmol/L (22-26); HGB O2 Sat 87.7 % (95-100); Ionized Calcium Level - ABG 1.1 mmol/L (1.1-1.4); Methemoglobin 0.1 % (0.4-1.5); Oxygen Device NC; Oxygen Saturation ABG 89.2; PO2 ABG 59.8 mmHg (80.0-100.0); Potassium Level - ABG 4.9 mmol/L (3.5-5.0); Total Hemoglobin 9.8 g/dL (14-18)
[2023-01-18] MEDS: insulin regular-human 100 units/1 mL 10 UNIT IVP (12:48)
[2023-01-18 12:55] LABS: Glucose Point of Care 275 mg/dL (70-110)
[2023-01-18 12:55] LABS: Lactic Sepsis W/Reflex 0.8 mmol/L (0.5-2.2)
--- NOTE | 2023-01-18 13:06 | CT_ITS ---
WS: [id number] CT HEAD NONCONTRAST HISTORY: AMS/syncope TECHNIQUE: Contiguous axial imaging performed through the brain in 2.5 mm imaging. Bone and soft tiss ue windows. Sagittal and coronal reformats reviewed. All CT scans at [facility] use at least one of these dose optimization techniques: automated exposure control; mA and/or kV adjustment per pa tient size (includes targeted exams where dose is matched to clinical indication); or iterative recon struction. DLP: 1194.88 mGy.cm COMPARISON: 02/04/2018 No acute intracranial hemorrhage, midline shift or mass effect. Moderate atrophy with small vessel ischemic changes. Similar to the prior study. No new infarct. Ventricles: Normal size with no hydrocephalus. No inferior displacement of cerebellar tonsils. Paranasal sinuses: As visualized are clear. Mastoid air cells: Well pneumatized. Calvarium and scalp: Skull is intact with no soft tissue edema or swelling. CT/CT head wo con* [id number] IMPRESSION: 1. No acute intracranial hemorrhage or edema. 2. Moderate atrophy and small vessel ischemic disease. Similar to prior studie s.
--- NOTE | 2023-01-18 13:06 | XRR_ITS ---
PROCEDURE INFORMATION: Exam: XR Chest Exam date and time: 01/18/2023 1:26 PM Age: 57 years old Clinical indication: Cough and dyspnea; Additional info: Dyspnea/cough TECHNIQUE: Imaging protocol: Radiologic exam of the chest. Views: 1 view. COMPARISON: CR XR chest 1V portable [id number] 12/03/2022 8:12 PM FINDINGS: Lungs: Bilateral interstitial pulmonary infiltrates are present with patchy perihilar and basilar consolidation/atelectasis. Pleural spaces: Unremarkable. No pleural effusion. No pneumothorax. Heart/Mediastinum: Cardiac silhouette is enlarged but unchanged. Tip of a right arm PICC projects in the SVC. Bones/joints: Unremarkable. XR/XR chest 1V portable [id number] IMPRESSION: Cardiomegaly with bilateral pulmonary infiltrates. This is probably due to heart failure with pulmonary edema. Superimposed pneumonia is not excluded.
[2023-01-18 13:26] LABS: Glucose Point of Care 252 mg/dL (70-110)
[2023-01-18 14:19] LABS: Glucose Point of Care 207 mg/dL (70-110)
[2023-01-18] MEDS: FUROsemide 10 mg/mL SDV 10mL 60 MG IVP (14:28)
--- NOTE | 2023-01-18 14:36 | PC.NURSE ---
IV abx administration pending draw of blood cultures
[2023-01-18] MEDS: levofloxacin-dextrose 5 % 750 MG/150 ML PREMIX 100 MG IV (15:10)
[2023-01-18 16:07] LABS: Arterial Blood Gas Hematocrit 27.8 % (42-52); Base Excess ABG -5.5 mmol/L (-2.0-2.0); Blood Gas Allen Test Pos; Blood Gas Operator Identificat WALCI; Blood Gas Sample Site Radial, right; Blood Gas Sample Type Arterial; Carboxyhemoglobin 1.6 %THgb (0.4-20.1); HCO3 ABG 20.6 mmol/L (22-26); HGB O2 Sat 91.4 % (95-100); Ionized Calcium Level - ABG 1.2 mmol/L (1.1-1.4); Methemoglobin 0.5 % (0.4-1.5); Oxygen Device NC; Oxygen Saturation ABG 93.3; PO2 ABG 66.5 mmHg (80.0-100.0); Potassium Level - ABG 4.7 mmol/L (3.5-5.0); Total Hemoglobin 9.1 g/dL (14-18)
--- NOTE | 2023-01-18 17:02 | PM.HP ---
Providers/Chief Complaint Primary Care Provider: SERAFIN Reza Chief Complaint: HYPERGLYCEMIA History of Present Illness Tim Robison is a 57 year old male with multiple comorbidities including noncompliance, type 2 diabetes mellitus, diabetic foot ulcers including osteomyelitis, peripheral neuropathy, recent non-ST elevation MO with positive cardiac stress test, CKD he was most recently discharged from hospital on January 07. He was admitted and treated for osteomyelitis of the foot and discharged on IV antibiotics being followed up with ID as an outpatient. Currently he is on Zosyn 4.5 g every 12 hourly. He present to the hospital today because of not feeling well. After the patient gave multiple episodes of nausea and vomiting along with episodes of diarrhea since yesterday. Today he is not feeling well to present to the ER with possible episode of syncope at home. On examination patient is lying comfortably in bed, awake and alert moving all limbs on 2 L O2 supplementation able to give his history completely.Patient states he checks his blood sugars daily at home. Lately since his foot infection says blood sugars have been going as high as 300-400. Few blood sugar levels as an outpatient couple of days ago fasting levels were around 40s. Patient states he takes Humalog 5 units every morning, 7 units afternoon, 5 units every afternoon along with Lantus 50 units twice daily. On discharge it seems he was on Lantus 10 units. Blood work in the ER showed a dejaa-uvep-seg 9.3, hemoglobin of 9.4, chemistry showing a sodium of 138, potassium of 5.2, BUN of 44, creatinine of 3.8, ketones negative, ABG on on presentation showing pH of 7.28, PCO2 45.4, PO2 of 59 which had improved to pH of 7.3, PCO2 42, PO2 of 66.5 on 2 L. In the ER he was given IV Lasix 60 mg one-time along with 1 dose of Levaquin. Review of Systems General: Reports: 10 or more systems reviewed and unremarkable except in HPI and below Const: Denies: fever(s), chills, body aches, change in appetite, change in weight, malaise, night sweats, diaphoresis, change in sleep pattern, daytime sleepiness or snoring Eyes: Denies: change in vision, blurry vision, photophobia, eye discomfort or eye discharge ENMT: Denies: throat pain, enlarged tonsils, hoarseness, mouth pain, oral sores, dry mouth, tinnitus, nasal congestion or post nasal drip Card: Denies: chest pain, palpitations, irregular heart rhythm, edema, swelling of feet/ankles, lightheadedness, syncope, pre-syncope, dyspnea on exertion, orthopnea, leg pain with exertion or acrocyanosis Resp: Denies: dyspnea, productive cough, non-productive cough, wheezing, stridor, pain on inspiration, change in phlegm color, hemoptysis or chest congestion GI: Denies: abdominal pain, nausea, vomiting, hematemesis, coffee ground emesis, dysphagia, heartburn, diarrhea, constipation, bloating, GI cramping, change in bowel habits, pain on defecation, hematochezia or melena : Denies: flank pain, difficulty urinating, dysuria, urinary frequency, urinary urgency, urinary hesitancy, urinary dribbling, difficulty starting urination, change in urine stream, nocturia or hematuria Musc: Denies: neck pain, back pain, extremity pain, joint pain, joint swelling, joint redness, joint stiffness or limited range of motion Neuro: Denies: headache(s), numbness in extremities, weakness in extremities, sensory changes, lack of coordination, difficulty walking, frequent falls, dizziness, vertigo, confusion, Slurred speech present, difficulty communicating thoughts or seizure-like activity Psych: Denies: anxiety, depression, mood swings, panic attacks, hopelessness or irritability Endo: Denies: polyuria, polydipsia, tired all the time, cold intolerance, excessive sweating, flushing or heat intolerance Jarrod/Lymph: Denies: easy bruising or easy bleeding All/Imm: Denies: tongue swelling, facial swelling or acute wheezing Medications/Allergies Home Medications Medication Instructions Recorded Confirmed Last Taken Type amlodipine 10 mg tablet 10 mg PO QAM 10/11/20 01/18/23 01/18/23 History gabapentin 300 mg capsule 300 mg PO BEDTIME 10/11/20 01/18/23 01/17/23 History fluticasone 100 mcg-salmeterol 50 1 inh inhalation BID #60 ea 11/02/21 01/18/23 01/09/23 Rx mcg/dose blistr powdr for inhalation (Advair Diskus) omeprazole 40 mg capsule,delayed 40 mg PO QAM 04/16/22 01/18/23 01/18/23 History release blood-glucose meter,continuous #1 ea 04/23/22 01/18/23 01/09/23 Rx (Dexcom G6 Video Poker Floorman) blood-glucose sensor (Dexcom G6 #9 ea 04/23/22 01/18/23 01/09/23 Rx Sensor device) blood-glucose transmitter (Dexcom #3 ea 04/23/22 01/18/23 01/09/23 Rx G6 Transmitter device) albuterol sulfate 90 mcg/actuation 1 puff inhalation Q6H PRN 11/29/22 01/18/23 01/09/23 History aerosol inhaler shortness of breath or wheezing atorvastatin 40 mg tablet 40 mg PO BEDTIME 11/29/22 01/18/23 01/17/23 History famotidine 20 mg tablet 20 mg PO BID 11/29/22 01/18/23 01/18/23 History metoprolol tartrate 100 mg tablet 100 mg PO BID 11/29/22 01/18/23 01/18/23 History pregabalin 200 mg capsule (Lyrica) 200 mg PO TID 11/29/22 01/18/23 01/09/23 History Podus Boot to the Left #1 ea 12/03/22 01/18/23 01/09/23 Rx aspirin 81 mg chewable tablet 81 mg PO QAM #60 tabs 12/06/22 01/18/23 01/18/23 Rx hydralazine 10 mg tablet 10 mg PO BID #60 tabs 12/06/22 01/18/23 01/18/23 Rx pantoprazole 40 mg tablet,delayed 40 mg PO QAM 12/31/22 01/18/23 01/18/23 History release insulin detemir U-100 100 unit/mL 10 unit (0.1 mL) SUBCUT BEDTIME 01/07/23 01/18/23 01/17/23 Rx (3 mL) subcutaneous pen (Levemir #15 mL FlexTouch U-100 Insulin) insulin lispro 100 unit/mL See Rx Instructions .Route 01/07/23 01/18/23 01/18/23 Rx subcutaneous pen (Humalog KwikPen .COMPLEX #15 mL 6 units (U-100) Insulin) piperacillin-tazobactam 4.5 gram 4.5 g IV Q12H 01/11/23 01/18/23 01/17/23 History intravenous solution sodium hypochlorite 0.125 % 1 applic topical DAILY #473 mL 01/16/23 01/18/23 Unknown Rx solution (Dakin's Solution) clopidogrel 75 mg tablet (Plavix) 75 mg PO QAM 01/18/23 01/18/23 01/18/23 History docusate sodium 100 mg capsule 100 mg PO BID PRN Constipation 01/18/23 01/18/23 Unknown History furosemide 20 mg tablet (Lasix) 20 mg PO QAM 01/18/23 01/18/23 01/18/23 History isosorbide mononitrate 30 mg 30 mg PO QAM 01/18/23 01/18/23 01/18/23 History tablet,extended release 24 hr Allergies Allergy/AdvReac Type Severity Reaction Status Date / Time Iodinated Contrast Media Allergy ALGY-Hives Verified 01/18/23 12:22 PFSH Acute PFSH: Medical History (Updated 01/18/23 @ 17:24 by Juan Diego Stokes MD) Acute diastolic heart failure Acute kidney injury superimposed on CKD Aspiration pneumonia Chronic kidney disease 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 Chronic osteomyelitis Chronic osteomyelitis 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 Chronic ulcer of right foot with fat layer exposed CKD (chronic kidney disease) Congestive heart failure COVID Diabetes Diabetic peripheral neuropathy associated with type 2 diabetes mellitus Diabetic ulcer of foot associated with diabetes mellitus due to underlying condition, with fat layer exposed Elevated troponin Hyperkalemia Hyperkalemia Hyperlipidemia Hypoxia Neuropathy NSTEMI (non-ST elevated myocardial infarction) Onychomycosis of nail of digit of hand PVD (peripheral vascular disease) Type 2 diabetes mellitus Type 2 diabetes mellitus with foot ulcer Uncontrolled type 2 diabetes with neuropathy Surgical History H/O circumcision H/O colonoscopy 7 yrs ago Status post debridement of ulcer of heel Family History Brother Cancer Sister Lung disease Mother Heart failure Father Chronic kidney failure Denies family history of Anesthesia complication Bleeding disorder Social History Smoking and tobacco status: former smoker Second hand smoke exposure: No Alcohol intake: never Substance/Drug Use: never Adopted: No Lives independently: Yes Marital status: Single Current occupational status: disabled Vitals/I&O/Wt Last Vital Signs Temp 97.1 F L 01/18/23 11:31 Pulse 82 01/18/23 16:00 Resp 17 01/18/23 16:00 BP 147/74 01/18/23 16:00 Pulse Ox 94 01/18/23 16:00 O2 Del Method Nasal Cannula 01/18/23 11:31 O2 Flow Rate 2 01/18/23 11:31 Weight last 48 hrs Weight 135.171 kg Physical Exam Narrative: General: No acute distress, AO x3, chronically sick appearing, pallor present, on 2 L oxygen supplementation HEENT: PERRLA, pupils bilaterally equal and reactive Chest: Normal vesicular breath sounds, coarse crackles and rhonchi present in right lower zone, equal good air entry bilaterally CVS: S1-S2 regular, no murmurs, no tachycardia, no gallops, no rubs Abdomen: Soft, nontender, no organomegaly, bowel sounds present Neuro: No focal deficits, no facial deformity, AO x3, power 5/5 in all limbs Data 01/18/23 11:15 01/18/23 11:15 Micro: Microbiology 01/18/23 15:07 Blood Culture - Preliminary Blood SPECIMEN COLLECTED 01/18/23 14:45 Blood Culture - Preliminary Blood SPECIMEN COLLECTED A&P Assessment and plan (1) Vomiting: (2) Diarrhea: (3) Hyperglycemia: (4) Hypoxia: (5) Pneumonia: (6) Osteomyelitis: (7) Type 2 diabetes mellitus: (8) Metabolic acidosis: Plan Vomiting and diarrhea: Most likely in setting of hyperglycemia the cannot rule out gastroenteritis versus C. difficile as patient is on antibiotics. Check C. difficile. Hyperglycemia: With high anion gap metabolic acidosis. Ketones negative. DKA unlikely. Insulin sliding scale at moderate dose protocol. Lantus 20 units dose nightly. There is a confusion regarding his home dose of Lantus. We will continue to monitor and add accordingly. Gentle IV hydration with normal saline at 75 cc/h for 1 bag while monitoring for fluid overload. Recent A1c 8.9. Hypoxia: Most likely in setting of pneumonia. Cannot rule out aspiration pneumonia given multiple episodes of vomiting yesterday. Does have history of diastolic heart failure. Most recent EF 55% on recent admit. Given 60 mg of IV Lasix in the ER. Oxygen supplementation keeping saturation over 90%. DuoNebs every 6 hour, budesonide twice daily. Check sputum culture, MRSA swab, blood cultures. For now continue with home dose of Zosyn. Add vancomycin. Will discontinue vancomycin if MRSA negative. Osteomyelitis: Recent admission. Continue with Zosyn. Patient is to finish 5 more weeks of antibiotics. Follows up with ID and podiatry as an outpatient. CAD: Recent admission with non-ST elevation MO: Continue with home dose of aspirin, statin, Plavix, beta-sharif, Imdur. Appreciate recent A1c and lipid panel. Hypertension: Goal blood pressure less than 140/90 mmHg. Continue with home dose of hydralazine, Imdur, metoprolol. Hold off on amlodipine for now. Will restart if blood pressures are higher. CKD: Baseline creatinine 3-4.5. Creatinine at baseline now. Medical reconstruction done for nephrotoxic drugs. Monitor BMP daily. Full code. Renal nondialysis diabetic diet. Protonix for PUD prophylaxis Heparin for DVT prophylaxis. Discharge planning: Discussed in detail with the patient. Discussed that unfortunately patient has significant osteomyelitis for which she requires wound care, antibiotics and with recurrent admissions within last 1 month it would be safer for him to at least go to prison a couple of weeks for closer monitoring. Patient for now is agreeable. States if insurance will pay for his prison stay he is happy to go. We will alert case management. Attestations Medical Necessity Statement*: Admission for more than 2 midnights for management of vomiting, diarrhea, hyperglycemia with metabolic acidosis without DKA, hypoxia secondary to possible aspiration pneumonia, osteomyelitis Diagnoses Vomiting R11.10 Diarrhea R19.7 Hyperglycemia R73.9 Hypoxia R09.02 Pneumonia J18.9 Osteomyelitis M86.9 Type 2 diabetes mellitus E11.9 Metabolic acidosis E87.20
[2023-01-18 17:21] LABS: Glucose Point of Care 274 mg/dL (70-110)
--- NOTE | 2023-01-18 17:46 | PC.NURSE ---
attempted to call report to med surg, nurse unavailable at this time and will call ED back for report
--- NOTE | 2023-01-18 18:20 | PC.PHAR ---
PATIENT WAS PREVIOUSLY DOSED ON 1000MG Q48 HOURS. WE WILL GIVE 1000 MG NOW AND CHECK TROUGH BEFORE NEXT DOSE Pharmacokinetic dosing service Date: Time: Objective: Patient: Floor: Age: 57 yo Serum creatinine: 3.8 mg/dL Height: 68.9 Inches Weight (kg): 135 Diagnosis: Relevant medical/social history: Cultures and sensitivities: Other labs: Assessment: IBW (kg): 70.47 Dosing wt(kg): 135 Estimated Creatinine clearance (ml/min): 29.9 CRCL method: Cockcroft and Gault using adjusted body weight Drug selected: Vancomycin Loading dose (mg): Vd (liters): 94.5 (factor used: 0.7 L/kg) Anthony (hr-1): 0.029 Half life (hrs): 23.90 CLvanco=?? 2.740 L/hr Recommended dose: 1500 mg Interval: 24 hrs Infusion time (hrs): 1 Predicted peak (mcg/mL): 31.2 Predicted trough (mcg/mL): 16.01 Total body weight is being used for vancomycin dosing. Renal function is stable [ ] /unstable [ ] Recommendations: Give Vancomycin 1500 mg q 24 hrs with an expected Cpeak of 31.2 mcg/ml and an expected Ctrough of 16.01 mcg/ml AUC 0-24 /MOLLY Data: MOLLY 0.5 mcg/mL:?? AUC/MOLLY:? 1094.9 MOLLY 1.0 mcg/mL:?? AUC/MOLLY:? 547.4 --------- MOLLY 1.5 mcg/mL:?? AUC/MOLLY:? 365.0 MOLLY 2.0 mcg/mL:?? AUC/MOLLY:? 273.7 Renal dosing of other antibiotics (review renal dosing of other medications and list guidelines here): Thank you for the consult, will continue to follow. Signature:
--- NOTE | 2023-01-18 18:41 | PC.NURSE ---
Report called to Erma on Med Surg
[2023-01-18] MEDS: vancomycin 1,000 MG in sodium chloride 0.9% 250 ML 250 MG IV (18:51)
--- NOTE | 2023-01-18 19:12 | PC.NURSE ---
report given to SALOMÓN Kaiser to assume care
[2023-01-18 20:00] LABS: Lactic Sepsis W/Reflex 0.8 mmol/L (0.5-2.2)
[2023-01-18] MEDS: atorvastatin 40 mg Tablet PO (20:20)
[2023-01-18] MEDS: hyDRALAzine 10 mg Tablet PO (20:20)
[2023-01-18] MEDS: heparin 5,000 unit/mL INJ 1 mL 5000 UNIT SUBCUT (20:20)
[2023-01-18] MEDS: pregabalin 100 mg Capsule 200 MG PO (20:21)
[2023-01-18] MEDS: sodium chloride 0.9% 1,000 ML 75 ML IV (20:21)
[2023-01-18 20:32] LABS: Glucose Point of Care 256 mg/dL (70-110)
[2023-01-18] MEDS: insulin lispro 100 unit/1 mL SUBCUT (20:54)
[2023-01-18] MEDS: piperacillin-tazobactam 4.5 GM in sodium chloride 0.9% (plus) 50 ML IV (20:54)
[2023-01-18] MEDS: insulin glargine 100 units/1 mL 20 UNIT SUBCUT (20:55)
[2023-01-18 21:30] LABS: Vitamin B12 697 pg/mL (232-1245)
[2023-01-19] VITALS: BP 157/80; PULSE 75; RESP 16; TEMP 36.4; O2SAT 97
[2023-01-19 03:18] LABS: Folate Level 7.6 ng/mL (4.5-32.2)
[2023-01-19 03:43] VITALS: BP 148/79; PULSE 80; RESP 16; TEMP 36.4; O2SAT 94
[2023-01-19 03:54] LABS: Urine Appearance Clear (CLEAR); Urine Color Yellow (Yellow); pH Urine 6 (5-7)
[2023-01-19 03:55] LABS: Add Urine Microscopic? YES; Bilirubin Urine Neg (Negative); Blood Urine 2+ (Negative); Glucose Urine UA 2+ (Normal); Ketones Urine Negative (Negative); Leukocyte Esterase Urine Negative (Negative); Nitrate Urine Negative (Negative); Protein Urine 3+ (Negative); Urobilinogen Urine Norm (Negative)
[2023-01-19 03:56] LABS: RBC Urine 25-40 /hpf (0-2); Squamous Epithelial Cell Urine 0-4 /hpf (0-5); WBC Urine 0-4 /hpf (0-5)
[2023-01-19 03:57] LABS: Add Urine Culture? Yes
[2023-01-19 03:58] LABS: Bacteria Urine 2+ /hpf
[2023-01-19 05:07] LABS: Potassium, Radom Urine 16 mmol/L; Urine Random Chloride 89 mmol/L; Urine Random Sodium 110 mmol/L
[2023-01-19] MEDS: aspirin 81 mg Chew Tablet PO (05:45)
[2023-01-19] MEDS: isosorbide mononitrate ER 30 mg Tablet PO (05:45)
[2023-01-19] MEDS: pantoprazole DR 40 mg Tablet PO (05:46)
[2023-01-19 05:58] LABS: Basophils # 0.1 10^3/uL (0.0-0.1); Basophils % 1.2 %; Eosinophils # 0.3 10^3/uL (0.0-0.8); Eosinophils % 3.2 %; Hematocrit 27.2 % (42.0-52.0); Hemoglobin 8.1 g/dL (11.7-16.6); Lymphocytes % 12.4 %; Mean Corpuscular HGB Conc 29.8 g/dL (30.0-36.0); Mean Corpuscular Hemoglobin 27.3 pg (28.0-34.0); Mean Corpuscular Volume 91.6 fl (80-94); Monocytes # 0.5 10^3/uL (0.2-0.9); Monocytes % 5.9 %; Neutrophils # 6.23 10^3/uL (1.8-7.7); Neutrophils % 76.8 %; Nucleated Red Blood Cells % 0 %; Platelet Count 146 10^3/cmm (130-400); Red Blood Count 2.97 10^6/uL (4.1-5.3); Red Cell Distribution Width 16.6 % (12.1-15.1); White Blood Count 8.1 10^3/uL (4.0-10.0)
[2023-01-19 06:15] LABS: Alanine Aminotransferase < 5 U/L (0-41); Albumin Level 2.6 g/dL (3.5-5.2); Alkaline Phosphatase 117 U/L (40-130); Anion Gap 17.8 (5-19); Aspartate Amino Transferase 10 U/L (0-40); Blood Urea Nitrogen 39 mg/dL (6-20); Calcium 7.9 mg/dL (8.5-10.5); Carbon Dioxide 19 mmol/L (22-29); Chloride 107 mmol/L (98-107); Globulin 3.8 g/dL (1.3-4.6); Glomerular Filtration Rate 16.6 mL/min (90-130); Glucose 145 mg/dL (65-115); Magnesium 2.1 mg/dL (1.7-2.3); Osmolality Calculated 300 mOsm/kg (285-295); Phosphorus 5.4 mg/dL (2.5-4.5); Potassium 4.8 mmol/L (3.5-5.1); Sodium 139 mmol/L (136-145); Total Bilirubin 0.3 mg/dL (0.15-1.2); Total Protein 6.4 g/dL (6.6-8.7)
[2023-01-19 06:21] LABS: Glucose Point of Care 144 mg/dL (70-110)
[2023-01-19 08:00] VITALS: BP 127/71; PULSE 78; RESP 16; TEMP 36.7; O2SAT 96
[2023-01-19] MEDS: insulin lispro 100 unit/1 mL SUBCUT ×2 (08:40→11:57)
[2023-01-19] MEDS: heparin 5,000 unit/mL INJ 1 mL 5000 UNIT SUBCUT (08:40)
[2023-01-19] MEDS: hyDRALAzine 10 mg Tablet PO (08:40)
[2023-01-19] MEDS: metoprolol tartrate 50 mg Tablet 100 MG PO (08:40)
[2023-01-19] MEDS: piperacillin-tazobactam 4.5 GM in sodium chloride 0.9% (plus) 50 ML IV (08:49)
[2023-01-19] MEDS: pregabalin 100 mg Capsule 200 MG PO ×2 (08:50→15:16)
[2023-01-19 11:46] LABS: Glucose Point of Care 179 mg/dL (70-110)
[2023-01-19 11:57] VITALS: BP 140/80; PULSE 72; RESP 17; TEMP 36.6; O2SAT 94
--- NOTE | 2023-01-19 15:00 | P.DS_ITS ---
Discharge Providers Date of Admission: 01/18/23 17:27 Date of Discharge: January 19, 2023 Attending Provider at Admission: Juan Diego Stokes MD Attending Provider at Discharge: Juan Diego Stokes MD Primary Care Provider: SERAFIN Reza Diagnoses at Discharge Discharge Diagnosis (1) Vomiting: Status: Acute (2) Diarrhea: Status: Acute (3) Hyperglycemia: Status: Acute (4) Hypoxia: Status: Acute (5) Pneumonia: Status: Acute (6) Osteomyelitis: Status: Acute (7) Type 2 diabetes mellitus: Status: Acute (8) Metabolic acidosis: Status: Acute Reason for Visit Reason for Visit: HYPERGLYCEMIA Hospital Course Hospital Course Tim Robison is a 57 year old male with multiple comorbidities including noncompliance, type 2 diabetes mellitus, diabetic foot ulcers including osteomyelitis, peripheral neuropathy, recent non-ST elevation [place] with positive cardiac stress test, CKD he was most recently discharged from hospital on January 07.? He was admitted and treated for osteomyelitis of the foot and discharged on IV antibiotics being followed up with ID as an outpatient.? Currently he is on Zosyn 4.5 g every 12 hourly. He present to the hospital today because of not feeling well.? After the patient gave multiple episodes of nausea and vomiting along with episodes of diarrhea since yesterday.? Today he is not feeling well to present to the ER with poss ible episode of syncope at home.? On examination patient is lying comfortably in bed, awake and alert moving all limbs on 2 L O2 supplementation able to give his history completely.Patient states he checks his blood sugars daily at home.? Lately since his foot infection says blood sugars have been going as high as 300-400.? Few blood sugar levels as an outpatient couple of days ago fasting levels were around 40s.? Patient states he takes Humalog 5 units every morning, 7 units afternoon, 5 units every afternoon along with Lantus 50 units twice daily.? On discharge it seems he was on Lantus 10 units. Blood work in the ER showed a [id number]-yzia-[id number] 9.3, hemoglobin of 9.4, chemistry showing a sodium of 138, potassium of 5.2, BUN of 44, creatinine of 3.8, ketones negative, ABG on on presentation showing pH of 7.28, PCO2 45.4, PO2 of 59 which had improved to pH of 7.3, PCO2 42, PO2 of 66.5 on 2 L. In the ER he was given IV Lasix 60 mg one-time along with 1 dose of Levaquin. Patient was admitted to the hospital further evaluation and management. On admission he was found to have uncontrolled hyperglycemia along with metabolic acidosis without ketones. He was managed with gentle IV hydration while monitoring for fluid overload. There are some concerns for pneumonia on admission. Blood cultures during hospitalization remain negative and MRSA came back negative as well. It is believed his symptoms of nausea and vomiting are most likely secondary to uncontrolled hyperglycemia. Patient states his blood sugars have been higher since he has not been using his Dexcom which he should be receiving later next week. For now he has been advised to be take Levemir 20 units nightly and insulin Humalog as per sliding scale. He is advised to check his blood sugars daily and maintain a blood sugar diary. He is to continue using his Zosyn as before. Vancomycin has been discontinued as MRSA came back negative. All his other medications have been continued except amlodipine. Safe discharge plan was discussed in detail with the patient. He was again advised and counseled to go to SNF for further rehabitation while he remains on antibiotics to prevent him from amputation though he continued to refuse. Home health is being arranged. Physical Exam Narrative: General: No acute distress, AO x3, chronically sick appearing, pallor present, on 2 L oxygen supplementation HEENT: PERRLA, pupils bilaterally equal and reactive Chest: Normal vesicular breath sounds, coarse crackles and rhonchi present in right lower zone, equal good air entry bilaterally CVS: S1-S2 regular, no murmurs, no tachycardia, no gallops, no rubs Abdomen: Soft, nontender, no organomegaly, bowel sounds present Neuro: No focal deficits, no facial deformity, AO x3, power 5/5 in all limbs Discharge Data Studies Completed and Pending Completed Studies During Hospitalization Category Date Time Status CT head wo con* [id number] Stat Cat Scan 01/18/23 13:06 Completed XR chest 1V portable [id number] Stat Exams 01/18/23 13:06 Completed Pending at discharge Category Date Time Status Blood Culture Stat Lab 01/18/23 15:07 Results Clostridioides Difficile PCR Routine Lab 01/18/23 19:42 Ordered Enteric Bacterial Panel by PCR Routine Lab 01/18/23 19:42 Ordered Enteric Parasite Panel by PCR Routine Lab 01/18/23 19:42 Ordered Immunochemical Fecal OCB Routine Lab 01/18/23 19:42 Ordered Lactoferrin Routine Lab 01/18/23 19:42 Ordered Urinalysis Stat Lab 01/18/23 12:02 Uncollected Urine Culture Routine Lab 01/19/23 03:30 Received Vancomycin Trough Timed Lab 01/19/23 17:00 Ordered Radiology Impressions Chest X-Ray 01/18/23 13:06 IMPRESSION: Cardiomegaly with bilateral pulmonary infiltrates. This is probably due to heart failure with pulmonary edema. Superimposed pneumonia is not excluded. Head CT 01/18/23 13:06 IMPRESSION: 1. No acute intracranial hemorrhage or edema. 2. Moderate atrophy and small vessel ischemic disease. Similar to prior studies. Laboratory Results WBC 8.1 10^3/uL (4.0-10.0) 01/19/23 05:43 RBC 2.97 10^6/uL (4.1-5.3) L 01/19/23 05:43 Hgb 8.1 g/dL (11.7-16.6) L 01/19/23 05:43 Hct 27.2 % (42.0-52.0) L 01/19/23 05:43 MCV 91.6 fl (80-94) 01/19/23 05:43 MCH 27.3 pg (28.0-34.0) L 01/19/23 05:43 MCHC 29.8 g/dL (30.0-36.0) L 01/19/23 05:43 RDW 16.6 % (12.1-15.1) H 01/19/23 05:43 Plt Count 146 10^3/cmm (130-400) 01/19/23 05:43 MPV 13.0 fL (7.4-10.4) H 01/19/23 05:43 Neut % (Auto) 76.8 % 01/19/23 05:43 Lymph % (Auto) 12.4 % 01/19/23 05:43 Cataño % (Auto) 5.9 % 01/19/23 05:43 Eos % (Auto) 3.2 % 01/19/23 05:43 Baso % (Auto) 1.2 % 01/19/23 05:43 Neut # (Auto) 6.23 10^3/uL (1.8-7.7) 01/19/23 05:43 Lymph # (Auto) 1.0 10^3/uL (0.8-4.8) 01/19/23 05:43 Cataño # (Auto) 0.5 10^3/uL (0.2-0.9) 01/19/23 05:43 Eos # (Auto) 0.3 10^3/uL (0.0-0.8) 01/19/23 05:43 Baso # (Auto) 0.1 10^3/uL (0.0-0.1) 01/19/23 05:43 Nucleated RBC % (auto) 0 % 01/19/23 05:43 Nucleated RBCs # 0.0 /100WBC 01/19/23 05:43 Specimen Type Arterial 01/18/23 15:56 Sample Site Radial, right 01/18/23 15:56 ABG pH 7.30 (7.35-7.45) L 01/18/23 15:56 ABG pCO2 42.0 mmHg (35-45) 01/18/23 15:56 ABG pO2 66.5 mmHg (80.0-100.0) L 01/18/23 15:56 ABG HCO3 20.6 mmol/L (22-26) L 01/18/23 15:56 ABG O2 Saturation 93.3 01/18/23 15:56 ABG Base Excess -5.5 mmol/L (-2.0-2.0) L 01/18/23 15:56 Pedro Test Pos 01/18/23 15:56 A-a O2 Gradient 4.0 mmHg (5-10) L 01/18/23 15:56 Hematocrit 27.8 % (42-52) L 01/18/23 15:56 Hgb O2 Saturation 91.4 % (95-100) L 01/18/23 15:56 Carboxyhemoglobin 1.6 %THgb (0.4-20.1) 01/18/23 15:56 Methemoglobin 0.5 % (0.4-1.5) 01/18/23 15:56 Total Hemoglobin 9.1 g/dL (14-18) L 01/18/23 15:56 Sodium 140.0 mmol/L (131-143) 01/18/23 15:56 Potassium 4.7 mmol/L (3.5-5.0) 01/18/23 15:56 Glucose 251.0 mg/dL (70-115) H 01/18/23 15:56 Ionized Calcium 1.2 mmol/L (1.1-1.4) 01/18/23 15:56 O2 Delivery Device Nc 01/18/23 15:56 O2 Liters/Min 4.0 % 01/18/23 15:56 Iap Displays Analyst ID Walci 01/18/23 15:56 Sodium 139 mmol/L (136-145) 01/19/23 05:43 Potassium 4.8 mmol/L (3.5-5.1) 01/19/23 05:43 Chloride 107 mmol/L (98-107) 01/19/23 05:43 Carbon Dioxide 19 mmol/L (22-29) L 01/19/23 05:43 Anion Gap 17.8 (5-19) 01/19/23 05:43 BUN 39 mg/dL (6-20) H 01/19/23 05:43 Creatinine 3.8 mg/dL (0.7-1.2) H 01/19/23 05:43 GFR Calculation 16.6 mL/min (90-130) L 01/19/23 05:43 Glucose 145 mg/dL (65-115) H 01/19/23 05:43 POC Glucose 179 mg/dL (70-110) H 01/19/23 11:36 Calculated Osmolality 300 mOsm/kg (285-295) H 01/19/23 05:43 Lactic Acid 0.8 mmol/L (0.5-2.2) 01/18/23 18:40 Calcium 7.9 mg/dL (8.5-10.5) L 01/19/23 05:43 Phosphorus 5.4 mg/dL (2.5-4.5) H 01/19/23 05:43 Magnesium 2.1 mg/dL (1.7-2.3) 01/19/23 05:43 Total Bilirubin 0.3 mg/dL (0.15-1.2) 01/19/23 05:43 AST 10 U/L (0-40) 01/19/23 05:43 ALT < 5 U/L (0-41) 01/19/23 05:43 Alkaline Phosphatase 117 U/L (40-130) 01/19/23 05:43 C-Reactive Protein 18.0 mg/L (0.0-4.9) H 01/18/23 18:40 Total Protein 6.4 g/dL (6.6-8.7) L 01/19/23 05:43 Albumin 2.6 g/dL (3.5-5.2) L 01/19/23 05:43 Globulin 3.8 g/dL (1.3-4.6) 01/19/23 05:43 Vitamin B12 697 pg/mL (232-1245) 01/18/23 11:15 Folate 7.6 ng/mL (4.5-32.2) 01/18/23 23:20 Urine Color Yellow (Yellow) 01/19/23 03:30 Urine Appearance Clear (CLEAR) 01/19/23 03:30 Urine pH 6 (5-7) 01/19/23 03:30 Ur Specific [place] 1.010 (1.005-1.030) 01/19/23 03:30 Urine Protein 3+ (Negative) H 01/19/23 03:30 Urine Glucose (UA) 2+ (Normal) H 01/19/23 03:30 Urine Ketones Negative (Negative) 01/19/23 03:30 Urine Blood 2+ (Negative) H 01/19/23 03:30 Urine Nitrate Negative (Negative) 01/19/23 03:30 Urine Bilirubin Neg (Negative) 01/19/23 03:30 Urine Urobilinogen Norm mg/dL (Negative) 01/19/23 03:30 Ur Leukocyte Esterase Negative (Negative) 01/19/23 03:30 Urine RBC 25-40 /hpf (0-2) H 01/19/23 03:30 Urine WBC 0-4 /hpf (0-5) H 01/19/23 03:30 Ur Squamous Epith Cells 0-4 /hpf (0-5) H 01/19/23 03:30 Amorphous Sediment Not Reportable 01/19/23 03:30 Urine Bacteria 2+ /hpf (NONE) H 01/19/23 03:30 Ur Random Sodium 110 mmol/L 01/19/23 03:30 Ur Random Potassium 16 mmol/L 01/19/23 03:30 Ur Random Chloride 89 mmol/L 01/19/23 03:30 Serum Ketones Negative (Negative) 01/18/23 11:15 Vitals Last Vital Signs Temp 97.8 F 01/19/23 11:57 Pulse 72 01/19/23 11:57 Resp 17 01/19/23 11:57 BP 140/80 01/19/23 11:57 Pulse Ox 94 01/19/23 11:57 O2 Del Method Nasal Cannula 01/18/23 23:40 O2 Flow Rate 2 01/19/23 08:00 Discharge Plan Discharge Patient Disposition: Home Health Service Condition: Stable Prescriptions: Continued gabapentin 300 mg capsule 300 mg PO BEDTIME (DME) Dexcom G6 Sensor Device See Rx Instructions .Route Qty: 9 3RF Rx Instructions: As directed (DME) Dexcom G6 Block Engraver Misc See Rx Instructions .Route Qty: 1 0RF Rx Instructions: As directed (DME) Dexcom G6 Transmitter Device See Rx Instructions .Route Qty: 3 3RF Rx Instructions: As directed Dakin's Solution 0.125 % solution 1 applic topical DAILY Qty: 473 0RF (DME) Podus Boot to the Left See Rx Instructions .Route .MEDSUPPLY Qty: 1 0RF Rx Instructions: As directed J P & O- Patient is in Hospital Cardiac Stepdown Unit room 105-1 fluticasone propion-salmeterol [Advair Diskus] 100-50 mcg/dose blister with device 1 inh inhalation BID Qty: 60 0RF omeprazole 40 mg capsule,delayed release(DR/EC) 40 mg PO QAM atorvastatin 40 mg tablet 40 mg PO BEDTIME metoprolol tartrate 100 mg tablet 100 mg PO BID albuterol sulfate 90 mcg/actuation HFA aerosol inhaler 1 puff inhalation Q6H PRN (Reason: shortness of breath or wheezing) pregabalin [Lyrica] 200 mg capsule 200 mg PO TID famotidine 20 mg tablet 20 mg PO BID aspirin 81 mg Tablet,Chewable 81 mg PO QAM Qty: 60 0RF hydralazine 10 mg tablet 10 mg PO BID Qty: 60 0RF pantoprazole 40 mg Tablet,Delayed Release (Dr/Ec) 40 mg PO QAM insulin lispro [Humalog KwikPen Insulin] 100 unit/mL insulin pen See Rx Instructions .ROUTE .COMPLEX Qty: 15 0RF Rx Instructions: Inject, subcut, 3 times daily, after meals, based on sliding scale provided piperacillin-tazobactam 4.5 gram Recon Soln 4.5 g IV Q12H Rx Instructions: on hold for 48 hours as of 01/18/23 per pt isosorbide mononitrate 30 mg tablet extended release 24 hr 30 mg PO QAM Plavix 75 mg tablet 75 mg PO QAM docusate sodium 100 mg capsule 100 mg PO BID PRN (Reason: Constipation) Changed Lasix 20 mg tablet 40 mg PO QAM Qty: 60 0RF Levemir FlexTouch U-100 Insuln 100 unit/mL (3 mL) insulin pen 20 unit SUBCUT BEDTIME Qty: 15 0RF Discontinued amlodipine 10 mg tablet 10 mg PO QAM Discharge Orders: Discharge Order (Routine); Ordered 01/19/23 Ordered By: Juan Diego Stokes Referrals: Vidhi Gillette FNP [Primary Care Provider] - 4-7 days Patient Instructions: Opioid Safety Activity Restrictions/Additional Instructions: Check your blood sugars daily before each meal at home and maintain a blood sugar diary and follow-up with a primary care provider within next 1 week for further adjustment of insulin. For now take Levemir 20 units nightly, Humalog as per insulin sliding scale provided to you. Continue using Zosyn every day twice daily to finish a course of antibiotics. Continue with weekly labs as per last discharge. Please follow-up with your set appointments as before. Continue oral medications as before than amlodipine. Discharge Attestations Time Spent in Discharge Care*: greater than 30 min Specific Discharge Activities: educating patient, discussing with pcp/other providers, discussing with director case management/social workers/dc planners, documenting/other paperwork and evaluating patient/reviewing data Status at Discharge: Cognitive status at discharge: cognitively intact , Behavioral status at discharge: cooperative , Functional status at discharge: other assisted ambulation , Overall status at discharge: patient is back to baseline Quality Metrics Clinical Quality Measures [ No reported AMI, CVA or VTE this stay] Coding Level of Care Code 08695 Total time (in minutes) for Discharge: 50 Diagnoses Vomiting R11.10 Diarrhea R19.7 Hyperglycemia R73.9 Hypoxia R09.02 Pneumonia J18.9 Osteomyelitis M86.9 Type 2 diabetes mellitus E11.9 Metabolic acidosis E87.20
[2023-01-19 17:24] VITALS: BP 140/80; PULSE 72; RESP 17; TEMP 36.6; O2SAT 94
== END 2023-01-19 17:25 | disposition home health service (06) | DRG 637 ==
LOC: ER 12:09 → MEDSURG 17:27
PROVIDERS: Admitting Provider Student in an Organized Health Care Education/Training Program; Emergency Provider Family Medicine; PCP Nurse Practitioner Family; Visit Provider Student in an Organized Health Care Education/Training Program
DX: E11.65 Type 2 diabetes mellitus with hyperglycemia (principal); J69.0 Pneumonitis due to inhalation of food and vomit; I13.0 Hypertensive heart and chronic kidney disease with heart failure and stage 1 through stage 4 chronic kidney disease, or unspecified chronic kidney disease; M86.672 Other chronic osteomyelitis, left ankle and foot; I50.32 Chronic diastolic (congestive) heart failure; E87.20 Acidosis, unspecified; E11.69 Type 2 diabetes mellitus with other specified complication; E11.22 Type 2 diabetes mellitus with diabetic chronic kidney disease; E11.42 Type 2 diabetes mellitus with diabetic polyneuropathy; N18.9 Chronic kidney disease, unspecified; T50.996A Underdosing of other drugs, medicaments and biological substances, initial encounter; Z91.128 Patient's intentional underdosing of medication regimen for other reason; I25.2 Old myocardial infarction; Z79.82 Long term (current) use of aspirin; Z79.4 Long term (current) use of insulin; Z79.02 Long term (current) use of antithrombotics/antiplatelets; Z86.16 Personal history of COVID-19; E78.5 Hyperlipidemia, unspecified; Y92.019 Unspecified place in single-family (private) house as the place of occurrence of the external cause
CPT/HCPCS: 36415; 36416; 36600; 70450; 71045; 80051; 80053; 81001; 82009; 82330; 82436; 82607; 82746; 82805; 82962; 83605; 83735; 84100; 84133; 84300; 85025; 86140; 86403; 87040; 87086; 87449; 87641; 96365; 96372; 96374; 96375; 99284; 99285; J1644; J1815; J1940; J1956; J2543; J3370; J7030; J7050

== ENCOUNTER 2023-01-23 09:30 | Outpatient (RCR) | payer MEDICARE, MEDICAID, SELFPAY ==
[2023-01-23 09:58] LABS: Basophils # 0.1 10^3/uL (0.0-0.1); Basophils % 1.3 %; Eosinophils # 0.7 10^3/uL (0.0-0.8); Eosinophils % 7.7 %; Hematocrit 28.1 % (42.0-52.0); Hemoglobin 8.5 g/dL (11.7-16.6); Lymphocytes # 1.2 10^3/uL (0.8-4.8); Lymphocytes % 12.3 %; Mean Corpuscular HGB Conc 30.2 g/dL (30.0-36.0); Mean Corpuscular Hemoglobin 27.5 pg (28.0-34.0); Mean Corpuscular Volume 90.9 fl (80-94); Mean Platelet Volume 12.9 fL (7.4-10.4); Monocytes # 0.6 10^3/uL (0.2-0.9); Monocytes % 6.6 %; Neutrophils # 6.68 10^3/uL (1.8-7.7); Neutrophils % 71.7 %; Nucleated Red Blood Cells % 0 %; Platelet Count 151 10^3/cmm (130-400); Red Blood Count 3.09 10^6/uL (4.1-5.3); Red Cell Distribution Width 17.9 % (12.1-15.1); White Blood Count 9.3 10^3/uL (4.0-10.0)
[2023-01-23 10:21] LABS: Alanine Aminotransferase 7 U/L (0-41); Alkaline Phosphatase 133 U/L (40-130); Aspartate Amino Transferase 17 U/L (0-40); Globulin 4.3 g/dL (1.3-4.6); Glomerular Filtration Rate 14.8 mL/min (90-130); Total Bilirubin 0.3 mg/dL (0.15-1.2); Total Protein 7.3 g/dL (6.6-8.7)
[2023-01-23 10:32] VITALS: BP 161/87; PULSE 74; RESP 18; TEMP 36.2; O2SAT 97
--- NOTE | 2023-01-23 10:35 | PC.NURSE ---
Pt to GI infusions for PICC dressing change and lab draw. Tolerated well.
== END 2023-01-23 12:00 | disposition home or self-care (01) ==
LOC: GILAB 09:30
PROVIDERS: Student in an Organized Health Care Education/Training Program; PCP Nurse Practitioner Family; Visit Provider Family Medicine
DX: Z45.2 Encounter for adjustment and management of vascular access device (principal); E11.621 Type 2 diabetes mellitus with foot ulcer; L89.623 Pressure ulcer of left heel, stage 3; L89.892 Pressure ulcer of other site, stage 2
CPT/HCPCS: 11042; 11045; 36592; 80076; 82565; 85025; A6021; A6251; A6252

== ENCOUNTER 2023-01-25 17:08 | Emergency (ER) | payer MEDICARE, MEDICAID, SELFPAY ==
[2023-01-25 17:19] VITALS: BP 175/94; PULSE 72; RESP 24; TEMP 36.1; O2SAT 95; BMI 41.3
--- NOTE | 2023-01-25 17:27 | W.ED.GENADLT ---
Documented by User: Osiel Hagen DO 01/26/23 05:46 HPI - General Adult General: Chief complaint: Nausea/Vomiting/Diarrhea Stated complaint: N/V/D Swelling in Legs and feet Time Seen by Provider: 01/25/23 17:18 Source: patient Mode of arrival: ambulatory History of Present Illness: 57-year-old male presents emergency room planing of chronic swelling of his lower extremities. He has had problems with kidney function in the past he was recently hospitalized for persistent nausea and vomiting. His creatinine was 4.2 at the time of discharge. He is set up to see nephrology however when he went there evidently he had gone to the nephrology dialysis clinic. And they contacted the armored machine operator in [place] told him there are concerns and advised to go to the ER. He is not having any nausea or vomiting now he had been previously. His blood sugars been chronically elevated his diabetes is poorly controlled. He denies any chest or abdominal pain. Onset (ago): month(s) Severity: moderate Relieving factors: none Exacerbating factors: none Associated symptoms: Deny chest pain, confusion, cough, diaphoresis, decreased appetite, dyspnea, fevers/chills, headache(s), malaise, nausea, rash, palpitations, seizures, short of breath, syncope, vomiting or weakness Treatments prior to arrival: none Review of Systems Const: Denies: fever(s), chills, fatigue, malaise or diaphoresis ENMT: Denies: throat pain, ear or mastoid pain, nasal discharge or nasal congestion Card: Reports: edema; Denies: chest pain, palpitations or syncope Resp: Denies: dyspnea GI: Denies: abdominal pain, nausea or vomiting : Denies: flank pain, dysuria, urinary frequency or urinary urgency Skin/Breast: Denies: rash Neuro: Denies: headache(s) or confusion PFSH ED PFSH: Medical History Acute diastolic heart failure Acute kidney injury superimposed on CKD Aspiration pneumonia Chronic kidney disease 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 Chronic osteomyelitis Chronic osteomyelitis 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 Chronic ulcer of right foot with fat layer exposed CKD (chronic kidney disease) Congestive heart failure COVID Diabetes Diabetic peripheral neuropathy associated with type 2 diabetes mellitus Diabetic ulcer of foot associated with diabetes mellitus due to underlying condition, with fat layer exposed Elevated troponin Hyperkalemia Hyperkalemia Hyperlipidemia Hypoxia Neuropathy NSTEMI (non-ST elevated myocardial infarction) Onychomycosis of nail of digit of hand PVD (peripheral vascular disease) Type 2 diabetes mellitus Type 2 diabetes mellitus with foot ulcer Uncontrolled type 2 diabetes with neuropathy Surgical History H/O circumcision H/O colonoscopy 7 yrs ago Status post debridement of ulcer of heel Family History Brother Cancer Sister Lung disease Mother Heart failure Father Chronic kidney failure Denies family history of Anesthesia complication Bleeding disorder Social History Smoking and tobacco status: former smoker Second hand smoke exposure: No Alcohol intake: never Substance/Drug Use: never Adopted: No Lives independently: Yes Marital status: Single Current occupational status: disabled Physical Exam Const: GENERAL APPEARANCE: cooperative and comfortable ORIENTATION/CONSCIOUSNESS: Yes awake, Yes oriented to person, Yes oriented to place and Yes oriented to time HENMT: COMMON NORMALS: normocephalic, atraumatic and hearing grossly normal bilaterally HEAD & SCALP: normocephalic and atraumatic Resp: COMMON NORMALS: normal respiratory effort, No retractions, No use of accessory muscles and clear to auscultation bilaterally AUSCULTATION: clear to auscultation bilaterally Cardio: COMMON NORMALS: regular rate, regular rhythm and No murmurs present (Cardio) RATE: regular rate RHYTHM: regular rhythm GI: COMMON NORMALS: Soft to palpation and No hepatosplenomegaly present AUSCULTATION: Yes normoactive bowel sounds PALPATION: Yes Soft to palpation, No Tenderness to palpation present (GI), No Guarding due to palpation present (GI) and Yes No hepatosplenomegaly present Neuro: SENSORIUM/ORIENTATION: Yes oriented to person, Yes oriented to place and Yes oriented to time Course Vital Signs: Vital signs: Vital Signs Temperature 96.9 F L 01/25/23 17:19 Pulse Rate 72 01/25/23 18:36 Respiratory Rate 24 H 01/25/23 17:19 Blood Pressure 162/81 01/25/23 18:36 Pulse Oximetry 94 01/25/23 18:36 Oxygen Delivery Me thod Nasal Cannula 01/25/23 18:36 Oxygen Flow Rate 3 01/25/23 18:36 MDM - General Adult Medical Decision Making Care signed out to Dr. Ng at change of shift. See final notes for diagnosis and disposition. Patient presents here with nausea vomiting he does have chronic kidney disease he has no hyperkalemia feels improved here we will prescribe Zofran he is to follow-up with his armored machine operator and return if worsening he understands agrees to plan. Medical Records I reviewed the patient's medical records. Lab Data I reviewed the patient's lab results. 01/25/23 17:59 01/25/23 17:59 Laboratory Results WBC 7.8 10^3/uL (4.0-10.0) 01/25/23 17:59 RBC 3.19 10^6/uL (4.1-5.3) L 01/25/23 17:59 Hgb 8.9 g/dL (11.7-16.6) L 01/25/23 17:59 Hct 29.6 % (42.0-52.0) L 01/25/23 17:59 MCV 92.8 fl (80-94) 01/25/23 17:59 MCH 27.9 pg (28.0-34.0) L 01/25/23 17:59 MCHC 30.1 g/dL (30.0-36.0) 01/25/23 17:59 RDW 17.9 % (12.1-15.1) H 01/25/23 17:59 Plt Count 132 10^3/cmm (130-400) 01/25/23 17:59 MPV 13.0 fL (7.4-10.4) H 01/25/23 17:59 Neut % (Auto) 71.4 % 01/25/23 17:59 Lymph % (Auto) 14.9 % 01/25/23 17:59 Roosevelt % (Auto) 6.9 % 01/25/23 17:59 Eos % (Auto) 4.9 % 01/25/23 17:59 Baso % (Auto) 1.4 % 01/25/23 17:59 Neut # (Auto) 5.54 10^3/uL (1.8-7.7) 01/25/23 17:59 Lymph # (Auto) 1.2 10^3/uL (0.8-4.8) 01/25/23 17:59 Roosevelt # (Auto) 0.5 10^3/uL (0.2-0.9) 01/25/23 17:59 Eos # (Auto) 0.4 10^3/uL (0.0-0.8) 01/25/23 17:59 Baso # (Auto) 0.1 10^3/uL (0.0-0.1) 01/25/23 17:59 Nucleated RBC % (auto) 0 % 01/25/23 17:59 Nucleated RBCs # 0.0 /100WBC 01/25/23 17:59 Sodium 139 mmol/L (136-145) 01/25/23 17:59 Potassium 4.5 mmol/L (3.5-5.1) 01/25/23 17:59 Chloride 106 mmol/L (98-107) 01/25/23 17:59 Carbon Dioxide 16 mmol/L (22-29) L 01/25/23 17:59 Anion Gap 21.5 (5-19) H 01/25/23 17:59 BUN 41 mg/dL (6-20) H 01/25/23 17:59 Creatinine 4.8 mg/dL (0.7-1.2) H 01/25/23 17:59 GFR Calculation 12.7 mL/min (90-130) L 01/25/23 17:59 Glucose 227 mg/dL (65-115) H 01/25/23 17:59 POC Glucose 256 mg/dL (70-110) H 01/25/23 17:21 Calculated Osmolality 305 mOsm/kg (285-295) H 01/25/23 17:59 Calcium 7.7 mg/dL (8.5-10.5) L 01/25/23 17:59 Total Bilirubin 0.3 mg/dL (0.15-1.2) 01/25/23 17:59 AST 15 U/L (0-40) 01/25/23 17:59 ALT 7 U/L (0-41) 01/25/23 17:59 Alkaline Phosphatase 157 U/L (40-130) H 01/25/23 17:59 Total Protein 7.2 g/dL (6.6-8.7) 01/25/23 17:59 Albumin 3.0 g/dL (3.5-5.2) L 01/25/23 17:59 Globulin 4.2 g/dL (1.3-4.6) 01/25/23 17:59 Lipase 20 U/L (13-60) 01/25/23 17:59 Discharge Plan Discharge Patient Disposition: Home Clinical Impression: CKD (chronic kidney disease), Vomiting Condition: Stable Prescriptions: New ondansetron 4 mg tablet,disintegrating 4 mg PO Q6H PRN (Reason: nausea and vomiting) Qty: 14 0RF No Action gabapentin 300 mg capsule 300 mg PO BEDTIME (DME) Dexcom G6 Sensor Device See Rx Instructions .Route Qty: 9 3RF Rx Instructions: As directed (DME) Dexcom G6 Campus Safety Officer Misc See Rx Instructions .Route Qty: 1 0RF Rx Instructions: As directed (DME) Dexcom G6 Transmitter Device See Rx Instructions .Route Qty: 3 3RF Rx Instructions: As directed Dakin's Solution 0.125 % solution 1 applic topical DAILY Qty: 473 0RF (DME) Podus Boot to the Left See Rx Instructions .Route .MEDSUPPLY Qty: 1 0RF Rx Instructions: As directed J P & O- Patient is in Hospital Cardiac Stepdown Unit room 105-1 fluticasone propion-salmeterol [Advair Diskus] 100-50 mcg/dose blister with device 1 inh inhalation BID Qty: 60 0RF omeprazole 40 mg capsule,delayed release(DR/EC) 40 mg PO QAM atorvastatin 40 mg tablet 40 mg PO BEDTIME metoprolol tartrate 100 mg tablet 100 mg PO BID albuterol sulfate 90 mcg/actuation HFA aerosol inhaler 1 puff inhalation Q6H PRN (Reason: shortness of breath or wheezing) pregabalin [Lyrica] 200 mg capsule 200 mg PO TID famotidine 20 mg tablet 20 mg PO BID aspirin 81 mg Tablet,Chewable 81 mg PO QAM Qty: 60 0RF hydralazine 10 mg tablet 10 mg PO BID Qty: 60 0RF pantoprazole 40 mg Tablet,Delayed Release (Dr/Ec) 40 mg PO QAM insulin lispro [Humalog KwikPen Insulin] 100 unit/mL insulin pen See Rx Instructions .ROUTE .COMPLEX Qty: 15 0RF Rx Instructions: Inject, subcut, 3 times daily, after meals, based on sliding scale provided piperacillin-tazobactam 4.5 gram Recon Soln 4.5 g IV Q12H Rx Instructions: on hold for 48 hours as of 01/18/23 per pt isosorbide mononitrate 30 mg tablet extended release 24 hr 30 mg PO QAM clopidogrel [Plavix] 75 mg tablet 75 mg PO QAM docusate sodium 100 mg capsule 100 mg PO BID PRN (Reason: Constipation) furosemide [Lasix] 20 mg tablet 40 mg PO QAM Qty: 60 0RF Levemir FlexTouch U-100 Insuln 100 unit/mL (3 mL) insulin pen 20 unit SUBCUT BEDTIME Qty: 15 0RF Discharge Orders: Discharge ED (Routine); Ordered 01/25/23 Ordered By: Hakeem Ng Referrals: Vidhi Gillette FNP [Primary Care Provider] - 1-3 days Discharge Diet: Advance as tolerated Discharge Activity: Resume usual activity Patient Instructions: Acute Nausea and Vomiting (ED) Coding Level of Care Code ED Network Field Engineer for Chg Fwd Documented by User: Hakeem Ng MD 01/25/23 19:55 HPI - General Adult General: Chief complaint: Nausea/Vomiting/Diarrhea Stated complaint: N/V/D Swelling in Legs and feet Time Seen by Provider: 01/25/23 17:18 [facility] ED PFSH: Medical History Acute diastolic heart failure Acute kidney injury superimposed on CKD Aspiration pneumonia Chronic kidney disease 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 Chronic osteomyelitis Chronic osteomyelitis 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 Chronic ulcer of right foot with fat layer exposed CKD (chronic kidney disease) Congestive heart failure COVID Diabetes Diabetic peripheral neuropathy associated with type 2 diabetes mellitus Diabetic ulcer of foot associated with diabetes mellitus due to underlying condition, with fat layer exposed Elevated troponin Hyperkalemia Hyperkalemia Hyperlipidemia Hypoxia Neuropathy NSTEMI (non-ST elevated myocardial infarction) Onychomycosis of nail of digit of hand PVD (peripheral vascular disease) Type 2 diabetes mellitus Type 2 diabetes mellitus with foot ulcer Uncontrolled type 2 diabetes with neuropathy Surgical History H/O circumcision H/O colonoscopy 7 yrs ago Status post debridement of ulcer of heel Family History Brother Cancer Sister Lung disease Mother Heart failure Father Chronic kidney failure Denies family history of Anesthesia complication Bleeding disorder Social History Smoking and tobacco status: former smoker Second hand smoke exposure: No Alcohol intake: never Substance/Drug Use: never Adopted: No Lives independently: Yes Marital status: Single Current occupational status: disabled Course Vital Signs: Vital signs: Vital Signs Temperature 96.9 F L 01/25/23 17:19 Pulse Rate 72 01/25/23 18:36 Respiratory Rate 24 H 01/25/23 17:19 Blood Pressure 162/81 01/25/23 18:36 Pulse Oximetry 94 01/25/23 18:36 Oxygen Delivery Me thod Nasal Cannula 01/25/23 18:36 Oxygen Flow Rate 3 01/25/23 18:36 MDM - General Adult Medical Decision Making Patient presents here with nausea vomiting he does have chronic kidney disease he has no hyperkalemia feels improved here we will prescribe Zofran he is to follow-up with his armored machine operator and return if worsening he understands agrees to plan. Lab Data 01/25/23 17:59 01/25/23 17:59 Laboratory Results WBC 7.8 10^3/uL (4.0-10.0) 01/25/23 17:59 RBC 3.19 10^6/uL (4.1-5.3) L 01/25/23 17:59 Hgb 8.9 g/dL (11.7-16.6) L 01/25/23 17:59 Hct 29.6 % (42.0-52.0) L 01/25/23 17:59 MCV 92.8 fl (80-94) 01/25/23 17:59 MCH 27.9 pg (28.0-34.0) L 01/25/23 17:59 MCHC 30.1 g/dL (30.0-36.0) 01/25/23 17:59 RDW 17.9 % (12.1-15.1) H 01/25/23 17:59 Plt Count 132 10^3/cmm (130-400) 01/25/23 17:59 MPV 13.0 fL (7.4-10.4) H 01/25/23 17:59 Neut % (Auto) 71.4 % 01/25/23 17:59 Lymph % (Auto) 14.9 % 01/25/23 17:59 Roosevelt % (Auto) 6.9 % 01/25/23 17:59 Eos % (Auto) 4.9 % 01/25/23 17:59 Baso % (Auto) 1.4 % 01/25/23 17:59 Neut # (Auto) 5.54 10^3/uL (1.8-7.7) 01/25/23 17:59 Lymph # (Auto) 1.2 10^3/uL (0.8-4.8) 01/25/23 17:59 Roosevelt # (Auto) 0.5 10^3/uL (0.2-0.9) 01/25/23 17:59 Eos # (Auto) 0.4 10^3/uL (0.0-0.8) 01/25/23 17:59 Baso # (Auto) 0.1 10^3/uL (0.0-0.1) 01/25/23 17:59 Nucleated RBC % (auto) 0 % 01/25/23 17:59 Nucleated RBCs # 0.0 /100WBC 01/25/23 17:59 Sodium 139 mmol/L (136-145) 01/25/23 17:59 Potassium 4.5 mmol/L (3.5-5.1) 01/25/23 17:59 Chloride 106 mmol/L (98-107) 01/25/23 17:59 Carbon Dioxide 16 mmol/L (22-29) L 01/25/23 17:59 Anion Gap 21.5 (5-19) H 01/25/23 17:59 BUN 41 mg/dL (6-20) H 01/25/23 17:59 Creatinine 4.8 mg/dL (0.7-1.2) H 01/25/23 17:59 GFR Calculation 12.7 mL/min (90-130) L 01/25/23 17:59 Glucose 227 mg/dL (65-115) H 01/25/23 17:59 POC Glucose 256 mg/dL (70-110) H 01/25/23 17:21 Calculated Osmolality 305 mOsm/kg (285-295) H 01/25/23 17:59 Calcium 7.7 mg/dL (8.5-10.5) L 01/25/23 17:59 Total Bilirubin 0.3 mg/dL (0.15-1.2) 01/25/23 17:59 AST 15 U/L (0-40) 01/25/23 17:59 ALT 7 U/L (0-41) 01/25/23 17:59 Alkaline Phosphatase 157 U/L (40-130) H 01/25/23 17:59 Total Protein 7.2 g/dL (6.6-8.7) 01/25/23 17:59 Albumin 3.0 g/dL (3.5-5.2) L 01/25/23 17:59 Globulin 4.2 g/dL (1.3-4.6) 01/25/23 17:59 Lipase 20 U/L (13-60) 01/25/23 17:59 Discharge Plan Discharge Patient Disposition: Home Clinical Impression: CKD (chronic kidney disease), Vomiting Condition: Stable Prescriptions: New ondansetron 4 mg tablet,disintegrating 4 mg PO Q6H PRN (Reason: nausea and vomiting) Qty: 14 0RF No Action gabapentin 300 mg capsule 300 mg PO BEDTIME (DME) Dexcom G6 Sensor Device See Rx Instructions .Route Qty: 9 3RF Rx Instructions: As directed (DME) Dexcom G6 Campus Safety Officer Misc See Rx Instructions .Route Qty: 1 0RF Rx Instructions: As directed (DME) Dexcom G6 Transmitter Device See Rx Instructions .Route Qty: 3 3RF Rx Instructions: As directed Dakin's Solution 0.125 % solution 1 applic topical DAILY Qty: 473 0RF (DME) Podus Boot to the Left See Rx Instructions .Route .MEDSUPPLY Qty: 1 0RF Rx Instructions: As directed J P & O- Patient is in Hospital Cardiac Stepdown Unit room 105-1 fluticasone propion-salmeterol [Advair Diskus] 100-50 mcg/dose blister with device 1 inh inhalation BID Qty: 60 0RF omeprazole 40 mg capsule,delayed release(DR/EC) 40 mg PO QAM atorvastatin 40 mg tablet 40 mg PO BEDTIME metoprolol tartrate 100 mg tablet 100 mg PO BID albuterol sulfate 90 mcg/actuation HFA aerosol inhaler 1 puff inhalation Q6H PRN (Reason: shortness of breath or wheezing) pregabalin [Lyrica] 200 mg capsule 200 mg PO TID famotidine 20 mg tablet 20 mg PO BID aspirin 81 mg Tablet,Chewable 81 mg PO QAM Qty: 60 0RF hydralazine 10 mg tablet 10 mg PO BID Qty: 60 0RF pantoprazole 40 mg Tablet,Delayed Release (Dr/Ec) 40 mg PO QAM insulin lispro [Humalog KwikPen Insulin] 100 unit/mL insulin pen See Rx Instructions .ROUTE .COMPLEX Qty: 15 0RF Rx Instructions: Inject, subcut, 3 times daily, after meals, based on sliding scale provided piperacillin-tazobactam 4.5 gram Recon Soln 4.5 g IV Q12H Rx Instructions: on hold for 48 hours as of 01/18/23 per pt isosorbide mononitrate 30 mg tablet extended release 24 hr 30 mg PO QAM clopidogrel [Plavix] 75 mg tablet 75 mg PO QAM docusate sodium 100 mg capsule 100 mg PO BID PRN (Reason: Constipation) furosemide [Lasix] 20 mg tablet 40 mg PO QAM Qty: 60 0RF Levemir FlexTouch U-100 Insuln 100 unit/mL (3 mL) insulin pen 20 unit SUBCUT BEDTIME Qty: 15 0RF Discharge Orders: Discharge ED (Routine); Ordered 01/25/23 Ordered By: Hakeem Ng Referrals: Vidhi Gillette FNP [Primary Care Provider] - 1-3 days Discharge Diet: Advance as tolerated Discharge Activity: Resume usual activity Patient Instructions: Acute Nausea and Vomiting (ED) Coding Level of Care Code ED Network Field Engineer for Blaise Beckett
[2023-01-25 17:35] LABS: Glucose Point of Care 256 mg/dL (70-110)
[2023-01-25 17:47] VITALS: BP 157/86; PULSE 71; O2SAT 95
[2023-01-25 18:15] LABS: Basophils # 0.1 10^3/uL (0.0-0.1); Basophils % 1.4 %; Eosinophils # 0.4 10^3/uL (0.0-0.8); Eosinophils % 4.9 %; Hematocrit 29.6 % (42.0-52.0); Hemoglobin 8.9 g/dL (11.7-16.6); Lymphocytes # 1.2 10^3/uL (0.8-4.8); Lymphocytes % 14.9 %; Mean Corpuscular HGB Conc 30.1 g/dL (30.0-36.0); Mean Corpuscular Hemoglobin 27.9 pg (28.0-34.0); Mean Corpuscular Volume 92.8 fl (80-94); Monocytes # 0.5 10^3/uL (0.2-0.9); Monocytes % 6.9 %; Neutrophils # 5.54 10^3/uL (1.8-7.7); Neutrophils % 71.4 %; Nucleated Red Blood Cells % 0 %; Platelet Count 132 10^3/cmm (130-400); Red Blood Count 3.19 10^6/uL (4.1-5.3); Red Cell Distribution Width 17.9 % (12.1-15.1); White Blood Count 7.8 10^3/uL (4.0-10.0)
[2023-01-25] MEDS: hyDRALAzine 20 mg/mL INJ 1 mL 10 MG IVP (18:33)
[2023-01-25] MEDS: ondansetron 2 mg/ML SDV 2 mL 4 MG IVP (18:34)
[2023-01-25 18:36] VITALS: BP 162/81; PULSE 72; O2SAT 94
[2023-01-25 19:13] LABS: Lipase 20 U/L (13-60)
[2023-01-25 19:14] LABS: Alanine Aminotransferase 7 U/L (0-41); Alkaline Phosphatase 157 U/L (40-130); Anion Gap 21.5 (5-19); Aspartate Amino Transferase 15 U/L (0-40); Blood Urea Nitrogen 41 mg/dL (6-20); Calcium 7.7 mg/dL (8.5-10.5); Carbon Dioxide 16 mmol/L (22-29); Chloride 106 mmol/L (98-107); Globulin 4.2 g/dL (1.3-4.6); Glomerular Filtration Rate 12.7 mL/min (90-130); Glucose 227 mg/dL (65-115); Osmolality Calculated 305 mOsm/kg (285-295); Potassium 4.5 mmol/L (3.5-5.1); Sodium 139 mmol/L (136-145); Total Bilirubin 0.3 mg/dL (0.15-1.2); Total Protein 7.2 g/dL (6.6-8.7)
--- NOTE | 2023-01-29 11:09 | DCPLANNER ---
associate product manager had message to schedule a follow up appointment with his casing tier. associate product manager called patient to see if patient needed help with scheduling a follow up appointment with his casing tier. Patient stated that he has an appointment scheduled for next wee.
== END 2023-01-25 20:30 | disposition home or self-care (01) ==
PROVIDERS: Family Medicine; Emergency Provider Emergency Medicine; PCP Nurse Practitioner Family
DX: I13.0 Hypertensive heart and chronic kidney disease with heart failure and stage 1 through stage 4 chronic kidney disease, or unspecified chronic kidney disease (principal); E11.22 Type 2 diabetes mellitus with diabetic chronic kidney disease; N18.9 Chronic kidney disease, unspecified; I50.30 Unspecified diastolic (congestive) heart failure; E78.5 Hyperlipidemia, unspecified; I25.2 Old myocardial infarction; Z87.891 Personal history of nicotine dependence; R11.11 Vomiting without nausea; Z79.82 Long term (current) use of aspirin; Z79.02 Long term (current) use of antithrombotics/antiplatelets; Z79.4 Long term (current) use of insulin
CPT/HCPCS: 36416; 80053; 82962; 83690; 85025; 96374; 96375; 99284; J0360; J2405

== ENCOUNTER 2023-01-30 09:22 | Outpatient (RCR) | payer MEDICARE, MEDICAID, SELFPAY ==
[2023-01-30 09:30] VITALS: BP 137/82; PULSE 59; RESP 18; TEMP 36.4; O2SAT 94
[2023-01-30 10:03] LABS: Basophils # 0.1 10^3/uL (0.0-0.1); Basophils % 0.8 %; Eosinophils # 0.4 10^3/uL (0.0-0.8); Eosinophils % 5.1 %; Hematocrit 28.1 % (42.0-52.0); Hemoglobin 8.5 g/dL (11.7-16.6); Lymphocytes # 1.4 10^3/uL (0.8-4.8); Lymphocytes % 17.1 %; Mean Corpuscular HGB Conc 30.2 g/dL (30.0-36.0); Mean Corpuscular Hemoglobin 28.1 pg (28.0-34.0); Mean Platelet Volume 14.1 fL (7.4-10.4); Monocytes # 1.1 10^3/uL (0.2-0.9); Monocytes % 13.3 %; Neutrophils # 5.21 10^3/uL (1.8-7.7); Neutrophils % 62.9 %; Nucleated Red Blood Cells % 0 %; Platelet Count 143 10^3/cmm (130-400); Red Blood Count 3.02 10^6/uL (4.1-5.3); Red Cell Distribution Width 18.7 % (12.1-15.1); White Blood Count 8.3 10^3/uL (4.0-10.0)
[2023-01-30 10:30] LABS: Alanine Aminotransferase 7 U/L (0-41); Alkaline Phosphatase 142 U/L (40-130); Aspartate Amino Transferase 13 U/L (0-40); Globulin 4.1 g/dL (1.3-4.6); Glomerular Filtration Rate 9.6 mL/min (90-130); Total Bilirubin 0.3 mg/dL (0.15-1.2); Total Protein 7.1 g/dL (6.6-8.7)
--- NOTE | 2023-01-30 10:38 | PC.NURSE ---
Critical creatinine level of 6.1 called to Iris Austin in Dr. Cedillo's office. Iris to notify Dr. Cedillo. Pt currently at [facility] being seen. Dr. Andujar also notified of increased creatinine level. Pt has been off antibiotic since last Saturday. No new orders at this time.
[2023-02-06 09:30] VITALS: BP 160/84; PULSE 64; RESP 18; TEMP 36.3; O2SAT 99
[2023-02-06 09:45] LABS: Basophils # 0.1 10^3/uL (0.0-0.1); Eosinophils % 11.6 %; Hematocrit 29.9 % (42.0-52.0); Hemoglobin 9.1 g/dL (11.7-16.6); Lymphocytes # 0.9 10^3/uL (0.8-4.8); Lymphocytes % 11.2 %; Mean Corpuscular HGB Conc 30.4 g/dL (30.0-36.0); Mean Corpuscular Hemoglobin 28.1 pg (28.0-34.0); Mean Corpuscular Volume 92.3 fl (80-94); Mean Platelet Volume 12.7 fL (7.4-10.4); Monocytes # 0.7 10^3/uL (0.2-0.9); Monocytes % 8.4 %; Neutrophils # 5.63 10^3/uL (1.8-7.7); Neutrophils % 67.3 %; Nucleated Red Blood Cells % 0 %; Platelet Count 189 10^3/cmm (130-400); Red Blood Count 3.24 10^6/uL (4.1-5.3); Red Cell Distribution Width 18.3 % (12.1-15.1); White Blood Count 8.4 10^3/uL (4.0-10.0)
--- NOTE | 2023-02-06 09:45 | PC.NURSE ---
Pt to GI infusions for removal of PICC line per Dr. Cedillo's orders. Catheter removed with 44 cm noted. Tip intact. Pressure held until hemostasis obtained. No redness, swelling, or pain noted. Pt educated to return to ED or PCP for S&S of infection or chest pain and SOB. Verbalized understanding.
[2023-02-06 10:07] LABS: Alanine Aminotransferase 6 U/L (0-41); Albumin Level 2.9 g/dL (3.5-5.2); Alkaline Phosphatase 156 U/L (40-130); Aspartate Amino Transferase 18 U/L (0-40); Globulin 4.3 g/dL (1.3-4.6); Glomerular Filtration Rate 14.4 mL/min (90-130); Total Bilirubin 0.2 mg/dL (0.15-1.2); Total Protein 7.2 g/dL (6.6-8.7)
== END 2023-02-27 23:59 | disposition home or self-care (01) ==
LOC: GILAB 09:22
PROVIDERS: Student in an Organized Health Care Education/Training Program; PCP Nurse Practitioner Family; Visit Provider Family Medicine
DX: Z98.890 Other specified postprocedural states (principal); L97.423 Non-pressure chronic ulcer of left heel and midfoot with necrosis of muscle; M86.60 Other chronic osteomyelitis, unspecified site; L97.512 Non-pressure chronic ulcer of other part of right foot with fat layer exposed; M86.9 Osteomyelitis, unspecified
CPT/HCPCS: 11042; 11045; 36592; 80053; 80076; 82565; 83735; 84100; 85025; 99283; A6021; A6251; A6252

== ENCOUNTER 2023-01-30 12:30 | Emergency (ER) | payer MEDICARE, MEDICAID, SELFPAY ==
[2023-01-30 12:39] VITALS: BP 127/79; PULSE 62; TEMP 36.3; O2SAT 93; BMI 31.7
--- NOTE | 2023-01-30 13:06 | W.ED.RECABL ---
HPI - Recheck/Abnormal Lab/Rx General: Chief Complaint: Recheck/Abnormal Lab/Rx Stated Complaint: abnormal labs Time Seen by Provider: 01/30/23 12:55 History of Present Illness: Presents to the ER today with complaints of abnormal creatinine levels. Patient is seen in wound care every week they redraw his blood. Patient's creatinine normally runs in the fours today was 6.1. Patient has no other complaints at this time. Patient is already set up to see one of the traveling dispatch associate to come here weekly. His appointment is next Saturday. complaint: other (Elevated creatinine) Description of abnormal result: Creatinine of 6.1 this morning when it normally runs in the fours. 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 Chronic osteomyelitis Chronic osteomyelitis 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 Chronic ulcer of right foot with fat layer exposed CKD (chronic kidney disease) Congestive heart failure COVID Diabetes Diabetic peripheral neuropathy associated with type 2 diabetes mellitus Diabetic ulcer of foot associated with diabetes mellitus due to underlying condition, with fat layer exposed Elevated troponin Hyperkalemia Hyperkalemia Hyperlipidemia Hypoxia Neuropathy NSTEMI (non-ST elevated myocardial infarction) Onychomycosis of nail of digit of hand PVD (peripheral vascular disease) Type 2 diabetes mellitus Type 2 diabetes mellitus with foot ulcer Uncontrolled type 2 diabetes with neuropathy Surgical History H/O circumcision H/O colonoscopy 7 yrs ago Status post debridement of ulcer of heel Family History Brother Cancer Sister Lung disease Mother Heart failure Father Chronic kidney failure Denies family history of Anesthesia complication Bleeding disorder Social History Smoking and tobacco status: former smoker Second hand smoke exposure: No Alcohol intake: never Substance/Drug Use: never Adopted: No Lives independently: Yes Marital status: Single Current occupational status: disabled Physical Exam Const: COMMON NORMALS: no acute distress, average body habitus, patient oriented x3, no limitations, healthy appearing, alert and well nourished HENMT: COMMON NORMALS: normocephalic, atraumatic, hearing grossly normal bilaterally, external ears normal and Normal nasal mucous membranes and turbinates present HEAD & SCALP: normocephalic and atraumatic NOSE: Normal nasal mucous membranes and turbinates present EXTERNAL EAR: Yes external ears normal Eye: COMMON NORMALS: Equal, round and reactive pupils present, EOMs intact bilaterally, conjunctivae normal and no scleral icterus CONJUNCTIVA: Yes conjunctivae normal PUPIL: Yes Equal, round and reactive pupils present Neck/C-Spine: COMMON NORMALS: full ROM, no lymphadenopathy, supple, no meningeal signs, no JVD and Thyroid normal THYROID: Thyroid normal Chest: COMMONS NORMALS: normal inspection of the chest and normal palpation of entire chest wall Resp: COMMON NORMALS: normal respiratory effort, No retractions, No use of accessory muscles and clear to auscultation bilaterally AUSCULTATION: clear to auscultation bilaterally Cardio: COMMON NORMALS: no JVD, regular rate, regular rhythm, S1 normal heart sound present and S2 normal heart sound present RATE: regular rate RHYTHM: regular rhythm HEART SOUNDS: S1 normal heart sound present and S2 normal heart sound present GI: COMMON NORMALS: Normal to inspection, nondistended, normoactive bowel sounds present, Soft to palpation, non-tender, No hepatosplenomegaly present and no masses PALPATION: Yes Soft to palpation and Yes No hepatosplenomegaly present Neuro: COMMON NORMALS: patient oriented x3 SENSORIUM/ORIENTATION: Yes alert MENINGEAL SIGNS: Yes no meningeal signs Course Vital Signs: Vital signs: Vital Signs Temperature 97.4 F L 01/30/23 12:39 Pulse Rate 62 01/30/23 12:39 Blood Pressure 127/79 01/30/23 12:39 Pulse Oximetry 93 01/30/23 12:39 Oxygen Delivery Me thod Room Air 01/30/23 12:39 MDM - Recheck/Abnormal Lab/Rx Medical Decision Making Patient presents here plaints of elevated creatinine. Patient's creatinine normally runs in the mid to high fours and when the wound care crystal his creatinine this morning it was 6.1 and they told him to come here immediately. We rechecked it and it was 5.8. His magnesium was normal his phosphorus was slightly elevated. I talk with Dr. Stoddard of the telemetry dispatch associate and discussed the lab work with her as well as the patient's asymptomatic status. She thinks the patient probably does not need inpatient care and/or immediate dialysis at this moment. Patient already has a appointment scheduled for 1 week. These findings were discussed with the patient and his daughter and agreed to keep this appointment. Patient will be discharged home. Differential Diagnosis Unlikely encounter for medication refill, encounter for wound recheck, encounter for recheck of burn, encounter for removal of sutures or warfarin-induced coagulopathy Medical Records I reviewed the patient's medical records. Lab Data I reviewed the patient's lab results. 01/30/23 13:00 01/30/23 13:00 Laboratory Results WBC 8.4 10^3/uL (4.0-10.0) 01/30/23 13:00 RBC 3.13 10^6/uL (4.1-5.3) L 01/30/23 13:00 Hgb 8.7 g/dL (11.7-16.6) L 01/30/23 13:00 Hct 29.0 % (42.0-52.0) L 01/30/23 13:00 MCV 92.7 fl (80-94) 01/30/23 13:00 MCH 27.8 pg (28.0-34.0) L 01/30/23 13:00 MCHC 30.0 g/dL (30.0-36.0) 01/30/23 13:00 RDW 18.8 % (12.1-15.1) H 01/30/23 13:00 Plt Count 148 10^3/cmm (130-400) 01/30/23 13:00 MPV 14.2 fL (7.4-10.4) H 01/30/23 13:00 Neut % (Auto) 60.8 % 01/30/23 13:00 Lymph % (Auto) 19.3 % 01/30/23 13:00 [place] % (Auto) 12.3 % 01/30/23 13:00 Eos % (Auto) 5.8 % 01/30/23 13:00 Baso % (Auto) 0.8 % 01/30/23 13:00 Neut # (Auto) 5.11 10^3/uL (1.8-7.7) 01/30/23 13:00 Lymph # (Auto) 1.6 10^3/uL (0.8-4.8) 01/30/23 13:00 [place] # (Auto) 1.0 10^3/uL (0.2-0.9) H 01/30/23 13:00 Eos # (Auto) 0.5 10^3/uL (0.0-0.8) 01/30/23 13:00 Baso # (Auto) 0.1 10^3/uL (0.0-0.1) 01/30/23 13:00 Nucleated RBC % (auto) 0 % 01/30/23 13:00 Nucleated RBCs # 0.0 /100WBC 01/30/23 13:00 Sodium 137 mmol/L (136-145) 01/30/23 13:00 Potassium 4.7 mmol/L (3.5-5.1) 01/30/23 13:00 Chloride 105 mmol/L (98-107) 01/30/23 13:00 Carbon Dioxide 18 mmol/L (22-29) L 01/30/23 13:00 Anion Gap 18.7 (5-19) 01/30/23 13:00 BUN 59 mg/dL (6-20) H 01/30/23 13:00 Creatinine 5.8 mg/dL (0.7-1.2) H* 01/30/23 13:00 GFR Calculation 10.2 mL/min (90-130) L 01/30/23 13:00 Glucose 115 mg/dL (65-115) 01/30/23 13:00 Calculated Osmolality 301 mOsm/kg (285-295) H 01/30/23 13:00 Calcium 7.9 mg/dL (8.5-10.5) L 01/30/23 13:00 Phosphorus 7.4 mg/dL (2.5-4.5) H 01/30/23 13:00 Magnesium 2.1 mg/dL (1.7-2.3) 01/30/23 13:00 Total Bilirubin 0.3 mg/dL (0.15-1.2) 01/30/23 13:00 AST 13 U/L (0-40) 01/30/23 13:00 ALT 7 U/L (0-41) 01/30/23 13:00 Alkaline Phosphatase 143 U/L (40-130) H 01/30/23 13:00 Total Protein 7.0 g/dL (6.6-8.7) 01/30/23 13:00 Albumin 3.0 g/dL (3.5-5.2) L 01/30/23 13:00 Globulin 4.0 g/dL (1.3-4.6) 01/30/23 13:00 Discharge Plan Discharge Patient Disposition: Home Clinical Impression: CKD (chronic kidney disease) Condition: Stable Prescriptions: No Action gabapentin 300 mg capsule 300 mg PO BEDTIME (DME) Dexcom G6 Sensor Device See Rx Instructions .Route Qty: 9 3RF Rx Instructions: As directed (DME) Dexcom G6 Barley Steeper Misc See Rx Instructions .Route Qty: 1 0RF Rx Instructions: As directed (DME) Dexcom G6 Transmitter Device See Rx Instructions .Route Qty: 3 3RF Rx Instructions: As directed (DME) Podus Boot to the Left See Rx Instructions .Route .MEDSUPPLY Qty: 1 0RF Rx Instructions: As directed J P & O- Patient is in Hospital Cardiac Stepdown Unit room 105-1 fluticasone propion-salmeterol [Advair Diskus] 100-50 mcg/dose blister with device 1 inh inhalation BID Qty: 60 0RF omeprazole 40 mg capsule,delayed release(DR/EC) 40 mg PO QAM atorvastatin 40 mg tablet 40 mg PO BEDTIME metoprolol tartrate 100 mg tablet 100 mg PO BID albuterol sulfate 90 mcg/actuation HFA aerosol inhaler 1 puff inhalation Q6H PRN (Reason: shortness of breath or wheezing) pregabalin [Lyrica] 200 mg capsule 200 mg PO TID famotidine 20 mg tablet 20 mg PO BID aspirin 81 mg Tablet,Chewable 81 mg PO QAM Qty: 60 0RF hydralazine 10 mg tablet 10 mg PO BID Qty: 60 0RF pantoprazole 40 mg Tablet,Delayed Release (Dr/Ec) 40 mg PO QAM insulin lispro [Humalog KwikPen Insulin] 100 unit/mL insulin pen See Rx Instructions .ROUTE .COMPLEX Qty: 15 0RF Rx Instructions: Inject, subcut, 3 times daily, after meals, based on sliding scale provided benzonatate 200 mg capsule 200 mg PO TID PRN (Reason: Cough) amlodipine 10 mg tablet 10 mg PO DAILY Lasix 20 mg tablet 20 - 40 mg PO DAILY PRN (Reason: Edema) isosorbide mononitrate 30 mg tablet extended release 24 hr 30 mg PO QAM clopidogrel [Plavix] 75 mg tablet 75 mg PO QAM docusate sodium 100 mg capsule 100 mg PO BID PRN (Reason: Constipation) Levemir FlexTouch U-100 Insuln 100 unit/mL (3 mL) insulin pen 20 unit SUBCUT BEDTIME Qty: 15 0RF ondansetron 4 mg tablet,disintegrating 4 mg PO Q6H PRN (Reason: nausea and vomiting) Qty: 14 0RF Discharge Orders: Discharge ED (Routine); Ordered 01/30/23 Ordered By: Jan Kelly Referrals: Vidhi Gillette FNP [Primary Care Provider] - 1 week Patient Instructions: Chronic Kidney Disease (ED) Coding Level of Care Code ED Adaptive Physical Education Specialist for Blaise Beckett
[2023-01-30 13:32] LABS: Basophils # 0.1 10^3/uL (0.0-0.1); Basophils % 0.8 %; Eosinophils # 0.5 10^3/uL (0.0-0.8); Eosinophils % 5.8 %; Hemoglobin 8.7 g/dL (11.7-16.6); Lymphocytes # 1.6 10^3/uL (0.8-4.8); Lymphocytes % 19.3 %; Mean Corpuscular Hemoglobin 27.8 pg (28.0-34.0); Mean Corpuscular Volume 92.7 fl (80-94); Mean Platelet Volume 14.2 fL (7.4-10.4); Monocytes % 12.3 %; Neutrophils # 5.11 10^3/uL (1.8-7.7); Neutrophils % 60.8 %; Nucleated Red Blood Cells % 0 %; Platelet Count 148 10^3/cmm (130-400); Red Blood Count 3.13 10^6/uL (4.1-5.3); Red Cell Distribution Width 18.8 % (12.1-15.1); White Blood Count 8.4 10^3/uL (4.0-10.0)
[2023-01-30 13:43] VITALS: PULSE 66; RESP 17; O2SAT 97
[2023-01-30 13:47] LABS: Alanine Aminotransferase 7 U/L (0-41); Alkaline Phosphatase 143 U/L (40-130); Anion Gap 18.7 (5-19); Aspartate Amino Transferase 13 U/L (0-40); Blood Urea Nitrogen 59 mg/dL (6-20); Calcium 7.9 mg/dL (8.5-10.5); Carbon Dioxide 18 mmol/L (22-29); Chloride 105 mmol/L (98-107); Glomerular Filtration Rate 10.2 mL/min (90-130); Glucose 115 mg/dL (65-115); Magnesium 2.1 mg/dL (1.7-2.3); Osmolality Calculated 301 mOsm/kg (285-295); Phosphorus 7.4 mg/dL (2.5-4.5); Potassium 4.7 mmol/L (3.5-5.1); Sodium 137 mmol/L (136-145); Total Bilirubin 0.3 mg/dL (0.15-1.2)
--- NOTE | 2023-01-30 13:59 | PC.PHAR ---
pt states he takes care of his own medications-pt states he takes lasix prn-rx written 01/19/23 lasix 40mg qam-ozvidal villegas filled 12/06/22 20mg daily-pt states he is still taking lyrica 200mg tid ext shows last filled 07/30/22 90d/s pt states has a build up-pt states was using levemir flextouch u-100 50 units bid pt states it was changed to 20 units hs-ext med history shows piperacillin-tazobactam 2.25gram filled 01/24/23 7d/s pt states took one dose but then states the dr garza pt states not had for a week or so-
[2023-01-30 14:00] VITALS: BP 118/54; PULSE 66; RESP 13; O2SAT 99
[2023-01-30 14:30] VITALS: BP 126/71; PULSE 67; RESP 17; O2SAT 98
== END 2023-01-30 15:04 | disposition home or self-care (01) ==
PROVIDERS: Emergency Provider Emergency Medicine; PCP Nurse Practitioner Family
DX: E11.22 Type 2 diabetes mellitus with diabetic chronic kidney disease (principal); N18.9 Chronic kidney disease, unspecified; I50.9 Heart failure, unspecified; E78.5 Hyperlipidemia, unspecified; I25.2 Old myocardial infarction; Z87.891 Personal history of nicotine dependence
CPT/HCPCS: 80053; 83735; 84100; 85025; 99283

== ENCOUNTER → 2023-02-06 10:21 | Outpatient (BNVA) | payer MEDICARE, MEDICAID, SELFPAY | PROVIDERS: PCP Nurse Practitioner Family; Visit Provider Thoracic Surgery (Cardiothoracic Vascular Surgery) | DX: E11.621 Type 2 diabetes mellitus with foot ulcer (principal); L97.412 Non-pressure chronic ulcer of right heel and midfoot with fat layer exposed; L97.423 Non-pressure chronic ulcer of left heel and midfoot with necrosis of muscle | CPT/HCPCS: 11042; 11045; A6197; A6251; A6252 ==

== ENCOUNTER → 2023-02-20 10:05 | Outpatient (BNVA) | payer MEDICARE, MEDICAID, SELFPAY | PROVIDERS: PCP Nurse Practitioner Family; Visit Provider Thoracic Surgery (Cardiothoracic Vascular Surgery) | DX: I96 Gangrene, not elsewhere classified (principal); E11.621 Type 2 diabetes mellitus with foot ulcer; L89.623 Pressure ulcer of left heel, stage 3; L89.892 Pressure ulcer of other site, stage 2 | CPT/HCPCS: 11042; 11045; 97597; A6252 ==

== ENCOUNTER → 2023-02-27 14:48 | Outpatient (BNVA) | payer MEDICARE, MEDICAID, SELFPAY | PROVIDERS: PCP Nurse Practitioner Family; Visit Provider Thoracic Surgery (Cardiothoracic Vascular Surgery) | DX: I96 Gangrene, not elsewhere classified (principal); E11.621 Type 2 diabetes mellitus with foot ulcer; L89.623 Pressure ulcer of left heel, stage 3; L89.892 Pressure ulcer of other site, stage 2 | CPT/HCPCS: 11042; 11045; A6252 ==

== ENCOUNTER → 2023-03-08 14:27 | Outpatient (BNVA) | payer MEDICARE, MEDICAID, SELFPAY | PROVIDERS: PCP Nurse Practitioner Family; Visit Provider Thoracic Surgery (Cardiothoracic Vascular Surgery) | DX: E11.52 Type 2 diabetes mellitus with diabetic peripheral angiopathy with gangrene (principal); L89.892 Pressure ulcer of other site, stage 2; L89.623 Pressure ulcer of left heel, stage 3 | CPT/HCPCS: 11042; 11045; 97597; A6197 ==

== ENCOUNTER → 2023-03-13 15:44 | Outpatient (BNVA) | payer MEDICARE, MEDICAID, SELFPAY | PROVIDERS: PCP Nurse Practitioner Family; Visit Provider Thoracic Surgery (Cardiothoracic Vascular Surgery) | DX: E11.52 Type 2 diabetes mellitus with diabetic peripheral angiopathy with gangrene (principal); L89.623 Pressure ulcer of left heel, stage 3; L89.892 Pressure ulcer of other site, stage 2 | CPT/HCPCS: 11042; 11045; A6252 ==

== ENCOUNTER → 2023-03-20 13:54 | Outpatient (BNVA) | payer MEDICARE, MEDICAID, SELFPAY | PROVIDERS: PCP Nurse Practitioner Family; Visit Provider Thoracic Surgery (Cardiothoracic Vascular Surgery) | DX: E11.52 Type 2 diabetes mellitus with diabetic peripheral angiopathy with gangrene (principal); L89.622 Pressure ulcer of left heel, stage 2; Z09 Encounter for follow-up examination after completed treatment for conditions other than malignant neoplasm | CPT/HCPCS: 11042; 11045; A6252 ==

== ENCOUNTER → 2023-03-27 13:51 | Outpatient (BNVA) | payer MEDICARE, MEDICAID, SELFPAY | PROVIDERS: PCP Nurse Practitioner Family; Visit Provider Nurse Practitioner Family | DX: E11.52 Type 2 diabetes mellitus with diabetic peripheral angiopathy with gangrene (principal); L89.623 Pressure ulcer of left heel, stage 3 | CPT/HCPCS: 11042; A6197; A6252 ==

== ENCOUNTER → 2023-04-03 13:49 | Outpatient (BNVA) | payer MEDICARE, MEDICAID, SELFPAY | PROVIDERS: PCP Nurse Practitioner Family; Visit Provider Thoracic Surgery (Cardiothoracic Vascular Surgery) | DX: E11.52 Type 2 diabetes mellitus with diabetic peripheral angiopathy with gangrene (principal); L89.623 Pressure ulcer of left heel, stage 3 | CPT/HCPCS: 11042; 11045; A6252 ==

== ENCOUNTER → 2023-04-10 13:03 | Outpatient (BNVA) | payer MEDICARE, MEDICAID, SELFPAY | PROVIDERS: PCP Nurse Practitioner Family; Visit Provider Thoracic Surgery (Cardiothoracic Vascular Surgery) | DX: E11.52 Type 2 diabetes mellitus with diabetic peripheral angiopathy with gangrene (principal); L89.623 Pressure ulcer of left heel, stage 3 | CPT/HCPCS: 97597; 97598; A6021; A6252 ==

== ENCOUNTER → 2023-04-17 10:04 | Outpatient (BNVA) | payer MEDICARE, MEDICAID, SELFPAY | PROVIDERS: PCP Nurse Practitioner Family; Visit Provider Thoracic Surgery (Cardiothoracic Vascular Surgery) | DX: E11.52 Type 2 diabetes mellitus with diabetic peripheral angiopathy with gangrene (principal); L89.623 Pressure ulcer of left heel, stage 3 | CPT/HCPCS: 11042; 11045; A6210; A6252 ==

== ENCOUNTER → 2023-04-24 13:43 | Outpatient (BNVA) | payer MEDICARE, MEDICAID, SELFPAY | PROVIDERS: PCP Nurse Practitioner Family; Visit Provider Thoracic Surgery (Cardiothoracic Vascular Surgery) | DX: E11.52 Type 2 diabetes mellitus with diabetic peripheral angiopathy with gangrene (principal); L89.623 Pressure ulcer of left heel, stage 3 | CPT/HCPCS: 11042; 11045; A6252 ==

== ENCOUNTER → 2023-05-01 13:34 | Outpatient (BNVA) | payer MEDICARE, MEDICAID, SELFPAY | PROVIDERS: PCP Nurse Practitioner Family; Visit Provider Thoracic Surgery (Cardiothoracic Vascular Surgery) | DX: E11.621 Type 2 diabetes mellitus with foot ulcer (principal); L89.623 Pressure ulcer of left heel, stage 3 | CPT/HCPCS: 11042; 11045; A6210; A6252 ==

== ENCOUNTER → 2023-05-08 13:34 | Outpatient (BNVA) | payer MEDICARE, MEDICAID, SELFPAY | PROVIDERS: PCP Nurse Practitioner Family; Visit Provider Thoracic Surgery (Cardiothoracic Vascular Surgery) | DX: E11.621 Type 2 diabetes mellitus with foot ulcer (principal); L89.623 Pressure ulcer of left heel, stage 3 | CPT/HCPCS: 11042; 11045; A6210; A6252 ==

== ENCOUNTER → 2023-05-15 08:48 | Outpatient (BNVA) | payer MEDICARE, MEDICAID, SELFPAY | PROVIDERS: PCP Nurse Practitioner Family; Visit Provider Thoracic Surgery (Cardiothoracic Vascular Surgery) | DX: E11.621 Type 2 diabetes mellitus with foot ulcer (principal); L89.623 Pressure ulcer of left heel, stage 3 | CPT/HCPCS: 11042; A6197; A6252 ==

== ENCOUNTER → 2023-05-22 13:12 | Outpatient (BNVA) | payer MEDICARE, MEDICAID, SELFPAY | PROVIDERS: PCP Nurse Practitioner Family; Visit Provider Thoracic Surgery (Cardiothoracic Vascular Surgery) | DX: E11.52 Type 2 diabetes mellitus with diabetic peripheral angiopathy with gangrene (principal); L89.623 Pressure ulcer of left heel, stage 3 | CPT/HCPCS: 11042; A6197; A6252 ==

== ENCOUNTER → 2023-05-29 14:58 | Outpatient (BNVA) | payer MEDICARE, MEDICAID, SELFPAY | PROVIDERS: PCP Nurse Practitioner Family; Visit Provider Thoracic Surgery (Cardiothoracic Vascular Surgery) | DX: E11.52 Type 2 diabetes mellitus with diabetic peripheral angiopathy with gangrene (principal); L89.623 Pressure ulcer of left heel, stage 3 | CPT/HCPCS: 97597; A6197; A6251 ==

== ENCOUNTER → 2023-06-05 09:53 | Outpatient (BNVA) | payer MEDICARE, MEDICAID, SELFPAY | PROVIDERS: PCP Nurse Practitioner Family; Visit Provider Thoracic Surgery (Cardiothoracic Vascular Surgery) | DX: I96 Gangrene, not elsewhere classified (principal); L89.622 Pressure ulcer of left heel, stage 2 | CPT/HCPCS: 97597; 97598; A6197; A6252 ==

== ENCOUNTER → 2023-06-12 13:06 | Outpatient (BNVA) | payer MEDICARE, MEDICAID, SELFPAY | PROVIDERS: PCP Nurse Practitioner Family; Visit Provider Thoracic Surgery (Cardiothoracic Vascular Surgery) | DX: E11.52 Type 2 diabetes mellitus with diabetic peripheral angiopathy with gangrene (principal); L89.623 Pressure ulcer of left heel, stage 3 | CPT/HCPCS: 11042; 11045; A6197 ==

== ENCOUNTER → 2023-06-19 09:56 | Outpatient (BNVA) | payer MEDICARE, MEDICAID, SELFPAY | PROVIDERS: PCP Nurse Practitioner Family; Visit Provider Nurse Practitioner Family | DX: E11.52 Type 2 diabetes mellitus with diabetic peripheral angiopathy with gangrene (principal); L89.623 Pressure ulcer of left heel, stage 3 | CPT/HCPCS: 11042; 11045; A6197; A6252 ==

== ENCOUNTER → 2023-06-26 13:43 | Outpatient (BNVA) | payer MEDICARE, MEDICAID, SELFPAY | PROVIDERS: PCP Nurse Practitioner Family; Visit Provider Thoracic Surgery (Cardiothoracic Vascular Surgery) | DX: E11.52 Type 2 diabetes mellitus with diabetic peripheral angiopathy with gangrene (principal); L89.623 Pressure ulcer of left heel, stage 3 | CPT/HCPCS: 11042; 11045 ==

== ENCOUNTER → 2023-07-03 10:05 | Outpatient (BNVA) | payer MEDICARE, MEDICAID, SELFPAY | PROVIDERS: PCP Nurse Practitioner Family; Visit Provider Thoracic Surgery (Cardiothoracic Vascular Surgery) | DX: I96 Gangrene, not elsewhere classified (principal); E11.621 Type 2 diabetes mellitus with foot ulcer; L89.621 Pressure ulcer of left heel, stage 1 | CPT/HCPCS: 97597; 97598; A6197; A6252 ==

== ENCOUNTER → 2023-07-10 09:47 | Outpatient (BNVA) | payer MEDICARE, MEDICAID, SELFPAY | PROVIDERS: PCP Nurse Practitioner Family; Visit Provider Thoracic Surgery (Cardiothoracic Vascular Surgery) | DX: E11.52 Type 2 diabetes mellitus with diabetic peripheral angiopathy with gangrene (principal); L89.621 Pressure ulcer of left heel, stage 1 | CPT/HCPCS: 97597; 97598; A6197 ==

== ENCOUNTER → 2023-07-24 09:11 | Outpatient (BNVA) | payer MEDICARE, MEDICAID, SELFPAY | PROVIDERS: PCP Nurse Practitioner Family; Visit Provider Nurse Practitioner Family | DX: E11.52 Type 2 diabetes mellitus with diabetic peripheral angiopathy with gangrene (principal); E11.621 Type 2 diabetes mellitus with foot ulcer; L89.623 Pressure ulcer of left heel, stage 3 | CPT/HCPCS: 11042; 11045; A6197; A6253 ==

== ENCOUNTER → 2023-07-31 08:47 | Outpatient (BNVA) | payer MEDICARE, MEDICAID, SELFPAY | PROVIDERS: PCP Nurse Practitioner Family; Visit Provider Thoracic Surgery (Cardiothoracic Vascular Surgery) | DX: E11.52 Type 2 diabetes mellitus with diabetic peripheral angiopathy with gangrene (principal); E11.621 Type 2 diabetes mellitus with foot ulcer; L89.623 Pressure ulcer of left heel, stage 3 | CPT/HCPCS: 11042; 11045; A6197; A6252 ==

== ENCOUNTER → 2023-08-07 08:22 | Outpatient (BNVA) | payer MEDICARE, MEDICAID, SELFPAY | PROVIDERS: PCP Nurse Practitioner Family; Visit Provider Thoracic Surgery (Cardiothoracic Vascular Surgery) | DX: E11.52 Type 2 diabetes mellitus with diabetic peripheral angiopathy with gangrene (principal); E11.621 Type 2 diabetes mellitus with foot ulcer; L89.623 Pressure ulcer of left heel, stage 3 | CPT/HCPCS: 11042; 11045; A6252 ==

== ENCOUNTER → 2023-08-12 08:36 | Outpatient (BNVA) | payer MEDICARE, MEDICAID, SELFPAY | PROVIDERS: PCP Nurse Practitioner Family; Referring Provider Internal Medicine; Visit Provider Surgery | DX: Z45.2 Encounter for adjustment and management of vascular access device (principal); N17.9 Acute kidney failure, unspecified; N18.4 Chronic kidney disease, stage 4 (severe) | CPT/HCPCS: 36590; 99204 ==

== ENCOUNTER → 2023-08-14 09:01 | Outpatient (BNVA) | payer MEDICARE, MEDICAID, SELFPAY | PROVIDERS: PCP Nurse Practitioner Family; Visit Provider Thoracic Surgery (Cardiothoracic Vascular Surgery) | DX: E11.52 Type 2 diabetes mellitus with diabetic peripheral angiopathy with gangrene (principal); E11.621 Type 2 diabetes mellitus with foot ulcer; L89.623 Pressure ulcer of left heel, stage 3 | CPT/HCPCS: 11042; 11045; A6252 ==

== ENCOUNTER → 2023-08-21 09:10 | Outpatient (BNVA) | payer MEDICARE, MEDICAID, SELFPAY | PROVIDERS: PCP Nurse Practitioner Family; Visit Provider Thoracic Surgery (Cardiothoracic Vascular Surgery) | DX: E11.52 Type 2 diabetes mellitus with diabetic peripheral angiopathy with gangrene (principal); E11.621 Type 2 diabetes mellitus with foot ulcer; L89.623 Pressure ulcer of left heel, stage 3 | CPT/HCPCS: 11042; 11045; A6251 ==

== ENCOUNTER 2023-08-28 14:44 | Inpatient (IN) | payer MEDICARE, MEDICAID, SELFPAY ==
[2023-08-28] VITALS (7 sets, daily range): BP systolic 182–185; BP diastolic 82–95; PULSE 83–90; RESP 16–18; TEMP 36.4; O2SAT 95–98; BMI 37.5; BMI 38.4
--- NOTE | 2023-08-28 15:42 | XRR_ITS ---
PROCEDURE INFORMATION: Exam: XR Left Foot Exam date and time: 08/28/2023 3:49 PM Age: 57 years old Clinical indication: Pain; Foot; Left; Patient HX: Diabetic ulcer TECHNIQUE: Imaging protocol: Radiologic exam of the left foot. Views: 3 or more views. COMPARISON: CR (LOW EXM, ) 12/31/2022 7:56 PM FINDINGS: Bones/joints: Irregular sclerotic changes of the calcaneus or conspicuous than prior exam. Overlying gas containing soft tissue defect. Degenerative changes elsewhere. Calcification of the Achilles tendon. Soft tissues: Diffuse subcutaneous edema. Vascular calcifications. XR/XR foot LT min 3V* [id number] IMPRESSION: Increased irregular sclerotic change of the calcaneus suggesting interval progression of osteomyelitis. MRI can further characterize acuity if this would exchange underwriting consultant.
--- NOTE | 2023-08-28 15:57 | ED_ITS ---
HPI - Wound/Laceration 2 General: Chief Complaint: Wound/Laceration Stated Complaint: swollen left foot Time Seen by Provider: 08/28/23 15:33 Source: patient Mode of arrival: ambulatory History of Present Illness: 57-year-old male presents emergency room he has a severe diabetic ulcer overlying the left calcaneus basically the entire heel pad is gone. He has been seeing wound care clinic for this regularly. He has had a little bit of subjective low-grade fever increased redness and drainage from the foot. Wound care nurse seen the patient and rewrapped his foot this morning. Extremity Location: Left: foot Place: home Associated symptoms: Reports chills and fever(s) (Subjective) Treatments prior to arrival: bandage Review of Systems 2 Const: Reports: fever(s) (Subjective) and chills Card: Denies: chest pain Resp: Denies: dyspnea GI: Denies: abdominal pain : Denies: dysuria, urinary frequency or urinary urgency Musc: Denies: neck pain or back pain Skin/Breast: Denies: rash PFSH ED 2 PFSH: Medical History COVID Type 2 diabetes mellitus with foot ulcer NSTEMI (non-ST elevated myocardial infarction) Chronic osteomyelitis Aspiration pneumonia CKD (chronic kidney disease) PVD (peripheral vascular disease) Chronic ulcer of right foot with fat layer exposed 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 Diabetic peripheral neuropathy associated with type 2 diabetes mellitus Elevated troponin Acute diastolic heart failure Chronic kidney disease Hypoxia Hyperkalemia Congestive heart failure Type 2 diabetes mellitus Diabetic ulcer of foot associated with diabetes mellitus due to underlying condition, with fat layer exposed Hyperkalemia Acute kidney injury superimposed on CKD Chronic osteomyelitis 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 Uncontrolled type 2 diabetes with neuropathy Hyperlipidemia Onychomycosis of nail of digit of hand Neuropathy Diabetes Surgical History H/O circumcision H/O colonoscopy 7 yrs ago Status post debridement of ulcer of heel Family History Brother Cancer Sister Lung disease Mother Heart failure Father Chronic kidney failure Denies family history of Anesthesia complication Bleeding disorder Social History Smoking and tobacco/nicotine status: former use of tobacco/nicotine Second hand smoke exposure: No Alcohol intake: never Substance/Drug Use: never Adopted: No Lives independently: Yes Marital status: Single Current occupational status: disabled Physical Exam 2 Const: GENERAL APPEARANCE: cooperative and comfortable O RIENTATION/CONSCIOUSNESS: Yes awake, Yes oriented to person, Yes oriented to place and Yes oriented to time HENMT: COMMON NORMALS: normocephalic, atraumatic and hearing grossly normal bilaterally HEAD & SCALP: normocephalic and atraumatic Resp: COMMON NORMALS: normal respiratory effort, No retractions, No use of accessory muscles and clear to auscultation bilaterally AUSCULTATION: clear to auscultation bilaterally Cardio: COMMON NORMALS: regular rate, regular rhythm and No murmurs present (Cardio) RATE: regular rate RHYTHM: regular rhythm GI: COMMON NORMALS: Soft to palpation and No hepatosplenomegaly present A USCULTATION: Yes normoactive bowel sounds PALPATION: Yes Soft to palpation, No Tenderness to palpation present (GI), No Guarding due to palpation present (GI) and Yes No hepatosplenomegaly present Extremity: OTHER: Large stage IV foot ulcer with exposed calcaneus bone localized redness erythema no active drainage at this time Neuro: SENSORIUM/ORIENTATION: Yes oriented to person, Yes oriented to place and Yes oriented to time Course 2 Vital Signs: Vital signs: Vital Signs Temperature 97.8 F 08/31/23 12:00 Pulse Rate 69 08/31/23 12:00 Respiratory Rate 17 08/31/23 12:00 Blood Pressure 152/78 08/31/23 12:00 Pulse Oximetry 97 08/31/23 12:00 Oxygen Delivery Me thod Nasal Cannula 08/31/23 03:29 Oxygen Flow Rate 2 08/31/23 03:29 MDM - Wound/Laceration Medical Decision Making Will admit consulted podiatry they recommend below the knee amputation. Discussed with the hospitalist will admit for osteomyelitis and cellulitis further work-up to prepare for below the knee amputation. Dr. Carballo is not on- call but he was gracious enough to answer her phone call. He concurs he seen this patient in wound clinic for some time. Orders written discussed with hospitalist. Medical Records I reviewed the patient's medical records. Lab Data I reviewed the patient's lab results. 08/31/23 04:43 08/30/23 20:30 Radiology Impressions Foot X-Ray 08/28/23 15:42 IMPRESSION: Increased irregular sclerotic change of the calcaneus suggesting interval progression of osteomyelitis. MRI can further characterize acuity if this would guide changer. Laboratory Results WBC 10.70 10^3/uL (3.29-11.43) 08/28/23 16:05 RBC 4.32 10^6/uL (3.85-5.65) 08/28/23 16:05 Hgb 12.50 g/dL (11.27-16.99) 08/28/23 16:05 Hct 39.9 % (37-53) 08/28/23 16:05 MCV 92.4 fl (82-101) 08/28/23 16:05 MCH 28.9 pg (27-33) 08/28/23 16:05 MCHC 31.3 g/dL (30-55) 08/28/23 16:05 RDW 13.5 % (12.1-15.1) 08/28/23 16:05 Plt Count 190 10^3/cmm (157-399) 08/28/23 16:05 MPV 12.7 fL (7.4-10.4) H 08/28/23 16:05 Neut % (Auto) 78.8 % 08/28/23 16:05 Lymph % (Auto) 8.1 % 08/28/23 16:05 [place] % (Auto) 8.4 % 08/28/23 16:05 Eos % (Auto) 3.4 % 08/28/23 16:05 Baso % (Auto) 0.6 % 08/28/23 16:05 Neut # (Auto) 8.44 10^3/uL (1.8-7.7) H 08/28/23 16:05 Lymph # (Auto) 0.9 10^3/uL (0.8-4.8) 08/28/23 16:05 [place] # (Auto) 0.9 10^3/uL (0.2-0.9) 08/28/23 16:05 Eos # (Auto) 0.4 10^3/uL (0.0-0.8) 08/28/23 16:05 Baso # (Auto) 0.1 10^3/uL (0.0-0.1) 08/28/23 16:05 Nucleated RBC % (auto) 0 % 08/28/23 16:05 Nucleated RBCs # 0.0 /100WBC 08/28/23 16:05 Sodium 132 mmol/L (136-145) L 08/28/23 16:05 Potassium 5.7 mmol/L (3.5-5.1) H 08/28/23 16:05 Chloride 100 mmol/L (98-107) 08/28/23 16:05 Carbon Dioxide 17 mmol/L (22-29) L 08/28/23 16:05 Anion Gap 20.7 (5-19) H 08/28/23 16:05 BUN 55 mg/dL (6-20) H 08/28/23 16:05 Creatinine 6.0 mg/dL (0.7-1.2) H* 08/28/23 16:05 GFR Calculation 9.8 mL/min (90-130) L 08/28/23 16:05 Glucose 221 mg/dL (65-115) H 08/28/23 16:05 Calculated Osmolality 296 mOsm/kg (285-295) H 08/28/23 16:05 Calcium 8.9 mg/dL (8.5-10.5) 08/28/23 16:05 Total Bilirubin 0.4 mg/dL (0.15-1.2) 08/28/23 16:05 AST 24 U/L (0-40) 08/28/23 16:05 ALT 12 U/L (0-41) 08/28/23 16:05 Alkaline Phosphatase 250 U/L (40-130) H 08/28/23 16:05 C-Reactive Protein 137.6 mg/L (0.0-4.9) H 08/28/23 16:05 Total Protein 7.7 g/dL (6.6-8.7) 08/28/23 16:05 Albumin 3.2 g/dL (3.5-5.2) L 08/28/23 16:05 Globulin 4.5 g/dL (1.3-4.6) 08/28/23 16:05 All radiology interpretation(s) finalized by discharge Discharge Plan Discharge Patient Disposition: Admitted As Inpatient Admit Provider: Kelsie Cedillo Clinical Impression: Cellulitis of left foot, Type 2 diabetes mellitus, CKD (chronic kidney disease), Acute renal failure superimposed on stage 4 chronic kidney disease, Anemia, Acute osteomyelitis of left calcaneus Condition: Stable Coding Level of Care Code ED Audit Senior Associate for Blaise Beckett
[2023-08-28 16:20] LABS: Basophils # 0.1 10^3/uL (0.0-0.1); Basophils % 0.6 %; Eosinophils # 0.4 10^3/uL (0.0-0.8); Eosinophils % 3.4 %; Hematocrit 39.9 % (37-53); Lymphocytes # 0.9 10^3/uL (0.8-4.8); Lymphocytes % 8.1 %; Mean Corpuscular HGB Conc 31.3 g/dL (30-55); Mean Corpuscular Hemoglobin 28.9 pg (27-33); Mean Corpuscular Volume 92.4 fl (82-101); Mean Platelet Volume 12.7 fL (7.4-10.4); Monocytes # 0.9 10^3/uL (0.2-0.9); Monocytes % 8.4 %; Neutrophils # 8.44 10^3/uL (1.8-7.7); Neutrophils % 78.8 %; Nucleated Red Blood Cells % 0 %; Platelet Count 190 10^3/cmm (157-399); Red Blood Count 4.32 10^6/uL (3.85-5.65); Red Cell Distribution Width 13.5 % (12.1-15.1)
[2023-08-28 16:40] LABS: Alanine Aminotransferase 12 U/L (0-41); Albumin Level 3.2 g/dL (3.5-5.2); Alkaline Phosphatase 250 U/L (40-130); Anion Gap 20.7 (5-19); Aspartate Amino Transferase 24 U/L (0-40); Blood Urea Nitrogen 55 mg/dL (6-20); C Reactive Protein 137.6 mg/L (0.0-4.9); Calcium 8.9 mg/dL (8.5-10.5); Carbon Dioxide 17 mmol/L (22-29); Chloride 100 mmol/L (98-107); Globulin 4.5 g/dL (1.3-4.6); Glomerular Filtration Rate 9.8 mL/min (90-130); Glucose 221 mg/dL (65-115); Osmolality Calculated 296 mOsm/kg (285-295); Potassium 5.7 mmol/L (3.5-5.1); Sodium 132 mmol/L (136-145); Total Bilirubin 0.4 mg/dL (0.15-1.2); Total Protein 7.7 g/dL (6.6-8.7)
[2023-08-28] MEDS: calcium chloride 10% Syr 10 mL 1 GM IVP (17:32)
[2023-08-28] MEDS: insulin regular-human 100 units/1 mL 10 UNIT IVP (17:34)
--- NOTE | 2023-08-28 19:16 | PM.HP ---
Providers/Chief Complaint Admitting Physician: Kelsie Cedillo MD Primary Care Provider: SERAFIN Reza Chief Complaint: swollen left foot History of Present Illness Tim Robison is a 57 year old male with multiple comorbidities previously known to me from outpatient encounters in the infectious disease clinic. He has known chronic left foot osteomyelitis involving the calcaneum and multiple metatarsals in the past, nonhealing ulcer over the left heel dating back several years,s/p multiple courses of iv antibiotics in the past including long term care pharmacist courses for osteomyelitis. His prior cx have revealed Pseudomonas aeruginosa, stenotrophomonas maltophilia (likely colonizer) and MSSA. Patient currently in a wheelchair, however still continues to ambulate. it has been Discussed extensively with the patient that given the chronicity of his wound, the fact that it still remains open after several years and continues to progress in spite of multiple treatment with IV and oral antibiotics, it is highly likely that attempted foot salvage may not be successful, however he has consitently declined amputation until the very end . He is followed closely by the wound care clinic. More recently he was noted to have a significant decline in his wound over the past 7 days. He had increased discharge, increased malodor, wound bed appeared to be dark brown with loose subcutaneous tissue. He also had signs of surrounding cellulitis and today decided to come into the emergency room. He denies any fever chills nausea vomiting or diarrhea. Review of Systems General: Reports: 10 or more systems reviewed and unremarkable except in HPI and below Const: Denies: fever(s), chills or body aches Eyes: Denies: change in vision, blurry vision or photophobia ENMT: Reports: hoarseness; Denies: throat pain, enlarged tonsils, odynophagia or nasal congestion Card: Denies: chest pain, palpitations, irregular heart rhythm, edema, swelling of feet/ankles, lightheadedness, pre-syncope, dyspnea on exertion or orthopnea Resp: Denies: dyspnea, productive cough, non-productive cough, wheezing, stridor, pain on inspiration, change in phlegm color, hemoptysis or chest congestion GI: Denies: abdominal pain, nausea, vomiting, hematemesis, coffee ground emesis, dysphagia, heartburn, diarrhea, constipation, GI cramping, change in stool character, hematochezia or melena : Denies: flank pain, dysuria, urinary frequency, urinary urgency, urinary hesitancy or hematuria Musc: Denies: neck pain, back pain, extremity pain, joint swelling, joint warmth or deformity Neuro: Denies: headache(s), numbness in extremities, weakness in extremities, sensory changes, difficulty walking, frequent falls, dizziness, vertigo, behavioral changes, Slurred speech present or seizure-like activity Psych: Denies: anxiety, depression, suicidal ideation or homicidal ideation Endo: Denies: polyuria, polydipsia, tired all the time, cold intolerance or hot flashes Jarrod/Lymph: Denies: easy bruising or easy bleeding Medications/Allergies Home Medications Medication Instructions Recorded Confirmed Last Taken Type gabapentin 300 mg capsule 300 mg PO BEDTIME 10/11/20 08/29/23 08/28/23 History fluticasone 100 mcg-salmeterol 50 1 inh inhalation BID #60 ea 11/02/21 08/29/23 08/28/23 Rx mcg/dose blistr powdr for inhalation (Advair Diskus) blood-glucose meter,continuous #1 ea 04/23/22 08/29/23 01/30/23 Rx (Dexcom G6 [employer]) blood-glucose sensor (Dexcom G6 #9 ea 04/23/22 08/29/23 01/30/23 Rx Sensor device) blood-glucose transmitter (Dexcom #3 ea 04/23/22 08/29/23 01/30/23 Rx G6 Transmitter device) albuterol sulfate 90 mcg/actuation 1 puff inhalation Q6H PRN 11/29/22 08/29/23 01/30/23 History aerosol inhaler shortness of breath or wheezing atorvastatin 40 mg tablet 40 mg PO BEDTIME 11/29/22 08/29/23 08/28/23 History famotidine 20 mg tablet 20 mg PO BID 11/29/22 08/29/23 08/28/23 History metoprolol tartrate 100 mg tablet 100 mg PO BID 11/29/22 08/29/23 08/28/23 History pregabalin 200 mg capsule (Lyrica) 200 mg PO TID 11/29/22 08/29/23 08/28/23 History Podus Boot to the Left #1 ea 12/03/22 08/29/23 01/30/23 Rx aspirin 81 mg chewable tablet 81 mg PO QAM #60 tabs 12/06/22 08/29/23 08/28/23 Rx hydralazine 10 mg tablet 10 mg PO BID #60 tabs 12/06/22 08/29/23 08/28/23 Rx insulin lispro 100 unit/mL See Rx Instructions .Route 01/07/23 08/29/23 08/28/23 Rx subcutaneous pen (Humalog KwikPen .COMPLEX #15 mL (U-100) Insulin) clopidogrel 75 mg tablet (Plavix) 75 mg PO QAM 01/18/23 08/29/23 08/28/23 History docusate sodium 100 mg capsule 100 mg PO BID PRN Constipation 01/18/23 08/29/23 01/30/23 History isosorbide mononitrate 30 mg 30 mg PO QAM 01/18/23 08/29/23 08/28/23 History tablet,extended release 24 hr amlodipine 10 mg tablet 10 mg PO DAILY 01/30/23 08/29/23 08/28/23 History furosemide 20 mg tablet (Lasix) 20 - 40 mg PO DAILY PRN Edema 01/30/23 08/29/23 Unknown History ergocalciferol (vitamin D2) 1,250 See Rx Instructions .Route .COMPLEX 08/29/23 08/29/23 Unknown History mcg (50,000 unit) capsule (Vitamin D2) insulin detemir U-100 100 unit/mL 20 unit SUBCUT BEDTIME 08/29/23 08/29/23 08/28/23 History (3 mL) subcutaneous pen (Levemir FlexPen) omeprazole 40 mg capsule,delayed 40 mg PO DAILY 08/29/23 08/29/23 08/28/23 History release vit B,C-folic ac 800 mcg-zinc 12.5 1 tab PO DAILY 08/29/23 08/29/23 Unknown History mg-selen-D3 2,000 unit-vit E tablet (RenaPlex-D) Allergies Allergy/AdvReac Type Severity Reaction Status Date / Time Iodinated Contrast Media Allergy ALGY-Hives Verified 08/12/23 08:46 PFSH Acute PFSH: Medical History COVID Type 2 diabetes mellitus with foot ulcer NSTEMI (non-ST elevated myocardial infarction) Chronic osteomyelitis Aspiration pneumonia CKD (chronic kidney disease) PVD (peripheral vascular disease) Chronic ulcer of right foot with fat layer exposed 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 Diabetic peripheral neuropathy associated with type 2 diabetes mellitus Elevated troponin Acute diastolic heart failure Chronic kidney disease Hypoxia Hyperkalemia Congestive heart failure Type 2 diabetes mellitus Diabetic ulcer of foot associated with diabetes mellitus due to underlying condition, with fat layer exposed Hyperkalemia Acute kidney injury superimposed on CKD Chronic osteomyelitis 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 Uncontrolled type 2 diabetes with neuropathy Hyperlipidemia Onychomycosis of nail of digit of hand Neuropathy Diabetes Surgical History H/O circumcision H/O colonoscopy 7 yrs ago Status post debridement of ulcer of heel Family History Brother Cancer Sister Lung disease Mother Heart failure Father Chronic kidney failure Denies family history of Anesthesia complication Bleeding disorder Social History Smoking and tobacco/nicotine status: former use of tobacco/nicotine Second hand smoke exposure: No Alcohol intake: never Substance/Drug Use: never Adopted: No Lives independently: Yes Marital status: Single Current occupational status: disabled Vitals/I&O/Wt Last Vital Signs Temp 97.5 F L 08/28/23 14:52 Pulse 85 08/28/23 19:11 Resp 18 08/28/23 18:46 BP 182/82 08/28/23 19:11 Pulse Ox 96 08/28/23 19:11 O2 Del Method Room Air 08/28/23 18:46 Weight last 48 hrs Weight 115.212 kg Physical Exam Narrative: General: No acute distress, AO x3 HEENT: PERRLA, pupils bilaterally equal and reactive, pallors not present Chest: Normal vesicular breath sounds, no added sounds, equal good air entry bilaterally CVS: S1-S2 regular, no murmurs, no tachycardia, no gallops, no rubs Abdomen: Soft, nontender, no organomegaly, bowel sounds present Neuro: No focal deficits, no facial deformity, AO x3, power 5/5 in all limbs Data 08/29/23 04:26 08/28/23 22:10 Micro: Microbiology 08/28/23 16:09 Blood Culture - Preliminary Blood SPECIMEN COLLECTED 08/28/23 16:05 Blood Culture - Preliminary Blood SPECIMEN COLLECTED A&P Assessment and plan (1) Cellulitis of left foot: (2) Osteomyelitis of left foot: Qualifiers: Osteomyelitis type: chronic multifocal Qualified Code(s): M86.372 - Chronic multifocal osteomyelitis, left ankle and foot (3) CKD (chronic kidney disease): Qualifiers: Chronic kidney disease stage: stage 5, not on chronic dialysis Qualified Code(s): N18.5 - Chronic kidney disease, stage 5 Plan 57-year-old male with known chronic osteomyelitis and nonhealing wound over the left foot dating back several years, currently presenting with worsening of the wound and surrounding cellulitis, more acutely worsened over the past 2 weeks. Patient has been started empirically on treatment with piperacillin/tazobactam and vancomycin for treatment of cellulitis. Superficial wound cultures taken, currently awaited. Podiatry consulted, recommended BKA. Similar recommendations have been made multiple times in the past, however patient has not been willing to proceed with any amputation surgery previously. Today he states that he will consider it when there is no other option , to which he means that unless it is life-threatening he is not willing to undergo BKA just yet. He would like to think about this some more; Holding Plavix in case patient decides to proceed with BKA. Chart reviewed, no stents in the last 1 year. Discussed again with him extensively that long-term antibiotics are highly unlikely to be of any significant benefit to him. We will aim for a short-term course to treat his current cellulitis and then consideration for BKA and continued wound care management is recommended. Consult nephrology to maintain peritoneal dialysis as patient performs at home Attestations Medical Necessity Statement*: Greater than 2 midnight admission is anticipated for IV antibiotics, awaiting wound cultures, continue peritoneal dialysis while in the hospital. Coding Level of Care Code Acute Code for [facility] Diagnoses Cellulitis of left foot L03.116 Chronic multifocal osteomyelitis of left foot M86.372 Osteomyelitis type: chronic multifocal CKD (chronic kidney disease) N18.5 Chronic kidney disease stage: stage 5, not on chronic dialysis
[2023-08-28] MEDS: atorvastatin 40 mg Tablet PO (21:39)
[2023-08-28] MEDS: vancomycin 1,250 MG/250 ML PIGGYBACK 200 MG IV (21:39)
[2023-08-28] MEDS: pregabalin 100 mg Capsule 200 MG PO (21:39)
[2023-08-28] MEDS: piperacillin-tazobactam 3.375 GM in sodium chloride 0.9% (plus) 50 ML IV (21:39)
[2023-08-28] MEDS: heparin 5,000 unit/mL INJ 1 mL 5000 UNIT SUBCUT (21:39)
[2023-08-28] MEDS: gabapentin 300 mg Capsule PO (21:45)
[2023-08-28 22:32] LABS: Alanine Aminotransferase 11 U/L (0-41); Albumin Level 2.5 g/dL (3.5-5.2); Alkaline Phosphatase 199 U/L (40-130); Anion Gap 15.8 (5-19); Aspartate Amino Transferase 18 U/L (0-40); Blood Urea Nitrogen 54 mg/dL (6-20); Calcium 8.5 mg/dL (8.5-10.5); Carbon Dioxide 18 mmol/L (22-29); Chloride 105 mmol/L (98-107); Globulin 3.7 g/dL (1.3-4.6); Glomerular Filtration Rate 9.6 mL/min (90-130); Glucose 234 mg/dL (65-115); Osmolality Calculated 298 mOsm/kg (285-295); Potassium 5.8 mmol/L (3.5-5.1); Sodium 133 mmol/L (136-145); Total Bilirubin 0.3 mg/dL (0.15-1.2); Total Protein 6.2 g/dL (6.6-8.7)
[2023-08-29] VITALS (7 sets, daily range): BP systolic 132–162; BP diastolic 75–88; PULSE 64–83; RESP 16–18; TEMP 36.4–36.8; O2SAT 91–96
[2023-08-29 05:11] LABS: Basophils # 0.1 10^3/uL (0.0-0.1); Eosinophils # 0.5 10^3/uL (0.0-0.8); Eosinophils % 6.6 %; Lymphocytes % 13.9 %; Mean Corpuscular HGB Conc 31.1 g/dL (30-55); Mean Corpuscular Hemoglobin 29.1 pg (27-33); Mean Corpuscular Volume 93.6 fl (82-101); Mean Platelet Volume 12.8 fL (7.4-10.4); Monocytes # 0.7 10^3/uL (0.2-0.9); Monocytes % 10.2 %; Neutrophils # 4.93 10^3/uL (1.8-7.7); Neutrophils % 67.9 %; Nucleated Red Blood Cells % 0 %; Platelet Count 183 10^3/cmm (157-399); Red Blood Count 4.06 10^6/uL (3.85-5.65); Red Cell Distribution Width 13.5 % (12.1-15.1); White Blood Count 7.26 10^3/uL (3.29-11.43)
[2023-08-29] MEDS: aspirin 81 mg EC Tablet PO (05:46)
[2023-08-29] MEDS: piperacillin-tazobactam 3.375 GM in sodium chloride 0.9% (plus) 50 ML IV ×3 (05:46→20:39)
[2023-08-29] MEDS: isosorbide mononitrate ER 30 mg Tablet PO (05:47)
--- NOTE | 2023-08-29 06:26 | P.CONIM_ITS ---
Providers/Reason For Consult 2 Consulting Physician/Specialty*: Neymar Allen D.P.M. Reason for Consult*: Diabetic foot infection, left. Attending Physician: Kelsie Cedillo MD Primary Care Provider: SERAFIN Reza History of Present Illness History of Present Illness Tim Robison is a 57 year old diabetic male (A1c 8.7 4-3-23) presents to the emergency department with complaints of worsening symptoms of his left heel wound. Increased redness, drainage, foul odor and bone exposed. He has had a longstanding wound at the left heel that spans back at least 5 years, per his report it has been present 8 years in duration. X-rays on file September 2017 shows a wound extending to the left posterior calcaneus. Patient has had a longstanding relationship with wound care. Patient has been actively managed at the wound care clinic. Patient denies any subjective nausea, vomiting, fever, chills, shortness of breath or chest pain. Review of Systems 2 General: Reports: 10 or more systems reviewed and unremarkable except in HPI and below Const: Denies: fever(s) or chills Eyes: Denies: change in vision Card: Denies: chest pain or palpitations Resp: Denies: dyspnea or productive cough GI: Denies: abdominal pain, nausea or vomiting : Denies: flank pain Musc: Reports: extremity swelling, joint stiffness and deformity Skin/Breast: Reports: erythema, sores, changes in skin color, dry skin, nail changes and change in hair Neuro: Reports: numbness in extremities, sensory changes and difficulty walking Psych: Denies: suicidal ideation Endo: Denies: change in body appearance Jarrod/Lymph: Denies: tender lymph nodes Medications/Allergies Home Medications Medication Instructions Recorded Confirmed Last Taken Type gabapentin 300 mg capsule 300 mg PO BEDTIME 10/11/20 07/30/23 01/30/23 History fluticasone 100 mcg-salmeterol 50 1 inh inhalation BID #60 ea 11/02/21 07/30/23 01/30/23 Rx mcg/dose blistr powdr for inhalation (Advair Diskus) blood-glucose meter,continuous #1 ea 04/23/22 07/30/23 01/30/23 Rx (Dexcom G6 [employer]) blood-glucose sensor (Dexcom G6 #9 ea 04/23/22 07/30/23 01/30/23 Rx Sensor device) blood-glucose transmitter (Dexcom #3 ea 04/23/22 07/30/23 01/30/23 Rx G6 Transmitter device) albuterol sulfate 90 mcg/actuation 1 puff inhalation Q6H PRN 11/29/22 07/30/23 01/30/23 History aerosol inhaler shortness of breath or wheezing atorvastatin 40 mg tablet 40 mg PO BEDTIME 11/29/22 07/30/23 01/30/23 History famotidine 20 mg tablet 20 mg PO BID 11/29/22 07/30/23 01/30/23 History metoprolol tartrate 100 mg tablet 100 mg PO BID 11/29/22 07/30/23 01/30/23 History pregabalin 200 mg capsule (Lyrica) 200 mg PO TID 11/29/22 07/30/23 01/30/23 History Podus Boot to the Left #1 ea 12/03/22 07/30/23 01/30/23 Rx aspirin 81 mg chewable tablet 81 mg PO QAM #60 tabs 12/06/22 07/30/23 01/30/23 Rx hydralazine 10 mg tablet 10 mg PO BID #60 tabs 12/06/22 07/30/23 01/30/23 Rx pantoprazole 40 mg tablet,delayed 40 mg PO QAM 12/31/22 07/30/23 01/30/23 History release insulin lispro 100 unit/mL See Rx Instructions .Route 01/07/23 07/30/23 01/30/23 Rx subcutaneous pen (Humalog KwmichellPen .COMPLEX #15 mL (U-100) Insulin) clopidogrel 75 mg tablet (Plavix) 75 mg PO QAM 01/18/23 07/30/23 01/30/23 History docusate sodium 100 mg capsule 100 mg PO BID PRN Constipation 01/18/23 07/30/23 01/30/23 History isosorbide mononitrate 30 mg 30 mg PO QAM 01/18/23 07/30/23 01/30/23 History tablet,extended release 24 hr insulin detemir U-100 100 unit/mL 20 unit (0.2 mL) SUBCUT BEDTIME 01/19/23 07/30/23 01/30/23 Rx (3 mL) subcutaneous pen (Levemir #15 mL FlexTouch U-100 Insulin) ondansetron 4 mg disintegrating 4 mg PO Q6H PRN nausea and 01/25/23 07/30/23 01/30/23 Rx tablet vomiting #14 tabs amlodipine 10 mg tablet 10 mg PO DAILY 01/30/23 07/30/23 01/29/23 History benzonatate 200 mg capsule 200 mg PO TID PRN Cough 01/30/23 07/30/23 Unknown History furosemide 20 mg tablet (Lasix) 20 - 40 mg PO DAILY PRN Edema 01/30/23 07/30/23 Unknown History Allergies Allergy/AdvReac Type Severity Reaction Status Date / Time Iodinated Contrast Media Allergy ALGY-Hives Verified 08/12/23 08:46 Current Medications Generic Name Dose Route Start Last Admin Trade Name Freq PRN Reason Stop Dose Admin Aspirin 81 mg 08/29/23 06:00 08/29/23 05:46 Aspirin 81 Mg Ec Tablet PO 81 mg QAM KELSEY Administration Atorvastatin Calcium 40 mg 08/28/23 21:00 08/28/23 21:39 Atorvastatin 40 Mg Tablet PO 40 mg BEDTIME KELSEY Administration Gabapentin 300 mg 08/28/23 21:00 08/28/23 21:45 Gabapentin 300 Mg Capsule PO 300 mg BEDTIME KELSEY Administration Heparin Sodium (Porcine) 5,000 unit 08/28/23 20:00 08/28/23 21:39 Heparin 5,000 Unit/Ml Inj 1 Ml SUBCUT 5,000 unit Q12H KELSEY Administration Piperacillin Sod/Tazobactam 50 mls @ 12.5 mls/hr 08/28/23 20:00 08/29/23 05:46 Sod 3.375 gm/ Sodium Chloride IV 12.5 mls/hr Q8H KELSEY Administration Protocol As Directed Vancomycin/PEG/NADA/Lysine/Water 1,250 mg in 250 mls @ 200 mls/hr 08/28/23 21:30 08/28/23 23:35 Vancocin IV Infused Q48H KELSEY Infusion Isosorbide Mononitrate 30 mg 08/29/23 06:00 08/29/23 05:47 Isosorbide Mononitrate Er 30 Mg Tablet PO 30 mg QAM KELSEY Administration Pregabalin 200 mg 08/28/23 21:00 08/28/23 21:39 Pregabalin 100 Mg Capsule PO 200 mg TID KELSEY Administration PFSH Acute 2 PFSH: Medical History COVID Type 2 diabetes mellitus with foot ulcer NSTEMI (non-ST elevated myocardial infarction) Chronic osteomyelitis Aspiration pneumonia CKD (chronic kidney disease) PVD (peripheral vascular disease) Chronic ulcer of right foot with fat layer exposed 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 Diabetic peripheral neuropathy associated with type 2 diabetes mellitus Elevated troponin Acute diastolic heart failure Chronic kidney disease Hypoxia Hyperkalemia Congestive heart failure Type 2 diabetes mellitus Diabetic ulcer of foot associated with diabetes mellitus due to underlying condition, with fat layer exposed Hyperkalemia Acute kidney injury superimposed on CKD Chronic osteomyelitis 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 Uncontrolled type 2 diabetes with neuropathy Hyperlipidemia Onychomycosis of nail of digit of hand Neuropathy Diabetes Surgical History H/O circumcision H/O colonoscopy 7 yrs ago Status post debridement of ulcer of heel Family History Brother Cancer Sister Lung disease Mother Heart failure Father Chronic kidney failure Denies family history of Anesthesia complication Bleeding disorder Social History Smoking and tobacco/nicotine status: former use of tobacco/nicotine Second hand smoke exposure: No Alcohol intake: never Substance/Drug Use: never Adopted: No Lives independently: Yes Marital status: Single Current occupational status: disabled Vitals/I&O/Wt Last Vital Signs Temp 97.6 F 08/29/23 04:00 Pulse 73 08/29/23 04:00 Resp 18 08/29/23 04:00 BP 162/80 08/29/23 04:00 Pulse Ox 95 08/29/23 04:00 O2 Del Method Room Air 08/29/23 04:00 08/28/23 08/28/23 08/29/23 14:59 22:59 06:59 Intake Total 300 / 300 Output Total 400 / 400 800 / 1200 Balance -400 / -400 -500 / -900 Weight last 48 hrs Weight 260 lb 2 oz Weight 260 lb 4.8 oz Weight 254 lb Physical Exam 2 Narrative: GENERAL: Patient is alert and oriented ?3 and in no acute distress. The following is a focused bilateral lower extremity exam. Patient is wearing bilateral Charcot restraint orthotic walker. VASCULAR: Dorsalis pedis and posterior tibial arteries palpable. Capillary refill time less than 3 seconds to the distal hallux bilaterally. Calf is supple and nontender proximally and distally. Decreased pedal hair growth, pitting edema to the lower extremities. NEUROLOGICAL: Protective sensation intact 0/10 sites, tested with [place] Esdras monofilament to bilateral feet. DERMATOLOGICAL: Full-thickness wound with exposed calcaneus left posterior heel measures 7 cm x 8 cm x 2 cm, calcaneal tuberosity is exposed and able to be directly probed, demonstrates poor density, has colby and black coloration with purulent drainage and foul malodor. MUSCULOSKELETAL: No soft tissue crepitus upon palpation at the left lower extremity. No pain to palpation or with evaluation of wound secondary to neuropathy. Data 08/29/23 04:26 08/28/23 22:10 Micro: Microbiology 08/28/23 16:09 Blood Culture - Preliminary Blood SPECIMEN COLLECTED 08/28/23 16:05 Blood Culture - Preliminary Blood SPECIMEN COLLECTED A&P Assessment and plan (1) CKD (chronic kidney disease): Qualifiers: Chronic kidney disease stage: stage 5, not on chronic dialysis Qualified Code(s): N18.5 - Chronic kidney disease, stage 5 (2) Type 2 diabetes mellitus: Qualifiers: Diabetes mellitus senior care insulin use: with tank terminal gauger use Diabetes mellitus complication status: with other specified complication Qualified Code(s): E11.69 - Type 2 diabetes mellitus with other specified complication; Z79.4 - tank terminal gauger (current) use of insulin (3) Osteomyelitis of left foot: Qualifiers: Osteomyelitis type: chronic multifocal Qualified Code(s): M86.372 - Chronic multifocal osteomyelitis, left ankle and foot (4) Cellulitis of left foot: Plan 57-year-old male with chronic osteomyelitis left calcaneus, x-ray shows osteolysis of approximately one third of the posterior calcaneal tuberosity with continued erosive changes, cloacae and sequestrum. No soft tissue emphysema. I reviewed clinical and radiographic findings with the patient at length, I recommended a below-knee amputation as a more definitive level of amputation, patient is agreeable. The patient's condition now warrants consideration for a more proximal level of amputation, specifically a below-knee or above-knee amputation. 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 Mr. Robison demonstrated comprehension of the situation and the need for further surgical intervention. He expressed agreement to proceed with the higher level of amputation as recommended. She understands the need for another surgical consultation with the appropriate expertise for further evaluation and has agreed to the referral process. Coding Level of Care Code Acute Code for [facility] Diagnoses CKD (chronic kidney disease) N18.5 Chronic kidney disease stage: stage 5, not on chronic dialysis Type 2 diabetes mellitus with other specified complication, with long-term current use of insulin E11.69; Z79.4 Diabetes mellitus senior care insulin use: with senior care use Diabetes mellitus complication status: with other specified complication Chronic multifocal osteomyelitis of left foot M86.372 Osteomyelitis type: chronic multifocal Cellulitis of left foot L03.116
[2023-08-29] MEDS: hyDRALAzine 10 mg Tablet PO ×2 (08:13→17:30)
[2023-08-29] MEDS: famotidine 20 mg Tablet PO ×2 (08:13→17:31)
[2023-08-29] MEDS: pregabalin 100 mg Capsule 200 MG PO ×3 (08:13→20:45)
[2023-08-29] MEDS: metoprolol tartrate 50 mg Tablet 100 MG PO ×2 (08:13→17:30)
[2023-08-29] MEDS: pantoprazole DR 40 mg Tablet PO (08:13)
[2023-08-29] MEDS: heparin 5,000 unit/mL INJ 1 mL 5000 UNIT SUBCUT ×2 (08:13→20:42)
[2023-08-29] MEDS: amlodipine 10 mg Tablet PO (08:13)
--- NOTE | 2023-08-29 10:22 | PC.CHAP ---
Pastoral Care Encounter/Spiritual Assessment Type of Contact [] Declined floor care technician visit [] Patient/Family/Request visit [] Outpatient visit [] Follow-up visit [] Physician referral [] Code/Alert [x] Routine visit [] Staff referral [] Actively dying [] Patient sleeping [] Family support [] [] Out of room [] Palliative care [] [x] Receiving care in room [] Pre-surgical visit [] Trauma [] Long length of stay [] ICU visit [] Other: Relational/Emotional Strength [x] Patient feels connected with others/family/visitors/staff [] Distress [] Loneliness/isolation [] Abandonment Spirituality of Patient [x] Person of Macy [] Attends Mormon of their [place]acy [x] Believes in Prayer [] Reads Bible or Synagogue materials [] There are Spiritual issues to be addressed Telephone Answering Service Operator Interventions [x] Prayer [x] Active listening [x] Non-anxious presence [x] Spiritual/emotional support [] Crisis/trauma care [x] Spiritual counseling [] Bereavement support [] Provided bereavement packet [] Provided Bible/devotional materials [] Provided toy/stuffed animal, coloring book to patient or family member [] Provided Communion [] Anointing/[place] [] Salvation [x] Completed spiritual assessment [] Other: Impact on Illness or Injury [] Angry [] Fearful [] Anxious [] Often cries [] Exhaustion [] Unable to work [] Unable to attend confucianist [] Unable to walk/stand [] Unable to read [] Unable to drive [] Unable to eat/drink [] Unable to sleep [] Unable to be with family [] Patient intubated [] Other: Summary has an examintion has other health problems not sure when they well go home has a postive attitude +1 Time spent with patient 10 mins
--- NOTE | 2023-08-29 13:42 | P.CONIM_ITS ---
Providers/Reason For Consult 2 Consulting Physician/Specialty*: [facility]/Nephrology Reason for Consult*: ESRD-PD Attending Physician: Kelsie Cedillo MD Primary Care Provider: SERAFIN Reza History of Present Illness History of Present Illness Tim Robison is a 57 year old male With past medical history of diabetes, ESRD, hypertension, coronary artery disease with prior NSTEMI, CHF diabetic foot ulcers. Patient followed at infectious disease clinic and wound care clinic due to chronic left foot osteomyelitis, nonhealing wound. Patient failed multiple antibiotic treatments and now presented to the hospital. In the ER patient is hypertensive, other vital signs are stable, labs significant for potassium of 5.8 creatinine of 6.1 CO2 of 18. Patient also has end-stage renal disease on peritoneal dialysis currently. Review of Systems 2 Narrative: Other review of systems negative Medications/Allergies Home Medications Medication Instructions Recorded Confirmed Last Taken Type gabapentin 300 mg capsule 300 mg PO BEDTIME 10/11/20 08/29/23 08/28/23 History fluticasone 100 mcg-salmeterol 50 1 inh inhalation BID #60 ea 11/02/21 08/29/23 08/28/23 Rx mcg/dose blistr powdr for inhalation (Advair Diskus) blood-glucose meter,continuous #1 ea 04/23/22 08/29/23 01/30/23 Rx (Dexcom G6 [employer] [place]) blood-glucose sensor (Dexcom G6 #9 ea 04/23/22 08/29/23 01/30/23 Rx Sensor device) blood-glucose transmitter (Dexcom #3 ea 04/23/22 08/29/23 01/30/23 Rx G6 Transmitter device) albuterol sulfate 90 mcg/actuation 1 puff inhalation Q6H PRN 11/29/22 08/29/23 01/30/23 History aerosol inhaler shortness of breath or wheezing atorvastatin 40 mg tablet 40 mg PO BEDTIME 11/29/22 08/29/23 08/28/23 History famotidine 20 mg tablet 20 mg PO BID 11/29/22 08/29/23 08/28/23 History metoprolol tartrate 100 mg tablet 100 mg PO BID 11/29/22 08/29/23 08/28/23 History pregabalin 200 mg capsule (Lyrica) 200 mg PO TID 11/29/22 08/29/2323 History Podus Boot to the Left #1 ea 12/03/22 08/29/23 01/30/23 Rx aspirin 81 mg chewable tablet 81 mg PO QAM #60 tabs 12/06/22 08/29/23 08/28/23 Rx hydralazine 10 mg tablet 10 mg PO BID #60 tabs 12/06/22 08/29/23 08/28/23 Rx insulin lispro 100 unit/mL See Rx Instructions .Route 01/07/23 08/29/23 08/28/23 Rx subcutaneous pen (Humalog KwikPen .COMPLEX #15 mL (U-100) Insulin) clopidogrel 75 mg tablet (Plavix) 75 mg PO QAM 01/18/23 08/29/23 08/28/23 History docusate sodium 100 mg capsule 100 mg PO BID PRN Constipation 01/18/23 08/29/23 01/30/23 History isosorbide mononitrate 30 mg 30 mg PO QAM 01/18/23 08/29/23 08/28/23 History tablet,extended release 24 hr amlodipine 10 mg tablet 10 mg PO DAILY 01/30/23 08/29/23 08/28/23 History furosemide 20 mg tablet (Lasix) 20 - 40 mg PO DAILY PRN Edema 01/30/23 08/29/23 Unknown History ergocalciferol (vitamin D2) 1,250 See Rx Instructions .Route .COMPLEX 08/29/23 08/29/23 Unknown History mcg (50,000 unit) capsule (Vitamin D2) insulin detemir U-100 100 unit/mL 20 unit SUBCUT BEDTIME 08/29/23 08/29/23 08/28/23 History (3 mL) subcutaneous pen (Levemir FlexPen) omeprazole 40 mg capsule,delayed 40 mg PO DAILY 08/29/23 08/29/23 08/28/23 History release vit B,C-folic ac 800 mcg-zinc 12.5 1 tab PO DAILY 08/29/23 08/29/23 Unknown History mg-selen-D3 2,000 unit-vit E tablet (RenaPlex-D) Allergies Allergy/AdvReac Type Severity Reaction Status Date / Time Iodinated Contrast Media Allergy ALGY-Hives Verified 08/12/23 08:46 Current Medications Generic Name Dose Route Start Last Admin Trade Name Freq PRN Reason Stop Dose Admin Amlodipine Besylate 10 mg 08/29/23 09:00 08/29/23 08:13 Amlodipine 10 Mg Tablet PO 10 mg DAILY KELSEY Administration Aspirin 81 mg 08/29/23 06:00 08/29/23 05:46 Aspirin 81 Mg Ec Tablet PO 81 mg QAM KELSEY Administration Atorvastatin Calcium 40 mg 08/28/23 21:00 08/28/23 21:39 Atorvastatin 40 Mg Tablet PO 40 mg BEDTIME KELSEY Administration Famotidine 20 mg 08/29/23 09:00 08/29/23 08:13 Famotidine 20 Mg Tablet PO 20 mg BID KELSEY Administration Gabapentin 300 mg 08/28/23 21:00 08/28/23 21:45 Gabapentin 300 Mg Capsule PO 300 mg BEDTIME KELSEY Administration Heparin Sodium (Porcine) 5,000 unit 08/28/23 20:00 08/29/23 08:13 Heparin 5,000 Unit/Ml Inj 1 Ml SUBCUT 5,000 unit Q12H KELSEY Administration Hydralazine HCl 10 mg 08/29/23 09:00 08/29/23 08:13 Hydralazine 10 Mg Tablet PO 10 mg BID KELSEY Administration Piperacillin Sod/Tazobactam 50 mls @ 12.5 mls/hr 08/28/23 20:00 08/29/23 11:50 Sod 3.375 gm/ Sodium Chloride IV 12.5 mls/hr Q8H KELSEY Administration Protocol As Directed Vancomycin/PEG/NADA/Lysine/Water 1,250 mg in 250 mls @ 200 mls/hr 08/28/23 21:30 08/28/23 23:35 Vancocin IV Infused Q48H KELSEY Infusion Isosorbide Mononitrate 30 mg 08/29/23 06:00 08/29/23 05:47 Isosorbide Mononitrate Er 30 Mg Tablet PO 30 mg QAM KELSEY Administration Metoprolol Tartrate 100 mg 08/29/23 09:00 08/29/23 08:13 Metoprolol Tartrate 50 Mg Tablet PO 100 mg BID KELSEY Administration Pantoprazole Sodium 40 mg 08/29/23 09:00 08/29/23 08:[address] 40 Mg Tablet PO 40 mg DAILY KELSEY Administration Pregabalin 200 mg 08/28/23 21:00 08/29/23 08:13 Pregabalin 100 Mg Capsule PO 200 mg TID KELSEY Administration PFSH Acute 2 PFSH: Medical History COVID Type 2 diabetes mellitus with foot ulcer NSTEMI (non-ST elevated myocardial infarction) Chronic osteomyelitis Aspiration pneumonia CKD (chronic kidney disease) PVD (peripheral vascular disease) Chronic ulcer of right foot with fat layer exposed 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 Diabetic peripheral neuropathy associated with type 2 diabetes mellitus Elevated troponin Acute diastolic heart failure Chronic kidney disease Hypoxia Hyperkalemia Congestive heart failure Type 2 diabetes mellitus Diabetic ulcer of foot associated with diabetes mellitus due to underlying condition, with fat layer exposed Hyperkalemia Acute kidney injury superimposed on CKD Chronic osteomyelitis 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 Uncontrolled type 2 diabetes with neuropathy Hyperlipidemia Onychomycosis of nail of digit of hand Neuropathy Diabetes Surgical History H/O circumcision H/O colonoscopy 7 yrs ago Status post debridement of ulcer of heel Family History Brother Cancer Sister Lung disease Mother Heart failure Father Chronic kidney failure Denies family history of Anesthesia complication Bleeding disorder Social History Smoking and tobacco/nicotine status: former use of tobacco/nicotine Second hand smoke exposure: No Alcohol intake: never Substance/Drug Use: never Adopted: No Lives independently: Yes Marital status: Single Current occupational status: disabled Vitals/I&O/Wt Last Vital Signs Temp 97.8 F 08/29/23 11:23 Pulse 64 08/29/23 11:23 Resp 16 08/29/23 11:23 BP 132/75 08/29/23 11:23 Pulse Ox 93 08/29/23 11:23 O2 Del Method Room Air 08/29/23 11:23 08/28/23 08/29/23 08/29/23 22:59 06:59 14:59 Intake Total 300 / 300 50 / 50 Output Total 400 / 400 800 / 1200 Balance -400 / -400 -500 / -900 50 / 50 Weight last 48 hrs Weight 117.991 kg Weight 118.07 kg Weight 115.212 kg Physical Exam 2 Narrative: awake alert, no acute distress S1-S2 regular rate and rhythm per report Lungs clear per report Lower extremity edema Data 08/29/23 04:26 08/28/23 22:10 Micro: Microbiology 08/28/23 16:09 Blood Culture - Preliminary Blood SPECIMEN COLLECTED 08/28/23 16:05 Blood Culture - Preliminary Blood SPECIMEN COLLECTED A&P Assessment and plan (1) ESRD (end stage renal disease) on dialysis: Plan 1. End-stage renal disease: On peritoneal dialysis, patient does manual exchanges at home recently has using 4.25% dextrose solution. Will do 2 exchanges while in the hospital- 2.5% and 4.25% solution, dwell for 4 hours. -2 g sodium restriction and 1500 mill fluid restriction 2. Left foot nonhealing ulcer and osteomyelitis: On antibiotics, seen by podiatry, may require BKA 3. Hyperkalemia: Low K diet and started HD 4. Metabolic acidosis: Will add Bicitra 5. Anemia: Will order BRAENNA Patient evaluated using audiovisual cart. Time spent 40 minutes. Consult Attestations 2 Medical Necessity Statement: per medicien team Coding Level of Care Code Acute Code for Chg Fwd Diagnoses ESRD (end stage renal disease) on dialysis N18.6; Z99.2
--- NOTE | 2023-08-29 15:11 | PM.PN ---
Subjective Subjective: No acute interim events. Awaiting culture results. Continues to be on IV antibiotics. Foot looks overall unchanged. He has decided against a BKA for now Vitals/I&O/Wt Last Vital Signs Temp 97.8 F 08/29/23 11:23 Pulse 64 08/29/23 11:23 Resp 16 08/29/23 11:23 BP 132/75 08/29/23 11:23 Pulse Ox 93 08/29/23 11:23 O2 Del Method Room Air 08/29/23 11:23 08/29/23 08/29/23 08/29/23 06:59 14:59 22:59 Intake Total 300 / 300 50 / 50 Output Total 800 / 1200 Balance -500 / -900 50 / 50 Weight last 48 hrs Weight 117.991 kg Weight 118.07 kg Weight 115.212 kg Physical Exam Narrative: General: No acute distress, AO x3 HEENT: PERRLA, pupils bilaterally equal and reactive, pallors not present Chest: Normal vesicular breath sounds, no added sounds, equal good air entry bilaterally CVS: S1-S2 regular, no murmurs, no tachycardia, no gallops, no rubs Abdomen: Soft, nontender, no organomegaly, bowel sounds present Neuro: No focal deficits, no facial deformity, AO x3, power 5/5 in all limbs Data 08/29/23 04:26 08/28/23 22:10 Micro: Microbiology 08/28/23 16:09 Blood Culture - Preliminary Blood SPECIMEN COLLECTED 08/28/23 16:05 Blood Culture - Preliminary Blood SPECIMEN COLLECTED A&P Assessment and plan (1) Cellulitis of left foot: (2) Osteomyelitis of left foot: Qualifiers: Osteomyelitis type: chronic multifocal Qualified Code(s): M86.372 - Chronic multifocal osteomyelitis, left ankle and foot (3) CKD (chronic kidney disease): Qualifiers: Chronic kidney disease stage: stage 5, not on chronic dialysis Qualified Code(s): N18.5 - Chronic kidney disease, stage 5 Plan 57-year-old male with known chronic osteomyelitis and nonhealing wound over the left foot dating back several years, currently presenting with worsening of the wound and surrounding cellulitis, more acutely worsened over the past 2 weeks. Patient has been started empirically on treatment with piperacillin/tazobactam and vancomycin for treatment of cellulitis. Superficial wound cultures taken, currently awaited. Podiatry consulted, recommended BKA. Similar recommendations have been made multiple times in the past, however patient has not been willing to proceed with any amputation surgery previously. He wishes to hold off on BKA currently as well. Additionally no surgeon available to perform BKA until Saturday currently. Continue to hold Plavix, in case wound worsens, BKA may be the only remaining option. Patient states he will consider BKA as a last resort Discussed again with him extensively that long-term antibiotics are highly unlikely to be of any significant benefit to him. We will aim for a short-term course to treat his current cellulitis and then continued consideration for BKA and continued wound care management is recommended. Continue peritoneal dialysis Attestations Medical Necessity Statement*: Continued need for IV antibiotics, monitor for improvement Coding Level of Care Code Acute Code for [facility] Diagnoses Cellulitis of left foot L03.116 Chronic multifocal osteomyelitis of left foot M86.372 Osteomyelitis type: chronic multifocal CKD (chronic kidney disease) N18.5 Chronic kidney disease stage: stage 5, not on chronic dialysis
[2023-08-29] MEDS: nystatin 100,000 unit/mL UDC 5 mL 400000 UNIT PO ×2 (17:31→20:45)
[2023-08-29] MEDS: gabapentin 300 mg Capsule PO (20:45)
[2023-08-29] MEDS: atorvastatin 40 mg Tablet PO (20:45)
[2023-08-29] MEDS: citric acid-sodium citrate 30 mL UDC PO (21:55)
[2023-08-29] MEDS: epoetin alfa 1000 Unit/0.05 mL (ESRD) 20000 UNIT SUBCUT (21:57)
[2023-08-30] VITALS (8 sets, daily range): BP systolic 136–154; BP diastolic 71–83; PULSE 65–84; RESP 16–18; TEMP 36.3–37; O2SAT 89–95
[2023-08-30] MEDS: piperacillin-tazobactam 3.375 GM in sodium chloride 0.9% (plus) 50 ML IV ×3 (03:22→23:14)
[2023-08-30] MEDS: aspirin 81 mg EC Tablet PO (05:14)
[2023-08-30] MEDS: isosorbide mononitrate ER 30 mg Tablet PO (05:14)
[2023-08-30] MEDS: famotidine 20 mg Tablet PO ×2 (08:56→17:12)
[2023-08-30] MEDS: pregabalin 100 mg Capsule 200 MG PO ×3 (08:56→20:56)
[2023-08-30] MEDS: heparin 5,000 unit/mL INJ 1 mL 5000 UNIT SUBCUT ×2 (08:56→20:55)
[2023-08-30] MEDS: amlodipine 10 mg Tablet PO (08:56)
[2023-08-30] MEDS: polyethylene glycol 3350 Pkt 17 gm PO (08:56)
[2023-08-30] MEDS: hyDRALAzine 10 mg Tablet PO ×2 (08:56→17:12)
[2023-08-30] MEDS: nystatin 100,000 unit/mL UDC 5 mL 400000 UNIT PO ×4 (08:56→20:56)
[2023-08-30] MEDS: metoprolol tartrate 50 mg Tablet 100 MG PO ×2 (08:56→17:11)
[2023-08-30] MEDS: pantoprazole DR 40 mg Tablet PO (08:56)
[2023-08-30 09:44] LABS: Anion Gap 17.9 (5-19); Blood Urea Nitrogen 50 mg/dL (6-20); Calcium 7.8 mg/dL (8.5-10.5); Carbon Dioxide 17 mmol/L (22-29); Chloride 105 mmol/L (98-107); Glomerular Filtration Rate 9.6 mL/min (90-130); Glucose 351 mg/dL (65-115); Osmolality Calculated 303 mOsm/kg (285-295); Sodium 133 mmol/L (136-145)
[2023-08-30 09:46] LABS: Potassium 6.9 mmol/L (3.5-5.1)
[2023-08-30] MEDS: Dianeal low Ca w/2.5% dex 2,000 mL Bag 2000 ML INTRAPERIT ×2 (09:59→14:40)
--- NOTE | 2023-08-30 12:03 | P.PN_ITS ---
Subjective 2 Subjective: PD was not done yesterday - unclear reason , orders placed yesterday K elevated today Medications: Reviewed: Yes Vitals/I&O/Wt Last Vital Signs Temp 97.6 F 08/30/23 11:41 Pulse 72 08/30/23 11:41 Resp 17 08/30/23 11:41 BP 141/81 08/30/23 11:41 Pulse Ox 89 L 08/30/23 11:41 O2 Del Method Room Air 08/30/23 11:41 08/29/23 08/30/23 08/30/23 22:59 06:59 14:59 Intake Total 170 / 220 50 / 270 530 / 530 Output Total 750 / 750 Balance -580 / -530 50 / -480 530 / 530 Weight last 48 hrs Weight 118.529 kg Weight 117.991 kg Weight 118.07 kg Weight 115.212 kg Physical Exam 2 Narrative: awake alert, no acute distress S1-S2 regular rate and rhythm per report Lungs clear per report Lower extremity edema Data 08/29/23 04:26 08/30/23 09:06 Micro: Microbiology 08/28/23 17:54 Wound Culture - Preliminary Foot Left Gram Negative Rods 08/28/23 16:09 Blood Culture - Preliminary Blood NEGATIVE TO DATE 08/28/23 16:05 Blood Culture - Preliminary Blood NEGATIVE TO DATE A&P Assessment and plan (1) ESRD (end stage renal disease) on dialysis: Plan 1. End-stage renal disease: On peritoneal dialysis, patient does manual exchanges at home recently has using 4.25% dextrose solution. Will do 3 exchanges while in the hospital- 2.5% x 2 exchanges and 4.25% solution, dwell for 4 hours. -2 g sodium restriction and 1500 mill fluid restriction 2. Left foot nonhealing ulcer and osteomyelitis: On antibiotics, seen by podiatry, may require BKA 3. Hyperkalemia: Low K diet and started HD 4. Metabolic acidosis: Will add Bicitra 5. Anemia: Will order BREANNA Patient evaluated using audiovisual cart. Time spent 20 minutes. Attestations 2 Medical Necessity Statement*: per medicine team Coding Level of Care Code Acute Code for Chg Fwd Diagnoses ESRD (end stage renal disease) on dialysis N18.6; Z99.2
[2023-08-30] MEDS: calcium gluconate 0.9% NaCL 1 GM/50 ML PREMIX IV ×2 (12:24→13:00)
[2023-08-30] MEDS: sodium bicarbonate 8.4% 1 mEq/mL 50mL Syr 100 MEQ IVP (12:25)
[2023-08-30] MEDS: FUROsemide 10 mg/mL SDV 10mL 80 MG IVP (12:25)
[2023-08-30] MEDS: sodium polystyrene sulfonate 15 gm/60 mL Btl 30 GM PO (12:26)
--- NOTE | 2023-08-30 12:30 | PC.SOCIAL ---
IMM Update pg 2 of IMM updated and reviewed w/ patient. Copy provided and copy dated, initialed and placed in chart.
[2023-08-30] MEDS: citric acid-sodium citrate 30 mL UDC 60 ML PO (13:01)
--- NOTE | 2023-08-30 17:38 | P.PN_ITS ---
Subjective 2 Subjective: Patient denies new complaints. His great potassium today is at 6.9. He missed dialysis yesterday for unclear reason. Completed peritoneal dialysis this afternoon. Recheck CMP ordered. Foot is overall unchanged. Still wants to hold off on BKA. Wound culture with gram-negative rods pending further identification, suspect Pseudomonas as with prior cultures. Medications: Reviewed: Yes Vitals/I&O/Wt Last Vital Signs Temp 97.4 F L 08/30/23 15:30 Pulse 81 08/30/23 15:30 Resp 16 08/30/23 15:30 BP 136/71 08/30/23 15:30 Pulse Ox 89 L 08/30/23 11:41 O2 Del Method Room Air 08/30/23 11:41 08/30/23 08/30/23 08/30/23 06:59 14:59 22:59 Intake Total 50 / 270 630 / 630 Output Total 450 / 450 550 / 1000 Balance 50 / -480 180 / 180 -550 / -370 Weight last 48 hrs Weight 118.529 kg Weight 117.991 kg Weight 118.07 kg Physical Exam 2 Narrative: General: No acute distress, AO x3 HEENT: PERRLA, pupils bilaterally equal and reactive, pallors not present Chest: Normal vesicular breath sounds, no added sounds, equal good air entry bilaterally CVS: S1-S2 regular, no murmurs, no tachycardia, no gallops, no rubs Abdomen: Soft, nontender, no organomegaly, bowel sounds present Neuro: No focal deficits, no facial deformity, AO x3, power 5/5 in all limbs Data 08/29/23 04:26 08/30/23 09:06 Micro: Microbiology 08/28/23 17:54 Wound Culture - Preliminary Foot Left Gram Negative Rods 08/28/23 16:09 Blood Culture - Preliminary Blood NEGATIVE TO DATE 08/28/23 16:05 Blood Culture - Preliminary Blood NEGATIVE TO DATE A&P Assessment and plan (1) Cellulitis of left foot: (2) Osteomyelitis of left foot: Qualifiers: Osteomyelitis type: chronic multifocal Qualified Code(s): M86.372 - Chronic multifocal osteomyelitis, left ankle and foot (3) CKD (chronic kidney disease): Qualifiers: Chronic kidney disease stage: stage 5, not on chronic dialysis Qualified Code(s): N18.5 - Chronic kidney disease, stage 5 Plan 57-year-old male with known chronic osteomyelitis and nonhealing wound over the left foot dating back several years, currently presenting with worsening of the wound and surrounding cellulitis, more acutely worsened over the past 2 weeks. Patient has been started empirically on treatment with piperacillin/tazobactam and vancomycin for treatment of cellulitis. Superficial wound cultures taken, preliminary gram-negative rods. Awaiting further identification. Podiatry consulted, recommended BKA. Similar recommendations have been made multiple times in the past, however patient has not been willing to proceed with any amputation surgery previously. He wishes to hold off on BKA currently as well. Additionally no surgeon available to perform BKA until Saturday currently. Continue to hold Plavix, in case wound worsens, BKA may be the only remaining option. Patient states he will consider BKA as a last resort Discussed again with him extensively that long-term antibiotics are highly unlikely to be of any significant benefit to him. We will aim for a short-term course to treat his current cellulitis , likely with oral medications and then continued consideration for BKA and continued wound care management is recommended. Continue peritoneal dialysis Hyperkalemia, potassium at 6.9 today. Likely due to missed dialysis. Repeat CMP is awaited. Attestations 2 Medical Necessity Statement*: Peritoneal dialysis today. Potassium 6.9, repeat potassium elevated. Continued antibiotics while pending susceptibility data. Coding Level of Care Code Acute Code for [facility] Diagnoses Cellulitis of left foot L03.116 Chronic multifocal osteomyelitis of left foot M86.372 Osteomyelitis type: chronic multifocal CKD (chronic kidney disease) N18.5 Chronic kidney disease stage: stage 5, not on chronic dialysis
[2023-08-30] MEDS: Dianeal low Ca w/4.25% dex 2,000 mL Bag 2000 ML INTRAPERIT (18:09)
[2023-08-30 18:35] LABS: Alanine Aminotransferase 8 U/L (0-41); Albumin Level 2.7 g/dL (3.5-5.2); Alkaline Phosphatase 196 U/L (40-130); Anion Gap 17.6 (5-19); Aspartate Amino Transferase 13 U/L (0-40); Blood Urea Nitrogen 47 mg/dL (6-20); Calcium 8.1 mg/dL (8.5-10.5); Carbon Dioxide 21 mmol/L (22-29); Chloride 101 mmol/L (98-107); Glomerular Filtration Rate 11.1 mL/min (90-130); Osmolality Calculated 318 mOsm/kg (285-295); Potassium 5.6 mmol/L (3.5-5.1); Sodium 134 mmol/L (136-145); Total Bilirubin 0.4 mg/dL (0.15-1.2); Total Protein 6.7 g/dL (6.6-8.7)
[2023-08-30 18:37] LABS: Glucose 594 mg/dL (65-115)
[2023-08-30] MEDS: albuterol 2.5 mg/3 mL Neb INHALATION (18:57)
[2023-08-30] MEDS: atorvastatin 40 mg Tablet PO (20:55)
[2023-08-30] MEDS: gabapentin 300 mg Capsule PO (20:55)
[2023-08-30] MEDS: insulin regular-human 10 UNIT in SYRINGE 1 EACH IVP (20:55)
[2023-08-30] MEDS: vancomycin 1,250 MG/250 ML PIGGYBACK 200 MG IV (20:56)
[2023-08-30] MEDS: insulin glargine 100 units/1 mL 20 UNIT SUBCUT (20:56)
[2023-08-30 21:11] LABS: Alanine Aminotransferase 8 U/L (0-41); Albumin Level 2.7 g/dL (3.5-5.2); Alkaline Phosphatase 205 U/L (40-130); Anion Gap 15.3 (5-19); Aspartate Amino Transferase 14 U/L (0-40); Blood Urea Nitrogen 46 mg/dL (6-20); Calcium 8.3 mg/dL (8.5-10.5); Carbon Dioxide 24 mmol/L (22-29); Chloride 102 mmol/L (98-107); Globulin 4.1 g/dL (1.3-4.6); Glomerular Filtration Rate 10.6 mL/min (90-130); Osmolality Calculated 327 mOsm/kg (285-295); Potassium 5.3 mmol/L (3.5-5.1); Sodium 136 mmol/L (136-145); Total Bilirubin 0.4 mg/dL (0.15-1.2); Total Protein 6.8 g/dL (6.6-8.7)
[2023-08-30 21:21] LABS: Glucose 688 mg/dL (65-115)
[2023-08-30 21:35] LABS: Glucose Point of Care > 600 mg/dL (70-110)
[2023-08-30 22:41] LABS: Glucose Point of Care 455 mg/dL (70-110)
[2023-08-30] MEDS: insulin lispro 100 unit/1 mL SUBCUT (23:12)
[2023-08-31] VITALS (9 sets, daily range): BP systolic 138–152; BP diastolic 74–80; PULSE 60–70; RESP 16–18; TEMP 36.5–36.8; O2SAT 95–97; BMI 39.3
[2023-08-31 04:54] LABS: Basophils # 0.1 10^3/uL (0.0-0.1); Basophils % 1.2 %; Eosinophils # 0.4 10^3/uL (0.0-0.8); Eosinophils % 6.2 %; Hematocrit 33.7 % (37-53); Lymphocytes # 0.8 10^3/uL (0.8-4.8); Lymphocytes % 11.8 %; Mean Corpuscular HGB Conc 30.6 g/dL (30-55); Mean Corpuscular Hemoglobin 28.8 pg (27-33); Mean Corpuscular Volume 94.1 fl (82-101); Mean Platelet Volume 12.3 fL (7.4-10.4); Monocytes # 0.7 10^3/uL (0.2-0.9); Monocytes % 9.8 %; Neutrophils # 4.66 10^3/uL (1.8-7.7); Neutrophils % 70.2 %; Nucleated Red Blood Cells % 0 %; Platelet Count 175 10^3/cmm (157-399); Red Blood Count 3.58 10^6/uL (3.85-5.65); Red Cell Distribution Width 13.5 % (12.1-15.1); White Blood Count 6.63 10^3/uL (3.29-11.43)
[2023-08-31] MEDS: piperacillin-tazobactam 3.375 GM in sodium chloride 0.9% (plus) 50 ML IV ×3 (06:02→22:03)
[2023-08-31] MEDS: isosorbide mononitrate ER 30 mg Tablet PO (06:03)
[2023-08-31] MEDS: aspirin 81 mg EC Tablet PO (06:03)
[2023-08-31 07:27] LABS: Glucose Point of Care 186 mg/dL (70-110)
[2023-08-31] MEDS: Dianeal low Ca w/2.5% dex 2,000 mL Bag 2000 ML INTRAPERIT ×2 (09:24→15:01)
[2023-08-31] MEDS: hyDRALAzine 10 mg Tablet PO ×2 (09:24→17:18)
[2023-08-31] MEDS: amlodipine 10 mg Tablet PO (09:24)
[2023-08-31] MEDS: nystatin 100,000 unit/mL UDC 5 mL 400000 UNIT PO ×4 (09:24→20:04)
[2023-08-31] MEDS: famotidine 20 mg Tablet PO ×2 (09:25→17:18)
[2023-08-31] MEDS: pregabalin 100 mg Capsule 200 MG PO ×3 (09:25→20:04)
[2023-08-31] MEDS: metoprolol tartrate 50 mg Tablet 100 MG PO ×2 (09:25→17:18)
[2023-08-31] MEDS: pantoprazole DR 40 mg Tablet PO (09:25)
[2023-08-31] MEDS: polyethylene glycol 3350 Pkt 17 gm PO (09:25)
[2023-08-31] MEDS: heparin 5,000 unit/mL INJ 1 mL 5000 UNIT SUBCUT ×2 (09:25→19:35)
[2023-08-31] MEDS: insulin lispro 100 unit/1 mL SUBCUT ×4 (09:38→22:03)
[2023-08-31 09:39] LABS: Glucose Point of Care 252 mg/dL (70-110)
[2023-08-31 11:44] LABS: Glucose Point of Care 229 mg/dL (70-110)
--- NOTE | 2023-08-31 16:37 | P.PN_ITS ---
Subjective 2 Subjective: Undergoing PT today. Awaiting identification of gram-negative rods to be able to a certain empiric coverage. Cellulitis over lower half of the leg appears to be improving. Wound overall appears to be unchanged and macerated. Still wishes to defer BKA. Medications: Reviewed: Yes Vitals/I&O/Wt Last Vital Signs Temp 98.3 F 08/31/23 16:00 Pulse 66 08/31/23 16:00 Resp 16 08/31/23 16:00 BP 138/74 08/31/23 16:00 Pulse Ox 96 08/31/23 16:00 O2 Del Method Nasal Cannula 08/31/23 03:29 O2 Flow Rate 2 08/31/23 03:29 08/31/23 08/31/23 08/31/23 06:59 14:59 22:59 Intake Total 300 / 980.1 290 / 290 Output Total 700 / 2350 Balance -400 / -1369.9 290 / 290 Weight last 48 hrs Weight 121.563 kg Weight 120.882 kg Weight 120.826 kg Weight 118.529 kg Physical Exam 2 Narrative: General: No acute distress, AO x3 HEENT: PERRLA, pupils bilaterally equal and reactive, pallors not present Chest: Normal vesicular breath sounds, no added sounds, equal good air entry bilaterally CVS: S1-S2 regular, no murmurs, no tachycardia, no gallops, no rubs Abdomen: Soft, nontender, no organomegaly, bowel sounds present Neuro: No focal deficits, no facial deformity, AO x3, power 5/5 in all limbs Data 08/31/23 04:43 08/30/23 20:30 Micro: Microbiology 08/28/23 17:54 Wound Culture - Preliminary Foot Left Gram Negative Rods A&P Assessment and plan (1) Cellulitis of left foot: (2) Osteomyelitis of left foot: Qualifiers: Osteomyelitis type: chronic multifocal Qualified Code(s): M86.372 - Chronic multifocal osteomyelitis, left ankle and foot (3) CKD (chronic kidney disease): Qualifiers: Chronic kidney disease stage: stage 5, not on chronic dialysis Qualified Code(s): N18.5 - Chronic kidney disease, stage 5 Plan 57-year-old male with known chronic osteomyelitis and nonhealing wound over the left foot dating back several years, currently presenting with worsening of the wound and surrounding cellulitis, more acutely worsened over the past 2 weeks. Patient has been started empirically on treatment with piperacillin/tazobactam and vancomycin for treatment of cellulitis. Superficial wound cultures taken, preliminary gram-negative rods. Awaiting further identification. Podiatry consulted, recommended BKA. Similar recommendations have been made multiple times in the past, however patient has not been willing to proceed with any amputation surgery previously. He wishes to hold off on BKA currently as well. Additionally no surgeon available to perform BKA until Saturday currently. Continue to hold Plavix, in case wound worsens, BKA may be the only remaining option. Patient states he will consider BKA as a last resort Discussed again with him extensively that long-term antibiotics are highly unlikely to be of any significant benefit to him. We will aim for a short-term course to treat his current cellulitis , likely with oral medications and then continued consideration for BKA and continued wound care management is recommended. Continue peritoneal dialysis Hyperkalemia, potassium at 6.9 today. Likely due to missed dialysis. Repeat CMP is awaited. Plan for today. Continue peritoneal dialysis. Awaiting GNR identification. still wishes to defer BKA, anticipate discharge on oral abx with f/up as outpatient. Patient wants to trial oral abx over the next week and if no improvement will follow with Dr. Gil at wound care for surgical planning Attestations 2 Medical Necessity Statement*: awaiting ID and susceptibility from GNR on wound Coding Level of Care Code [facility] Diagnoses Cellulitis of left foot L03.116 Chronic multifocal osteomyelitis of left foot M86.372 Osteomyelitis type: chronic multifocal CKD (chronic kidney disease) N18.5 Chronic kidney disease stage: stage 5, not on chronic dialysis
[2023-08-31 16:40] LABS: Glucose Point of Care 164 mg/dL (70-110)
[2023-08-31 18:19] LABS: Alanine Aminotransferase 7 U/L (0-41); Albumin Level 2.6 g/dL (3.5-5.2); Alkaline Phosphatase 161 U/L (40-130); Anion Gap 16.6 (5-19); Aspartate Amino Transferase 14 U/L (0-40); Blood Urea Nitrogen 36 mg/dL (6-20); Calcium 8.2 mg/dL (8.5-10.5); Carbon Dioxide 23 mmol/L (22-29); Chloride 105 mmol/L (98-107); Globulin 3.9 g/dL (1.3-4.6); Glomerular Filtration Rate 11.8 mL/min (90-130); Glucose 142 mg/dL (65-115); Osmolality Calculated 301 mOsm/kg (285-295); Potassium 4.6 mmol/L (3.5-5.1); Sodium 140 mmol/L (136-145); Total Bilirubin 0.3 mg/dL (0.15-1.2); Total Protein 6.5 g/dL (6.6-8.7)
[2023-08-31 18:45] LABS: Add Urine Culture? No; Add Urine Microscopic? YES; Bilirubin Urine Neg (Negative); Blood Urine Trace (Negative); Glucose Urine UA 2+ (Normal); Ketones Urine Negative (Negative); Leukocyte Esterase Urine Negative (Negative); Nitrate Urine Negative (Negative); Protein Urine 3+ (Negative); RBC Urine 0-4 /hpf (0-2); Urine Appearance Clear (CLEAR); Urine Color Yellow (Yellow); Urobilinogen Urine Neg (Negative); WBC Urine 0-4 /hpf (0-5); pH Urine 6.5 (5-7)
[2023-08-31] MEDS: Dianeal low Ca w/4.25% dex 2,000 mL Bag 2000 ML INTRAPERIT (20:03)
[2023-08-31] MEDS: atorvastatin 40 mg Tablet PO (20:04)
[2023-08-31] MEDS: gabapentin 300 mg Capsule PO (20:04)
--- NOTE | 2023-08-31 21:14 | P.PN_ITS ---
Subjective 2 Subjective: no new complaints Medications: Reviewed: Yes Vitals/I&O/Wt Last Vital Signs Temp 97.7 F 08/31/23 20:00 Pulse 68 08/31/23 20:18 Resp 18 08/31/23 20:18 BP 149/80 08/31/23 20:00 Pulse Ox 95 08/31/23 20:18 O2 Del Method Nasal Cannula 08/31/23 20:00 O2 Flow Rate 1.5 08/31/23 20:00 08/31/23 08/31/23 08/31/23 06:59 14:59 22:59 Intake Total 300 / 980.1 290 / 290 290 / 580 Output Total 700 / 2350 600 / 600 Balance -400 / -1369.9 290 / 290 -310 / -20 Weight last 48 hrs Weight 121.563 kg Weight 120.882 kg Weight 120.826 kg Weight 118.529 kg Physical Exam 2 Narrative: awake alert, no acute distress S1-S2 regular rate and rhythm per report Lungs clear per report Lower extremity edema Data 08/31/23 04:43 08/31/23 17:39 Micro: Microbiology 08/28/23 17:54 Wound Culture - Preliminary Foot Left Gram Negative Rods A&P Assessment and plan (1) ESRD (end stage renal disease) on dialysis: Plan 1. End-stage renal disease: On peritoneal dialysis, patient does manual exchanges at home recently has using 4.25% dextrose solution. Will do 3 exchanges while in the hospital- 2.5% x 2 exchanges and 4.25% solution, dwell for 4 hours. -2 g sodium restriction and 1500 mill fluid restriction 2. Left foot nonhealing ulcer and osteomyelitis: On antibiotics, seen by podiatry, 3. Hyperkalemia: Low K diet and started HD 4. Metabolic acidosis: Will add Bicitra 5. Anemia: Will order BREANNA Patient evaluated using audiovisual cart. Time spent 20 minutes. Attestations 2 Medical Necessity Statement*: per medicien team Coding Level of Care Code Acute Code for Chg Fwd Diagnoses ESRD (end stage renal disease) on dialysis N18.6; Z99.2
[2023-08-31 21:42] LABS: Glucose Point of Care 209 mg/dL (70-110)
[2023-08-31] MEDS: insulin glargine 100 units/1 mL 20 UNIT SUBCUT (22:03)
[2023-09-01] VITALS (7 sets, daily range): BP systolic 133–157; BP diastolic 64–81; PULSE 60–70; RESP 16–18; TEMP 36.3–36.5; O2SAT 96–98; BMI 37.5
[2023-09-01 04:02] LABS: Basophils # 0.2 10^3/uL (0.0-0.1); Basophils % 1.2 %; Eosinophils # 1.1 10^3/uL (0.0-0.8); Eosinophils % 8.9 %; Hematocrit 43.4 % (37-53); Lymphocytes # 1.7 10^3/uL (0.8-4.8); Mean Corpuscular HGB Conc 31.3 g/dL (30-55); Mean Corpuscular Hemoglobin 28.8 pg (27-33); Mean Corpuscular Volume 91.9 fl (82-101); Mean Platelet Volume 12.6 fL (7.4-10.4); Monocytes # 1.2 10^3/uL (0.2-0.9); Neutrophils # 8.01 10^3/uL (1.8-7.7); Neutrophils % 64.8 %; Nucleated Red Blood Cells % 0 %; Platelet Count 272 10^3/cmm (157-399); Red Blood Count 4.72 10^6/uL (3.85-5.65); Red Cell Distribution Width 13.8 % (12.1-15.1); White Blood Count 12.36 10^3/uL (3.29-11.43)
[2023-09-01] MEDS: piperacillin-tazobactam 3.375 GM in sodium chloride 0.9% (plus) 50 ML IV (06:50)
[2023-09-01] MEDS: aspirin 81 mg EC Tablet PO (06:51)
[2023-09-01] MEDS: isosorbide mononitrate ER 30 mg Tablet PO (06:51)
[2023-09-01 07:40] LABS: Glucose Point of Care 201 mg/dL (70-110)
--- NOTE | 2023-09-01 07:41 | PC.NURSE ---
LIANG checked blood glucose this morning and reported to this nurse it was 46, patient was asymptomatic. This nurse gave patient 2 orange juice and 1 apple juice drink. This nurse recheck blood glucose 15 minutes later and glucose was up to 201. This nurse contacted Dr. Cedillo. Dr. Cedillo gave a verbal order to hold the 0800 sliding scale dose of humalog.
[2023-09-01 07:48] LABS: Glucose Point of Care 44 mg/dL (70-110)
[2023-09-01] MEDS: nystatin 100,000 unit/mL UDC 5 mL 400000 UNIT PO (07:55)
[2023-09-01] MEDS: polyethylene glycol 3350 Pkt 17 gm PO (07:55)
[2023-09-01] MEDS: heparin 5,000 unit/mL INJ 1 mL 5000 UNIT SUBCUT (07:56)
[2023-09-01] MEDS: pregabalin 100 mg Capsule 200 MG PO (07:56)
[2023-09-01] MEDS: hyDRALAzine 10 mg Tablet PO (07:56)
[2023-09-01] MEDS: metoprolol tartrate 50 mg Tablet 100 MG PO (07:56)
[2023-09-01] MEDS: pantoprazole DR 40 mg Tablet PO (07:56)
[2023-09-01] MEDS: amlodipine 10 mg Tablet PO (07:57)
[2023-09-01] MEDS: famotidine 20 mg Tablet PO (07:57)
[2023-09-01] MEDS: Dianeal low Ca w/2.5% dex 2,000 mL Bag 2000 ML INTRAPERIT (09:16)
[2023-09-01 09:28] LABS: Alanine Aminotransferase < 5 U/L (0-41); Albumin Level 2.3 g/dL (3.5-5.2); Alkaline Phosphatase 152 U/L (40-130); Anion Gap 16.6 (5-19); Aspartate Amino Transferase 13 U/L (0-40); Blood Urea Nitrogen 35 mg/dL (6-20); Calcium 8.1 mg/dL (8.5-10.5); Carbon Dioxide 23 mmol/L (22-29); Chloride 101 mmol/L (98-107); Globulin 4.1 g/dL (1.3-4.6); Glomerular Filtration Rate 11.3 mL/min (90-130); Glucose 153 mg/dL (65-115); Osmolality Calculated 293 mOsm/kg (285-295); Potassium 4.6 mmol/L (3.5-5.1); Sodium 136 mmol/L (136-145); Total Bilirubin 0.4 mg/dL (0.15-1.2); Total Protein 6.4 g/dL (6.6-8.7)
--- NOTE | 2023-09-01 10:38 | P.DS_ITS ---
Discharge Providers Date of Admission: 08/28/23 18:56 Date of Discharge: September 01, 2023 Attending Provider at Admission: Kelsie Cedillo MD Attending Provider at Discharge: Kelsie Cedillo MD Primary Care Provider: SERAFIN Reza Diagnoses at Discharge Discharge Diagnosis (1) ESRD (end stage renal disease) on dialysis: Status: Acute (2) Cellulitis of left foot: Status: Acute (3) Osteomyelitis of left foot: Status: Acute Qualifiers: Osteomyelitis type: chronic multifocal Qualified Code(s): M86.372 - Chronic multifocal osteomyelitis, left ankle and foot Reason for Visit Reason for Visit: swollen left foot Hospital Course Hospital Course 57-year-old male with known chronic calcaneus and metatarsal osteomyelitis and nonhealing wound over the left foot dating back several years, currently presenting with worsening of the wound and surrounding cellulitis,increased discharge and malodor, more acutely worsened over the past 2 weeks in spite of close follow up and optimal care at wound care clinic. Patient was treated with piperacillin/tazobactam and vancomycin for treatment of cellulitis. Superficial wound cultures taken, preliminary gram-negative rods and mitesh hemolytic streptococcus, per discussion with micro lab these are Enterobacter cloacae s/t fluoroquinolones. Podiatry consulted, recommended BKA. Similar recommendations have been made multiple times in the past due to refractory chronic osteomyelitis, however patient has not been willing to proceed with any amputation surgery. He wishes to hold off on BKA currently as well. Discussed again with him extensively that given the chronicity of his wound, co ntinued progression in spite of multiple treatment courses with IV and oral antibiotics over the years, it is highly likely that attempted foot salvage may not be successful. Long-term antibiotics are highly unlikely to be of any significant benefit to him. We will aim for a short-term course of 2 weeks to treat his current cellulitis. Patient acknowledges understanding of his complex medical issues and wants to trial oral antibiotics over the next week and if no improvement will follow with Dr. Carballo at wound care for surgical planning. He has an appt this upcoming saturday (today is Saturday). Continue PD at home. Physical Exam Narrative: General: No acute distress, AO x3 HEENT: PERRLA, pupils bilaterally equal and reactive, pallors not present Chest: Normal vesicular breath sounds, no added sounds, equal good air entry bilaterally CVS: S1-S2 regular, no murmurs, no tachycardia, no gallops, no rubs Abdomen: Soft, nontender, no organomegaly, bowel sounds present Neuro: No focal deficits, no facial deformity, AO x3, power 5/5 in all limbs EXT: large ulcer over left foot at heel with necrosed tissue at base Discharge Data Studies Completed and Pending Completed Studies During Hospitalization Category Date Time Status XR foot LT min 3V* [id number] Stat Exams 08/28/23 15:42 Completed Pending at discharge Category Date Time Status Blood Culture Stat Lab 08/28/23 16:09 Results Fosfomycin Susceptibility Test Routine Lab 08/30/23 16:58 Ordered Vancomycin Trough Timed Lab 09/01/23 20:30 Ordered Wound Culture Stat Lab 08/28/23 17:54 Results Radiology Impressions Foot X-Ray 08/28/23 15:42 IMPRESSION: Increased irregular sclerotic change of the calcaneus suggesting interval progression of osteomyelitis. MRI can further characterize acuity if this would change number operator. Laboratory Results WBC 12.36 10^3/uL (3.29-11.43) H 09/01/23 03:07 RBC 4.72 10^6/uL (3.85-5.65) 09/01/23 03:07 Hgb 13.60 g/dL (11.27-16.99) D 09/01/23 03:07 Hct 43.4 % (37-53) 09/01/23 03:07 MCV 91.9 fl (82-101) 09/01/23 03:07 MCH 28.8 pg (27-33) 09/01/23 03:07 MCHC 31.3 g/dL (30-55) 09/01/23 03:07 RDW 13.8 % (12.1-15.1) 09/01/23 03:07 Plt Count 272 10^3/cmm (157-399) D 09/01/23 03:07 MPV 12.6 fL (7.4-10.4) H 09/01/23 03:07 Neut % (Auto) 64.8 % 09/01/23 03:07 Lymph % (Auto) 14.0 % 09/01/23 03:07 [place] % (Auto) 10.0 % 09/01/23 03:07 Eos % (Auto) 8.9 % 09/01/23 03:07 Baso % (Auto) 1.2 % 09/01/23 03:07 Neut # (Auto) 8.01 10^3/uL (1.8-7.7) H 09/01/23 03:07 Lymph # (Auto) 1.7 10^3/uL (0.8-4.8) 09/01/23 03:07 [place] # (Auto) 1.2 10^3/uL (0.2-0.9) H 09/01/23 03:07 Eos # (Auto) 1.1 10^3/uL (0.0-0.8) H 09/01/23 03:07 Baso # (Auto) 0.2 10^3/uL (0.0-0.1) H 09/01/23 03:07 Nucleated RBC % (auto) 0 % 09/01/23 03:07 Nucleated RBCs # 0.0 /100WBC 09/01/23 03:07 Sodium 136 mmol/L (136-145) 09/01/23 08:55 Potassium 4.6 mmol/L (3.5-5.1) 09/01/23 08:55 Chloride 101 mmol/L (98-107) 09/01/23 08:55 Carbon Dioxide 23 mmol/L (22-29) 09/01/23 08:55 Anion Gap 16.6 (5-19) 09/01/23 08:55 BUN 35 mg/dL (6-20) H 09/01/23 08:55 Creatinine 5.3 mg/dL (0.7-1.2) H 09/01/23 08:55 GFR Calculation 11.3 mL/min (90-130) L 09/01/23 08:55 Glucose 153 mg/dL (65-115) H 09/01/23 08:55 POC Glucose 201 mg/dL (70-110) H 09/01/23 07:37 Calculated Osmolality 293 mOsm/kg (285-295) 09/01/23 08:55 Calcium 8.1 mg/dL (8.5-10.5) L 09/01/23 08:55 Total Bilirubin 0.4 mg/dL (0.15-1.2) 09/01/23 08:55 AST 13 U/L (0-40) 09/01/23 08:55 ALT < 5 U/L (0-41) 09/01/23 08:55 Alkaline Phosphatase 152 U/L (40-130) H 09/01/23 08:55 C-Reactive Protein 137.6 mg/L (0.0-4.9) H 08/28/23 16:05 Total Protein 6.4 g/dL (6.6-8.7) L 09/01/23 08:55 Albumin 2.3 g/dL (3.5-5.2) L 09/01/23 08:55 Globulin 4.1 g/dL (1.3-4.6) 09/01/23 08:55 Urine Color Yellow (Yellow) 08/31/23 18:12 Urine Appearance Clear (CLEAR) 08/31/23 18:12 Urine pH 6.5 (5-7) 08/31/23 18:12 Ur Specific Dawn 1.010 (1.005-1.030) 08/31/23 18:12 Urine Protein 3+ (Negative) H 08/31/23 18:12 Urine Glucose (UA) 2+ (Normal) H 08/31/23 18:12 Urine Ketones Negative (Negative) 08/31/23 18:12 Urine Blood Trace (Negative) H 08/31/23 18:12 Urine Nitrate Negative (Negative) 08/31/23 18:12 Urine Bilirubin Neg (Negative) 08/31/23 18:12 Urine Urobilinogen Neg mg/dL (Negative) 08/31/23 18:12 Ur Leukocyte Esterase Negative (Negative) 08/31/23 18:12 Urine RBC 0-4 /hpf (0-2) H 08/31/23 18:12 Urine WBC 0-4 /hpf (0-5) H 08/31/23 18:12 Ur Squamous Epith Cells None /hpf (0-5) 08/31/23 18:12 Amorphous Sediment Not Reportable 08/31/23 18:12 Urine Bacteria None /hpf (NONE) 08/31/23 18:12 Vitals Last Vital Signs Temp 97.4 F L 09/01/23 07:51 Pulse 60 09/01/23 08:00 Resp 16 09/01/23 08:00 BP 157/64 09/01/23 07:51 Pulse Ox 97 09/01/23 08:00 O2 Del Method Nasal Cannula 09/01/23 08:00 O2 Flow Rate 2 09/01/23 08:00 Discharge Plan Discharge Patient Disposition: Home Condition: Stable Prescriptions: New amoxicillin-pot clavulanate [Augmentin] 500-125 mg tablet 1 tab PO DAILY 14 Days Qty: 14 0RF Rx Instructions: Take after completing dialysis ciprofloxacin HCl [Cipro] 500 mg tablet 500 mg PO Q24H 14 Days Qty: 14 0RF Continued gabapentin 300 mg capsule 300 mg PO BEDTIME (DME) Dexcom G6 Sensor Device See Rx Instructions .Route Qty: 9 3RF Rx Instructions: As directed (DME) Dexcom G6 Manager Wound Care Misc See Rx Instructions .Route Qty: 1 0RF Rx Instructions: As directed (DME) Dexcom G6 Transmitter Device See Rx Instructions .Route Qty: 3 3RF Rx Instructions: As directed (DME) Podus Boot to the Left See Rx Instructions .Route .MEDSUPPLY Qty: 1 0RF Rx Instructions: As directed J P & O- Patient is in Hospital Cardiac Stepdown Unit room 105-1 fluticasone propion-salmeterol [Advair Diskus] 100-50 mcg/dose blister with device 1 inh inhalation BID Qty: 60 0RF atorvastatin 40 mg tablet 40 mg PO BEDTIME metoprolol tartrate 100 mg tablet 100 mg PO BID albuterol sulfate 90 mcg/actuation HFA aerosol inhaler 1 puff inhalation Q6H PRN (Reason: shortness of breath or wheezing) pregabalin [Lyrica] 200 mg capsule 200 mg PO TID famotidine 20 mg tablet 20 mg PO BID aspirin 81 mg Tablet,Chewable 81 mg PO QAM Qty: 60 0RF hydralazine 10 mg tablet 10 mg PO BID Qty: 60 0RF insulin lispro [Humalog KwikPen Insulin] 100 unit/mL insulin pen See Rx Instructions .ROUTE .COMPLEX Qty: 15 0RF Rx Instructions: Inject, subcut, 3 times daily, after meals, based on sliding scale provided amlodipine 10 mg tablet 10 mg PO DAILY furosemide [Lasix] 20 mg tablet 20 - 40 mg PO DAILY PRN (Reason: Edema) isosorbide mononitrate 30 mg tablet extended release 24 hr 30 mg PO QAM clopidogrel [Plavix] 75 mg tablet 75 mg PO QAM docusate sodium 100 mg capsule 100 mg PO BID PRN (Reason: Constipation) Levemir FlexPen 100 unit/mL (3 mL) insulin pen 20 unit SUBCUT BEDTIME omeprazole 40 mg capsule,delayed release(DR/EC) 40 mg PO DAILY Vitamin D2 1,250 mcg (50,000 unit) capsule See Rx Instructions .ROUTE .COMPLEX Rx Instructions: 1,250 mcg orally every 7 days RenaPlex-D 800 mcg-12.5 mg -2,000 unit tablet 1 tab PO DAILY Discharge Orders: Discharge Order (Routine); Ordered 09/01/23 Ordered By: Kelsie Cedillo Referrals: Vidhi Gillette FNP [Primary Care Provider] - 09/17/23 2:00 pm [facility], [Staff Physician] - 09/04/23 Discharge Diet: Usual diet Discharge Activity: Resume usual activity Patient Instructions: Opioid Safety Discharge Attestations Time Spent in Discharge Care*: greater than 30 min Status at Discharge: Cognitive status at discharge: cognitively intact , Behavioral status at discharge: cooperative , Quality Metrics Clinical Quality Measures [ No reported AMI, CVA or VTE this stay] Coding Level of Care Code Acute Code for Chg Fwd Diagnoses ESRD (end stage renal disease) on dialysis N18.6; Z99.2 Cellulitis of left foot L03.116 Chronic multifocal osteomyelitis of left foot M86.372 Osteomyelitis type: chronic multifocal
[2023-09-01 11:31] LABS: Glucose Point of Care 301 mg/dL (70-110)
[2023-09-01] MEDS: insulin lispro 100 unit/1 mL SUBCUT (11:43)
[2023-09-01 13:16] LABS: Glucose Point of Care 192 mg/dL (70-110)
--- NOTE | 2023-09-01 14:03 | P.PN_ITS ---
Subjective 2 Subjective: doing well Medications: Reviewed: Yes Vitals/I&O/Wt Last Vital Signs Temp 97.5 F L 09/01/23 13:23 Pulse 63 09/01/23 13:23 Resp 18 09/01/23 13:23 BP 133/80 09/01/23 13:23 Pulse Ox 98 09/01/23 13:23 O2 Del Method Nasal Cannula 09/01/23 11:55 O2 Flow Rate 2 09/01/23 08:00 08/31/23 09/01/23 09/01/23 22:59 06:59 14:59 Intake Total 290 / 580 50 / 630 410 / 410 Output Total 600 / 600 200 / 200 Balance -310 / -20 50 / 30 210 / 210 Weight last 48 hrs Weight 115.468 kg Weight 121.563 kg Weight 120.882 kg Weight 120.826 kg Physical Exam 2 Narrative: awake alert, no acute distress S1-S2 regular rate and rhythm per report Lungs clear per report Lower extremity edema Data 09/01/23 03:07 09/01/23 08:55 Micro: Microbiology 08/28/23 17:54 Wound Culture - Preliminary Foot Left Gram Negative Rods A&P Assessment and plan (1) ESRD (end stage renal disease) on dialysis: Plan 1. End-stage renal disease: On peritoneal dialysis, patient does manual exchanges at home recently has using 4.25% dextrose solution. Will do 3 exchanges while in the hospital- 2.5% x 2 exchanges and 4.25% solution, dwell for 4 hours. -2 g sodium restriction and 1500 mill fluid restriction 2. Left foot nonhealing ulcer and osteomyelitis: On antibiotics, seen by podiatry, 3. Hyperkalemia: Low K diet and started HD 4. Metabolic acidosis: Will add Bicitra 5. Anemia: Will order BREANNA Patient evaluated using audiovisual cart. Time spent 20 minutes. Attestations 2 Medical Necessity Statement*: per medicien team Coding Level of Care Code Acute Code for Chg Fwd Diagnoses ESRD (end stage renal disease) on dialysis N18.6; Z99.2
== END 2023-09-01 13:24 | disposition home or self-care (01) | DRG 602 ==
LOC: ER 15:59 → MEDSURG 18:56
PROVIDERS: Hospitalist; Admitting Provider Student in an Organized Health Care Education/Training Program; Emergency Provider Family Medicine; PCP Nurse Practitioner Family; Visit Provider Student in an Organized Health Care Education/Training Program
DX: L03.116 Cellulitis of left lower limb (principal); N18.6 End stage renal disease; N17.9 Acute kidney failure, unspecified; L97.429 Non-pressure chronic ulcer of left heel and midfoot with unspecified severity; I13.2 Hypertensive heart and chronic kidney disease with heart failure and with stage 5 chronic kidney disease, or end stage renal disease; E87.20 Acidosis, unspecified; M86.672 Other chronic osteomyelitis, left ankle and foot; Z86.16 Personal history of COVID-19; I25.2 Old myocardial infarction; E11.22 Type 2 diabetes mellitus with diabetic chronic kidney disease; Z99.2 Dependence on renal dialysis; Z79.4 Long term (current) use of insulin; E11.621 Type 2 diabetes mellitus with foot ulcer; E11.51 Type 2 diabetes mellitus with diabetic peripheral angiopathy without gangrene; I50.9 Heart failure, unspecified; E11.42 Type 2 diabetes mellitus with diabetic polyneuropathy; E78.5 Hyperlipidemia, unspecified; I25.10 Atherosclerotic heart disease of native coronary artery without angina pectoris; Z87.891 Personal history of nicotine dependence; E87.5 Hyperkalemia; E11.69 Type 2 diabetes mellitus with other specified complication; D63.1 Anemia in chronic kidney disease
CPT/HCPCS: 36415; 36416; 73630; 80048; 80053; 81001; 82962; 85025; 86140; 87040; 87070; 87077; 87186; 94640; 96365; 96372; 96375; 99213; 99285; J0610; J1644; J1815; J1940; J2543; J3370; J3490; J7613; Q3014; Q4081

== ENCOUNTER → 2023-09-04 14:53 | Outpatient (BNVA) | payer MEDICARE, MEDICAID, SELFPAY | PROVIDERS: PCP Nurse Practitioner Family; Visit Provider Thoracic Surgery (Cardiothoracic Vascular Surgery) | DX: E11.52 Type 2 diabetes mellitus with diabetic peripheral angiopathy with gangrene (principal); E11.622 Type 2 diabetes mellitus with other skin ulcer; L97.822 Non-pressure chronic ulcer of other part of left lower leg with fat layer exposed; L89.623 Pressure ulcer of left heel, stage 3 | CPT/HCPCS: 11042; 11045 ==

== ENCOUNTER → 2023-09-11 16:15 | Outpatient (BNVA) | payer MEDICARE, MEDICAID, SELFPAY | PROVIDERS: PCP Nurse Practitioner Family; Visit Provider Thoracic Surgery (Cardiothoracic Vascular Surgery) | DX: E11.52 Type 2 diabetes mellitus with diabetic peripheral angiopathy with gangrene (principal); E11.621 Type 2 diabetes mellitus with foot ulcer; L89.624 Pressure ulcer of left heel, stage 4; Z09 Encounter for follow-up examination after completed treatment for conditions other than malignant neoplasm | CPT/HCPCS: 11044; 11047; A6251 ==

== ENCOUNTER → 2023-09-18 13:48 | Outpatient (BNVA) | payer MEDICARE, MEDICAID, SELFPAY | PROVIDERS: PCP Nurse Practitioner Family; Visit Provider Thoracic Surgery (Cardiothoracic Vascular Surgery) | DX: E11.52 Type 2 diabetes mellitus with diabetic peripheral angiopathy with gangrene (principal); E11.621 Type 2 diabetes mellitus with foot ulcer; L89.623 Pressure ulcer of left heel, stage 3 | CPT/HCPCS: 11042; 11045 ==

== ENCOUNTER → 2023-09-25 09:09 | Outpatient (BNVA) | payer MEDICARE, MEDICAID, SELFPAY | PROVIDERS: PCP Nurse Practitioner Family; Visit Provider Nurse Practitioner Family | DX: E11.52 Type 2 diabetes mellitus with diabetic peripheral angiopathy with gangrene (principal); E11.621 Type 2 diabetes mellitus with foot ulcer; L89.623 Pressure ulcer of left heel, stage 3 | CPT/HCPCS: 11042; 11045; A6210; A6251 ==

== ENCOUNTER → 2023-10-02 09:10 | Outpatient (BNVA) | payer MEDICARE, MEDICAID, SELFPAY | PROVIDERS: PCP Nurse Practitioner Family; Visit Provider Thoracic Surgery (Cardiothoracic Vascular Surgery) | DX: E11.52 Type 2 diabetes mellitus with diabetic peripheral angiopathy with gangrene (principal); L89.623 Pressure ulcer of left heel, stage 3; E11.621 Type 2 diabetes mellitus with foot ulcer | CPT/HCPCS: 11042; 11045; A6210; A6252 ==

== ENCOUNTER → 2023-10-09 09:05 | Outpatient (BNVA) | payer MEDICARE, MEDICAID, SELFPAY | PROVIDERS: PCP Nurse Practitioner Family; Visit Provider Thoracic Surgery (Cardiothoracic Vascular Surgery) | DX: E11.52 Type 2 diabetes mellitus with diabetic peripheral angiopathy with gangrene (principal); E11.621 Type 2 diabetes mellitus with foot ulcer; L89.623 Pressure ulcer of left heel, stage 3 | CPT/HCPCS: 11042; 11045; A6251 ==

== ENCOUNTER → 2023-10-16 13:09 | Outpatient (BNVA) | payer MEDICARE, MEDICAID, SELFPAY | PROVIDERS: PCP Nurse Practitioner Family; Visit Provider Thoracic Surgery (Cardiothoracic Vascular Surgery) | DX: E11.52 Type 2 diabetes mellitus with diabetic peripheral angiopathy with gangrene (principal); E11.621 Type 2 diabetes mellitus with foot ulcer; L97.422 Non-pressure chronic ulcer of left heel and midfoot with fat layer exposed | CPT/HCPCS: 11042; 11045; A6251 ==

== ENCOUNTER → 2023-10-23 10:19 | Outpatient (BNVA) | payer MEDICARE, MEDICAID, SELFPAY | PROVIDERS: PCP Nurse Practitioner Family; Visit Provider Thoracic Surgery (Cardiothoracic Vascular Surgery) | DX: E11.52 Type 2 diabetes mellitus with diabetic peripheral angiopathy with gangrene (principal); E11.621 Type 2 diabetes mellitus with foot ulcer; L89.623 Pressure ulcer of left heel, stage 3 | CPT/HCPCS: 11042; 11045; A6251 ==

== ENCOUNTER → 2023-10-30 13:01 | Outpatient (BNVA) | payer MEDICARE, MEDICAID, SELFPAY | PROVIDERS: PCP Nurse Practitioner Family; Visit Provider Thoracic Surgery (Cardiothoracic Vascular Surgery) | DX: E11.52 Type 2 diabetes mellitus with diabetic peripheral angiopathy with gangrene (principal); E11.621 Type 2 diabetes mellitus with foot ulcer; L89.623 Pressure ulcer of left heel, stage 3 | CPT/HCPCS: 11042; 11045; A6210; A6251 ==

== ENCOUNTER → 2023-11-06 13:53 | Outpatient (BNVA) | payer MEDICARE, MEDICAID, SELFPAY | PROVIDERS: PCP Nurse Practitioner Family; Visit Provider Thoracic Surgery (Cardiothoracic Vascular Surgery) | DX: E11.52 Type 2 diabetes mellitus with diabetic peripheral angiopathy with gangrene (principal); E11.621 Type 2 diabetes mellitus with foot ulcer; L89.623 Pressure ulcer of left heel, stage 3 | CPT/HCPCS: 97597; 97598; A6251 ==

== ENCOUNTER 2023-12-04 11:35 | Inpatient (IN) | payer MEDICARE, MEDICAID, SELFPAY ==
[2023-12-04] VITALS (31 sets, daily range): BP systolic 91–126; BP diastolic 42–70; PULSE 47–60; RESP 8–19; TEMP 36.6; O2SAT 95–98; BMI 39.9
--- NOTE | 2023-12-04 11:36 | XRR_ITS ---
PROCEDURE INFORMATION: Exam: XR Chest Exam date and time: 12/04/2023 12:23 PM Age: 58 years old Clinical indication: Cough and dyspnea; Patient HX: PT found with decreased loc; Only alert to verbal commands; Additional info: Dyspnea/cough TECHNIQUE: Imaging protocol: Radiologic exam of the chest. Views: 1 view. COMPARISON: CR XR chest 1V portable [id number] 01/18/2023 1:26 PM FINDINGS: Lungs: Central pulmonary vessels are enlarged. There is ill-defined central lower lung predominant ground-glass opacity. Pleural spaces: The right lateral costophrenic sulcus is blunted. No pneumothorax. Heart/Mediastinum: The cardiac silhouette is partially obscured but probably enlarged. Diaphragm: There is mild asymmetric elevation of the left hemidiaphragm. Bones/joints: Bones are unremarkable. XR/XR chest 1V portable [id number] IMPRESSION: 1. Probable chronic or recurrent pulmonary edema, similar to findings on 01/18/2023. Infection cannot be excluded. 2. Right pleural effusion.
--- NOTE | 2023-12-04 11:47 | ECG_ITS ---
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 Measurements Intervals [place] Rate: 47 P: 15 SD: 188 QRS: 148 QRSD: 142 T: 32 QT: 497 QTc: 440 Interpretive Statements SINUS BRADYCARDIA RIGHT AXIS DEVIATION [QRS AXIS > 100] RIGHT BUNDLE BRANCH BLOCK [120+ ms QRS DURATION, UPRIGHT V1, 40+ ms S IN I/aVL/V4/V5/V6] Compared to ECG 01/01/2023 08:36:41 Right-axis deviation now present Sinus rhythm no longer present Left posterior fascicular block no longer present Electronically Signed On 12-04-2023 14:32:53 AREA COUNSELOR by Tal Mayorga M.D. [id number]
--- NOTE | 2023-12-04 11:53 | PC.NURSE ---
blood glucose 154 via fingerstick
[2023-12-04 11:55] LABS: Glucose Point of Care 154 mg/dL (70-110)
[2023-12-04 12:37] LABS: Basophils % 0.4 %; Eosinophils # 0.2 10^3/uL (0.0-0.8); Eosinophils % 1.6 %; Hematocrit 42.1 % (37-53); Lymphocytes # 0.5 10^3/uL (0.8-4.8); Mean Corpuscular HGB Conc 31.4 g/dL (30-55); Mean Corpuscular Hemoglobin 28.3 pg (27-33); Mean Corpuscular Volume 90.1 fl (82-101); Mean Platelet Volume 13.5 fL (7.4-10.4); Monocytes # 0.4 10^3/uL (0.2-0.9); Monocytes % 3.4 %; Neutrophils # 9.41 10^3/uL (1.8-7.7); Neutrophils % 88.4 %; Nucleated Red Blood Cells % 0 %; Platelet Count 195 10^3/cmm (157-399); Red Blood Count 4.67 10^6/uL (3.85-5.65); White Blood Count 10.64 10^3/uL (3.29-11.43)
[2023-12-04 12:49] LABS: Slide Review Slide Review Perform
[2023-12-04 12:59] LABS: Alanine Aminotransferase 11 U/L (0-41); Albumin Level 3.1 g/dL (3.5-5.2); Alkaline Phosphatase 197 U/L (40-130); Anion Gap 19.4 (5-19); Aspartate Amino Transferase 20 U/L (0-40); Blood Urea Nitrogen 75 mg/dL (6-20); Calcium 8.1 mg/dL (8.5-10.5); Carbon Dioxide 19 mmol/L (22-29); Chloride 100 mmol/L (98-107); Globulin 4.3 g/dL (1.3-4.6); Glomerular Filtration Rate 7.9 mL/min (90-130); Glucose 143 mg/dL (65-115); Osmolality Calculated 301 mOsm/kg (285-295); Potassium 5.4 mmol/L (3.5-5.1); Sodium 133 mmol/L (136-145); Total Bilirubin 0.4 mg/dL (0.15-1.2); Total Protein 7.4 g/dL (6.6-8.7)
--- NOTE | 2023-12-04 13:28 | ED_ITS ---
HPI - General Adult 2 General: Chief complaint: General Medical Stated complaint: SOB Time Seen by Provider: 12/04/23 11:36 Source: patient Mode of arrival: ambulatory History of Present Illness: 58-year-old male presents to the emergen cy room via EMS. He missed a wound care appointment this morning he was altered on arriva of EMS with a blood glucose of 36 g/dL gave him D10 and his blood sugar improved on arrival here he is up to the 150s. He was given Decadron and terbutaline as well. He is significantly bradycardic on arrival here. He states he has been very weak and dizzy with any activity he gets very lightheaded and short of breath. He has a history of diabetes mellitus poorly controlled chronic diabetic foot ulcers congestive heart failure and end-stage renal disease currently getting dialysis. Onset (ago): minute(s) Location: head Severity: mild Pain Consistency: constant Relieving factors: none Exacerbating factors: none Associated symptoms: Reports malaise; Deny chest pain, confusion, cough, diaphoresis, decreased appetite, dyspnea, fevers/chills, headache(s), nausea, rash, palpitations, seizures, short of breath, syncope, vomiting or weakness Review of Systems 2 Const: Reports: malaise; Denies: diaphoresis Card: Denies: chest pain, palpitations or syncope Resp: Denies: dyspnea GI: Denies: nausea or vomiting Skin/Breast: Denies: rash Neuro: Denies: headache(s) or confusion PFSH ED 2 PFSH: Medical History COVID Type 2 diabetes mellitus with foot ulcer NSTEMI (non-ST elevated myocardial infarction) Chronic osteomyelitis Aspiration pneumonia CKD (chronic kidney disease) PVD (peripheral vascular disease) Chronic ulcer of right foot with fat layer exposed 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 Diabetic peripheral neuropathy associated with type 2 diabetes mellitus Elevated troponin Acute diastolic heart failure Chronic kidney disease Hypoxia Hyperkalemia Congestive heart failure Type 2 diabetes mellitus Diabetic ulcer of foot associated with diabetes mellitus due to underlying condition, with fat layer exposed Hyperkalemia Acute kidney injury superimposed on CKD Chronic osteomyelitis 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 Uncontrolled type 2 diabetes with neuropathy Hyperlipidemia Onychomycosis of nail of digit of hand Neuropathy Diabetes Surgical History H/O circumcision H/O colonoscopy 7 yrs ago Status post debridement of ulcer of heel Family History Brother Cancer Sister Lung disease Mother Heart failure Father Chronic kidney failure Denies family history of Anesthesia complication Bleeding disorder Social History Smoking and tobacco/nicotine status: former use of tobacco/nicotine Second hand smoke exposure: No Alcohol intake: never Substance/Drug Use: never Adopted: No Lives independently: Yes Marital status: Single Current occupational status: disabled Course 2 Vital Signs: Vital signs: Vital Signs Temperature 97.8 F 12/04/23 11:39 Pulse Rate 48 L 12/04/23 15:59 Respiratory Rate 13 12/04/23 15:59 Blood Pressure 116/63 12/04/23 15:59 Pulse Oximetry 97 12/04/23 15:59 Oxygen Delivery Me thod Room Air 12/04/23 14:35 Oxygen Flow Rate 2 12/04/23 11:39 MDM - General Adult Medical Decision Making Patient was initially hypoglycemic in the field since he is arrived here his blood sugars been sustained. He is significantly bradycardic he also has hyperkalemia he has been routinely doing his peritoneal dialysis but does not look like it has been adequate. He was supposed to see wound care this morning has not had a fever recently has been actively treated for the chronic leg wounds. Discussed with hospitalist will admit Medical Records I reviewed the patient's medical records. Lab Data I reviewed the patient's lab results. 12/04/23 12:20 12/04/23 12:20 Radiology Impressions Chest X-Ray 12/04/23 11:36 IMPRESSION: 1. Probable chronic or recurrent pulmonary edema, similar to findings on 01/18/2023. Infection cannot be excluded. 2. Right pleural effusion. Laboratory Results WBC 10.64 10^3/uL (3.29-11.43) 12/04/23 12:20 RBC 4.67 10^6/uL (3.85-5.65) 12/04/23 12:20 Hgb 13.20 g/dL (11.27-16.99) 12/04/23 12:20 Hct 42.1 % (37-53) 12/04/23 12:20 MCV 90.1 fl (82-101) 12/04/23 12:20 MCH 28.3 pg (27-33) 12/04/23 12:20 MCHC 31.4 g/dL (30-55) 12/04/23 12:20 RDW 17.0 % (12.1-15.1) H 12/04/23 12:20 Plt Count 195 10^3/cmm (157-399) 12/04/23 12:20 MPV 13.5 fL (7.4-10.4) H 12/04/23 12:20 Neut % (Auto) 88.4 % 12/04/23 12:20 Lymph % (Auto) 5.0 % 12/04/23 12:20 [place] % (Auto) 3.4 % 12/04/23 12:20 Eos % (Auto) 1.6 % 12/04/23 12:20 Baso % (Auto) 0.4 % 12/04/23 12:20 Neut # (Auto) 9.41 10^3/uL (1.8-7.7) H 12/04/23 12:20 Lymph # (Auto) 0.5 10^3/uL (0.8-4.8) L 12/04/23 12:20 [place] # (Auto) 0.4 10^3/uL (0.2-0.9) 12/04/23 12:20 Eos # (Auto) 0.2 10^3/uL (0.0-0.8) 12/04/23 12:20 Baso # (Auto) 0.0 10^3/uL (0.0-0.1) 12/04/23 12:20 Nucleated RBC % (auto) 0 % 12/04/23 12:20 Nucleated RBCs # 0.0 /100WBC 12/04/23 12:20 ESR 89 mm/hr (0-10) H 12/04/23 12:20 Sodium 133 mmol/L (136-145) L 12/04/23 12:20 Potassium 5.4 mmol/L (3.5-5.1) H 12/04/23 12:20 Chloride 100 mmol/L (98-107) 12/04/23 12:20 Carbon Dioxide 19 mmol/L (22-29) L 12/04/23 12:20 Anion Gap 19.4 (5-19) H 12/04/23 12:20 BUN 75 mg/dL (6-20) H 12/04/23 12:20 Creatinine 7.2 mg/dL (0.7-1.2) H* 12/04/23 12:20 GFR Calculation 7.9 mL/min (90-130) L 12/04/23 12:20 Glucose 143 mg/dL (65-115) H 12/04/23 12:20 POC Glucose 133 mg/dL (70-110) H 12/04/23 13:55 Calculated Osmolality 301 mOsm/kg (285-295) H 12/04/23 12:20 Lactic Acid 0.6 mmol/L (0.5-2.2) 12/04/23 12:20 Calcium 8.1 mg/dL (8.5-10.5) L 12/04/23 12:20 Total Bilirubin 0.4 mg/dL (0.15-1.2) 12/04/23 12:20 AST 20 U/L (0-40) 12/04/23 12:20 ALT 11 U/L (0-41) 12/04/23 12:20 Alkaline Phosphatase 197 U/L (40-130) H 12/04/23 12:20 Troponin T Baseline 135 ng/L (0-15) H* 12/04/23 12:20 C-Reactive Protein 40.1 mg/L (0.0-4.9) H 12/04/23 12:20 NT-Pro-B Natriuret Pep 70578 pg/mL (0-125) H 12/04/23 12:20 Total Protein 7.4 g/dL (6.6-8.7) 12/04/23 12:20 Albumin 3.1 g/dL (3.5-5.2) L 12/04/23 12:20 Globulin 4.3 g/dL (1.3-4.6) 12/04/23 12:20 Procalcitonin 0.14 ng/mL (0-0.5) 12/04/23 12:20 TSH 3.50 uIU/mL (0.27-4.20) 12/04/23 12:20 All radiology interpretation(s) finalized by discharge Discharge Plan Discharge Patient Disposition: Admitted As Inpatient Admit Provider: Luciano Mariscal Clinical Impression: Bradycardia, Hypoglycemia, Hyperkalemia, ESRD on peritoneal dialysis, Type 2 diabetes mellitus, Chronic ulcer of right foot with fat layer exposed Condition: Stable Coding Level of Care Code ED Welder Apprentice Combination for Blaise Beckett
[2023-12-04 13:58] LABS: Glucose Point of Care 133 mg/dL (70-110)
[2023-12-04 14:09] LABS: Erythrocyte Sedimentation Rate 89 mm/hr (0-10)
[2023-12-04 14:19] LABS: Troponin(5th) Baseline 135 ng/L (0-15)
[2023-12-04 14:23] LABS: Procalcitonin 0.14 ng/mL (0-0.5)
--- NOTE | 2023-12-04 14:26 | USCV_ITS ---
Arias Robisonbam Age: 58 Gender: M : 1965 Exam Date: 12/04/2023 13:50 Ordering Phys: Luciano Mariscal MD Technologist: Exam Location: [facility] – [place] Indication: syncope BP: 118 / 63 HR: 0 Rhythm: Sinus Technical Quality: Adequate MEASUREMENTS (Male / Female) Normal Values 2D ECHO LV Diastolic Diameter PLAX 4.5 cm 4.2 - 5.9 / 3.9 - 5.3 cm IVS Diastolic Thickness 1.7 cm 0.6 - 1.0 / 0.6 - 0.9 cm IVS Systolic Thickness 1.6 cm LVPW Diastolic Thickness 1.2 cm 0.6 - 1.0 / 0.6 - 0.9 cm LVPW Systolic Thickness 1.2 cm LVOT Diameter 2.0 cm LV Ejection Fraction 2D Teich 48.3 % LV Ejection Fraction MOD 2C 51.4 % LV Ejection Fraction 2C AL 51.5 % LA Diameter 4.8 cm RA Systolic Volume 4C AL 48.3 ml RA Systolic Volume 4C MOD 44.0 ml Aorta at Sinotubular Diameter 2.4 cm DOPPLER AV Peak Velocity 3.0 cm/s LVOT Peak Velocity 81.0 cm/s AV Area Cont Eq vti 2.0 cm squared AV Area Cont Eq pk 85.7 cm squared MV Peak Velocity 81.0 cm/s MV Area PHT 3.4 cm squared Mitral E to A Ratio 1.8 TR Peak Velocity 161.0 cm/s TR Peak Gradient 10.4 mmHg TV Peak E Velocity 55.0 cm/s Right Atrial Pressure 3.0 mmHg Pulmonary Artery Systolic Pressu 13.4 mmHg PV Peak Velocity 79.0 cm/s FINDINGS Left Ventricle Left ventricle is normal in size. LV systolic function is borderline normal with EF of 50 to 55%. No significant regional wall motion abnormalities are seen. Right Ventricle Normal in size and function Right Atrium Normal in size Left Atrium Dilated Mitral Valve Structurally normal mitral valve. Mild mitral regurgitation. Aortic Valve Grossly normal. No significant stenosis or regurgitation. Tricuspid Valve Mild tricuspid regurgitation. Insufficient TR jet to calculate RVSP. Pulmonic Valve Not well visualized Pericardium Normal Aorta Normal in size IVC Appears to be normal CONCLUSIONS LV systolic function is normal with EF of 50-55%. Dilated Mild mitral regurgitation Mild tricuspid regurgitation Compared to prior echocardiogram from 2022, no significant changes are seen Davin Diaz MD (Electronically Signed) Final Date: 04 December 2023 15:51 S
--- NOTE | 2023-12-04 14:26 | USCV_ITS ---
Tim Robison Age: 58 Gender: M : 1965 Exam Date: 12/04/2023 14:12 Ordering Phys: Luciano Mariscal MD Technologist: Exam Location: [facility] [place] Indication: syncope Risk Factors: Previous Vascular Surgery: Right Brachial BP: / Left Brachial BP: / Right Left Velocity (cm/s) Spectral Plaque Velocity (cm/s) Spectral Plaque Syst/Diast Broadening Syst/Diast Broadening 60.80/ 11.50 Prox CCA 53.30 / 5.30 54.30/ 11.50 Mid CCA 57.60 / 5.30 41.30/ 7.60 Distal CCA 54.30 / 7.50 44.00/ 8.00 Prox ICA 63.00 / 16.20 48.50/ 12.40 Mid ICA 67.40 / 15.10 50.20/ 13.00 Distal ICA 48.90 / 15.10 64.70 ECA 91.30 1.40 ICA/CCA 1.20 Antegrade Vertebral Antegrade 30.40/ 9.70 cm/s 48.90/ 10.80 cm/s Tri Subclavian Tri CONCLUSIONS Right ICA stenosis <50%. Left ICA stenosis <50%. Intimal thickening in the common carotid arteries and internal carotid arteries bilaterally. Normal antegrade Doppler flow noted in the right vertebral artery. Normal antegrade Doppler flow noted in the left vertebral artery. Desmond Castillo MD (Electronically Signed) Final Date: 04 December 2023 16:58 S
--- NOTE | 2023-12-04 14:29 | P.HP_ITS ---
Providers/Chief Complaint 2 Admitting Physician: Luciano Mariscal MD Primary Care Provider: SERAFIN Reza Chief Complaint: SOB History of Present Illness Tim Robison is a 58 year old male with a past medical history of end-stage renal disease on peritoneal dialysis, insulin-dependent type 2 diabetes mellitus, history of left foot diabetic ulcer, history of chronic osteomyelitis, CKD, peripheral vascular disease, diastolic CHF, hyperlipidemia, neuropathy, who presents to [facility] due to syncopal episodes, bradycardia hypoglycemia. Currently patient is alert oriented x 3, following all commands, he tells me that for the last few days, he has had recurrent syncopal episodes, not associated with position, no strokelike symptoms no facial droop no slurring of words, no seizure-like episodes, patient's daughter at bedside has witnessed them, she tells me that it is always if he falls asleep, denies any preceding chest pain or palpitations. Patient tells me that he was going to wound care this morning,, however he missed this point as he passed out, EMS was called out to his home by family members, blood sugar on arrival was 36 he was found to have sinus bradycardia, was given D50, Decadron, his blood sugar has improved to 150s, he had reported feeling weak and dizzy and lightheaded and short of breath. Review of Systems 2 Const: Denies: fever(s) or chills Card: Denies: chest pain or palpitations Resp: Denies: dyspnea GI: Denies: abdominal pain : Denies: flank pain Skin/Breast: Reports: rash Neuro: Denies: headache(s) Medications/Allergies Home Medications Medication Instructions Recorded Confirmed Last Taken Type gabapentin 300 mg capsule 300 mg PO BEDTIME 10/11/20 12/04/23 12/03/23 History blood-glucose meter,continuous #1 ea 04/23/22 12/04/23 01/30/23 Rx (Dexcom G6 Accident Report Clerk) blood-glucose sensor (Dexcom G6 #9 ea 04/23/22 12/04/23 01/30/23 Rx Sensor device) blood-glucose transmitter (Dexcom #3 ea 04/23/22 12/04/23 01/30/23 Rx G6 Transmitter device) albuterol sulfate 90 mcg/actuation 1 puff inhalation Q6H PRN 11/29/22 12/04/23 01/30/23 History aerosol inhaler shortness of breath or wheezing atorvastatin 40 mg tablet 40 mg PO BEDTIME 11/29/22 12/04/23 12/03/23 History famotidine 20 mg tablet 20 mg PO BID 11/29/22 12/04/23 12/04/23 History metoprolol tartrate 100 mg tablet 100 mg PO BID 11/29/22 12/04/23 12/04/23 History pregabalin 200 mg capsule (Lyrica) 200 mg PO TID 11/29/22 12/04/23 12/04/23 History Podus Boot to the Left #1 ea 12/03/22 12/04/23 01/30/23 Rx aspirin 81 mg chewable tablet 81 mg PO QAM #60 tabs 12/06/22 12/04/23 12/04/23 Rx insulin lispro 100 unit/mL See Rx Instructions .Route 01/07/23 12/04/23 12/04/23 Rx subcutaneous pen (Humalog KwikPen .COMPLEX #15 mL (U-100) Insulin) clopidogrel 75 mg tablet (Plavix) 75 mg PO QAM 01/18/23 12/04/23 12/04/23 History docusate sodium 100 mg capsule 100 mg PO BID PRN Constipation 01/18/23 12/04/23 01/30/23 History isosorbide mononitrate 30 mg 30 mg PO QAM 01/18/23 12/04/23 12/04/23 History tablet,extended release 24 hr amlodipine 10 mg tablet 10 mg PO QAM 01/30/23 12/04/23 12/04/23 History furosemide 20 mg tablet (Lasix) 20 - 40 mg PO DAILY PRN Edema 01/30/23 12/04/23 Unknown History ergocalciferol (vitamin D2) 1,250 See Rx Instructions .Route .COMPLEX 08/29/23 12/04/23 12/01/23 History mcg (50,000 unit) capsule (Vitamin D2) insulin detemir U-100 100 unit/mL 52 unit SUBCUT BEDTIME 08/29/23 12/04/23 12/03/23 History (3 mL) subcutaneous pen (Levemir FlexPen) omeprazole 40 mg capsule,delayed 40 mg PO DAILY 08/29/23 12/04/23 12/04/23 History release vit B,C-folic ac 800 mcg-zinc 12.5 1 tab PO DAILY 08/29/23 12/04/23 12/04/23 History mg-selen-D3 2,000 unit-vit E tablet (RenaPlex-D) fluticasone 100 mcg-salmeterol 50 1 inh inhalation BID PRN Shortness 12/04/23 12/04/23 Unknown History mcg/dose blistr powdr for Of Breath inhalation (Advair Diskus) hydralazine 10 mg tablet 10 mg PO BID PRN unknown 12/04/23 12/04/23 Unknown History Allergies Allergy/AdvReac Type Severity Reaction Status Date / Time Iodinated Contrast Media Allergy ALGY-Hives Verified 08/12/23 08:46 PFSH Acute 2 PFSH: Medical History COVID Type 2 diabetes mellitus with foot ulcer NSTEMI (non-ST elevated myocardial infarction) Chronic osteomyelitis Aspiration pneumonia CKD (chronic kidney disease) PVD (peripheral vascular disease) Chronic ulcer of right foot with fat layer exposed 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 Diabetic peripheral neuropathy associated with type 2 diabetes mellitus Elevated troponin Acute diastolic heart failure Chronic kidney disease Hypoxia Hyperkalemia Congestive heart failure Type 2 diabetes mellitus Diabetic ulcer of foot associated with diabetes mellitus due to underlying condition, with fat layer exposed Hyperkalemia Acute kidney injury superimposed on CKD Chronic osteomyelitis 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 Uncontrolled type 2 diabetes with neuropathy Hyperlipidemia Onychomycosis of nail of digit of hand Neuropathy Diabetes Surgical History H/O circumcision H/O colonoscopy 7 yrs ago Status post debridement of ulcer of heel Family History Brother Cancer Sister Lung disease Mother Heart failure Father Chronic kidney failure Denies family history of Anesthesia complication Bleeding disorder Social History Smoking and tobacco/nicotine status: former use of tobacco/nicotine Second hand smoke exposure: No Alcohol intake: never Substance/Drug Use: never Adopted: No Lives independently: Yes Marital status: Single Current occupational status: disabled Vitals/I&O/Wt Last Vital Signs Temp 97.8 F 12/04/23 11:39 Pulse 47 L 12/04/23 11:39 Resp 18 12/04/23 11:39 BP 113/57 12/04/23 11:39 Pulse Ox 97 12/04/23 11:39 O2 Del Method Nasal Cannula 12/04/23 11:39 O2 Flow Rate 2 12/04/23 11:39 Physical Exam 2 Const: COMMON NORMALS: no acute distress and patient oriented x3 HENMT: COMMON NORMALS: normocephalic HEAD & SCALP: normocephalic Eye: COMMON NORMALS: Equal, round and reactive pupils present and EOMs intact bilaterally Neck/C-Spine: COMMON NORMALS: no JVD Lymph: LYMPHATIC: no lymphadenopathy noted Resp: COMMON NORMALS: normal respiratory effort, No retractions, No use of accessory muscles and clear to auscultation bilaterally AUSCULTATION: clear to auscultation bilaterally Cardio: COMMON NORMALS: regular rate, regular rhythm, S1 normal heart sound present and S2 normal heart sound present RHYTHM: regular rhythm HEART SOUNDS: S1 normal heart sound present and S2 normal heart sound present GI: COMMON NORMALS: Normal to inspection, nondistended, normoactive bowel sounds present, Soft to palpation and non-tender Extremity: COMMON NORMALS: no calf tenderness and no pedal edema Neuro: COMMON NORMALS: patient oriented x3, CN's II-XII intact bilaterally, moves all extremities and no focal motor deficits Psych: COMMON NORMALS: mental status grossly normal Skin: OTHER: Left heel diabetic ulcer measuring 3 x 3 cm, down to level of bone, with foul- smelling, surrounding erythema Data 12/04/23 12:20 12/04/23 12:20 A&P Assessment and plan (1) Syncope: (2) Diabetic foot ulcer: (3) Cellulitis of left foot: (4) ESRD (end stage renal disease) on dialysis: (5) CKD (chronic kidney disease): Qualifiers: Chronic kidney disease stage: stage 5, not on chronic dialysis Qualified Code(s): N18.5 - Chronic kidney disease, stage 5 (6) Type 2 diabetes mellitus: Qualifiers: Diabetes mellitus complication status: with other specified complication Diabetes mellitus [facility] insulin use: with supervisor intermediates use Qualified Code(s): E11.69 - Type 2 diabetes mellitus with other specified complication; Z79.4 - terminal block assembler (current) use of insulin (7) Hypoglycemia: (8) Bradycardia: Plan Syncope -Serial EKGs, serial troponins, telemetry monitoring -CT head -Cardiac echo -Telemetry monitoring -Carotid artery ultrasound -Orthostatic vitals Bradycardia -Serial EKGs, serial troponins, telemetry monitoring -Potentially related to beta-sharif, hold -Potential related to hyperglycemia, monitor Hypoglycemia -Etiology unclear potentially related to Levemir, sliding scale ? Low-dose sliding scale Left foot diabetic ulcer -ESR, CRP, Pro-Rigo, blood cultures -CT left lower extremity/foot ? Continue vancomycin, meropenem -Consult podiatry End-stage renal disease continue peritoneal dialysis, consult nephrology NSTEMI, serial EKGs, troponins, telemetry monitoring, no chest pain complaints Spoke to ER provider, patient, patient's family, podiatry, nephrology Attestations 2 Medical Necessity Statement*: Patient requires hospitalization, inpatient, greater than 2 midnights, for syncope, bradycardia, hypoglycemia, left foot diabetic ulcer, NSTEMI Diagnoses Syncope R55 Diabetic foot ulcer E11.621; L97.509 Cellulitis of left foot L03.116 ESRD (end stage renal disease) on dialysis N18.6; Z99.2 CKD (chronic kidney disease) N18.5 Chronic kidney disease stage: stage 5, not on chronic dialysis Type 2 diabetes mellitus with other specified complication, with long-term current use of insulin E11.69; Z79.4 Diabetes mellitus complication status: with other specified complication Diabetes mellitus [facility] insulin use: with supervisor intermediates use Hypoglycemia E16.2 Bradycardia R00.1
[2023-12-04 14:36] LABS: C Reactive Protein 40.1 mg/L (0.0-4.9)
--- NOTE | 2023-12-04 14:37 | ECG_ITS ---
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 Measurements Intervals [place] Rate: 46 P: 13 WI: 232 QRS: 141 QRSD: 140 T: 22 QT: 499 QTc: 441 Interpretive Statements SINUS BRADYCARDIA WITH FIRST DEGREE AV BLOCK RIGHT BUNDLE BRANCH BLOCK [120+ ms QRS DURATION, UPRIGHT V1, 40+ ms S IN I/aVL/V4/V5/V6] LEFT POSTERIOR FASCICULAR BLOCK [QRS AXIS > 109, INFERIOR Q] Compared to ECG 12/04/2023 11:47:25 First degree AV block now present Left posterior fascicular block now present Right-axis deviation no longer present Electronically Signed On 12-05-2023 14:47:13 ANALYSIS SPECIALIST by Davin Diaz M.D. [id number]
[2023-12-04 14:48] LABS: Lactic Sepsis W/Reflex 0.6 mmol/L (0.5-2.2)
[2023-12-04 14:49] LABS: NT Pro B Type Natriuretic Pept 47620 pg/mL (0-125)
[2023-12-04 15:06] LABS: Ammonia 17 umol/L (16-60)
[2023-12-04 15:08] LABS: Creatine Phosphokinase 66 U/L (39-308)
[2023-12-04 15:13] LABS: Troponin 5 2HR Delta 2.8 ABS# (0-10)
[2023-12-04 15:18] LABS: Troponin 5 2HR 137.8 ng/L (0-15)
--- NOTE | 2023-12-04 16:00 | CTR_ITS ---
PROCEDURE INFORMATION: Exam: CT Head Without Contrast Exam date and time: 12/04/2023 4:32 PM Age: 58 years old Clinical indication: Syncope and collapse TECHNIQUE: Imaging protocol: Computed tomography of the head without contrast. Radiation optimization: All CT scans at this facility use at least one of these dose optimization techniques: automated exposure control; mA and/or kV adjustment per patient size (includes targeted exams where dose is matched to clinical indication); or iterative reconstruction. COMPARISON: CT head wo con* [id number] 01/18/2023 1:13 PM RADIATION DOSE METRICS: Total DLP (mGy-cm): 1027 FINDINGS: Brain: No acute infarct. No hemorrhage. Unremarkable white matter for age. No mass effect. Cerebral ventricles: No ventriculomegaly. Paranasal sinuses: No significant inflammation. No fluid levels. Mastoid air cells: No significant inflammation. Bones/joints: No acute fracture. Soft tissues: Unremarkable. CT/CT head wo con* [id number] IMPRESSION: No acute intracranial abnormality.
--- NOTE | 2023-12-04 16:00 | CTR_ITS ---
PROCEDURE INFORMATION: Exam: CT Left Lower Extremity Without Contrast, Foot Exam date and time: 12/04/2023 4:36 PM Age: 58 years old Clinical indication: Cellulitis; Foot; Left; Additional info: Diabetic ulcer, at heel TECHNIQUE: Imaging protocol: CT of the left lower extremity without contrast was performed. Exam focused on the foot. Radiation optimization: All CT scans at this facility use at least one of these dose optimization techniques: automated exposure control; mA and/or kV adjustment per patient size (includes targeted exams where dose is matched to clinical indication); or iterative reconstruction. COMPARISON: MR foot LT wo/w con [id number] 07/03/2021 2:30 PM RADIATION DOSE METRICS: Total DLP (mGy-cm): 151 FINDINGS: Bones/joints: There is diffuse bone sclerosis in the calcaneus. The calcaneal tuberosity is foreshortened and there is heterotopic ossification in the hindfoot adjacent to the calcaneus. Bones are diffusely osteopenic otherwise. Joint alignment is normal. No joint effusion. No acute fracture. Dorsal intertarsal osteophytes in the midfoot. There are medial and lateral malleolar are enthesophytes. Soft tissues: There is diffuse dermal erosion overlying the calcaneus. There is superficial edema in the anterior lower leg and dorsum of the foot. There are dystrophic calcifications along visible portion of the Achilles tendon which is markedly attenuated or disrupted distally. No soft tissue gas. Vasculature: Vascular calcification is present. CT/CT foot LT wo con* [id number] IMPRESSION: 1. Chronic diffuse osteomyelitis in the calcaneus. 2. Large dermal ulcer overlying the calcaneus. 3. Chronic Achilles tendon tear.
--- NOTE | 2023-12-04 16:06 | ECG_ITS ---
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 Measurements Intervals [place] Rate: 47 P: 11 AL: 243 QRS: 138 QRSD: 141 T: 29 QT: 499 QTc: 445 Interpretive Statements SINUS BRADYCARDIA WITH FIRST DEGREE AV BLOCK RIGHT AXIS DEVIATION [QRS AXIS > 100] RIGHT BUNDLE BRANCH BLOCK [120+ ms QRS DURATION, UPRIGHT V1, 40+ ms S IN I/aVL/V4/V5/V6] Compared to ECG 12/04/2023 14:37:46 Right-axis deviation now present Left posterior fascicular block no longer present Electronically Signed On 12-05-2023 14:52:21 SCHOLASTIC APTITUDE TEST GRADER by Davin Diaz M.D. [id number]
[2023-12-04 16:20] LABS: Glucose Point of Care 127 mg/dL (70-110)
[2023-12-04] MEDS: heparin 5,000 unit/mL INJ 1 mL 5000 UNIT SUBCUT (16:24)
[2023-12-04] MEDS: pantoprazole 40 mg SDV IVP (16:24)
--- NOTE | 2023-12-04 16:29 | PC.NURSE ---
Medication Delay: Merrem ordered @1600 delayed d/t cultures needing to be drawn
--- NOTE | 2023-12-04 16:52 | PC.NURSE ---
per pt, pt has had approx 2.5 week break from wound care clinic & last dialysis was last night. pt has peritoneal dialysis catheter.
[2023-12-04] MEDS: meropenem 1,000 MG in sodium chloride 0.9% (plus) 50 ML 100 MG IV (18:12)
[2023-12-04 18:13] LABS: Glucose Point of Care 106 mg/dL (70-110)
--- NOTE | 2023-12-04 18:13 | PC.NURSE ---
Glucose recheck: 106 @1812 via fingerstick
[2023-12-04 19:47] LABS: Troponin 5 6HR Delta -5.5 ng/L (0-12)
[2023-12-04 19:48] LABS: Troponin 5 6HR 129.5 ng/L (0-15)
--- NOTE | 2023-12-04 20:23 | P.CONIM_ITS ---
Providers/Reason For Consult 2 Consulting Physician/Specialty*: KOMMANA/nEPHROLOGY Reason for Consult*: esrd Attending Physician: Luciano Mariscal MD Primary Care Provider: SERAFIN Reza History of Present Illness History of Present Illness Tim Robison is a 58 year old male Patient is a 58-year-old male with a past medical history of end-stage renal disease on peritoneal dialysis, diabetes, hypertension, history of chronic osteomyelitis, peripheral vascular disease, CHF peripheral neuropathy dyslipidemia presented to [facility] due to syncopal episode, hypoglycemia and bradycardia.. Patient was brought to the ER due to strokelike symptoms. But was noted to be hypoglycemic and symptoms improved after D50. Lab data is significant for sodium 133 potassium 5.4 creatinine of 7.2 patient also found to have left foot diabetic ulcer was placed on vancomycin and meropenem. Review of Systems 2 Narrative: Other review of systems negative Medications/Allergies Home Medications Medication Instructions Recorded Confirmed Last Taken Type gabapentin 300 mg capsule 300 mg PO BEDTIME 10/11/20 12/04/23 12/03/23 History blood-glucose meter,continuous #1 ea 04/23/22 12/04/23 01/30/23 Rx (Dexcom G6 Glacing Machine Tender) blood-glucose sensor (Dexcom G6 #9 ea 04/23/22 12/04/23 01/30/23 Rx Sensor device) blood-glucose transmitter (Dexcom #3 ea 04/23/22 12/04/23 01/30/23 Rx G6 Transmitter device) albuterol sulfate 90 mcg/actuation 1 puff inhalation Q6H PRN 11/29/22 12/04/23 01/30/23 History aerosol inhaler shortness of breath or wheezing atorvastatin 40 mg tablet 40 mg PO BEDTIME 11/29/22 12/04/23 12/03/23 History famotidine 20 mg tablet 20 mg PO BID 11/29/22 12/04/23 12/04/23 History metoprolol tartrate 100 mg tablet 100 mg PO BID 11/29/22 12/04/23 12/04/23 History pregabalin 200 mg capsule (Lyrica) 200 mg PO TID 11/29/22 12/04/23 12/04/23 History Podus Boot to the Left #1 ea 12/03/22 12/04/23 01/30/23 Rx aspirin 81 mg chewable tablet 81 mg PO QAM #60 tabs 12/06/22 12/04/23 12/04/23 Rx insulin lispro 100 unit/mL See Rx Instructions .Route 01/07/23 12/04/23 12/04/23 Rx subcutaneous pen (Humalog KwikPen .COMPLEX #15 mL (U-100) Insulin) clopidogrel 75 mg tablet (Plavix) 75 mg PO QAM 01/18/23 12/04/23 12/04/23 History docusate sodium 100 mg capsule 100 mg PO BID PRN Constipation 01/18/23 12/04/23 01/30/23 History isosorbide mononitrate 30 mg 30 mg PO QAM 01/18/23 12/04/23 12/04/23 History tablet,extended release 24 hr amlodipine 10 mg tablet 10 mg PO QAM 01/30/23 12/04/23 12/04/23 History furosemide 20 mg tablet (Lasix) 20 - 40 mg PO DAILY PRN Edema 01/30/23 12/04/23 Unknown History ergocalciferol (vitamin D2) 1,250 See Rx Instructions .Route .COMPLEX 08/29/23 12/04/23 12/01/23 History mcg (50,000 unit) capsule (Vitamin D2) insulin detemir U-100 100 unit/mL 52 unit SUBCUT BEDTIME 08/29/23 12/04/23 12/03/23 History (3 mL) subcutaneous pen (Levemir FlexPen) omeprazole 40 mg capsule,delayed 40 mg PO DAILY 08/29/23 12/04/23 12/04/23 History release vit B,C-folic ac 800 mcg-zinc 12.5 1 tab PO DAILY 08/29/23 12/04/23 12/04/23 History mg-selen-D3 2,000 unit-vit E tablet (RenaPlex-D) fluticasone 100 mcg-salmeterol 50 1 inh inhalation BID PRN Shortness 12/04/23 12/04/23 Unknown History mcg/dose blistr powdr for Of Breath inhalation (Advair Diskus) hydralazine 10 mg tablet 10 mg PO BID PRN unknown 12/04/23 12/04/23 Unknown History Allergies Allergy/AdvReac Type Severity Reaction Status Date / Time Iodinated Contrast Media Allergy ALGY-Hives Verified 08/12/23 08:46 Current Medications Generic Name Dose Route Start Last Admin Trade Name Freq PRN Reason Stop Dose Admin Heparin Sodium (Porcine) 5,000 unit 12/04/23 16:00 12/04/23 16:24 Heparin 5,000 Unit/Ml Inj 1 Ml SUBCUT 5,000 unit Q12H KELSEY Administration Meropenem 1,000 mg/ Sodium 50 mls @ 100 mls/hr 12/04/23 16:00 12/04/23 18:12 Chloride IV 100 mls/hr Q8H KELSEY Administration Protocol Insulin Human Lispro 0 unit 12/04/23 18:00 12/04/23 18:10 Insulin Lispro 100 Unit/1 Ml SUBCUT Not Given TIDWM KELSEY Protocol Pantoprazole Sodium 40 mg 12/04/23 16:00 12/04/23 16:24 Pantoprazole 40 Mg Sdv IVP 40 mg Q24H KELSEY Administration PFSH Acute 2 PFSH: Medical History COVID Type 2 diabetes mellitus with foot ulcer NSTEMI (non-ST elevated myocardial infarction) Chronic osteomyelitis Aspiration pneumonia CKD (chronic kidney disease) PVD (peripheral vascular disease) Chronic ulcer of right foot with fat layer exposed 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 Diabetic peripheral neuropathy associated with type 2 diabetes mellitus Elevated troponin Acute diastolic heart failure Chronic kidney disease Hypoxia Hyperkalemia Congestive heart failure Type 2 diabetes mellitus Diabetic ulcer of foot associated with diabetes mellitus due to underlying condition, with fat layer exposed Hyperkalemia Acute kidney injury superimposed on CKD Chronic osteomyelitis 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 Uncontrolled type 2 diabetes with neuropathy Hyperlipidemia Onychomycosis of nail of digit of hand Neuropathy Diabetes Surgical History H/O circumcision H/O colonoscopy 7 yrs ago Status post debridement of ulcer of heel Family History Brother Cancer Sister Lung disease Mother Heart failure Father Chronic kidney failure Denies family history of Anesthesia complication Bleeding disorder Social History Smoking and tobacco/nicotine status: former use of tobacco/nicotine Second hand smoke exposure: No Alcohol intake: never Substance/Drug Use: never Adopted: No Lives independently: Yes Marital status: Single Current occupational status: disabled Vitals/I&O/Wt Last Vital Signs Temp 97.8 F 12/04/23 11:39 Pulse 52 L 12/04/23 19:18 Resp 14 12/04/23 19:18 BP 109/70 12/04/23 19:18 Pulse Ox 98 12/04/23 19:18 O2 Del Method Room Air 12/04/23 14:35 O2 Flow Rate 2 12/04/23 11:39 Weight last 48 hrs Weight 122.47 kg Physical Exam 2 Narrative: Patient is awake and alert no acute distress S1-S2 regular rate rhythm Lungs clear per report Pedal edema left foot ulcer Data 12/04/23 12:20 12/04/23 12:20 Micro: Microbiology 12/04/23 17:43 Blood Culture - Preliminary Blood SPECIMEN COLLECTED 12/04/23 17:47 Blood Culture - Preliminary Blood SPECIMEN COLLECTED A&P Assessment and plan (1) ESRD on peritoneal dialysis: Plan 1. End-stage renal disease: On peritoneal dialysis-patient doing 1 exchange of 2.5 solution with a dwell time of 4 hours -Noted patient have hyperkalemia as well as high BUN will do 2 exchanges 6-hour apart using 2.5% solutions -Also add nystatin as patient is on antibiotics -as prophylaxis to prevent fungal peritonitis risk with -Continue 2 g sodium restriction and 1500 mill fluid restriction 2. History of hypertension: Restart home meds 3. Left foot wound ulcer, management per primary team, on antibiotics 4. Anemia, hemoglobin 13, monitor Patient evaluated using audiovisual cart. Time spent 40 minutes. Consult Attestations 2 Medical Necessity Statement: Per medicine team Coding Level of Care Code Acute Code for Chg Fwd Diagnoses ESRD on peritoneal dialysis N18.6; Z99.2
[2023-12-04 20:58] LABS: Chol HDL Ratio 5.97 mg/dL (1.0-5.00); Cholesterol 209 mg/dL (0-200); HDL Cholesterol 35 mg/dL (60-100); LDL Cholesterol Calculated 153 mg/dL (50-129); LDL HDL Ratio 4.37 RATIO (0.00-3.22); Triglycerides 104 mg/dL (0-150)
[2023-12-04 21:00] LABS: Estmated Average Glucose 151; Hemoglobin A1C 6.9 % (4.0-6.0)
[2023-12-04] MEDS: vancomycin 1,000 MG in sodium chloride 0.9% 250 ML 250 MG IV (21:23)
[2023-12-04] MEDS: nystatin 100,000 unit/mL UDC 5 mL 400000 UNIT PO (21:24)
[2023-12-04] MEDS: pregabalin 100 mg Capsule 200 MG PO (21:24)
[2023-12-04] MEDS: atorvastatin 40 mg Tablet PO (21:24)
[2023-12-04 21:42] LABS: Glucose Point of Care 106 mg/dL (70-110)
[2023-12-05] VITALS (11 sets, daily range): BP systolic 95–111; BP diastolic 53–64; PULSE 60–73; RESP 11–22; TEMP 34.4–36.9; O2SAT 93–97; BMI 40.1
[2023-12-05] MEDS: meropenem 1,000 MG in sodium chloride 0.9% (plus) 50 ML 100 MG IV ×4 (00:59→23:49)
[2023-12-05] MEDS: Dianeal low Ca w/2.5% dex 2,000 mL Bag 2000 ML INTRAPERIT (03:43)
[2023-12-05 03:51] LABS: Hematocrit 38.8 % (37-53); Lymphocytes # 0.2 10^3/uL (0.8-4.8); Lymphocytes % 7.5 %; Mean Corpuscular HGB Conc 31.2 g/dL (30-55); Mean Corpuscular Hemoglobin 28.2 pg (27-33); Mean Corpuscular Volume 90.4 fl (82-101); Mean Platelet Volume 13.5 fL (7.4-10.4); Monocytes % 0.3 %; Neutrophils # 2.91 10^3/uL (1.8-7.7); Neutrophils % 91.3 %; Nucleated Red Blood Cells % 0 %; Platelet Count 154 10^3/cmm (157-399); Red Blood Count 4.29 10^6/uL (3.85-5.65); Red Cell Distribution Width 16.7 % (12.1-15.1); White Blood Count 3.19 10^3/uL (3.29-11.43)
[2023-12-05 04:15] LABS: Slide Review Slide Review Perform
[2023-12-05 04:22] LABS: Anion Gap 23.5 (5-19); Blood Urea Nitrogen 80 mg/dL (6-20); Calcium 7.5 mg/dL (8.5-10.5); Carbon Dioxide 16 mmol/L (22-29); Chloride 103 mmol/L (98-107); Creatinine Clr Calc Pharmacy 14.4112; Glomerular Filtration Rate 7.7 mL/min (90-130); Glucose 132 mg/dL (65-115); Magnesium 2.9 mg/dL (1.7-2.3); Osmolality Calculated 308 mOsm/kg (285-295); Phosphorus 6.8 mg/dL (2.5-4.5); Sodium 136 mmol/L (136-145)
[2023-12-05 04:38] LABS: Potassium 6.5 mmol/L (3.5-5.1)
[2023-12-05] MEDS: aspirin 81 mg Chew Tablet PO (05:31)
[2023-12-05] MEDS: clopidogrel 75 mg Tablet PO (05:31)
[2023-12-05] MEDS: heparin 5,000 unit/mL INJ 1 mL 5000 UNIT SUBCUT ×2 (05:32→15:14)
--- NOTE | 2023-12-05 08:27 | PM.CONSULT ---
Providers/Reason For Consult Consulting Physician/Specialty*: Neymar Allen D.P.M. Reason for Consult*: Wound with osteomyelitis left calcaneus Attending Physician: Luciano Mariscal MD Primary Care Provider: SERAFIN Reza History of Present Illness History of Present Illness Tim Robison is a 58 year old male who presented to the emergency department on 12/04/2023 due to altered mental status. He was found to be hypoglycemic by EMS with blood sugar of 36 g/dL. He was admitted to the hospital service due to altered mental status and bradycardia and subjective malaise. Patient has significant comorbidities, is diabetic, has congestive heart failure and currently on dialysis.He has had a longstanding wound at the left heel that spans back at least 5 years, per his report it has been present 8 years in duration. X-rays on file September 2017 shows a wound extending to the left posterior calcaneus. Review of Systems General: Reports: 10 or more systems reviewed and unremarkable except in HPI and below Const: Denies: fever(s) or chills Eyes: Denies: change in vision Card: Denies: chest pain or palpitations Resp: Denies: dyspnea or productive cough GI: Denies: abdominal pain, nausea or vomiting : Denies: flank pain Musc: Reports: extremity swelling, joint stiffness and deformity Skin/Breast: Reports: erythema, sores, changes in skin color, dry skin, nail changes and change in hair Neuro: Reports: numbness in extremities, sensory changes and difficulty walking Psych: Denies: suicidal ideation Endo: Denies: change in body appearance Jarrod/Lymph: Denies: tender lymph nodes Medications/Allergies Home Medications Medication Instructions Recorded Confirmed Last Taken Type gabapentin 300 mg capsule 300 mg PO BEDTIME 10/11/20 12/04/23 12/03/23 History blood-glucose meter,continuous #1 ea 04/23/22 12/04/23 01/30/23 Rx (Dexcom G6 Layer Up) blood-glucose sensor (Dexcom G6 #9 ea 04/23/22 12/04/23 01/30/23 Rx Sensor device) blood-glucose transmitter (Dexcom #3 ea 04/23/22 12/04/23 01/30/23 Rx G6 Transmitter device) albuterol sulfate 90 mcg/actuation 1 puff inhalation Q6H PRN 11/29/22 12/04/2301/30/23 History aerosol inhaler shortness of breath or wheezing atorvastatin 40 mg tablet 40 mg PO BEDTIME 11/29/22 12/04/23 12/03/23 History famotidine 20 mg tablet 20 mg PO BID 11/29/22 12/04/23 12/04/23 History metoprolol tartrate 100 mg tablet 100 mg PO BID 11/29/22 12/04/23 12/04/23 History pregabalin 200 mg capsule (Lyrica) 200 mg PO TID 11/29/22 12/04/23 12/04/23 History Podus Boot to the Left #1 ea 12/03/22 12/04/23 01/30/23 Rx aspirin 81 mg chewable tablet 81 mg PO QAM #60 tabs 12/06/22 12/04/23 12/04/23 Rx insulin lispro 100 unit/mL See Rx Instructions .Route 01/07/23 12/04/23 12/04/23 Rx subcutaneous pen (Humalog KwikPen .COMPLEX #15 mL (U-100) Insulin) clopidogrel 75 mg tablet (Plavix) 75 mg PO QAM 01/18/23 12/04/23 12/04/23 History docusate sodium 100 mg capsule 100 mg PO BID PRN Constipation 01/18/23 12/04/23 01/30/23 History isosorbide mononitrate 30 mg 30 mg PO QAM 01/18/23 12/04/23 12/04/23 History tablet,extended release 24 hr amlodipine 10 mg tablet 10 mg PO QAM 01/30/23 12/04/23 12/04/23 History furosemide 20 mg tablet (Lasix) 20 - 40 mg PO DAILY PRN Edema 01/30/23 12/04/23 Unknown History ergocalciferol (vitamin D2) 1,250 See Rx Instructions .Route .COMPLEX 08/29/23 12/04/23 12/01/23 History mcg (50,000 unit) capsule (Vitamin D2) insulin detemir U-100 100 unit/mL 52 unit SUBCUT BEDTIME 08/29/23 12/04/23 12/03/23 History (3 mL) subcutaneous pen (Levemir FlexPen) omeprazole 40 mg capsule,delayed 40 mg PO DAILY 08/29/23 12/04/23 12/04/23 History release vit B,C-folic ac 800 mcg-zinc 12.5 1 tab PO DAILY 08/29/23 12/04/23 12/04/23 History mg-selen-D3 2,000 unit-vit E tablet (RenaPlex-D) fluticasone 100 mcg-salmeterol 50 1 inh inhalation BID PRN Shortness 12/04/23 12/04/23 Unknown History mcg/dose blistr powdr for Of Breath inhalation (Advair Diskus) hydralazine 10 mg tablet 10 mg PO BID PRN unknown 12/04/23 12/04/23 Unknown History Allergies Allergy/AdvReac Type Severity Reaction Status Date / Time Iodinated Contrast Media Allergy ALGY-Hives Verified 08/12/23 08:46 Current Medications Generic Name Dose Route Start Last Admin Trade Name Freq PRN Reason Stop Dose Admin Aspirin 81 mg 12/05/23 06:00 12/05/23 05:31 Aspirin 81 Mg Chew Tablet PO 81 mg QAM KELSEY Administration Atorvastatin Calcium 40 mg 12/04/23 21:00 12/04/23 21:24 Atorvastatin 40 Mg Tablet PO 40 mg BEDTIME KELSEY Administration Clopidogrel Bisulfate 75 mg 12/05/23 06:00 12/05/23 05:31 Clopidogrel 75 Mg Tablet PO 75 mg QAM KELSEY Administration Heparin Sodium (Porcine) 5,000 unit 12/04/23 16:00 12/05/23 05:32 Heparin 5,000 Unit/Ml Inj 1 Ml SUBCUT 5,000 unit Q12H KELSEY Administration Meropenem 1,000 mg/ Sodium 50 mls @ 100 mls/hr 12/04/23 16:00 12/05/23 01:38 Chloride IV Infused Q8H KELSEY Infusion Protocol Vancomycin HCl 1,000 mg/ 250 mls @ 250 mls/hr 12/04/23 17:30 12/05/23 00:15 Sodium Chloride IV Infused Q48H KELSEY Infusion Insulin Human Lispro 0 unit 12/04/23 18:00 12/05/23 07:59 Insulin Lispro 100 Unit/1 Ml SUBCUT Not Given TIDWM KELSEY Protocol Nystatin 400,000 unit 12/04/23 21:00 12/04/23 21:24 Nystatin 100,000 Unit/Ml Udc 5 Ml PO 400,000 unit QID KELSEY Administration Pantoprazole Sodium 40 mg 12/04/23 16:00 12/04/23 16:24 Pantoprazole 40 Mg Sdv IVP 40 mg Q24H KELSEY Administration Peritoneal Dialysis Solution 2,000 ml 12/04/23 21:00 12/05/23 03:43 Dianeal Low Ca W/2.5% Dex 2,000 Ml Bag INTRAPERIT 2,000 ml PROTOCOL KELSEY Administration Pregabalin 200 mg 12/04/23 21:00 12/04/23 21:24 Pregabalin 100 Mg Capsule PO 200 mg TID KELSEY Administration PFSH Acute PFSH: Medical History COVID Type 2 diabetes mellitus with foot ulcer NSTEMI (non-ST elevated myocardial infarction) Chronic osteomyelitis Aspiration pneumonia CKD (chronic kidney disease) PVD (peripheral vascular disease) Chronic ulcer of right foot with fat layer exposed 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 Diabetic peripheral neuropathy associated with type 2 diabetes mellitus Elevated troponin Acute diastolic heart failure Chronic kidney disease Hypoxia Hyperkalemia Congestive heart failure Type 2 diabetes mellitus Diabetic ulcer of foot associated with diabetes mellitus due to underlying condition, with fat layer exposed Hyperkalemia Acute kidney injury superimposed on CKD Chronic osteomyelitis 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 Uncontrolled type 2 diabetes with neuropathy Hyperlipidemia Onychomycosis of nail of digit of hand Neuropathy Diabetes Surgical History H/O circumcision H/O colonoscopy 7 yrs ago Status post debridement of ulcer of heel Family History Brother Cancer Sister Lung disease Mother Heart failure Father Chronic kidney failure Denies family history of Anesthesia complication Bleeding disorder Social History Smoking and tobacco/nicotine status: former use of tobacco/nicotine Second hand smoke exposure: No Alcohol intake: never Substance/Drug Use: never Adopted: No Lives independently: Yes Marital status: Single Current occupational status: disabled Vitals/I&O/Wt Last Vital Signs Temp 97.4 F L 12/05/23 08:00 Pulse 62 12/05/23 08:00 Resp 16 12/05/23 04:57 BP 95/55 12/05/23 08:00 Pulse Ox 96 12/05/23 08:00 O2 Del Method Nasal Cannula 12/05/23 08:00 O2 Flow Rate 2 12/05/23 04:23 12/04/23 12/05/23 12/05/23 22:59 06:59 14:59 Intake Total 50 / 50 300 / 350 Balance 50 / 50 300 / 350 Weight last 48 hrs Weight 272 lb 3 oz Weight 270 lb Weight 270 lb Weight 270 lb Physical Exam Narrative: Patient is alert and oriented ?3 and in no acute distress. The following is a focused bilateral lower extremity exam. Patient is wearing bilateral Charcot restraint orthotic walker. VASCULAR: Dorsalis pedis and posterior tibial arteries palpable. Capillary refill time less than 3 seconds to the distal hallux bilaterally. Calf is supple and nontender proximally and distally. Decreased pedal hair growth, pitting edema to the lower extremities. NEUROLOGICAL: Protective sensation intact 0/10 sites, tested with [place] Esdras monofilament to bilateral feet. DERMATOLOGICAL: Full-thickness wound with exposed calcaneus left posterior heel measures 5.5 cm x 7 cm x 1.5 cm, calcaneal tuberosity is exposed and able to be directly probed, demonstrates poor density, serous drainage, no malodor. No purulence. Periwound erythema present without proximal lymphangitis streaking or proximal cellulitis. Wound is 70% granular and 30% fibrotic. MUSCULOSKELETAL: No soft tissue crepitus upon palpation at the left lower extremity. No pain to palpation or with evaluation of wound secondary to neuropathy. Hypermobility at ankle secondary to loss of Achilles attachment able to dorsiflex beyond 15 degrees left ankle. 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 The wound was debrided of hyperkeratotic rim and devitalized and fibrotic tissue down to bone, being the deepest level of debridement. Predebridement measurements: 5.5 cm x 7 cm x 1.5 cm 38.5 cm? total Postdebridement measurements: 5.6 cm x 7 cm x 1.6 cm Hemostasis: Pressure Irrigation: sterile saline Dressing: Hydrofera Blue, Kerlix, Lobo wrap Estimated Blood Loss: minimal Offloading: Posterior heel offloading boot (PODUS boot) Plan 58-year-old male with chronic osteomyelitis of the left calcaneus. CT scan shows findings of chronic osteomyelitis involving the entire calcaneus. Not a candidate for calcanectomy as he would lose the entire calcaneus and not have a plantigrade foot, he is already lost his insertion of the Achilles tendon due to bony erosions at the Achilles insertion site and has a calcaneal. Utilizes a OWLS boot to the left lower extremity for offloading at home. Also has a PODUS boot to offload heel, he has this at home as well. He sees wound care actively who has been assisting in managing his chronic wound with chronic osteomyelitis. Patient has been recommended for a left below-knee amputation multiple times throughout previous hospitalizations. I recommended to the patient a below-knee amputation as a more functional means of surgically managing his infection, this would provide better source control and a more functional amputation level to be fitted with prosthesis. Patient wishes to avoid below-knee amputation at this time, states that should the infection threaten his life at some point down the road that he would be agreeable to an amputation at that point but will hold off for now. -Patient declines BKA at this time -Performed wound debridement as above -Primary dressing Hydrofera Blue followed by Kerlix and Lobo wrap will continue to perform dressing change daily during his hospitalization. -Okay for discharge from podiatry standpoint in regards to his left foot wound, recommend following up with wound care clinic outpatient after discharge Consult Attestations Medical Necessity Statement: Left heel wound with calcaneal osteomyelitis Coding Level of Care Code Acute Code for [facility] Fwd Diagnoses Type 2 diabetes mellitus with other specified complication, with long-term current use of insulin E11.69; Z79.4 Diabetes mellitus complication status: with other specified complication Diabetes mellitus fpc insulin use: with supervisor intermediates use ESRD (end stage renal disease) on dialysis N18.6; Z99.2 Chronic osteomyelitis M86.60 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 Comment Wound debridement down to bone CPT code 76003 and 17952
[2023-12-05] MEDS: nystatin 100,000 unit/mL UDC 5 mL 400000 UNIT PO ×4 (10:01→21:14)
[2023-12-05] MEDS: pregabalin 100 mg Capsule 200 MG PO ×3 (10:02→21:15)
[2023-12-05] MEDS: insulin regular-human 10 UNIT in SYRINGE 1 EACH 0.100000000000000006 UNIT IVP (10:02)
[2023-12-05] MEDS: FUROsemide 10 mg/mL SDV 4mL 40 MG IVP (10:02)
[2023-12-05] MEDS: calcium gluconate 0.1 gm/mL 10% SDV 10mL 1 GM IVP (10:03)
[2023-12-05] MEDS: dextrose 10% 250 ML 1000 ML IV (10:04)
[2023-12-05 10:37] LABS: Glucose Point of Care 327 mg/dL (70-110)
[2023-12-05] MEDS: FUROsemide 10 mg/mL SDV 10mL 80 MG IVP (11:09)
[2023-12-05] MEDS: sodium polystyrene sulfonate 15 gm/60 mL Btl 30 GM PO (11:11)
--- NOTE | 2023-12-05 12:22 | P.PN_ITS ---
Subjective 2 Subjective: Seen this morning, he is alert oriented x 3, following all commands no lightheadedness, dizziness, we discussed his hyperkalemia we will have to give him calcium, gluconate, Kayexalate, Lasix he denies any chest pain, no palpitations no lightheadedness, dizziness he did get peritoneal dialysis yesterday, we discussed his CT findings of his left foot, chronic calcaneal osteomyelitis, with surrounding cellulitis, he is on IV antibiotics will have podiatry consult, he denies any lightheadedness, no dizziness, no nausea, no vomiting, no abdominal pain Vitals/I&O/Wt Last Vital Signs Temp 97.7 F 12/05/23 11:55 Pulse 63 12/05/23 11:55 Resp 11 L 12/05/23 11:55 BP 111/59 12/05/23 11:55 Pulse Ox 96 12/05/23 08:00 O2 Del Method Nasal Cannula 12/05/23 08:00 O2 Flow Rate 2 12/05/23 04:23 12/04/23 12/05/23 12/05/23 22:59 06:59 14:59 Intake Total 50 / 50 300 / 350 420.1 / 420.1 Balance 50 / 50 300 / 350 420.1 / 420.1 Weight last 48 hrs Weight 123.462 kg Weight 122.47 kg Weight 122.47 kg Weight 122.47 kg Physical Exam 2 Const: COMMON NORMALS: no acute distress and patient oriented x3 Resp: COMMON NORMALS: normal respiratory effort, No retractions, No use of accessory muscles and clear to auscultation bilaterally AUSCULTATION: clear to auscultation bilaterally Cardio: COMMON NORMALS: regular rate, regular rhythm, S1 normal heart sound present and S2 normal heart sound present RATE: regular rate RHYTHM: r egular rhythm HEART SOUNDS: S1 normal heart sound present and S2 normal heart sound present GI: COMMON NORMALS: Normal to inspection, nondistended, normoactive bowel sounds present and non-tender Extremity: COMMON NORMALS: no pedal edema Neuro: COMMON NORMALS: patient oriented x3 Psych: COMMON NORMALS: mental status grossly normal Data 12/05/23 03:28 12/05/23 03:28 Micro: Microbiology 12/04/23 17:43 Blood Culture - Preliminary Blood SPECIMEN COLLECTED 03/06/24 17:47 Blood Culture - Preliminary Blood SPECIMEN COLLECTED A&P Assessment and plan (1) Syncope: (2) Diabetic foot ulcer: (3) Cellulitis of left foot: (4) ESRD (end stage renal disease) on dialysis: (5) CKD (chronic kidney disease): Qualifiers: Chronic kidney disease stage: stage 5, not on chronic dialysis Qualified Code(s): N18.5 - Chronic kidney disease, stage 5 (6) Type 2 diabetes mellitus: Qualifiers: Diabetes mellitus complication status: with other specified complication Diabetes mellitus senior living insulin use: with senior living use Qualified Code(s): E11.69 - Type 2 diabetes mellitus with other specified complication; Z79.4 - skilled nursing (current) use of insulin (7) Hypoglycemia: (8) Bradycardia: Plan Syncope -Serial EKGs, serial troponins, telemetry monitoring -CT head within normal limits -Cardiac echo within normal limits -Telemetry monitoring -Carotid artery ultrasound within normal limits -Orthostatic vitals Bradycardia -Serial EKGs, serial troponins, telemetry monitoring -Potentially related to beta-sharif, hold -Potential related to hyperglycemia, monitor Hypoglycemia, resolving -Etiology unclear potentially related to Levemir, sliding scale ? Low-dose sliding scale Left foot diabetic ulcer -ESR 89, CRP 40, blood cultures -CT left lower extremity/foot CT/CT foot LT wo con* [id number] IMPRESSION: 1. Chronic diffuse osteomyelitis in the calcaneus. 2. Large dermal ulcer overlying the calcaneus. 3. Chronic Achilles tendon tear. ? Continue vancomycin, meropenem -Consult podiatry End-stage renal disease continue peritoneal dialysis, consult nephrology NSTEMI, serial EKGs, troponins, telemetry monitoring, no chest pain complaints Hyperkalemia management, Kayexalate, insulin, D50, Lasix, recheck BMP at 11 Left lateral thigh fluid-filled blister, measuring 3 x 3 cm round, monitor Attestations 2 Medical Necessity Statement*: Patient requires hospitalization for syncope, bradycardia, left foot diabetic ulcer with concerns for osteomyelitis, hyperkalemia, potassium 6.5 requiring inpatient monitoring, greater than 2 midnights Diagnoses Syncope R55 Diabetic foot ulcer E11.621; L97.509 Cellulitis of left foot L03.116 ESRD (end stage renal disease) on dialysis N18.6; Z99.2 CKD (chronic kidney disease) N18.5 Chronic kidney disease stage: stage 5, not on chronic dialysis Type 2 diabetes mellitus with other specified complication, with long-term current use of insulin E11.69; Z79.4 Diabetes mellitus complication status: with other specified complication 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
[2023-12-05 13:02] LABS: Glucose Point of Care 267 mg/dL (70-110)
[2023-12-05] MEDS: sodium polystyrene sulfonate 15 gm/60 mL Btl PO ×2 (13:22→21:15)
[2023-12-05] MEDS: insulin lispro 100 unit/1 mL SUBCUT ×2 (13:23→18:28)
[2023-12-05 15:12] LABS: Anion Gap 20.3 (5-19); Blood Urea Nitrogen 74 mg/dL (6-20); Calcium 7.7 mg/dL (8.5-10.5); Carbon Dioxide 19 mmol/L (22-29); Chloride 100 mmol/L (98-107); Creatinine Clr Calc Pharmacy 15.3008; Glomerular Filtration Rate 8.2 mL/min (90-130); Glucose 311 mg/dL (65-115); Osmolality Calculated 312 mOsm/kg (285-295); Potassium 5.3 mmol/L (3.5-5.1); Sodium 134 mmol/L (136-145)
[2023-12-05] MEDS: pantoprazole 40 mg SDV IVP (15:14)
--- NOTE | 2023-12-05 16:53 | P.PN_ITS ---
Subjective 2 Subjective: getting PD exchanges Medications: Reviewed: Yes Vitals/I&O/Wt Last Vital Signs Temp 97.4 F L 12/05/23 16:00 Pulse 65 12/05/23 16:00 Resp 17 12/05/23 16:00 BP 110/64 12/05/23 16:00 Pulse Ox 96 12/05/23 14:12 O2 Del Method Nasal Cannula 12/05/23 14:12 O2 Flow Rate 2 12/05/23 14:12 12/05/23 12/05/23 12/05/23 06:59 14:59 22:59 Intake Total 300 / 350 420.1 / 420.1 50 / 470.1 Balance 300 / 350 420.1 / 420.1 50 / 470.1 Weight last 48 hrs Weight 123.462 kg Weight 122.47 kg Weight 122.47 kg Weight 122.47 kg Physical Exam 2 Narrative: Patient is awake and alert no acute distress S1-S2 regular rate rhythm Lungs clear per report Pedal edema left foot ulcer Data 12/05/23 03:28 12/05/23 14:43 Micro: Microbiology 12/04/23 17:43 Blood Culture - Preliminary Blood SPECIMEN COLLECTED 12/04/23 17:47 Blood Culture - Preliminary Blood SPECIMEN COLLECTED A&P Assessment and plan (1) ESRD on peritoneal dialysis: Plan 1. End-stage renal disease: On peritoneal dialysis-patient doing 1 exchange of 2.5 solution with a dwell time of 4 hours -Noted patient have hyperkalemia as well as high BUN will do 4 exchanges 6-hour apart using 2.5% solutions -Also add nystatin as patient is on antibiotics -as prophylaxis to prevent fungal peritonitis risk with -Continue 2 g sodium restriction and 1500 mill fluid restriction 2. History of hypertension: Restart home meds 3. Left foot wound ulcer, management per primary team, on antibiotics 4. Anemia, hemoglobin 13, monitor 5. hyperkalemia : s/p kayexylate , low K diet Patient evaluated using audiovisual cart. Time spent 40 minutes. Attestations 2 Medical Necessity Statement*: per candida Coding Level of Care Code Acute Code for [facility] Fwd Diagnoses ESRD on peritoneal dialysis N18.6; Z99.2
[2023-12-05 16:55] LABS: Glucose Point of Care 303 mg/dL (70-110)
[2023-12-05 17:34] LABS: Blood Urea Nitrogen 73 mg/dL (6-20); Calcium 7.8 mg/dL (8.5-10.5); Carbon Dioxide 19 mmol/L (22-29); Chloride 103 mmol/L (98-107); Creatinine Clr Calc Pharmacy 15.7508; Glomerular Filtration Rate 8.5 mL/min (90-130); Glucose 286 mg/dL (65-115); Osmolality Calculated 312 mOsm/kg (285-295); Sodium 135 mmol/L (136-145)
[2023-12-05 17:57] LABS: Anion Gap 18.5 (5-19); Potassium 5.5 mmol/L (3.5-5.1)
[2023-12-05 20:29] LABS: Glucose Point of Care 299 mg/dL (70-110)
[2023-12-05] MEDS: atorvastatin 40 mg Tablet PO (21:15)
[2023-12-05 21:23] LABS: Glucose Point of Care 325 mg/dL (70-110)
[2023-12-06] VITALS (10 sets, daily range): BP systolic 104–126; BP diastolic 61–71; PULSE 67–82; RESP 16–17; TEMP 36.4–36.8; O2SAT 95–97
[2023-12-06] MEDS: sodium polystyrene sulfonate 15 gm/60 mL Btl PO ×4 (01:00→20:52)
[2023-12-06] MEDS: Dianeal low Ca w/2.5% dex 2,000 mL Bag 2000 ML INTRAPERIT ×2 (03:20→16:27)
[2023-12-06] MEDS: heparin 5,000 unit/mL INJ 1 mL 5000 UNIT SUBCUT ×2 (03:21→16:45)
[2023-12-06] MEDS: clopidogrel 75 mg Tablet PO (05:19)
[2023-12-06] MEDS: aspirin 81 mg Chew Tablet PO (05:19)
[2023-12-06 05:52] LABS: Hematocrit 34.4 % (37-53); Lymphocytes # 0.5 10^3/uL (0.8-4.8); Lymphocytes % 11.5 %; Mean Corpuscular HGB Conc 30.8 g/dL (30-55); Mean Corpuscular Hemoglobin 28.3 pg (27-33); Mean Corpuscular Volume 91.7 fl (82-101); Mean Platelet Volume 13.7 fL (7.4-10.4); Monocytes # 0.4 10^3/uL (0.2-0.9); Monocytes % 8.5 %; Neutrophils # 3.46 10^3/uL (1.8-7.7); Neutrophils % 79.3 %; Nucleated Red Blood Cells % 0 %; Platelet Count 140 10^3/cmm (157-399); Red Blood Count 3.75 10^6/uL (3.85-5.65); Red Cell Distribution Width 16.8 % (12.1-15.1); White Blood Count 4.36 10^3/uL (3.29-11.43)
[2023-12-06 06:21] LABS: Alanine Aminotransferase 12 U/L (0-41); Albumin Level 2.7 g/dL (3.5-5.2); Alkaline Phosphatase 169 U/L (40-130); Anion Gap 17.2 (5-19); Aspartate Amino Transferase 24 U/L (0-40); Blood Urea Nitrogen 70 mg/dL (6-20); C Reactive Protein 19.6 mg/L (0.0-4.9); Calcium 7.5 mg/dL (8.5-10.5); Carbon Dioxide 21 mmol/L (22-29); Chloride 102 mmol/L (98-107); Creatinine Clr Calc Pharmacy 14.7507; Globulin 2.7 g/dL (1.3-4.6); Glomerular Filtration Rate 7.8 mL/min (90-130); Glucose 318 mg/dL (65-115); Magnesium 2.5 mg/dL (1.7-2.3); Osmolality Calculated 313 mOsm/kg (285-295); Phosphorus 6.8 mg/dL (2.5-4.5); Potassium 5.2 mmol/L (3.5-5.1); Sodium 135 mmol/L (136-145); Total Bilirubin 0.3 mg/dL (0.15-1.2); Total Protein 5.4 g/dL (6.6-8.7)
[2023-12-06 06:28] LABS: Procalcitonin 3.99 ng/mL (0-0.5)
[2023-12-06 06:40] LABS: Glucose Point of Care 343 mg/dL (70-110)
[2023-12-06 06:48] LABS: NT Pro B Type Natriuretic Pept 50600 pg/mL (0-125)
[2023-12-06] MEDS: insulin lispro 100 unit/1 mL SUBCUT ×2 (08:03→12:30)
[2023-12-06] MEDS: pregabalin 100 mg Capsule 200 MG PO ×3 (08:07→20:52)
[2023-12-06] MEDS: meropenem 1,000 MG in sodium chloride 0.9% (plus) 50 ML 100 MG IV ×2 (08:09→16:46)
[2023-12-06] MEDS: nystatin 100,000 unit/mL UDC 5 mL 400000 UNIT PO ×4 (08:16→20:52)
--- NOTE | 2023-12-06 08:37 | P.PN_ITS ---
Subjective 2 Subjective: getting PD Medications: Reviewed: Yes Vitals/I&O/Wt Last Vital Signs Temp 98.2 F 12/06/23 07:29 Pulse 79 12/06/23 07:29 Resp 17 12/06/23 07:29 BP 121/64 12/06/23 07:29 Pulse Ox 95 12/06/23 07:29 O2 Del Method Nasal Cannula 12/06/23 07:29 O2 Flow Rate 2 12/05/23 21:46 12/05/23 12/06/23 12/06/23 22:59 06:59 14:59 Intake Total 50 / 470.1 50 / 520.1 120 / 120 Output Total 250 / 250 Balance -200 / 220.1 50 / 270.1 120 / 120 Weight last 48 hrs Weight 124.693 kg Weight 123.462 kg Weight 122.47 kg Weight 122.47 kg Weight 122.47 kg Physical Exam 2 Narrative: Patient is awake and alert no acute distress S1-S2 regular rate rhythm Lungs clear per report Pedal edema left foot ulcer Data 12/06/23 05:18 12/06/23 05:18 Micro: Microbiology 12/04/23 17:47 Blood Culture - Preliminary Blood NEGATIVE TO DATE 12/04/23 17:43 Blood Culture - Preliminary Blood NEGATIVE TO DATE A&P Assessment and plan (1) ESRD on peritoneal dialysis: Plan 1. End-stage renal disease: On peritoneal dialysis-patient doing 1 exchange of 2.5 solution with a dwell time of 4 hours -Noted patient have hyperkalemia as well as high BUN will do 4 exchanges 6-hour apart using 2.5% solutions -Also add nystatin as patient is on antibiotics -as prophylaxis to prevent fungal peritonitis risk with -Continue 2 g sodium restriction and 1500 mill fluid restriction 2. History of hypertension: Restart home meds 3. Left foot wound ulcer, management per primary team, on antibiotics, seen by podiatry , recommended BKA but pt declined 4. Anemia, hemoglobin 13, monitor 5. hyperkalemia : s/p kayexylate , low K diet Patient evaluated using audiovisual cart. Time spent 20 minutes. Attestations 2 Medical Necessity Statement*: per candida Coding Level of Care Code Acute Code for [facility] Fwd Diagnoses ESRD on peritoneal dialysis N18.6; Z99.2
[2023-12-06] MEDS: insulin glargine 100 units/1 mL 10 UNIT SUBCUT (09:44)
[2023-12-06 11:01] LABS: Glucose Point of Care 274 mg/dL (70-110)
--- NOTE | 2023-12-06 11:24 | PM.PN ---
Subjective Subjective: patient was seen this morning, he has no complaints, no fever, no cough, no lightheadedness, no dizzyness, Vitals/I&O/Wt Last Vital Signs Temp 98.2 F 12/06/23 08:00 Pulse 79 12/06/23 08:00 Resp 17 12/06/23 08:00 BP 121/64 12/06/23 08:00 Pulse Ox 95 12/06/23 07:29 O2 Del Method Nasal Cannula 12/06/23 07:29 O2 Flow Rate 2 12/05/23 21:46 12/05/23 12/06/23 12/06/23 22:59 06:59 14:59 Intake Total 50 / 470.1 50 / 520.1 170 / 170 Output Total 250 / 250 Balance -200 / 220.1 50 / 270.1 170 / 170 Weight last 48 hrs Weight 124.693 kg Weight 123.462 kg Weight 122.47 kg Weight 122.47 kg Weight 122.47 kg Physical Exam Const: COMMON NORMALS: no acute distress and patient oriented x3 Resp: COMMON NORMALS: normal respiratory effort, No retractions, No use of accessory muscles and clear to auscultation bilaterally AUSCULTATION: clear to auscultation bilaterally Cardio: COMMON NORMALS: regular rate, regular rhythm, S1 normal heart sound present and S2 normal heart sound present RATE: regular rate RHYTHM: regular rhythm HEART SOUNDS: S1 normal heart sound present and S2 normal heart sound present GI: COMMON NORMALS: Normal to inspection, nondistended, normoactive bowel sounds present and non-tender Extremity: NARRATIVE EXTREMITY EXAM: 1+ edema Neuro: COMMON NORMALS: patient oriented x3 Psych: COMMON NORMALS: mental status grossly normal Data 12/06/23 05:18 12/06/23 05:18 Micro: Microbiology 12/04/23 17:47 Blood Culture - Preliminary Blood NEGATIVE TO DATE 12/04/23 17:43 Blood Culture - Preliminary Blood NEGATIVE TO DATE A&P Assessment and plan (1) Syncope: (2) Diabetic foot ulcer: (3) Cellulitis of left foot: (4) ESRD (end stage renal disease) on dialysis: (5) CKD (chronic kidney disease): Qualifiers: Chronic kidney disease stage: stage 5, not on chronic dialysis Qualified Code(s): N18.5 - Chronic kidney disease, stage 5 (6) Type 2 diabetes mellitus: Qualifiers: Diabetes mellitus complication status: with other specified complication Diabetes mellitus intermediate project manager insulin use: with intermediate project manager use Qualified Code(s): E11.69 - Type 2 diabetes mellitus with other specified complication; Z79.4 - intermediate project manager (current) use of insulin (7) Hypoglycemia: (8) Bradycardia: (9) Fluid overload: (10) CHF exacerbation: Plan Syncope -Serial EKGs, serial troponins, telemetry monitoring -CT head within normal limits -Cardiac echo within normal limits -Telemetry monitoring -Carotid artery ultrasound within normal limits -Orthostatic vitals Bradycardia -Serial EKGs, serial troponins, telemetry monitoring -Potentially related to beta-sharif, hold -Potential related to hyperglycemia, monitor Hypoglycemia, resolving -Etiology unclear potentially related to Levemir, sliding scale ? Low-dose sliding scale Left foot diabetic ulcer -ESR 89, CRP 40, blood cultures -CT left lower extremity/foot CT/CT foot LT wo con* [id number] IMPRESSION: 1. Chronic diffuse osteomyelitis in the calcaneus. 2. Large dermal ulcer overlying the calcaneus. 3. Chronic Achilles tendon tear. ? Continue vancomycin, meropenem -Consult podiatry -patient declines L BKA, given evidence of diffuse osteomyelitis in the calcaneus, has been on multiple IV abx regimens in the past, discussed morbidity and mortality associated with infection/osteomyelitis, however patient declines, will medically manage, will speak to infectious disease Fluid overload/chf exacerbation -has recieved lasix -will get PD dialysis End-stage renal disease continue peritoneal dialysis, consult nephrology NSTEMI, serial EKGs, troponins, telemetry monitoring, no chest pain complaints Hyperkalemia management, monitor Left lateral thigh fluid-filled blister, measuring 3 x 3 cm round, monitor Attestations Medical Necessity Statement*: patient requires hospitalization for fluid overload, chronic calcaneal osteo, syncope Diagnoses Syncope R55 Diabetic foot ulcer E11.621; L97.509 Cellulitis of left foot L03.116 ESRD (end stage renal disease) on dialysis N18.6; Z99.2 CKD (chronic kidney disease) N18.5 Chronic kidney disease stage: stage 5, not on chronic dialysis Type 2 diabetes mellitus with other specified complication, with long-term current use of insulin E11.69; Z79.4 Diabetes mellitus complication status: with other specified complication Diabetes mellitus intermediate project manager insulin use: with jail use Hypoglycemia E16.2 Bradycardia R00.1 Fluid overload E87.70 CHF exacerbation I50.9
--- NOTE | 2023-12-06 11:45 | PC.SOCIAL ---
Pg 2 IMM Explained to pt Pg 2 IMM. No questions voiced. Provided pt a copy. Initialed, dated, & timed a copy & placed in chart.
[2023-12-06] MEDS: pantoprazole 40 mg SDV IVP (16:46)
[2023-12-06 16:52] LABS: Glucose Point of Care 137 mg/dL (70-110)
[2023-12-06] MEDS: vancomycin 1,000 MG in sodium chloride 0.9% 250 ML 250 MG IV (17:55)
[2023-12-06] MEDS: atorvastatin 40 mg Tablet PO (20:52)
[2023-12-06 21:29] LABS: Glucose Point of Care 231 mg/dL (70-110)
[2023-12-07] VITALS (11 sets, daily range): BP systolic 132–147; BP diastolic 67–79; PULSE 74–89; RESP 16–17; TEMP 36.3–37; O2SAT 96–97
[2023-12-07] MEDS: meropenem 1,000 MG in sodium chloride 0.9% (plus) 50 ML 100 MG IV ×3 (01:01→15:32)
[2023-12-07] MEDS: sodium polystyrene sulfonate 15 gm/60 mL Btl PO (01:02)
[2023-12-07] MEDS: aspirin 81 mg Chew Tablet PO (05:10)
[2023-12-07] MEDS: heparin 5,000 unit/mL INJ 1 mL 5000 UNIT SUBCUT ×2 (05:10→15:31)
[2023-12-07] MEDS: clopidogrel 75 mg Tablet PO (05:10)
[2023-12-07 05:52] LABS: Basophils % 0.5 %; Eosinophils # 0.1 10^3/uL (0.0-0.8); Eosinophils % 2.3 %; Hematocrit 34.8 % (37-53); Lymphocytes # 0.7 10^3/uL (0.8-4.8); Lymphocytes % 16.8 %; Mean Corpuscular HGB Conc 31.3 g/dL (30-55); Mean Corpuscular Hemoglobin 28.3 pg (27-33); Mean Corpuscular Volume 90.4 fl (82-101); Mean Platelet Volume 13.3 fL (7.4-10.4); Monocytes # 0.5 10^3/uL (0.2-0.9); Neutrophils # 2.92 10^3/uL (1.8-7.7); Neutrophils % 67.2 %; Nucleated Red Blood Cells % 0 %; Platelet Count 112 10^3/cmm (157-399); Red Blood Count 3.85 10^6/uL (3.85-5.65); Red Cell Distribution Width 16.9 % (12.1-15.1); White Blood Count 4.34 10^3/uL (3.29-11.43)
[2023-12-07 06:21] LABS: Alanine Aminotransferase 35 U/L (0-41); Albumin Level 2.6 g/dL (3.5-5.2); Alkaline Phosphatase 229 U/L (40-130); Anion Gap 17.9 (5-19); Aspartate Amino Transferase 75 U/L (0-40); Blood Urea Nitrogen 68 mg/dL (6-20); C Reactive Protein 14.6 mg/L (0.0-4.9); Calcium 7.2 mg/dL (8.5-10.5); Carbon Dioxide 24 mmol/L (22-29); Chloride 100 mmol/L (98-107); Creatinine Clr Calc Pharmacy 16.0717; Globulin 3.4 g/dL (1.3-4.6); Glomerular Filtration Rate 8.6 mL/min (90-130); Glucose 228 mg/dL (65-115); Magnesium 2.4 mg/dL (1.7-2.3); Osmolality Calculated 313 mOsm/kg (285-295); Phosphorus 6.8 mg/dL (2.5-4.5); Potassium 3.9 mmol/L (3.5-5.1); Procalcitonin 3.58 ng/mL (0-0.5); Sodium 138 mmol/L (136-145); Total Bilirubin 0.3 mg/dL (0.15-1.2)
[2023-12-07 06:53] LABS: NT Pro B Type Natriuretic Pept 44946 pg/mL (0-125)
[2023-12-07 07:07] LABS: Glucose Point of Care 227 mg/dL (70-110)
[2023-12-07] MEDS: insulin glargine 100 units/1 mL 10 UNIT SUBCUT (08:30)
[2023-12-07] MEDS: nystatin 100,000 unit/mL UDC 5 mL 400000 UNIT PO ×4 (08:30→20:46)
[2023-12-07] MEDS: insulin lispro 100 unit/1 mL SUBCUT ×3 (08:30→18:04)
[2023-12-07] MEDS: pregabalin 100 mg Capsule 200 MG PO ×3 (08:30→20:45)
[2023-12-07 11:07] LABS: Glucose Point of Care 278 mg/dL (70-110)
--- NOTE | 2023-12-07 11:40 | P.PN_ITS ---
Subjective 2 Subjective: Patient was seen this morning, he denies any fevers, chills, no cough, I had a detailed discussion with him about his elevated inflammatory markers, likely related to chronic calcaneal osteomyelitis, I am worried about his increased risk of morbidity and mortality, risk of sepsis, however after detailed discussion he still declines below-knee amputation, he tells me that if it is up to the point that he is going to , then he is okay with us performing a below-knee amputation, and advised him that if he came to that point he would also have a high risk of morbidity and mortality given severity of the infection now, and in the future, however he is still adamant that he does not want to have an amputation as of yet, given his elevated inflammatory markers I am to speak to infectious disease about IV versus oral antibiotics, will have to continue to monitor medicine patient he is agreeable, he did ambulate with physical therapy yesterday Vitals/I&O/Wt Last Vital Signs Temp 97.4 F L 12/07/23 08:00 Pulse 88 12/07/23 08:00 Resp 16 12/07/23 08:00 BP 132/67 12/07/23 08:00 Pulse Ox 96 12/07/23 07:33 O2 Del Method Nasal Cannula 12/07/23 07:58 O2 Flow Rate 2 12/07/23 08:00 12/06/23 12/07/23 12/07/23 22:59 06:59 14:59 Intake Total 570 / 1100 50 / 1150 50 / 50 Output Total 2 / 2 Balance 568 / 1098 50 / 1148 50 / 50 Weight last 48 hrs Weight 124.71 kg Weight 124.693 kg Physical Exam 2 Const: COMMON NORMALS: no acute distress and patient oriented x3 Neck/C-Spine: COMMON NORMALS: no JVD Resp: COMMON NORMALS: normal respiratory effort, No retractions, No use of accessory muscles and clear to auscultation bilaterally AUSCULTATION: clear to auscultation bilaterally Cardio: COMMON NORMALS: no JVD, regular rate, regular rhythm, S1 normal heart sound present and S2 normal heart sound present RATE: regular rate RHYTHM: regular rhythm HEART SOUNDS: S1 normal heart sound present and S2 normal heart sound present GI: COMMON NORMALS: Normal to inspection, nondistended, normoactive bowel sounds present and non-tender Extremity: COMMON NORMALS: no pedal edema Neuro: COMMON NORMALS: patient oriented x3 Data 12/07/23 05:02 12/07/23 05:02 A&P Assessment and plan (1) Syncope: (2) Diabetic foot ulcer: (3) Cellulitis of left foot: (4) ESRD (end stage renal disease) on dialysis: (5) CKD (chronic kidney disease): Qualifiers: Chronic kidney disease stage: stage 5, not on chronic dialysis Qualified Code(s): N18.5 - Chronic kidney disease, stage 5 (6) Type 2 diabetes mellitus: Qualifiers: Diabetes mellitus complication status: with other specified complication Diabetes mellitus fpc insulin use: with fpc use Qualified Code(s): E11.69 - Type 2 diabetes mellitus with other specified complication; Z79.4 - alf (current) use of insulin (7) Hypoglycemia: (8) Bradycardia: (9) Fluid overload: (10) CHF exacerbation: Plan Syncope -Serial EKGs, serial troponins, telemetry monitoring -CT head within normal limits -Cardiac echo within normal limits -Telemetry monitoring -Carotid artery ultrasound within normal limits -Orthostatic vitals Bradycardia -Serial EKGs, serial troponins, telemetry monitoring -Potentially related to beta-sharif, hold -Potential related to hyperglycemia, monitor Hypoglycemia, resolving -Etiology unclear potentially related to Levemir, sliding scale ? Low-dose sliding scale Left foot diabetic ulcer, with cellulitis with osteomyelitis -ESR 89, CRP 40, blood cultures -CT left lower extremity/foot CT/CT foot LT wo con* [id number] IMPRESSION: 1. Chronic diffuse osteomyelitis in the calcaneus. 2. Large dermal ulcer overlying the calcaneus. 3. Chronic Achilles tendon tear. ? Continue vancomycin, meropenem -Consult podiatry -patient declines L BKA, given evidence of diffuse osteomyelitis in the calcaneus, has been on multiple IV abx regimens in the past, discussed morbidity and mortality associated with infection/osteomyelitis, however patient declines, will medically manage, will speak to infectious disease about IV versus p.o. antibiotics Fluid overload/chf exacerbation -has recieved lasix -will get PD dialysis End-stage renal disease continue peritoneal dialysis, consult nephrology NSTEMI, serial EKGs, troponins, telemetry monitoring, no chest pain complaints Hyperkalemia management, monitor Left lateral thigh fluid-filled blister, measuring 3 x 3 cm round, monitor Attestations 2 Medical Necessity Statement*: Patient requires hospitalization for left foot diabetic ulcer, with osteomyelitis Diagnoses Syncope R55 Diabetic foot ulcer E11.621; L97.509 Cellulitis of left foot L03.116 ESRD (end stage renal disease) on dialysis N18.6; Z99.2 CKD (chronic kidney disease) N18.5 Chronic kidney disease stage: stage 5, not on chronic dialysis Type 2 diabetes mellitus with other specified complication, with long-term current use of insulin E11.69; Z79.4 Diabetes mellitus complication status: with other specified complication Diabetes mellitus termite control service representative insulin use: with termite control service representative use Hypoglycemia E16.2 Bradycardia R00.1 Fluid overload E87.70 CHF exacerbation I50.9
[2023-12-07] MEDS: Dianeal low Ca w/2.5% dex 2,000 mL Bag 2000 ML INTRAPERIT ×2 (11:59→20:00)
--- NOTE | 2023-12-07 13:54 | P.PN_ITS ---
Subjective 2 Subjective: doing well Medications: Reviewed: Yes Vitals/I&O/Wt Last Vital Signs Temp 97.9 F 12/07/23 12:00 Pulse 89 12/07/23 12:00 Resp 16 12/07/23 12:00 BP 147/78 12/07/23 12:00 Pulse Ox 96 12/07/23 12:00 O2 Del Method Nasal Cannula 12/07/23 12:00 O2 Flow Rate 2 12/07/23 12:00 12/06/23 12/07/23 12/07/23 22:59 06:59 14:59 Intake Total 570 / 1100 50 / 1150 50 / 50 Output Total 2 / 2 Balance 568 / 1098 50 / 1148 50 / 50 Weight last 48 hrs Weight 124.71 kg Weight 124.693 kg Physical Exam 2 Narrative: Patient is awake and alert no acute distress S1-S2 regular rate rhythm Lungs clear per report Pedal edema left foot ulcer Data 12/07/23 05:02 12/07/23 05:02 A&P Assessment and plan (1) ESRD on peritoneal dialysis: Plan 1. End-stage renal disease: On peritoneal dialysis-patient doing 1 exchange of 2.5 solution with a dwell time of 4 hours -Noted patient have hyperkalemia as well as high BUN will do 4 exchanges 6-hour apart using 2.5% solutions -Also add nystatin as patient is on antibiotics -as prophylaxis to prevent fungal peritonitis risk with -Continue 2 g sodium restriction and 1500 mill fluid restriction 2. History of hypertension: Restart home meds 3. Left foot wound ulcer, management per primary team, on antibiotics, seen by podiatry , recommended BKA but pt declined 4. Anemia, hemoglobin 13, monitor 5. hyperkalemia : s/p kayexylate , low K diet Patient evaluated using audiovisual cart. Time spent 20 minutes. Attestations 2 Medical Necessity Statement*: per geniend Coding Level of Care Code Acute Code for Chg Fwd Diagnoses ESRD on peritoneal dialysis N18.6; Z99.2
[2023-12-07] MEDS: pantoprazole 40 mg SDV IVP (15:32)
[2023-12-07 17:46] LABS: Glucose Point of Care 164 mg/dL (70-110)
[2023-12-07 20:44] LABS: Glucose Point of Care 85 mg/dL (70-110)
[2023-12-07] MEDS: atorvastatin 40 mg Tablet PO (20:45)
[2023-12-08] VITALS (11 sets, daily range): BP systolic 128–145; BP diastolic 70–78; PULSE 75–85; RESP 16–18; TEMP 36.3–36.6; O2SAT 96–99; BMI 40.2
[2023-12-08] MEDS: meropenem 1,000 MG in sodium chloride 0.9% (plus) 50 ML 100 MG IV ×4 (00:44→23:49)
[2023-12-08] MEDS: heparin 5,000 unit/mL INJ 1 mL 5000 UNIT SUBCUT ×2 (03:45→16:46)
[2023-12-08] MEDS: Dianeal low Ca w/2.5% dex 2,000 mL Bag 2000 ML INTRAPERIT ×3 (04:35→19:40)
[2023-12-08] MEDS: clopidogrel 75 mg Tablet PO (05:13)
[2023-12-08] MEDS: aspirin 81 mg Chew Tablet PO (05:13)
[2023-12-08 06:50] LABS: Glucose Point of Care 139 mg/dL (70-110)
[2023-12-08 07:26] LABS: Basophils # 0.1 10^3/uL (0.0-0.1); Basophils % 0.9 %; Eosinophils # 0.7 10^3/uL (0.0-0.8); Eosinophils % 10.8 %; Lymphocytes # 0.6 10^3/uL (0.8-4.8); Lymphocytes % 9.7 %; Mean Corpuscular HGB Conc 31.9 g/dL (30-55); Mean Corpuscular Hemoglobin 28.8 pg (27-33); Mean Platelet Volume 12.3 fL (7.4-10.4); Monocytes # 0.6 10^3/uL (0.2-0.9); Monocytes % 9.7 %; Neutrophils # 4.42 10^3/uL (1.8-7.7); Neutrophils % 67.8 %; Nucleated Red Blood Cells % 0 %; Platelet Count 117 10^3/cmm (157-399); Red Cell Distribution Width 16.9 % (12.1-15.1); White Blood Count 6.51 10^3/uL (3.29-11.43)
[2023-12-08 08:02] LABS: Alanine Aminotransferase 42 U/L (0-41); Albumin Level 2.4 g/dL (3.5-5.2); Alkaline Phosphatase 257 U/L (40-130); Anion Gap 15.4 (5-19); Aspartate Amino Transferase 72 U/L (0-40); Blood Urea Nitrogen 71 mg/dL (6-20); C Reactive Protein 12.9 mg/L (0.0-4.9); Calcium 6.9 mg/dL (8.5-10.5); Carbon Dioxide 27 mmol/L (22-29); Chloride 104 mmol/L (98-107); Globulin 2.9 g/dL (1.3-4.6); Glomerular Filtration Rate 10.2 mL/min (90-130); Glucose 126 mg/dL (65-115); Magnesium 2.1 mg/dL (1.7-2.3); Osmolality Calculated 318 mOsm/kg (285-295); Phosphorus 5.9 mg/dL (2.5-4.5); Potassium 3.4 mmol/L (3.5-5.1); Sodium 143 mmol/L (136-145); Total Bilirubin 0.3 mg/dL (0.15-1.2); Total Protein 5.3 g/dL (6.6-8.7)
[2023-12-08 08:09] LABS: Creatinine Clr Calc Pharmacy 18.4889; Procalcitonin 2.64 ng/mL (0-0.5)
[2023-12-08 08:52] LABS: NT Pro B Type Natriuretic Pept 49885 pg/mL (0-125)
[2023-12-08] MEDS: nystatin 100,000 unit/mL UDC 5 mL 400000 UNIT PO ×4 (09:56→20:49)
[2023-12-08] MEDS: insulin glargine 100 units/1 mL 10 UNIT SUBCUT (09:56)
[2023-12-08] MEDS: pregabalin 100 mg Capsule 200 MG PO ×2 (09:56→14:20)
[2023-12-08 11:57] LABS: Glucose Point of Care 178 mg/dL (70-110)
--- NOTE | 2023-12-08 12:22 | PM.PN ---
Subjective Subjective: Patient was seen this morning, denies any fevers, no chills, no cough, no lightheadedness, dizziness, Vitals/I&O/Wt Last Vital Signs Temp 97.6 F 12/08/23 12:00 Pulse 84 12/08/23 12:00 Resp 18 12/08/23 12:00 BP 145/78 12/08/23 12:00 Pulse Ox 97 12/08/23 12:00 O2 Del Method Nasal Cannula 12/08/23 12:00 O2 Flow Rate 2 12/08/23 08:00 12/07/23 12/08/23 12/08/23 21:59 06:59 14:59 Intake Total 530 / 530 Balance 530 / 530 Weight last 48 hrs Weight 123.74 kg Weight 124.71 kg Physical Exam Const: COMMON NORMALS: no acute distress and patient oriented x3 Resp: COMMON NORMALS: normal respiratory effort, No retractions, No use of accessory muscles and clear to auscultation bilaterally AUSCULTATION: clear to auscultation bilaterally Cardio: COMMON NORMALS: regular rate, regular rhythm, S1 normal heart sound present and S2 normal heart sound present RATE: regular rate RHYTHM: regular rhythm HEART SOUNDS: S1 normal heart sound present and S2 normal heart sound present GI: COMMON NORMALS: Normal to inspection, nondistended, normoactive bowel sounds present and non-tender Extremity: COMMON NORMALS: no pedal edema Neuro: COMMON NORMALS: patient oriented x3 Psych: COMMON NORMALS: mental status grossly normal Data 12/08/23 07:09 12/08/23 07:09 A&P Assessment and plan (1) Syncope: (2) Diabetic foot ulcer: (3) Cellulitis of left foot: (4) ESRD (end stage renal disease) on dialysis: (5) CKD (chronic kidney disease): Qualifiers: Chronic kidney disease stage: stage 5, not on chronic dialysis Qualified Code(s): N18.5 - Chronic kidney disease, stage 5 (6) Type 2 diabetes mellitus: Qualifiers: Diabetes mellitus complication status: with other specified complication Diabetes mellitus middle or intermediate school principal insulin use: with middle or intermediate school principal use Qualified Code(s): E11.69 - Type 2 diabetes mellitus with other specified complication; Z79.4 - salvage determiner (current) use of insulin (7) Hypoglycemia: (8) Bradycardia: (9) Fluid overload: (10) CHF exacerbation: Plan Syncope, resolved -Serial EKGs, serial troponins, telemetry monitoring -CT head within normal limits -Cardiac echo within normal limits -Telemetry monitoring -Carotid artery ultrasound within normal limits -Orthostatic vitals Bradycardia, resolved -Serial EKGs, serial troponins, telemetry monitoring -Potentially related to beta-sharif, hold -Potential related to hyperglycemia, monitor Hypoglycemia, resolving -Etiology unclear potentially related to Levemir, sliding scale ? Low-dose sliding scale Left foot diabetic ulcer, with cellulitis with osteomyelitis -ESR 89, CRP 40, blood cultures -CT left lower extremity/foot CT/CT foot LT wo con* [id number] IMPRESSION: 1. Chronic diffuse osteomyelitis in the calcaneus. 2. Large dermal ulcer overlying the calcaneus. 3. Chronic Achilles tendon tear. ? Continue vancomycin, meropenem -Consult podiatry -patient declines L BKA, given evidence of diffuse osteomyelitis in the calcaneus, has been on multiple IV abx regimens in the past, discussed morbidity and mortality associated with infection/osteomyelitis, however patient declines, will medically manage, will speak to infectious disease about IV versus p.o. antibiotics Fluid overload/chf exacerbation -has recieved lasix -will get PD dialysis End-stage renal disease continue peritoneal dialysis, consult nephrology NSTEMI, serial EKGs, troponins, telemetry monitoring, no chest pain complaints Hyperkalemia management, monitor Left lateral thigh fluid-filled blister, measuring 3 x 3 cm round, monitor Attestations Medical Necessity Statement*: Patient requires hospitalization for left calcaneal osteomyelitis, IV antibiotics, Diagnoses Syncope R55 Diabetic foot ulcer E11.621; L97.509 Cellulitis of left foot L03.116 ESRD (end stage renal disease) on dialysis N18.6; Z99.2 CKD (chronic kidney disease) N18.5 Chronic kidney disease stage: stage 5, not on chronic dialysis Type 2 diabetes mellitus with other specified complication, with long-term current use of insulin E11.69; Z79.4 Diabetes mellitus complication status: with other specified complication Diabetes mellitus middle or intermediate school principal insulin use: with shelter use Hypoglycemia E16.2 Bradycardia R00.1 Fluid overload E87.70 CHF exacerbation I50.9
[2023-12-08] MEDS: insulin lispro 100 unit/1 mL SUBCUT ×2 (12:37→17:56)
--- NOTE | 2023-12-08 12:51 | P.PN_ITS ---
Subjective 2 Subjective: doing well Medications: Reviewed: Yes Vitals/I&O/Wt Last Vital Signs Temp 97.6 F 12/08/23 12:00 Pulse 84 12/08/23 12:00 Resp 18 12/08/23 12:00 BP 145/78 12/08/23 12:00 Pulse Ox 97 12/08/23 12:00 O2 Del Method Nasal Cannula 12/08/23 12:00 O2 Flow Rate 2 12/08/23 08:00 12/07/23 12/08/23 12/08/23 21:59 06:59 14:59 Intake Total 530 / 530 Balance 530 / 530 Weight last 48 hrs Weight 123.74 kg Weight 124.71 kg Physical Exam 2 Narrative: Patient is awake and alert no acute distress S1-S2 regular rate rhythm Lungs clear per report Pedal edema left foot ulcer Data 12/08/23 07:09 12/08/23 07:09 A&P Assessment and plan (1) ESRD on peritoneal dialysis: Plan 1. End-stage renal disease: On peritoneal dialysis-patient doing 1 exchange of 2.5 solution with a dwell time of 4 hours - getting 4 exchanges 6-hour apart using 2.5% solutions -Also add nystatin as patient is on antibiotics -as prophylaxis to prevent fungal peritonitis risk with -Continue 2 g sodium restriction and 1500 mill fluid restriction 2. History of hypertension: Restart home meds 3. Left foot wound ulcer, management per primary team, on antibiotics, seen by podiatry , recommended BKA but pt declined 4. Anemia, hemoglobin 13, monitor 5. hyperkalemia : s/p kayexylate , low K diet Patient evaluated using audiovisual cart. Time spent 20 minutes. Attestations 2 Medical Necessity Statement*: per candida Coding Level of Care Code Acute Code for Chg Fwd Diagnoses ESRD on peritoneal dialysis N18.6; Z99.2
[2023-12-08] MEDS: pantoprazole 40 mg SDV IVP (16:47)
[2023-12-08 17:02] LABS: Glucose Point of Care 151 mg/dL (70-110)
[2023-12-08] MEDS: vancomycin 1,000 MG in sodium chloride 0.9% 250 ML 250 MG IV (17:53)
--- NOTE | 2023-12-08 19:43 | P.PN_ITS ---
Subjective 2 Subjective: Patient seen bedside this evening, has moved up from cardiac stepdown to the [facility], dressing to left foot is clean, dry and intact. Patient denies any subjective nausea, vomiting, fever, chills, shortness of breath or chest pain. Vitals/I&O/Wt Last Vital Signs Temp 97.6 F 12/08/23 16:00 Pulse 79 12/08/23 16:00 Resp 18 12/08/23 16:00 BP 132/75 12/08/23 16:00 Pulse Ox 98 12/08/23 15:46 O2 Del Method Nasal Cannula 12/08/23 15:46 O2 Flow Rate 2 12/08/23 08:00 12/08/23 12/08/23 12/08/23 06:59 14:59 22:59 Intake Total 1010 / 1010 540 / 1550 Balance 1010 / 1010 540 / 1550 Weight last 48 hrs Weight 272 lb 12.8 oz Weight 274 lb 15 oz Physical Exam 2 Narrative: Patient is alert and oriented ?3 and in no acute distress. The following is a focused bilateral lower extremity exam. Patient is wearing bilateral Charcot restraint orthotic walker. VASCULAR: Dorsalis pedis and posterior tibial arteries palpable. Capillary refill time less than 3 seconds to the distal hallux bilaterally. Calf is supple and nontender proximally and distally. Decreased pedal hair growth, pitting edema to the lower extremities. NEUROLOGICAL: Protective sensation intact 0/10 sites, tested with [place] Esdras monofilament to bilateral feet. DERMATOLOGICAL: Full-thickness wound with exposed calcaneus left posterior heel measures 5.5 cm x 7 cm x 1.5 cm, calcaneal tuberosity is exposed and able to be directly probed, demonstrates poor density, serous drainage, no malodor. Largely granular base, 90% granular 10% fibrotic, there is no periwound erythema, drainage is serous and clear. MUSCULOSKELETAL: No soft tissue crepitus upon palpation at the left lower extremity. No pain to palpation or with evaluation of wound secondary to neuropathy. Hypermobility at ankle secondary to loss of Achilles attachment able to dorsiflex beyond 15 degrees left ankle. 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 CT scan shows findings of chronic osteomyelitis involving the entire calcaneus. Not a candidate for calcanectomy as he would lose the entire calcaneus and not have a plantigrade foot, he is already lost his insertion of the Achilles tendon due to bony erosions at the Achilles insertion site and has a calcaneal. Utilizes a OWLS boot to the left lower extremity for offloading at home. Also has a PODUS boot to offload heel, he has this at home as well. He sees wound care actively who has been assisting in managing his chronic wound with chronic osteomyelitis. Patient has been recommended for a left below-knee amputation multiple times throughout previous hospitalizations. I recommended to the patient a below-knee amputation as a more functional means of surgically managing his infection, this would provide better source control and a more functional amputation level to be fitted with prosthesis. Patient wishes to avoid below-knee amputation at this time, states that should the infection threaten his life at some point down the road that he would be agreeable to an amputation at that point but will hold off for now. -Patient declines BKA at this time -Performed wound debridement as above -Primary dressing Hydrofera Blue followed by Kerlix and Lobo wrap will continue to perform dressing change daily during his hospitalization. -Okay for discharge from podiatry standpoint in regards to his left foot wound, recommend following up with wound care clinic outpatient after discharge Interim update with dressing change 12/08/2023. Wound surprisingly looks exceptionally healthy at this time has largely granular base, there is no periwound erythema, serous drainage without purulence. Will continue with daily dressing change. 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
[2023-12-08 20:43] LABS: Glucose Point of Care 173 mg/dL (70-110)
[2023-12-08] MEDS: atorvastatin 40 mg Tablet PO (20:49)
[2023-12-09] VITALS (7 sets, daily range): BP systolic 138–153; BP diastolic 71–82; PULSE 82–85; RESP 18; TEMP 36.3–36.6; O2SAT 98–99
[2023-12-09] MEDS: Dianeal low Ca w/2.5% dex 2,000 mL Bag 2000 ML INTRAPERIT (02:30)
[2023-12-09] MEDS: heparin 5,000 unit/mL INJ 1 mL 5000 UNIT SUBCUT (04:55)
[2023-12-09] MEDS: aspirin 81 mg Chew Tablet PO (05:00)
[2023-12-09] MEDS: clopidogrel 75 mg Tablet PO (05:00)
[2023-12-09 05:20] LABS: Basophils # 0.1 10^3/uL (0.0-0.1); Basophils % 1.1 %; Eosinophils # 1.3 10^3/uL (0.0-0.8); Eosinophils % 15.4 %; Hematocrit 39.2 % (37-53); Lymphocytes # 0.5 10^3/uL (0.8-4.8); Lymphocytes % 5.6 %; Mean Corpuscular HGB Conc 30.9 g/dL (30-55); Mean Corpuscular Hemoglobin 28.3 pg (27-33); Mean Corpuscular Volume 91.6 fl (82-101); Monocytes # 0.7 10^3/uL (0.2-0.9); Monocytes % 8.5 %; Neutrophils # 5.69 10^3/uL (1.8-7.7); Neutrophils % 68.3 %; Nucleated Red Blood Cells % 0 %; Platelet Count 114 10^3/cmm (157-399); Red Blood Count 4.28 10^6/uL (3.85-5.65); Red Cell Distribution Width 16.8 % (12.1-15.1); White Blood Count 8.33 10^3/uL (3.29-11.43)
[2023-12-09 05:41] LABS: Alanine Aminotransferase 30 U/L (0-41); Albumin Level 2.3 g/dL (3.5-5.2); Alkaline Phosphatase 269 U/L (40-130); Anion Gap 14.4 (5-19); Aspartate Amino Transferase 44 U/L (0-40); Blood Urea Nitrogen 69 mg/dL (6-20); C Reactive Protein 14.4 mg/L (0.0-4.9); Calcium 7.1 mg/dL (8.5-10.5); Carbon Dioxide 26 mmol/L (22-29); Chloride 102 mmol/L (98-107); Creatinine Clr Calc Pharmacy 19.4011; Globulin 3.6 g/dL (1.3-4.6); Glomerular Filtration Rate 10.8 mL/min (90-130); Glucose 192 mg/dL (65-115); Magnesium 2.1 mg/dL (1.7-2.3); Osmolality Calculated 313 mOsm/kg (285-295); Potassium 3.4 mmol/L (3.5-5.1); Sodium 139 mmol/L (136-145); Total Bilirubin 0.3 mg/dL (0.15-1.2); Total Protein 5.9 g/dL (6.6-8.7)
[2023-12-09 05:48] LABS: Procalcitonin 2.07 ng/mL (0-0.5)
[2023-12-09 06:52] LABS: Glucose Point of Care 194 mg/dL (70-110)
--- NOTE | 2023-12-09 09:31 | P.DS_ITS ---
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 (2) ESRD (end stage renal disease) on dialysis: Status: Acute (3) Chronic osteomyelitis: Status: Acute (4) 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 Currently patient is alert oriented x 3, following all commands, he tells me that for the last few days, he has had recurrent syncopal episodes, not associated with position, no strokelike symptoms no facial droop no slurring of words, no seizure-like episodes, patient's daughter at bedside has witnessed them, she tells me that it is always if he falls asleep, denies any preceding chest pain or palpitations. Patient tells me that he was going to wound care this morning,, however he missed this point as he passed out, EMS was called out to his home by family members, blood sugar on arrival was 36 he was found to have sinus bradycardia, was given D50, Decadron, his blood sugar has improved to 150s, he had reported feeling weak and dizzy and lightheaded and short of breath. Patient presented to [facility] for syncope, no recurrent episodes during hospitalization no acute events during his hospitalization CT head within normal limits cardiac echo within normal limits, carotid artery ultrasound normal limits telemetry within normal limits For his left foot diabetic ulcer with cellulitis with osteomyelitis, Left foot diabetic ulcer, with cellulitis with osteomyelitis -ESR 89, CRP 40, blood cultures -CT left lower extremity/foot CT/CT foot LT wo con* [id number] IMPRESSION: 1. Chronic diffuse osteomyelitis in the calcaneus. 2. Large dermal ulcer overlying the calcaneus. 3. Chronic Achilles tendon tear. ? Was managed with broad-spectrum IV antibiotics during his hospitalization, vancomycin, meropenem -Consult podiatry, podiatry performed bedside debridement, recommended left BKA however patient declined -patient declines L BKA, given evidence of diffuse osteomyelitis in the calcaneus, has been on multiple IV abx regimens in the past, discussed morbidity and mortality associated with infection/osteomyelitis, however patient declines, will medically manage, spoke to infectious disease as this is chronic osteomyelitis, patient refused his left BKA, patient's not been on multiple rounds of IV antibiotics recommended p.o. antibiotics on discharge -- On discharge had a detailed discussion with patient about monitoring for fevers, chills worsening diabetic foot infection, as this could be indicators of sepsis, severe wound infection, necrotizing fasciitis, please come back to the emergency room -On discharge I again had a detailed discussion about his left foot cellulitis, diabetic ulcer osteomyelitis of strongly recommended for a left BKA however patient declines. I discussed with him the morbidity and mortality associated with severe diabetic foot infections, chronic osteomyelitis including but not limited to sepsis, septic shock, necrotizing fasciitis, deep tissue infection, vomiting or mortality associated, he voiced understanding, all questions answered, for now he declines, he tells me that the only way that he would ever have a left below-knee amputation is if he was on the verge of , and what would save his life is a left below-knee amputation, then he would agree to proceed. I was explicit and honest with him that if ever came to that, he would have a high risk of morbidity or mortality, high risk of complications, he understands this, voiced understanding, al questions answered, however still d eclines left below-knee amputation -Will discharge on 7 days of p.o. antibiotics During his hospitalization patient also had fluid overload requiring inpatient diuresis, and peritoneal dialysis Physical Exam Const: COMMON NORMALS: no acute distress and patient oriented x3 Resp: COMMON NORMALS: normal respiratory effort, No retractions, No use of accessory muscles and clear to auscultation bilaterally AUSCULTATION: clear to auscultation bilaterally Cardio: COMMON NORMALS: regular rate, regular rhythm, S1 normal heart sound present and S2 normal heart sound present RATE: regular rate RHYTHM: regular rhythm HEART SOUNDS: S1 normal heart sound present and S2 normal heart sound present GI: COMMON NORMALS: Normal to inspection, nondistended, normoactive bowel sounds present and non-tender Extremity: COMMON NORMALS: no pedal edema Neuro: COMMON NORMALS: patient oriented x3 Psych: COMMON NORMALS: mental status grossly normal Discharge Data Studies Completed and Pending Completed Studies During Hospitalization Category Date Time Status CT foot LT wo con* [id number] Routine Cat Scan 12/04/23 16:[address] head wo con* [id number] Routine Cat Scan 12/04/23 16:00 Completed XR chest 1V portable [id number] Stat Exams 12/04/23 11:36 Completed CV carotid duplex BI* [id number] Routine Ultrasound 12/04/23 14:26 Completed CV. echo complete* [id number] Routine Ultrasound 12/04/23 14:26 Completed Pending at discharge Category Date Time Status Blood Culture Routine Lab 12/04/23 17:43 Results C Reactive Protein AM LABS Lab 12/10/23 04:00 Ordered C Reactive Protein AM LABS Lab 12/11/23 04:00 Ordered Complete Blood Count w/Auto AM LABS Lab 12/10/23 04:00 Ordered Complete Blood Count w/Auto AM LABS Lab 12/11/23 04:00 Ordered Comprehensive Metabolic Panel AM LABS Lab 12/10/23 04:00 Ordered Comprehensive Metabolic Panel AM LABS Lab 12/11/23 04:00 Ordered Magnesium AM LABS Lab 12/10/23 04:00 Ordered Magnesium AM LABS Lab 12/11/23 04:00 Ordered Phosphorus AM LABS Lab 12/10/23 04:00 Ordered Phosphorus AM LABS Lab 12/11/23 04:00 Ordered Procalcitonin AM LABS Lab 12/10/23 04:00 Ordered Procalcitonin AM LABS Lab 12/11/23 04:00 Ordered Urinalysis Routine Lab 12/04/23 16:00 Uncollected Radiology Impressions Chest X-Ray 12/04/23 11:36 IMPRESSION: 1. Probable chronic or recurrent pulmonary edema, similar to findings on 01/18/2023. Infection cannot be excluded. 2. Right pleural effusion. Foot CT 12/04/23 16:00 IMPRESSION: 1. Chronic diffuse osteomyelitis in the calcaneus. 2. Large dermal ulcer overlying the calcaneus. 3. Chronic Achilles tendon tear. Head CT 12/04/23 16:00 IMPRESSION: No acute intracranial abnormality. Laboratory Results WBC 8.33 10^3/uL (3.29-11.43) 12/09/23 04:51 RBC 4.28 10^6/uL (3.85-5.65) 12/09/23 04:51 Hgb 12.10 g/dL (11.27-16.99) 12/09/23 04:51 Hct 39.2 % (37-53) 12/09/23 04:51 MCV 91.6 fl (82-101) 12/09/23 04:51 MCH 28.3 pg (27-33) 12/09/23 04:51 MCHC 30.9 g/dL (30-55) 12/09/23 04:51 RDW 16.8 % (12.1-15.1) H 12/09/23 04:51 Plt Count 114 10^3/cmm (157-399) L 12/09/23 04:51 MPV 13.0 fL (7.4-10.4) H 12/09/23 04:51 Neut % (Auto) 68.3 % 12/09/23 04:51 Lymph % (Auto) 5.6 % 12/09/23 04:51 [place] % (Auto) 8.5 % 12/09/23 04:51 Eos % (Auto) 15.4 % 12/09/23 04:51 Baso % (Auto) 1.1 % 12/09/23 04:51 Neut # (Auto) 5.69 10^3/uL (1.8-7.7) 12/09/23 04:51 Lymph # (Auto) 0.5 10^3/uL (0.8-4.8) L 12/09/23 04:51 [place] # (Auto) 0.7 10^3/uL (0.2-0.9) 12/09/23 04:51 Eos # (Auto) 1.3 10^3/uL (0.0-0.8) H 12/09/23 04:51 Baso # (Auto) 0.1 10^3/uL (0.0-0.1) 12/09/23 04:51 Nucleated RBC % (auto) 0 % 12/09/23 04:51 Nucleated RBCs # 0.0 /100WBC 12/09/23 04:51 ESR 89 mm/hr (0-10) H 12/04/23 12:20 Sodium 139 mmol/L (136-145) 12/09/23 04:51 Potassium 3.4 mmol/L (3.5-5.1) L 12/09/23 04:51 Chloride 102 mmol/L (98-107) 12/09/23 04:51 Carbon Dioxide 26 mmol/L (22-29) 12/09/23 04:51 Anion Gap 14.4 (5-19) 12/09/23 04:51 BUN 69 mg/dL (6-20) H 12/09/23 04:51 Creatinine 5.5 mg/dL (0.7-1.2) H 12/09/23 04:51 GFR Calculation 10.8 mL/min (90-130) L 12/09/23 04:51 Glucose 192 mg/dL (65-115) H 12/09/23 04:51 POC Glucose 194 mg/dL (70-110) H 12/09/23 06:47 Estimat Average Glucose 151 12/04/23 12:20 Hemoglobin A1c 6.9 % (4.0-6.0) H 12/04/23 12:20 Calculated Osmolality 313 mOsm/kg (285-295) H 12/09/23 04:51 Lactic Acid 0.6 mmol/L (0.5-2.2) 12/04/23 12:20 Calcium 7.1 mg/dL (8.5-10.5) L 12/09/23 04:51 Phosphorus 6.0 mg/dL (2.5-4.5) H 12/09/23 04:51 Magnesium 2.1 mg/dL (1.7-2.3) 12/09/23 04:51 Total Bilirubin 0.3 mg/dL (0.15-1.2) 12/09/23 04:51 AST 44 U/L (0-40) H 12/09/23 04:51 ALT 30 U/L (0-41) 12/09/23 04:51 Alkaline Phosphatase 269 U/L (40-130) H 12/09/23 04:51 Ammonia 17 umol/L (16-60) 12/04/23 14:41 Creatine Kinase 66 U/L (39-308) 12/04/23 14:41 Troponin T Baseline 135 ng/L (0-15) H* 12/04/23 12:20 Troponin T 120 Minute 137.8 ng/L (0-15) H 12/04/23 14:41 Delta Troponin T 2.8 ABS# (0-10) 12/04/23 14:41 Troponin T Hi Sens 6Hr 129.5 ng/L (0-15) H 12/04/23 18:40 Troponin T Hi Sens 6Hr Delta -5.5 ng/L (0-12) L 12/04/23 18:40 C-Reactive Protein 14.4 mg/L (0.0-4.9) H 12/09/23 04:51 NT-Pro-B Natriuret Pep 63221 pg/mL (0-125) H 12/08/23 07:09 Total Protein 5.9 g/dL (6.6-8.7) L 12/09/23 04:51 Albumin 2.3 g/dL (3.5-5.2) L 12/09/23 04:51 Globulin 3.6 g/dL (1.3-4.6) 12/09/23 04:51 Triglycerides 104 mg/dL (0-150) 12/04/23 12:20 Cholesterol 209 mg/dL (0-200) H 12/04/23 12:20 LDL Cholesterol, Calc 153 mg/dL (50-129) H 12/04/23 12:20 HDL Cholesterol 35 mg/dL (60-100) L 12/04/23 12:20 LDL/HDL Ratio 4.37 RATIO (0.00-3.22) H 12/04/23 12:20 Cholesterol/HDL Ratio 5.97 mg/dL (1.0-5.00) H 12/04/23 12:20 Procalcitonin 2.07 ng/mL (0-0.5) H 12/09/23 04:51 TSH 3.50 uIU/mL (0.27-4.20) 12/04/23 12:20 Vitals Last Vital Signs Temp 97.7 F 12/09/23 07:15 Pulse 82 03/11/24 07:15 Resp 18 12/09/23 07:15 BP 144/71 12/09/23 07:15 Pulse Ox 98 12/09/23 07:15 O2 Del Method Nasal Cannula 12/09/23 07:15 O2 Flow Rate 2 12/08/23 20:00 Discharge Plan Discharge Patient Disposition: Home Condition: Stable Prescriptions: New amoxicillin-pot clavulanate 875-125 mg tablet 1 tab PO BID 7 Days Qty: 14 0RF doxycycline hyclate 100 mg tablet 100 mg PO BID 7 Days Qty: 14 0RF Continued gabapentin 300 mg capsule 300 mg PO BEDTIME atorvastatin 40 mg tablet 40 mg PO BEDTIME albuterol sulfate 90 mcg/actuation HFA aerosol inhaler 1 puff inhalation Q6H PRN (Reason: shortness of breath or wheezing) pregabalin [Lyrica] 200 mg capsule 200 mg PO TID famotidine 20 mg tablet 20 mg PO BID aspirin 81 mg Tablet,Chewable 81 mg PO QAM Qty: 60 0RF insulin lispro [Humalog KwikPen Insulin] 100 unit/mL insulin pen See Rx Instructions .ROUTE .COMPLEX Qty: 15 0RF Rx Instructions: Inject, subcut, 3 times daily, after meals, based on sliding scale provided amlodipine 10 mg tablet 10 mg PO QAM furosemide [Lasix] 20 mg tablet 20 - 40 mg PO DAILY PRN (Reason: Edema) isosorbide mononitrate 30 mg tablet extended release 24 hr 30 mg PO QAM clopidogrel [Plavix] 75 mg tablet 75 mg PO QAM docusate sodium 100 mg capsule 100 mg PO BID PRN (Reason: Constipation) omeprazole 40 mg capsule,delayed release(DR/EC) 40 mg PO DAILY ergocalciferol (vitamin D2) [Vitamin D2] 1,250 mcg (50,000 unit) capsule See Rx Instructions .ROUTE .COMPLEX Rx Instructions: 1,250 mcg orally every 7 days on Saturday. RenaPlex-D 800 mcg-12.5 mg -2,000 unit tablet 1 tab PO DAILY Advair Diskus 100-50 mcg/dose blister with device 1 inh inhalation BID PRN (Reason: Shortness Of Breath) Changed Levemir FlexPen 100 unit/mL (3 mL) insulin pen 10 unit SUBCUT QAM 30 Days Qty: 3 0RF Discontinued metoprolol tartrate 100 mg tablet 100 mg PO BID hydralazine 10 mg tablet 10 mg PO BID PRN (Reason: unknown) No Action (DME) Dexcom G6 Sensor Device See Rx Instructions .Route Qty: 9 3RF Rx Instructions: As directed (DME) Dexcom G6 Therapeutic Case Manager Misc See Rx Instructions .Route Qty: 1 0RF Rx Instructions: As directed (DME) Dexcom G6 Transmitter Device See Rx Instructions .Route Qty: 3 3RF Rx Instructions: As directed (DME) Podus Boot to the Left See Rx Instructions .Route .MEDSUPPLY Qty: 1 0RF Rx Instructions: As directed J P & O- Patient is in Hospital Cardiac Stepdown Unit room 105-1 Discharge Orders: Discharge Order (Routine); Ordered 12/09/23 Ordered By: Luciano Mariscal Referrals: Vidhi Gillette FNP [Primary Care Provider] - Neymar Allen DPM [Physician] - 1 month Discharge Diet: Cardiac Discharge Activity: Resume usual activity Patient Instructions: Opioid Safety Activity Restrictions/Additional Instructions: - If you develop any fevers, chills, worsening foot diabetic ulcer please go to the emergency room immediately Discharge Attestations Time Spent in Discharge Care*: greater than 30 min Status at Discharge: Cognitive status at discharge: cognitively intact , Behavioral status at discharge: cooperative , Quality Metrics Clinical Quality Measures [ No reported AMI, CVA or VTE this stay] Coding Level of Care Code 39780 Total time (in minutes) for Discharge: 45 Diagnoses Type 2 diabetes mellitus with other specified complication, with long-term current use of insulin E11.69; Z79.4 Diabetes mellitus complication status: with other specified complication 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
--- NOTE | 2023-12-09 09:36 | P.PN_ITS ---
Subjective 2 Subjective: doing well Medications: Reviewed: Yes Vitals/I&O/Wt Last Vital Signs Temp 97.8 F 12/09/23 15:37 Pulse 84 12/09/23 15:37 Resp 18 12/09/23 15:37 BP 153/82 12/09/23 15:37 Pulse Ox 99 12/09/23 15:37 O2 Del Method Nasal Cannula 12/09/23 11:56 O2 Flow Rate 2 12/09/23 11:29 12/09/23 12/09/23 12/09/23 06:59 14:59 22:59 Intake Total 770 / 2320 790 / 790 Output Total 700 / 700 Balance 70 / 1620 790 / 790 Weight last 48 hrs Weight 122.606 kg Weight 123.74 kg Physical Exam 2 Narrative: Patient is awake and alert no acute distress S1-S2 regular rate rhythm Lungs clear per report Pedal edema left foot ulcer Data 12/09/23 04:51 12/09/23 04:51 Micro: Microbiology 12/04/23 17:47 Blood Culture - Final Blood NO GROWTH AFTER 5 DAYS 12/04/23 17:43 Blood Culture - Final Blood NO GROWTH AFTER 5 DAYS A&P Assessment and plan (1) ESRD on peritoneal dialysis: Plan 1. End-stage renal disease: On peritoneal dialysis-patient doing 1 exchange of 2.5 solution with a dwell time of 4 hours - getting 4 exchanges 6-hour apart using 2.5% solutions -Also add nystatin as patient is on antibiotics -as prophylaxis to prevent fungal peritonitis risk with -Continue 2 g sodium restriction and 1500 mill fluid restriction 2. History of hypertension: Restart home meds 3. Left foot wound ulcer, management per primary team, on antibiotics, seen by podiatry , recommended BKA but pt declined 4. Anemia, hemoglobin 13, monitor 5. hyperkalemia : s/p kayexylate , low K diet Patient evaluated using audiovisual cart. Time spent 20 minutes. Attestations 2 Medical Necessity Statement*: per medicine Coding Level of Care Code Acute Code for Chg Fwd Diagnoses ESRD on peritoneal dialysis N18.6; Z99.2
[2023-12-09] MEDS: potassium chloride ER 20 mEq Tablet PO (09:47)
[2023-12-09] MEDS: insulin lispro 100 unit/1 mL SUBCUT ×2 (09:48→12:19)
[2023-12-09] MEDS: meropenem 1,000 MG in sodium chloride 0.9% (plus) 50 ML 100 MG IV (09:48)
[2023-12-09] MEDS: nystatin 100,000 unit/mL UDC 5 mL 400000 UNIT PO (09:54)
[2023-12-09] MEDS: insulin glargine 100 units/1 mL 10 UNIT SUBCUT (09:54)
[2023-12-09 11:16] LABS: Glucose Point of Care 283 mg/dL (70-110)
== END 2023-12-09 15:38 | disposition home or self-care (01) | DRG 629 ==
LOC: ER 13:53 → ER IP 16:48 → CSU 18:42 → MEDSURG 12-05 20:39
PROVIDERS: Hospitalist; Admitting Provider Family Medicine; Emergency Provider Family Medicine; PCP Nurse Practitioner Family; Visit Provider Family Medicine
DX: E11.69 Type 2 diabetes mellitus with other specified complication (principal); I13.2 Hypertensive heart and chronic kidney disease with heart failure and with stage 5 chronic kidney disease, or end stage renal disease; L97.424 Non-pressure chronic ulcer of left heel and midfoot with necrosis of bone; I50.32 Chronic diastolic (congestive) heart failure; M86.672 Other chronic osteomyelitis, left ankle and foot; L03.116 Cellulitis of left lower limb; E11.22 Type 2 diabetes mellitus with diabetic chronic kidney disease; E11.649 Type 2 diabetes mellitus with hypoglycemia without coma; E11.51 Type 2 diabetes mellitus with diabetic peripheral angiopathy without gangrene; E11.42 Type 2 diabetes mellitus with diabetic polyneuropathy; E11.621 Type 2 diabetes mellitus with foot ulcer; N18.6 End stage renal disease; R55 Syncope and collapse; E78.5 Hyperlipidemia, unspecified; R00.1 Bradycardia, unspecified; D63.1 Anemia in chronic kidney disease; S70.322A Blister (nonthermal), left thigh, initial encounter; X58.XXXA Exposure to other specified factors, initial encounter; E87.5 Hyperkalemia; Z79.82 Long term (current) use of aspirin; Z79.4 Long term (current) use of insulin; Z99.2 Dependence on renal dialysis; Z86.16 Personal history of COVID-19; I25.2 Old myocardial infarction; Z87.891 Personal history of nicotine dependence
CPT/HCPCS: 36415; 36416; 70450; 71045; 73700; 80048; 80053; 80061; 82140; 82550; 82962; 83036; 83605; 83735; 83880; 84100; 84145; 84443; 84484; 85025; 85651; 86140; 87040; 93005; 93306; 93880; 96365; 96372; 96376; 97110; 97162; 97166; 97530; 99285; C9113; J0612; J1644; J1815; J1940; J2185; J3370; J7050; J7799; Q3014

== ENCOUNTER → 2023-12-12 13:36 | Outpatient (BNVA) | payer MEDICARE, MEDICAID, SELFPAY | PROVIDERS: PCP Nurse Practitioner Family; Visit Provider Thoracic Surgery (Cardiothoracic Vascular Surgery) | DX: E11.52 Type 2 diabetes mellitus with diabetic peripheral angiopathy with gangrene (principal); E11.621 Type 2 diabetes mellitus with foot ulcer; L97.821 Non-pressure chronic ulcer of other part of left lower leg limited to breakdown of skin; L89.623 Pressure ulcer of left heel, stage 3 | CPT/HCPCS: 97597; 97598; A6220; A6251 ==

== ENCOUNTER → 2023-12-19 13:56 | Outpatient (BNVA) | payer MEDICARE, MEDICAID, SELFPAY | PROVIDERS: PCP Nurse Practitioner Family; Visit Provider Thoracic Surgery (Cardiothoracic Vascular Surgery) | DX: E11.52 Type 2 diabetes mellitus with diabetic peripheral angiopathy with gangrene (principal); E11.621 Type 2 diabetes mellitus with foot ulcer; L89.623 Pressure ulcer of left heel, stage 3; S80.822A Blister (nonthermal), left lower leg, initial encounter; X58.XXXA Exposure to other specified factors, initial encounter | CPT/HCPCS: 97597; 97598; A6252 ==

== ENCOUNTER → 2023-12-24 13:47 | Outpatient (BNVA) | payer OTHER, MEDICAID, SELFPAY | PROVIDERS: PCP Nurse Practitioner Family; Visit Provider Surgery | DX: N18.5 Chronic kidney disease, stage 5 (principal) | CPT/HCPCS: 99214 ==

== ENCOUNTER → 2023-12-26 08:36 | Outpatient (BNVA) | payer OTHER, MEDICAID, SELFPAY | PROVIDERS: PCP Nurse Practitioner Family; Visit Provider Thoracic Surgery (Cardiothoracic Vascular Surgery) | DX: E11.52 Type 2 diabetes mellitus with diabetic peripheral angiopathy with gangrene (principal); E11.622 Type 2 diabetes mellitus with other skin ulcer; L97.421 Non-pressure chronic ulcer of left heel and midfoot limited to breakdown of skin; E11.621 Type 2 diabetes mellitus with foot ulcer; L89.623 Pressure ulcer of left heel, stage 3 | CPT/HCPCS: 11750; 97597; 97598; A6212; A6252 ==

== ENCOUNTER → 2024-01-02 09:09 | Outpatient (BNVA) | payer OTHER, MEDICAID, SELFPAY | PROVIDERS: PCP Nurse Practitioner Family; Visit Provider Thoracic Surgery (Cardiothoracic Vascular Surgery) | DX: E11.52 Type 2 diabetes mellitus with diabetic peripheral angiopathy with gangrene (principal); E11.621 Type 2 diabetes mellitus with foot ulcer; L89.623 Pressure ulcer of left heel, stage 3; Z09 Encounter for follow-up examination after completed treatment for conditions other than malignant neoplasm | CPT/HCPCS: 97597; 97598; A6252 ==

== ENCOUNTER → 2024-01-09 09:31 | Outpatient (BNVA) | payer OTHER, MEDICAID, SELFPAY | PROVIDERS: PCP Nurse Practitioner Family; Visit Provider Thoracic Surgery (Cardiothoracic Vascular Surgery) | DX: E11.52 Type 2 diabetes mellitus with diabetic peripheral angiopathy with gangrene (principal); E11.621 Type 2 diabetes mellitus with foot ulcer; L89.623 Pressure ulcer of left heel, stage 3 | CPT/HCPCS: 97597; 97598; A6252 ==

== ENCOUNTER → 2024-01-16 09:40 | Outpatient (BNVA) | payer OTHER, MEDICAID, SELFPAY | PROVIDERS: PCP Nurse Practitioner Family; Visit Provider Thoracic Surgery (Cardiothoracic Vascular Surgery) | DX: E11.52 Type 2 diabetes mellitus with diabetic peripheral angiopathy with gangrene (principal); E11.621 Type 2 diabetes mellitus with foot ulcer; L89.623 Pressure ulcer of left heel, stage 3 | CPT/HCPCS: 97597; 97598; A6252 ==

== ENCOUNTER → 2024-01-23 10:04 | Outpatient (BNVA) | payer OTHER, MEDICAID, SELFPAY | PROVIDERS: PCP Nurse Practitioner Family; Visit Provider Thoracic Surgery (Cardiothoracic Vascular Surgery) | DX: E11.52 Type 2 diabetes mellitus with diabetic peripheral angiopathy with gangrene (principal); E11.621 Type 2 diabetes mellitus with foot ulcer; L89.623 Pressure ulcer of left heel, stage 3 | CPT/HCPCS: 97597; 97598; 97605; A6237; A6250 ==

== ENCOUNTER → 2024-01-27 10:29 | Outpatient (BNVA) | payer OTHER, MEDICAID, SELFPAY | PROVIDERS: PCP Nurse Practitioner Family; Visit Provider Nurse Practitioner Family | DX: E11.52 Type 2 diabetes mellitus with diabetic peripheral angiopathy with gangrene (principal); E11.621 Type 2 diabetes mellitus with foot ulcer; L89.623 Pressure ulcer of left heel, stage 3 | CPT/HCPCS: 97605; A6237; A6250 ==

== ENCOUNTER → 2024-01-30 08:48 | Outpatient (BNVA) | payer OTHER, MEDICAID, SELFPAY | PROVIDERS: PCP Nurse Practitioner Family; Visit Provider Thoracic Surgery (Cardiothoracic Vascular Surgery) | DX: E11.52 Type 2 diabetes mellitus with diabetic peripheral angiopathy with gangrene (principal); E11.621 Type 2 diabetes mellitus with foot ulcer; L89.623 Pressure ulcer of left heel, stage 3 | CPT/HCPCS: 97597; 97598; 97605; A6237; A6250 ==

== ENCOUNTER → 2024-02-03 11:16 | Outpatient (BNVA) | payer OTHER, MEDICAID, SELFPAY | PROVIDERS: PCP Nurse Practitioner Family; Visit Provider Nurse Practitioner Family | DX: E11.52 Type 2 diabetes mellitus with diabetic peripheral angiopathy with gangrene (principal); E11.621 Type 2 diabetes mellitus with foot ulcer; L89.623 Pressure ulcer of left heel, stage 3 | CPT/HCPCS: 97605; A6237; A6250 ==

== ENCOUNTER → 2024-02-06 08:44 | Outpatient (BNVA) | payer OTHER, MEDICAID, SELFPAY | PROVIDERS: PCP Nurse Practitioner Family; Visit Provider Thoracic Surgery (Cardiothoracic Vascular Surgery) | DX: E11.52 Type 2 diabetes mellitus with diabetic peripheral angiopathy with gangrene (principal); E11.621 Type 2 diabetes mellitus with foot ulcer; L97.421 Non-pressure chronic ulcer of left heel and midfoot limited to breakdown of skin | CPT/HCPCS: 97597; 97598; A6237; A6250 ==

== ENCOUNTER → 2024-02-10 14:25 | Outpatient (BNVA) | payer OTHER, MEDICAID, SELFPAY | PROVIDERS: PCP Nurse Practitioner Family; Visit Provider Nurse Practitioner Family | DX: E11.621 Type 2 diabetes mellitus with foot ulcer (principal); L89.623 Pressure ulcer of left heel, stage 3; M86.472 Chronic osteomyelitis with draining sinus, left ankle and foot | CPT/HCPCS: 97605; A6237; A6250 ==

== ENCOUNTER → 2024-02-13 08:11 | Outpatient (BNVA) | payer OTHER, MEDICAID, SELFPAY | PROVIDERS: PCP Nurse Practitioner Family; Visit Provider Thoracic Surgery (Cardiothoracic Vascular Surgery) | DX: E11.52 Type 2 diabetes mellitus with diabetic peripheral angiopathy with gangrene (principal); E11.621 Type 2 diabetes mellitus with foot ulcer; L89.623 Pressure ulcer of left heel, stage 3 | CPT/HCPCS: 97597; A6237; A6250 ==

== ENCOUNTER → 2024-02-20 09:57 | Outpatient (BNVA) | payer OTHER, MEDICAID, SELFPAY | PROVIDERS: PCP Nurse Practitioner Family; Visit Provider Thoracic Surgery (Cardiothoracic Vascular Surgery) | DX: E11.52 Type 2 diabetes mellitus with diabetic peripheral angiopathy with gangrene (principal); E11.621 Type 2 diabetes mellitus with foot ulcer; L89.623 Pressure ulcer of left heel, stage 3 | CPT/HCPCS: 97597; 97605 ==

== ENCOUNTER → 2024-02-27 12:52 | Outpatient (BNVA) | payer OTHER, MEDICAID, SELFPAY | PROVIDERS: PCP Nurse Practitioner Family; Visit Provider Thoracic Surgery (Cardiothoracic Vascular Surgery) | DX: E11.52 Type 2 diabetes mellitus with diabetic peripheral angiopathy with gangrene (principal); E11.621 Type 2 diabetes mellitus with foot ulcer; L89.623 Pressure ulcer of left heel, stage 3 | CPT/HCPCS: 97597; 97605; A6237; A6250 ==

== ENCOUNTER → 2024-03-05 10:57 | Outpatient (BNVA) | payer OTHER, MEDICAID, SELFPAY | PROVIDERS: PCP Nurse Practitioner Family; Visit Provider Thoracic Surgery (Cardiothoracic Vascular Surgery) | DX: E11.52 Type 2 diabetes mellitus with diabetic peripheral angiopathy with gangrene (principal); E11.621 Type 2 diabetes mellitus with foot ulcer; L97.421 Non-pressure chronic ulcer of left heel and midfoot limited to breakdown of skin | CPT/HCPCS: 97597; 97598; A6237; A6250 ==

== ENCOUNTER → 2024-03-12 10:08 | Outpatient (BNVA) | payer OTHER, MEDICAID, SELFPAY | PROVIDERS: PCP Nurse Practitioner Family; Visit Provider Thoracic Surgery (Cardiothoracic Vascular Surgery) | DX: E11.52 Type 2 diabetes mellitus with diabetic peripheral angiopathy with gangrene (principal); E11.621 Type 2 diabetes mellitus with foot ulcer; L89.623 Pressure ulcer of left heel, stage 3 | CPT/HCPCS: 97597; 97598 ==

== ENCOUNTER → 2024-03-19 10:23 | Outpatient (BNVA) | payer OTHER, MEDICAID, SELFPAY | PROVIDERS: PCP Nurse Practitioner Family; Visit Provider Thoracic Surgery (Cardiothoracic Vascular Surgery) | DX: E11.52 Type 2 diabetes mellitus with diabetic peripheral angiopathy with gangrene (principal); E11.621 Type 2 diabetes mellitus with foot ulcer; L89.623 Pressure ulcer of left heel, stage 3 | CPT/HCPCS: 97597; 97598; A6252 ==

== ENCOUNTER → 2024-03-26 10:55 | Outpatient (BNVA) | payer OTHER, MEDICAID, SELFPAY | PROVIDERS: PCP Nurse Practitioner Family; Visit Provider Thoracic Surgery (Cardiothoracic Vascular Surgery) | DX: E11.52 Type 2 diabetes mellitus with diabetic peripheral angiopathy with gangrene (principal); E11.621 Type 2 diabetes mellitus with foot ulcer; L89.623 Pressure ulcer of left heel, stage 3 | CPT/HCPCS: 97597; 97598; A6237; A6250 ==

== ENCOUNTER → 2024-04-09 10:18 | Outpatient (BNVA) | payer OTHER, MEDICAID, SELFPAY | PROVIDERS: PCP Nurse Practitioner Family; Visit Provider Thoracic Surgery (Cardiothoracic Vascular Surgery) | DX: E11.52 Type 2 diabetes mellitus with diabetic peripheral angiopathy with gangrene (principal); E11.621 Type 2 diabetes mellitus with foot ulcer; L89.623 Pressure ulcer of left heel, stage 3 | CPT/HCPCS: 97597; 97598; A6237 ==

== ENCOUNTER → 2024-04-22 13:45 | Outpatient (BNVA) | payer OTHER, MEDICAID, SELFPAY | PROVIDERS: PCP Nurse Practitioner Family; Visit Provider Thoracic Surgery (Cardiothoracic Vascular Surgery) | DX: E11.52 Type 2 diabetes mellitus with diabetic peripheral angiopathy with gangrene (principal); E11.621 Type 2 diabetes mellitus with foot ulcer; L89.623 Pressure ulcer of left heel, stage 3 | CPT/HCPCS: 97597; 97598; 97605; A6237; A6250 ==

== ENCOUNTER 2024-04-28 09:15 | Observation (INO) | payer OTHER, MEDICAID, SELFPAY ==
[2024-04-28] VITALS (8 sets, daily range): BP systolic 123–136; BP diastolic 62–75; PULSE 61–85; RESP 16–18; TEMP 36.3–36.6; O2SAT 92–95
--- NOTE | 2024-04-28 09:30 | XRR_ITS ---
PROCEDURE INFORMATION: Exam: XR Chest Exam date and time: 04/28/2024 9:32 AM Age: 58 years old Clinical indication: Other: Swelling TECHNIQUE: Imaging protocol: Radiologic exam of the chest. Views: 1 view. COMPARISON: CR XR chest 1V portable [id number] 12/04/2023 12:23 PM FINDINGS: Lungs: Limited inspiration. Focal airspace opacity in the left base was present on the prior examination and may represent scarring. Pleural spaces: Unremarkable. No pleural effusion. No pneumothorax. Heart/Mediastinum: Unremarkable. No cardiomegaly. Diaphragm: There is mild elevation left hemidiaphragm. Bones/joints: No acute findings. XR/XR chest 1V portable [id number] IMPRESSION: Limited inspiration. Focal airspace opacity in the left base was present on the prior examination and may represent scarring.
--- NOTE | 2024-04-28 09:34 | CT_ITS ---
WS: [id number] CT HEAD TECHNIQUE: Noncontrast CT of the head obtained from the skullbase to the vertex. CLINICAL INFORMATION: weakness, leg numbness COMPARISON: None. DLP: 1120.[address] scans at [facility] use at least one of these dose optimization techniques: automated e xposure control; mA and/or kV adjustment per patient size (includes targeted exams where dose is matc hed to clinical indication); or iterative reconstruction. FINDINGS: No evidence of intracranial hemorrhage or mass effect. Ventricular system and basal cisterns are tovar nt. Moderate small vessel changes with moderate parenchymal volume loss. No extra-axial fluid collect ions. No evidence of mass or mass effect. Vascular calcification. Paranasal sinuses and mastoid air cells are well aerated. .Normal visualized soft tissues. CT/CT head wo con* [id number] IMPRESSION: 1. No evidence of intracranial hemorrhage or mass effect. 2. No acute intracranial findings.
--- NOTE | 2024-04-28 09:34 | CT_ITS ---
WS: [id number] CT LUMBAR SPINE TECHNIQUE: Noncontrast CT of the lumbar spine with coronal and sagittal reformatted images. CLINICAL INFORMATION: bilateral leg weakness/numbness COMPARISON: None. DLP: 1253.[address] scans at [facility] use at least one of these dose optimization techniques: automated e xposure control; mA and/or kV adjustment per patient size (includes targeted exams where dose is matc hed to clinical indication); or iterative reconstruction. FINDINGS: Mild lumbar curve. Moderate spondylitic changes. No acute fractures. L1-L2: Mild disc osteophyte complex. Mild facet arthropathy. Spinal canal and foramen are patent. L2-3: Disc osteophyte complex with mild foraminal narrowing. Moderate facet arthropathy. L3-L4: Disc osteophyte complex with mild LEFT greater than RIGHT foraminal narrowing. Moderate facet arthropathy. L4-L5: Disc osteophyte complex with mild central canal stenosis. Advanced facet arthropathy ligamentu m flavum hypertrophy. Mild bilateral foraminal narrowing. L5-S1: Disc osteophyte complex slight impingement on the traversing RIGHT greater than LEFT S1 nerve roots. Mild bilateral foraminal narrowing with advanced facet arthropathy at this level. A few prominent periaortic lymph nodes the largest measuring 1.4 cm. This can be followed up with CT abdomen pelvis. Adrenal glands appear normal. Normal caliber abdominal aorta. Urine distended bladder . CT/CT lumbar spine wo con* [id number] IMPRESSION: 1. Moderate spondylitic changes. No acute fractures. 2. Mild central canal stenosis L4-5. 3. A few prominent periaortic lymph nodes the largest measuring 1.4 cm. This c an be followed up with CT abdomen pelvis
--- NOTE | 2024-04-28 09:35 | ECG_ITS ---
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 Measurements Intervals Moose Rate: 82 P: 9 TX: 173 QRS: 151 QRSD: 123 T: 21 QT: 370 QTc: 432 Interpretive Statements SINUS RHYTHM RIGHT AXIS DEVIATION [QRS AXIS > 100] RIGHT BUNDLE BRANCH BLOCK [120+ ms QRS DURATION, UPRIGHT V1, 40+ ms S IN I/aVL/V4/V5/V6] POSSIBLE ANTERIOR MYOCARDIAL INFARCTION , PROBABLY OLD [30 ms Q WAVE IN V3/V4, OR R < 0.2 mV IN V4] Compared to ECG 12/04/2023 16:06:13 Myocardial infarct finding now present Sinus bradycardia no longer present First degree AV block no longer present Electronically Signed On 04-29-2024 6:35:21 CDT by Laurita Love M.D. [email or web address]
--- NOTE | 2024-04-28 09:36 | ED_ITS ---
HPI - Weakness 2 General: Chief complaint: Extremity Problem,Nontraumatic Stated complaint: Leg Numbness Time Seen by Provider: 04/28/24 09:19 Source: patient Mode of arrival: EMS Limitations: no limitations History of Present Illness: Patient is a 58-year-old male with an extensive past medical history including type 2 diabetes, non-STEMI, chronic osteomyelitis, CKD on daily dialysis, PVD, chronic lower extremity ulcers, diabetic neuropathy, CHF (last echo November 2023 EF 50-55%), hypoxia, hyperlipidemia here via EMS for complaints of weakness to his bilateral lower extremities. Patient receives home health services secondary to the wounds to his lower extremities. According to home health documentation patient began complaining of weakness around 04/21 to the point where he was not able to get out of bed on his own. Patient states he normally can put my boots on and walk with a walker but states he is not able to do this secondary to weakness in his legs. He states they feel heavy . Patient states he has a history of diabetic neuropathy and normally has numbness to his bilateral legs. He also follows with wound care for his leg wounds. He has been recommended amputation to L LE in the past due to his chronic osteomyelitis but has declined. Patient is not having any chest pain or difficulty breathing. He does not complain of any facial drooping, slurred speech, weakness to his arms. States he is not having pain anywhere. I spoke to one of patient's wound care nurses, Jazmyn, who states patient has been declining over the past week. States he has been too weak to get out of bed and has been soiling himself (patient denies this). Jazmyn questions whether he has been doing his peritoneal dialysis. Patient states he missed yesterday but otherwise has been. She states his wounds to his left lower leg are are baseline. MD Complaint: focal weakness (bilateral LEs), numbness and difficulty walking Onset (ago): day(s) Duration: constant Location: LLE and RLE Migration: none Severity: severe Quality: numbness and other (heaviness) Relieving factors: none Exacerbating factors: none Associated symptoms: Reports no associated symptoms; Denies chest pain, chills, confusion, dysuria, fever(s), headache(s), nausea, syncope or vomiting Review of Systems 2 Const: Denies: fever(s), chills, body aches, fatigue or malaise Eyes: Denies: change in vision or blurry vision Card: Denies: chest pain, palpitations, irregular heart rhythm, lightheadedness, syncope or dyspnea on exertion Resp: Denies: dyspnea, productive cough or pain on inspiration GI: Denies: abdominal pain, nausea, vomiting, heartburn or diarrhea : Denies: difficulty urinating or dysuria Musc: Reports: extremity swelling (chronic) and other (states his bilateral LEs feel heavy ); Denies: neck pain, back pain, joint pain, joint swelling, joint redness or joint warmth Skin/Breast: Reports: erythema (to L LE that he states is chronic); Denies: rash Neuro: Reports: numbness in extremities (chronic LE neuropathy), weakness in extremities (legs) and difficulty walking; Denies: headache(s), frequent falls, dizziness, vertigo, confusion, behavioral changes, Slurred speech present, difficulty communicating thoughts or seizure- like activity PFSH ED 2 PFSH: Medical History (Updated 04/28/24 @ 14:21 by VAN Jefferson) Anemia Elevated troponin Peritoneal dialysis catheter in situ History of cardiovascular stress test 11/2022 areas of fixed events with very small areas of reversible defect, suggesting myocardial scarring with possible gurjit-infarction ischemia History of echocardiogram 12/2022 EF50%, tech difficult study ESRD (end stage renal disease) on dialysis COVID (~12/2022) NSTEMI (non-ST elevated myocardial infarction) Aspiration pneumonia PVD (peripheral vascular disease) Chronic ulcer of right foot with fat layer exposed 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 Diabetic peripheral neuropathy associated with type 2 diabetes mellitus Congestive heart failure Type 2 diabetes mellitus Diabetic ulcer of foot associated with diabetes mellitus due to underlying condition, with fat layer exposed Chronic osteomyelitis 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 Uncontrolled type 2 diabetes with neuropathy Hyperlipidemia Onychomycosis of nail of digit of hand Neuropathy Surgical History (Updated 04/28/24 @ 13:31 by Mary Bailey MD) History of insertion of tunneled central venous catheter (CVC) with port H/O circumcision H/O colonoscopy 7 yrs ago Status post debridement of ulcer of heel Family History Brother Cancer Sister Lung disease Mother Heart failure Father Chronic kidney failure Denies family history of Anesthesia complication Bleeding disorder Social History Smoking and tobacco/nicotine status: former use of tobacco/nicotine Second hand smoke exposure: No Alcohol intake: never Substance/Drug Use: never Adopted: No Lives independently: Yes Marital status: Single Current occupational status: disabled Physical Exam 2 Const: COMMON NORMALS: no acute distress, patient oriented x3, no limitations and alert GENERAL APPEARANCE: cooperative and appears older than stated age ORIENTATION/CONSCIOUSNESS: Yes awake, Yes oriented to person, Yes oriented to place and Yes oriented to time OTHER: chronically ill appearing HENMT: COMMON NORMALS: normocephalic and atraumatic HEAD & SCALP: normal to inspection, normocephalic and atraumatic FACE & SINUS: normal facial exam TEETH & GINGIVA: Yes caries and Yes poor dentition Eye: COMMON NORMALS: Equal, round and reactive pupils present and EOMs intact bilaterally GENERAL EYE: appearance normal, both eyes and all related structures and normal light reflex PUPIL: Yes Equal, round and reactive pupils present DIRECT OPHTHALMOSCOPY: Yes normal light reflex Neck/C-Spine: COMMON NORMALS: full ROM, no lymphadenopathy, supple and no meningeal signs Chest: COMMONS NORMALS: normal inspection of the chest Resp: COMMON NORMALS: normal respiratory effort and clear to auscultation bilaterally AUSCULTATION: clear to auscultation bilaterally Cardio: COMMON NORMALS: regular rate, regular rhythm and Peripheral pulses 2+ throughout RATE: regular rate RHYTHM: regular rhythm HEART SOUNDS: M urmur heart sound present (reports known cardiac murmur) PERIPHERAL PULSES: P eripheral pulses 2+ throughout GI: COMMON NORMALS: Normal to inspection, nondistended, normoactive bowel sounds present, Soft to palpation, non-tender, No hepatosplenomegaly present and no masses PALPATION: Yes Soft to palpation and Yes No hepatosplenomegaly present : COMMON NORMALS: Yes no CVA tenderness BLADDER/KIDNEY EXAM: Yes no CVA tenderness Back/Pelvis: COMMON NORMALS: no CVA tenderness and thoracic and lumbar spine normal to inspection Extremity: COMMON NORMALS: capillary refill normal NARRATIVE EXTREMITY EXAM: bilateral LE chronic skin changes consistent with his known PVD; he has dressed wound vac wounds to L LE involving his chronic osteomyelitis of his calcaneus; there is erythema to L LE that patient states is normal; hypertropic skin/nails; peripheral pulses intact; reports chronic bilateral neuropathy thus sensation is decreased spoke to his wound care nurse and she states his wounds are all at baseline without any recent worsening reporting weakness to bilateral legs-cannot raise either leg off the bed (later during repeat assessment he is able to move lower extremities to roll over onto his sides so I can examine sacral skin) GENERAL: Yes normal exam except as noted Neuro: COMMON NORMALS: patient oriented x3 SENSORIUM/ORIENTATION: Yes alert, Yes oriented to person, Yes oriented to place and Yes oriented to time MENINGEAL SIGNS: Yes no meningeal signs COORDINATION/BALANCE: [id number] test normal SPEECH: speech normal GAIT: Yes Unable to assess gait C OORDINATION: [id number] test normal Skin: NARRATIVE SKIN EXAM: L LE chronic wounds/wound vac; chronic calcaneal osteomyelitis stage I sacral skin ulcer Course 2 Vital Signs: Vital signs: Vital Signs Temperature 97.8 F 04/28/24 09:16 Pulse Rate 79 04/28/24 13:30 Blood Pressure 133/72 04/28/24 13:30 Pulse Oximetry 94 04/28/24 13:30 Oxygen Delivery Me thod Room Air 04/28/24 13:30 MDM - Weakness Medical Decision Making Patient is a 58-year-old male with an extensive past medical history here for concerns of weakness over the past week. Home health nurses and wound care nurses state patient has had decline over the past week to the point where he is not able to get out of bed on his own. They state he has soiled himself in bed. Patient complains of bilateral leg weakness during my exam. He does have chronic bilateral neuropathy. He did mention some difficulty with urination. Will go ahead and obtain MRI imaging of his lumbar spine. I spoke to hospitalist Dr. Bailey for admission as he is unable to care for himself at home and lives alone. Dr. Ng aware of patient and agrees with need for hospitalization. Patient did not receive his peritoneal dialysis yesterday or today. His vital signs are stable. Blood work is consistent with his known diagnoses including end-stage renal disease and CHF. Medical Records I reviewed the patient's medical records. Lab Data I reviewed the patient's lab results. 04/28/24 09:40 04/28/24 09:40 Radiology Impressions Chest X-Ray 04/28/24 09:30 IMPRESSION: Limited inspiration. Focal airspace opacity in the left base was present on the prior examination and may represent scarring. Head CT 04/28/24 09:34 IMPRESSION: 1. No evidence of intracranial hemorrhage or mass effect. 2. No acute intracranial findings. Lumbar Spine CT 04/28/24 09:34 IMPRESSION: 1. Moderate spondylitic changes. No acute fractures. 2. Mild central canal stenosis L4-5. 3. A few prominent periaortic lymph nodes the largest measuring 1.4 cm. This can be followed up with CT abdomen pelvis Laboratory Results WBC 9.60 10^3/uL (3.29-11.43) 04/28/24 09:40 RBC 4.34 10^6/uL (3.85-5.65) 04/28/24 09:40 Hgb 12.60 g/dL (11.27-16.99) 04/28/24 09:40 Hct 39.0 % (37-53) 04/28/24 09:40 MCV 89.9 fl (82-101) 04/28/24 09:40 MCH 29.0 pg (27-33) 04/28/24 09:40 MCHC 32.3 g/dL (30-55) 04/28/24 09:40 RDW 14.0 % (12.1-15.1) 04/28/24 09:40 Plt Count 191 10^3/cmm (157-399) 04/28/24 09:40 MPV 12.5 fL (7.4-10.4) H 04/28/24 09:40 Neut % (Auto) 79.4 % 04/28/24 09:40 Lymph % (Auto) 6.9 % 04/28/24 09:40 [place] % (Auto) 9.0 % 04/28/24 09:40 Eos % (Auto) 2.2 % 04/28/24 09:40 Baso % (Auto) 0.8 % 04/28/24 09:40 Neut # (Auto) 7.63 10^3/uL (1.8-7.7) 04/28/24 09:40 Lymph # (Auto) 0.7 10^3/uL (0.8-4.8) L 04/28/24 09:40 [place] # (Auto) 0.9 10^3/uL (0.2-0.9) 04/28/24 09:40 Eos # (Auto) 0.2 10^3/uL (0.0-0.8) 04/28/24 09:40 Baso # (Auto) 0.1 10^3/uL (0.0-0.1) 04/28/24 09:40 Nucleated RBC % (auto) 0 % 04/28/24 09:40 Nucleated RBCs # 0.0 /100WBC 04/28/24 09:40 Sodium 136 mmol/L (136-145) 04/28/24 09:40 Potassium 5.4 mmol/L (3.5-5.1) H 04/28/24 09:40 Chloride 106 mmol/L (98-107) 04/28/24 09:40 Carbon Dioxide 17 mmol/L (22-29) L 04/28/24 09:40 Anion Gap 18.4 (5-19) 04/28/24 09:40 BUN 70 mg/dL (6-20) H 04/28/24 09:40 Creatinine 6.1 mg/dL (0.7-1.2) H* 04/28/24 09:40 GFR Calculation 9.6 mL/min (90-130) L 04/28/24 09:40 Glucose 159 mg/dL (65-115) H 04/28/24 09:40 Calculated Osmolality 306 mOsm/kg (285-295) H 04/28/24 09:40 Calcium 7.3 mg/dL (8.5-10.5) L 04/28/24 09:40 Phosphorus 4.3 mg/dL (2.5-4.5) 04/28/24 09:40 Magnesium 2.4 mg/dL (1.7-2.3) H 04/28/24 09:40 Total Bilirubin 0.4 mg/dL (0.15-1.2) 04/28/24 09:40 AST 19 U/L (0-40) 04/28/24 09:40 ALT 11 U/L (0-41) 04/28/24 09:40 Alkaline Phosphatase 203 U/L (40-130) H 04/28/24 09:40 Creatine Kinase 64 U/L (39-308) 04/28/24 09:40 Creatine Kinase Cancelled 04/28/24 09:40 Troponin T Baseline 148 ng/L (0-15) H* 04/28/24 09:40 Troponin T 120 Minute 149.4 ng/L (0-15) H 04/28/24 12:16 Delta Troponin T 1.4 ABS# (0-10) 04/28/24 12:16 C-Reactive Protein 60.9 mg/L (0.0-4.9) H 04/28/24 09:40 NT-Pro-B Natriuret Pep 76951 pg/mL (0-125) H 04/28/24 09:40 Total Protein 6.5 g/dL (6.6-8.7) L 04/28/24 09:40 Albumin 2.5 g/dL (3.5-5.2) L 04/28/24 09:40 Globulin 4.0 g/dL (1.3-4.6) 04/28/24 09:40 Urine Color Yellow (Yellow) 04/28/24 10:59 Urine Appearance Clear (CLEAR) 04/28/24 10:59 Urine pH 5.0 (5-7) 04/28/24 10:59 Ur Specific [place] 1.014 (1.005-1.030) 04/28/24 10:59 Urine Protein 2+ (Negative) A 04/28/24 10:59 Urine Glucose (UA) Negative (Normal) 04/28/24 10:59 Urine Ketones Negative (Negative) 04/28/24 10:59 Urine Blood Neg (Negative) 04/28/24 10:59 Urine Nitrate Negative (Negative) 04/28/24 10:59 Urine Bilirubin Negative (Negative) 04/28/24 10:59 Urine Urobilinogen 1.0 mg/dL (Negative) 04/28/24 10:59 Ur Leukocyte Esterase Negative (Negative) 04/28/24 10:59 Urine RBC 0-2 /hpf (0-2) 04/28/24 10:59 Urine WBC 0-5 /hpf (0-5) 04/28/24 10:59 Ur Squamous Epith Cells 0-5 /hpf (0-5) 04/28/24 10:59 Amorphous Sediment Not Reportable 04/28/24 10:59 Urine Bacteria None seen /hpf (NONE) 04/28/24 10:59 Hyaline Casts 0.81 /lpf 04/28/24 10:59 All radiology interpretation(s) finalized by discharge Discharge Plan Discharge Patient Disposition: Placed in Observation Admit Provider: Mary Bailey Clinical Impression: Type 2 diabetes mellitus, Congestive heart failure, Diabetic peripheral neuropathy associated with type 2 diabetes mellitus, Weakness of both lower extremities, Peritoneal dialysis catheter in situ, ESRD (end stage renal disease) on dialysis Coding Level of Care Code ED Stock Tracer for Blaise Beckett
[2024-04-28 09:49] LABS: Basophils # 0.1 10^3/uL (0.0-0.1); Basophils % 0.8 %; Eosinophils # 0.2 10^3/uL (0.0-0.8); Eosinophils % 2.2 %; Lymphocytes # 0.7 10^3/uL (0.8-4.8); Lymphocytes % 6.9 %; Mean Corpuscular HGB Conc 32.3 g/dL (30-55); Mean Corpuscular Volume 89.9 fl (82-101); Mean Platelet Volume 12.5 fL (7.4-10.4); Monocytes # 0.9 10^3/uL (0.2-0.9); Neutrophils # 7.63 10^3/uL (1.8-7.7); Neutrophils % 79.4 %; Nucleated Red Blood Cells % 0 %; Platelet Count 191 10^3/cmm (157-399); Red Blood Count 4.34 10^6/uL (3.85-5.65)
[2024-04-28 10:12] LABS: Alanine Aminotransferase 11 U/L (0-41); Albumin Level 2.5 g/dL (3.5-5.2); Alkaline Phosphatase 203 U/L (40-130); Anion Gap 18.4 (5-19); Aspartate Amino Transferase 19 U/L (0-40); Blood Urea Nitrogen 70 mg/dL (6-20); Calcium 7.3 mg/dL (8.5-10.5); Carbon Dioxide 17 mmol/L (22-29); Chloride 106 mmol/L (98-107); Creatine Phosphokinase 64 U/L (39-308); Creatinine Clr Calc Pharmacy 16.7884; Glomerular Filtration Rate 9.6 mL/min (90-130); Glucose 159 mg/dL (65-115); Osmolality Calculated 306 mOsm/kg (285-295); Potassium 5.4 mmol/L (3.5-5.1); Sodium 136 mmol/L (136-145); Total Bilirubin 0.4 mg/dL (0.15-1.2); Total Protein 6.5 g/dL (6.6-8.7)
[2024-04-28 10:36] LABS: NT Pro B Type Natriuretic Pept 63237 pg/mL (0-125)
[2024-04-28 10:42] LABS: Magnesium 2.4 mg/dL (1.7-2.3); Phosphorus 4.3 mg/dL (2.5-4.5)
[2024-04-28 10:43] LABS: Troponin(5th) Baseline 148 ng/L (0-15)
--- NOTE | 2024-04-28 11:03 | MR_ITS ---
WS: [id number] MRI LUMBAR SPINE NONCONTRAST HISTORY: leg weakness, fecal incontinence, difficulty w urination COMPARISON: CT lumbar spine 04/28/2024 TECHNIQUE: Sagittal and axial multisequence imaging is submitted. Study is compromised by motion and patient's body habitus. Patient was unable to remain still for thi s examination due to pain. Slight retrolisthesis of L5. Disc spaces are mildly desiccated throughout the lumbar spine. No marrow edema or fracture. Conus terminates normally at L1-2 disc level. T12-L1: Small LEFT paracentral disc protrusion. No stenosis. L1-L2: Mild disc bulging with a shallow LEFT paracentral disc protrusion no significant stenosis. Mil d facet arthritis. L2-L3: Mild annular disc bulging with facet and ligamentum flavum hypertrophy. Mild encroachment upon the ventral thecal sac. Mild subarticular recess stenosis. L3-L4: Mild annular disc bulging with ligamentum flavum and facet arthritis. Mild central and bilater al subarticular recess stenosis. L4-L5: Diffuse annular disc bulging with small annular fissures. Moderate ligamentum flavum and facet arthritis. Small vertebral body osteophytes. Combination of findings is resulting in mild central st enosis with mild subarticular recess and foraminal stenosis, slightly greater on the RIGHT. L5-S1: Large central disc protrusion with osteophytic ridging. There is disc and osteophyte encroachm ent upon the ventral thecal sac. Moderate central with severe bilateral subarticular recess and zoran inal stenosis. There is disc contacting the L5 and S1 nerve roots at this level. Paravertebral soft tissues are negative. MR/MR lumbar spine wo con* [id number] IMPRESSION: 1. Multilevel degenerative disc disease and facet arthropathy. 2. L5-S1: Large central disc osteophyte with facet and ligamentum flavum hyper trophy. Moderate central with severe bilateral subarticular recess and foramina l stenosis. 3. L4-5: Mild central, subarticular recess and foraminal stenosis, RIGHT great er than LEFT. 4. L2-3 and L3-4: Mild central and subarticular recess encroachment. 5. Shallow LEFT paracentral disc protrusions at T12-L1 and L1-2.
[2024-04-28 11:12] LABS: Charge for UA Resulting for Rev
[2024-04-28 11:21] LABS: Bilirubin Urine Negative (Negative); Glucose Urine UA Negative (Normal); Ketones Urine Negative (Negative); Leukocyte Esterase Urine Negative (Negative); Nitrate Urine Negative (Negative); Urine Appearance Clear (CLEAR); Urine Color Yellow (Yellow)
[2024-04-28 11:24] LABS: Bacteria Urine None Seen /hpf; RBC Urine 0-2 /hpf (0-2); WBC Urine 0-5 /hpf (0-5)
[2024-04-28 11:57] LABS: Hyaline Casts Urine 0.81 /lpf; Squamous Epithelial Cell Urine 0-5 /hpf (0-5)
[2024-04-28 11:58] LABS: Blood Urine Neg (Negative); Protein Urine 2+ (Negative); Specific Gravity, Urine 1.014 (1.005-1.030)
--- NOTE | 2024-04-28 12:20 | ECG_ITS ---
[facility] Test Date: 2024-04-28 Pat Name: Tim Robison Department: Room: Gender: Male Piccoloist: : 1965 Requested By: Marianne Marcelo Order Number: [id number] Iw[place] MD: Laurita Love M.D. Measurements Intervals [place] Rate: 80 P: 30 UT: 213 QRS: 145 QRSD: 123 T: 30 QT: 384 QTc: 445 Interpretive Statements SINUS RHYTHM WITH FIRST DEGREE AV BLOCK RIGHT AXIS DEVIATION [QRS AXIS > 100] RIGHT BUNDLE BRANCH BLOCK [120+ ms QRS DURATION, UPRIGHT V1, 40+ ms S IN I/aVL/V4/V5/V6] Compared to ECG 04/28/2024 09:52:08 First degree AV block now present Myocardial infarct finding no longer present Electronically Signed On 04-29-2024 6:36:41 CDT by Laurita Love M.D. [id number]
[2024-04-28 12:45] LABS: Troponin 5 2HR Delta 1.4 ABS# (0-10)
[2024-04-28 12:48] LABS: Troponin 5 2HR 149.4 ng/L (0-15)
--- NOTE | 2024-04-28 13:13 | PM.HP ---
Providers/Chief Complaint Admitting Physician: Mary Bailey MD Primary Care Provider: SERAFIN Reza Chief Complaint: Leg Numbness History of Present Illness Tim Robison is a 58 year old male with multiple chronic medical problems as outlined below who presented to the emergency room due to weakness and both of his lower extremities. He was seen by home care who recommended evaluation as he was not able to assist them with transfers or care as he often is able to. He says that the weakness started a couple of days ago and came on somewhat suddenly for him. Home health notes indicate weakness onset around the , about a week ago. He has known peripheral neuropathy involving hands and feet and he feels like the numbness in both of his legs has extended maybe to his knees making it more challenging for him to get up and stand. He has also noted increased weakness in his arms particularly with attempts to transfer from bed to chair. Some of this has been more gradual over a longer period of time but that impact to his ability to perform ADLs is what is new. He lives alone but his niece comes over in the evenings. She has had some personal challenges this week that she has had to attend to and has not been able to help as much as she usually does. Home health comes over and he also has wound care management. He missed his usual peritoneal dialysis yesterday because he was unable to get up to get the supplies. He says even with his walker he cannot stand up. No speech or swallowing difficulties. No confusion. He has spent most of his time lying down or sitting down the last few days. He does have a wound VAC in place to his left heel. No recent fevers. No nausea or vomiting. He has had some fecal incontinence which he attributes to not being able to get up to go to the bathroom. In the emergency room he was noted to have stool leakage that he was unaware of. He does not make much urine. Denies any new cough or difficulty breathing. No abdominal pain. He has had some increased edema but no orthopnea or PND. Home health nurses were concerned he may not have been doing his peritoneal dialysis for several days and their suggestions that he come to the emergency room for evaluation. After workup in the emergency room hospitalist were contacted for admission. Troponin, BNP and renal function were elevated but similar to values at prior evaluations. CRP was noted to be greater than most recent comparable values. There was concern for potential spinal cord pathology as patient was not able to move his legs on examination. MRI ordered but pending completion. Review of Systems General: Reports: Other (ROS as per HPI or as otherwise noted here) Medications/Allergies Home Medications Medication Instructions Recorded Confirmed Last Taken Type gabapentin 300 mg capsule 300 mg PO BEDTIME 10/11/20 04/28/24 04/27/24 History blood-glucose meter,continuous #1 ea 04/23/22 04/28/24 01/30/23 Rx (Dexcom G6 District Sales Coordinator) blood-glucose sensor (Dexcom G6 #9 ea 04/23/22 04/28/24 01/30/23 Rx Sensor device) blood-glucose transmitter (Dexcom #3 ea 04/23/22 04/28/24 01/30/23 Rx G6 Transmitter device) albuterol sulfate 90 mcg/actuation 1 puff inhalation Q6H PRN 11/29/22 04/28/24 01/30/23 History aerosol inhaler shortness of breath or wheezing atorvastatin 40 mg tablet 40 mg PO BEDTIME 11/29/22 04/28/24 04/27/24 History famotidine 20 mg tablet 20 mg PO BID 11/29/22 04/28/24 04/27/24 History pregabalin 200 mg capsule (Lyrica) 200 mg PO TID 11/29/22 04/28/24 04/27/24 History Podus Boot to the Left #1 ea 12/03/22 04/28/24 01/30/23 Rx aspirin 81 mg chewable tablet 81 mg PO QAM #60 tabs 12/06/22 04/28/24 04/27/24 Rx insulin lispro 100 unit/mL See Rx Instructions .Route 01/07/23 04/28/24 04/27/24 Rx subcutaneous pen (Humalog KwikPen .COMPLEX #15 mL (U-100) Insulin) clopidogrel 75 mg tablet (Plavix) 75 mg PO QAM 01/18/23 04/28/24 04/27/24 History docusate sodium 100 mg capsule 100 mg PO BID PRN Constipation 01/18/23 04/28/24 01/30/23 History amlodipine 10 mg tablet 10 mg PO QAM 01/30/23 04/28/24 04/27/24 History furosemide 20 mg tablet (Lasix) 20 - 40 mg PO DAILY PRN Edema 01/30/23 04/28/24 Unknown History ergocalciferol (vitamin D2) 1,250 See Rx Instructions .Route .COMPLEX 08/29/23 04/28/24 04/26/24 History mcg (50,000 unit) capsule (Vitamin D2) vit B,C-folic ac 800 mcg-zinc 12.5 1 tab PO DAILY 08/29/23 04/28/24 04/27/24 History mg-selen-D3 2,000 unit-vit E tablet (RenaPlex-D) fluticasone 100 mcg-salmeterol 50 1 inh inhalation BID PRN Shortness 12/04/23 04/28/24 Unknown History mcg/dose blistr powdr for Of Breath inhalation (Advair Diskus) insulin detemir U-100 100 unit/mL 10 unit (0.1 mL) SUBCUT QAM 30 12/09/23 04/28/24 04/27/24 Rx (3 mL) subcutaneous pen (Levemir days #3 mL FlexPen) metoprolol tartrate 100 mg tablet 100 mg PO BID 04/28/24 04/28/24 04/27/24 History patiromer calcium sorbitex 8.4 8.4 g PO DAILY 04/28/24 04/28/24 04/27/24 History gram oral powder packet (Veltassa) sevelamer carbonate 800 mg tablet 800 mg PO TID 04/28/24 04/28/24 04/27/24 History sodium bicarbonate 650 mg tablet 1,300 mg PO BID 04/28/24 04/28/24 04/27/24 History Allergies Allergy/AdvReac Type Severity Reaction Status Date / Time Iodinated Contrast Media Allergy ALGY-Hives Verified 12/24/23 13:55 PFSH Acute PFSH: Medical History (Updated 04/28/24 @ 20:12 by Mary Bailey MD) GERD (gastroesophageal reflux disease) TIA (transient ischemic attack) Hypertension Anemia Elevated troponin Peritoneal dialysis catheter in situ History of cardiovascular stress test 11/2022 areas of fixed events with very small areas of reversible defect, suggesting myocardial scarring with possible gurjit-infarction ischemia History of echocardiogram 12/2022 EF50%, tech difficult study ESRD (end stage renal disease) on dialysis COVID (~12/2022) NSTEMI (non-ST elevated myocardial infarction) Aspiration pneumonia PVD (peripheral vascular disease) Chronic ulcer of right foot with fat layer exposed 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 Diabetic peripheral neuropathy associated with type 2 diabetes mellitus Congestive heart failure Type 2 diabetes mellitus Diabetic ulcer of foot associated with diabetes mellitus due to underlying condition, with fat layer exposed Chronic osteomyelitis 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 Uncontrolled type 2 diabetes with neuropathy Hyperlipidemia Onychomycosis of nail of digit of hand Neuropathy Surgical History (Updated 04/28/24 @ 13:31 by Mary Bailey MD) History of insertion of tunneled central venous catheter (CVC) with port H/O circumcision H/O colonoscopy 7 yrs ago Status post debridement of ulcer of heel Family History Brother Cancer Sister Lung disease Mother Heart failure Father Chronic kidney failure Denies family history of Anesthesia complication Bleeding disorder Social History Smoking and tobacco/nicotine status: former use of tobacco/nicotine Second hand smoke exposure: No Alcohol intake: never Substance/Drug Use: never Adopted: No Lives independently: Yes Marital status: Single Current occupational status: disabled Vitals/I&O/Wt Last Vital Signs Temp 97.8 F 04/28/24 09:16 Pulse 84 04/28/24 11:00 BP 132/75 04/28/24 11:00 Pulse Ox 95 04/28/24 11:00 O2 Del Method Room Air 04/28/24 11:00 Weight last 48 hrs Weight 113.398 kg Physical Exam Narrative: Patient is awake and alert. Able to provide history. looks chronically ill. Mild bitemporal wasting noted. Extraocular movements are intact. No nystagmus. Nasopharynx is clear oropharynx with moist mucous membranes. Neck is supple. Lungs are clear to auscultation without any rales rhonchi or wheezes. Cardiovascular exam reveals slightly distant heart sounds but regular rhythm. Abdomen is soft nondistended, nontender. PD catheter is in place without any surrounding erythema. Mild erythema in the pannus and groin. Pitting edema noted to mid thigh bilaterally. Chronic stasis and skin changes noted to both legs extending all the way to the thigh left more so than right lower extremity. Wound VAC is in place to left foot. Left foot region is malodorous. in the sacral region the entire area is erythematous. There are multiple openings in the skin in a circular fashion varying from a couple of millimeters in diameter to a centimeter and a half by several millimeters all stage II with none currently involving subsuperficial layers that I can see. Muscle wasting noted both upper extremities very prominent in the thenar area. Handgrip is equal bilaterally. Muscle wasting noted to the feet though edema makes a bit more challenging to appreciate. Patient can push with feet more than he can pull back. Not able to raise legs off of bed but can move them around on bed. DTRs are equivocal. Toes are equivocal. Decrease in sensation to light touch/prick to knees in lower extremities, wrists upper extremities. No abnormal movements, speech clear, face symmetric. Data 04/28/24 09:40 04/28/24 09:40 Other Labs: Radiology Impressions Chest X-Ray 04/28/24 09:30 IMPRESSION: Limited inspiration. Focal airspace opacity in the left base was present on the prior examination and may represent scarring. Head CT 04/28/24 09:34 IMPRESSION: 1. No evidence of intracranial hemorrhage or mass effect. 2. No acute intracranial findings. Lumbar Spine CT 04/28/24 09:34 IMPRESSION: 1. Moderate spondylitic changes. No acute fractures. 2. Mild central canal stenosis L4-5. 3. A few prominent periaortic lymph nodes the largest measuring 1.4 cm. This can be followed up with CT abdomen pelvis Laboratory Results WBC 9.60 10^3/uL (3.29-11.43) 04/28/24 09:40 RBC 4.34 10^6/uL (3.85-5.65) 04/28/24 09:40 Hgb 12.60 g/dL (11.27-16.99) 04/28/24 09:40 Hct 39.0 % (37-53) 04/28/24 09:40 MCV 89.9 fl (82-101) 04/28/24 09:40 MCH 29.0 pg (27-33) 04/28/24 09:40 MCHC 32.3 g/dL (30-55) 04/28/24 09:40 RDW 14.0 % (12.1-15.1) 04/28/24 09:40 Plt Count 191 10^3/cmm (157-399) 04/28/24 09:40 MPV 12.5 fL (7.4-10.4) H 04/28/24 09:40 Neut % (Auto) 79.4 % 04/28/24 09:40 Lymph % (Auto) 6.9 % 04/28/24 09:40 Mccormick % (Auto) 9.0 % 04/28/24 09:40 Eos % (Auto) 2.2 % 04/28/24 09:40 Baso % (Auto) 0.8 % 04/28/24 09:40 Neut # (Auto) 7.63 10^3/uL (1.8-7.7) 04/28/24 09:40 Lymph # (Auto) 0.7 10^3/uL (0.8-4.8) L 04/28/24 09:40 Mccormick # (Auto) 0.9 10^3/uL (0.2-0.9) 04/28/24 09:40 Eos # (Auto) 0.2 10^3/uL (0.0-0.8) 04/28/24 09:40 Baso # (Auto) 0.1 10^3/uL (0.0-0.1) 04/28/24 09:40 Nucleated RBC % (auto) 0 % 04/28/24 09:40 Nucleated RBCs # 0.0 /100WBC 04/28/24 09:40 Sodium 136 mmol/L (136-145) 04/28/24 09:40 Potassium 5.4 mmol/L (3.5-5.1) H 04/28/24 09:40 Chloride 106 mmol/L (98-107) 04/28/24 09:40 Carbon Dioxide 17 mmol/L (22-29) L 04/28/24 09:40 Anion Gap 18.4 (5-19) 04/28/24 09:40 BUN 70 mg/dL (6-20) H 04/28/24 09:40 Creatinine 6.1 mg/dL (0.7-1.2) H* 04/28/24 09:40 GFR Calculation 9.6 mL/min (90-130) L 04/28/24 09:40 Glucose 159 mg/dL (65-115) H 04/28/24 09:40 Calculated Osmolality 306 mOsm/kg (285-295) H 04/28/24 09:40 Calcium 7.3 mg/dL (8.5-10.5) L 04/28/24 09:40 Phosphorus 4.3 mg/dL (2.5-4.5) 04/28/24 09:40 Magnesium 2.4 mg/dL (1.7-2.3) H 04/28/24 09:40 Total Bilirubin 0.4 mg/dL (0.15-1.2) 04/28/24 09:40 AST 19 U/L (0-40) 04/28/24 09:40 ALT 11 U/L (0-41) 04/28/24 09:40 Alkaline Phosphatase 203 U/L (40-130) H 04/28/24 09:40 Creatine Kinase 64 U/L (39-308) 04/28/24 09:40 Creatine Kinase Cancelled 04/28/24 09:40 Troponin T Baseline 148 ng/L (0-15) H* 04/28/24 09:40 Troponin T 120 Minute 149.4 ng/L (0-15) H 04/28/24 12:16 Delta Troponin T 1.4 ABS# (0-10) 04/28/24 12:16 C-Reactive Protein 60.9 mg/L (0.0-4.9) H 04/28/24 09:40 NT-Pro-B Natriuret Pep 69064 pg/mL (0-125) H 04/28/24 09:40 Total Protein 6.5 g/dL (6.6-8.7) L 04/28/24 09:40 Albumin 2.5 g/dL (3.5-5.2) L 04/28/24 09:40 Globulin 4.0 g/dL (1.3-4.6) 04/28/24 09:40 Urine Color Yellow (Yellow) 04/28/24 10:59 Urine Appearance Clear (CLEAR) 04/28/24 10:59 Urine pH 5.0 (5-7) 04/28/24 10:59 Ur Specific Mccormick 1.014 (1.005-1.030) 04/28/24 10:59 Urine Protein 2+ (Negative) A 04/28/24 10:59 Urine Glucose (UA) Negative (Normal) 04/28/24 10:59 Urine Ketones Negative (Negative) 04/28/24 10:59 Urine Blood Neg (Negative) 04/28/24 10:59 Urine Nitrate Negative (Negative) 04/28/24 10:59 Urine Bilirubin Negative (Negative) 04/28/24 10:59 Urine Urobilinogen 1.0 mg/dL (Negative) 04/28/24 10:59 Ur Leukocyte Esterase Negative (Negative) 04/28/24 10:59 Urine RBC 0-2 /hpf (0-2) 04/28/24 10:59 Urine WBC 0-5 /hpf (0-5) 04/28/24 10:59 Ur Squamous Epith Cells 0-5 /hpf (0-5) 04/28/24 10:59 Amorphous Sediment Not Reportable 04/28/24 10:59 Urine Bacteria None seen /hpf (NONE) 04/28/24 10:59 Hyaline Casts 0.81 /lpf 04/28/24 10:59 OLDER CRP Results 01/04/23 01/18/23 08/28/23 04:24 18:40 16:05 C-Reactive Protein 69.7 H 18.0 H 137.6 H 12/04/23 12/06/23 12/09/23 12:20 05:18 04:51 C-Reactive Protein 40.1 H 19.6 H 14.4 H A&P Assessment and plan (1) Weakness of both lower extremities: With progression of numbness in lower extremities to the knees by his report. Also complaining of some weakness in both upper extremities limiting ability to transfer effectively. Has muscle wasting noted in both upper and lower extremities from disuse and impact of chronic medical conditions. While he did not have peritoneal dialysis yesterday current electrolytes do not suggest acute metabolic cause for weakness. Worsening of his osteomyelitis could be a contributing factor as well as other infectious source. Recent new finding of fecal incontinence does bring up potential for spinal cord involvement. Guillain-Jeong? is also within the differential though his chronic medical problems and fact I have not evaluated him previously make it difficult to know what his baseline muscle mass and functioning are especially as he has had similar degrees of weakness in the past from what he tells me that improved with initiation of dialysis. 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 Spoke with infectious disease who recommended 2-week course of antibiotics at this time; more definitive treatment with amputation still recommended. (3) Chronic osteomyelitis: Longstanding diagnosis in the left foot for which amputation has been previously recommended but declined by patient. (4) Pressure injury of sacral region, stage 2: Present on admission, multiple small wounds and throughout the sacral area meeting stage II criteria (5) Elevated troponin: Always has an elevated troponin on review of previous records. From what I can gather he had stress testing in November 2022. Plans at that time were for medical management. I do not see that he ever had more invasive evaluation which I suspect is secondary to chronic osteomyelitis and risk of infection combined with progressively worsening kidney disease as he was not on dialysis at that time. He denies any chest pain or increasing shortness of breath. Chronically on plavix and aspirin. (6) ESRD (end stage renal disease) on dialysis: Chronically on peritoneal dialysis. Missed yesterday only by his report. Has some mild hyperkalemia and metabolic acidosis related to this. Does make some urine but not much. Chronically on renal vitamin, vitamin D, renvela, veltassa for hyperkalemia, sodium bicarbonate (7) Hypertension: Primary hypertension with renovascular component, chronically on metoprolol, amlodipine and as needed lasix (8) Congestive heart failure: Chronic, not acute. Skin with wrinkles though total body overloaded. CXR without clear edema. BNP is elevated but always so. Chronically on lasix as needed and beta blockade. (9) Hyperlipidemia: Chronically on statin (10) Type 2 diabetes mellitus: Insulin requiring with chronic kidney disease on dialysis, peripheral neuropathy, peripheral vascular disease. On levemir and lispro. For neuropathy takes both gabapentin and lyrica chronically. Qualifiers: Diabetes mellitus complication status: with kidney complications Diabetes mellitus grad intern insulin use: with grad intern use Chronic kidney disease stage: on chronic dialysis (11) Peritoneal dialysis catheter in situ: (12) BMI 36.0-36.9,adult: Plan Observation admission currently Follow-up results of lumbar spine MRI OT evaluation to assess ability to transfer and recommend potential strengthening exercises Blood culture Will initiate Augmentin and ciprofloxacin for planned 2 weeks of empiric treatment for wounds Recheck CRP in the morning along with electrolytes Continue wound VAC to left heel Wound care with turning and barrier cream to sacral area Continue serial cardial enzymes Keep on home aspirin and plavix Nephrology consultation for peritoneal dialysis Continue home metoprolol, lasix daily at 40mg Currently holding amlodipine Telemetry monitoring Follow weights Continue home statin Lantus and lipro insulin along with usual dosing of lyrica and gabapentin Continue home albuterol as needed Case managemnt for DC planning Will need to resume home care and wound care at discharge; not interested in options such as skilled or prison care at this time Will need follow up with PCP at discharge also SQ heparin for DVT prophylaxis Supportive care otherwise Plans discussed with patient and he was given an opportunity to ask questions FULL CODE Attestations Medical Necessity Statement*: Currently anticipate a stay less than two midnights in this gentleman with chronic medical problems presenting with weakness. He missed 1 session of peritoneal dialysis because he was unable to get his supplies. He does have an elevation in CRP from last comparative values in November of this year and chronic wounds that per wound care nurses were near his recent baseline. Plans are as noted. Pending results of above further determination regarding care will be made. 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
--- NOTE | 2024-04-28 13:19 | PC.PHAR ---
PT VERIFIED HE TAKES GABAPENTIN 300MG AT BEDTIME AND LYRICA 200MG THREE TIMES DAILY.
[2024-04-28 13:21] LABS: C Reactive Protein 60.9 mg/L (0.0-4.9)
--- NOTE | 2024-04-28 16:20 | ECG_ITS ---
[facility] Test Date: 2024-04-28 Pat Name: Tim Robison Department: Room: 278 Gender: Male Assistant Research Scientist: : [id number] Requested By: Marianne Marcelo Order Number: [id number] I[place] MD: Laurita Love M.D. Measurements Intervals [place] Rate: 76 P: 20 RI: 210 QRS: 142 QRSD: 139 T: 21 QT: 414 QTc: 467 Interpretive Statements SINUS RHYTHM WITH FIRST DEGREE AV BLOCK RIGHT AXIS DEVIATION [QRS AXIS > 100] RIGHT BUNDLE BRANCH BLOCK [120+ ms QRS DURATION, UPRIGHT V1, 40+ ms S IN I/aVL/V4/V5/V6] Compared to ECG 04/28/2024 12:20:10 No significant changes Electronically Signed On 04-29-2024 6:37:40 CDT by Laurita Love M.D. [id number]
[2024-04-28 16:46] LABS: Troponin 5 6HR Delta -2.2 ng/L (0-12)
[2024-04-28 16:48] LABS: Troponin 5 6HR 145.8 ng/L (0-15)
[2024-04-28 17:13] LABS: Glucose Point of Care 148 mg/dL (70-110)
[2024-04-28] MEDS: heparin 5,000 unit/mL INJ 1 mL 5000 UNIT SUBCUT (18:02)
[2024-04-28] MEDS: sodium bicarbonate 650 mg Tablet 1300 MG PO (18:02)
[2024-04-28] MEDS: insulin lispro 100 unit/1 mL SUBCUT (18:03)
--- NOTE | 2024-04-28 20:08 | P.CONIM_ITS ---
Providers/Reason For Consult 2 Consulting Physician/Specialty*: [facility]/Nephrology Reason for Consult*: esrd Attending Physician: Mary Bailey MD Primary Care Provider: SERAFIN Reza History of Present Illness History of Present Illness Tim Robison is a 58 year old male 58-year-old male with multiple chronic medical problems including end-stage renal disease on dialysis, peritoneal dialysis, diabetes, chronic osteomyelitis chronic left heel ulcer presented to the emergency department due to leg numbness and weakness. Patient missed his peritoneal dialysis session yesterday. CRP was elevated. He is admitted for further management. Lab data significant for sodium of 136 potassium 5.4 creatinine 7.1. Patient is admitted for further management. Review of Systems 2 Narrative: Negative Medications/Allergies Home Medications Medication Instructions Recorded Confirmed Last Taken Type gabapentin 300 mg capsule 300 mg PO BEDTIME 10/11/20 04/28/24 04/27/24 History blood-glucose meter,continuous #1 ea 04/23/22 04/28/24 01/30/23 Rx (Dexcom G6 Trust Clerk) blood-glucose sensor (Dexcom G6 #9 ea 04/23/22 04/28/24 01/30/23 Rx Sensor device) blood-glucose transmitter (Dexcom #3 ea 04/23/22 04/28/24 01/30/23 Rx G6 Transmitter device) albuterol sulfate 90 mcg/actuation 1 puff inhalation Q6H PRN 11/29/22 04/28/24 01/30/23 History aerosol inhaler shortness of breath or wheezing atorvastatin 40 mg tablet 40 mg PO BEDTIME 11/29/22 04/28/24 04/27/24 History famotidine 20 mg tablet 20 mg PO BID 11/29/22 04/28/24 04/27/24 History pregabalin 200 mg capsule (Lyrica) 200 mg PO TID 11/29/22 04/28/24 04/27/24 History Podus Boot to the Left #1 ea 12/03/22 04/28/24 01/30/23 Rx aspirin 81 mg chewable tablet 81 mg PO QAM #60 tabs 12/06/22 04/28/24 04/27/24 Rx insulin lispro 100 unit/mL See Rx Instructions .Route 01/07/23 04/28/24 04/27/24 Rx subcutaneous pen (Humalog KwikPen .COMPLEX #15 mL (U-100) Insulin) clopidogrel 75 mg tablet (Plavix) 75 mg PO QAM 01/18/23 04/28/24 04/27/24 History docusate sodium 100 mg capsule 100 mg PO BID PRN Constipation 01/18/23 04/28/24 01/30/23 History amlodipine 10 mg tablet 10 mg PO QAM 01/30/23 04/28/24 04/27/24 History furosemide 20 mg tablet (Lasix) 20 - 40 mg PO DAILY PRN Edema 01/30/23 04/28/24 Unknown History ergocalciferol (vitamin D2) 1,250 See Rx Instructions .Route .COMPLEX 08/29/23 04/28/24 04/26/24 History mcg (50,000 unit) capsule (Vitamin D2) vit B,C-folic ac 800 mcg-zinc 12.5 1 tab PO DAILY 08/29/23 04/28/24 04/27/24 History mg-selen-D3 2,000 unit-vit E tablet (RenaPlex-D) fluticasone 100 mcg-salmeterol 50 1 inh inhalation BID PRN Shortness 12/04/23 04/28/24 Unknown History mcg/dose blistr powdr for Of Breath inhalation (Advair Diskus) insulin detemir U-100 100 unit/mL 10 unit (0.1 mL) SUBCUT QAM 30 12/09/23 04/28/24 04/27/24 Rx (3 mL) subcutaneous pen (Levemir days #3 mL FlexPen) metoprolol tartrate 100 mg tablet 100 mg PO BID 04/28/24 04/28/24 04/27/24 History patiromer calcium sorbitex 8.4 8.4 g PO DAILY 04/28/24 04/28/24 04/27/24 History gram oral powder packet (Veltassa) sevelamer carbonate 800 mg tablet 800 mg PO TID 04/28/24 04/28/24 04/27/24 History sodium bicarbonate 650 mg tablet 1,300 mg PO BID 04/28/24 04/28/24 04/27/24 History amoxicillin 875 mg-potassium 1 tab PO BID@,21 #10 tabs 04/29/24 Unknown Rx clavulanate 125 mg tablet Allergies Allergy/AdvReac Type Severity Reaction Status Date / Time Iodinated Contrast Media Allergy ALGY-Hives Verified 12/24/23 13:55 Current Medications Generic Name Dose Route Start Last Admin Trade Name Stacie PRN Reason Stop Dose Admin Heparin Sodium (Porcine) 5,000 unit 04/28/24 17:45 04/28/24 18:02 Heparin 5,000 Unit/Ml Inj 1 Ml SUBCUT 5,000 unit Q12H KELSEY Administration Insulin Human Lispro 0 unit 04/28/24 18:00 04/28/24 18:03 Insulin Lispro 100 Unit/1 Ml SUBCUT 2 unit TIDWM KELSEY Administration Protocol Sodium Bicarbonate 1,300 mg 04/28/24 18:00 04/28/24 18:02 Sodium Bicarbonate 650 Mg Tablet PO 1,300 mg BID KELSEY Administration PFSH Acute 2 PFSH: Medical History (Updated 04/28/24 @ 20:12 by Mary Bailey MD) GERD (gastroesophageal reflux disease) TIA (transient ischemic attack) Hypertension Anemia Elevated troponin Peritoneal dialysis catheter in situ History of cardiovascular stress test 11/2022 areas of fixed events with very small areas of reversible defect, suggesting myocardial scarring with possible gurjit-infarction ischemia History of echocardiogram 12/2022 EF50%, tech difficult study ESRD (end stage renal disease) on dialysis COVID (~12/2022) NSTEMI (non-ST elevated myocardial infarction) Aspiration pneumonia PVD (peripheral vascular disease) Chronic ulcer of right foot with fat layer exposed 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 Diabetic peripheral neuropathy associated with type 2 diabetes mellitus Congestive heart failure Type 2 diabetes mellitus Diabetic ulcer of foot associated with diabetes mellitus due to underlying condition, with fat layer exposed Chronic osteomyelitis 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 Uncontrolled type 2 diabetes with neuropathy Hyperlipidemia Onychomycosis of nail of digit of hand Neuropathy Surgical History (Updated 04/28/24 @ 13:31 by Mary Bailey MD) History of insertion of tunneled central venous catheter (CVC) with port H/O circumcision H/O colonoscopy 7 yrs ago Status post debridement of ulcer of heel Family History Brother Cancer Sister Lung disease Mother Heart failure Father Chronic kidney failure Denies family history of Anesthesia complication Bleeding disorder Social History Smoking and tobacco/nicotine status: former use of tobacco/nicotine Second hand smoke exposure: No Alcohol intake: never Substance/Drug Use: never Adopted: No Lives independently: Yes Marital status: Single Current occupational status: disabled Vitals/I&O/Wt Last Vital Signs Temp 97.5 F L 04/28/24 15:40 Pulse 84 04/28/24 18:24 Resp 18 04/28/24 18:24 BP 134/71 04/28/24 15:40 Pulse Ox 94 04/28/24 18:24 O2 Del Method Room Air 04/28/24 18:24 Weight last 48 hrs Weight 110.903 kg Weight 113.398 kg Physical Exam 2 Narrative: Patient is awake alert, no distress HEENT S1-S2 regular rate and rhythm per report Lungs clear per report Lower extremity wounds Data 04/29/24 05:37 04/29/24 05:37 A&P Assessment and plan (1) ESRD (end stage renal disease) on dialysis: (2) ESRD on peritoneal dialysis: Plan 1. End-stage renal disease: On peritoneal dialysis-patient doing 1 exchange of 2.5 solution with a dwell time of 4 hours -Ordered 2 exchanges while in the hospital, they recommended patient to do 2-3 exchanges per day to increase clearance. Patient has hyperkalemia and metabolic acidosis. -Continue 2 g sodium restriction and 1500 mill fluid restriction 2. History of hypertension: Restart home meds 3. Chronic osteomyelitis, left foot wound ulcer, management per primary team, followed by wound care 4. Anemia, hemoglobin 12, monitor 5. hyperkalemia : s/p kayexylate , low K diet Patient evaluated using audiovisual cart. Time spent 20 minutes. Consult Attestations 2 Medical Necessity Statement: Per medicine team Coding Level of Care Code Acute Code for Chg Fwd Diagnoses ESRD (end stage renal disease) on dialysis N18.6; Z99.2 ESRD on peritoneal dialysis N18.6; Z99.2
[2024-04-28 20:24] LABS: Glucose Point of Care 121 mg/dL (70-110)
[2024-04-28 21:31] LABS: Glucose Point of Care 99 mg/dL (70-110)
[2024-04-28] MEDS: ciprofloxacin 500 mg Tablet PO (21:32)
[2024-04-28] MEDS: metoprolol tartrate 50 mg Tablet 100 MG PO (21:32)
[2024-04-28] MEDS: atorvastatin 40 mg Tablet PO (21:32)
[2024-04-28] MEDS: gabapentin 300 mg Capsule PO (21:32)
[2024-04-28] MEDS: amoxicillin-clav 875-125 mg Tablet 1 TAB PO (21:32)
[2024-04-28] MEDS: sevelamer 800 mg Tablet PO (21:33)
[2024-04-28] MEDS: pregabalin 100 mg Capsule 200 MG PO (21:33)
[2024-04-28] MEDS: FUROsemide 10 mg/mL SDV 10mL 80 MG IVP (22:55)
[2024-04-28] MEDS: Dianeal low Ca w/1.5% dex 2,000 mL Bag 2000 ML INTRAPERIT (23:11)
[2024-04-29] VITALS (10 sets, daily range): BP systolic 99–126; BP diastolic 51–64; PULSE 58–63; RESP 16–19; TEMP 36.3–37.1; O2SAT 90–92
[2024-04-29 01:18] LABS: Anion Gap 15.5 (5-19); Blood Urea Nitrogen 66 mg/dL (6-20); Calcium 7.1 mg/dL (8.5-10.5); Carbon Dioxide 20 mmol/L (22-29); Chloride 108 mmol/L (98-107); Glucose 128 mg/dL (65-115); Osmolality Calculated 307 mOsm/kg (285-295); Potassium 5.5 mmol/L (3.5-5.1); Sodium 138 mmol/L (136-145)
[2024-04-29] MEDS: heparin 5,000 unit/mL INJ 1 mL 5000 UNIT SUBCUT (05:27)
[2024-04-29] MEDS: clopidogrel 75 mg Tablet PO (05:27)
[2024-04-29] MEDS: aspirin 81 mg Chew Tablet PO (05:27)
[2024-04-29 05:47] LABS: Basophils # 0.1 10^3/uL (0.0-0.1); Basophils % 1.1 %; Eosinophils # 0.4 10^3/uL (0.0-0.8); Eosinophils % 5.5 %; Hematocrit 37.9 % (37-53); Lymphocytes # 0.6 10^3/uL (0.8-4.8); Lymphocytes % 8.5 %; Mean Corpuscular HGB Conc 32.2 g/dL (30-55); Mean Corpuscular Hemoglobin 28.6 pg (27-33); Mean Corpuscular Volume 88.8 fl (82-101); Mean Platelet Volume 12.1 fL (7.4-10.4); Monocytes # 0.6 10^3/uL (0.2-0.9); Monocytes % 8.8 %; Neutrophils # 5.32 10^3/uL (1.8-7.7); Neutrophils % 74.4 %; Nucleated Red Blood Cells % 0 %; Platelet Count 183 10^3/cmm (157-399); Red Blood Count 4.27 10^6/uL (3.85-5.65); Red Cell Distribution Width 14.1 % (12.1-15.1); White Blood Count 7.15 10^3/uL (3.29-11.43)
[2024-04-29 06:01] LABS: Glucose Point of Care 102 mg/dL (70-110)
[2024-04-29 06:15] LABS: Anion Gap 16.3 (5-19); Blood Urea Nitrogen 65 mg/dL (6-20); C Reactive Protein 66.9 mg/L (0.0-4.9); Calcium 7.3 mg/dL (8.5-10.5); Carbon Dioxide 20 mmol/L (22-29); Chloride 108 mmol/L (98-107); Creatinine Clr Calc Pharmacy 18.0794; Glomerular Filtration Rate 10.6 mL/min (90-130); Glucose 123 mg/dL (65-115); Magnesium 2.3 mg/dL (1.7-2.3); Osmolality Calculated 308 mOsm/kg (285-295); Phosphorus 4.1 mg/dL (2.5-4.5); Potassium 5.3 mmol/L (3.5-5.1); Sodium 139 mmol/L (136-145)
[2024-04-29] MEDS: lactobacillus 1 Tablet 2 TAB PO ×2 (07:44→18:04)
[2024-04-29] MEDS: sevelamer 800 mg Tablet PO ×2 (07:45→14:21)
[2024-04-29] MEDS: sodium bicarbonate 650 mg Tablet 1300 MG PO ×2 (07:45→18:04)
[2024-04-29] MEDS: amoxicillin-clav 875-125 mg Tablet 1 TAB PO (07:45)
[2024-04-29] MEDS: pregabalin 100 mg Capsule 200 MG PO ×2 (07:45→14:21)
[2024-04-29] MEDS: b-complex-vitamin c Tablet 1 EACH PO (07:46)
[2024-04-29] MEDS: famotidine 20 mg Tablet PO (07:46)
[2024-04-29] MEDS: ciprofloxacin 500 mg Tablet PO (07:46)
[2024-04-29] MEDS: metoprolol tartrate 50 mg Tablet 100 MG PO (07:46)
[2024-04-29] MEDS: FUROsemide 40 mg Tablet PO (07:47)
[2024-04-29] MEDS: insulin glargine 100 units/1 mL 8 UNIT SUBCUT (07:52)
[2024-04-29] MEDS: Dianeal low Ca w/1.5% dex 2,000 mL Bag 2000 ML INTRAPERIT (09:55)
--- NOTE | 2024-04-29 11:04 | P.DS_ITS ---
Discharge Providers Date of Admission: 04/28/24 13:49 Date of Discharge: April 29, 2024 Attending Provider at Admission: Mary Bailey MD Attending Provider at Discharge: Abisai Maddox MD Primary Care Provider: SERAFIN Reza Diagnoses at Discharge Discharge Diagnosis (1) Weakness of both lower extremities: Status: Acute (2) 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: Status: Acute (3) Chronic osteomyelitis: Status: Acute (4) Pressure injury of sacral region, stage 2: Status: Acute (5) Elevated troponin: Status: Acute (6) ESRD (end stage renal disease) on dialysis: Status: Acute (7) Hypertension: Status: Chronic (8) Congestive heart failure: Status: Chronic (9) Hyperlipidemia: Status: Chronic (10) Type 2 diabetes mellitus: Status: Acute (11) Peritoneal dialysis catheter in situ: Status: Chronic (12) BMI 36.0-36.9,adult: Status: Acute Reason for Visit Reason for Visit: Leg Numbness Hospital Course Hospital Course Tim Robison is a 58 year old male with multiple chronic medical problems as outlined below who presented to the emergency room due to weakness and both of his lower extremities. There was concern that he is not able to move his lower extremities for about a week, patient is stating that he does have significant neuropathy, he is able to walk with the help of special boots, he does have home health services and wound care nurse, patient was dialyzed in the hospital, MRI spine was done which did not show typical cauda equina signs, I do believe his lower extremity weakness is related to fluid overload and neuropathy, he is able to wiggle toes, there is no dense focal deficit, he does have degenerative joint disease for which I will give him referral to see Dr. Thomas. Patient will be discharged with stable hemodynamics. He still has a wound VAC on his nonhealing left heel wound. Considering muscle wasting and chronic issues I do not think this has happened within the last 7 days, he has not shown typical cauda equina symptoms he has chronic osteomyelitis of left foot has a wound VAC in place, Sacral pressure injury ulcer, end-stage renal disease and CHF all these comorbid conditions likely contributing to his weakness at this point Physical Exam Narrative: Patient has foul-smelling wound on his extremities Wound VAC in place Muscle wasting noted Able to wiggle toes Decree sensation of lower extremities bilaterally Edema 3+ Chronic stasis dermatitis Unkept appearance Discharge Data Studies Completed and Pending Completed Studies During Hospitalization Category Date Time Status CT head wo con* [id number] Stat Cat Scan 04/28/24 09:[address] lumbar spine wo con* [id number] Stat Cat Scan 04/28/24 09:34 Completed XR chest 1V portable [id number] Urgent Exams 04/28/24 09:30 Completed MR lumbar spine wo con* [id number] Stat MRI 04/28/24 11:03 Completed Pending at discharge Category Date Time Status Blood Culture Stat Lab 04/28/24 20:50 Results Radiology Impressions Chest X-Ray 04/28/24 09:30 IMPRESSION: Limited inspiration. Focal airspace opacity in the left base was present on the prior examination and may represent scarring. Head CT 04/28/24 09:34 IMPRESSION: 1. No evidence of intracranial hemorrhage or mass effect. 2. No acute intracranial findings. Lumbar Spine CT 04/28/24 09:34 IMPRESSION: 1. Moderate spondylitic changes. No acute fractures. 2. Mild central canal stenosis L4-5. 3. A few prominent periaortic lymph nodes the largest measuring 1.4 cm. This can be followed up with CT abdomen pelvis Lumbar Spine MRI 04/28/24 11:03 IMPRESSION: 1. Multilevel degenerative disc disease and facet arthropathy. 2. L5-S1: Large central disc osteophyte with facet and ligamentum flavum hypertrophy. Moderate central with severe bilateral subarticular recess and foraminal stenosis. 3. L4-5: Mild central, subarticular recess and foraminal stenosis, RIGHT greater than LEFT. 4. L2-3 and L3-4: Mild central and subarticular recess encroachment. 5. Shallow LEFT paracentral disc protrusions at T12-L1 and L1-2. Laboratory Results WBC 7.15 10^3/uL (3.29-11.43) 04/29/24 05:37 RBC 4.27 10^6/uL (3.85-5.65) 04/29/24 05:37 Hgb 12.20 g/dL (11.27-16.99) 04/29/24 05:37 Hct 37.9 % (37-53) 04/29/24 05:37 MCV 88.8 fl (82-101) 04/29/24 05:37 MCH 28.6 pg (27-33) 04/29/24 05:37 MCHC 32.2 g/dL (30-55) 04/29/24 05:37 RDW 14.1 % (12.1-15.1) 04/29/24 05:37 Plt Count 183 10^3/cmm (157-399) 04/29/24 05:37 MPV 12.1 fL (7.4-10.4) H 04/29/24 05:37 Neut % (Auto) 74.4 % 04/29/24 05:37 Lymph % (Auto) 8.5 % 04/29/24 05:37 [place] % (Auto) 8.8 % 04/29/24 05:37 Eos % (Auto) 5.5 % 04/29/24 05:37 Baso % (Auto) 1.1 % 04/29/24 05:37 Neut # (Auto) 5.32 10^3/uL (1.8-7.7) 04/29/24 05:37 Lymph # (Auto) 0.6 10^3/uL (0.8-4.8) L 04/29/24 05:37 [place] # (Auto) 0.6 10^3/uL (0.2-0.9) 04/29/24 05:37 Eos # (Auto) 0.4 10^3/uL (0.0-0.8) 04/29/24 05:37 Baso # (Auto) 0.1 10^3/uL (0.0-0.1) 04/29/24 05:37 Nucleated RBC % (auto) 0 % 04/29/24 05:37 Nucleated RBCs # 0.0 /100WBC 04/29/24 05:37 Sodium 139 mmol/L (136-145) 04/29/24 05:37 Potassium 5.3 mmol/L (3.5-5.1) H 04/29/24 05:37 Chloride 108 mmol/L (98-107) H 04/29/24 05:37 Carbon Dioxide 20 mmol/L (22-29) L 04/29/24 05:37 Anion Gap 16.3 (5-19) 04/29/24 05:37 BUN 65 mg/dL (6-20) H 04/29/24 05:37 Creatinine 5.6 mg/dL (0.7-1.2) H* 04/29/24 05:37 GFR Calculation 10.6 mL/min (90-130) L 04/29/24 05:37 Glucose 123 mg/dL (65-115) H 04/29/24 05:37 POC Glucose 102 mg/dL (70-110) 04/29/24 05:57 Calculated Osmolality 308 mOsm/kg (285-295) H 04/29/24 05:37 Calcium 7.3 mg/dL (8.5-10.5) L 04/29/24 05:37 Phosphorus 4.1 mg/dL (2.5-4.5) 04/29/24 05:37 Magnesium 2.3 mg/dL (1.7-2.3) 04/29/24 05:37 Total Bilirubin 0.4 mg/dL (0.15-1.2) 04/28/24 09:40 AST 19 U/L (0-40) 04/28/24 09:40 ALT 11 U/L (0-41) 04/28/24 09:40 Alkaline Phosphatase 203 U/L (40-130) H 04/28/24 09:40 Creatine Kinase 64 U/L (39-308) 04/28/24 09:40 Creatine Kinase Cancelled 04/28/24 09:40 Troponin T Baseline 148 ng/L (0-15) H* 04/28/24 09:40 Troponin T 120 Minute 149.4 ng/L (0-15) H 04/28/24 12:16 Delta Troponin T 1.4 ABS# (0-10) 04/28/24 12:16 Troponin T Hi Sens 6Hr 145.8 ng/L (0-15) H 04/28/24 16:01 Troponin T Hi Sens 6Hr Delta -2.2 ng/L (0-12) L 04/28/24 16:01 C-Reactive Protein 66.9 mg/L (0.0-4.9) H 04/29/24 05:37 NT-Pro-B Natriuret Pep 27200 pg/mL (0-125) H 04/28/24 09:40 Total Protein 6.5 g/dL (6.6-8.7) L 04/28/24 09:40 Albumin 2.5 g/dL (3.5-5.2) L 04/28/24 09:40 Globulin 4.0 g/dL (1.3-4.6) 04/28/24 09:40 Urine Color Yellow (Yellow) 04/28/24 10:59 Urine Appearance Clear (CLEAR) 04/28/24 10:59 Urine pH 5.0 (5-7) 04/28/24 10:59 Ur Specific Adger 1.014 (1.005-1.030) 04/28/24 10:59 Urine Protein 2+ (Negative) A 04/28/24 10:59 Urine Glucose (UA) Negative (Normal) 04/28/24 10:59 Urine Ketones Negative (Negative) 04/28/24 10:59 Urine Blood Neg (Negative) 04/28/24 10:59 Urine Nitrate Negative (Negative) 04/28/24 10:59 Urine Bilirubin Negative (Negative) 04/28/24 10:59 Urine Urobilinogen 1.0 mg/dL (Negative) 04/28/24 10:59 Ur Leukocyte Esterase Negative (Negative) 04/28/24 10:59 Urine RBC 0-2 /hpf (0-2) 04/28/24 10:59 Urine WBC 0-5 /hpf (0-5) 04/28/24 10:59 Ur Squamous Epith Cells 0-5 /hpf (0-5) 04/28/24 10:59 Amorphous Sediment Not Reportable 04/28/24 10:59 Urine Bacteria None seen /hpf (NONE) 04/28/24 10:59 Hyaline Casts 0.81 /lpf 04/28/24 10:59 Vitals Last Vital Signs Temp 97.7 F 04/29/24 07:59 Pulse 60 04/29/24 07:59 Resp 18 04/29/24 07:59 BP 121/64 04/29/24 07:59 Pulse Ox 90 04/29/24 07:59 O2 Del Method Room Air 04/29/24 07:59 Discharge Plan Discharge Patient Disposition: Home Condition: Stable Prescriptions: New amoxicillin-pot clavulanate 875-125 mg Tablet 1 tab PO BID@ Qty: 10 0RF Continued gabapentin 300 mg capsule 300 mg PO BEDTIME (DME) Dexcom G6 Sensor Device See Rx Instructions .Route Qty: 9 3RF Rx Instructions: As directed (DME) Dexcom G6 Worm Grower Misc See Rx Instructions .Route Qty: 1 0RF Rx Instructions: As directed (DME) Dexcom G6 Transmitter Device See Rx Instructions .Route Qty: 3 3RF Rx Instructions: As directed (DME) Podus Boot to the Left See Rx Instructions .Route .MEDSUPPLY Qty: 1 0RF Rx Instructions: As directed J P & O- Patient is in Hospital Cardiac Stepdown Unit room 105-1 atorvastatin 40 mg tablet 40 mg PO BEDTIME albuterol sulfate 90 mcg/actuation HFA aerosol inhaler 1 puff inhalation Q6H PRN (Reason: shortness of breath or wheezing) pregabalin [Lyrica] 200 mg capsule 200 mg PO TID famotidine 20 mg tablet 20 mg PO BID aspirin 81 mg Tablet,Chewable 81 mg PO QAM Qty: 60 0RF insulin lispro [Humalog KwikPen Insulin] 100 unit/mL insulin pen See Rx Instructions .ROUTE .COMPLEX Qty: 15 0RF Rx Instructions: Inject, subcut, 3 times daily, after meals, based on sliding scale provided amlodipine 10 mg tablet 10 mg PO QAM furosemide [Lasix] 20 mg tablet 20 - 40 mg PO DAILY PRN (Reason: Edema) clopidogrel [Plavix] 75 mg tablet 75 mg PO QAM docusate sodium 100 mg capsule 100 mg PO BID PRN (Reason: Constipation) ergocalciferol (vitamin D2) [Vitamin D2] 1,250 mcg (50,000 unit) capsule See Rx Instructions .ROUTE .COMPLEX Rx Instructions: 1,250 mcg orally every 7 days on Saturday. RenaPlex-D 800 mcg-12.5 mg -2,000 unit tablet 1 tab PO DAILY fluticasone propion-salmeterol [Advair Diskus] 100-50 mcg/dose blister with device 1 inh inhalation BID PRN (Reason: Shortness Of Breath) Levemir FlexPen 100 unit/mL (3 mL) insulin pen 10 unit SUBCUT QAM 30 Days Qty: 3 0RF metoprolol tartrate 100 mg tablet 100 mg PO BID sodium bicarbonate 650 mg tablet 1,300 mg PO BID sevelamer carbonate 800 mg tablet 800 mg PO TID Veltassa 8.4 gram powder in packet 8.4 g PO DAILY Discharge Orders: Discharge Order (Routine); Ordered 04/29/24 Ordered By: Abisai Maddox Referrals: Victorino Thomas DO [Physician] - 2 weeks Vidhi Gillette FNP [Primary Care Provider] - 05/06/24 9:20 am Patient Instructions: Opioid Safety Discharge Attestations Time Spent in Discharge Care*: greater than 30 min Status at Discharge: Cognitive status at discharge: cognitively intact , Behavioral status at discharge: cooperative , Quality Metrics Clinical Quality Measures [ No reported AMI, CVA or VTE this stay] Coding Level of Care Code Acute Code for Chg Fwd Diagnoses Weakness of both lower extremities R29.898 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 Chronic osteomyelitis M86.60 Pressure injury of sacral region, stage 2 L89.152 Elevated troponin R77.8 ESRD (end stage renal disease) on dialysis N18.6; Z99.2 Hypertension I10 Congestive heart failure I50.9 Hyperlipidemia E78.5 Type 2 diabetes mellitus E11.9 Peritoneal dialysis catheter in situ Z99.2 BMI 36.0-36.9,adult Z68.36
[2024-04-29 11:31] LABS: Glucose Point of Care 243 mg/dL (70-110)
[2024-04-29] MEDS: insulin lispro 100 unit/1 mL SUBCUT (12:10)
--- NOTE | 2024-04-29 15:14 | PC.OT ---
OT EVALUATION NOT COMPLETED PATIENT IS SCHEDULED FOR D/C TODAY
--- NOTE | 2024-04-29 16:00 | P.PN_ITS ---
Subjective 2 Subjective: no new complaints Medications: Reviewed: Yes Vitals/I&O/Wt Last Vital Signs Temp 98.0 F 04/29/24 12:35 Pulse 61 04/29/24 14:00 Resp 19 H 04/29/24 12:35 BP 126/63 04/29/24 12:35 Pulse Ox 90 04/29/24 12:35 O2 Del Method Room Air 04/29/24 12:35 04/29/24 04/29/24 04/29/24 06:59 14:59 22:59 Output Total 800 / 800 400 / 400 Balance -800 / -560 -400 / -400 Weight last 48 hrs Weight 110.495 kg Weight 110.903 kg Weight 113.398 kg Physical Exam 2 Narrative: Patient is awake alert, no distress HEENT S1-S2 regular rate and rhythm per report Lungs clear per report Lower extremity wounds Data 04/29/24 05:37 04/29/24 05:37 Micro: Microbiology 04/28/24 20:50 Blood Culture - Preliminary Blood SPECIMEN COLLECTED 04/28/24 20:42 Blood Culture - Preliminary Blood SPECIMEN COLLECTED A&P Assessment and plan (1) ESRD (end stage renal disease) on dialysis: (2) ESRD on peritoneal dialysis: Plan 1. End-stage renal disease: On peritoneal dialysis-patient doing 1 exchange of 2.5 solution with a dwell time of 4 hours -Ordered 2 exchanges while in the hospital, I recommended patient to do 2-3 exchanges per day to increase clearance. Patient has hyperkalemia and metabolic acidosis. -Continue 2 g sodium restriction and 1500 mill fluid restriction 2. History of hypertension: Restart home meds 3. Chronic osteomyelitis, left foot wound ulcer, management per primary team, followed by wound care 4. Anemia, hemoglobin 12, monitor 5. hyperkalemia : s/p kayexylate , low K diet Patient evaluated using audiovisual cart. Time spent 20 minutes. Attestations 2 Medical Necessity Statement*: PER MEDIICNE TEAM Coding Level of Care Code Acute Code for Chg Fwd Diagnoses ESRD (end stage renal disease) on dialysis N18.6; Z99.2 ESRD on peritoneal dialysis N18.6; Z99.2
[2024-04-29 19:00] LABS: Glucose Point of Care 73 mg/dL (70-110)
== END 2024-04-29 19:02 | disposition home or self-care (01) ==
LOC: ER 13:26 → MEDSURG 13:50
PROVIDERS: Hospitalist; Admitting Provider Hospitalist; Emergency Provider Physician Assistant; PCP Nurse Practitioner Family; Visit Provider Internal Medicine
DX: R29.898 Other symptoms and signs involving the musculoskeletal system (principal); L97.424 Non-pressure chronic ulcer of left heel and midfoot with necrosis of bone; M86.60 Other chronic osteomyelitis, unspecified site; L89.152 Pressure ulcer of sacral region, stage 2; R77.8 Other specified abnormalities of plasma proteins; E11.22 Type 2 diabetes mellitus with diabetic chronic kidney disease; I13.0 Hypertensive heart and chronic kidney disease with heart failure and stage 1 through stage 4 chronic kidney disease, or unspecified chronic kidney disease; N18.6 End stage renal disease; Z99.2 Dependence on renal dialysis; I50.9 Heart failure, unspecified; Z68.36 Body mass index [BMI] 36.0-36.9, adult; K21.9 Gastro-esophageal reflux disease without esophagitis; Z86.73 Personal history of transient ischemic attack (TIA), and cerebral infarction without residual deficits; E78.2 Mixed hyperlipidemia; Z87.891 Personal history of nicotine dependence; I25.2 Old myocardial infarction
CPT/HCPCS: 36415; 36416; 70450; 71045; 72131; 72148; 80048; 80053; 81003; 81015; 82550; 82962; 83735; 83880; 84100; 84484; 85025; 86140; 87040; 93005; 96372; 99285; G0378; J1644; J1815; J1940

== ENCOUNTER → 2024-05-06 15:30 | Outpatient (BNVA) | payer OTHER, MEDICAID, SELFPAY | PROVIDERS: PCP Nurse Practitioner Family; Visit Provider Thoracic Surgery (Cardiothoracic Vascular Surgery) | DX: E11.52 Type 2 diabetes mellitus with diabetic peripheral angiopathy with gangrene (principal); E11.621 Type 2 diabetes mellitus with foot ulcer; L89.623 Pressure ulcer of left heel, stage 3 | CPT/HCPCS: 97597; 97598 ==

== ENCOUNTER → 2024-05-28 13:00 | Outpatient (BNVA) | payer OTHER, MEDICAID, SELFPAY | PROVIDERS: PCP Nurse Practitioner Family; Visit Provider Thoracic Surgery (Cardiothoracic Vascular Surgery) | DX: E11.52 Type 2 diabetes mellitus with diabetic peripheral angiopathy with gangrene (principal); E11.621 Type 2 diabetes mellitus with foot ulcer; L97.424 Non-pressure chronic ulcer of left heel and midfoot with necrosis of bone | CPT/HCPCS: 97597; 97598 ==

== ENCOUNTER 2024-06-21 16:11 | Inpatient (IN) | payer MEDICARE, MEDICAID, SELFPAY ==
[2024-06-21] VITALS (12 sets, daily range): BP systolic 86–155; BP diastolic 53–97; PULSE 78–90; RESP 14–24; TEMP 36.8; O2SAT 94–98; BMI 36.1; BMI 32.5
--- NOTE | 2024-06-21 16:25 | ED_ITS ---
HPI - Weakness 2 General: Chief complaint: Weakness Stated complaint: weakness Time Seen by Provider: 06/21/24 16:19 History of Present Illness: 58-year-old male patient comes in today for complaints of weakness and diarrhea. Patient reports diarrhea for the last 2 to 3 days. Patient was unable to do his peritoneal dialysis since because he has been too weak to perform the dialysis treatment. Patient has a history of chronic osteomyelitis. Patient denies any history of C. difficile. Patient's other medical problems include type 2 diabetes, diabetic neuropathy, CAD, CKD, PVD, CHF with last echo being December 21 that 50 to 55% ejection fraction, chronic hypoxia, and high cholesterol. Patient reports diarrhea to the point where he is lost control of his bowels. Patient is very malodorous. Review of Systems 2 General: Reports: 10 or more systems reviewed and unremarkable except in HPI and below PFSH ED 2 PFSH: Medical History (Updated 06/21/24 @ 19:27 by SERAFIN Marino) BMI 36.0-36.9,adult Pressure injury of sacral region, stage 2 Weakness of both lower extremities 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 Chronic osteomyelitis GERD (gastroesophageal reflux disease) TIA (transient ischemic attack) Hypertension Anemia Elevated troponin Peritoneal dialysis catheter in situ History of cardiovascular stress test 11/2022 areas of fixed events with very small areas of reversible defect, suggesting myocardial scarring with possible gurjit-infarction ischemia History of echocardiogram 12/2022 EF50%, tech difficult study ESRD (end stage renal disease) on dialysis COVID (~12/2022) NSTEMI (non-ST elevated myocardial infarction) Aspiration pneumonia PVD (peripheral vascular disease) Chronic ulcer of right foot with fat layer exposed 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 Diabetic peripheral neuropathy associated with type 2 diabetes mellitus Congestive heart failure Type 2 diabetes mellitus Diabetic ulcer of foot associated with diabetes mellitus due to underlying condition, with fat layer exposed Chronic osteomyelitis 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 Uncontrolled type 2 diabetes with neuropathy Hyperlipidemia Onychomycosis of nail of digit of hand Neuropathy Surgical History (Updated 04/28/24 @ 13:31 by Mary Bailey MD) History of insertion of tunneled central venous catheter (CVC) with port H/O circumcision H/O colonoscopy 7 yrs ago Status post debridement of ulcer of heel Family History Brother Cancer Sister Lung disease Mother Heart failure Father Chronic kidney failure Denies family history of Anesthesia complication Bleeding disorder Social History Smoking and tobacco/nicotine status: former use of tobacco/nicotine Second hand smoke exposure: No Alcohol intake: never Substance/Drug Use: never Adopted: No Lives independently: Yes Marital status: Single Current occupational status: disabled Physical Exam 2 Const: COMMON NORMALS: alert HENMT: COMMON NORMALS: normocephalic HEAD & SCALP: normocephalic Neck/C-Spine: COMMON NORMALS: full ROM Chest: COMMONS NORMALS: normal inspection of the chest and normal palpation of the breasts BREAST/AXILLA PALPATION: Yes normal palpation of the breasts Resp: COMMON NORMALS: normal respiratory effort and clear to auscultation bilaterally AUSCULTATION: clear to auscultation bilaterally Cardio: COMMON NORMALS: regular rate RATE: regular rate GI: COMMON NORMALS: Soft to palpation and non-tender PALPATION: Yes Soft to palpation Back/Pelvis: COMMON NORMALS: thoracic and lumbar spine normal to inspection Extremity: COMMON NORMALS: full ROM Neuro: SENSORIUM/ORIENTATION: Yes alert Skin: NARRATIVE SKIN EXAM: skin turgor fair, color pale Course 2 Vital Signs: Vital signs: Vital Signs Temperature 98.3 F 06/21/24 16:14 Pulse Rate 90 06/21/24 19:14 Respiratory Rate 18 06/21/24 16:55 Blood Pressure 138/71 06/21/24 19:14 Pulse Oximetry 98 06/21/24 19:14 Oxygen Delivery Me thod Room Air 06/21/24 19:14 MDM - Weakness Medical Decision Making 58-year-old male patient comes in today with weakness x 2 days and diarrhea x 3 days. Patient has a history of chronic kidney disease and the use of peritoneal dialysis. Patient denies any fever. Patient has a history of neuropathy with osteomyelitis. Patient reports no recent antibiotics. Differential diagnosis includes but not limited to colitis, viral syndrome, dehydration, abnormal electrolytes, need for dialysis, infected wound. After cleaning patient up from his diarrhea it was noted patient had a large open diabetic ulcer to the left heel down to the bone. Patient does have a known history of chronic osteomyelitis. Patient was given 1 L of IV fluids, and given 1 4.5 g dose of Zosyn. [address] Pittman surgeon on-call who stated he would come and evaluate patient. Reviewed patient with Dr. Burroughs who accepted patient for admission to hospitalist services for management of wound and medical problems. Lab Data 06/21/24 16:48 06/21/24 16:48 Laboratory Results WBC 18.79 10^3/uL (3.29-11.43) H 06/21/24 16:48 RBC 4.49 10^6/uL (3.85-5.65) 06/21/24 16:48 Hgb 12.60 g/dL (11.27-16.99) 06/21/24 16:48 Hct 39.5 % (37-53) 06/21/24 16:48 MCV 88.0 fl (82-101) 06/21/24 16:48 MCH 28.1 pg (27-33) 06/21/24 16:48 MCHC 31.9 g/dL (30-55) 06/21/24 16:48 RDW 14.8 % (12.1-15.1) 06/21/24 16:48 Plt Count 293 10^3/cmm (157-399) 06/21/24 16:48 MPV 12.0 fL (7.4-10.4) H 06/21/24 16:48 Neut % (Auto) 92.5 % 06/21/24 16:48 Lymph % (Auto) 1.9 % 06/21/24 16:48 [place] % (Auto) 3.9 % 06/21/24 16:48 Eos % (Auto) 0.1 % 06/21/24 16:48 Baso % (Auto) 0.2 % 06/21/24 16:48 Neut # (Auto) 17.38 10^3/uL (1.8-7.7) H 06/21/24 16:48 Lymph # (Auto) 0.4 10^3/uL (0.8-4.8) L 06/21/24 16:48 [place] # (Auto) 0.7 10^3/uL (0.2-0.9) 06/21/24 16:48 Eos # (Auto) 0.0 10^3/uL (0.0-0.8) 06/21/24 16:48 Baso # (Auto) 0.0 10^3/uL (0.0-0.1) 06/21/24 16:48 Nucleated RBC % (auto) 0 % 06/21/24 16:48 Nucleated RBCs # 0.0 /100WBC 06/21/24 16:48 Sodium 124 mmol/L (136-145) L 06/21/24 16:48 Potassium 5.3 mmol/L (3.5-5.1) H 06/21/24 16:48 Chloride 94 mmol/L (98-107) L 06/21/24 16:48 Carbon Dioxide 15 mmol/L (22-29) L 06/21/24 16:48 Anion Gap 20.3 (5-19) H 06/21/24 16:48 BUN 72 mg/dL (6-20) H 06/21/24 16:48 Creatinine 4.8 mg/dL (0.7-1.2) H 06/21/24 16:48 GFR Calculation 12.6 mL/min (90-130) L 06/21/24 16:48 Glucose 418 mg/dL (65-115) H 06/21/24 16:48 Calculated Osmolality 297 mOsm/kg (285-295) H 06/21/24 16:48 Lactic Acid 1.4 mmol/L (0.5-2.2) 06/21/24 16:48 Calcium 7.3 mg/dL (8.5-10.5) L 06/21/24 16:48 Magnesium 1.6 mg/dL (1.7-2.3) L 06/21/24 16:48 Total Bilirubin 0.5 mg/dL (0.15-1.2) 06/21/24 16:48 AST 8 U/L (0-40) 06/21/24 16:48 ALT < 5 U/L (0-41) 06/21/24 16:48 Alkaline Phosphatase 154 U/L (40-130) H 06/21/24 16:48 Total Protein 5.9 g/dL (6.6-8.7) L 06/21/24 16:48 Albumin 2.1 g/dL (3.5-5.2) L 06/21/24 16:48 Globulin 3.8 g/dL (1.3-4.6) 06/21/24 16:48 XR interpretation done by ED provider, pending radiology final review Discharge Plan Discharge Patient Disposition: Admitted As Inpatient Clinical Impression: Diabetes mellitus with foot ulcer and gangrene Condition: Stable Coding Level of Care Code ED Mid Level Provider for Chg Fwd Related Data Home Medications Medication Instructions Recorded Confirmed gabapentin 300 mg capsule 300 mg PO BEDTIME 10/11/20 04/28/24 albuterol sulfate 90 mcg/actuation 1 puff inhalation Q6H PRN 11/29/22 04/28/24 aerosol inhaler shortness of breath or wheezing atorvastatin 40 mg tablet 40 mg PO BEDTIME 11/29/22 04/28/24 famotidine 20 mg tablet 20 mg PO BID 11/29/22 04/28/24 pregabalin 200 mg capsule (Lyrica) 200 mg PO TID 11/29/22 04/28/24 clopidogrel 75 mg tablet (Plavix) 75 mg PO QAM 01/18/23 04/28/24 docusate sodium 100 mg capsule 100 mg PO BID PRN Constipation 01/18/23 04/28/24 amlodipine 10 mg tablet 10 mg PO QAM 01/30/23 04/28/24 furosemide 20 mg tablet (Lasix) 20 - 40 mg PO DAILY PRN Edema 01/30/23 04/28/24 ergocalciferol (vitamin D2) 1,250 See Rx Instructions .Route .COMPLEX 08/29/23 04/28/24 mcg (50,000 unit) capsule (Vitamin D2) vit B,C-folic ac 800 mcg-zinc 12.5 1 tab PO DAILY 08/29/23 04/28/24 mg-selen-D3 2,000 unit-vit E tablet (RenaPlex-D) fluticasone 100 mcg-salmeterol 50 1 inh inhalation BID PRN Shortness 12/04/23 04/28/24 mcg/dose blistr powdr for Of Breath inhalation (Advair Diskus) metoprolol tartrate 100 mg tablet 100 mg PO BID 04/28/24 04/28/24 patiromer calcium sorbitex 8.4 8.4 g PO DAILY 04/28/24 04/28/24 gram oral powder packet (Veltassa) sevelamer carbonate 800 mg tablet 800 mg PO TID 04/28/24 04/28/24 sodium bicarbonate 650 mg tablet 1,300 mg PO BID 04/28/24 04/28/24 Previous Rx's Medication Instructions Recorded blood-glucose meter,continuous #1 ea 04/23/22 (Dexcom G6 Information Specialist) blood-glucose sensor (Dexcom G6 #9 ea 04/23/22 Sensor device) blood-glucose transmitter (Dexcom #3 ea 04/23/22 G6 Transmitter device) Podus Boot to the Left #1 ea 12/03/22 aspirin 81 mg chewable tablet 81 mg PO QAM #60 tabs 12/06/22 insulin lispro 100 unit/mL See Rx Instructions .Route 01/07/23 subcutaneous pen (Humalog KwikPen .COMPLEX #15 mL (U-100) Insulin) insulin detemir U-100 100 unit/mL 10 unit (0.1 mL) SUBCUT QAM 30 12/09/23 (3 mL) subcutaneous pen (Levemir days #3 mL FlexPen) amoxicillin 875 mg-potassium 1 tab PO BID@ #10 tabs 04/29/24 clavulanate 125 mg tablet sodium hypochlorite 0.125 % 1 applic topical DAILY #473 mL 06/02/24 solution (Dakin's Solution) Allergies Allergy/AdvReac Type Severity Reaction Status Date / Time Iodinated Contrast Media Allergy ALGY-Hives Verified 12/24/23 13:55
[2024-06-21 16:56] LABS: Basophils % 0.2 %; Eosinophils % 0.1 %; Hematocrit 39.5 % (37-53); Lymphocytes # 0.4 10^3/uL (0.8-4.8); Lymphocytes % 1.9 %; Mean Corpuscular HGB Conc 31.9 g/dL (30-55); Mean Corpuscular Hemoglobin 28.1 pg (27-33); Monocytes # 0.7 10^3/uL (0.2-0.9); Monocytes % 3.9 %; Neutrophils # 17.38 10^3/uL (1.8-7.7); Neutrophils % 92.5 %; Nucleated Red Blood Cells % 0 %; Platelet Count 293 10^3/cmm (157-399); Red Blood Count 4.49 10^6/uL (3.85-5.65); Red Cell Distribution Width 14.8 % (12.1-15.1); White Blood Count 18.79 10^3/uL (3.29-11.43)
[2024-06-21] MEDS: sodium chloride 0.9% 1,000 ML 999 ML IV (16:57)
[2024-06-21 17:17] LABS: Alanine Aminotransferase < 5 U/L (0-41); Albumin Level 2.1 g/dL (3.5-5.2); Alkaline Phosphatase 154 U/L (40-130); Anion Gap 20.3 (5-19); Aspartate Amino Transferase 8 U/L (0-40); Blood Urea Nitrogen 72 mg/dL (6-20); Calcium 7.3 mg/dL (8.5-10.5); Carbon Dioxide 15 mmol/L (22-29); Chloride 94 mmol/L (98-107); Creatinine Clr Calc Pharmacy 21.1147; Globulin 3.8 g/dL (1.3-4.6); Glomerular Filtration Rate 12.6 mL/min (90-130); Glucose 418 mg/dL (65-115); Magnesium 1.6 mg/dL (1.7-2.3); Osmolality Calculated 297 mOsm/kg (285-295); Potassium 5.3 mmol/L (3.5-5.1); Sodium 124 mmol/L (136-145); Total Bilirubin 0.5 mg/dL (0.15-1.2); Total Protein 5.9 g/dL (6.6-8.7)
[2024-06-21 17:18] LABS: Lactic Sepsis W/Reflex 1.4 mmol/L (0.5-2.2)
--- NOTE | 2024-06-21 17:24 | CTR_ITS ---
PROCEDURE INFORMATION: Exam: CT Abdomen And Pelvis Without Contrast Exam date and time: 06/21/2024 6:34 PM Age: 58 years old Clinical indication: Abdominal pain; Generalized; Prior surgery; Surgery date: 6+ months; Surgery type: Peritoneal drain; Patient HX: Diffuse abd pain with diarrhea. History of ascites. ; Additional info: Abd pain, diarrhea TECHNIQUE: Imaging protocol: Computed tomography of the abdomen and pelvis without contrast. Radiation optimization: All CT scans at this facility use at least one of these dose optimization techniques: automated exposure control; mA and/or kV adjustment per patient size (includes targeted exams where dose is matched to clinical indication); or iterative reconstruction. COMPARISON: CT abdomen pelvis w con* [id number] 08/15/2018 3:46 PM RADIATION DOSE METRICS: Total DLP (mGy-cm): 919.49 FINDINGS: Lungs: Mild interstitial pulmonary edema and small-moderate right-sided pleural effusion. Diaphragm: No evidence of diaphragmatic defect. Liver: Hepatic cirrhosis with moderate ascites. Gallbladder and biliary ducts: There is cholelithiasis. No inflammatory changes to suggest acute cholecystitis. No intrahepatic or extrahepatic biliary dilatation. Pancreas: Moderately atrophic. Otherwise grossly unremarkable. Spleen: Grossly unremarkable. Adrenal glands: Grossly unremarkable. Kidneys and ureters: There is bilateral renal parenchymal atrophy compatible with end-stage renal disease. No evidence of hydronephrosis or ureteral stone. Stomach and bowel: No evidence of bowel obstruction or perienteric inflammatory changes. There are few loops of thickened small bowel, which may reflect hepatic enteropathy. Moderate rectal wall thickening at the anorectal junction. Appendix: Normal appendix. Intraperitoneal space: Moderate free fluid. No evidence of free air or fluid collection. There is a peritoneal dialysis catheter noted in place with tip in the pelvis. Vasculature: No evidence of aneurysmal dilitation of abdominal aorta. Lymph nodes: No evidence of adenopathy. Urinary bladder: Grossly unremarkable. Reproductive: Grossly unremarkable. Bones/joints: No evidence of acute fracture or aggresive osseous lesion. Moderate multilevel spondylosis of the lumbar spine with facet arthrosis and osteophytosis. 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 Soft tissues: Diffuse soft tissue edema without evidence of fluid collection or hematoma in the superficial soft tissues. CT/CT abdomen pelvis wo con [id number] IMPRESSION: 1. Rectal wall thickening, possibly reflecting edema in the setting of hepatic enteropathy/colopathy. Proctitis could have a similar appearance. 2. Hepatic cirrhosis with moderate ascites. 3. End-stage renal disease with peritoneal dialysis catheter in place.
--- NOTE | 2024-06-21 18:25 | CTR_ITS ---
PROCEDURE INFORMATION: Exam: CT Left Lower Extremity, Foot Exam date and time: 06/21/2024 6:41 PM Age: 58 years old Clinical indication: Other: Necrotic ulcer; Patient HX: Necrotic diabetic ulceration to heel of left foot. History of osteomyelitis. ; Additional info: Foot ulcer necrosis TECHNIQUE: Imaging protocol: CT of the left lower extremity without contrast was performed. Exam focused on the foot. Radiation optimization: All CT scans at this facility use at least one of these dose optimization techniques: automated exposure control; mA and/or kV adjustment per patient size (includes targeted exams where dose is matched to clinical indication); or iterative reconstruction. COMPARISON: CT foot LT wo con* [id number] 12/04/2023 4:36 PM RADIATION DOSE METRICS: Total DLP (mGy-cm): 265.02 FINDINGS: Bones/joints: Postsurgical changes compatible with partial calcanectomy involving the posterior process and body. There is sclerosis of the calcaneus compatible with sequela of chronic osteomyelitis. No evidence of acute osseous erosion though ongoing infection would be difficult to entirely exclude. No evidence of acute osseous erosion of the midfoot or visualized forefoot. No evidence of acute fracture or subluxation. Soft tissues: Large soft tissue defect of the heel with exposure of the calcaneal stump. There is soft tissue edema and skin thickening, particularly along the posteromedial aspect of the distal left lower extremity. No discrete fluid collection to suggest abscess. No evidence of soft tissue air to suggest gas-forming infection/fasciitis. There is diffuse muscular atrophy. CT/CT foot LT wo con* [id number] IMPRESSION: 1. Findings suggestive of chronic osteomyelitis of the calcaneal stump. Ongoing infection would be difficult to exclude.
--- NOTE | 2024-06-21 18:33 | CTR_ITS ---
PROCEDURE INFORMATION: Exam: CT Left Lower Extremity, Ankle Exam date and time: 06/21/2024 6:38 PM Age: 58 years old Clinical indication: Swelling, leg or foot; Patient HX: Swelling/redness of left ankle with necrotic diabetic ulceration of heel. History of osteomyelitis. ; Additional info: Diabetic necrotic wound TECHNIQUE: Imaging protocol: CT of the left lower extremity without contrast was performed. Exam focused on the ankle. Radiation optimization: All CT scans at this facility use at least one of these dose optimization techniques: automated exposure control; mA and/or kV adjustment per patient size (includes targeted exams where dose is matched to clinical indication); or iterative reconstruction. COMPARISON: CT foot LT wo con* [id number] 12/04/2023 4:36 PM RADIATION DOSE METRICS: Total DLP (mGy-cm): 245.85 FINDINGS: Bones/joints: No evidence of acute osseous erosion, fracture or subluxation. There is evidence of remote syndesmotic injury and chronic avulsive injuries of the inferior tips of the medial and lateral malleoli. Partially visualized calcanectomy and sclerosis. Please see separate report of concurrent CT of the left foot for pertinent findings. Soft tissues: Superficial soft tissue edema and skin thickening, which may reflect volume overload or cellulitis in the proper clinical setting. No discrete fluid collection to suggest abscess. No evidence of soft tissue air to suggest gas-forming infection/fasciitis. There has been resection versus chronic rupture of the distal Achilles tendon with retraction and heterotopic ossifications. CT/CT ankle LT wo con* [id number] IMPRESSION: 1. No evidence of acute osseous erosion, fracture or subluxation of the left ankle.
[2024-06-21] MEDS: piperacillin-tazobactam 4.5 GM in sodium chloride 0.9% (plus) 50 ML IV (19:14)
[2024-06-21 19:48] LABS: Ketone (Acetest) Serum Positive (Negative)
--- NOTE | 2024-06-21 19:49 | P.CONIM_ITS ---
Providers/Reason For Consult 2 Consulting Physician/Specialty*: General surgery Reason for Consult*: Left diabetic foot ulcer Primary Care Provider: SERAFIN Reza History of Present Illness History of Present Illness Tim Robison is a 58 year old male with history of end-stage renal disease and liver disease who presents to the hospital with weakness. Patient also have history of a left lower extremity ulceration at the level of the ankle, during evaluation here he was noted to have an elevated white count and his wound appeared to be foul-smelling and therefore I was consulted for possible debridement of the left foot ulcer as podiatry is not available today. Per patient report he has been getting wound care at the wound care clinic but lately he has not been feeling very well and therefore he has not been able to follow-up there. Review of Systems 2 General: Reports: 10 or more systems reviewed and unremarkable except in HPI and below Medications/Allergies Home Medications Medication Instructions Recorded Confirmed Last Taken Type gabapentin 300 mg capsule 300 mg PO BEDTIME 10/11/20 04/28/24 04/27/24 History blood-glucose meter,continuous #1 ea 04/23/22 04/28/24 01/30/23 Rx (Dexcom G6 Asbestos Removal Supervisor) blood-glucose sensor (Dexcom G6 #9 ea 04/23/22 04/28/24 01/30/23 Rx Sensor device) blood-glucose transmitter (Dexcom #3 ea 04/23/22 04/28/24 01/30/23 Rx G6 Transmitter device) albuterol sulfate 90 mcg/actuation 1 puff inhalation Q6H PRN 11/29/22 04/28/24 01/30/23 History aerosol inhaler shortness of breath or wheezing atorvastatin 40 mg tablet 40 mg PO BEDTIME 11/29/22 04/28/24 04/27/24 History famotidine 20 mg tablet 20 mg PO BID 11/29/22 04/28/24 04/27/24 History pregabalin 200 mg capsule (Lyrica) 200 mg PO TID 11/29/22 04/28/24 04/27/24 History Podus Boot to the Left #1 ea 12/03/22 04/28/24 01/30/23 Rx aspirin 81 mg chewable tablet 81 mg PO QAM #60 tabs 12/06/22 04/28/24 04/27/24 Rx insulin lispro 100 unit/mL See Rx Instructions .Route 01/07/23 04/28/24 04/27/24 Rx subcutaneous pen (Humalog KwikPen .COMPLEX #15 mL (U-100) Insulin) clopidogrel 75 mg tablet (Plavix) 75 mg PO QAM 01/18/23 04/28/24 04/27/24 History docusate sodium 100 mg capsule 100 mg PO BID PRN Constipation 01/18/23 04/28/24 01/30/23 History amlodipine 10 mg tablet 10 mg PO QAM 01/30/23 04/28/24 04/27/24 History furosemide 20 mg tablet (Lasix) 20 - 40 mg PO DAILY PRN Edema 01/30/23 04/28/24 Unknown History ergocalciferol (vitamin D2) 1,250 See Rx Instructions .Route .COMPLEX 08/29/23 04/28/24 04/26/24 History mcg (50,000 unit) capsule (Vitamin D2) vit B,C-folic ac 800 mcg-zinc 12.5 1 tab PO DAILY 08/29/23 04/28/24 04/27/24 History mg-selen-D3 2,000 unit-vit E tablet (RenaPlex-D) fluticasone 100 mcg-salmeterol 50 1 inh inhalation BID PRN Shortness 12/04/23 04/28/24 Unknown History mcg/dose blistr powdr for Of Breath inhalation (Advair Diskus) insulin detemir U-100 100 unit/mL 10 unit (0.1 mL) SUBCUT QAM 30 12/09/23 04/28/24 04/27/24 Rx (3 mL) subcutaneous pen (Levemir days #3 mL FlexPen) metoprolol tartrate 100 mg tablet 100 mg PO BID 04/28/24 04/28/24 04/27/24 History patiromer calcium sorbitex 8.4 8.4 g PO DAILY 04/28/24 04/28/24 04/27/24 History gram oral powder packet (Veltassa) sevelamer carbonate 800 mg tablet 800 mg PO TID 04/28/24 04/28/24 04/27/24 History sodium bicarbonate 650 mg tablet 1,300 mg PO BID 04/28/24 04/28/24 04/27/24 History amoxicillin 875 mg-potassium 1 tab PO BID@ #10 tabs 04/29/24 Unknown Rx clavulanate 125 mg tablet sodium hypochlorite 0.125 % 1 applic topical DAILY #473 mL 06/02/24 Unknown Rx solution (Dakin's Solution) Allergies Allergy/AdvReac Type Severity Reaction Status Date / Time Iodinated Contrast Media Allergy ALGY-Hives Verified 12/24/23 13:55 PFSH Acute 2 PFSH: Medical History (Updated 06/21/24 @ 19:27 by SERAFIN Marino) BMI 36.0-36.9,adult Pressure injury of sacral region, stage 2 Weakness of both lower extremities 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 Chronic osteomyelitis GERD (gastroesophageal reflux disease) TIA (transient ischemic attack) Hypertension Anemia Elevated troponin Peritoneal dialysis catheter in situ History of cardiovascular stress test 11/2022 areas of fixed events with very small areas of reversible defect, suggesting myocardial scarring with possible gurjit-infarction ischemia History of echocardiogram 12/2022 EF50%, tech difficult study ESRD (end stage renal disease) on dialysis COVID (~12/2022) NSTEMI (non-ST elevated myocardial infarction) Aspiration pneumonia PVD (peripheral vascular disease) Chronic ulcer of right foot with fat layer exposed 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 Diabetic peripheral neuropathy associated with type 2 diabetes mellitus Congestive heart failure Type 2 diabetes mellitus Diabetic ulcer of foot associated with diabetes mellitus due to underlying condition, with fat layer exposed Chronic osteomyelitis 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 Uncontrolled type 2 diabetes with neuropathy Hyperlipidemia Onychomycosis of nail of digit of hand Neuropathy Surgical History (Updated 04/28/24 @ 13:31 by Mary Bailey MD) History of insertion of tunneled central venous catheter (CVC) with port H/O circumcision H/O colonoscopy 7 yrs ago Status post debridement of ulcer of heel Family History Brother Cancer Sister Lung disease Mother Heart failure Father Chronic kidney failure Denies family history of Anesthesia complication Bleeding disorder Social History Smoking and tobacco/nicotine status: former use of tobacco/nicotine Second hand smoke exposure: No Alcohol intake: never Substance/Drug Use: never Adopted: No Lives independently: Yes Marital status: Single Current occupational status: disabled Vitals/I&O/Wt Last Vital Signs Temp 98.3 F 06/21/24 16:14 Pulse 90 06/21/24 19:14 Resp 18 06/21/24 16:55 BP 138/71 06/21/24 19:14 Pulse Ox 98 06/21/24 19:14 O2 Del Method Room Air 06/21/24 19:14 06/21/24 06/21/24 06/21/24 06:59 14:59 22:59 Intake Total 1000 / 1000 Balance 1000 / 1000 Weight last 48 hrs Weight 245 lb Physical Exam 2 Narrative: General : Patient is well developed , appears debilitated Head : Normal cephalic, a-traumatic. Nose : Mucous membranes are without erythema. Lungs : Equal chest rise bilaterally, no use of accessory muscles, trachea is midline. CV : Rate and rhythm are normal. Abdomen : Soft, ND, NT, dialysis catheter in place no evidence of erythema purulence around the catheter site. Extremities : In the left lower extremity at the level of the ankle there is a very large about 10 x 10 cm ulceration with necrotic margins and some suppuration from the edges, there is exposed calcaneus, there is no crepitus on the tissue there is no evidence of purulence at this time, decreased pulses distally. Data 06/21/24 16:48 06/21/24 16:48 Micro: Microbiology 06/21/24 16:50 Blood Culture - Preliminary Blood SPECIMEN COLLECTED 06/21/24 16:48 Blood Culture - Preliminary Blood SPECIMEN COLLECTED A&P Assessment and plan (1) Diabetes mellitus with foot ulcer and gangrene: Plan After complete history physical examination and review of all available clinical data the following is my assessment. After reviewing the wound is apparent that debridement will be insufficient for this patient. He has chronic osteomyelitis and active infection at this moment, I think he will benefit from a below the knee amputation. Patient was scheduled to see Dr. Garcia last week but unfortunately he was not feeling well and therefore decided not to go to his visit. After extensive discussion with the patient he endorses that he agrees with the proposed below the knee amputation and he was actually waiting for the procedure to be done. I have discussed the case with Dr. Garcia I have informed him over the findings and my assessment for possible need of below the knee amputation, Dr. Garcia has kindly accepted to evaluate the patient tomorrow morning for possible BKA. At the moment of my evaluation there is no evidence of necrotizing soft tissue infection or rapidly progressive infection, patient will benefit from admission to the hospitalist team for IV antibiotics and correction of electrolyte disturbances as well as to continue peritoneal dialysis. Orthopedic surgery will follow-up tomorrow morning for the possibility of BKA. No additional intervention is suspected from the general surgery standpoint. -N.p.o. at midnight for possible intervention tomorrow -Orthopedic surgery consultation for evaluation for BKA, I have discussed the case with Dr. Garcia who has kindly agreed to see the patient -Continued wet-to-dry dressing in the meantime -Pain control as needed -All other management per hospitalist team Coding Level of Care Code 22221 Diagnoses Diabetes mellitus with foot ulcer and gangrene E11.621; E11.52; L97.509
--- NOTE | 2024-06-21 20:09 | P.HP_ITS ---
Providers/Chief Complaint 2 Primary Care Provider: SERAFIN Reza Chief Complaint: weakness History of Present Illness Pleasant 58-year-old gentleman with history of DM 2, ESRD on peritoneal dialysis, produces minimal urine, CAD, PVD, TIA, HLD, other medical problems, overall has had decline in his health and mobility over the past year or so, when he goes out he uses a walker to get to his truck, at home mostly getting around with some assistance of the walker but a lot of the time in a wheelchair. Last 2 to 3 days he has had diarrhea, yesterday he was too weak to get himself peritoneal dialysis. He has been weak to the point that he was not able to get out of bed, laying there soiled. In ER he is found to have leukocytosis 18.79. Hyponatremia sodium 124. Potassium 5.3, glucose 418, lactic acid 1.4. Magnesium 1.6. Alk phos 154. Protein 5.9. Albumin 2.1. With history of osteomyelitis, diabetic wound of the left foot, has been unable to go to wound care clinic. He has noted to have large ulcer of the left heel, malodorous discharge. Foot CT suggestive of chronic osteomyelitis of calcaneal stump without fracture or subluxation of the ankle. CT abdomen pelvis with rectal wall thickening, possibly edema in the setting of hepatic enteropathy/colopathy. Proctitis could have similar appearance. Hepatic cirrhosis and moderate ascites. ESRD, PD catheter. Review of Systems 2 Const: Reports: fatigue and other (Generally weak.); Denies: fever(s), chills, body aches or malaise ENMT: Denies: throat pain, oral sores or ear or mastoid pain Card: Denies: chest pain, edema, pre-syncope or dyspnea on exertion Resp: Denies: dyspnea, productive cough, change in phlegm color or hemoptysis GI: Reports: diarrhea; Denies: abdominal pain, nausea, vomiting, constipation, hematochezia or melena : Denies: flank pain, difficulty urinating, urinary frequency or hematuria Musc: Denies: back pain, joint swelling or joint redness Skin/Breast: Denies: rash or new lesions Neuro: Denies: headache(s), numbness in extremities, weakness in extremities, dizziness, confusion or seizure-like activity Medications/Allergies Home Medications Medication Instructions Recorded Confirmed Last Taken Type gabapentin 300 mg capsule 300 mg PO BEDTIME 10/11/20 04/28/24 04/27/24 History blood-glucose meter,continuous #1 ea 04/23/22 04/28/24 01/30/23 Rx (Dexcom G6 Security Incident Response Specialist) blood-glucose sensor (Dexcom G6 #9 ea 04/23/22 04/28/24 01/30/23 Rx Sensor device) blood-glucose transmitter (Dexcom #3 ea 04/23/22 04/28/24 01/30/23 Rx G6 Transmitter device) albuterol sulfate 90 mcg/actuation 1 puff inhalation Q6H PRN 11/29/22 04/28/24 01/30/23 History aerosol inhaler shortness of breath or wheezing atorvastatin 40 mg tablet 40 mg PO BEDTIME 11/29/22 04/28/24 04/27/24 History famotidine 20 mg tablet 20 mg PO BID 11/29/22 04/28/24 04/27/24 History pregabalin 200 mg capsule (Lyrica) 200 mg PO TID 11/29/22 04/28/24 04/27/24 History Podus Boot to the Left #1 ea 12/03/22 04/28/24 01/30/23 Rx aspirin 81 mg chewable tablet 81 mg PO QAM #60 tabs 12/06/22 04/28/24 04/27/24 Rx insulin lispro 100 unit/mL See Rx Instructions .Route 01/07/23 04/28/24 04/27/24 Rx subcutaneous pen (Humalog KwikPen .COMPLEX #15 mL (U-100) Insulin) clopidogrel 75 mg tablet (Plavix) 75 mg PO QAM 01/18/23 04/28/24 04/27/24 History docusate sodium 100 mg capsule 100 mg PO BID PRN Constipation 01/18/23 04/28/24 01/30/23 History amlodipine 10 mg tablet 10 mg PO QAM 01/30/23 04/28/24 04/27/24 History furosemide 20 mg tablet (Lasix) 20 - 40 mg PO DAILY PRN Edema 01/30/23 04/28/24 Unknown History ergocalciferol (vitamin D2) 1,250 See Rx Instructions .Route .COMPLEX 08/29/23 04/28/24 04/26/24 History mcg (50,000 unit) capsule (Vitamin D2) vit B,C-folic ac 800 mcg-zinc 12.5 1 tab PO DAILY 08/29/23 04/28/24 04/27/24 History mg-selen-D3 2,000 unit-vit E tablet (RenaPlex-D) fluticasone 100 mcg-salmeterol 50 1 inh inhalation BID PRN Shortness 12/04/23 04/28/24 Unknown History mcg/dose blistr powdr for Of Breath inhalation (Advair Diskus) insulin detemir U-100 100 unit/mL 10 unit (0.1 mL) SUBCUT QAM 30 12/09/23 04/28/24 04/27/24 Rx (3 mL) subcutaneous pen (Levemir days #3 mL FlexPen) metoprolol tartrate 100 mg tablet 100 mg PO BID 04/28/24 04/28/24 04/27/24 History patiromer calcium sorbitex 8.4 8.4 g PO DAILY 04/28/24 04/28/24 04/27/24 History gram oral powder packet (Veltassa) sevelamer carbonate 800 mg tablet 800 mg PO TID 04/28/24 04/28/24 04/27/24 History sodium bicarbonate 650 mg tablet 1,300 mg PO BID 04/28/24 04/28/24 04/27/24 History amoxicillin 875 mg-potassium 1 tab PO BID@ #10 tabs 04/29/24 Unknown Rx clavulanate 125 mg tablet sodium hypochlorite 0.125 % 1 applic topical DAILY #473 mL 06/02/24 Unknown Rx solution (Dakin's Solution) Allergies Allergy/AdvReac Type Severity Reaction Status Date / Time Iodinated Contrast Media Allergy ALGY-Hives Verified 12/24/23 13:55 PFSH Acute 2 PFSH: Medical History BMI 36.0-36.9,adult Pressure injury of sacral region, stage 2 Weakness of both lower extremities 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 Chronic osteomyelitis GERD (gastroesophageal reflux disease) TIA (transient ischemic attack) Hypertension Anemia Elevated troponin Peritoneal dialysis catheter in situ History of cardiovascular stress test 11/2022 areas of fixed events with very small areas of reversible defect, suggesting myocardial scarring with possible gurjit-infarction ischemia History of echocardiogram 12/2022 EF50%, tech difficult study ESRD (end stage renal disease) on dialysis COVID (~12/2022) NSTEMI (non-ST elevated myocardial infarction) Aspiration pneumonia PVD (peripheral vascular disease) Chronic ulcer of right foot with fat layer exposed 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 Diabetic peripheral neuropathy associated with type 2 diabetes mellitus Congestive heart failure Type 2 diabetes mellitus Diabetic ulcer of foot associated with diabetes mellitus due to underlying condition, with fat layer exposed Chronic osteomyelitis 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 Uncontrolled type 2 diabetes with neuropathy Hyperlipidemia Onychomycosis of nail of digit of hand Neuropathy Surgical History History of insertion of tunneled central venous catheter (CVC) with port H/O circumcision H/O colonoscopy 7 yrs ago Status post debridement of ulcer of heel Family History Brother Cancer Sister Lung disease Mother Heart failure Father Chronic kidney failure Denies family history of Anesthesia complication Bleeding disorder Social History Smoking and tobacco/nicotine status: former use of tobacco/nicotine Second hand smoke exposure: No Alcohol intake: never Substance/Drug Use: never Adopted: No Lives independently: Yes Marital status: Single Current occupational status: disabled Vitals/I&O/Wt Last Vital Signs Temp 98.3 F 06/21/24 16:14 Pulse 90 06/21/24 19:14 Resp 18 06/21/24 16:55 BP 138/71 06/21/24 19:14 Pulse Ox 98 06/21/24 19:14 O2 Del Method Room Air 06/21/24 19:14 06/21/24 06/21/24 06/21/24 06:59 14:59 22:59 Intake Total 1000 / 1000 Balance 1000 / 1000 Weight last 48 hrs Weight 111.13 kg Physical Exam 2 Narrative: Accompanied by his family. Const: COMMON NORMALS: patient oriented x3 and alert GENERAL APPEARANCE: c ooperative ORIENTATION/CONSCIOUSNESS: Yes awake OTHER: Appears generally weak. HENMT: COMMON NORMALS: oropharynx normal Neck/C-Spine: COMMON NORMALS: no JVD Resp: COMMON NORMALS: normal respiratory effort and clear to auscultation bilaterally AUSCULTATION: clear to auscultation bilaterally Cardio: COMMON NORMALS: no JVD, regular rhythm, S1 normal heart sound present, S2 normal heart sound present and No murmurs present (Cardio) RHYTHM: regular rhythm HEART SOUNDS: S1 normal heart sound present and S2 normal heart sound present GI: COMMON NORMALS: Normal to inspection, nondistended, normoactive bowel sounds present, Soft to palpation and non-tender PALPATION: Yes Soft to palpation Extremity: COMMON NORMALS: no joint enlargement and no pedal edema N ARRATIVE EXTREMITY EXAM: Large ulcer of left heel with calcaneus exposure. OTHER: Also tiny pressure ulcer with ulceration on right lateral malleolus without surrounding erythema, no drainage. Neuro: COMMON NORMALS: patient oriented x3 and moves all extremities S ENSORIUM/ORIENTATION: Yes alert Skin: COMMON NORMALS: no rashes or lesions noted GENERAL SKIN EXAM: no rashes or lesions noted Data 06/21/24 16:48 06/21/24 16:48 Micro: Microbiology 06/21/24 16:50 Blood Culture - Preliminary Blood SPECIMEN COLLECTED 06/21/24 16:48 Blood Culture - Preliminary Blood SPECIMEN COLLECTED A&P Assessment and plan (1) DKA (diabetic ketoacidosis): Reviewed vitals, CBC, CMP, magnesium, serum ketones, ER provider note, discussed with ER provider. Noted elevated anion gap 20.3, bicarb is low at 15. Serum ketones positive. Potassium 5.3. Sodium 124. Urine pending although he does not produce much urine. Glucose 418. As per discussion with him does not have history of DKA in the past at the time of discussion of consideration of DKA. Admit to intensive care unit, insulin drip, monitor glucose, treat for risk of hyper or hypoglycemia, electrolyte abnormality. Follow-up chemistries. Replace magnesium. Repeat magnesium level. Caution with IV hydration given ESRD on peritoneal dialysis. Received 1 L of fluid in ER. Will continue gentle IV hydration. Monitor for risk of fluid overload, respiratory decompensation. (2) Diabetes mellitus with foot ulcer and gangrene: Large ulceration of the left heel with calcaneus exposure, malodorous discharge, with elevated WBC count up to 18.8. Generalized weakness. Reviewed vitals, CBC, CMP, surgical consultation was obtained in ER, discussed with surgeon, reviewed surgery consultation note, reviewed CT, surgeon has also discussed with orthopedic surgery, pending consultation regarding removal and consideration of with recommendation of left BKA amputationa as per discussion with ER physician and discussion of surgeon with patient. In the meantime correct metabolic abnormalities, work on DKA as above. Hyponatremia, repeat sodium. He reports he otherwise has not been very mobile, has not had any chest pain or pressure. Weekend in the last few days by acute illness, otherwise over the last year he has mostly been using a wheelchair with some walker at home, and using a walker to get to his truck when going outside. Obtain baseline EKG, troponin. NT- proBNP will not be helpful with ESRD. (3) ESRD on peritoneal dialysis: Discussed with buffer chrome, appreciate consultation. He denies any issues with peritoneal dialysis catheter. No surrounding erythema, no drainage. With leukocytosis, malaise, generalized weakness, requesting peritoneal fluid culture to be obtained. (4) Hyponatremia: Sodium 124. In the setting of suspected moderate DKA. Suspected also hypovolemia with generalized weakness, unable to get out of bed at home, low oral intake, received 1 L fluid hydration in ER. Recheck chemistry. (5) Leukocytosis: Leukocytosis 18.8, with generalized weakness, malaise, diarrhea, large worsening diabetic foot gangrenous wound over the left foot with malodorous discharge. Blood cultures have been collected. Started on Zosyn. Continue for coverage with Zosyn, vancomycin. Requesting also collection of culture from peritoneal dialysate. Additionally rash on his bottom, possible cellulitis, was unable to get her bed, laying there soiled. Empiric coverage with antibiotics as above. (6) Diarrhea: Watery diarrhea over the last several days. Denies vomiting. No abdominal pain. Does report dark/black appearing stool. On aspirin and Plavix at home. Hemoglobin noted 12.6, body with also suspected hypovolemia. Platelets 293. C. difficile reviewed, negative. Requesting stool Salmonella/Shigella/Campylobacter. As well as stool for occult blood for possible GI bleed. Reassess blood counts. Plan Physical deconditioning: PT assessment. Case management consultation. Liver cirrhosis: Appearance of cirrhotic liver on CT. Does not drink alcohol. Reassess blood counts. Electrolytes. Obtain hepatitis panel. DM 2, normally on 55 units long-acting insulin in the evening as well as 5 units 3 times daily short acting Premeal insulin. Currently DKA as above, insulin drip. CAD, on aspirin, Plavix, continue. PVD, continue aspirin, Plavix TIA, continue aspirin, Plavix HLD, Other medical problems Attestations 2 Medical Necessity Statement*: Admission of over 2 midnights anticipated for assessment management of DKA, suspected infection with worsening left diabetic foot ulceration with gangrene, further assessment of other possible source of infection, diarrhea, hyponatremia and other metabolic derangements. Coding Level of Care Code Critical Care >/= 30 minutes Critical care time (in minutes): 35 The high probability of a clinically significant, sudden or life threatening deterioration, as referenced in this documentation, required my full and direct attention, intervention and personal management. The critical care time shown is in addition to time spent performing any reported separately billable procedures and includes the following: [x] Data and vital sign review and interpretation [x ] Patient assessment, examination and intervention [x] Medication orders and management [x] Patient/Family updates as able [x] Care Coordination and Documentation. Diagnoses DKA (diabetic ketoacidosis) E11.10 Diabetes mellitus with foot ulcer and gangrene E11.621; E11.52; L97.509 ESRD on peritoneal dialysis N18.6; Z99.2 Hyponatremia E87.1 Leukocytosis D72.829 Diarrhea R19.7
[2024-06-21 20:10] LABS: C.Diff PCR (Lab) NEGATIVE (Negative)
--- NOTE | 2024-06-21 21:10 | P.CONIM_ITS ---
Providers/Reason For Consult 2 Consulting Physician/Specialty*: Luis M Garcia DO/orthopedic surgery Reason for Consult*: Chronic nonhealing chronic osteomyelitis left calcaneus, consultation for left BKA Requesting Physician: Dr. Junior?General Surgery Attending Physician: Indio Burroughs Primary Care Provider: SERAFIN Reza History of Present Illness History of Present Illness Tim Robison is a 58 year old male with past medical history of diabetes type 2, end-stage renal disease is on peritoneal dialysis, PVD, TIA, hyperlipidemia. Patient presents to the emergency department with ongoing fatigue and weakness and feeling ill. Patient has a chronic diabetic foot wound ulcer to the left calcaneus with exposed calcaneal bone. Patient has chronic osteomyelitis of the calcaneal stump he was seen evaluate in the emergency department and general surgery was initially consulted for evaluation at this point time they feel as though an orthopedic consultation for below the knee amputation would be appropriate. Patient initially then review of his record has been following up with wound care and at his last note was set up to follow-up in my or orthopedic practice for a consultation for left below the knee amputation by Dr. Carballo of her medical collections specialist. At this point time presents emergency department has an elevated WBC count of 18.79. He has an albumin of 2.1. Currently getting admitted by the hospitalist team in [facility]. Patient clinically has a chronic appearing wound there is no signs of any acute progressing infection and is not worsened over the past couple weeks. Patient complains of feeling weak fatigued and generalized ill lately. At this point time orthopedics was consulted for evaluation and treatment recommendations with request to perform a left below the knee amputation. Patient this point time states he is ready to proceed with a left BKA. Review of Systems 2 General: Reports: 10 or more systems reviewed and unremarkable except in HPI and below Medications/Allergies Home Medications Medication Instructions Recorded Confirmed Last Taken Type gabapentin 300 mg capsule 300 mg PO BEDTIME 10/11/20 04/28/24 04/27/24 History blood-glucose meter,continuous #1 ea 04/23/22 04/28/24 01/30/23 Rx (Dexcom G6 Power Truck Driver) blood-glucose sensor (Dexcom G6 #9 ea 04/23/22 04/28/24 01/30/23 Rx Sensor device) blood-glucose transmitter (Dexcom #3 ea 04/23/22 04/28/24 01/30/23 Rx G6 Transmitter device) albuterol sulfate 90 mcg/actuation 1 puff inhalation Q6H PRN 11/29/22 04/28/24 01/30/23 History aerosol inhaler shortness of breath or wheezing atorvastatin 40 mg tablet 40 mg PO BEDTIME 11/29/22 04/28/24 04/27/24 History famotidine 20 mg tablet 20 mg PO BID 11/29/22 04/28/24 04/27/24 History pregabalin 200 mg capsule (Lyrica) 200 mg PO TID 11/29/22 04/28/24 04/27/24 History Podus Boot to the Left #1 ea 12/03/22 04/28/24 01/30/23 Rx aspirin 81 mg chewable tablet 81 mg PO QAM #60 tabs 12/06/22 04/28/24 04/27/24 Rx insulin lispro 100 unit/mL See Rx Instructions .Route 01/07/23 04/28/24 04/27/24 Rx subcutaneous pen (Humalog KwikPen .COMPLEX #15 mL (U-100) Insulin) clopidogrel 75 mg tablet (Plavix) 75 mg PO QAM 01/18/23 04/28/24 04/27/24 History docusate sodium 100 mg capsule 100 mg PO BID PRN Constipation 01/18/23 04/28/24 01/30/23 History amlodipine 10 mg tablet 10 mg PO QAM 01/30/23 04/28/24 04/27/24 History furosemide 20 mg tablet (Lasix) 20 - 40 mg PO DAILY PRN Edema 01/30/23 04/28/24 Unknown History ergocalciferol (vitamin D2) 1,250 See Rx Instructions .Route .COMPLEX 08/29/23 04/28/24 04/26/24 History mcg (50,000 unit) capsule (Vitamin D2) vit B,C-folic ac 800 mcg-zinc 12.5 1 tab PO DAILY 08/29/23 04/28/24 04/27/24 History mg-selen-D3 2,000 unit-vit E tablet (RenaPlex-D) fluticasone 100 mcg-salmeterol 50 1 inh inhalation BID PRN Shortness 12/04/23 04/28/24 Unknown History mcg/dose blistr powdr for Of Breath inhalation (Advair Diskus) insulin detemir U-100 100 unit/mL 10 unit (0.1 mL) SUBCUT QAM 30 12/09/23 04/28/24 04/27/24 Rx (3 mL) subcutaneous pen (Levemir days #3 mL FlexPen) metoprolol tartrate 100 mg tablet 100 mg PO BID 04/28/24 04/28/24 04/27/24 History patiromer calcium sorbitex 8.4 8.4 g PO DAILY 04/28/24 04/28/24 04/27/24 History gram oral powder packet (Veltassa) sevelamer carbonate 800 mg tablet 800 mg PO TID 04/28/24 04/28/24 04/27/24 History sodium bicarbonate 650 mg tablet 1,300 mg PO BID 04/28/24 04/28/24 04/27/24 History amoxicillin 875 mg-potassium 1 tab PO BID@ #10 tabs 04/29/24 Unknown Rx clavulanate 125 mg tablet sodium hypochlorite 0.125 % 1 applic topical DAILY #473 mL 06/02/24 Unknown Rx solution (Dakin's Solution) Allergies Allergy/AdvReac Type Severity Reaction Status Date / Time Iodinated Contrast Media Allergy ALGY-Hives Verified 12/24/23 13:55 PFSH Acute 2 PFSH: Medical History BMI 36.0-36.9,adult Pressure injury of sacral region, stage 2 Weakness of both lower extremities 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 Chronic osteomyelitis GERD (gastroesophageal reflux disease) TIA (transient ischemic attack) Hypertension Anemia Elevated troponin Peritoneal dialysis catheter in situ History of cardiovascular stress test 11/2022 areas of fixed events with very small areas of reversible defect, suggesting myocardial scarring with possible gurjit-infarction ischemia History of echocardiogram 12/2022 EF50%, tech difficult study ESRD (end stage renal disease) on dialysis COVID (~12/2022) NSTEMI (non-ST elevated myocardial infarction) Aspiration pneumonia PVD (peripheral vascular disease) Chronic ulcer of right foot with fat layer exposed 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 Diabetic peripheral neuropathy associated with type 2 diabetes mellitus Congestive heart failure Type 2 diabetes mellitus Diabetic ulcer of foot associated with diabetes mellitus due to underlying condition, with fat layer exposed Chronic osteomyelitis 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 Uncontrolled type 2 diabetes with neuropathy Hyperlipidemia Onychomycosis of nail of digit of hand Neuropathy Surgical History History of insertion of tunneled central venous catheter (CVC) with port H/O circumcision H/O colonoscopy 7 yrs ago Status post debridement of ulcer of heel Family History Brother Cancer Sister Lung disease Mother Heart failure Father Chronic kidney failure Denies family history of Anesthesia complication Bleeding disorder Social History Smoking and tobacco/nicotine status: former use of tobacco/nicotine Second hand smoke exposure: No Alcohol intake: never Substance/Drug Use: never Adopted: No Lives independently: Yes Marital status: Single Current occupational status: disabled Vitals/I&O/Wt Last Vital Signs Temp 98.3 F 06/21/24 16:14 Pulse 90 06/21/24 19:14 Resp 18 06/21/24 16:55 BP 138/71 06/21/24 19:14 Pulse Ox 98 06/21/24 19:14 O2 Del Method Room Air 06/21/24 19:14 06/21/24 06/21/24 06/21/24 06:59 14:59 22:59 Intake Total 1000 / 1000 Balance 1000 / 1000 Weight last 48 hrs Weight 245 lb Physical Exam 2 Narrative: Orthopedic examination: Patient had dressing to the left heel which was subsequently taken down. Patient has a large calcaneal diabetic foot ulceration with exposed calcaneus bone. There are small area of periwound necrosis there is no signs of proximal tracking erythema this is focalized to the calcaneus wound with a significant soft tissue wound defect. He does have distal pulses at the posterior tib as well as dorsal pedis that is 2+ today. He does have diffuse neuropathy decree sensation about the left foot. There is no subcutaneous gas emphysema or bullae noted proximally. His compartments to the left lower leg are soft and compressible no evidence of erythema tracking proximally. Patient does have periwound erythema just locally around the edges of the wound. Patient has some mild vascular insufficiency changes on the shins of the tibia but overall reasonably appearance skin with no wounds or ulcerations proximally that would affect healing of a BKA. Patient can plantarflex and dorsiflex ankle. Secondary survey examination unremarkable does have a peritoneal dialysis catheter. Data 06/21/24 16:48 06/21/24 16:48 Micro: Microbiology 06/21/24 16:50 Blood Culture - Preliminary Blood SPECIMEN COLLECTED 06/21/24 16:48 Blood Culture - Preliminary Blood SPECIMEN COLLECTED Other CT: Radiologist's impression: Ordering Provider/Ordering MD: Damion Weathers NP Date of Service: 06/21/24 Procedure(s): CT ankle LT wo con* [id number] Accession Number(s): [id number] Report Number: [id number] PROCEDURE INFORMATION: Exam: CT Left Lower Extremity, Ankle Exam date and time: 06/21/2024 6:38 PM Age: 58 years old Clinical indication: Swelling, leg or foot; Patient HX: Swelling/redness of left ankle with necrotic diabetic ulceration of heel. History of osteomyelitis. ; Additional info: Diabetic necrotic wound TECHNIQUE: Imaging protocol: CT of the left lower extremity without contrast was performed. Exam focused on the ankle. Radiation optimization: All CT scans at this facility use at least one of these dose optimization techniques: automated exposure control; mA and/or kV adjustment per patient size (includes targeted exams where dose is matched to clinical indication); or iterative reconstruction. COMPARISON: CT foot LT wo con* [id number] 12/04/2023 4:36 PM RADIATION DOSE METRICS: Total DLP (mGy-cm): 245.85 FINDINGS: Bones/joints: No evidence of acute osseous erosion, fracture or subluxation. There is evidence of remote syndesmotic injury and chronic avulsive injuries of the inferior tips of the medial and lateral malleoli. Partially visualized calcanectomy and sclerosis. Please see separate report of concurrent CT of the left foot for pertinent findings. Soft tissues: Superficial soft tissue edema and skin thickening, which may reflect volume overload or cellulitis in the proper clinical setting. No discrete fluid collection to suggest abscess. No evidence of soft tissue air to suggest gas-forming infection/fasciitis. There has been resection versus chronic rupture of the distal Achilles tendon with retraction and heterotopic ossifications. CT/CT ankle LT wo con* [id number] IMPRESSION: 1. No evidence of acute osseous erosion, fracture or subluxation of the left ankle. Ordering Provider/Ordering MD: Damion Weathers NP Date of Service: 06/21/24 Procedure(s): CT foot LT wo con* [id number] Accession Number(s): [id number] Report Number: [id number] PROCEDURE INFORMATION: Exam: CT Left Lower Extremity, Foot Exam date and time: 06/21/2024 6:41 PM Age: 58 years old Clinical indication: Other: Necrotic ulcer; Patient HX: Necrotic diabetic ulceration to heel of left foot. History of osteomyelitis. ; Additional info: Foot ulcer necrosis TECHNIQUE: Imaging protocol: CT of the left lower extremity without contrast was performed. Exam focused on the foot. Radiation optimization: All CT scans at this facility use at least one of these dose optimization techniques: automated exposure control; mA and/or kV adjustment per patient size (includes targeted exams where dose is matched to clinical indication); or iterative reconstruction. COMPARISON: CT foot LT wo con* [id number] 12/04/2023 4:36 PM RADIATION DOSE METRICS: Total DLP (mGy-cm): 265.02 FINDINGS: Bones/joints: Postsurgical changes compatible with partial calcanectomy involving the posterior process and body. There is sclerosis of the calcaneus compatible with sequela of chronic osteomyelitis. No evidence of acute osseous erosion though ongoing infection would be difficult to entirely exclude. No evidence of acute osseous erosion of the midfoot or visualized forefoot. No evidence of acute fracture or subluxation. Soft tissues: Large soft tissue defect of the heel with exposure of the calcaneal stump. There is soft tissue edema and skin thickening, particularly along the posteromedial aspect of the distal left lower extremity. No discrete fluid collection to suggest abscess. No evidence of soft tissue air to suggest gas-forming infection/fasciitis. There is diffuse muscular atrophy. CT/CT foot LT wo con* [id number] IMPRESSION: 1. Findings suggestive of chronic osteomyelitis of the calcaneal stump. Ongoing infection would be difficult to exclude. A&P Assessment and plan (1) Osteomyelitis of left foot: Qualifiers: Osteomyelitis type: chronic multifocal Qualified Code(s): M86.372 - Chronic multifocal osteomyelitis, left ankle and foot (2) Diabetic foot ulcer: (3) Diabetes mellitus with foot ulcer and gangrene: (4) DKA (diabetic ketoacidosis): (5) PVD (peripheral vascular disease): Plan N.p.o. at midnight IV antibiotics per primary team Admission by hospitalist General Surgery on board Orthopedics consulted for left BKA CT scans left foot and ankle reviewed chronic osteomyelitis changes of the calcaneus with significant soft tissue defect no subcutaneous gas emphysema or abscess appreciated Labs reviewed Plan to proceed to the OR tomorrow for left BKA MDM: Patient is a 58-year-old gentleman who has a chronic nonhealing wound to the left heel this is a chronic diabetic foot ulceration and it has been treated with wound care. Unfortunately he has developed chronic osteomyelitis in this area and has a large soft tissue defect has been seen outpatient in the wound clinic and unfortunately his neck steps was getting referred to outpatient for a scheduled left BKA. He was scheduled set to see me in the office earlier this month but unfortunately had been feeling ill and did not show up. He now presents emergency department with continued fatigue and illness he is admitted by the hospitalist general surgery initially consulted for diabetic foot ulceration and subsequently recommend surgical intervention by orthopedics for a left BKA. At this point in time I feel the next best step for this patient given this is likely source of WBC elevation and ongoing illness is his chronic osteomyelitis of his calcaneus unfortunately given this location defect and chronic osteomyelitis and amputation would be his next best step of rating of this infection. As a result through shared decision-making we talked about treatment options for his continued nonoperative versus operative invention patient currently is stable at this point in time through shared decision making he elects proceed with a left below the knee amputation. He does understand the ins and outs of the procedure the risk benefits complication alternatives with surgery. Risk of surgery include but not limited to make a better make it worse injury, phantom pain, wound dehiscence, persistent infection, further surgeries, blood loss. Understanding these risks with surgery he elects proceed with surgical intervention. All questions have been answered at this time. Will go ahead and have patient be n.p.o. at midnight with a plan for OR tomorrow for left BKA. Patient understands is the most optimal level with goals of hopefully after his wound heals that we could potentially get him set up with the prosthesis I do feel as though his soft tissue envelope at the below the knee amputation does appear to be amenable for possible healing but given his diabetes peripheral vascular disease he does understand that this can have a complicated postoperative course requiring wound management for further healing if the wound does fail to heal primarily from the surgery. Ultimately understands and agrees with current plan. Questions answered. Proceed with OR tomorrow. Coding Level of Care Code Acute Code for [facility] Fwd Diagnoses Chronic multifocal osteomyelitis of left foot M86.372 Osteomyelitis type: chronic multifocal Diabetic foot ulcer E11.621; L97.509 Diabetes mellitus with foot ulcer and gangrene E11.621; E11.52; L97.509 DKA (diabetic ketoacidosis) E11.10 PVD (peripheral vascular disease) I73.9 Time Spent (min) 55
[2024-06-21 21:27] LABS: Troponin(5th) Baseline 142 ng/L (0-15)
--- NOTE | 2024-06-21 22:15 | P.CONIM_ITS ---
Providers/Reason For Consult 2 Consulting Physician/Specialty*: kommana/Nephrology Reason for Consult*: ESRD - PD Attending Physician: Indio Burroughs Primary Care Provider: SERAFIN Reza History of Present Illness History of Present Illness Tim Robison is a 58 year old male Patient is a 58-year-old male with past medical history of diabetes hypertension, end-stage renal disease on peritoneal dialysis, coronary artery disease TIA peripheral vascular disease dyslipidemia scented to the emergency department due to generalized weakness. In the emergency department he has elevated WBC count of 10,000. He did not do peritoneal dialysis for 3 days in a row. Lab data is significant for sodium of 120 potassium 5.3 lactic acid 1.4 albumin of 2.1. He has a history of osteomyelitis and diabetic left foot wound. He again was noticed to have a large ulcer on the left heel. CT suggestive of chronic osteomyelitis. Review of Systems 2 Narrative: Other review systems negative Medications/Allergies Home Medications Medication Instructions Recorded Confirmed Last Taken Type gabapentin 300 mg capsule 300 mg PO BEDTIME 10/11/20 06/22/24 04/27/24 History blood-glucose meter,continuous #1 ea 04/23/22 06/22/24 01/30/23 Rx (Dexcom G6 Car Sweeper) blood-glucose sensor (Dexcom G6 #9 ea 04/23/22 06/22/24 01/30/23 Rx Sensor device) blood-glucose transmitter (Dexcom #3 ea 04/23/22 06/22/24 01/30/23 Rx G6 Transmitter device) atorvastatin 40 mg tablet 40 mg PO BEDTIME 11/29/22 06/22/24 06/20/24 History famotidine 20 mg tablet 20 mg PO BID 11/29/22 06/22/24 06/21/24 History pregabalin 200 mg capsule (Lyrica) 200 mg PO TID 11/29/22 06/22/24 06/21/24 History Podus Boot to the Left #1 ea 12/03/22 06/22/24 01/30/23 Rx aspirin 81 mg chewable tablet 81 mg PO QAM #60 tabs 12/06/22 06/22/24 06/21/24 Rx insulin lispro 100 unit/mL See Rx Instructions .Route 01/07/23 06/22/24 04/27/24 Rx subcutaneous pen (Humalog KwikPen .COMPLEX #15 mL (U-100) Insulin) docusate sodium 100 mg capsule 100 mg PO BID PRN Constipation 01/18/23 06/22/24 01/30/23 History amlodipine 10 mg tablet 10 mg PO QAM 01/30/23 06/22/24 06/21/24 History vit B,C-folic ac 800 mcg-zinc 12.5 1 tab PO DAILY 08/29/23 06/22/24 06/21/24 History mg-selen-D3 2,000 unit-vit E tablet (RenaPlex-D) fluticasone 100 mcg-salmeterol 50 1 inh inhalation BID PRN Shortness 12/04/23 06/22/24 Unknown History mcg/dose blistr powdr for Of Breath inhalation (Advair Diskus) insulin detemir U-100 100 unit/mL 10 unit (0.1 mL) SUBCUT QAM 30 12/09/23 06/22/24 06/21/24 Rx (3 mL) subcutaneous pen (Levemir days #3 mL FlexPen) metoprolol tartrate 100 mg tablet 100 mg PO BID 04/28/24 06/22/24 06/21/24 History patiromer calcium sorbitex 8.4 8.4 g PO DAILY 04/28/24 06/22/24 06/21/24 History gram oral powder packet (Veltassa) sevelamer carbonate 800 mg tablet 800 mg PO TID 04/28/24 06/22/24 06/21/24 History sodium bicarbonate 650 mg tablet 1,300 mg PO BID 04/28/24 06/22/24 04/27/24 History sodium hypochlorite 0.125 % 1 applic topical DAILY #473 mL 06/02/24 06/22/24 Unknown Rx solution (Dakin's Solution) Allergies Allergy/AdvReac Type Severity Reaction Status Date / Time Iodinated Contrast Media Allergy ALGY-Hives Verified 12/24/23 13:55 PFSH Acute 2 PFSH: Medical History BMI 36.0-36.9,adult Pressure injury of sacral region, stage 2 Weakness of both lower extremities 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 Chronic osteomyelitis GERD (gastroesophageal reflux disease) TIA (transient ischemic attack) Hypertension Anemia Elevated troponin Peritoneal dialysis catheter in situ History of cardiovascular stress test 11/2022 areas of fixed events with very small areas of reversible defect, suggesting myocardial scarring with possible gurjit-infarction ischemia History of echocardiogram 12/2022 EF50%, tech difficult study ESRD (end stage renal disease) on dialysis COVID (~12/2022) NSTEMI (non-ST elevated myocardial infarction) Aspiration pneumonia PVD (peripheral vascular disease) Chronic ulcer of right foot with fat layer exposed 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 Diabetic peripheral neuropathy associated with type 2 diabetes mellitus Congestive heart failure Type 2 diabetes mellitus Diabetic ulcer of foot associated with diabetes mellitus due to underlying condition, with fat layer exposed Chronic osteomyelitis 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 Uncontrolled type 2 diabetes with neuropathy Hyperlipidemia Onychomycosis of nail of digit of hand Neuropathy Surgical History History of insertion of tunneled central venous catheter (CVC) with port H/O circumcision H/O colonoscopy 7 yrs ago Status post debridement of ulcer of heel Family History Brother Cancer Sister Lung disease Mother Heart failure Father Chronic kidney failure Denies family history of Anesthesia complication Bleeding disorder Social History Smoking and tobacco/nicotine status: former use of tobacco/nicotine Second hand smoke exposure: No Alcohol intake: never Substance/Drug Use: never Adopted: No Lives independently: Yes Marital status: Single Current occupational status: disabled Vitals/I&O/Wt Last Vital Signs Temp 98.3 F 06/21/24 16:14 Pulse 86 06/21/24 21:10 Resp 18 06/21/24 16:55 BP 135/97 06/21/24 21:10 Pulse Ox 95 06/21/24 21:10 O2 Del Method Room Air 06/21/24 21:10 06/21/24 06/21/24 06/21/24 06:59 14:59 22:59 Intake Total 1050 / 1050 Balance 1050 / 1050 Weight last 48 hrs Weight 111.13 kg Physical Exam 2 Narrative: Patient is awake alert, no distress HEENT S1-S2 regular rate and rhythm per report Left foot wound Data 06/22/24 03:59 06/22/24 03:59 Micro: Microbiology 06/21/24 16:50 Blood Culture - Preliminary Blood SPECIMEN COLLECTED 06/21/24 16:48 Blood Culture - Preliminary Blood SPECIMEN COLLECTED A&P Assessment and plan (1) ESRD (end stage renal disease): 1. End-stage renal disease: On peritoneal dialysis, will do 1 exchange with 2.5 % solution for 6 hours dwell. -Patient now with left foot infection and was unable to do PD and missing many PD sessions recently, I would recommend patient to be switched to hemodialysis via tunneled catheter and patient agrees. 2. Hyperkalemia: Peritoneal dialysis as above on low potassium diet 3. Anemia: Will order for Procrit 4. Diabetes 5. History of hypertension 6. Left heel ulcer with osteomyelitis, seen by Ortho and plan for left BKA Patient evaluated and audiovisual cart. Time spent 40 minutes. Consult Attestations 2 Medical Necessity Statement: per mediicne team Coding Level of Care Code Acute Code for [facility] Fwd Diagnoses ESRD (end stage renal disease) N18.6
[2024-06-21] MEDS: pantoprazole 40 mg SDV IVP (23:07)
[2024-06-21] MEDS: sodium chloride 0.9% 1,000 ML 50 ML IV (23:09)
[2024-06-21 23:23] LABS: Glucose Point of Care 314 mg/dL (70-110)
[2024-06-21] MEDS: ceFAZolin 2,000 mg SDV 2000 MG IVP (23:58)
[2024-06-21] MEDS: INSULIN REGULAR IN 0.9 % NACL 100 UNIT/100 ML BAG 10 UNIT IV (23:58)
[2024-06-21] MEDS: citric acid-sodium citrate 30 mL UDC 60 ML PO (23:58)
[2024-06-22] VITALS (54 sets, daily range): BP systolic 82–131; BP diastolic 48–86; PULSE 77–118; RESP 12–29; TEMP 36.3–36.6; O2SAT 89–100; BMI 33.0
[2024-06-22] MEDS: magnesium sulfate premix 2 GM/50 ML PIGGYBACK IV (00:02)
[2024-06-22 00:24] LABS: Anion Gap 18.7 (5-19); Blood Urea Nitrogen 71 mg/dL (6-20); Calcium 6.8 mg/dL (8.5-10.5); Carbon Dioxide 12 mmol/L (22-29); Chloride 100 mmol/L (98-107); Glomerular Filtration Rate 13.6 mL/min (90-130); Glucose 395 mg/dL (65-115); Osmolality Calculated 299 mOsm/kg (285-295); Potassium 4.7 mmol/L (3.5-5.1); Sodium 126 mmol/L (136-145)
[2024-06-22 00:39] LABS: Creatinine Clr Calc Pharmacy 21.3681
[2024-06-22 01:04] LABS: Glucose Point of Care 292 mg/dL (70-110)
[2024-06-22 01:58] LABS: Troponin 5 2HR Delta 0.3 ABS# (0-10)
[2024-06-22 01:58] LABS: Glucose Point of Care 282 mg/dL (70-110)
[2024-06-22 02:02] LABS: Troponin 5 2HR 142.3 ng/L (0-15)
[2024-06-22 03:15] LABS: Glucose Point of Care 179 mg/dL (70-110)
[2024-06-22 03:23] LABS: Hepatitis A Antibody IgM Non-Reactive (Nonreactive); Hepatitis B Core IgM Non-Reactive (Nonreactive); Hepatitis B Surface Antigen Non-Reactive (Nonreactive); Hepatitis C Virus Antibody Non-Reactive (Nonreactive)
[2024-06-22] MEDS: Dianeal low Ca w/1.5% dex 2,000 mL Bag 2000 ML INTRAPERIT (03:30)
[2024-06-22] MEDS: dextrose 5%-sod chloride 0.45% 1,000 ML 50 ML IV (04:00)
[2024-06-22 04:19] LABS: Glucose Point of Care 210 mg/dL (70-110)
[2024-06-22 04:27] LABS: Basophils % 0.2 %; Eosinophils % 0.1 %; Hematocrit 37.3 % (37-53); Lymphocytes # 0.5 10^3/uL (0.8-4.8); Lymphocytes % 2.4 %; Mean Corpuscular HGB Conc 31.4 g/dL (30-55); Mean Corpuscular Hemoglobin 28.1 pg (27-33); Mean Corpuscular Volume 89.7 fl (82-101); Monocytes # 1.1 10^3/uL (0.2-0.9); Monocytes % 4.9 %; Neutrophils # 19.74 10^3/uL (1.8-7.7); Neutrophils % 91.3 %; Nucleated Red Blood Cells % 0 %; Platelet Count 263 10^3/cmm (157-399); Red Blood Count 4.16 10^6/uL (3.85-5.65); White Blood Count 21.59 10^3/uL (3.29-11.43)
[2024-06-22 04:39] LABS: Appearance, Peritoneal Fluid Cloudy (Clear); Color, Peritoneal Fluid Pale Yellow (Pale Yellow)
[2024-06-22 04:48] LABS: Mononuclear #, Pertinoneal Fl 15.342 10^3/uL; RBC Pertioneal Fluid 10 10^3/uL; WBC Peritoneal Fluid 17432 /uL
[2024-06-22 04:52] LABS: Pathology Referral Yes
[2024-06-22 05:00] LABS: Alanine Aminotransferase < 5 U/L (0-41); Albumin Level 1.9 g/dL (3.5-5.2); Alkaline Phosphatase 138 U/L (40-130); Anion Gap 19.2 (5-19); Aspartate Amino Transferase 8 U/L (0-40); Blood Urea Nitrogen 74 mg/dL (6-20); Calcium 7.3 mg/dL (8.5-10.5); Carbon Dioxide 12 mmol/L (22-29); Chloride 101 mmol/L (98-107); Globulin 3.3 g/dL (1.3-4.6); Glomerular Filtration Rate 13.3 mL/min (90-130); Glucose 245 mg/dL (65-115); Osmolality Calculated 296 mOsm/kg (285-295); Phosphorus 4.7 mg/dL (2.5-4.5); Potassium 4.2 mmol/L (3.5-5.1); Sodium 128 mmol/L (136-145); Total Bilirubin 0.3 mg/dL (0.15-1.2); Total Protein 5.2 g/dL (6.6-8.7)
[2024-06-22 05:01] LABS: Glucose Point of Care 204 mg/dL (70-110)
[2024-06-22 05:01] LABS: Creatinine Clr Calc Pharmacy 20.8823
[2024-06-22 06:20] LABS: Glucose Point of Care 181 mg/dL (70-110)
[2024-06-22] MEDS: piperacillin-tazobactam 3.375 GM in sodium chloride 0.9% (plus) 50 ML IV ×2 (06:27→17:34)
--- NOTE | 2024-06-22 07:03 | ECG_ITS ---
[facility] Test Date: 2024-06-22 Pat Name: Tim Robison Department: Room: ICU11 Gender: Male Straddle Truck Driver: : [id number] Requested By: Indio Burroughs Order Number: [id number] Reading MD: Laurita Love M.D. Measurements Intervals [place] Rate: 80 P: 19 [place]: 170 QRS: 156 QRSD: 130 T: 22 QT: 398 QTc: 461 Interpretive Statements SINUS RHYTHM RIGHT BUNDLE BRANCH BLOCK [120+ ms QRS DURATION, UPRIGHT V1, 40+ ms S IN I/aVL/V4/V5/V6] LEFT POSTERIOR FASCICULAR BLOCK [QRS AXIS > 109, INFERIOR Q] Compared to ECG 04/28/2024 17:59:32 Left posterior fascicular block now present First degree AV block no longer present Right-axis deviation no longer present Electronically Signed On 06-22-2024 23:36:50 CDT by Laurita Love M.D. [id number]
[2024-06-22 07:15] LABS: Glucose Point of Care 185 mg/dL (70-110)
[2024-06-22 08:02] LABS: Glucose Point of Care 147 mg/dL (70-110)
[2024-06-22 08:55] LABS: Troponin 5 6HR Delta -13.5 ng/L (0-12)
[2024-06-22 08:58] LABS: Troponin 5 6HR 128.5 ng/L (0-15)
[2024-06-22 09:08] LABS: Glucose Point of Care 118 mg/dL (70-110)
[2024-06-22] MEDS: ondansetron 2 mg/ML SDV 2 mL 4 MG IVP (10:38)
[2024-06-22 10:39] LABS: Glucose Point of Care 104 mg/dL (70-110)
--- NOTE | 2024-06-22 10:50 | XRR_ITS ---
PROCEDURE INFORMATION: Exam: XR Abdomen Exam date and time: 06/22/2024 11:03 AM Age: 58 years old Clinical indication: Abdominal pain; Generalized; Additional info: Peritoneal dialysis not draining TECHNIQUE: Imaging protocol: Radiologic exam of the abdomen. Views: Frontal supine view of the abdomen. 1 View. COMPARISON: CT abdomen pelvis con [id number] 06/21/2024 6:34 PM FINDINGS: Tubes, catheters and devices: Peritoneal dialysis catheter seen overlying upper/mid pelvis. Gastrointestinal tract: Gaseous distension of the stomach. Nonspecific bowel gas in mid abdomen. Bones/joints: Unremarkable. XR/XR KUB portable [id number] IMPRESSION: 1. Peritoneal dialysis catheter seen overlying upper/mid pelvis. 2. Gaseous distension of the stomach noted. Recommend follow-up.
[2024-06-22 13:48] LABS: Glucose Point of Care 85 mg/dL (70-110)
--- NOTE | 2024-06-22 14:03 | P.PN_ITS ---
Subjective 2 Subjective: I was informed by patient's RN that they were unable to drain the PD fluid Unable to flush the catheter Medications: Reviewed: Yes Vitals/I&O/Wt Last Vital Signs Temp 97.3 F L 06/22/24 04:00 Pulse 87 06/22/24 12:00 Resp 26 H 06/22/24 12:00 BP 92/62 06/22/24 12:00 Pulse Ox 89 L 06/22/24 12:00 O2 Del Method Room Air 06/22/24 06:00 06/21/24 06/22/24 06/22/24 22:59 06:59 14:59 Intake Total 1050 / 1050 2342.957 / 3392.957 0.967 / 0.967 Balance 1050 / 1050 2342.957 / 3392.957 0.967 / 0.967 Weight last 48 hrs Weight 101.5 kg Weight 101.5 kg Weight 99.79 kg Weight 100 kg Weight 111.13 kg Physical Exam 2 Narrative: Patient is awake alert, no distress HEENT S1-S2 regular rate and rhythm per report Left foot wound Data 06/22/24 03:59 06/22/24 03:59 Micro: Microbiology 06/22/24 02:25 Occult Blood (FIT) - Final Stool - Stool Aspirate 06/21/24 16:50 Blood Culture - Preliminary Blood SPECIMEN COLLECTED 06/21/24 16:48 Blood Culture - Preliminary Blood SPECIMEN COLLECTED A&P Assessment and plan (1) ESRD (end stage renal disease): 1. End-stage renal disease: On peritoneal dialysis, -Patient unable to do PD effectively at home due to multiple comorbidities and had been missing many sessions -Also that patient PD catheter is unable to be drained this morning, ordered KUB to see the positioning of PD catheter -Recommend general surgery consult for placing tunneled catheter to switch to hemodialysis temporarily , will ask general surgery to evaluate PD catheter positioning as well. Denies constipation. 2. Hyperkalemia: dialysis as above on low potassium diet 3. Anemia: Will order Procrit 4. Diabetes 5. History of hypertension 6. Left heel ulcer with osteomyelitis, seen by Ortho and plan for left BKA 7. Hyponatremia: Likely hypervolemic, monitor 8. Severe metabolic acidosis, in the setting of sufficiency and probable lactic acidosis, will order some Bicitra and switch to hemodialysis once catheter placed Patient evaluated and audiovisual cart. Time spent 40 minutes. Attestations 2 Medical Necessity Statement*: per candida Coding Level of Care Code Acute Code for Chg Fwd Diagnoses ESRD (end stage renal disease) N18.6
[2024-06-22 15:16] LABS: Glucose Point of Care 73 mg/dL (70-110)
--- NOTE | 2024-06-22 16:07 | P.PN_ITS ---
Subjective 2 Subjective: No acute overnight events noted. Medications: Reviewed: Yes Vitals/I&O/Wt Last Vital Signs Temp 97.3 F L 06/22/24 04:00 Pulse 78 06/22/24 15:30 Resp 20 H 06/22/24 15:30 BP 83/52 06/22/24 15:30 Pulse Ox 97 06/22/24 15:30 O2 Del Method Room Air 06/22/24 06:00 06/22/24 06/22/24 06/22/24 06:59 14:59 22:59 Intake Total 2342.957 / 3392.957 0.967 / 0.967 Balance 2342.957 / 3392.957 0.967 / 0.967 Weight last 48 hrs Weight 101.5 kg Weight 101.5 kg Weight 99.79 kg Weight 100 kg Weight 111.13 kg Physical Exam 2 Narrative: He is alert awake oriented x 3, not in acute distress Chest clear to auscultation bilaterally Cardiovascular normal heart sounds Abdomen soft nontender mildly distended, normal bowel sounds, PD catheter in place. Extremities left heel larger ulcer with bone exposure present. Also tiny pressure ulcer on right lateral malleolus without surrounding erythema or discharge present. Data 06/22/24 03:59 06/22/24 03:59 Micro: Microbiology 06/22/24 02:25 Occult Blood (FIT) - Final Stool - Stool Aspirate 06/21/24 16:50 Blood Culture - Preliminary Blood SPECIMEN COLLECTED 06/21/24 16:48 Blood Culture - Preliminary Blood SPECIMEN COLLECTED A&P Assessment and plan (1) DKA (diabetic ketoacidosis): Although anion gap is 19, patient is n.p.o. for left BKA today and blood sugars have been running between 70-100, hence discontinued insulin drip. Will also hold off on basal glargine. Will do low-dose correction scale insulin every 2 hours for now and monitor blood sugars every 2 hours. (2) Diabetes mellitus with foot ulcer and gangrene: Given history of chronic nonhealing wound to the left heel consistent with chronic osteomyelitis , orthopedic consulted and awaiting for left BKA today (3) ESRD on peritoneal dialysis: Discussed with corduroy cutting supervisor, appreciate consultation. Had blockage of peritoneal dialysis today and unable to dialyze him. As per nephrology recommendation, consulted surgery for tunneled hemodialysis catheter temporarily. Plan for surgery in a.m. he will be n.p.o. past midnight for the same. (4) Hyponatremia: Sodium 128 today. Hyponatremia likely secondary to poor p.o. intake. Will continue with normal saline at 80 mL/h. (5) Leukocytosis: Leukocytosis trending up to 21.5, . Continue for coverage with Zosyn, vancomycin. Requesting also collection of culture from peritoneal dialysate. Will follow-up labs in a.m. and adjust antibiotics accordingly (6) Diarrhea: C. difficile reviewed, negative. Requesting stool Salmonella/Shigella/Campylobacter. Occult blood stool negative. Will do Imodium 2 mg every 4 hours as needed Plan Physical deconditioning: PT assessment. Case management consultation. Continue TELEVISION PRESENTER aspirin, Plavix Diet n.p.o. for now Given history of black stools/diarrhea Attestations 2 Medical Necessity Statement*: He needs continued hospitalization crossing 2 midnights for management of multiple medical problems including DKA, hyponatremia, diarrhea, leukocytosis, chronic left heel osteomyelitis and ESRD Time Spent in Patient Care: 40minutes Coding Level of Care Code Critical Care >/= 30 minutes Diagnoses DKA (diabetic ketoacidosis) E11.10 Diabetes mellitus with foot ulcer and gangrene E11.621; E11.52; L97.509 ESRD on peritoneal dialysis N18.6; Z99.2 Hyponatremia E87.1 Leukocytosis D72.829 Diarrhea R19.7 Time Spent (min) 40
--- NOTE | 2024-06-22 16:08 | P.CONIM_ITS ---
Providers/Reason For Consult 2 Consulting Physician/Specialty*: Dr. Yves Villar, DO/General Surgery Reason for Consult*: Permacath Placement Attending Physician: Radha Presley MD Primary Care Provider: SERAFIN Reza History of Present Illness History of Present Illness Tim Robison is a 58 year old male is currently in the hospital with osteomyelitis of his left foot. He is going later tonight for BKA. He gets peritoneal dialysis at home but has missed several treatments according to the chart. Nephrology has requested permacath placement. Patient denies any abdominal pain. Review of Systems 2 General: Reports: 10 or more systems reviewed and unremarkable except in HPI and below Medications/Allergies Home Medications Medication Instructions Recorded Confirmed Last Taken Type gabapentin 300 mg capsule 300 mg PO BEDTIME 10/11/20 06/22/24 04/27/24 History blood-glucose meter,continuous #1 ea 04/23/22 06/22/24 01/30/23 Rx (Dexcom G6 Hse Specialist) blood-glucose sensor (Dexcom G6 #9 ea 04/23/22 06/22/24 01/30/23 Rx Sensor device) blood-glucose transmitter (Dexcom #3 ea 04/23/22 06/22/24 01/30/23 Rx G6 Transmitter device) atorvastatin 40 mg tablet 40 mg PO BEDTIME 11/29/22 06/22/24 06/20/24 History famotidine 20 mg tablet 20 mg PO BID 11/29/22 06/22/24 06/21/24 History pregabalin 200 mg capsule (Lyrica) 200 mg PO TID 11/29/22 06/22/24 06/21/24 History Podus Boot to the Left #1 ea 12/03/22 06/22/24 01/30/23 Rx aspirin 81 mg chewable tablet 81 mg PO QAM #60 tabs 12/06/22 06/22/24 06/21/24 Rx insulin lispro 100 unit/mL See Rx Instructions .Route 01/07/23 06/22/24 04/27/24 Rx subcutaneous pen (Humalog KwikPen .COMPLEX #15 mL (U-100) Insulin) docusate sodium 100 mg capsule 100 mg PO BID PRN Constipation 01/18/23 06/22/24 01/30/23 History amlodipine 10 mg tablet 10 mg PO QAM 01/30/23 06/22/24 06/21/24 History vit B,C-folic ac 800 mcg-zinc 12.5 1 tab PO DAILY 08/29/23 06/22/24 06/21/24 History mg-selen-D3 2,000 unit-vit E tablet (RenaPlex-D) fluticasone 100 mcg-salmeterol 50 1 inh inhalation BID PRN Shortness 12/04/23 06/22/24 Unknown History mcg/dose blistr powdr for Of Breath inhalation (Advair Diskus) insulin detemir U-100 100 unit/mL 10 unit (0.1 mL) SUBCUT QAM 30 12/09/23 06/22/24 06/21/24 Rx (3 mL) subcutaneous pen (Levemir days #3 mL FlexPen) metoprolol tartrate 100 mg tablet 100 mg PO BID 04/28/24 06/22/24 06/21/24 History patiromer calcium sorbitex 8.4 8.4 g PO DAILY 04/28/24 06/22/24 06/21/24 History gram oral powder packet (Veltassa) sevelamer carbonate 800 mg tablet 800 mg PO TID 04/28/24 06/22/24 06/21/24 History sodium bicarbonate 650 mg tablet 1,300 mg PO BID 04/28/24 06/22/24 04/27/24 History sodium hypochlorite 0.125 % 1 applic topical DAILY #473 mL 06/02/24 06/22/24 Unknown Rx solution (Dakin's Solution) Allergies Allergy/AdvReac Type Severity Reaction Status Date / Time Iodinated Contrast Media Allergy ALGY-Hives Verified 12/24/23 13:55 Current Medications Generic Name Dose Route Start Last Admin Trade Name Freq PRN Reason Stop Dose Admin Aspirin 81 mg 06/22/24 06:00 06/22/24 07:25 Aspirin 81 Mg Chew Tablet PO Not Given QAM KELSEY Chlorhexidine Gluconate 1 applic 06/23/24 00:45 06/23/24 01:12 Chlorhexidine Gluconate 4% Btl 118 Ml TOPICAL 1 applic DAILY KELSEY Administration Sodium Chloride 1,000 mls @ 80 mls/hr 06/21/24 22:07 06/23/24 02:40 Sodium Chloride 0.9% IV 80 mls/hr .[id number] KELSEY Administration Piperacillin Sod/Tazobactam 50 mls @ 12.5 mls/hr 06/22/24 06:00 06/23/24 05:20 Sod 3.375 gm/ Sodium Chloride IV 12.5 mls/hr Q12H KELSEY Administration Protocol Fentanyl 1,000 mcg in 100 mls @ 0 mls/hr 06/22/24 21:30 06/23/24 05:02 Sublimaze IV 100 mcg/hr .Q0M KELSEY 10 mls/hr Administration Protocol Per Protocol Dexmedetomidine/Sodium Chloride 400 mcg in 100 mls @ 0 mls/hr 06/22/24 22:15 06/22/24 23:00 Precedex IV 0.2 mcg/kg/hr .Q0M KELSEY 5.08 mls/hr Titration Protocol Per Protocol Norepinephrine Bitartrate 4 mg in 250 mls @ 0 mls/hr 06/22/24 22:15 06/23/24 05:56 Levophed IV 6 mcg/min .Q0M KELSEY 22.5 mls/hr Administration Protocol Per Protocol Insulin Human Lispro 0 unit 06/22/24 16:30 06/23/24 06:48 Insulin Lispro 100 Unit/1 Ml SUBCUT 4 unit Q2H KELSEY Administration Protocol Ondansetron HCl 4 mg 06/21/24 22:07 06/22/24 10:38 Ondansetron 2 Mg/Ml Sdv 2 Ml IVP 4 mg Q8H PRN Administration vomiting, or N/V if npo Pantoprazole Sodium 40 mg 06/21/24 22:07 06/22/24 22:39 Pantoprazole 40 Mg Sdv IVP 40 mg Q24H KELSEY Administration Peritoneal Dialysis Solution 2,000 ml 06/21/24 22:15 06/22/24 03:30 Dianeal Low Ca W/1.5% Dex 2,000 Ml Bag INTRAPERIT 2,000 ml ONCE KELSEY Administration PFSH Acute 2 PFSH: Medical History BMI 36.0-36.9,adult Pressure injury of sacral region, stage 2 Weakness of both lower extremities 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 Chronic osteomyelitis GERD (gastroesophageal reflux disease) TIA (transient ischemic attack) Hypertension Anemia Elevated troponin Peritoneal dialysis catheter in situ History of cardiovascular stress test 11/2022 areas of fixed events with very small areas of reversible defect, suggesting myocardial scarring with possible gurjit-infarction ischemia History of echocardiogram 12/2022 EF50%, tech difficult study ESRD (end stage renal disease) on dialysis COVID (~12/2022) NSTEMI (non-ST elevated myocardial infarction) Aspiration pneumonia PVD (peripheral vascular disease) Chronic ulcer of right foot with fat layer exposed 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 Diabetic peripheral neuropathy associated with type 2 diabetes mellitus Congestive heart failure Type 2 diabetes mellitus Diabetic ulcer of foot associated with diabetes mellitus due to underlying condition, with fat layer exposed Chronic osteomyelitis 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 Uncontrolled type 2 diabetes with neuropathy Hyperlipidemia Onychomycosis of nail of digit of hand Neuropathy Surgical History History of insertion of tunneled central venous catheter (CVC) with port H/O circumcision H/O colonoscopy 7 yrs ago Status post debridement of ulcer of heel Family History Brother Cancer Sister Lung disease Mother Heart failure Father Chronic kidney failure Denies family history of Anesthesia complication Bleeding disorder Social History Smoking and tobacco/nicotine status: former use of tobacco/nicotine Second hand smoke exposure: No Alcohol intake: never Substance/Drug Use: never Adopted: No Lives independently: Yes Marital status: Single Current occupational status: disabled Vitals/I&O/Wt Last Vital Signs Temp 98.2 F 06/23/24 04:00 Pulse 85 06/23/24 06:15 Resp 15 06/23/24 03:42 BP 108/68 06/23/24 06:15 Pulse Ox 100 06/23/24 06:15 O2 Del Method Mechanical Ventilation 06/23/24 06:00 O2 Flow Rate 30 06/22/24 21:15 FiO2 28 06/23/24 06:00 06/22/24 06/23/24 06/23/24 22:59 06:59 14:59 Intake Total 292.292 / 343.259 730.898 / 1074.157 Output Total 125 / 125 Balance 167.292 / 218.259 730.898 / 949.157 Weight last 48 hrs Weight 226 lb 2.403 oz Weight 223 lb 12.307 oz Weight 223 lb 12.307 oz Weight 220 lb Weight 220 lb 7.396 oz Weight 245 lb Physical Exam 2 Narrative: General : Patient is well developed , no acute distress, oriented x3 Head : Normal cephalic, a-traumatic. Ears : Pinnae and external canal are normal. Hearing is normal. Eyes : PERRLA, Sclera and injection are normal. No conjunctival discharge. Nose : Mucous membranes are without erythema. Throat : buccal mucosa is normal, gums are without significant recession or hypertrophy. Lungs : Equal chest rise bilaterally, no use of accessory muscles, trachea is midline. Cor : Rate and rhythm are normal. Abdomen : Soft, ND, NT, no g/r/m Extremities : No edema, no cyanosis or clubbing, dorsalis pedis pulses are present bilaterally, non-tender to palpation of calves. Upper extremities are normal bilaterally. Diabetic foot ulcer left foot Back : non-tender to palpation, no CVA tenderness. Neuro : CN II - XII intact, Upper and lower extremities have equal and full strength Data 06/23/24 02:56 06/23/24 02:56 Micro: Microbiology 06/21/24 16:50 Blood Culture - Preliminary Blood NEGATIVE TO DATE 06/21/24 16:48 Blood Culture - Preliminary Blood NEGATIVE TO DATE 06/22/24 02:25 Occult Blood (FIT) - Final Stool - Stool Aspirate A&P Assessment and plan (1) ESRD on peritoneal dialysis: Plan Left Plavix N.p.o. midnight To OR tomorrow for permacath placement and removal of peritoneal dialysis catheter The risks and benefits of the procedure, including but not limited to, bleeding, infection, infection requiring Mediport removal antibiotic therapy and repeat surgery, damage to surrounding structures, scar, numbness, pain, pneumothorax requiring thoracostomy tube, were explained to the patient. He is understanding of the risks and wishes to proceed. Coding Level of Care Code 40137 Diagnoses ESRD on peritoneal dialysis N18.6; Z99.2
--- NOTE | 2024-06-22 17:14 | ANES.PREANE2 ---
Pre-Anesthetic Assessment Height/Weight: Height 1.75 m Weight 101.5 kg Temp Pulse Resp BP Pulse Ox O2 Del Method 97.3 F L 82 20 H 83/52 94 Room Air 06/22/24 04:00 06/22/24 16:00 06/22/24 16:00 06/22/24 16:00 06/22/24 16:00 06/22/24 06:00 Preop Diagnosis: Chronic osteomyelitis left heel Operation Date: 06/22/24 17:50 Proposed Procedures p Below Knee Amputation(Left) - Luis M Habersham, DO Familial anesthetic complications: None Was Beta Barrera taken within 24 hours: N/A Was Clonidine taken within 24 hours: N/A Last intake: > 8 hrs, dry heaving recently no bile or secretions comign up Social No alcohol and No tobacco Exam alert, oriented x 3, clear to auscultation bilaterally and regular rate & rhythm CV/HEM Hypertension Chronic Renal Failure Hepatic ascites, PD catheter malfunction Anesthetic Plan ASA status: 4 Anesthesia: General and Regional (specify below) Risk of > 500 ml blood loss (7ml/kg in children): No Medications/Allergies Home Medications Medication Instructions Recorded Confirmed Last Taken Type gabapentin 300 mg capsule 300 mg PO BEDTIME 10/11/20 06/22/24 04/27/24 History blood-glucose meter,continuous #1 ea 04/23/22 06/22/24 01/30/23 Rx (Dexcom G6 Wind Field Service Manager) blood-glucose sensor (Dexcom G6 #9 ea 04/23/22 06/22/24 01/30/23 Rx Sensor device) blood-glucose transmitter (Dexcom #3 ea 04/23/22 06/22/24 01/30/23 Rx G6 Transmitter device) atorvastatin 40 mg tablet 40 mg PO BEDTIME 11/29/22 06/22/24 06/20/24 History famotidine 20 mg tablet 20 mg PO BID 11/29/22 06/22/24 06/21/24 History pregabalin 200 mg capsule (Lyrica) 200 mg PO TID 11/29/22 06/22/24 06/21/24 History Podus Boot to the Left #1 ea 12/03/22 06/22/24 01/30/23 Rx aspirin 81 mg chewable tablet 81 mg PO QAM #60 tabs 12/06/22 06/22/24 06/21/24 Rx insulin lispro 100 unit/mL See Rx Instructions .Route 01/07/23 06/22/24 04/27/24 Rx subcutaneous pen (Humalog KwikPen .COMPLEX #15 mL (U-100) Insulin) docusate sodium 100 mg capsule 100 mg PO BID PRN Constipation 01/18/23 06/22/24 01/30/23 History amlodipine 10 mg tablet 10 mg PO QAM 01/30/23 06/22/24 06/21/24 History vit B,C-folic ac 800 mcg-zinc 12.5 1 tab PO DAILY 08/29/23 06/22/24 06/21/24 History mg-selen-D3 2,000 unit-vit E tablet (RenaPlex-D) fluticasone 100 mcg-salmeterol 50 1 inh inhalation BID PRN Shortness 12/04/23 06/22/24 Unknown History mcg/dose blistr powdr for Of Breath inhalation (Advair Diskus) insulin detemir U-100 100 unit/mL 10 unit (0.1 mL) SUBCUT QAM 30 12/09/23 06/22/24 06/21/24 Rx (3 mL) subcutaneous pen (Levemir days #3 mL FlexPen) metoprolol tartrate 100 mg tablet 100 mg PO BID 04/28/24 06/22/24 06/21/24 History patiromer calcium sorbitex 8.4 8.4 g PO DAILY 04/28/24 06/22/24 06/21/24 History gram oral powder packet (Veltassa) sevelamer carbonate 800 mg tablet 800 mg PO TID 04/28/24 06/22/24 06/21/24 History sodium bicarbonate 650 mg tablet 1,300 mg PO BID 04/28/24 06/22/24 04/27/24 History sodium hypochlorite 0.125 % 1 applic topical DAILY #473 mL 06/02/24 06/22/24 Unknown Rx solution (Dakin's Solution) Allergies Allergy/AdvReac Type Severity Reaction Status Date / Time Iodinated Contrast Media Allergy ALGY-Hives Verified 12/24/23 13:55 Current Medications Generic Name Dose Route Start Last Admin Trade Name Freq PRN Reason Stop Dose Admin Aspirin 81 mg 06/22/24 06:00 06/22/24 07:25 Aspirin 81 Mg Chew Tablet PO Not Given QAM KELSEY Clopidogrel Bisulfate 75 mg 06/22/24 06:00 06/22/24 07:25 Clopidogrel 75 Mg Tablet PO Not Given QAM KELSEY Sodium Chloride 1,000 mls @ 80 mls/hr 06/21/24 22:07 06/22/24 04:00 Sodium Chloride 0.9% IV 0 mls/hr .[id number] KELSEY Infusion Piperacillin Sod/Tazobactam 50 mls @ 12.5 mls/hr 06/22/24 06:00 06/22/24 06:27 Sod 3.375 gm/ Sodium Chloride IV 12.5 mls/hr Q12H KELSEY Administration Protocol Sodium Chloride 1,000 mls @ 999 mls/hr 06/22/24 16:21 06/22/24 16:54 Sodium Chloride 0.9% IV 06/22/24 17:21 Not Given .Q1H1M ONE Insulin Human Lispro 0 unit 06/22/24 16:30 06/22/24 16:54 Insulin Lispro 100 Unit/1 Ml SUBCUT Not Given Q2H [facility] Protocol Ondansetron HCl 4 mg 06/21/24 22:07 06/22/24 10:38 Ondansetron 2 Mg/Ml Sdv 2 Ml IVP 4 mg Q8H PRN Administration vomiting, or N/V if npo Pantoprazole Sodium 40 mg 06/21/24 22:07 06/21/24 23:07 Pantoprazole 40 Mg Sdv IVP 40 mg Q24H KELSEY Administration Peritoneal Dialysis Solution 2,000 ml 06/21/24 22:15 06/22/24 03:30 Dianeal Low Ca W/1.5% Dex 2,000 Ml Bag INTRAPERIT 2,000 ml ONCE KELSEY Administration PFSH Anesthesia Medical History BMI 36.0-36.9,adult Pressure injury of sacral region, stage 2 Weakness of both lower extremities 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 Chronic osteomyelitis GERD (gastroesophageal reflux disease) TIA (transient ischemic attack) Hypertension Anemia Elevated troponin Peritoneal dialysis catheter in situ History of cardiovascular stress test 11/2022 areas of fixed events with very small areas of reversible defect, suggesting myocardial scarring with possible gurjit-infarction ischemia History of echocardiogram 12/2022 EF50%, tech difficult study ESRD (end stage renal disease) on dialysis COVID (~12/2022) NSTEMI (non-ST elevated myocardial infarction) Aspiration pneumonia PVD (peripheral vascular disease) Chronic ulcer of right foot with fat layer exposed 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 Diabetic peripheral neuropathy associated with type 2 diabetes mellitus Congestive heart failure Type 2 diabetes mellitus Diabetic ulcer of foot associated with diabetes mellitus due to underlying condition, with fat layer exposed Chronic osteomyelitis 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 Uncontrolled type 2 diabetes with neuropathy Hyperlipidemia Onychomycosis of nail of digit of hand Neuropathy Surgical History History of insertion of tunneled central venous catheter (CVC) with port H/O circumcision H/O colonoscopy 7 yrs ago Status post debridement of ulcer of heel Family History Brother Cancer Sister Lung disease Mother Heart failure Father Chronic kidney failure Denies family history of Anesthesia complication Bleeding disorder Social History Smoking and tobacco/nicotine status: former use of tobacco/nicotine Second hand smoke exposure: No Alcohol intake: never Substance/Drug Use: never Adopted: No Lives independently: Yes Marital status: Single Current occupational status: disabled Data Anesthesia 06/22/24 03:59 06/22/24 03:59 Short CBC 06/21/24 06/22/24 Range/Units 16:48 03:59 WBC 18.79 H 21.59 H (3.29-11.43) 10^3/uL Hgb 12.60 11.70 (11.27-16.99) g/dL Hct 39.5 37.3 (37-53) % MCV 88.0 89.7 (82-101) fl Plt Count 293 263 (157-399) 10^3/cmm Neut % (Auto) 92.5 91.3 % Neut # (Auto) 17.38 H 19.74 H (1.8-7.7) 10^3/uL BMP 06/21/24 06/22/24 06/22/24 16:48 00:00 03:59 Sodium 124 L 126 L 128 L Potassium 5.3 H 4.7 4.2 Chloride 94 L 100 101 Carbon Dioxide 15 L 12 L 12 L BUN 72 H 71 H 74 H Creatinine 4.8 H 4.5 H 4.6 H Glucose 418 H 395 H 245 H Calcium 7.3 L 6.8 L 7.3 L Cardiac Enzymes 06/21/24 06/22/24 06/22/24 Range/Units 20:54 01:34 07:18 Troponin T Baseline 142 H* (0-15) ng/L Troponin T 120 Minute 142.3 H (0-15) ng/L Delta Troponin T 0.3 (0-10) ABS# Troponin T Hi Sens 6Hr 128.5 H (0-15) ng/L Troponin T Hi Sens 6Hr Delta -13.5 L (0-12) ng/L Liver Function 06/21/24 06/22/24 Range/Units 16:48 03:59 Total Bilirubin 0.5 0.3 (0.15-1.2) mg/dL AST 8 8 (0-40) U/L ALT < 5 < 5 (0-41) U/L Alkaline Phosphatase 154 H 138 H (40-130) U/L Albumin 2.1 L 1.9 L (3.5-5.2) g/dL Microbiology 06/21/24 16:50 Blood Culture - Preliminary Blood NEGATIVE TO DATE 06/21/24 16:48 Blood Culture - Preliminary Blood NEGATIVE TO DATE 06/22/24 02:25 Occult Blood (FIT) - Final Stool - Stool Aspirate Cardiac Studies: Echocardiogram 12/04/23 Echocardiogram Limited Views 01/01/23 Sestamibi Stress Test (Cardiology) 12/05/22
[2024-06-22] MEDS: norepinephrine 4 MG/250 ML BAG 7.5 MG IV (17:35)
--- NOTE | 2024-06-22 17:43 | P.HPUD_ITS ---
Surgery/Procedure H&P Update DATE OF PROCEDURE: June 22, 2024 DATE H&P PERFORMED: 06/21/24 H&P UPDATE INFORMATION: I have reviewed H&P completed within last 30 days, I have examined patient prior to procedure and No changes to prior documentation CHANGES TO PREVIOUS DOCUMENTATION: Saw patient in the ICU reviewed consent as well as signed the left lower extremity has a chronic osteomyelitis and chronic nonhealing wound of the left h eel. At this point in time I spoke with the hospitalist he is stable to proceed to the OR today. Will plan on him returning to the ICU postoperatively after left below the knee amputation. He understands the ins and outs procedure, the risk benefits complication alternatives of surgery. Understanding risk of surgery he elects proceed all questions been answered at this time. PREOP DIAGNOSIS: Chronic osteomyelitis left heel PRIMARY INDICATION FOR PROCEDURE: Chronic nonhealing left diabetic foot ulceration with chronic osteomyelitis of the calcaneus PLANNED PROCEDURE: Operation Date: 06/22/24 17:50 Proposed Procedures p Below Knee Amputation(Left) - Luis M Garcia DO
--- NOTE | 2024-06-22 17:54 | PC.NURSE ---
Unable to drain peritoneal dialysis. Dr. Castillo and hospitalist aware. No new orders.
--- NOTE | 2024-06-22 19:19 | PC.NURSE ---
Patient with surgery aprox 1905.
[2024-06-22 19:40] LABS: Glucose Point of Care 108 mg/dL (70-110)
--- NOTE | 2024-06-22 19:45 | ANES.PROC ---
Anesthesia Procedures Procedure/Date: 06/22/24 Central Venous Insert: Central Venous Line: R IJ Time Out Performed: Yes Consent: requested by attending/covering physician Central Line: New Anesthesia monitors: pulse oximetry, EKG, BP cuff and oxygen Vein cannulated: right internal jugular Ultrasound used: to identify patency to vessel and to visualize needle entry to vein Additional Comments: Patient's head turned Left to expose R IJ, R neck, trapezius claivicle, face and mae copiously prepped with large chloroprep due to mae. Sterile full body drape applied, 2 smaller chloropreps applied again over sterile drape window. US probe (sterile cover applied) used to identify R IJ, seldinger technique used to gain access to R IJ, Wire confirmed in vessel both in-plane and out of plane, dilated R IJ and central line 16 cm triple lumen placed over wire, wire removed. All three ports aspirated and flushed. Sutured central line and sterile dressing applied
[2024-06-22] MEDS: vancomycin 1,000 MG SDV 1000 MG XX (20:04)
[2024-06-22] MEDS: lidocaine 1% 10 ML INJ 20 ML INJECTION (20:05)
--- NOTE | 2024-06-22 20:20 | ANE.PACU2 ---
Inpatient post-anesthesia follow up: Airway intact: Yes Vital signs: Temperature 98.2 F Pulse Rate [Bilate ral Dorsalis 80 Pedis] Pulse Rate [Bilate ral Radial] 80 Pulse Rate 85 Respiratory Rate 16 Blood Pressure 108/68 Pulse Oximetry 100 Oxygen Delivery Me thod Mechanical Ventila tion Oxygen Flow Rate 30 Fraction of Inspir ed Oxygen 28 Hydration adequate: Yes Nausea and vomiting: No Pain level: 1 Mental status: Baseline
--- NOTE | 2024-06-22 21:11 | W.PM.BPON ---
Date of Procedure: [June 22, 2024] Surgeon: [Dr. Jose DO] Wood Shop Teacher(s): [Demetrius Garcia PA-C] Procedure(s) performed: [Below left knee amputation] Findings of the procedure(s): [nonhealing left diabetic foot ulceration with chronic osteomyelitis of the calcaneus] Estimated blood loss: [125 ml] Specimen(s) removed: [Below Knee amputation of left leg] Post-operative diagnosis: [nonhealing left diabetic foot ulceration with chronic osteomyelitis of the calcaneus]
[2024-06-22 21:30] LABS: Glucose Point of Care 167 mg/dL (70-110)
--- NOTE | 2024-06-22 21:31 | PC.NURSE ---
Patient back to room 2114.
[2024-06-22] MEDS: fentaNYL 1,000 MCG/100 ML BAG 2.5 MCG IV (21:39)
[2024-06-22] MEDS: sodium chloride 0.9% 1,000 ML 80 ML IV (21:42)
--- NOTE | 2024-06-22 21:46 | P.OP_ITS ---
Operative Report Date of procedure: June 22, 2024 Pre-op diagnosis: Nonhealing left diabetic foot ulceration with chronic osteomyelitis of the calcaneus Post-op diagnosis: Same Post-op findings: See operative report for details Procedure done: Left below the knee amputation Specimens removed/disposition: Below-knee amputation of left leg Surgeon: Luis M Garcia DO Supervisor Coin Machine: Demetrius Garcia PA-C: PA was necessary for assistance in this case with retraction and protection of neurovascular structures as well as assistance in amputation, wound closure and dressing application. Anesthesia: General Estimated blood loss (mL): 125 28 minutes IV fluids: 200 mL Complications: No complications intraoperatively, patient was extubated originally unfortunately was not able to have large enough tidal volumes per anesthesia and patient was reintubated in the OR and kept on ventilator support and taken to ICU in critical condition Findings: See operative report narrative Condition: critical Disposition: ICU Procedure: INDICATIONS FOR PROCEDURE:? The patient is a 58-year-old male presenting with a chronic left foot chronic nonhealing diabetic foot ulceration with chronic osteomyelitis. The patient has had prior studies showing evidence of peripheral vascular disease.? I have outlined my approach, the course, the inherent risks, benefits, complications, and alternatives.? The patient has been optimized from a medical standpoint with full understanding of the risks, benefits, complications, and alternatives, patient has elected to proceed with surgery today for a left below the knee amputation. Once again concern is he is continually had likely chronic infection Of the foot and was set to follow-up with me on an outpatient setting unfortunately now he is admitted in ICU. At this point time he is ready to proceed with a left below the knee amputation. He does understand he still may have potential for wound issues postoperatively but goals of hopefully rating him of this possible infectious source and goals of hopeful prosthesis down the road. Patient understands and agrees with current plan. All questions answered. Elects proceed with surgical intervention today. ? PROCEDURE IN DETAIL: ?The patient was identified in the ICU. ?The operative site was clearly markedand identified, and informed consent was obtained. ?Patient did participate in identifying the operative site. ?Patient was transferred to the operating table and positioned in supine position, where adequate anesthesia was administered per the Anesthesia Department. ?A nonsterile tourniquet was placed high on the operative lower extremity. The operative lower extremity was then positioned, prepped and draped in the usual sterile orthopedic fashion.? The distal most aspect of the lower extremity was secured in a sterile stockinette with sterile Coban.? After elevation, the tourniquet was inflated 300 mmHg. ?we delineated our topographical anatomy, marking out our tibial resection at approximately 13 cm distal to the medial joint line. ?The skin flaps were elucidated with a surgical marker using a 1/3rd anterior-posterior 2/3rd flap.The skin was then incised with a 10-blade scalpel and then Bovie electrocautery was used to dissect the subcutaneous tissue as we delineated the anterior margins of the tibia and fibula. Patient was found to have significant edema appreciated. ?Anterolateral soft tissue envelope was clearly evaluated. ?Again, the muscle demonstrated good contractility there was no signs of infection within the margins of the amputation site however patient did appear due to his lack of mobility have a more paler pink-red musculature, but no signs of infection appreciated proximally. ?I delineated our peroneal neurovascular bundle and ligated it with 0 silk tie doubled up. ?Once I delineated the anterior cortices of the tibia and fibula, soft tissues were protected with soft tissue retraction and a sagittal saw was used to transect the tibia at approximately 13 cm distal to the joint line and then the fibula just proximal to that obliquely. then the amputation knife was taken along the posterior cortex of the tibia and the fibula, transecting the soft tissues distally, leaving a nice long posterior flap. The specimen was then marked right foot and ankle and sent for pathology and disposal. We did debulk the posterior flap just a bit, found the remainder of the neurovascular bundles. ?Again, we even identified the sural nerve posteriorly and the tibial nerve. ?These were injected with 1% lidocaine plain and then placed under traction and transected with 15-blade scalpel prior to allowing them to retract well into the residual stump. ?Again, the additional bundles were ligated with Vicryl knot doubled up. ?We irrigated with copious amounts of normal saline and then deflated the tourniquet to verify adequate hemostasis and good capillary refill distally. ?Again, all of the bundles were ligated appropriately. ?We had excellent hemostasis. ?I then facilitated the primary myodesis anterior to posterior with interrupted Ethibond suture. ?The skin was then closed with #1 strata fix 2 oh strata fix and khadijah . ?A sterile dressing was applied with Xeroform, 4x4s, ABD, soft roll, and an Lobo wrap. ?The patient was originally extubated and planning on taken back to ICU however while being observed by anesthesia required reintubation was taken back to ICU in critical condition. ? Disposition: Patient taken back to ICU in critical condition. Will continue with IV antibiotics. Plan to change dressing on postoperative day 2-3. Patient will follow-up with orthopedics in 2 weeks upon date of surgery. Defer to hospitalist for medical management. Pending on how patient continues to heal we will get him set up with prosthesis company in the outpatient setting. Patients family understands and agrees with current plan. All questions answered.
--- NOTE | 2024-06-22 21:54 | PC.NURSE ---
Spoke with Dr. Burroughs in reference to medications for patient after coming back from surgery with a vent. Received orders to continue with fentanyl due to low BP concerns.
--- NOTE | 2024-06-22 22:15 | PC.NURSE ---
Spoke with Dr Burroughs in reference to patient not tolerating ventilator well. Received orders for Precedex, titratable protocol.
[2024-06-22] MEDS: dexmedeTOMIDine 0.9 % NaCL 400 MCG/100 ML PREMIX IV (22:25)
[2024-06-22 22:35] LABS: Glucose Point of Care 165 mg/dL (70-110)
[2024-06-22] MEDS: insulin lispro 100 unit/1 mL SUBCUT (22:39)
[2024-06-22] MEDS: pantoprazole 40 mg SDV IVP (22:39)
[2024-06-22] MEDS: norepinephrine 4 MG/250 ML BAG 52.5 MG IV (23:56)
[2024-06-23] VITALS (72 sets, daily range): BP systolic 86–144; BP diastolic 50–90; PULSE 73–116; RESP 11–17; TEMP 35.7–36.8; O2SAT 98–100
[2024-06-23 00:36] LABS: Glucose Point of Care 202 mg/dL (70-110)
[2024-06-23] MEDS: insulin lispro 100 unit/1 mL SUBCUT ×4 (00:38→09:17)
[2024-06-23] MEDS: chlorhexidine gluconate 4% Btl 118 mL 1 APPLIC TOPICAL (01:12)
[2024-06-23] MEDS: sodium chloride 0.9% 1,000 ML 80 ML IV ×2 (02:40→13:24)
[2024-06-23 03:15] LABS: Basophils # 0.1 10^3/uL (0.0-0.1); Basophils % 0.3 %; Lymphocytes # 0.5 10^3/uL (0.8-4.8); Lymphocytes % 1.5 %; Mean Corpuscular HGB Conc 31.8 g/dL (30-55); Mean Corpuscular Hemoglobin 28.4 pg (27-33); Mean Corpuscular Volume 89.2 fl (82-101); Monocytes # 0.9 10^3/uL (0.2-0.9); Monocytes % 2.5 %; Neutrophils # 33.56 10^3/uL (1.8-7.7); Neutrophils % 94.9 %; Nucleated Red Blood Cells % 0 %; Platelet Count 349 10^3/cmm (157-399); Red Blood Count 4.37 10^6/uL (3.85-5.65); Red Cell Distribution Width 15.3 % (12.1-15.1)
[2024-06-23 03:39] LABS: Glucose Point of Care 198 mg/dL (70-110)
[2024-06-23 03:43] LABS: Alanine Aminotransferase 7 U/L (0-41); Albumin Level 1.8 g/dL (3.5-5.2); Alkaline Phosphatase 206 U/L (40-130); Anion Gap 21.5 (5-19); Aspartate Amino Transferase 16 U/L (0-40); Blood Urea Nitrogen 72 mg/dL (6-20); Calcium 7.1 mg/dL (8.5-10.5); Carbon Dioxide 12 mmol/L (22-29); Chloride 98 mmol/L (98-107); Creatinine Clr Calc Pharmacy 20.6078; Globulin 3.5 g/dL (1.3-4.6); Glucose 227 mg/dL (65-115); Osmolality Calculated 292 mOsm/kg (285-295); Potassium 4.5 mmol/L (3.5-5.1); Sodium 127 mmol/L (136-145); Total Bilirubin 0.3 mg/dL (0.15-1.2); Total Protein 5.3 g/dL (6.6-8.7)
[2024-06-23 03:51] LABS: ABG PCO2 33.8 mmHg (35-45); Arterial Blood Gas Hematocrit 38.2 % (42-52); Base Excess ABG -14.6 mmol/L (-2.0-2.0); Blood Gas Sample Type Arterial; Carboxyhemoglobin 0.8 %THgb (0.4-20.1); HCO3 ABG 12.7 mmol/L (22-26); HGB O2 Sat 96.6 % (95-100); Ionized Calcium Level - ABG 1.1 mmol/L (1.1-1.4); Methemoglobin 1.3 % (0.4-1.5); Oxygen Saturation ABG 98.7; Total Hemoglobin 12.5 g/dL (14-18)
[2024-06-23 03:52] LABS: Alveolar-Arterial Oxygen Gradi 5.7 mmHg (5-10); Blood Gas Operator Identificat ED; Blood Gas Sample Site Brachial, left; Oxygen Device VENT; PO2 FiO2 Ratio Arterial Blood 396
[2024-06-23 03:53] LABS: ABG PH Result 7.18 (7.35-7.45)
[2024-06-23 04:33] LABS: Slide Review Slide Review Perform; White Blood Count 35.36 10^3/uL (3.29-11.43)
--- NOTE | 2024-06-23 04:53 | XRR_ITS ---
PROCEDURE INFORMATION: Exam: XR Chest Exam date and time: 06/23/2024 6:14 AM Age: 58 years old Clinical indication: Other: Og placement; Additional info: Confirm og placement TECHNIQUE: Imaging protocol: Radiologic exam of the chest. Views: 1 view. COMPARISON: CR XR chest 1V portable [id number] 04/28/2024 9:32 AM FINDINGS: Tubes, catheters and devices: Endotracheal tube is present with its tip 2.5 cm above the pilo. Nasogastric tube is present with its tip overlying the body of the stomach. Central venous catheter seen on the right with its tip overlying the SVC. Lungs: There are bilateral infiltrates. Pleural spaces: There is layering pleural fluid on the right. There may be trace pleural fluid on the left. Heart/Mediastinum: Unremarkable. No cardiomegaly. Diaphragm: There is chronic elevation of the left hemidiaphragm. Bones/joints: Unremarkable. XR/XR chest 1V portable [id number] IMPRESSION: 1. Bilateral infiltrates with right-sided pleural effusion and possible trace left pleural effusion. 2. Successful placement of nasogastric tube.
[2024-06-23] MEDS: fentaNYL 1,000 MCG/100 ML BAG 10 MCG IV ×3 (05:02→23:29)
[2024-06-23] MEDS: piperacillin-tazobactam 3.375 GM in sodium chloride 0.9% (plus) 50 ML IV (05:20)
[2024-06-23] MEDS: norepinephrine 4 MG/250 ML BAG 22.5 MG IV (05:56)
[2024-06-23 06:37] LABS: Glucose Point of Care 207 mg/dL (70-110)
[2024-06-23 07:54] LABS: Glucose Point of Care 188 mg/dL (70-110)
[2024-06-23 08:37] LABS: Hepatitis B Surface AB 46.6 (11.5-1000); Hepatitis B Surface Antigen Non-Reactive (Nonreactive)
--- NOTE | 2024-06-23 08:43 | PHA.VACGOAL ---
Vancomycin Goal - Goal Vancomycin Indication:: SSTI - Therapy Current therapy:: Meropenem Day of therpy:: Day [1]of [] . Actual body weight (kg): 102.58 kg - Data Labs: WBC 35.36 10^3/uL (3.29-11.43) H* 06/23/24 02:56 RBC 4.37 10^6/uL (3.85-5.65) 06/23/24 02:56 Hgb 12.40 g/dL (11.27-16.99) 06/23/24 02:56 Hct 39.0 % (37-53) 06/23/24 02:56 MCV 89.2 fl (82-101) 06/23/24 02:56 MCH 28.4 pg (27-33) 06/23/24 02:56 MCHC 31.8 g/dL (30-55) 06/23/24 02:56 RDW 15.3 % (12.1-15.1) H 06/23/24 02:56 Sodium 127 mmol/L (136-145) L 06/23/24 02:56 Potassium 4.5 mmol/L (3.5-5.1) 06/23/24 02:56 Chloride 98 mmol/L (98-107) 06/23/24 02:56 Carbon Dioxide 12 mmol/L (22-29) L 06/23/24 02:56 Anion Gap 21.5 (5-19) H 06/23/24 02:56 BUN 72 mg/dL (6-20) H 06/23/24 02:56 Creatinine 4.7 mg/dL (0.7-1.2) H 06/23/24 02:56 GFR Calculation 13.0 mL/min (90-130) L 06/23/24 02:56 Treatment plan:: new consult Regimen:: Telepharmacy dosing: Serum Creatinine: 4.7 CrCL: 20.6078 Indication: ssti Dose (mg): 1500 Frequency: q48h Height (cm): 175.26 Weight (kg): 101.5 Age (Years): 58 Follow up:: Patient has not yet received any systemic vancomycin. Ordered 1750 mg loading dose. Will obtain random level tomorrow morning 06/24. Will dose vancomycin based on levels.
[2024-06-23] MEDS: aspirin 81 mg Chew Tablet PO (09:16)
[2024-06-23] MEDS: meropenem 1,000 MG in sodium chloride 0.9% (plus) 50 ML 100 MG IV ×2 (09:16→19:56)
[2024-06-23] MEDS: sodium bicarbonate 8.4% 1 mEq/mL 50mL Syr 100 MEQ IVP (09:18)
[2024-06-23] MEDS: vancomycin 1,750 MG/350 ML PIGGYBACK 175 MG IV (09:18)
--- NOTE | 2024-06-23 10:32 | P.PN_ITS ---
Vitals/I&O/Wt Last Vital Signs Temp 97.7 F 06/23/24 08:00 Pulse 78 06/23/24 10:00 Resp 16 06/23/24 10:02 BP 92/64 06/23/24 10:00 Pulse Ox 100 06/23/24 10:02 O2 Del Method Mechanical Ventilation 06/23/24 10:00 O2 Flow Rate 30 06/22/24 21:15 FiO2 28 06/23/24 10:02 06/22/24 06/23/24 06/23/24 22:59 06:59 14:59 Intake Total 292.292 / 343.259 730.898 / 2332.039 2296.462 / 1216.462 Output Total 125 / 125 Balance 167.292 / 218.259 730.898 / 296.632 9554.462 / 1216.462 Weight last 48 hrs Weight 226 lb 2.403 oz Weight 223 lb 12.307 oz Weight 223 lb 12.307 oz Weight 220 lb Weight 220 lb 7.396 oz Weight 245 lb Data 06/23/24 02:56 06/23/24 02:56 Micro: Microbiology 06/21/24 16:50 Blood Culture - Preliminary Blood NEGATIVE TO DATE 06/21/24 16:48 Blood Culture - Preliminary Blood NEGATIVE TO DATE A&P Assessment and plan (1) ESRD on peritoneal dialysis: Plan Left Plavix N.p.o. midnight permacath placement and removal of peritoneal dialysis catheter The risks and benefits of the procedure, including but not limited to, bleeding, infection, infection requiring Mediport removal antibiotic therapy and repeat surgery, damage to surrounding structures, scar, numbness, pain, pneumothorax requiring thoracostomy tube, were explained to the patient. He is understanding of the risks and wishes to proceed. Attestations 2 Medical Necessity Statement*: Per primary Coding Level of Care Code Acute Code for Chg Fwd Diagnoses ESRD on peritoneal dialysis N18.6; Z99.2
[2024-06-23 10:44] LABS: Glucose Point of Care 134 mg/dL (70-110)
--- NOTE | 2024-06-23 11:39 | P.ANESUD_ITS ---
Pre-Anesthetic Update Pre-Anesthetic Assessment: Date of Surgery/Procedure: 06/23/24 Preop Anabelle gnosis: Chronic osteomyelitis left heel Proposed Procedure: Operation Date: 06/22/24 17:50 Proposed Procedures p Below Knee Amputation(Left) - Luis M Garcia DO Operation Date: 06/23/24 11:15 Proposed Procedures p Dialysis Catheter Insertion Permacath Insertion(Not Applicable) - Yves Villar, DO s Peritoneal Catheter Removal(Not Applicable) - Yves Villar, DO Any changes to Pre-Anesthetic Assessment?: Yes Changes from Pre- Anesthetic Assessment: intubated Labs Last 48hrs: Short CBC 06/21/24 06/22/24 06/23/24 Range/Units 16:48 03:59 02:56 WBC 18.79 H 21.59 H 35.36 H* (3.29-11.43) 10^ 3/uL Hgb 12.60 11.70 12.40 (11.27-16.99) g/ dL Hct 39.5 37.3 39.0 (37-53) % MCV 88.0 89.7 89.2 (82-101) fl Plt Count 293 263 349 D (157-399) 10^3/c mm Neut % (Auto) 92.5 91.3 94.9 % Neut # (Auto) 17.38 H 19.74 H 33.56 H (1.8-7.7) 10^3/u L BMP 06/21/24 06/22/24 06/22/24 16:48 00:00 03:59 Sodium 124 L 126 L 128 L Potassium 5.3 H 4.7 4.2 Chloride 94 L 100 101 Carbon Dioxide 15 L 12 L 12 L BUN 72 H 71 H 74 H Creatinine 4.8 H 4.5 H 4.6 H Glucose 418 H 395 H 245 H Calcium 7.3 L 6.8 L 7.3 L 06/23/24 02:56 Sodium 127 L Potassium 4.5 Chloride 98 Carbon Dioxide 12 L BUN 72 H Creatinine 4.7 H Glucose 227 H Calcium 7.1 L Cardiac Enzymes 06/21/24 06/22/24 06/22/24 Range/Units 20:54 01:34 07:18 Troponin T Baselin e 142 H* (0-15) ng/L Troponin T 120 Min tuscarora 142.3 H (0-15) ng/L Delta Troponin T 0.3 (0-10) ABS# Troponin T Hi Sens 6Hr 128.5 H (0-15) ng/L Troponin T Hi Sens 6Hr Delta -13.5 L (0-12) ng/L Liver Function 06/21/24 06/22/24 06/23/24 Range/Units 16:48 03:59 02:56 Total Bilirubin 0.5 0.3 0.3 (0.15-1.2) mg/dL AST 8 8 16 (0-40) U/L ALT < 5 < 5 7 (0-41) U/L Alkaline Phosphata se 154 H 138 H 206 H (40-130) U/L Albumin 2.1 L 1.9 L 1.8 L (3.5-5.2) g/dL Blood Bank 06/21/24 02:56 Blood Type O Positive Rho(D) Type Rh positive Antibody Screen Negative ABG 06/23/24 03:41 Specimen Type Arterial Sample Site Brachial, left ABG pH 7.18 L* ABG pCO2 33.8 L ABG pO2 111.0 H ABG PO2/FiO2 Ratio 396 ABG HCO3 12.7 L ABG O2 Saturation 98.7 ABG Base Excess -14.6 L A-a O2 Gradient 5.7 O2 Delivery Device Vent FiO2 28.0 Tidal Volume 0.50 PEEP 5.0 Vitals: Temperature 97.7 F 06/23/24 08:00 Temperature Source Axillary 06/23/24 08:00 Pulse Rate 78 06/23/24 10:00 Pulse Rhythm Regular 06/22/24 23:31 Pulse Strength 2+ Slightly Dimin ished 06/23/24 08:00 Respiratory Rate 16 06/23/24 11:24 Respiratory Effort Mechanically Vent ilated 06/23/24 08:00 Respiratory Depth Normal 06/23/24 08:00 Respiratory Patter n Normal 06/22/24 03:43 Blood Pressure 92/64 06/23/24 10:00 Blood Pressure Chandni n 73 06/23/24 10:00 Blood Pressure Pos ition Semi Fowlers 06/23/24 10:00 Pulse Oximetry 100 06/23/24 11:24 Oxygen Delivery Me thod Mechanical Ventil ation 06/23/24 10:00 Oxygen Flow Rate 30 06/22/24 21:15 Fraction of Inspir ed Oxygen 28 06/23/24 11:24 Sepsis Recent Feve r Within 48 Hours No 06/21/24 21:10 Exam: Pre-Anes Outpt Exam: alert, oriented x 3, clear to auscultation bilate rally and regular rate & rhythm Cardiac Studies: Echocardiogram 12/04/23 Echocardiogram Limited Views 01/01/23 Sestamibi Stress Test (Cardiology) 12/05
--- NOTE | 2024-06-23 12:12 | SC_ITS ---
WS: [id number] C-arm fluoroscopy for insertion of left dialysis catheter, 06/23/2024 Clinical Data: dialysis catheter Comparison: Portable chest, 06/23/2024 Findings: Dr. Villar inserted a left dialysis catheter. SC/C-arm FL for CVA [id number] Impression: Dialysis catheter insertion.
[2024-06-23] MEDS: heparin, porcine 1,000 unit/mL INJ 10 mL 10000 UNIT XX (12:25)
[2024-06-23] MEDS: lidocaine-epi 2% PF 1:200,000 20 mL SDV XX (12:31)
--- NOTE | 2024-06-23 12:45 | XRR_ITS ---
PROCEDURE INFORMATION: Exam: XR Chest Exam date and time: 06/23/2024 1:14 PM Age: 58 years old Clinical indication: Device placement; Other: Permacath placement; Additional info: S/P permacath placement TECHNIQUE: Imaging protocol: Radiologic exam of the chest. Views: 1 view. COMPARISON: CR XR chest 1V portable [id number] 06/23/2024 6:14 AM FINDINGS: Tubes, catheters and devices: The ETT terminates 2 cm above the pilo. The right IJ central line is unchanged terminating near the superior cavoatrial junction. A new tunneled dialysis catheter into the left internal jugular vein has a satisfactory appearance terminating in the upper right atrium. The tip of the NG tube is in the body of the stomach. Lungs: Unchanged bilateral pneumonitis, edema, and/or atelectasis. Pleural spaces: Unremarkable. No pleural effusion. No pneumothorax. Heart/Mediastinum: Unremarkable. No cardiomegaly. Diaphragm: Unchanged moderate elevation of the left hemidiaphragm. Bones/joints: Nothing acute. No change. XR/XR chest 1V portable [id number] IMPRESSION: 1. Satisfactory appearance of new tunneled dialysis catheter. 2. Additional details as above. Unchanged.
--- NOTE | 2024-06-23 12:46 | PM.OP ---
Operative Report Date of procedure: June 23, 2024 Pre-op diagnosis: End-stage renal disease Post-op diagnosis: same Procedure done: Permacath placement Intraoperative interpretation of fluoroscopy Removal of peritoneal dialysis catheter Implants: 27 cm permacath Specimens removed/disposition: None Surgeon: Yves Villar DO Anesthesia: General and Local Estimated blood loss (mL): 5 Complications: None apparent Brief History: This is a very pleasant 58-year-old gentleman with end-stage renal disease on peritoneal dialysis who presented to the hospital due to osteomyelitis and diabetic foot ulcer. His peritoneal dialysis catheter was not working as he had missed multiple treatments. Permacath placement and removal of peritoneal dialysis catheter was indicated. The risks and benefits were explained and documented. Procedure: Patient was taken to the operating room and placed supine on the operating room table. All bony prominences were padded. He was given IV sedation and monitored throughout the case by the anesthesia personnel. SCDs were placed and turned on. The arms were tucked to the side. Patient received Vancomycin preoperatively IV. The bilateral chest wall was prepped and draped in usual sterile fashion using chlorhexidine base prep. Sterile drapes were applied. We did procedure pause prior to beginning. An 18 gauge needle was placed in the left internal jugular vein under ultrasound guidance. Dark, nonpulsatile blood was aspirated. A guidewire was placed through the needle centrally toward the atrial/vena caval junction. Fluoroscopy visualized good placement. The needle was removed and the guidewire was clipped to the drape with a hemostat. Further local anesthetic was infiltrated in the soft tissues of the right chest wall and a #15 blade was used to make a vertical skin incision. A #15 blade was used to make a small skin shu around the guidewire insertion area. The permacath tubing was tunneled through the subcutaneous tissues up to the needle insertion location. Serial dilators were used to serially dilate over the guidewire . A dilator with a peel-away sheath was placed over the guidewire and placed centrally. The guidewire was removed as well as the dilator and the permacath was fed into the split sheath. The split sheath was removed. Both ports were aspirated to reveal dark blood and were flushed with saline only as the patient has a heparin allergy. Final fluoroscopy visualization showed no kink in the catheter and the tip of the permacath tubing near the atrial/vena caval junction. There was no obvious pneumothorax. Both skin incisions were thoroughly irrigated and suctioned dry. Meticulous hemostasis noted. The internal jugular access site was closed with 4-0 Vicryl in a subcuticular fashion. The skin overlying the permacath was closed in a similar manner. The permacath was then sutured into place using 2-0 nylon in a simple interrupted fashion. skin glue was applied as a topical dressing. This was allowed to dry. Attention was then brought to the peritoneal dialysis catheter. The catheter was grasped and pulled with steady even traction until both cuffs broke loose and the catheter was removed. A sterile dressing was applied. Patient was awakened from anesthesia and transferred via her cart to the recovery room in stable condition. All needle, sponge, and instrument counts were correct per the operating personnel x2 counts. Postplacement chest x-ray was ordered.
--- NOTE | 2024-06-23 13:10 | ANE.PACU2 ---
Inpatient post-anesthesia follow up: Airway intact: No Vital signs: Temperature 97.7 F Pulse Rate [Bilate ral Dorsalis 80 Pedis] Pulse Rate [Bilate ral Radial] 80 Pulse Rate 80 Respiratory Rate 11 Blood Pressure 139/76 Pulse Oximetry 100 Oxygen Delivery Me thod Mechanical Ventila tion Oxygen Flow Rate 30 Fraction of Inspir ed Oxygen 28 Hydration adequate: Yes Nausea and vomiting: No Pain level: 1 Mental status: Altered
--- NOTE | 2024-06-23 13:21 | P.PN_ITS ---
Subjective 2 Subjective: Seen at bedside this morning. He is intubated and sedated post left BKA. Needed pressure support post surgery. No acute overnight events noted. Blood pressure still soft. Spoke to family at bedside this afternoon. Explained and educated about plan of care. Medications: Reviewed: Yes Vitals/I&O/Wt Last Vital Signs Temp 97.7 F 06/23/24 08:00 Pulse 76 06/23/24 11:30 Resp 16 06/23/24 11:30 BP 122/69 06/23/24 11:30 Pulse Ox 98 06/23/24 11:30 O2 Del Method Mechanical Ventilation 06/23/24 11:30 O2 Flow Rate 30 06/22/24 21:15 FiO2 28 06/23/24 11:30 06/22/24 06/23/24 06/23/24 22:59 06:59 14:59 Intake Total 292.292 / 343.259 730.898 / 7059.277 2380.462 / 1271.462 Output Total 125 / 125 Balance 167.292 / 218.259 730.898 / 083.087 3509.462 / 1271.462 Weight last 48 hrs Weight 102.58 kg Weight 101.5 kg Weight 101.5 kg Weight 99.79 kg Weight 100 kg Weight 111.13 kg Physical Exam 2 Narrative: He is sedated and intubated Chest clear to auscultation bilaterally Cardiovascular normal heart sounds Abdomen soft, nondistended, normal bowel sounds Extremities right lower extremity trace edema present, left BKA dressing present, no swelling or discharge noted. Right HD catheter in place. Data 06/23/24 02:56 06/23/24 02:56 Micro: Microbiology 06/22/24 03:30 Body Fluid Culture - Preliminary Peritoneal Fluid Coag positive Staphylococcus 06/21/24 16:50 Blood Culture - Preliminary Blood NEGATIVE TO DATE 06/21/24 16:48 Blood Culture - Preliminary Blood NEGATIVE TO DATE A&P Assessment and plan (1) DKA (diabetic ketoacidosis): DKA resolved. Patient is off insulin drip. Blood sugars have been doing well lowest being 96. Monitor fingersticks every 2 hours. Will hold off on correction scale for now Fluids changed to D5 half NS at 80 mL/h. (2) Diabetes mellitus with foot ulcer and gangrene: He is s/p left BKA. Wound dressed and no active discharge present. (3) ESRD on peritoneal dialysis: Received tunneled HD catheter by surgery this afternoon. Patient undergoing hemodialysis. Blood pressure still soft. Follow-up nephrology for further recommendations. (4) Hyponatremia: Sodium 128 today. Hyponatremia likely secondary to poor p.o. intake. Will continue with normal saline at 80 mL/h. (5) Leukocytosis: Leukocytosis trending up to 35.36 and now 25.8, . Antibiotics changed to vancomycin and meropenem. Will follow-up cultures. (6) Diarrhea: GI panel still pending. Continue Imodium 2 mg every 6 hours as needed Plan He is sedated and intubated, undergoing hemodialysis currently. Will follow-up chest x-ray in a.m. and plan for weaning off sedation and possible extubation in a.m. depending on labs and hemodynamics. Family aware of plan of care Attestations 2 Medical Necessity Statement*: He needs continued hospitalization for management of multiple comorbidities including postsurgical care for left BKA, hemodialysis, elevated leukocytosis, mechanical ventilation and hypotension. Time Spent in Patient Care: 45 minutes Coding Level of Care Code Critical Care >/= 30 minutes Diagnoses DKA (diabetic ketoacidosis) E11.10 Diabetes mellitus with foot ulcer and gangrene E11.621; E11.52; L97.509 ESRD on peritoneal dialysis N18.6; Z99.2 Hyponatremia E87.1 Leukocytosis D72.829 Diarrhea R19.7 Time Spent (min) 45
--- NOTE | 2024-06-23 13:26 | PC.NURSE ---
NS: New bag normal saline scanned early due to surgery using current bag.
--- NOTE | 2024-06-23 13:39 | PC.NURSE ---
Patient retured to room around 1300.
[2024-06-23] MEDS: heparin, porcine 1,000 unit/mL INJ 10 mL 1000 UNIT IV (13:45)
[2024-06-23 13:48] LABS: Glucose Point of Care 79 mg/dL (70-110)
[2024-06-23] MEDS: albumin 12.5 GM/50 ML VIAL IV (13:50)
--- NOTE | 2024-06-23 14:19 | PC.HD ---
Due to patient's BP drop upon treatment initiation, PRN albumin 25% was started. In addition, dialysate temperature lowered to 35.0C and UF rate set to minimum 300 mL/hour per agricultural chemicals inspector's hypotension dialysis orders. Primary RN titrating norepinephrine as required.
--- NOTE | 2024-06-23 15:08 | P.PN_ITS ---
Subjective 2 Subjective: getting HD Medications: Reviewed: Yes Vitals/I&O/Wt Last Vital Signs Temp 97.7 F 06/23/24 14:17 Pulse 76 06/23/24 14:30 Resp 17 06/23/24 14:30 BP 99/68 06/23/24 14:30 Pulse Ox 100 06/23/24 14:30 O2 Del Method Mechanical Ventilation 06/23/24 14:30 O2 Flow Rate 30 06/22/24 21:15 FiO2 28 06/23/24 14:30 06/23/24 06/23/24 06/23/24 06:59 14:59 22:59 Intake Total 730.898 / 0595.029 4144.254 / 2236.254 Balance 730.898 / 640.341 1532.254 / 2236.254 Weight last 48 hrs Weight 102.58 kg Weight 101.5 kg Weight 101.5 kg Weight 99.79 kg Weight 100 kg Weight 111.13 kg Physical Exam 2 Narrative: Patient is awake alert, no distress HEENT S1-S2 regular rate and rhythm per report Lungs clear per report s/p left BKA Data 06/23/24 02:56 06/23/24 02:56 Micro: Microbiology 06/22/24 03:30 Body Fluid Culture - Preliminary Peritoneal Fluid Coag positive Staphylococcus 06/21/24 16:50 Blood Culture - Preliminary Blood NEGATIVE TO DATE 06/21/24 16:48 Blood Culture - Preliminary Blood NEGATIVE TO DATE A&P Assessment and plan (1) ESRD (end stage renal disease): 1. End-stage renal disease: On peritoneal dialysis, -Patient unable to do PD effectively at home due to multiple comorbidities and had been missing many PD sessions - s/p removal of PD catheter and PC placed - HD today . 2. Hyperkalemia: dialysis as above, on low potassium diet, improved 3. Anemia: Will order epogen 4. Diabetes 5. History of hypertension 6. Left heel ulcer with osteomyelitis, s/p left BKA 7. Hyponatremia: Likely hypervolemic, monitor 8. Severe metabolic acidosis, in the setting of sufficiency and probable lactic acidosis, should improve with HD Patient evaluated and audiovisual cart. Time spent 40 minutes. Attestations 2 Medical Necessity Statement*: per mediicne team Coding Level of Care Code Acute Code for Chg Fwd Diagnoses ESRD (end stage renal disease) N18.6
[2024-06-23 15:09] LABS: Glucose Point of Care 96 mg/dL (70-110)
[2024-06-23] MEDS: dextrose 5%-sod chloride 0.45% 1,000 ML 80 ML IV (15:51)
[2024-06-23 16:32] LABS: Glucose Point of Care 105 mg/dL (70-110)
[2024-06-23] MEDS: heparin, porcine 1,000 unit/mL INJ 10 mL 10000 UNIT INTRACATH (16:49)
[2024-06-23 16:51] LABS: Basophils % 0.1 %; Lymphocytes # 0.6 10^3/uL (0.8-4.8); Lymphocytes % 2.4 %; Mean Corpuscular HGB Conc 33.8 g/dL (30-55); Mean Corpuscular Hemoglobin 28.3 pg (27-33); Mean Platelet Volume 12.2 fL (7.4-10.4); Neutrophils # 23.99 10^3/uL (1.8-7.7); Neutrophils % 92.7 %; Nucleated Red Blood Cells % 0 %; Platelet Count 237 10^3/cmm (157-399); Red Blood Count 3.81 10^6/uL (3.85-5.65); Red Cell Distribution Width 15.2 % (12.1-15.1); White Blood Count 25.87 10^3/uL (3.29-11.43)
[2024-06-23 17:09] LABS: Alanine Aminotransferase < 5 U/L (0-41); Albumin Level 2.3 g/dL (3.5-5.2); Alkaline Phosphatase 94 U/L (40-130); Aspartate Amino Transferase 10 U/L (0-40); Blood Urea Nitrogen 31 mg/dL (6-20); Calcium 7.1 mg/dL (8.5-10.5); Carbon Dioxide 23 mmol/L (22-29); Chloride 100 mmol/L (98-107); Glomerular Filtration Rate 31.1 mL/min (90-130); Glucose 103 mg/dL (65-115); Osmolality Calculated 289 mOsm/kg (285-295); Sodium 136 mmol/L (136-145); Total Bilirubin 0.4 mg/dL (0.15-1.2); Total Protein 5.3 g/dL (6.6-8.7)
[2024-06-23 17:16] LABS: Creatinine Clr Calc Pharmacy 46.0833
[2024-06-23 17:17] LABS: Anion Gap 16.1 (5-19); Potassium 3.1 mmol/L (3.5-5.1)
--- NOTE | 2024-06-23 17:35 | P.PN_ITS ---
Subjective 2 Subjective: Patient seen and examined yesterday evening patient currently intubated he does have his eyes open and is responsive to verbal stimuli as well as nods his head. Patient was informed surgery for his amputation went well and was taken in stable margins as there was no infection at the level of the amputation site. Per nursing patient's requiring less and less pressure support. Planning on possible extubation tomorrow. Vitals/I&O/Wt Last Vital Signs Temp 96.7 F L 06/24/24 19:00 Pulse 92 06/24/24 20:00 Resp 7 L 06/24/24 20:00 BP 94/60 06/24/24 20:00 Pulse Ox 100 06/24/24 20:00 O2 Del Method BiPAP 06/24/24 20:00 O2 Flow Rate 30 06/22/24 21:15 FiO2 40 06/24/24 19:26 06/24/24 06/24/24 06/24/24 06:59 14:59 22:59 Intake Total 1162.750 / 4791.435 234.576 / 162.041 2918 / 1234.576 Balance 1162.750 / 2152.435 234.576 / 417.028 1420 / 1234.576 Weight last 48 hrs Weight 228 lb 14.314 oz Weight 245 lb 2.464 oz Weight 226 lb 2.403 oz Physical Exam 2 Narrative: Left BKA dressing is on in place no signs of saturation, dressing left on in place at this time. Patient currently intubated unable to have full assessment left BKA stump Data 06/24/24 04:51 06/24/24 04:51 Micro: Microbiology 06/23/24 16:00 Gram Stain - Final Sputum - Endotracheal Tube Aspirate Sputum Culture - Preliminary 06/22/24 03:30 Body Fluid Culture - Final Peritoneal Fluid Methicillin Resis Staph Aureus A&P Assessment and plan (1) Diabetes mellitus with foot ulcer and gangrene: (2) DKA (diabetic ketoacidosis): (3) ESRD (end stage renal disease): (4) Osteomyelitis of left foot: Qualifiers: Osteomyelitis type: chronic multifocal Qualified Code(s): M86.372 - Chronic multifocal osteomyelitis, left ankle and foot Plan Nonweightbearing to the left BKA stump PT/OT Internal medicine as primary Nephrology on board General Surgery on board Patient's still intubated AM labs reviewed Orthopedics will follow Attestations 2 Medical Necessity Statement*: He needs continued hospitalization for management of multiple comorbidities including postsurgical care for left BKA, hemodialysis, elevated leukocytosis, mechanical ventilation and hypotension. Time Spent in Patient Care: 45 minutes Coding Level of Care Code Acute Code for Chg Fwd Diagnoses Diabetes mellitus with foot ulcer and gangrene E11.621; E11.52; L97.509 DKA (diabetic ketoacidosis) E11.10 ESRD (end stage renal disease) N18.6 Chronic multifocal osteomyelitis of left foot M86.372 Osteomyelitis type: chronic multifocal
[2024-06-23 17:40] LABS: Glucose Point of Care 96 mg/dL (70-110)
[2024-06-23] MEDS: lidocaine 1% 5 ML in potassium chloride premix 100 ML 26.25 ML IV (17:54)
[2024-06-23] MEDS: dexmedeTOMIDine 0.9 % NaCL 400 MCG/100 ML PREMIX 5.08 MCG IV (18:44)
[2024-06-23 19:56] LABS: Glucose Point of Care 113 mg/dL (70-110)
[2024-06-23] MEDS: norepinephrine 4 MG/250 ML BAG 3.75 MG IV (22:01)
[2024-06-23] MEDS: pantoprazole 40 mg SDV IVP (22:02)
[2024-06-23 23:25] LABS: Glucose Point of Care 140 mg/dL (70-110)
[2024-06-24] VITALS (60 sets, daily range): BP systolic 72–134; BP diastolic 50–78; PULSE 72–104; RESP 7–33; TEMP 35–37.1; O2SAT 86–100
[2024-06-24 01:04] LABS: Glucose Point of Care 166 mg/dL (70-110)
[2024-06-24] MEDS: insulin lispro 100 unit/1 mL SUBCUT ×6 (01:04→15:10)
[2024-06-24] MEDS: chlorhexidine gluconate 4% Btl 118 mL 1 APPLIC TOPICAL (01:11)
[2024-06-24 02:30] LABS: Glucose Point of Care 198 mg/dL (70-110)
[2024-06-24] MEDS: dextrose 5%-sod chloride 0.45% 1,000 ML 80 ML IV ×2 (04:02→18:21)
[2024-06-24 04:20] LABS: Glucose Point of Care 170 mg/dL (70-110)
[2024-06-24 05:06] LABS: Basophils % 0.1 %; Eosinophils % 0.1 %; Hematocrit 28.9 % (37-53); Lymphocytes # 0.4 10^3/uL (0.8-4.8); Lymphocytes % 2.1 %; Mean Corpuscular HGB Conc 33.9 g/dL (30-55); Mean Corpuscular Hemoglobin 28.8 pg (27-33); Mean Platelet Volume 11.5 fL (7.4-10.4); Monocytes # 0.6 10^3/uL (0.2-0.9); Monocytes % 3.4 %; Neutrophils # 16.37 10^3/uL (1.8-7.7); Nucleated Red Blood Cells % 0 %; Platelet Count 168 10^3/cmm (157-399); Red Cell Distribution Width 15.4 % (12.1-15.1); White Blood Count 17.59 10^3/uL (3.29-11.43)
--- NOTE | 2024-06-24 05:19 | P.PN_ITS ---
Subjective 2 Subjective: s/p HD yesterday extubated Medications: Reviewed: Yes Vitals/I&O/Wt Last Vital Signs Temp 95 F L 06/24/24 04:00 Pulse 76 06/24/24 04:30 Resp 16 06/24/24 03:23 BP 132/70 06/24/24 04:30 Pulse Ox 100 06/24/24 03:23 O2 Del Method Mechanical Ventilation 06/24/24 02:00 O2 Flow Rate 30 06/22/24 21:15 FiO2 28 06/24/24 03:23 06/23/24 06/23/24 06/24/24 14:59 22:59 06:59 Intake Total 2236.254 / 2236.254 1392.431 / 3628.685 1142.750 / 4771.435 Output Total 2639 / 2639 Balance 2236.254 / 2236.254 -1246.569 / 537.733 4367.750 / 2132.435 Weight last 48 hrs Weight 111.2 kg Weight 102.58 kg Weight 101.5 kg Weight 101.5 kg Physical Exam 2 Narrative: Patient is awake alert, no distress HEENT S1-S2 regular rate and rhythm per report Lungs clear per report s/p left BKA Data 06/24/24 04:51 06/24/24 04:51 Micro: Microbiology 06/22/24 03:30 Body Fluid Culture - Preliminary Peritoneal Fluid Coag positive Staphylococcus A&P Assessment and plan (1) ESRD (end stage renal disease): 1. End-stage renal disease: been On peritoneal dialysis, -Patient unable to do PD effectively at home due to multiple comorbidities and had been missing many PD sessions - switched to HD : s/p removal of PD catheter and PC placed - HD done yesterday , Next HD tomorrow . 2. Hyperkalemia: dialysis as above, on low potassium diet, improved 3. Anemia: Will order epogen 4. Diabetes 5. History of hypertension 6. Left heel ulcer with osteomyelitis, s/p left BKA 7. Hyponatremia: Likely hypervolemic, monitor 8. Severe metabolic acidosis, in the setting of sufficiency and probable lactic acidosis, should improve with HD 9. resp failure : Extubated Patient evaluated and audiovisual cart. Time spent 40 minutes. Attestations 2 Medical Necessity Statement*: per candida Coding Level of Care Code Acute Code for Chg Fwd Diagnoses ESRD (end stage renal disease) N18.6
[2024-06-24 05:29] LABS: Alanine Aminotransferase < 5 U/L (0-41); Alkaline Phosphatase 89 U/L (40-130); Anion Gap 17.9 (5-19); Aspartate Amino Transferase 8 U/L (0-40); Blood Urea Nitrogen 42 mg/dL (6-20); Calcium 6.8 mg/dL (8.5-10.5); Carbon Dioxide 19 mmol/L (22-29); Chloride 101 mmol/L (98-107); Creatinine Clr Calc Pharmacy 31.6823; Glomerular Filtration Rate 20.2 mL/min (90-130); Glucose 171 mg/dL (65-115); Osmolality Calculated 293 mOsm/kg (285-295); Potassium 3.9 mmol/L (3.5-5.1); Sodium 134 mmol/L (136-145); Total Bilirubin 0.2 mg/dL (0.15-1.2)
[2024-06-24 05:31] LABS: Magnesium 1.7 mg/dL (1.7-2.3); Phosphorus 3.5 mg/dL (2.5-4.5)
--- NOTE | 2024-06-24 06:00 | XRR_ITS ---
PROCEDURE INFORMATION: Exam: XR Chest Exam date and time: 06/24/2024 6:01 AM Age: 58 years old Clinical indication: Shortness of breath; Prior surgery; Surgery date: Post-operative (0-2 days); Surgery type: Dialysis cath PT could not get flat on back; Additional info: Intubated and on mechanical ventilator TECHNIQUE: Imaging protocol: Radiologic exam of the chest. Views: 1 view. COMPARISON: CR XR chest 1V portable [id number] 06/23/2024 1:14 PM FINDINGS: Tubes, catheters and devices: Endotracheal tube is present with its tip 4.3 cm above the pilo. Dual-lumen central venous catheter seen on the left with its tips overlying the SVC. Central venous catheter seen on the right with its tip overlying the SVC. Nasogastric tube is present with its tip overlying the body of the stomach. Please note that the stomach does appear to be distended. Lungs: See Diaphragm finding. Pleural spaces: Suspect small pleural effusion on the right. No pneumothorax is identified. Heart/Mediastinum: The heart is enlarged. Diaphragm: There is chronic appearing elevation of the left hemidiaphragm. There are bilateral perihilar infiltrates worse on the right than on the left. Findings may represent asymmetric edema. An inflammatory cause is certainly possible. Bones/joints: Unremarkable. XR/XR chest 1V portable [id number] IMPRESSION: 1. Cardiomegaly with bilateral perihilar infiltrates worse on the right. 2. Suspect small right pleural effusion. 3. Overall, there does not appear to be a significant interval change when compared to prior exam.
[2024-06-24] MEDS: aspirin 81 mg Chew Tablet PO (06:20)
[2024-06-24] MEDS: fentaNYL 1,000 MCG/100 ML BAG 12.5 MCG IV (07:01)
[2024-06-24 07:05] LABS: Glucose Point of Care 138 mg/dL (70-110)
[2024-06-24 07:29] LABS: Glucose Point of Care 135 mg/dL (70-110)
[2024-06-24 08:12] LABS: Glucose Point of Care 130 mg/dL (70-110)
[2024-06-24] MEDS: meropenem 1,000 MG in sodium chloride 0.9% (plus) 50 ML 100 MG IV ×2 (09:08→20:38)
[2024-06-24 09:27] LABS: Vancomycin Trough 16.1 ug/mL (10-15)
[2024-06-24 10:55] LABS: Glucose Point of Care 159 mg/dL (70-110)
--- NOTE | 2024-06-24 12:03 | PC.SOCIAL ---
IMM Updated IMM dated and initialed and placed in chart and copy given to family at bedside
[2024-06-24 12:05] LABS: Glucose Point of Care 178 mg/dL (70-110)
[2024-06-24 12:48] LABS: ABG PCO2 38.2 mmHg (35-45); ABG PH Result 7.36 (7.35-7.45); Alveolar-Arterial Oxygen Gradi 8.2 mmHg (5-10); Arterial Blood Gas Hematocrit 30.5 % (42-52); Base Excess ABG -3.8 mmol/L (-2.0-2.0); Blood Gas Allen Test Pos; Blood Gas Sample Site Radial, left; Blood Gas Sample Type Arterial; Carboxyhemoglobin 0.8 %THgb (0.4-20.1); HCO3 ABG 21.3 mmol/L (22-26); HGB O2 Sat 95.3 % (95-100); Methemoglobin 1.4 % (0.4-1.5); Oxygen Device VENT; Oxygen Saturation ABG 97.5; PO2 ABG 88.1 mmHg (80.0-100.0); PO2 FiO2 Ratio Arterial Blood 314; Potassium Level - ABG 3.6 mmol/L (3.5-5.0); Total Hemoglobin 9.9 g/dL (14-18)
--- NOTE | 2024-06-24 13:20 | PC.NURSE ---
Patient was successfully extubated at 1316. No complications occured and patient is resting well in their bed.
--- NOTE | 2024-06-24 14:03 | P.PN_ITS ---
Subjective 2 Subjective: No significant acute overnight events noted. Was found to be hypothermic and given Bear hugger. Seen him at bedside this morning, looks more awake and alert. Not in acute respiratory distress. Blood pressure still soft but holding in 80s. Family, daughter at bedside and explained about current medical condition and plan for extubation this morning Medications: Reviewed: Yes Vitals/I&O/Wt Last Vital Signs Temp 98.0 F 06/24/24 11:00 Pulse 88 06/24/24 12:00 Resp 9 L 06/24/24 11:25 BP 98/54 06/24/24 12:00 Pulse Ox 97 06/24/24 12:00 O2 Del Method Mechanical Ventilation 06/24/24 12:00 O2 Flow Rate 30 06/22/24 21:15 FiO2 28 06/24/24 11:25 06/23/24 06/24/24 06/24/24 22:59 06:59 14:59 Intake Total 1392.431 / 3628.685 1162.750 / 4791.435 127.925 / 127.925 Output Total 2639 / 2639 Balance -1246.569 / 787.223 8886.750 / 2152.435 127.925 / 127.925 Weight last 48 hrs Weight 103.825 kg Weight 111.2 kg Weight 102.58 kg Physical Exam 2 Narrative: He is alert awake, trying to communicate Chest clear to auscultation bilaterally Cardiovascular normal heart sounds Abdomen soft, nondistended, normal bowel sounds Extremities right lower extremity trace edema present, left BKA dressing present, no swelling or discharge noted. Data 06/24/24 04:51 06/24/24 04:51 Micro: Microbiology 06/23/24 16:00 Gram Stain - Final Sputum - Endotracheal Tube Aspirate Sputum Culture - Preliminary 06/22/24 03:30 Body Fluid Culture - Final Peritoneal Fluid Methicillin Resis Staph Aureus A&P Assessment and plan (1) DKA (diabetic ketoacidosis): Resolved. He is weaned off insulin drip. On fingersticks every 2 hours, sugars have been well between 130s to 150s. Will hold correction scale insulin for now. (2) Diabetes mellitus with foot ulcer and gangrene: He is s/p left BKA. Wound dressed and no active discharge present. (3) ESRD on peritoneal dialysis: Received tunneled HD catheter by surgery this afternoon. Patient undergoing hemodialysis. Blood pressure still soft. Follow-up nephrology for further recommendations. (4) Hyponatremia: Sodium 128 today. Hyponatremia likely secondary to poor p.o. intake. Will continue with normal saline at 80 mL/h. (5) Leukocytosis: Leukocytosis trending up to 35.36 and now 25.8, . Antibiotics changed to vancomycin and meropenem. Will follow-up cultures. (6) Diarrhea: GI panel still pending. Continue Imodium 2 mg every 6 hours as needed Plan 06/23-- He is sedated and intubated, undergoing hemodialysis currently. Will follow-up chest x-ray in a.m. and plan for weaning off sedation and possible extubation in a.m. depending on labs and hemodynamics. Family aware of plan of care 06/24-- He is more alert and awake, trying to communicate. Hence ABG done and extubated. Doing well postextubation. Leukocytosis improving to 17.5. Postdialysis creatinine 3.2. Peritoneal fluid culture positive for MRSA. Will do isolation and contact precautions. Already on IV vancomycin and meropenem for broad-spectrum coverage for MRSA peritonitis and pneumonitis. Chest x-ray done showed no significant interval difference as compared to admission chest x-ray. But clinically and hemodynamically improving post left BKA and hemodialysis. Blood pressure improved post extubation. Follow-up nephrology for further recommendations. Attestations 2 Medical Necessity Statement*: He needs continued hospitalization for management of multiple comorbidities including postsurgical care for left BKA, hemodialysis, elevated leukocytosis, postextubation, MRSA peritonitis and pneumonitis. Time Spent in Patient Care: 40 minutes Coding Level of Care Code Critical Care >/= 30 minutes Diagnoses DKA (diabetic ketoacidosis) E11.10 Diabetes mellitus with foot ulcer and gangrene E11.621; E11.52; L97.509 ESRD on peritoneal dialysis N18.6; Z99.2 Hyponatremia E87.1 Leukocytosis D72.829 Diarrhea R19.7 Time Spent (min) 40
[2024-06-24 14:31] LABS: Glucose Point of Care 150 mg/dL (70-110)
--- NOTE | 2024-06-24 15:05 | PC.NURSE ---
Pharmacy was called about vancomycin being given today due to van trough being high. Swapnil from pharmacy stated that this vancomycin dose should be given before dialysis and since the patient is not getting dyalisis today then go ahead and hold the vancomycin dose.
[2024-06-24] MEDS: ondansetron 2 mg/ML SDV 2 mL 4 MG IVP (15:38)
--- NOTE | 2024-06-24 17:36 | PC.NURSE ---
Addendum entered by Vinod Carias RN 06/24/24 18:14: witnessed by this nurse Original Note: This nurse and SALOMÓN Brock waisted: Fentanyl- 54.4 mls.
--- NOTE | 2024-06-24 18:14 | PC.NURSE ---
Blood sugar at 1700 was 120. Glucometer is not syncing.
--- NOTE | 2024-06-24 18:26 | PC.NURSE ---
Patient became short of breath, this nurse had to sit patient up in bed an turn up his oxygen requirements on his nasal cannula. Dr. Presley was notified and she ordered to start patient on Bipap. Respiratory therapist was notified and they were able to place patient on Bipap.
--- NOTE | 2024-06-24 20:46 | P.PN_ITS ---
Subjective 2 Subjective: Patient seen and examined this evening patient has been extubated currently on BiPAP. Unable to verbalize very well due to his BiPAP but is able to nod to questions Vitals/I&O/Wt Last Vital Signs Temp 96.7 F L 06/24/24 19:00 Pulse 92 06/24/24 20:00 Resp 7 L 06/24/24 20:00 BP 94/60 06/24/24 20:00 Pulse Ox 100 06/24/24 20:00 O2 Del Method BiPAP 06/24/24 20:00 O2 Flow Rate 30 06/22/24 21:15 FiO2 40 06/24/24 19:26 06/24/24 06/24/24 06/24/24 06:59 14:59 22:59 Intake Total 1162.750 / 4791.435 234.576 / 043.519 6869 / 1234.576 Balance 1162.750 / 2152.435 234.576 / 028.988 4705 / 1234.576 Weight last 48 hrs Weight 228 lb 14.314 oz Weight 245 lb 2.464 oz Weight 226 lb 2.403 oz Physical Exam 2 Narrative: Left BKA dressing is on in place no signs of saturation patient does endorse some sensation intact to light touch around the dressing, dressing left on in place at this time. He is able to gently bend and extend at his knee. Data 06/24/24 04:51 06/24/24 04:51 Micro: Microbiology 06/23/24 16:00 Gram Stain - Final Sputum - Endotracheal Tube Aspirate Sputum Culture - Preliminary 06/22/24 03:30 Body Fluid Culture - Final Peritoneal Fluid Methicillin Resis Staph Aureus A&P Assessment and plan (1) Diabetes mellitus with foot ulcer and gangrene: (2) DKA (diabetic ketoacidosis): (3) ESRD (end stage renal disease): (4) Osteomyelitis of left foot: Qualifiers: Osteomyelitis type: chronic multifocal Qualified Code(s): M86.372 - Chronic multifocal osteomyelitis, left ankle and foot Plan Nonweightbearing to the left BKA stump PT/OT Internal medicine as primary Nephrology on board General Surgery on board Patient's been extubated today Plan to change dressing tomorrow AM labs reviewed Orthopedics will follow along tomorrow Attestations 2 Medical Necessity Statement*: He needs continued hospitalization for management of multiple comorbidities including postsurgical care for left BKA, hemodialysis, elevated leukocytosis, postextubation, MRSA peritonitis and pneumonitis. Time Spent in Patient Care: 40 minutes Coding Level of Care Code Acute Code for Chg Fwd Diagnoses Diabetes mellitus with foot ulcer and gangrene E11.621; E11.52; L97.509 DKA (diabetic ketoacidosis) E11.10 ESRD (end stage renal disease) N18.6 Chronic multifocal osteomyelitis of left foot M86.372 Osteomyelitis type: chronic multifocal Time Spent (min) 20
--- NOTE | 2024-06-24 20:57 | PC.NURSE ---
Addendum entered by ELIS Andrews 06/25/24 06:41: Sugar at 06:30 128. No insulin per sliding scale. Addendum entered by ELIS Andrews 06/25/24 04:25: Blood sugar for 04:30 132. No insulin per sliding scale. Addendum entered by ELIS Andrews 06/25/24 02:53: Sugar 143 at 02:30. 2 units sliding scale. Addendum entered by ELIS Andrews 06/25/24 00:26: Sugar 143 at 00:30. 2 units sliding scale. Addendum entered by ELIS Andrews 06/24/24 22:28: Sugars still not synching over. 136 at 22:30. No insulin per sliding scale. Original Note: Blood sugar Blood sugar not yet synched over; last check was 119 at 20:30. No insulin given per protocol, documented in NOV.
[2024-06-24] MEDS: acetaminophen 1,000 MG/100 ML PIGGYBACK 400 MG IV (21:34)
[2024-06-24] MEDS: pantoprazole 40 mg SDV IVP (22:24)
[2024-06-25] VITALS (106 sets, daily range): BP systolic 80–140; BP diastolic 50–92; PULSE 83–115; RESP 7–29; TEMP 35.8–36.4; O2SAT 93–100; BMI 36.3
[2024-06-25] MEDS: insulin lispro 100 unit/1 mL SUBCUT ×3 (00:29→16:57)
[2024-06-25] MEDS: HYDROmorphone 1 mg/mL INJ 1 mL 0.4 MG IVP (03:25)
[2024-06-25 05:54] LABS: Basophils % 0.1 %; Eosinophils # 0.1 10^3/uL (0.0-0.8); Eosinophils % 0.4 %; Hematocrit 31.2 % (37-53); Lymphocytes # 0.6 10^3/uL (0.8-4.8); Lymphocytes % 2.7 %; Mean Corpuscular HGB Conc 32.7 g/dL (30-55); Mean Corpuscular Hemoglobin 28.4 pg (27-33); Mean Corpuscular Volume 86.9 fl (82-101); Mean Platelet Volume 12.1 fL (7.4-10.4); Monocytes # 0.9 10^3/uL (0.2-0.9); Monocytes % 4.1 %; Neutrophils # 20.39 10^3/uL (1.8-7.7); Neutrophils % 91.6 %; Nucleated Red Blood Cells % 0 %; Platelet Count 176 10^3/cmm (157-399); Red Blood Count 3.59 10^6/uL (3.85-5.65); Red Cell Distribution Width 15.9 % (12.1-15.1); White Blood Count 22.26 10^3/uL (3.29-11.43)
[2024-06-25 06:18] LABS: Alanine Aminotransferase < 5 U/L (0-41); Albumin Level 2.1 g/dL (3.5-5.2); Alkaline Phosphatase 114 U/L (40-130); Anion Gap 15.9 (5-19); Aspartate Amino Transferase 11 U/L (0-40); Blood Urea Nitrogen 44 mg/dL (6-20); Calcium 6.8 mg/dL (8.5-10.5); Carbon Dioxide 20 mmol/L (22-29); Chloride 101 mmol/L (98-107); Globulin 2.7 g/dL (1.3-4.6); Glomerular Filtration Rate 17.6 mL/min (90-130); Glucose 153 mg/dL (65-115); Osmolality Calculated 290 mOsm/kg (285-295); Potassium 3.9 mmol/L (3.5-5.1); Sodium 133 mmol/L (136-145); Total Bilirubin 0.2 mg/dL (0.15-1.2); Total Protein 4.8 g/dL (6.6-8.7)
[2024-06-25 06:19] LABS: Vancomycin Random 12.6 ug/mL (20.0-40.0)
[2024-06-25] MEDS: dextrose 5%-sod chloride 0.45% 1,000 ML 80 ML IV ×2 (06:51→19:22)
--- NOTE | 2024-06-25 07:23 | XR_ITS ---
WS: [id number] Portable AP upright chest, 06/25/2024 Clinical Data: SOB Comparison: Portable chest, 06/24/2024 Findings: The right internal jugular venous catheter and left dialysis catheter remain in the same po sition, but the nasogastric tube and endotracheal tube have been removed. There are monitor leads on the chest wall. No nodules, masses or effusions are seen. The diaphragms are elevated. The stomach is dilated. There are bilateral patchy hilar opacities which may be related to the loss of lung volume from diaphragmatic elevation. XR/XR chest 1V portable [id number] Impression: 1. Removal of nasogastric tube and endotracheal tube. 2. Bilateral hilar opacities unchanged. 3. Elevation of both diaphragms with distended stomach.
--- NOTE | 2024-06-25 07:32 | P.PN_ITS ---
Subjective 2 Subjective: on bipap feel sbetter Medications: Reviewed: Yes Vitals/I&O/Wt Last Vital Signs Temp 97.3 F L 06/25/24 06:57 Pulse 93 06/25/24 06:00 Resp 19 H 06/25/24 06:00 BP 103/80 06/25/24 06:00 Pulse Ox 93 06/25/24 06:00 O2 Del Method BiPAP 06/24/24 20:00 O2 Flow Rate 30 06/22/24 21:15 FiO2 45 06/25/24 04:00 06/24/24 06/25/24 06/25/24 22:59 06:59 14:59 Intake Total 1150 / 4340.483 8069.062 / 2403.638 Output Total 0 / 0 Balance 1150 / 5862.735 1664.062 / 2403.638 Weight last 48 hrs Weight 111.5 kg Weight 111.5 kg Weight 103.825 kg Weight 111.2 kg Physical Exam 2 Narrative: Patient is awake alert, no distress HEENT S1-S2 regular rate and rhythm per report Lungs clear per report s/p left BKA Data 06/25/24 05:42 06/25/24 05:42 Micro: Microbiology 06/23/24 16:00 Gram Stain - Final Sputum - Endotracheal Tube Aspirate Sputum Culture - Preliminary 06/22/24 03:30 Body Fluid Culture - Final Peritoneal Fluid Methicillin Resis Staph Aureus A&P Assessment and plan (1) ESRD (end stage renal disease): 1. End-stage renal disease: been On peritoneal dialysis, -Patient unable to do PD effectively at home due to multiple comorbidities and had been missing many PD sessions - switched to HD : s/p removal of PD catheter and PC placed - HD today 2. Hyperkalemia: dialysis as above, on low potassium diet, improved 3. Anemia: Will order epogen 4. Diabetes 5. History of hypertension 6. Left heel ulcer with osteomyelitis, s/p left BKA 7. Hyponatremia: Likely hypervolemic, monitor 8. metabolic acidosis, in the setting of sufficiency and probable lactic acidosis, should improve with HD 9. resp failure : Extubated Patient evaluated and audiovisual cart. Time spent 40 minutes. Attestations 2 Medical Necessity Statement*: per candida Coding Level of Care Code Acute Code for Chg Fwd Diagnoses ESRD (end stage renal disease) N18.6
[2024-06-25 07:53] LABS: Glucose Point of Care 120 mg/dL (70-110)
[2024-06-25 07:53] LABS: Glucose Point of Care 132 mg/dL (70-110)
[2024-06-25 07:53] LABS: Glucose Point of Care 136 mg/dL (70-110)
[2024-06-25 07:53] LABS: Glucose Point of Care 119 mg/dL (70-110)
[2024-06-25 07:53] LABS: Glucose Point of Care 143 mg/dL (70-110)
[2024-06-25 07:53] LABS: Glucose Point of Care 143 mg/dL (70-110)
[2024-06-25 07:53] LABS: Glucose Point of Care 128 mg/dL (70-110)
[2024-06-25] MEDS: vancomycin 500 MG in sodium chloride 0.9% (plus) 100 ML 200 MG IV (07:53)
[2024-06-25] MEDS: meropenem 1,000 MG in sodium chloride 0.9% (plus) 50 ML 100 MG IV ×2 (07:53→19:42)
--- NOTE | 2024-06-25 08:12 | PC.NURSE ---
Patient was able to do well with a wet sponge, then ice chips, then a sip of water. Patient did not clear his throat with any of these.
[2024-06-25 08:28] LABS: Glucose Point of Care 137 mg/dL (70-110)
--- NOTE | 2024-06-25 09:59 | P.PN_ITS ---
Subjective 2 Subjective: Patient seen and examined after placement of left IJ permacath and removal of peritoneal dialysis catheter. His catheter has been used successfully and the peritoneal dialysis catheter site is not leaking. He denies any abdominal pain Vitals/I&O/Wt Last Vital Signs Temp 97.5 F L 06/25/24 08:30 Pulse 99 06/25/24 08:30 Resp 14 06/25/24 08:30 BP 116/67 06/25/24 08:30 Pulse Ox 100 06/25/24 08:30 O2 Del Method Nasal Cannula 06/25/24 08:30 O2 Flow Rate 4 06/25/24 08:30 FiO2 45 06/25/24 04:00 06/24/24 06/25/24 06/25/24 22:59 06:59 14:59 Intake Total 1150 / 8189.985 0487.062 / 2403.638 Output Total 0 / 0 Balance 1150 / 2092.624 6766.062 / 2403.638 Weight last 48 hrs Weight 245 lb 13.047 oz Weight 245 lb 13.047 oz Weight 228 lb 14.314 oz Weight 245 lb 2.464 oz Physical Exam 2 Narrative: General: No acute distress, awake alert and oriented x 3 Abdomen: Soft, nontender, nondistended Left IJ permacath site without erythema or exudate Data 06/25/24 05:42 06/25/24 05:42 Micro: Microbiology 06/23/24 16:00 Gram Stain - Final Sputum - Endotracheal Tube Aspirate Sputum Culture - Preliminary 06/22/24 03:30 Body Fluid Culture - Final Peritoneal Fluid Methicillin Resis Staph Aureus A&P Assessment and plan (1) ESRD (end stage renal disease): Plan Replace abdominal bandage. It can be removed tomorrow and he does not need another bandage Permacath usage per nephrology No further surgical intervention General Surgery will sign off. Please reconsult if the need arises Attestations 2 Medical Necessity Statement*: Per primary Coding Level of Care Code 92769 Diagnoses ESRD (end stage renal disease) N18.6
[2024-06-25] MEDS: albumin 12.5 GM/50 ML VIAL IV ×4 (10:19→11:19)
[2024-06-25] MEDS: heparin, porcine 1,000 unit/mL INJ 10 mL 1000 UNIT IV (10:38)
--- NOTE | 2024-06-25 12:36 | P.PN_ITS ---
Subjective 2 Subjective: No acute overnight events noted. He was extubated yesterday afternoon and has been tolerating nasal cannula well, saturating 100% on 4 L nasal cannula. Looks more calm and not in acute distress. Was able to engage in conversation this morning and understands plan of care. He is off Levophed, maintaining blood pressure. Medications: Reviewed: Yes Vitals/I&O/Wt Last Vital Signs Temp 97.2 F L 06/25/24 10:59 Pulse 96 06/25/24 10:59 Resp 17 06/25/24 10:59 BP 106/59 06/25/24 10:59 Pulse Ox 100 06/25/24 10:15 O2 Del Method Nasal Cannula 06/25/24 10:15 O2 Flow Rate 2.5 06/25/24 10:15 FiO2 45 06/25/24 04:00 06/24/24 06/25/24 06/25/24 22:59 06:59 14:59 Intake Total 1150 / 8912.121 8200.062 / 2403.638 143.875 / 143.875 Output Total 0 / 0 Balance 1150 / 9661.911 8240.062 / 2403.638 143.875 / 143.875 Weight last 48 hrs Weight 111.5 kg Weight 111.5 kg Weight 103.825 kg Weight 111.2 kg Physical Exam 2 Narrative: He is alert awake oriented x 3, not in acute distress Chest bilateral scattered rhonchi present, bilateral decreased air entry Cardiovascular normal heart sounds Abdomen soft nontender nondistended normal bowel sounds Extremities right lower extremity 1+ pitting edema present, left BKA dressing present no discharge or bleeding seen. Data 06/25/24 05:42 06/25/24 05:42 Micro: Microbiology 06/23/24 16:00 Gram Stain - Final Sputum - Endotracheal Tube Aspirate Sputum Culture - Preliminary Corynebacterium Species 06/22/24 03:30 Body Fluid Culture - Final Peritoneal Fluid Methicillin Resis Staph Aureus A&P Assessment and plan (1) DKA (diabetic ketoacidosis): Resolved. He is weaned off insulin drip. On fingersticks every 6 hours, sugars have been well between 130s to 150s. Will hold correction scale insulin for now. (2) Diabetes mellitus with foot ulcer and gangrene: He is s/p left BKA. Wound dressed and no active discharge present. (3) ESRD on peritoneal dialysis: Received tunneled HD catheter by surgery this afternoon. Patient undergoing hemodialysis. Blood pressure still soft. Follow-up nephrology for further recommendations. (4) Hyponatremia: Sodium 128 today. Hyponatremia likely secondary to poor p.o. intake. Will continue with normal saline at 80 mL/h. (5) Leukocytosis: Leukocytosis trending up to 35.36 and now 25.8, . Antibiotics changed to vancomycin and meropenem. Will follow-up cultures. (6) Diarrhea: GI panel still pending. Continue Imodium 2 mg every 6 hours as needed Plan 06/23-- He is sedated and intubated, undergoing hemodialysis currently. Will follow-up chest x-ray in a.m. and plan for weaning off sedation and possible extubation in a.m. depending on labs and hemodynamics. Family aware of plan of care 06/24-- He is more alert and awake, trying to communicate. Hence ABG done and extubated. Doing well postextubation. Leukocytosis improving to 17.5. Postdialysis creatinine 3.2. Peritoneal fluid culture positive for MRSA. Will do isolation and contact precautions. Already on IV vancomycin and meropenem for broad-spectrum coverage for MRSA peritonitis and pneumonitis. Chest x-ray done showed no significant interval difference as compared to admission chest x-ray. But clinically and hemodynamically improving post left BKA and hemodialysis. Blood pressure improved post extubation. Follow-up nephrology for further recommendations. 06/25-- He is off Levophed, extubated doing well on 2.5 L nasal cannula saturating 99%. Required intermittent BiPAP postextubation and overnight. Repeat chest x-ray showed unchanged opacity but distended abdomen. Continue IV vancomycin as per pharmacy recommendations and IV meropenem Will follow-up blood cultures Hemodialysis today WBC count 22.2 slightly elevated from 17.5, sodium 133, creatinine 3.6, hemoglobin 10.2. Follow-up nephrology, orthopedics for further recommendations. PT/OT eval in process Attestations 2 Medical Necessity Statement*: He needs continued hospitalization for management of multiple comorbidities including postsurgical care for left BKA, hemodialysis, elevated leukocytosis, postextubation, MRSA peritonitis and pneumonitis. Respiratory status still unstable hence will continue to monitor in ICU Time Spent in Patient Care: 25 minutes Coding Level of Care Code Acute Code for Chg Fwd Diagnoses DKA (diabetic ketoacidosis) E11.10 Diabetes mellitus with foot ulcer and gangrene E11.621; E11.52; L97.509 ESRD on peritoneal dialysis N18.6; Z99.2 Hyponatremia E87.1 Leukocytosis D72.829 Diarrhea R19.7 Time Spent (min) 25
[2024-06-25] MEDS: HYDROmorphone 1 mg/mL INJ 1 mL 0.3 MG IVP (14:00)
[2024-06-25] MEDS: nystatin powder 15 gm Btl 1 APPLIC TOPICAL (14:00)
--- NOTE | 2024-06-25 15:39 | PC.OT ---
OT EVALUATION HELD DUE TO PATIENT JUST COMPLETING DIALYSIS AND LOW BP.
[2024-06-25 16:55] LABS: Glucose Point of Care 149 mg/dL (70-110)
[2024-06-25 16:55] LABS: Glucose Point of Care 121 mg/dL (70-110)
[2024-06-25] MEDS: vancomycin 1,000 MG in sodium chloride 0.9% 250 ML 250 MG IV (17:01)
--- NOTE | 2024-06-25 17:30 | P.PN_ITS ---
Vitals/I&O/Wt Last Vital Signs Temp 97.5 F L 06/26/24 10:00 Pulse 100 06/26/24 12:30 Resp 20 H 06/26/24 12:30 BP 123/75 06/26/24 12:30 Pulse Ox 100 06/26/24 12:30 O2 Del Method Nasal Cannula 06/26/24 12:30 O2 Flow Rate 2.5 06/26/24 12:30 FiO2 45 06/26/24 04:00 06/25/24 06/26/24 06/26/24 22:59 06:59 14:59 Intake Total 1300 / 2147.250 993.542 / 3140.792 240 / 240 Output Total 950 / 950 Balance 1300 / -1047.750 993.542 / -54.208 -710 / -710 Weight last 48 hrs Weight 244 lb 11.41 oz Weight 242 lb 4.608 oz Weight 245 lb 13.047 oz Weight 245 lb 13.047 oz Physical Exam 2 Urinary Catheter Management: Reyes: Cath Placed During This Visit: yes Urinary Catheter Date of Insertion: 06/26/24 Urinary Catheter Time of Insertion: 09:41 Data 06/26/24 04:25 06/26/24 04:25 Micro: Microbiology 06/23/24 16:00 Gram Stain - Final Sputum - Endotracheal Tube Aspirate Sputum Culture - Preliminary Corynebacterium Species Coding Level of Care Code Acute Code for Chg Fwd
[2024-06-25 21:06] LABS: Glucose Point of Care 123 mg/dL (70-110)
[2024-06-25] MEDS: pantoprazole 40 mg SDV IVP (21:06)
[2024-06-26] VITALS (74 sets, daily range): BP systolic 75–152; BP diastolic 51–82; PULSE 88–109; RESP 9–28; TEMP 36.3–36.8; O2SAT 94–100
[2024-06-26 00:54] LABS: Glucose Point of Care 156 mg/dL (70-110)
[2024-06-26 01:02] LABS: Magnesium 1.7 mg/dL (1.7-2.3); Potassium 3.6 mmol/L (3.5-5.1)
[2024-06-26] MEDS: insulin lispro 100 unit/1 mL SUBCUT ×4 (01:47→20:04)
[2024-06-26] MEDS: HYDROmorphone 1 mg/mL INJ 1 mL 0.3 MG IVP (04:24)
[2024-06-26 04:41] LABS: Basophils % 0.1 %; Eosinophils % 0.2 %; Hematocrit 30.8 % (37-53); Lymphocytes # 0.5 10^3/uL (0.8-4.8); Lymphocytes % 1.9 %; Mean Corpuscular HGB Conc 32.5 g/dL (30-55); Mean Corpuscular Volume 89.3 fl (82-101); Mean Platelet Volume 11.5 fL (7.4-10.4); Monocytes # 0.9 10^3/uL (0.2-0.9); Monocytes % 3.7 %; Nucleated Red Blood Cells % 0 %; Platelet Count 150 10^3/cmm (157-399); Red Blood Count 3.45 10^6/uL (3.85-5.65); Red Cell Distribution Width 16.2 % (12.1-15.1); White Blood Count 24.08 10^3/uL (3.29-11.43)
[2024-06-26 05:01] LABS: Anion Gap 12.9 (5-19); Blood Urea Nitrogen 28 mg/dL (6-20); Carbon Dioxide 24 mmol/L (22-29); Chloride 101 mmol/L (98-107); Creatinine Clr Calc Pharmacy 34.7506; Glomerular Filtration Rate 22.6 mL/min (90-130); Glucose 211 mg/dL (65-115); Magnesium 1.7 mg/dL (1.7-2.3); Osmolality Calculated 290 mOsm/kg (285-295); Potassium 3.9 mmol/L (3.5-5.1); Sodium 134 mmol/L (136-145); Vancomycin Random 20.6 ug/mL (20.0-40.0)
[2024-06-26] MEDS: aspirin 81 mg Chew Tablet PO (05:35)
--- NOTE | 2024-06-26 06:52 | PC.NURSE ---
Patient with one event vtach 11 beats, vitals remained stable at time. Later in shift patient required low dose levophed while sleeping to keep map above 65. Hospitalist contacted/ labs check during night. No changes in treatment at this time. continue to monitor.
[2024-06-26] MEDS: dextrose 5%-sod chloride 0.45% 1,000 ML 80 ML IV ×2 (06:57→19:55)
[2024-06-26] MEDS: meropenem 1,000 MG in sodium chloride 0.9% (plus) 50 ML 100 MG IV ×2 (08:47→19:56)
[2024-06-26] MEDS: nystatin powder 15 gm Btl 1 APPLIC TOPICAL ×2 (08:48→17:05)
--- NOTE | 2024-06-26 11:15 | PC.SOCIAL ---
IMM Updated IMM dated and initialed, copy placed in chart and given to patient.
--- NOTE | 2024-06-26 11:36 | P.PN_ITS ---
Subjective 2 Subjective: No acute overnight issues noted. Denies feeling okay, no new complaints. was on BiPaP overnight. Hemodynamically and respiratory portillo stable. Medications: Reviewed: Yes Vitals/I&O/Wt Last Vital Signs Temp 97.5 F L 06/26/24 10:00 Pulse 98 06/26/24 10:00 Resp 18 06/26/24 10:00 BP 96/61 06/26/24 10:00 Pulse Ox 98 06/26/24 10:00 O2 Del Method Nasal Cannula 06/26/24 10:00 O2 Flow Rate 2.5 06/26/24 10:00 FiO2 45 06/26/24 04:00 06/25/24 06/26/24 06/26/24 22:59 06:59 14:59 Intake Total 1300 / 2147.250 993.542 / 3140.792 Output Total 950 / 950 Balance 1300 / -1047.750 993.542 / -54.208 -950 / -950 Weight last 48 hrs Weight 111 kg Weight 109.9 kg Weight 111.5 kg Weight 111.5 kg Physical Exam 2 Narrative: He is alert awake oriented x 3, not in acute distress Chest bilateral scattered rhonchi present, bilateral decreased air entry Cardiovascular normal heart sounds Abdomen soft nontender nondistended normal bowel sounds Extremities right lower extremity 1+ pitting edema present, left BKA dressing present no discharge or bleeding seen. Urinary Catheter Management: Reyes: Cath Placed During This Visit: yes Urinary Catheter Date of Insertion: 06/26/24 Urinary Catheter Time of Insertion: 09:41 Data 06/26/24 04:25 06/26/24 04:25 Micro: Microbiology 06/23/24 16:00 Gram Stain - Final Sputum - Endotracheal Tube Aspirate Sputum Culture - Preliminary Corynebacterium Species A&P Assessment and plan (1) DKA (diabetic ketoacidosis): Resolved. He is weaned off insulin drip. On fingersticks every 6 hours, sugars have been well between 130s to 150s. Will hold correction scale insulin for now. (2) Diabetes mellitus with foot ulcer and gangrene: He is s/p left BKA. Wound dressed and no active discharge present. (3) ESRD on peritoneal dialysis: Received tunneled HD catheter by surgery this afternoon. Patient undergoing hemodialysis. Blood pressure still soft. Follow-up nephrology for further recommendations. (4) Hyponatremia: Sodium 128 today. Hyponatremia likely secondary to poor p.o. intake. Will continue with normal saline at 80 mL/h. (5) Leukocytosis: Leukocytosis trending up to 35.36 and now 25.8, . Antibiotics changed to vancomycin and meropenem. Will follow-up cultures. (6) Diarrhea: GI panel still pending. Continue Imodium 2 mg every 6 hours as needed Plan 06/23-- He is sedated and intubated, undergoing hemodialysis currently. Will follow-up chest x-ray in a.m. and plan for weaning off sedation and possible extubation in a.m. depending on labs and hemodynamics. Family aware of plan of care 06/24-- He is more alert and awake, trying to communicate. Hence ABG done and extubated. Doing well postextubation. Leukocytosis improving to 17.5. Postdialysis creatinine 3.2. Peritoneal fluid culture positive for MRSA. Will do isolation and contact precautions. Already on IV vancomycin and meropenem for broad-spectrum coverage for MRSA peritonitis and pneumonitis. Chest x-ray done showed no significant interval difference as compared to admission chest x-ray. But clinically and hemodynamically improving post left BKA and hemodialysis. Blood pressure improved post extubation. Follow-up nephrology for further recommendations. 06/25-- He is off Levophed, extubated doing well on 2.5 L nasal cannula saturating 99%. Required intermittent BiPAP postextubation and overnight. Repeat chest x-ray showed unchanged opacity but distended abdomen. Continue IV vancomycin as per pharmacy recommendations and IV meropenem Will follow-up blood cultures Hemodialysis today WBC count 22.2 slightly elevated from 17.5, sodium 133, creatinine 3.6, hemoglobin 10.2. Follow-up nephrology, orthopedics for further recommendations. PT/OT eval in process 06/26-- Leucocytosis trending up to 24, Will need proper dosing of vancomycin. Looks like getting underdosed on vancomycin. Will continue meropenem for now. Will discuss with ortho about appropriate antibiotics. Continue HD as per nephrology. Will monitor for today in ICU and Transfer to [facility] in am. Although worsening leukocytosis but he seems a septic and comfortable and is hemodynamically and respiratory portillo stable. Will continue to monitor. Will start him on soft diet today Attestations 2 Medical Necessity Statement*: He needs continued hospitalization for management of multiple comorbidities including postsurgical care for left BKA, hemodialysis, elevated leukocytosis, postextubation, MRSA peritonitis and pneumonitis and has worsening leukocytosis in spite of antibiotics Time Spent in Patient Care: 25 minutes Coding Level of Care Code Acute Code for Chg Fwd Diagnoses DKA (diabetic ketoacidosis) E11.10 Diabetes mellitus with foot ulcer and gangrene E11.621; E11.52; L97.509 ESRD on peritoneal dialysis N18.6; Z99.2 Hyponatremia E87.1 Leukocytosis D72.829 Diarrhea R19.7 Time Spent (min) 25
[2024-06-26 12:21] LABS: Glucose Point of Care 63 mg/dL (70-110)
[2024-06-26 16:46] LABS: Glucose Point of Care 124 mg/dL (70-110)
[2024-06-26] MEDS: vancomycin 1,000 MG in sodium chloride 0.9% 250 ML 250 MG IV (17:02)
[2024-06-26 20:41] LABS: Glucose Point of Care 192 mg/dL (70-110)
[2024-06-26] MEDS: norepinephrine 4 MG/250 ML BAG 7.5 MG IV (21:32)
[2024-06-26] MEDS: pantoprazole 40 mg SDV IVP (21:32)
--- NOTE | 2024-06-26 21:52 | P.PN_ITS ---
Subjective 2 Subjective: no new c/o Medications: Reviewed: Yes Vitals/I&O/Wt Last Vital Signs Temp 97.7 F 06/26/24 17:30 Pulse 99 06/26/24 20:23 Resp 15 06/26/24 19:30 BP 94/58 06/26/24 19:30 Pulse Ox 99 06/26/24 20:23 O2 Del Method Nasal Cannula 06/26/24 19:15 O2 Flow Rate 2 06/26/24 19:15 FiO2 45 06/26/24 20:23 06/26/24 06/26/24 06/26/24 06:59 14:59 22:59 Intake Total 993.542 / 3140.792 240 / 240 1575 / 1815 Output Total 950 / 950 Balance 993.542 / -54.208 -710 / -710 1575 / 865 Weight last 48 hrs Weight 111 kg Weight 109.9 kg Weight 111.5 kg Weight 111.5 kg Physical Exam 2 Narrative: Patient is awake alert, no distress HEENT S1-S2 regular rate and rhythm per report Lungs clear per report s/p left BKA Urinary Catheter Management: Reyes: Cath Placed During This Visit: yes Reason for Continuing Indwelling Catheter: Accurate Measurement of Urinary Output in Critically Ill Patients Urinary Catheter Date of Insertion: 06/26/24 Urinary Catheter Time of Insertion: 09:41 Data 06/26/24 04:25 06/26/24 04:25 Micro: Microbiology 06/21/24 16:50 Blood Culture - Final Blood NO GROWTH AFTER 5 DAYS 06/21/24 16:48 Blood Culture - Final Blood NO GROWTH AFTER 5 DAYS 06/23/24 16:00 Gram Stain - Final Sputum - Endotracheal Tube Aspirate Sputum Culture - Final A&P Assessment and plan (1) ESRD (end stage renal disease): 1. End-stage renal disease: been On peritoneal dialysis, -Patient unable to do PD effectively at home due to multiple comorbidities and had been missing many PD sessions - switched to HD : s/p removal of PD catheter and PC placed , HD Tomorrow 2. Hyperkalemia: dialysis as above, on low potassium diet, improved 3. Anemia: Will order epogen 4. Diabetes 5. History of hypertension 6. Left heel ulcer with osteomyelitis, s/p left BKA 7. Hyponatremia: Likely hypervolemic, monitor 8. metabolic acidosis, in the setting of sufficiency and probable lactic acidosis, should improve with HD 9. resp failure : Extubated Patient evaluated and audiovisual cart. Time spent 40 minutes. Attestations 2 Medical Necessity Statement*: per candida Coding Level of Care Code Acute Code for Chg Fwd Diagnoses ESRD (end stage renal disease) N18.6
[2024-06-27] VITALS (68 sets, daily range): BP systolic 73–133; BP diastolic 42–77; PULSE 84–138; RESP 12–25; TEMP 36.3–36.8; O2SAT 93–100
[2024-06-27] MEDS: HYDROmorphone 1 mg/mL INJ 1 mL 0.3 MG IVP ×2 (02:19→11:51)
[2024-06-27 02:53] LABS: Glucose Point of Care 115 mg/dL (70-110)
[2024-06-27 04:13] LABS: Basophils % 0.2 %; Eosinophils # 0.2 10^3/uL (0.0-0.8); Lymphocytes # 0.6 10^3/uL (0.8-4.8); Lymphocytes % 3.1 %; Mean Corpuscular HGB Conc 31.6 g/dL (30-55); Mean Corpuscular Hemoglobin 28.5 pg (27-33); Mean Corpuscular Volume 90.1 fl (82-101); Mean Platelet Volume 12.2 fL (7.4-10.4); Monocytes # 1.2 10^3/uL (0.2-0.9); Monocytes % 5.8 %; Neutrophils # 17.48 10^3/uL (1.8-7.7); Neutrophils % 88.6 %; Nucleated Red Blood Cells % 0 %; Platelet Count 163 10^3/cmm (157-399); Red Blood Count 3.44 10^6/uL (3.85-5.65); Red Cell Distribution Width 16.3 % (12.1-15.1); White Blood Count 19.74 10^3/uL (3.29-11.43)
[2024-06-27 04:44] LABS: Vancomycin Trough 27.5 ug/mL (10-15)
[2024-06-27] MEDS: aspirin 81 mg Chew Tablet PO (05:03)
[2024-06-27 07:35] LABS: Glucose Point of Care 114 mg/dL (70-110)
[2024-06-27 07:35] LABS: Glucose Point of Care 152 mg/dL (70-110)
[2024-06-27] MEDS: heparin, porcine 1,000 unit/mL INJ 10 mL 1000 UNIT IV (07:40)
[2024-06-27] MEDS: dextrose 5%-sod chloride 0.45% 1,000 ML 80 ML IV (09:14)
[2024-06-27] MEDS: polyethylene glycol 3350 Pkt 17 gm PO (09:14)
[2024-06-27] MEDS: meropenem 1,000 MG in sodium chloride 0.9% (plus) 50 ML 100 MG IV ×2 (09:14→20:56)
[2024-06-27] MEDS: albumin 12.5 GM/50 ML VIAL IV (09:15)
[2024-06-27] MEDS: nystatin powder 15 gm Btl 1 APPLIC TOPICAL ×2 (09:15→18:06)
--- NOTE | 2024-06-27 10:59 | PC.PT ---
Patient receiving dialysis. Nursing requests hold today.
[2024-06-27 11:49] LABS: Glucose Point of Care 141 mg/dL (70-110)
--- NOTE | 2024-06-27 12:06 | P.PN_ITS ---
Subjective 2 Subjective: getting HD Medications: Reviewed: Yes Vitals/I&O/Wt Last Vital Signs Temp 97.7 F 06/27/24 10:52 Pulse 106 H 06/27/24 10:52 Resp 19 H 06/27/24 10:52 BP 117/71 06/27/24 10:52 Pulse Ox 100 06/27/24 07:00 O2 Del Method Nasal Cannula 06/27/24 05:00 O2 Flow Rate 2 06/26/24 19:15 FiO2 2 06/27/24 05:00 06/26/24 06/27/24 06/27/24 22:59 06:59 14:59 Intake Total 1576.625 / 1816.625 89.688 / 7709.573 9558 / 1650 Output Total 100 / 1050 2108 / 2108 Balance 1576.625 / 866.625 -10.312 / 856.313 -458 / -458 Weight last 48 hrs Weight 114 kg Weight 110 kg Weight 111 kg Weight 109.9 kg Physical Exam 2 Narrative: Patient is awake alert, no distress HEENT S1-S2 regular rate and rhythm per report Lungs clear per report s/p left BKA Urinary Catheter Management: Reyes: Cath Placed During This Visit: yes Reason for Continuing Indwelling Catheter: Accurate Measurement of Urinary Output in Critically Ill Patients Urinary Catheter Date of Insertion: 06/26/24 Urinary Catheter Time of Insertion: 09:41 Data 06/27/24 04:00 06/26/24 04:25 Micro: Microbiology 06/21/24 16:50 Blood Culture - Final Blood NO GROWTH AFTER 5 DAYS 06/21/24 16:48 Blood Culture - Final Blood NO GROWTH AFTER 5 DAYS 06/23/24 16:00 Gram Stain - Final Sputum - Endotracheal Tube Aspirate Sputum Culture - Final A&P Assessment and plan (1) ESRD (end stage renal disease): 1. End-stage renal disease: been On peritoneal dialysis, -Patient unable to do PD effectively at home due to multiple comorbidities and had been missing many PD sessions - switched to HD : s/p removal of PD catheter and PC placed , HD Today 2. Hyperkalemia: dialysis as above, on low potassium diet, improved 3. Anemia: Will order epogen 4. Diabetes 5. History of hypertension 6. Left heel ulcer with osteomyelitis, s/p left BKA 7. Hyponatremia: Likely hypervolemic, monitor 8. metabolic acidosis, in the setting of sufficiency and probable lactic acidosis, should improve with HD 9. resp failure : Extubated Patient evaluated and audiovisual cart. Time spent 40 minutes. Attestations 2 Medical Necessity Statement*: per candida Coding Level of Care Code Acute Code for Chg Fwd Diagnoses ESRD (end stage renal disease) N18.6
--- NOTE | 2024-06-27 13:02 | PM.PN ---
Subjective Subjective: No acute overnight events noted. Seen him at bedside this morning, feels better. Undergoing hemodialysis. Medications: Reviewed: Yes Vitals/I&O/Wt Last Vital Signs Temp 97.5 F L 06/27/24 12:00 Pulse 108 H 06/27/24 12:00 Resp 15 06/27/24 12:00 BP 102/65 06/27/24 12:00 Pulse Ox 100 06/27/24 12:00 O2 Del Method Nasal Cannula 06/27/24 05:00 O2 Flow Rate 2 06/26/24 19:15 FiO2 2 06/27/24 05:00 06/26/24 06/27/24 06/27/24 22:59 06:59 14:59 Intake Total 1576.625 / 1816.625 89.688 / 5164.037 2258 / 1650 Output Total 100 / 1050 2108 / 2108 Balance 1576.625 / 866.625 -10.312 / 856.313 -458 / -458 Weight last 48 hrs Weight 114 kg Weight 110 kg Weight 111 kg Weight 109.9 kg Physical Exam Narrative: He is alert awake oriented x 3, not in acute distress Chest bilateral scattered rhonchi present, bilateral decreased air entry Cardiovascular normal heart sounds Abdomen soft nontender nondistended normal bowel sounds Extremities right lower extremity 1+ pitting edema present, left BKA dressing present no discharge or bleeding seen. Urinary Catheter Management: Reyes: Cath Placed During This Visit: yes Reason for Continuing Indwelling Catheter: Accurate Measurement of Urinary Output in Critically Ill Patients Urinary Catheter Date of Insertion: 06/26/24 Urinary Catheter Time of Insertion: 09:41 Data 06/27/24 04:00 06/26/24 04:25 Micro: Microbiology 06/21/24 16:50 Blood Culture - Final Blood NO GROWTH AFTER 5 DAYS 06/21/24 16:48 Blood Culture - Final Blood NO GROWTH AFTER 5 DAYS 06/23/24 16:00 Gram Stain - Final Sputum - Endotracheal Tube Aspirate Sputum Culture - Final A&P Assessment and plan (1) DKA (diabetic ketoacidosis): Resolved. He is weaned off insulin drip. On fingersticks every 6 hours, sugars have been well between 130s to 150s. Will hold correction scale insulin for now. (2) Diabetes mellitus with foot ulcer and gangrene: He is s/p left BKA. Wound dressed and no active discharge present. (3) ESRD on peritoneal dialysis: Received tunneled HD catheter by surgery this afternoon. Patient undergoing hemodialysis. Blood pressure still soft. Follow-up nephrology for further recommendations. (4) Hyponatremia: Sodium 128 today. Hyponatremia likely secondary to poor p.o. intake. Will continue with normal saline at 80 mL/h. (5) Leukocytosis: Leukocytosis trending up to 35.36 and now 25.8, . Antibiotics changed to vancomycin and meropenem. Will follow-up cultures. (6) Diarrhea: GI panel still pending. Continue Imodium 2 mg every 6 hours as needed Plan 06/23-- He is sedated and intubated, undergoing hemodialysis currently. Will follow-up chest x-ray in a.m. and plan for weaning off sedation and possible extubation in a.m. depending on labs and hemodynamics. Family aware of plan of care 06/24-- He is more alert and awake, trying to communicate. Hence ABG done and extubated. Doing well postextubation. Leukocytosis improving to 17.5. Postdialysis creatinine 3.2. Peritoneal fluid culture positive for MRSA. Will do isolation and contact precautions. Already on IV vancomycin and meropenem for broad-spectrum coverage for MRSA peritonitis and pneumonitis. Chest x-ray done showed no significant interval difference as compared to admission chest x-ray. But clinically and hemodynamically improving post left BKA and hemodialysis. Blood pressure improved post extubation. Follow-up nephrology for further recommendations. 06/25-- He is off Levophed, extubated doing well on 2.5 L nasal cannula saturating 99%. Required intermittent BiPAP postextubation and overnight. Repeat chest x-ray showed unchanged opacity but distended abdomen. Continue IV vancomycin as per pharmacy recommendations and IV meropenem Will follow-up blood cultures Hemodialysis today WBC count 22.2 slightly elevated from 17.5, sodium 133, creatinine 3.6, hemoglobin 10.2. Follow-up nephrology, orthopedics for further recommendations. PT/OT eval in process 06/26-- Leucocytosis trending up to 24, Will need proper dosing of vancomycin. Looks like getting underdosed on vancomycin. Will continue meropenem for now. Will discuss with ortho about appropriate antibiotics. Continue HD as per nephrology. Will monitor for today in ICU and Transfer to [facility] in am. Although worsening leukocytosis but he seems a septic and comfortable and is hemodynamically and respiratory portillo stable. Will continue to monitor. Will start him on soft diet today. 06/27-- Leukocytosis trending down to 19.7, hemoglobin stable. Undergoing hemodialysis at bedside. Cleared by Dr. Garcia for wound care and continue current antibiotics. Will follow-up with nephrology for duration of antibiotics for MRSA peritonitis. Has been hemodynamically stable, will transfer him to [facility] for further care. Will do PICC line insertion and discontinue left IJ. Repeat chest x-ray in a.m. Attestations Medical Necessity Statement*: He needs continued hospitalization for management of multiple comorbidities including postsurgical care for left BKA, hemodialysis, elevated leukocytosis, , MRSA peritonitis and pneumonitis with improving leukocytosis. Stepdown to [facility] for further care. Anticipating discharge on Saturday. Time Spent in Patient Care: 15minutes Coding Level of Care Code Acute Code for [facility] Fwd Diagnoses DKA (diabetic ketoacidosis) E11.10 Diabetes mellitus with foot ulcer and gangrene E11.621; E11.52; L97.509 ESRD on peritoneal dialysis N18.6; Z99.2 Hyponatremia E87.1 Leukocytosis D72.829 Diarrhea R19.7 Time Spent (min) 15
--- NOTE | 2024-06-27 16:35 | XRR_ITS ---
PROCEDURE INFORMATION: Exam: XR Chest Exam date and time: 06/27/2024 5:08 PM Age: 58 years old Clinical indication: Device placement; Prior surgery; Surgery date: 6+ months; Surgery type: Lt dialysis cath; Patient HX: Picc placement TECHNIQUE: Imaging protocol: Radiologic exam of the chest. Views: 1 view. COMPARISON: CR XR chest 1V portable [id number] 06/25/2024 8:35 AM FINDINGS: Lungs: No focal consolidation. Low lung volumes with bibasilar atelectasis. Pleural spaces: No evidence of pneumothorax. No gross evidence of pleural effusion. Small pleural effusions would be difficult to exclude. Heart/Mediastinum: Interval extubation. Right IJ central venous catheter with tip in the region of the cavoatrial junction. Left-sided dialysis catheter in place with tip in the region of the cavoatrial junction. New right-sided PICC line in place with tip in the region of the distal SVC. Markedly distended stomach versus bowel loop in the upper abdomen. Bones/joints: No evidence of acute osseous abnormality. XR/XR chest 1V portable [id number] IMPRESSION: 1. Right-sided PICC line in place with tip in the region of the distal SVC.
[2024-06-27] MEDS: vancomycin 1,000 MG in sodium chloride 0.9% 250 ML 250 MG IV (18:06)
[2024-06-27] MEDS: insulin lispro 100 unit/1 mL SUBCUT (18:06)
[2024-06-27] MEDS: sodium bicarbonate 650 mg Tablet 1300 MG PO (18:06)
[2024-06-27 19:44] LABS: Glucose Point of Care 206 mg/dL (70-110)
[2024-06-27 20:20] LABS: Glucose Point of Care 149 mg/dL (70-110)
[2024-06-27] MEDS: atorvastatin 40 mg Tablet PO (20:56)
[2024-06-27] MEDS: sevelamer 800 mg Tablet PO (20:56)
[2024-06-27] MEDS: acetaminophen 325 mg Tablet 650 MG PO (21:54)
[2024-06-27] MEDS: pantoprazole 40 mg SDV IVP (21:55)
--- NOTE | 2024-06-27 22:00 | PC.NURSE ---
Physician Communication Upon assessment of patient, patient has a weak moist cough, edema in both upper extremities and right leg, as well as diminished and coarse lung sounds. Patient's blood sugar 149 with D5 1/2NS administering at 80 ml/hr. Dr. Burroughs contacted and order received to stop maintenance fluids. Additionally, report from previous nurse stated intent to remove central line when PICC placed properly. PICC placement verified by xray. Dr. Burroughs consulted and verification received to remove central line.
[2024-06-27] MEDS: ondansetron 2 mg/ML SDV 2 mL 4 MG IVP (22:50)
[2024-06-28] VITALS (69 sets, daily range): BP systolic 87–137; BP diastolic 42–85; PULSE 92–109; RESP 12–28; TEMP 36.5–36.6; O2SAT 97–100; BMI 34.4
[2024-06-28 00:03] LABS: Glucose Point of Care 83 mg/dL (70-110)
[2024-06-28 01:49] LABS: Glucose Point of Care 92 mg/dL (70-110)
[2024-06-28] MEDS: HYDROmorphone 1 mg/mL INJ 1 mL 0.3 MG IVP ×3 (01:52→18:28)
[2024-06-28 03:51] LABS: Basophils % 0.1 %; Eosinophils # 0.2 10^3/uL (0.0-0.8); Eosinophils % 1.2 %; Hematocrit 29.5 % (37-53); Lymphocytes # 0.5 10^3/uL (0.8-4.8); Lymphocytes % 2.7 %; Mean Corpuscular HGB Conc 30.8 g/dL (30-55); Mean Corpuscular Hemoglobin 27.9 pg (27-33); Mean Corpuscular Volume 90.5 fl (82-101); Mean Platelet Volume 11.8 fL (7.4-10.4); Monocytes # 1.2 10^3/uL (0.2-0.9); Neutrophils # 15.29 10^3/uL (1.8-7.7); Neutrophils % 86.8 %; Nucleated Red Blood Cells % 0 %; Platelet Count 144 10^3/cmm (157-399); Red Blood Count 3.26 10^6/uL (3.85-5.65); Red Cell Distribution Width 16.2 % (12.1-15.1); White Blood Count 17.63 10^3/uL (3.29-11.43)
[2024-06-28 04:09] LABS: Anion Gap 9.8 (5-19); Blood Urea Nitrogen 21 mg/dL (6-20); Calcium 6.8 mg/dL (8.5-10.5); Carbon Dioxide 25 mmol/L (22-29); Chloride 102 mmol/L (98-107); Creatinine Clr Calc Pharmacy 38.0333; Glomerular Filtration Rate 24.6 mL/min (90-130); Glucose 134 mg/dL (65-115); Osmolality Calculated 281 mOsm/kg (285-295); Potassium 3.8 mmol/L (3.5-5.1); Sodium 133 mmol/L (136-145); Vancomycin Random 30.4 ug/mL (20.0-40.0)
[2024-06-28 06:37] LABS: Glucose Point of Care 127 mg/dL (70-110)
[2024-06-28] MEDS: aspirin 81 mg Chew Tablet PO (06:55)
--- NOTE | 2024-06-28 07:00 | XRR_ITS ---
PROCEDURE INFORMATION: Exam: XR Chest Exam date and time: 06/28/2024 10:04 AM Age: 58 years old Clinical indication: Other: Pneumonitis TECHNIQUE: Imaging protocol: Radiologic exam of the chest. Views: 1 view. COMPARISON: CR (CHEST, ) 06/27/2024 5:08 PM FINDINGS: Tubes, catheters and devices: Dual-lumen catheter seen on the left with tips overlying the SVC. PICC line is seen on the right with its tip overlying the SVC. Lungs: There are low lung volumes with linear atelectasis or scarring at the lung bases. No focal consolidation is appreciated. Pleural spaces: Unremarkable. No pleural effusion. No pneumothorax. Heart/Mediastinum: The heart is enlarged. Bones/joints: Unremarkable. XR/XR chest 1V portable [id number] IMPRESSION: 1. Cardiomegaly. 2. Low lung volumes with linear atelectasis and/or scarring at the lung bases.
[2024-06-28 08:57] LABS: Glucose Point of Care 135 mg/dL (70-110)
[2024-06-28] MEDS: acetaminophen 325 mg Tablet 650 MG PO (09:15)
[2024-06-28] MEDS: sevelamer 800 mg Tablet PO ×2 (09:15→17:40)
[2024-06-28] MEDS: sodium bicarbonate 650 mg Tablet 1300 MG PO ×2 (09:15→17:40)
[2024-06-28] MEDS: meropenem 1,000 MG in sodium chloride 0.9% (plus) 50 ML 100 MG IV ×2 (09:16→21:18)
[2024-06-28] MEDS: polyethylene glycol 3350 Pkt 17 gm PO (09:17)
[2024-06-28] MEDS: ondansetron 2 mg/ML SDV 2 mL 4 MG IVP (09:17)
[2024-06-28] MEDS: nystatin powder 15 gm Btl 1 APPLIC TOPICAL ×2 (09:18→17:40)
[2024-06-28 13:35] LABS: Glucose Point of Care 135 mg/dL (70-110)
--- NOTE | 2024-06-28 14:25 | PC.NURSE ---
Patient and belongings moved to CSU 106, report to SALOMÓN Bueno.
--- NOTE | 2024-06-28 14:40 | PC.NURSE ---
received from icu via bed,into room 106 at 1410.pt is alert and oriented x 3.st w/bbb on monitor.denies pain.very weak.oriented to room environment.instructed to notify staff for any pain,sob,dizziness...or for any concerns at all.pt verb understanding of instructions.
--- NOTE | 2024-06-28 15:14 | PM.PN ---
Subjective Subjective: no new c/o Medications: Reviewed: Yes Vitals/I&O/Wt Last Vital Signs Temp 97.9 F 06/28/24 10:30 Pulse 108 H 06/28/24 14:30 Resp 23 H 06/28/24 14:30 BP 137/80 06/28/24 14:30 Pulse Ox 100 06/28/24 14:30 O2 Del Method Nasal Cannula 06/28/24 14:30 O2 Flow Rate 2 06/28/24 14:30 FiO2 45 06/27/24 21:45 06/28/24 06/28/24 06/28/24 06:59 14:59 22:59 Intake Total 170 / 170 Output Total 50 / 50 Balance 120 / 120 Weight last 48 hrs Weight 106 kg Weight 114 kg Weight 110 kg Physical Exam Narrative: Patient is awake alert, no distress HEENT S1-S2 regular rate and rhythm per report Lungs clear per report s/p left BKA Urinary Catheter Management: Reyes: Cath Placed During This Visit: yes Reason for Continuing Indwelling Catheter: Accurate Measurement of Urinary Output in Critically Ill Patients Urinary Catheter Date of Insertion: 06/26/24 Urinary Catheter Time of Insertion: 09:41 Data 06/28/24 03:42 06/28/24 03:42 Micro: Microbiology 06/22/24 04:00 E. coli Shiga-like Toxin (PCR) - Final Stool Salmonella/Shigella Culture - Final Campylobacter (PCR) - Final A&P Assessment and plan (1) ESRD (end stage renal disease): 1. End-stage renal disease: been On peritoneal dialysis, -Patient unable to do PD effectively at home due to multiple comorbidities and had been missing many PD sessions - switched to HD : s/p removal of PD catheter and PC placed , HD per [facility] schedule 2. Hyperkalemia: dialysis as above, on low potassium diet, improved 3. Anemia: Will order epogen 4. Diabetes 5. History of hypertension 6. Left heel ulcer with osteomyelitis, s/p left BKA 7. Hyponatremia: Likely hypervolemic, monitor 8. metabolic acidosis, in the setting of sufficiency and probable lactic acidosis, should improve with HD 9. resp failure : Extubated Patient evaluated and audiovisual cart. Time spent 40 minutes. Attestations Medical Necessity Statement*: per candida Coding Level of Care Code Acute Code for Chg Fwd Diagnoses ESRD (end stage renal disease) N18.6
[2024-06-28 16:49] LABS: Glucose Point of Care 124 mg/dL (70-110)
[2024-06-28 20:45] LABS: Glucose Point of Care 139 mg/dL (70-110)
[2024-06-28] MEDS: pantoprazole 40 mg SDV IVP (21:19)
[2024-06-28] MEDS: atorvastatin 40 mg Tablet PO (21:19)
[2024-06-29] VITALS (13 sets, daily range): BP systolic 116–141; BP diastolic 61–82; PULSE 99–107; RESP 15–23; TEMP 36.4–36.8; O2SAT 97–100
[2024-06-29 01:00] LABS: Glucose Point of Care 126 mg/dL (70-110)
[2024-06-29] MEDS: HYDROmorphone 1 mg/mL INJ 1 mL 0.3 MG IVP ×4 (02:03→17:44)
[2024-06-29 03:53] LABS: Basophils % 0.2 %; Eosinophils # 0.2 10^3/uL (0.0-0.8); Eosinophils % 1.1 %; Hematocrit 29.5 % (37-53); Lymphocytes # 0.5 10^3/uL (0.8-4.8); Lymphocytes % 3.2 %; Mean Corpuscular HGB Conc 30.8 g/dL (30-55); Mean Corpuscular Hemoglobin 28.3 pg (27-33); Mean Corpuscular Volume 91.6 fl (82-101); Mean Platelet Volume 11.8 fL (7.4-10.4); Monocytes % 6.1 %; Neutrophils # 14.67 10^3/uL (1.8-7.7); Neutrophils % 86.1 %; Nucleated Red Blood Cells % 0 %; Platelet Count 151 10^3/cmm (157-399); Red Blood Count 3.22 10^6/uL (3.85-5.65); White Blood Count 17.04 10^3/uL (3.29-11.43)
[2024-06-29 05:13] LABS: Glucose Point of Care 110 mg/dL (70-110)
[2024-06-29] MEDS: aspirin 81 mg Chew Tablet PO (05:58)
[2024-06-29] MEDS: sevelamer 800 mg Tablet PO ×3 (05:58→17:47)
--- NOTE | 2024-06-29 07:21 | P.PN_ITS ---
Subjective 2 Subjective: The patient was seen and examined. The patient is weak. Has some confusion. Has a new permacath. Status post recent left BKA. Still has Reyes. Has some shortness of breath. Medications: Reviewed: Yes Medication Review Details: Current Medications Acetaminophen (Acetaminophen 325 Mg Tablet) 650 mg PO Q6H PRN PRN Reason: Mild/Mod Pain Or Temp >/= 101 Last Admin: 06/28/24 09:15 Dose: 650 mg Aspirin (Aspirin 81 Mg Chew Tablet) 81 mg PO QAM KELSEY Last Admin: 06/29/24 05:58 Dose: 81 mg Atorvastatin Calcium (Atorvastatin 40 Mg Tablet) 40 mg PO BEDTIME KELSEY Last Admin: 06/28/24 21:19 Dose: 40 mg Glucagon (Glucagon 1 Mg/Ml Kit 1 Ml) 1 mg IM ONCE PRN; Protocol PRN Reason: Adult Acute Hypoglycemia Nursing Prot. Hydromorphone HCl (Hydromorphone 1 Mg/Ml Inj 1 Ml) 0.3 mg IVP Q6H PRN PRN Reason: MODERATE TO SEVERE PAIN Last Admin: 06/29/24 02:03 Dose: 0.3 mg Meropenem 1,000 mg/ Sodium (Chloride) 50 mls @ 100 mls/hr IV Q12H KELSEY; Protocol Last Infusion: 06/28/24 21:48 Dose: Infused Vancomycin HCl 1,000 mg/ (Sodium Chloride) 250 mls @ 250 mls/hr IV DIALYSIS [facility] Last Admin: 06/28/24 15:27 Dose: Not Given Sodium Chloride (Sodium Chloride 0.9%) 1,000 mls @ 0 mls/hr IV .Q0M PRN PRN Reason: hypotension or symptomatic Albumin Human (Albumin) 12.5 gm in 50 mls @ 60 mls/hr IV PRN PRN PRN Reason: Hypotension and/or symptomatic Insulin Human Lispro (Insulin Lispro 100 Unit/1 Ml) 0 unit SUBCUT Q4H [facility]; Protocol Last Admin: 06/29/24 07:20 Dose: Not Given Lanolin (Lanolin Oint 7 Gm) 1 applic TOPICAL PRN PRN PRN Reason: DRYNESS Nystatin (Nystatin Powder 15 Gm Btl) 1 applic TOPICAL BID KEL[facility]Y Last Admin: 06/28/24 17:40 Dose: 1 applic Ondansetron HCl (Ondansetron 2 Mg/Ml Sdv 2 Ml) 4 mg IVP Q8H PRN PRN Reason: vomiting, or N/V if npo Last Admin: 06/28/24 09:17 Dose: 4 mg Pantoprazole Sodium (Pantoprazole 40 Mg Sdv) 40 mg IVP Q24H [facility] Last Admin: 06/28/24 21:19 Dose: 40 mg Polyethylene Glycol (Polyethylene Glycol 3350 Pkt 17 Gm) 17 gm PO DAILY [facility] Last Admin: 06/28/24 09:17 Dose: 17 gm Sevelamer Carbonate (Sevelamer 800 Mg Tablet) 800 mg PO AC [facility] Last Admin: 06/29/24 05:58 Dose: 800 mg Sodium Bicarbonate (Sodium Bicarbonate 650 Mg Tablet) 1,300 mg PO BID [facility] Last Admin: 06/28/24 17:40 Dose: 1,300 mg Vitals/I&O/Wt Last Vital Signs Temp 97.7 F 06/29/24 04:00 Pulse 103 H 06/29/24 06:00 Resp 23 H 06/29/24 04:00 BP 122/61 06/29/24 04:00 Pulse Ox 99 06/29/24 04:00 O2 Del Method Nasal Cannula 06/29/24 04:00 O2 Flow Rate 2 06/28/24 14:30 FiO2 45 06/27/24 21:45 06/28/24 06/29/24 06/29/24 22:59 06:59 14:59 Intake Total 50 / 220 Output Total 50 / 100 50 / 150 Balance 0 / 120 -50 / 70 Weight last 48 hrs Weight 118.5 kg Weight 106 kg Weight 114 kg Physical Exam 2 Narrative: Patient appears older than stated age. In bed no respiratory distress. Vital signs noted. HEENT normocephalic atraumatic. Neck is supple Lungs dull bases. Heart regular positive systolic murmur. Abdomen is soft positive bowel sound. Extremities left BKA. Right leg no edema. Neuro awake alert oriented x 2. Dialysis access left anterior chest wall permacath. Urinary Catheter Management: Reyes: Cath Placed During This Visit: yes Reason for Continuing Indwelling Catheter: Accurate Measurement of Urinary Output in Critically Ill Patients Urinary Catheter Date of Insertion: 06/26/24 Urinary Catheter Time of Insertion: 09:41 Data 06/29/24 03:40 06/28/24 03:42 Other data: 58-year-old gentleman end-stage renal disease was recently transferred from peritoneal dialysis to hemodialysis. The patient was not able to do his PD appropriately. His PD catheter has been removed and his abdomen is healing well. The patient has a permacath. Has plan to be on a Saturday schedule for dialysis. Patient with dialysis today or tomorrow based on nurses schedule. Diabetic control. Patient still has a leukocytosis Anemia we will send iron studies. Will DC oral bicarbonate. Peripheral vascular disease from diabetes. Hypocalcemia check vitamin D and PTH levels. A&P Assessment and plan (1) ESRD (end stage renal disease): Plan See above Attestations 2 Medical Necessity Statement*: ESRD, PVD, leukocytosis Time Spent in Patient Care: 16 - 35 minutes (>than 50% of time sp ent in counselling and/or direct pt care on unit) . Coding Level of Care Code Acute Code for Chg Fwd Diagnoses ESRD (end stage renal disease) N18.6
[2024-06-29] MEDS: nystatin powder 15 gm Btl 1 APPLIC TOPICAL (07:54)
[2024-06-29] MEDS: polyethylene glycol 3350 Pkt 17 gm PO (07:54)
[2024-06-29] MEDS: meropenem 1,000 MG in sodium chloride 0.9% (plus) 50 ML 100 MG IV ×2 (07:54→21:24)
[2024-06-29 08:08] LABS: Iron 19 ug/dL (59-158); Percent Saturation 31.6 % (20-50); Total Iron Binding Capacity 60 mcg/dl; Unsaturated Iron Binding 41 ug/dL (112-347)
[2024-06-29 08:09] LABS: Calcium 7.2 mg/dL (8.5-10.5)
[2024-06-29 08:14] LABS: Parathyroid Hormone 65.3 pg/mL (15-65)
[2024-06-29 08:22] LABS: Ferritin 1764 ng/mL (30-400)
--- NOTE | 2024-06-29 11:26 | PC.SOCIAL ---
IMM Updated Updated pt on IMM. No questions voiced. Provided pt a copy. Initialed, dated, & timed copy in chart.
--- NOTE | 2024-06-29 13:45 | P.PN_ITS ---
Subjective 2 Subjective: 06/28/24 no acute overnight events noted. Seen him at bedside this morning he is doing well. Denies any new complaints. Medications: Reviewed: Yes Vitals/I&O/Wt Last Vital Signs Temp 98.3 F 06/29/24 11:29 Pulse 107 H 06/29/24 11:29 Resp 23 H 06/29/24 12:01 BP 125/63 06/29/24 11:29 Pulse Ox 97 06/29/24 12:01 O2 Del Method Nasal Cannula 06/29/24 11:29 O2 Flow Rate 2 06/29/24 11:29 FiO2 45 06/27/24 21:45 06/28/24 06/29/24 06/29/24 22:59 06:59 14:59 Intake Total 50 / 220 50 / 50 Output Total 50 / 100 50 / 150 Balance 0 / 120 -50 / 70 50 / 50 Weight last 48 hrs Weight 118.5 kg Weight 106 kg Physical Exam 2 Narrative: He is alert awake oriented x 3, not in acute distress Chest bilateral scattered rhonchi present, bilateral decreased air entry Cardiovascular normal heart sounds Abdomen soft nontender nondistended normal bowel sounds Extremities right lower extremity 1+ pitting edema present, left BKA dressing present no discharge or bleeding seen. Urinary Catheter Management: Reyes: Cath Placed During This Visit: yes Reason for Continuing Indwelling Catheter: Accurate Measurement of Urinary Output in Critically Ill Patients Urinary Catheter Date of Insertion: 06/26/24 Urinary Catheter Time of Insertion: 09:41 Data 06/29/24 03:40 06/28/24 03:42 A&P Assessment and plan (1) DKA (diabetic ketoacidosis): Resolved. He is weaned off insulin drip. On fingersticks every 6 hours, sugars have been well between 130s to 150s. Will hold correction scale insulin for now. (2) Diabetes mellitus with foot ulcer and gangrene: He is s/p left BKA. Wound dressed and no active discharge present. (3) ESRD on peritoneal dialysis: Received tunneled HD catheter by surgery this afternoon. Patient undergoing hemodialysis. Blood pressure still soft. Follow-up nephrology for further recommendations. (4) Hyponatremia: Sodium 128 today. Hyponatremia likely secondary to poor p.o. intake. Will continue with normal saline at 80 mL/h. (5) Leukocytosis: Leukocytosis trending up to 35.36 and now 25.8, . Antibiotics changed to vancomycin and meropenem. Will follow-up cultures. (6) Diarrhea: GI panel still pending. Continue Imodium 2 mg every 6 hours as needed Plan 06/23-- He is sedated and intubated, undergoing hemodialysis currently. Will follow-up chest x-ray in a.m. and plan for weaning off sedation and possible extubation in a.m. depending on labs and hemodynamics. Family aware of plan of care 06/24-- He is more alert and awake, trying to communicate. Hence ABG done and extubated. Doing well postextubation. Leukocytosis improving to 17.5. Postdialysis creatinine 3.2. Peritoneal fluid culture positive for MRSA. Will do isolation and contact precautions. Already on IV vancomycin and meropenem for broad-spectrum coverage for MRSA peritonitis and pneumonitis. Chest x-ray done showed no significant interval difference as compared to admission chest x-ray. But clinically and hemodynamically improving post left BKA and hemodialysis. Blood pressure improved post extubation. Follow-up nephrology for further recommendations. 06/25-- He is off Levophed, extubated doing well on 2.5 L nasal cannula saturating 99%. Required intermittent BiPAP postextubation and overnight. Repeat chest x-ray showed unchanged opacity but distended abdomen. Continue IV vancomycin as per pharmacy recommendations and IV meropenem Will follow-up blood cultures Hemodialysis today WBC count 22.2 slightly elevated from 17.5, sodium 133, creatinine 3.6, hemoglobin 10.2. Follow-up nephrology, orthopedics for further recommendations. PT/OT eval in process 06/26-- Leucocytosis trending up to 24, Will need proper dosing of vancomycin. Looks like getting underdosed on vancomycin. Will continue meropenem for now. Will discuss with ortho about appropriate antibiotics. Continue HD as per nephrology. Will monitor for today in ICU and Transfer to CSU in am. Although worsening leukocytosis but he seems a septic and comfortable and is hemodynamically and respiratory portillo stable. Will continue to monitor. Will start him on soft diet today. 06/27-- Leukocytosis trending down to 19.7, hemoglobin stable. Undergoing hemodialysis at bedside. Cleared by Dr. Garcia for wound care and continue current antibiotics. Will follow-up with nephrology for duration of antibiotics for MRSA peritonitis. Has been hemodynamically stable, will transfer him to CSU for further care. Will do PICC line insertion and discontinue left IJ. Repeat chest x-ray in a.m. 06/28--leukocytosis still trending down to 17.6. He is hemodynamically stable, afebrile, tolerating diet. Will transfer him to CSU for further monitoring and care. Attestations 2 Medical Necessity Statement*: He needs continued hospitalization for management of multiple comorbidities including postsurgical care for left BKA, hemodialysis, elevated leukocytosis, , MRSA peritonitis and pneumonitis with improving leukocytosis. Stepdown to CSU for further care. Anticipating discharge on Saturday. Time Spent in Patient Care: 15minutes Coding Level of Care Code Acute Code for [facility] Fwd Diagnoses DKA (diabetic ketoacidosis) E11.10 Diabetes mellitus with foot ulcer and gangrene E11.621; E11.52; L97.509 ESRD on peritoneal dialysis N18.6; Z99.2 Hyponatremia E87.1 Leukocytosis D72.829 Diarrhea R19.7 Time Spent (min) 15
--- NOTE | 2024-06-29 13:51 | P.PN_ITS ---
Subjective 2 Subjective: No acute overnight events noted. Seen him at bedside this morning, he is doing well, eating well. Denies any new complaints. Medications: Reviewed: Yes Vitals/I&O/Wt Last Vital Signs Temp 98.3 F 06/29/24 11:29 Pulse 107 H 06/29/24 11:29 Resp 23 H 06/29/24 12:01 BP 125/63 06/29/24 11:29 Pulse Ox 97 06/29/24 12:01 O2 Del Method Nasal Cannula 06/29/24 11:29 O2 Flow Rate 2 06/29/24 11:29 FiO2 45 06/27/24 21:45 06/28/24 06/29/24 06/29/24 22:59 06:59 14:59 Intake Total 50 / 220 50 / 50 Output Total 50 / 100 50 / 150 Balance 0 / 120 -50 / 70 50 / 50 Weight last 48 hrs Weight 118.5 kg Weight 106 kg Physical Exam 2 Narrative: He is alert awake oriented x 3, not in acute distress Chest clear to auscultation bilaterally Cardiovascular normal heart sounds Abdomen soft nontender nondistended normal bowel sounds Extremities right lower extremity 1+ pitting edema present, left BKA dressing present no discharge or bleeding seen. Urinary Catheter Management: Reyes: Cath Placed During This Visit: yes Reason for Continuing Indwelling Catheter: Accurate Measurement of Urinary Output in Critically Ill Patients Urinary Catheter Date of Insertion: 06/26/24 Urinary Catheter Time of Insertion: 09:41 Data 06/29/24 03:40 06/28/24 03:42 A&P Assessment and plan (1) DKA (diabetic ketoacidosis): Resolved. He is weaned off insulin drip. On fingersticks every 6 hours, sugars have been well between 130s to 150s. Will hold correction scale insulin for now. (2) Diabetes mellitus with foot ulcer and gangrene: He is s/p left BKA. Wound dressed and no active discharge present. (3) ESRD on peritoneal dialysis: Received tunneled HD catheter by surgery this afternoon. Patient undergoing hemodialysis. Blood pressure still soft. Follow-up nephrology for further recommendations. (4) Hyponatremia: Sodium 128 today. Hyponatremia likely secondary to poor p.o. intake. Will continue with normal saline at 80 mL/h. (5) Leukocytosis: Leukocytosis trending up to 35.36 and now 25.8, . Antibiotics changed to vancomycin and meropenem. Will follow-up cultures. (6) Diarrhea: GI panel still pending. Continue Imodium 2 mg every 6 hours as needed Plan 06/23-- He is sedated and intubated, undergoing hemodialysis currently. Will follow-up chest x-ray in a.m. and plan for weaning off sedation and possible extubation in a.m. depending on labs and hemodynamics. Family aware of plan of care 06/24-- He is more alert and awake, trying to communicate. Hence ABG done and extubated. Doing well postextubation. Leukocytosis improving to 17.5. Postdialysis creatinine 3.2. Peritoneal fluid culture positive for MRSA. Will do isolation and contact precautions. Already on IV vancomycin and meropenem for broad-spectrum coverage for MRSA peritonitis and pneumonitis. Chest x-ray done showed no significant interval difference as compared to admission chest x-ray. But clinically and hemodynamically improving post left BKA and hemodialysis. Blood pressure improved post extubation. Follow-up nephrology for further recommendations. 06/25-- He is off Levophed, extubated doing well on 2.5 L nasal cannula saturating 99%. Required intermittent BiPAP postextubation and overnight. Repeat chest x-ray showed unchanged opacity but distended abdomen. Continue IV vancomycin as per pharmacy recommendations and IV meropenem Will follow-up blood cultures Hemodialysis today WBC count 22.2 slightly elevated from 17.5, sodium 133, creatinine 3.6, hemoglobin 10.2. Follow-up nephrology, orthopedics for further recommendations. PT/OT eval in process 06/26-- Leucocytosis trending up to 24, Will need proper dosing of vancomycin. Looks like getting underdosed on vancomycin. Will continue meropenem for now. Will discuss with ortho about appropriate antibiotics. Continue HD as per nephrology. Will monitor for today in ICU and Transfer to CSU in am. Although worsening leukocytosis but he seems a septic and comfortable and is hemodynamically and respiratory portillo stable. Will continue to monitor. Will start him on soft diet today. 06/27-- Leukocytosis trending down to 19.7, hemoglobin stable. Undergoing hemodialysis at bedside. Cleared by Dr. Garcia for wound care and continue current antibiotics. Will follow-up with nephrology for duration of antibiotics for MRSA peritonitis. Has been hemodynamically stable, will transfer him to CSU for further care. Will do PICC line insertion and discontinue left IJ. Repeat chest x-ray in a.m. 06/28--leukocytosis still trending down to 17.6. He is hemodynamically stable, afebrile, tolerating diet. Will transfer him to CSU for further monitoring and care. 06/29--leukocytosis trending down to 17.0, hemoglobin stable. He is afebrile, will continue IV vancomycin and meropenem for 1 more day. Discussed with nephrology about MRSA and peritoneal fluid, patient to get IV vancomycin with dialysis for 2 weeks. Will follow-up case management for discharge planning. Anticipating discharge in a.m. Attestations 2 Medical Necessity Statement*: Follow-up case management for discharge planning. Anticipating discharge in a.m. Time Spent in Patient Care: 15 minutes Coding Level of Care Code Acute Code for Chg Fwd Diagnoses DKA (diabetic ketoacidosis) E11.10 Diabetes mellitus with foot ulcer and gangrene E11.621; E11.52; L97.509 ESRD on peritoneal dialysis N18.6; Z99.2 Hyponatremia E87.1 Leukocytosis D72.829 Diarrhea R19.7 Time Spent (min) 15
[2024-06-29 17:24] LABS: Glucose Point of Care 131 mg/dL (70-110)
[2024-06-29 17:24] LABS: Glucose Point of Care 113 mg/dL (70-110)
[2024-06-29] MEDS: pantoprazole 40 mg SDV IVP (21:25)
[2024-06-29] MEDS: atorvastatin 40 mg Tablet PO (21:25)
[2024-06-29 21:32] LABS: Glucose Point of Care 130 mg/dL (70-110)
[2024-06-29] MEDS: ondansetron 2 mg/ML SDV 2 mL 4 MG IVP (22:52)
[2024-06-30] VITALS (14 sets, daily range): BP systolic 114–131; BP diastolic 63–74; PULSE 98–106; RESP 16–23; TEMP 36.5–36.8; O2SAT 91–100
[2024-06-30] MEDS: HYDROmorphone 1 mg/mL INJ 1 mL 0.3 MG IVP ×4 (00:13→21:19)
[2024-06-30 01:28] LABS: Glucose Point of Care 140 mg/dL (70-110)
--- NOTE | 2024-06-30 02:14 | PC.NURSE ---
pt had q4 accuchecks. pt hasnt required any insulin. physician oked with putting accuchecks back to [facility]
[2024-06-30 04:21] LABS: Basophils % 0.2 %; Eosinophils # 0.2 10^3/uL (0.0-0.8); Eosinophils % 1.3 %; Hematocrit 29.2 % (37-53); Lymphocytes # 0.7 10^3/uL (0.8-4.8); Lymphocytes % 4.4 %; Mean Corpuscular HGB Conc 30.1 g/dL (30-55); Mean Corpuscular Hemoglobin 28.3 pg (27-33); Mean Corpuscular Volume 93.9 fl (82-101); Mean Platelet Volume 11.3 fL (7.4-10.4); Monocytes # 1.1 10^3/uL (0.2-0.9); Monocytes % 7.1 %; Neutrophils # 12.91 10^3/uL (1.8-7.7); Neutrophils % 82.5 %; Nucleated Red Blood Cells % 0 %; Platelet Count 166 10^3/cmm (157-399); Red Blood Count 3.11 10^6/uL (3.85-5.65); Red Cell Distribution Width 15.8 % (12.1-15.1); White Blood Count 15.63 10^3/uL (3.29-11.43)
[2024-06-30 04:31] LABS: Vancomycin Trough 24.9 ug/mL (10-15)
[2024-06-30 04:34] LABS: Alanine Aminotransferase < 5 U/L (0-41); Albumin Level 1.9 g/dL (3.5-5.2); Alkaline Phosphatase 145 U/L (40-130); Anion Gap 16.5 (5-19); Aspartate Amino Transferase 9 U/L (0-40); Blood Urea Nitrogen 31 mg/dL (6-20); Calcium 7.1 mg/dL (8.5-10.5); Carbon Dioxide 24 mmol/L (22-29); Chloride 102 mmol/L (98-107); Creatinine Clr Calc Pharmacy 30.8206; Globulin 2.5 g/dL (1.3-4.6); Glomerular Filtration Rate 18.8 mL/min (90-130); Glucose 144 mg/dL (65-115); Magnesium 1.9 mg/dL (1.7-2.3); Osmolality Calculated 295 mOsm/kg (285-295); Potassium 4.5 mmol/L (3.5-5.1); Sodium 138 mmol/L (136-145); Total Bilirubin 0.3 mg/dL (0.15-1.2); Total Protein 4.4 g/dL (6.6-8.7)
[2024-06-30] MEDS: aspirin 81 mg Chew Tablet PO (06:10)
[2024-06-30 06:13] LABS: Glucose Point of Care 152 mg/dL (70-110)
--- NOTE | 2024-06-30 07:19 | PM.PN ---
Subjective Subjective: weak, lethargic, nausea. no lindo. poor appetite. s/p bka. no cp. + sob Medications: Reviewed: Yes Medication Review Details: Current Medications Acetaminophen (Acetaminophen 325 Mg Tablet) 650 mg PO Q6H PRN PRN Reason: Mild/Mod Pain Or Temp >/= 101 Last Admin: 06/28/24 09:15 Dose: 650 mg Aspirin (Aspirin 81 Mg Chew Tablet) 81 mg PO QAM KELSEY Last Admin: 06/30/24 06:10 Dose: 81 mg Atorvastatin Calcium (Atorvastatin 40 Mg Tablet) 40 mg PO BEDTIME KELSEY Last Admin: 06/29/24 21:25 Dose: 40 mg Glucagon (Glucagon 1 Mg/Ml Kit 1 Ml) 1 mg IM ONCE PRN; Protocol PRN Reason: Adult Acute Hypoglycemia Nursing Prot. Hydromorphone HCl (Hydromorphone 1 Mg/Ml Inj 1 Ml) 0.3 mg IVP Q6H PRN PRN Reason: MODERATE TO SEVERE PAIN Last Admin: 06/30/24 06:07 Dose: 0.3 mg Meropenem 1,000 mg/ Sodium (Chloride) 50 mls @ 100 mls/hr IV Q12H [facility]Y; Protocol Last Infusion: 06/29/24 21:54 Dose: Infused Sodium Chloride (Sodium Chloride 0.9%) 1,000 mls @ 0 mls/hr IV .Q0M PRN PRN Reason: hypotension or symptomatic Albumin Human (Albumin) 12.5 gm in 50 mls @ 60 mls/hr IV PRN PRN PRN Reason: Hypotension and/or symptomatic Insulin Human Lispro (Insulin Lispro 100 Unit/1 Ml) 0 unit SUBCUT WM&BEDTIME KELSEY; Protocol Lanolin (Lanolin Oint 7 Gm) 1 applic TOPICAL PRN PRN PRN Reason: DRYNESS Nystatin (Nystatin Powder 15 Gm Btl) 1 applic TOPICAL BID KELSEY Last Admin: 06/29/24 18:11 Dose: Not Given Ondansetron HCl (Ondansetron 2 Mg/Ml Sdv 2 Ml) 4 mg IVP Q8H PRN PRN Reason: vomiting, or N/V if npo Last Admin: 06/29/24 22:52 Dose: 4 mg Pantoprazole Sodium (Pantoprazole 40 Mg Sdv) 40 mg IVP Q24H [facility]EL[facility]Y Last Admin: 06/29/24 21:25 Dose: 40 mg Polyethylene Glycol (Polyethylene Glycol 3350 Pkt 17 Gm) 17 gm PO DAILY [facility] Last Admin: 06/29/24 07:54 Dose: 17 gm Sevelamer Carbonate (Sevelamer 800 Mg Tablet) 800 mg PO AC [facility] Last Admin: 06/29/24 17:47 Dose: 800 mg Vancomycin HCl (Vancomycin 1,000 Mg Sdv (Pharmacy Mix)) 0 mg XX PRN PRN PRN Reason: Pharmacy to Dose Vitals/I&O/Wt Last Vital Signs Temp 97.9 F 06/30/24 04:00 Pulse 102 H 06/30/24 05:52 Resp 21 H 06/30/24 06:07 BP 127/71 06/30/24 04:00 Pulse Ox 100 06/30/24 06:07 O2 Del Method Nasal Cannula 06/30/24 04:00 O2 Flow Rate 1 06/29/24 16:00 FiO2 45 06/27/24 21:45 06/29/24 06/30/24 06/30/24 22:59 06:59 14:59 Intake Total 50 / 100 Output Total 100 / 100 100 / 200 Balance -50 / 0 -100 / -100 Weight last 48 hrs Weight 113.988 kg Weight 118.5 kg Physical Exam Narrative: Patient appears older than stated age. In bed uncomfortable, ill appearing Vital signs noted. HEENT normocephalic atraumatic. Neck is supple Lungs dull bases. Heart regular, tachycardic, positive systolic murmur. Abdomen is soft positive bowel sound, ++ diffuse tenderness Extremities left BKA. Right leg no edema. Neuro awake alert oriented x 2. Dialysis access left anterior chest wall permacath. Urinary Catheter Management: Reyes: Cath Placed During This Visit: yes Reason for Continuing Indwelling Catheter: Accurate Measurement of Urinary Output in Critically Ill Patients Urinary Catheter Date of Insertion: 06/26/24 Urinary Catheter Time of Insertion: 09:41 Data 06/30/24 03:57 06/30/24 03:57 A&P Assessment and plan (1) ESRD (end stage renal disease): 58-year-old gentleman end-stage renal disease was recently transferred from peritoneal dialysis to hemodialysis. The patient was not able to do his PD appropriately. His PD catheter has been removed and his abdomen is healing well. The patient has a permacath. Has plan to be on a Saturday schedule for dialysis. Patient with dialysis today and vancomycin abd pain- on iv abx -consider imaging abd again consider if we need to do a diagnostic paracentesis Diabetic control. Patient still has a leukocytosis Anemia -high ferritin- epo Peripheral vascular disease from diabetes. Hypocalcemia check vitamin D and PTH levels- low at 65 replace calcium, though corrects for hypoalbuminmia. Plan See above- hd, vanco. evaluate abd pain Attestations Medical Necessity Statement*: esrd, infection, and pain, anemia Time Spent in Patient Care: 16 - 35 minutes (>than 50% of time spent in counselling and/or direct pt care on unit). Coding Level of Care Code Acute Code for [facility] Fwd Diagnoses ESRD (end stage renal disease) N18.6
[2024-06-30] MEDS: calcium acetate 667 mg Capsule 1334 MG PO ×3 (08:33→18:54)
[2024-06-30] MEDS: meropenem 1,000 MG in sodium chloride 0.9% (plus) 50 ML 100 MG IV ×2 (08:34→20:05)
--- NOTE | 2024-06-30 11:08 | PC.NURSE ---
Patient to med surge for dialysis at 1100.
--- NOTE | 2024-06-30 11:08 | PC.NURSE ---
Patient refused to work with PT this morning stating that they did not feel like it today. Patient was educated on the importance of doing range of motion and moving. Patient stated they understood and it was their choice if they wanted to try today or not.
[2024-06-30 12:24] LABS: Glucose Point of Care 130 mg/dL (70-110)
[2024-06-30] MEDS: nystatin powder 15 gm Btl 1 APPLIC TOPICAL ×2 (15:32→18:54)
[2024-06-30 17:26] LABS: Glucose Point of Care 130 mg/dL (70-110)
--- NOTE | 2024-06-30 17:31 | P.PN_ITS ---
Subjective 2 Subjective: No acute overnight events noted. Medications: Reviewed: Yes Vitals/I&O/Wt Last Vital Signs Temp 97.8 F 06/30/24 16:00 Pulse 105 H 06/30/24 16:00 Resp 18 06/30/24 16:00 BP 120/63 06/30/24 16:00 Pulse Ox 99 06/30/24 16:00 O2 Del Method Room Air 06/30/24 16:00 O2 Flow Rate 3 06/30/24 14:17 FiO2 45 06/27/24 21:45 06/30/24 06/30/24 06/30/24 06:59 14:59 22:59 Intake Total 240 / 240 Output Total 100 / 200 100 / 100 Balance -100 / -100 240 / 240 -100 / 140 Weight last 48 hrs Weight 113.988 kg Weight 118.5 kg Physical Exam 2 Narrative: He is alert awake oriented x 3, not in acute distress Chest clear to auscultation bilaterally Cardiovascular normal heart sounds Abdomen soft nontender nondistended normal bowel sounds Extremities right lower extremity 1+ pitting edema present, left BKA dressing present no discharge or bleeding seen. Urinary Catheter Management: Reyes: Cath Placed During This Visit: yes Reason for Continuing Indwelling Catheter: Accurate Measurement of Urinary Output in Critically Ill Patients Urinary Catheter Date of Insertion: 06/26/24 Urinary Catheter Time of Insertion: 09:41 Data 06/30/24 03:57 06/30/24 03:57 A&P Assessment and plan (1) DKA (diabetic ketoacidosis): Resolved. He is weaned off insulin drip. On fingersticks every 6 hours, sugars have been well between 130s to 150s. Will hold correction scale insulin for now. (2) Diabetes mellitus with foot ulcer and gangrene: He is s/p left BKA. Wound dressed and no active discharge present. (3) ESRD on peritoneal dialysis: Received tunneled HD catheter by surgery this afternoon. Patient undergoing hemodialysis. Blood pressure still soft. Follow-up nephrology for further recommendations. (4) Hyponatremia: Sodium 128 today. Hyponatremia likely secondary to poor p.o. intake. Will continue with normal saline at 80 mL/h. (5) Leukocytosis: Leukocytosis trending up to 35.36 and now 25.8, . Antibiotics changed to vancomycin and meropenem. Will follow-up cultures. (6) Diarrhea: GI panel still pending. Continue Imodium 2 mg every 6 hours as needed Plan 06/23-- He is sedated and intubated, undergoing hemodialysis currently. Will follow-up chest x-ray in a.m. and plan for weaning off sedation and possible extubation in a.m. depending on labs and hemodynamics. Family aware of plan of care 06/24-- He is more alert and awake, trying to communicate. Hence ABG done and extubated. Doing well postextubation. Leukocytosis improving to 17.5. Postdialysis creatinine 3.2. Peritoneal fluid culture positive for MRSA. Will do isolation and contact precautions. Already on IV vancomycin and meropenem for broad-spectrum coverage for MRSA peritonitis and pneumonitis. Chest x-ray done showed no significant interval difference as compared to admission chest x-ray. But clinically and hemodynamically improving post left BKA and hemodialysis. Blood pressure improved post extubation. Follow-up nephrology for further recommendations. 06/25-- He is off Levophed, extubated doing well on 2.5 L nasal cannula saturating 99%. Required intermittent BiPAP postextubation and overnight. Repeat chest x-ray showed unchanged opacity but distended abdomen. Continue IV vancomycin as per pharmacy recommendations and IV meropenem Will follow-up blood cultures Hemodialysis today WBC count 22.2 slightly elevated from 17.5, sodium 133, creatinine 3.6, hemoglobin 10.2. Follow-up nephrology, orthopedics for further recommendations. PT/OT eval in process 06/26-- Leucocytosis trending up to 24, Will need proper dosing of vancomycin. Looks like getting underdosed on vancomycin. Will continue meropenem for now. Will discuss with ortho about appropriate antibiotics. Continue HD as per nephrology. Will monitor for today in ICU and Transfer to [facility] in am. Although worsening leukocytosis but he seems a septic and comfortable and is hemodynamically and respiratory portillo stable. Will continue to monitor. Will start him on soft diet today. 06/27-- Leukocytosis trending down to 19.7, hemoglobin stable. Undergoing hemodialysis at bedside. Cleared by Dr. Garcia for wound care and continue current antibiotics. Will follow-up with nephrology for duration of antibiotics for MRSA peritonitis. Has been hemodynamically stable, will transfer him to [facility] for further care. Will do PICC line insertion and discontinue left IJ. Repeat chest x-ray in a.m. 06/28--leukocytosis still trending down to 17.6. He is hemodynamically stable, afebrile, tolerating diet. Will transfer him to [facility] for further monitoring and care. 06/29--leukocytosis trending down to 17.0, hemoglobin stable. He is afebrile, will continue IV vancomycin and meropenem for 1 more day. Discussed with nephrology about MRSA and peritoneal fluid, patient to get IV vancomycin with dialysis for 2 weeks. Will follow-up case management for discharge planning. Anticipating discharge in a.m. 06/30--awaiting for case management for discharge planning. Attestations 2 Medical Necessity Statement*: Awaiting for case management for discharge planning Time Spent in Patient Care: 10 minutes Coding Level of Care Code Acute Code for g Fwd Diagnoses DKA (diabetic ketoacidosis) E11.10 Diabetes mellitus with foot ulcer and gangrene E11.621; E11.52; L97.509 ESRD on peritoneal dialysis N18.6; Z99.2 Hyponatremia E87.1 Leukocytosis D72.829 Diarrhea R19.7 Time Spent (min) 10
[2024-06-30] MEDS: atorvastatin 40 mg Tablet PO (20:04)
[2024-06-30] MEDS: acetaminophen 325 mg Tablet 650 MG PO (20:04)
[2024-06-30] MEDS: pantoprazole 40 mg SDV IVP (20:05)
[2024-06-30] MEDS: ondansetron 2 mg/ML SDV 2 mL 4 MG IVP (20:15)
[2024-06-30 20:55] LABS: Glucose Point of Care 169 mg/dL (70-110)
[2024-06-30] MEDS: insulin lispro 100 unit/1 mL SUBCUT (21:19)
[2024-07-01] VITALS (11 sets, daily range): BP systolic 114–130; BP diastolic 60–75; PULSE 90–105; RESP 12–22; TEMP 36.3–36.7; O2SAT 92–100
[2024-07-01] MEDS: acetaminophen 325 mg Tablet 650 MG PO (02:54)
[2024-07-01 05:13] LABS: Basophils # 0.1 10^3/uL (0.0-0.1); Basophils % 0.3 %; Eosinophils # 0.4 10^3/uL (0.0-0.8); Eosinophils % 2.2 %; Hematocrit 28.7 % (37-53); Lymphocytes # 0.7 10^3/uL (0.8-4.8); Lymphocytes % 4.4 %; Mean Corpuscular Hemoglobin 28.3 pg (27-33); Mean Corpuscular Volume 91.1 fl (82-101); Mean Platelet Volume 10.9 fL (7.4-10.4); Monocytes # 1.5 10^3/uL (0.2-0.9); Monocytes % 8.9 %; Neutrophils # 13.26 10^3/uL (1.8-7.7); Neutrophils % 80.4 %; Nucleated Red Blood Cells % 0 %; Platelet Count 172 10^3/cmm (157-399); Red Blood Count 3.15 10^6/uL (3.85-5.65); Red Cell Distribution Width 15.7 % (12.1-15.1); White Blood Count 16.48 10^3/uL (3.29-11.43)
[2024-07-01 05:36] LABS: Alanine Aminotransferase < 5 U/L (0-41); Albumin Level 1.9 g/dL (3.5-5.2); Alkaline Phosphatase 147 U/L (40-130); Anion Gap 12.3 (5-19); Aspartate Amino Transferase 15 U/L (0-40); Blood Urea Nitrogen 24 mg/dL (6-20); Calcium 7.4 mg/dL (8.5-10.5); Carbon Dioxide 27 mmol/L (22-29); Chloride 105 mmol/L (98-107); Creatinine Clr Calc Pharmacy 32.0889; Glomerular Filtration Rate 20.2 mL/min (90-130); Glucose 120 mg/dL (65-115); Magnesium 1.9 mg/dL (1.7-2.3); Osmolality Calculated 295 mOsm/kg (285-295); Phosphorus 4.7 mg/dL (2.5-4.5); Potassium 4.3 mmol/L (3.5-5.1); Sodium 140 mmol/L (136-145); Total Bilirubin 0.3 mg/dL (0.15-1.2); Total Protein 4.9 g/dL (6.6-8.7)
[2024-07-01] MEDS: HYDROmorphone 1 mg/mL INJ 1 mL 0.3 MG IVP (06:17)
[2024-07-01] MEDS: aspirin 81 mg Chew Tablet PO (06:17)
[2024-07-01 06:42] LABS: Glucose Point of Care 109 mg/dL (70-110)
[2024-07-01] MEDS: calcium acetate 667 mg Capsule 1334 MG PO ×3 (08:12→17:28)
[2024-07-01] MEDS: nystatin powder 15 gm Btl 1 APPLIC TOPICAL ×2 (08:14→17:31)
--- NOTE | 2024-07-01 10:54 | PC.SOCIAL ---
IMM Updated Updated pt on IMM. No questions voiced. Provided pt a copy. Initialed, dated, & timed copy in chart.
[2024-07-01 12:02] LABS: Glucose Point of Care 156 mg/dL (70-110)
[2024-07-01 12:02] LABS: Glucose Point of Care 141 mg/dL (70-110)
[2024-07-01] MEDS: oxyCODONE-APAP 5-325 mg Tablet 1 TAB PO ×2 (12:48→17:29)
--- NOTE | 2024-07-01 14:55 | P.PN_ITS ---
Subjective 2 Subjective: c/o abdominal pain Medications: Reviewed: Yes Vitals/I&O/Wt Last Vital Signs Temp 97.6 F 07/01/24 11:29 Pulse 105 H 07/01/24 11:29 Resp 18 07/01/24 12:48 BP 126/75 07/01/24 11:29 Pulse Ox 96 07/01/24 12:48 O2 Del Method Nasal Cannula 07/01/24 11:29 O2 Flow Rate 3 07/01/24 07:53 FiO2 45 06/27/24 21:45 06/30/24 07/01/24 07/01/24 22:59 06:59 14:59 Intake Total 340 / 580 480 / 480 Output Total 100 / 100 0 / 100 Balance 240 / 480 0 / 480 480 / 480 Weight last 48 hrs Weight 113.988 kg Weight 113.988 kg Physical Exam 2 Narrative: Patient appears older than stated age. In bed uncomfortable, ill appearing Vital signs noted. HEENT normocephalic atraumatic. Neck is supple Lungs dull bases. Heart regular, tachycardic, positive systolic murmur. Abdomen is soft positive bowel sound, ++ diffuse tenderness Extremities left BKA. Right leg no edema. Neuro awake alert oriented x 2. Dialysis access left anterior chest wall permacath. Urinary Catheter Management: Reyes: Cath Placed During This Visit: yes Reason for Continuing Indwelling Catheter: Accurate Measurement of Urinary Output in Critically Ill Patients Urinary Catheter Date of Insertion: 06/26/24 Urinary Catheter Time of Insertion: 09:41 Data 07/01/24 04:22 07/01/24 04:22 A&P Assessment and plan (1) ESRD (end stage renal disease): 58-year-old gentleman end-stage renal disease was recently transferred from peritoneal dialysis to hemodialysis. The patient was not able to do his PD appropriately. His PD catheter has been removed and his abdomen is healing well. The patient has a permacath. Has plan to be on a Saturday schedule for dialysis. abd pain- on iv abx -consider CT abdomen to evaluate consider if we need to do a diagnostic paracentesis Diabetic control. Patient still has a leukocytosis Anemia -high ferritin- epo Peripheral vascular disease from diabetes. Hypocalcemia check vitamin D and PTH levels- low at 65 replace calcium, though corrects for hypoalbuminmia. Plan See above- hd, vanco. evaluate abd pain Attestations 2 Medical Necessity Statement*: per candida Coding Level of Care Code Acute Code for Chg Fwd Diagnoses ESRD (end stage renal disease) N18.6
--- NOTE | 2024-07-01 16:47 | P.PN_ITS ---
Subjective 2 Subjective: No acute overnight events noted. Seen him at bedside this morning, counseled and educated about the need for physical therapy and recovery, understands the need for participating in physical therapy. Medications: Reviewed: Yes Vitals/I&O/Wt Last Vital Signs Temp 97.6 F 07/01/24 11:29 Pulse 105 H 07/01/24 11:29 Resp 18 07/01/24 12:48 BP 126/75 07/01/24 11:29 Pulse Ox 96 07/01/24 12:48 O2 Del Method Nasal Cannula 07/01/24 11:29 O2 Flow Rate 3 07/01/24 07:53 FiO2 45 06/27/24 21:45 07/01/24 07/01/24 07/01/24 06:59 14:59 22:59 Intake Total 480 / 480 Output Total 0 / 100 Balance 0 / 480 480 / 480 Weight last 48 hrs Weight 113.988 kg Weight 113.988 kg Physical Exam 2 Narrative: He is alert awake oriented x 3, not in acute distress Chest clear to auscultation bilaterally Cardiovascular normal heart sounds Abdomen soft nontender nondistended normal bowel sounds Extremities right lower extremity 1+ pitting edema present, left BKA dressing present no discharge or bleeding seen. Urinary Catheter Management: Reyes: Cath Placed During This Visit: yes Reason for Continuing Indwelling Catheter: Accurate Measurement of Urinary Output in Critically Ill Patients Urinary Catheter Date of Insertion: 06/26/24 Urinary Catheter Time of Insertion: 09:41 Data 07/01/24 04:22 07/01/24 04:22 A&P Assessment and plan (1) DKA (diabetic ketoacidosis): Resolved. He is weaned off insulin drip. On fingersticks every 6 hours, sugars have been well between 130s to 150s. Will hold correction scale insulin for now. (2) Diabetes mellitus with foot ulcer and gangrene: He is s/p left BKA. Wound dressed and no active discharge present. (3) ESRD on peritoneal dialysis: Received tunneled HD catheter by surgery this afternoon. Patient undergoing hemodialysis. Blood pressure still soft. Follow-up nephrology for further recommendations. (4) Hyponatremia: Sodium 128 today. Hyponatremia likely secondary to poor p.o. intake. Will continue with normal saline at 80 mL/h. (5) Leukocytosis: Leukocytosis trending up to 35.36 and now 25.8, . Antibiotics changed to vancomycin and meropenem. Will follow-up cultures. (6) Diarrhea: GI panel still pending. Continue Imodium 2 mg every 6 hours as needed Plan 06/23-- He is sedated and intubated, undergoing hemodialysis currently. Will follow-up chest x-ray in a.m. and plan for weaning off sedation and possible extubation in a.m. depending on labs and hemodynamics. Family aware of plan of care 06/24-- He is more alert and awake, trying to communicate. Hence ABG done and extubated. Doing well postextubation. Leukocytosis improving to 17.5. Postdialysis creatinine 3.2. Peritoneal fluid culture positive for MRSA. Will do isolation and contact precautions. Already on IV vancomycin and meropenem for broad-spectrum coverage for MRSA peritonitis and pneumonitis. Chest x-ray done showed no significant interval difference as compared to admission chest x-ray. But clinically and hemodynamically improving post left BKA and hemodialysis. Blood pressure improved post extubation. Follow-up nephrology for further recommendations. 06/25-- He is off Levophed, extubated doing well on 2.5 L nasal cannula saturating 99%. Required intermittent BiPAP postextubation and overnight. Repeat chest x-ray showed unchanged opacity but distended abdomen. Continue IV vancomycin as per pharmacy recommendations and IV meropenem Will follow-up blood cultures Hemodialysis today WBC count 22.2 slightly elevated from 17.5, sodium 133, creatinine 3.6, hemoglobin 10.2. Follow-up nephrology, orthopedics for further recommendations. PT/OT eval in process 06/26-- Leucocytosis trending up to 24, Will need proper dosing of vancomycin. Looks like getting underdosed on vancomycin. Will continue meropenem for now. Will discuss with ortho about appropriate antibiotics. Continue HD as per nephrology. Will monitor for today in ICU and Transfer to [facility] in am. Although worsening leukocytosis but he seems a septic and comfortable and is hemodynamically and respiratory portillo stable. Will continue to monitor. Will start him on soft diet today. 06/27-- Leukocytosis trending down to 19.7, hemoglobin stable. Undergoing hemodialysis at bedside. Cleared by Dr. Garcia for wound care and continue current antibiotics. Will follow-up with nephrology for duration of antibiotics for MRSA peritonitis. Has been hemodynamically stable, will transfer him to [facility] for further care. Will do PICC line insertion and discontinue left IJ. Repeat chest x-ray in a.m. 06/28--leukocytosis still trending down to 17.6. He is hemodynamically stable, afebrile, tolerating diet. Will transfer him to [facility] for further monitoring and care. 06/29--leukocytosis trending down to 17.0, hemoglobin stable. He is afebrile, will continue IV vancomycin and meropenem for 1 more day. Discussed with nephrology about MRSA and peritoneal fluid, patient to get IV vancomycin with dialysis for 2 weeks. Will follow-up case management for discharge planning. Anticipating discharge in a.m. 06/30--awaiting for case management for discharge planning. 07/01--awaiting discharge to subacute rehab. Discontinued meropenem and he is supposed to get vancomycin 500 mg with hemodialysis for 2 weeks. Attestations 2 Medical Necessity Statement*: Awaiting discharge to subacute rehab Time Spent in Patient Care: 15 Coding Level of Care Code Acute Code for [facility] Fwd Diagnoses DKA (diabetic ketoacidosis) E11.10 Diabetes mellitus with foot ulcer and gangrene E11.621; E11.52; L97.509 ESRD on peritoneal dialysis N18.6; Z99.2 Hyponatremia E87.1 Leukocytosis D72.829 Diarrhea R19.7 Time Spent (min) 15
[2024-07-01 17:20] LABS: Glucose Point of Care 153 mg/dL (70-110)
[2024-07-01] MEDS: gabapentin 300 mg Capsule PO (20:37)
[2024-07-01] MEDS: atorvastatin 40 mg Tablet PO (20:37)
[2024-07-01 20:54] LABS: Glucose Point of Care 131 mg/dL (70-110)
[2024-07-01] MEDS: pantoprazole 40 mg SDV IVP (22:16)
[2024-07-02] VITALS: BP 113/64; PULSE 89; RESP 12; TEMP 36.8; O2SAT 100
[2024-07-02 04:00] VITALS: BP 147/81; PULSE 96; RESP 17; TEMP 36.6; O2SAT 100
[2024-07-02 04:35] LABS: Basophils # 0.1 10^3/uL (0.0-0.1); Basophils % 0.4 %; Eosinophils # 0.4 10^3/uL (0.0-0.8); Eosinophils % 2.2 %; Lymphocytes # 0.7 10^3/uL (0.8-4.8); Lymphocytes % 4.1 %; Mean Corpuscular HGB Conc 30.3 g/dL (30-55); Mean Corpuscular Volume 92.4 fl (82-101); Mean Platelet Volume 10.9 fL (7.4-10.4); Monocytes # 1.3 10^3/uL (0.2-0.9); Neutrophils % 81.9 %; Nucleated Red Blood Cells % 0 %; Platelet Count 178 10^3/cmm (157-399); Red Blood Count 3.14 10^6/uL (3.85-5.65); Red Cell Distribution Width 15.8 % (12.1-15.1); White Blood Count 16.22 10^3/uL (3.29-11.43)
[2024-07-02 04:56] LABS: Alanine Aminotransferase < 5 U/L (0-41); Albumin Level 1.9 g/dL (3.5-5.2); Alkaline Phosphatase 143 U/L (40-130); Anion Gap 11.7 (5-19); Aspartate Amino Transferase 14 U/L (0-40); Blood Urea Nitrogen 28 mg/dL (6-20); Calcium 7.8 mg/dL (8.5-10.5); Carbon Dioxide 26 mmol/L (22-29); Chloride 104 mmol/L (98-107); Creatinine Clr Calc Pharmacy 29.3384; Globulin 3.2 g/dL (1.3-4.6); Glomerular Filtration Rate 18.2 mL/min (90-130); Glucose 149 mg/dL (65-115); Osmolality Calculated 292 mOsm/kg (285-295); Phosphorus 5.5 mg/dL (2.5-4.5); Potassium 4.7 mmol/L (3.5-5.1); Sodium 137 mmol/L (136-145); Total Bilirubin 0.3 mg/dL (0.15-1.2); Total Protein 5.1 g/dL (6.6-8.7)
[2024-07-02] MEDS: aspirin 81 mg Chew Tablet PO (05:00)
[2024-07-02 05:22] VITALS: PULSE 97
[2024-07-02 06:30] LABS: Glucose Point of Care 166 mg/dL (70-110)
[2024-07-02 07:17] VITALS: BP 110/72; PULSE 99; RESP 19; TEMP 36.7; O2SAT 100
--- NOTE | 2024-07-02 07:47 | P.PN_ITS ---
Subjective 2 Subjective: plan for HD today Medications: Reviewed: Yes Vitals/I&O/Wt Last Vital Signs Temp 98.0 F 07/02/24 07:17 Pulse 99 07/02/24 07:17 Resp 19 H 07/02/24 07:17 BP 110/72 07/02/24 07:17 Pulse Ox 100 07/02/24 07:17 O2 Del Method Nasal Cannula 07/02/24 07:17 O2 Flow Rate 3 07/01/24 07:53 FiO2 45 06/27/24 21:45 07/01/24 07/02/24 07/02/24 22:59 06:59 14:59 Intake Total 120 / 600 Output Total 100 / 100 100 / 200 Balance 20 / 500 -100 / 400 Weight last 48 hrs Weight 113.988 kg Weight 113.988 kg Physical Exam 2 Narrative: Patient appears older than stated age. In bed uncomfortable, ill appearing Vital signs noted. HEENT normocephalic atraumatic. Neck is supple Lungs dull bases. Heart regular, tachycardic, positive systolic murmur. Abdomen is soft positive bowel sound, ++ diffuse tenderness Extremities left BKA. Right leg no edema. Neuro awake alert oriented x 2. Dialysis access left anterior chest wall permacath. Urinary Catheter Management: Reyes: Cath Placed During This Visit: yes Reason for Continuing Indwelling Catheter: Accurate Measurement of Urinary Output in Critically Ill Patients Urinary Catheter Date of Insertion: 06/26/24 Urinary Catheter Time of Insertion: 09:41 Data 07/02/24 04:20 07/02/24 04:20 A&P Assessment and plan (1) ESRD (end stage renal disease): 58-year-old gentleman end-stage renal disease was recently transferred from peritoneal dialysis to hemodialysis. The patient was not able to do his PD appropriately. His PD catheter has been removed and his abdomen is healing well. The patient has a permacath. Has plan to be on a Saturday schedule for dialysis. HD today abd pain- on iv abx -consider CT abdomen to evaluate consider if we need to do a diagnostic paracentesis Diabetic control. Patient still has a leukocytosis Anemia -high ferritin- epo Peripheral vascular disease from diabetes. Hypocalcemia check vitamin D and PTH levels- low at 67 replace calcium, though corrects for hypoalbuminmia. Plan See above- hd, vanco. evaluate abd pain Attestations 2 Medical Necessity Statement*: per medicine Coding Level of Care Code Acute Code for Chg Fwd Diagnoses ESRD (end stage renal disease) N18.6
[2024-07-02 08:00] VITALS: PULSE 99; O2SAT 100
[2024-07-02] MEDS: insulin lispro 100 unit/1 mL SUBCUT (08:47)
[2024-07-02] MEDS: metoprolol succinate ER (24 HR) 25 mg Tablet PO (08:47)
[2024-07-02] MEDS: nystatin powder 15 gm Btl 1 APPLIC TOPICAL (08:48)
[2024-07-02 08:52] VITALS: RESP 19; O2SAT 100
[2024-07-02] MEDS: calcium acetate 667 mg Capsule 1334 MG PO (08:52)
[2024-07-02] MEDS: oxyCODONE-APAP 5-325 mg Tablet 1 TAB PO (08:52)
--- NOTE | 2024-07-02 09:19 | P.DS_ITS ---
Discharge Providers Date of Admission: 06/21/24 19:29 Date of Discharge: July 02, 2024 Attending Provider at Admission: Indio Burroughs Attending Provider at Discharge: Radha Presley MD Primary Care Provider: SERAFIN Reza Diagnoses at Discharge Discharge Diagnosis (1) ESRD (end stage renal disease): Status: Acute Reason for Visit Reason for Visit: weakness Brief History: Pleasant 58-year-old gentleman with history of DM 2, ESRD on peritoneal dialy sis, produces minimal urine, CAD, PVD, TIA, HLD, other medical problems, overall has had decline in his health and mobility over the past year or so, when he goes out he uses a walker to get to his truck, at home mostly getting around with some assistance of the walker but a lot of the time in a wheelchair. Last 2 to 3 days he has had diarrhea, yesterday he was too weak to get himself peritoneal dialysis. He has been weak to the point that he was not able to get out of bed, laying there soiled. In ER he is found to have leukocytosis 18.79. Hyponatremia sodium 124. Potassium 5.3, glucose 418, lactic acid 1.4. Magnesium 1.6. Alk phos 154. Protein 5.9. Albumin 2.1. With history of osteomyelitis, diabetic wound of the left foot, has been unable to go to wound care clinic. He has noted to have large ulcer of the left heel, malodorous discharge. Foot CT suggestive of chronic osteomyelitis of calcaneal stump without fracture or subluxation of the ankle. CT abdomen pelvis with rectal wall thickening, possibly edema in the setting of hepatic enteropathy/colopathy. Proctitis could have similar appearance. Hepatic cirrhosis and moderate ascites. ESRD, PD catheter. Hospital Course Hospital Course 1) DKA (diabetic ketoacidosis): Resolved. He is weaned off insulin drip. On fingersticks every 6 hours, sugars have been well between 130s to 150s. Will hold correction scale insulin for now. (2) Diabetes mellitus with foot ulcer and gangrene: He is s/p left BKA. Wound dressed and no active discharge present. (3) ESRD on peritoneal dialysis: Received tunneled HD catheter by surgery this afternoon. Patient undergoing hemodialysis. Blood pressure still soft. Follow-up nephrology for further recommendations. (4) Hyponatremia: Sodium 128 today. Hyponatremia likely secondary to poor p.o. intake. Will continue with normal saline at 80 mL/h. (5) Leukocytosis: Leukocytosis trending up to 35.36 and now 25.8, . Antibiotics changed to vancomycin and meropenem. Will follow-up cultures. (6) Diarrhea: GI panel still pending. Continue Imodium 2 mg every 6 hours as needed Plan 06/23-- He is sedated and intubated, undergoing hemodialysis currently. Will follow-up chest x-ray in a.m. and plan for weaning off sedation and possible extubation in a.m. depending on labs and hemodynamics. Family aware of plan of care 06/24-- He is more alert and awake, trying to communicate. Hence ABG done and extubated. Doing well postextubation. Leukocytosis improving to 17.5. Postdialysis creatinine 3.2. Peritoneal fluid culture positive for MRSA. Will do isolation and contact precautions. Already on IV vancomycin and meropenem for broad-spectrum coverage for MRSA peritonitis and pneumonitis. Chest x-ray done showed no significant interval difference as compared to admission chest x-ray. But clinically and hemodynamically improving post left BKA and hemodialysis. Blood pressure improved post extubation. Follow-up nephrology for further recommendations. 06/25-- He is off Levophed, extubated doing well on 2.5 L nasal cannula saturating 99%. Required intermittent BiPAP postextubation and overnight. Repeat chest x-ray showed unchanged opacity but distended abdomen. Continue IV vancomycin as per pharmacy recommendations and IV meropenem Will follow-up blood cultures Hemodialysis today WBC count 22.2 slightly elevated from 17.5, sodium 133, creatinine 3.6, hemoglobin 10.2. Follow-up nephrology, orthopedics for further recommendations. PT/OT eval in process 06/26-- Leucocytosis trending up to 24, Will need proper dosing of vancomycin. Looks like getting underdosed on vancomycin. Will continue meropenem for now. Will discuss with ortho about appropriate antibiotics. Continue HD as per nephrology. Will monitor for today in ICU and Transfer to [facility] in am. Although worsening leukocytosis but he seems a septic and comfortable and is hemodynamically and respiratory portillo stable. Will continue to monitor. Will start him on soft diet today. 06/27-- Leukocytosis trending down to 19.7, hemoglobin stable. Undergoing hemodialysis at bedside. Cleared by Dr. Garcia for wound care and continue current antibiotics. Will follow-up with nephrology for duration of antibiotics for MRSA peritonitis. Has been hemodynamically stable, will transfer him to [facility] for further care. Will do PICC line insertion and discontinue left IJ. Repeat chest x-ray in a.m. 06/28--leukocytosis still trending down to 17.6. He is hemodynamically stable, afebrile, tolerating diet. Will transfer him to [facility] for further monitoring and care. 06/29--leukocytosis trending down to 17.0, hemoglobin stable. He is afebrile, will continue IV vancomycin and meropenem for 1 more day. Discussed with nephrology about MRSA and peritoneal fluid, patient to get IV vancomycin with dialysis for 2 weeks. Will follow-up case management for discharge planning. Anticipating discharge in a.m. 06/30--awaiting for case management for discharge planning. 07/01--awaiting discharge to subacute rehab. Discontinued meropenem and he is supposed to get vancomycin 500 mg with hemodialysis for 2 weeks. 07/02--He is doing well with PT and feeling well. Will discharge him today. SQ levemir and his metoprolol home dose earlier held due to soft BP and sugars have been well controlled during this hospitalization. Physical Exam Narrative: He is alert awake oriented x 3, not in acute distress Chest clear to auscultation bilaterally Cardiovascular normal heart sounds Abdomen soft nontender nondistended normal bowel sounds Extremities right lower extremity 1+ pitting edema present, left BKA dressing present no discharge or bleeding seen. Urinary Catheter Management: Reyes: Cath Placed During This Visit: yes Reason for Continuing Indwelling Catheter: Accurate Measurement of Urinary Output in Critically Ill Patients Urinary Catheter Date of Insertion: 06/26/24 Urinary Catheter Time of Insertion: 09:41 Discharge Data Studies Completed and Pending Completed Studies During Hospitalization Category Date Time Status CT abdomen pelvis wo con [id number] Stat Cat Scan 06/21/24 17:[address] ankle LT wo con* [id number] Stat Cat Scan 06/21/24 18:[address] foot LT wo con* [id number] Stat Cat Scan 06/21/24 18:25 Completed CXRP [XR chest 1V portable [id number]] Routine Exams 06/27/24 16:35 Completed CXRP [XR chest 1V portable [id number]] Stat Exams 06/23/24 12:45 Completed XR KUB portable [id number] Stat Exams 06/22/24 10:50 Completed XR chest 1V portable [id number] Routine Exams 06/23/24 04:53 Completed XR chest 1V portable [id number] Routine Exams 06/24/24 06:00 Completed XR chest 1V portable [id number] Routine Exams 06/28/24 07:00 Completed XR chest 1V portable [id number] Stat Exams 06/25/24 07:23 Completed Stool Culture - Enteric [Salmonella / Shigella / Campy] Lab 06/21/24 22:07 Completed Routine Pathology: Surgical [PTH] Routine Pth 06/22/24 20:09 Completed Radiology Impressions Abdomen/Pelvis CT 06/21/24 17:24 IMPRESSION: 1. Rectal wall thickening, possibly reflecting edema in the setting of hepatic enteropathy/colopathy. Proctitis could have a similar appearance. 2. Hepatic cirrhosis with moderate ascites. 3. End-stage renal disease with peritoneal dialysis catheter in place. Foot CT 06/21/24 18:25 IMPRESSION: 1. Findings suggestive of chronic osteomyelitis of the calcaneal stump. Ongoing infection would be difficult to exclude. Ankle CT 06/21/24 18:33 IMPRESSION: 1. No evidence of acute osseous erosion, fracture or subluxation of the left ankle. KUB X-Ray 06/22/24 10:50 IMPRESSION: 1. Peritoneal dialysis catheter seen overlying upper/mid pelvis. 2. Gaseous distension of the stomach noted. Recommend follow-up. C-Arm Fluoroscopy 06/23/24 12:12 Impression: Dialysis catheter insertion. Chest X-Ray 06/28/24 07:00 IMPRESSION: 1. Cardiomegaly. 2. Low lung volumes with linear atelectasis and/or scarring at the lung bases. Laboratory Results WBC 16.22 10^3/uL (3.29-11.43) H 07/02/24 04:20 RBC 3.14 10^6/uL (3.85-5.65) L 07/02/24 04:20 Hgb 8.80 g/dL (11.27-16.99) L 07/02/24 04:20 Hct 29.0 % (37-53) L 07/02/24 04:20 MCV 92.4 fl (82-101) 07/02/24 04:20 MCH 28.0 pg (27-33) 07/02/24 04:20 MCHC 30.3 g/dL (30-55) 07/02/24 04:20 RDW 15.8 % (12.1-15.1) H 07/02/24 04:20 Plt Count 178 10^3/cmm (157-399) 07/02/24 04:20 MPV 10.9 fL (7.4-10.4) H 07/02/24 04:20 Neut % (Auto) 81.9 % 07/02/24 04:20 Lymph % (Auto) 4.1 % 07/02/24 04:20 Dolores % (Auto) 8.0 % 07/02/24 04:20 Eos % (Auto) 2.2 % 07/02/24 04:20 Baso % (Auto) 0.4 % 07/02/24 04:20 Neut # (Auto) 13.30 10^3/uL (1.8-7.7) H 07/02/24 04:20 Lymph # (Auto) 0.7 10^3/uL (0.8-4.8) L 07/02/24 04:20 Dolores # (Auto) 1.3 10^3/uL (0.2-0.9) H 07/02/24 04:20 Eos # (Auto) 0.4 10^3/uL (0.0-0.8) 07/02/24 04:20 Baso # (Auto) 0.1 10^3/uL (0.0-0.1) 07/02/24 04:20 Nucleated RBC % (auto) 0 % 07/02/24 04:20 Nucleated RBCs # 0.0 /100WBC 07/02/24 04:20 Specimen Type Arterial 06/24/24 12:37 Sample Site Radial, left 06/24/24 12:37 ABG pH 7.36 (7.35-7.45) 06/24/24 12:37 ABG pCO2 38.2 mmHg (35-45) 06/24/24 12:37 ABG pO2 88.1 mmHg (80.0-100.0) 06/24/24 12:37 ABG PO2/FiO2 Ratio 314 06/24/24 12:37 ABG HCO3 21.3 mmol/L (22-26) L 06/24/24 12:37 ABG O2 Saturation 97.5 06/24/24 12:37 ABG Base Excess -3.8 mmol/L (-2.0-2.0) L 06/24/24 12:37 Pedro Test Pos 06/24/24 12:37 A-a O2 Gradient 8.2 mmHg (5-10) 06/24/24 12:37 Hematocrit 30.5 % (42-52) L 06/24/24 12:37 Hgb O2 Saturation 95.3 % (95-100) 06/24/24 12:37 Carboxyhemoglobin 0.8 %THgb (0.4-20.1) 06/24/24 12:37 Methemoglobin 1.4 % (0.4-1.5) 06/24/24 12:37 Total Hemoglobin 9.9 g/dL (14-18) L 06/24/24 12:37 Sodium 130.0 mmol/L (131-143) L 06/24/24 12:37 Potassium 3.6 mmol/L (3.5-5.0) 06/24/24 12:37 Glucose 187.0 mg/dL (70-115) H 06/24/24 12:37 Ionized Calcium 1.0 mmol/L (1.1-1.4) L 06/24/24 12:37 O2 Delivery Device Vent 06/24/24 12:37 FiO2 28.0 % 06/24/24 12:37 Tidal Volume 0.50 06/23/24 03:41 PEEP 5.0 cmH20 06/24/24 12:37 Settlement Processor ID Ak 06/24/24 12:37 Sodium 137 mmol/L (136-145) 07/02/24 04:20 Potassium 4.7 mmol/L (3.5-5.1) 07/02/24 04:20 Chloride 104 mmol/L (98-107) 07/02/24 04:20 Carbon Dioxide 26 mmol/L (22-29) 07/02/24 04:20 Anion Gap 11.7 (5-19) 07/02/24 04:20 BUN 28 mg/dL (6-20) H 07/02/24 04:20 Creatinine 3.5 mg/dL (0.7-1.2) H 07/02/24 04:20 GFR Calculation 18.2 mL/min (90-130) L 07/02/24 04:20 Glucose 149 mg/dL (65-115) H 07/02/24 04:20 POC Glucose 166 mg/dL (70-110) H 07/02/24 06:15 Calculated Osmolality 292 mOsm/kg (285-295) 07/02/24 04:20 Lactic Acid 1.4 mmol/L (0.5-2.2) 06/21/24 16:48 Calcium 7.8 mg/dL (8.5-10.5) L 07/02/24 04:20 Phosphorus 5.5 mg/dL (2.5-4.5) H 07/02/24 04:20 Magnesium 2.0 mg/dL (1.7-2.3) 07/02/24 04:20 Iron 19 ug/dL (59-158) L 06/29/24 03:40 TIBC 60 mcg/dl 06/29/24 03:40 % Saturation 31.6 % (20-50) 06/29/24 03:40 Unsat Iron Binding 41 ug/dL (112-347) L 06/29/24 03:40 Ferritin 1764 ng/mL (30-400) H 06/29/24 03:40 Total Bilirubin 0.3 mg/dL (0.15-1.2) 07/02/24 04:20 AST 14 U/L (0-40) 07/02/24 04:20 ALT < 5 U/L (0-41) 07/02/24 04:20 Alkaline Phosphatase 143 U/L (40-130) H 07/02/24 04:20 Troponin T Baseline 142 ng/L (0-15) H* 06/21/24 20:54 Troponin T 120 Minute 142.3 ng/L (0-15) H 06/22/24 01:34 Delta Troponin T 0.3 ABS# (0-10) 06/22/24 01:34 Troponin T Hi Sens 6Hr 128.5 ng/L (0-15) H 06/22/24 07:18 Troponin T Hi Sens 6Hr Delta -13.5 ng/L (0-12) L 06/22/24 07:18 Total Protein 5.1 g/dL (6.6-8.7) L 07/02/24 04:20 Albumin 1.9 g/dL (3.5-5.2) L 07/02/24 04:20 Globulin 3.2 g/dL (1.3-4.6) 07/02/24 04:20 PTH Intact 65.3 pg/mL (15-65) H 06/29/24 03:40 Calcium (PTH Intact) 7.2 mg/dL (8.5-10.5) L 06/29/24 03:40 Peritoneal Color Pale yellow (Pale Yellow) 06/22/24 03:30 Peritoneal Appearance Cloudy (Clear) 06/22/24 03:30 Peritoneal WBC 79013 /uL 06/22/24 03:30 Peritoneal RBC 10 10^3/uL 06/22/24 03:30 Periton Mononu # Auto 15.342 10^3/uL 06/22/24 03:30 Mononuclear WBCs % 88.000 % 06/22/24 03:30 Polynuclear WBCs % 12.000 % 06/22/24 03:30 Perit Polynuc WBCs # 2.090 10^3/uL 06/22/24 03:30 Peritoneal Diff Commnt Yes 06/22/24 03:30 Vancomycin Trough 24.9 ug/mL (10-15) H 06/30/24 03:57 Random Vancomycin 29.0 ug/mL (20.0-40.0) 06/29/24 14:20 Serum Ketones Positive (Negative) H 06/21/24 16:48 C. difficile (PCR) Negative (Negative) 06/21/24 18:18 Hepatitis A IgM Ab Non-reactive (Nonreactive) 06/22/24 00:00 Hep Bs Antigen Non-reactive (Nonreactive) 06/23/24 02:56 Hep Bs Antibody 46.6 (11.5-1000) 06/23/24 02:56 Hep B Core IgM Ab Non-reactive (Nonreactive) 06/22/24 00:00 Hepatitis C Antibody Non-reactive (Nonreactive) 06/22/24 00:00 Blood Type O Positive 06/21/24 02:56 Rho(D) Type Rh positive 06/21/24 02:56 Antibody Screen Negative 06/21/24 02:56 Vitals Last Vital Signs Temp 98.0 F 07/02/24 07:17 Pulse 99 07/02/24 08:00 Resp 19 H 07/02/24 08:52 BP 110/72 07/02/24 07:17 Pulse Ox 100 07/02/24 08:52 O2 Del Method Nasal Cannula 07/02/24 08:00 O2 Flow Rate 3 07/02/24 08:00 FiO2 45 06/27/24 21:45 Discharge Plan Discharge Patient Disposition: Xfer SNF Condition: Stable Prescriptions: New Lanolin (HPA) 100 % Cream 1 applic topical PRN PRN (Reason: Dryness) Qty: 21 0RF oxycodone-acetaminophen 5-325 mg Tablet 1 tab PO Q4H PRN (Reason: Moderate Pain) Qty: 20 0RF metoprolol succinate 25 mg Tablet Extended Release 24 Hr 25 mg PO DAILY 30 Days Qty: 30 0RF nystatin [Nystop] 100,000 unit/gram Powder 1 applic topical BID 10 Days Qty: 21 0RF clopidogrel [Plavix] 75 mg tablet 75 mg PO DAILY 60 Days Qty: 60 0RF Continued gabapentin 300 mg capsule 300 mg PO BEDTIME Dakin's Solution 0.125 % solution 1 applic topical DAILY Qty: 473 2RF atorvastatin 40 mg tablet 40 mg PO BEDTIME pregabalin [Lyrica] 200 mg capsule 200 mg PO TID famotidine 20 mg tablet 20 mg PO BID aspirin 81 mg Tablet,Chewable 81 mg PO QAM Qty: 60 0RF insulin lispro [Humalog KwikPen Insulin] 100 unit/mL insulin pen See Rx Instructions .ROUTE .COMPLEX Qty: 15 0RF Rx Instructions: Inject, subcut, 3 times daily, after meals, based on sliding scale provided docusate sodium 100 mg capsule 100 mg PO BID PRN (Reason: Constipation) RenaPlex-D 800 mcg-12.5 mg -2,000 unit tablet 1 tab PO DAILY fluticasone propion-salmeterol [Advair Diskus] 100-50 mcg/dose blister with device 1 inh inhalation BID PRN (Reason: Shortness Of Breath) sodium bicarbonate 650 mg tablet 1,300 mg PO BID sevelamer carbonate 800 mg tablet 800 mg PO TID Veltassa 8.4 gram powder in packet 8.4 g PO DAILY Discontinued amlodipine 10 mg tablet 10 mg PO QAM Levemir FlexPen 100 unit/mL (3 mL) insulin pen 10 unit SUBCUT QAM 30 Days Qty: 3 0RF metoprolol tartrate 100 mg tablet 100 mg PO BID No Action (DME) Dexcom G6 Sensor Device See Rx Instructions .Route Qty: 9 3RF Rx Instructions: As directed (DME) Dexcom G6 Residential Insurance Inspector Misc See Rx Instructions .Route Qty: 1 0RF Rx Instructions: As directed (DME) Dexcom G6 Transmitter Device See Rx Instructions .Route Qty: 3 3RF Rx Instructions: As directed (DME) Podus Boot to the Left See Rx Instructions .Route .MEDSUPPLY Qty: 1 0RF Rx Instructions: As directed J P & O- Patient is in Hospital Cardiac Stepdown Unit room 105-1 Discharge Orders: Discharge Order (Routine); Ordered 07/02/24 Ordered By: Radha Presley Referrals: [facility] [Outside] - 07/02/24 10:20 am Vidhi Gillette FNP [Primary Care Provider] - Discharge Diet: Cardiac Discharge Activity: Increase activity as tolerated Patient Instructions: Dialysis Diet (DC), Hemodialysis (DC), Opioid Safety Plan of Treatment: patient to receive IV vancomycin 500mg with dialysis for 2 weeks. Discharge Attestations Time Spent in Discharge Care*: less than 30 min Status at Discharge: Cognitive status at discharge: cognitively intact , Behavioral status at discharge: cooperative , Quality Metrics Clinical Quality Measures [ No reported AMI, CVA or VTE this stay] Coding Level of Care Code Acute Code for Chg Fwd Diagnoses ESRD (end stage renal disease) N18.6 Time Spent (min) 20
[2024-07-02 11:16] LABS: Glucose Point of Care 145 mg/dL (70-110)
[2024-07-02] MEDS: heparin, porcine 1,000 unit/mL INJ 10 mL 1000 UNIT IV (11:44)
[2024-07-02 11:51] LABS: SARS Covid-2 Antigen negative (Negative)
--- NOTE | 2024-07-02 12:15 | PC.NURSE ---
off unit with dialysis approximately 1120
[2024-07-02] MEDS: albumin 12.5 GM/50 ML VIAL IV ×3 (12:50→13:38)
[2024-07-02] MEDS: heparin, porcine 1,000 unit/mL INJ 10 mL 10000 UNIT INTRACATH (13:20)
--- NOTE | 2024-07-02 14:54 | PC.OT ---
HOLD OT TX TODAY DUE TO SCHEDULED PATIENT D/C TO SNF
--- NOTE | 2024-07-02 15:14 | PC.NURSE ---
back on unit from dialysis
--- NOTE | 2024-07-02 15:47 | PC.NURSE ---
report called to [facility], correction transport left with patient
== END 2024-07-02 15:48 | disposition skilled nursing facility (03) | DRG 239 ==
LOC: ER 19:27 → ICU 21:03 → CSU 06-28 14:05
PROVIDERS: Hospitalist; Internal Medicine Nephrology; Student in an Organized Health Care Education/Training Program; Surgery; Admitting Provider Internal Medicine; Emergency Provider Nurse Practitioner Family; PCP Nurse Practitioner Family; Visit Provider Internal Medicine
PROC: 0Y6J0Z1 Detachment at Left Lower Leg, High, Open Approach (ICD-10-PCS; CPT 27880; principal; 2024-06-22 17:40)
PROC: 0WPG33Z Removal of Infusion Device from Peritoneal Cavity, Percutaneous Approach (ICD-10-PCS; principal; 2024-06-23 11:05)
PROC: 0WPG33Z Removal of Infusion Device from Peritoneal Cavity, Percutaneous Approach (ICD-10-PCS; CPT 49422; 2024-06-23 11:05)
DX: I96 Gangrene, not elsewhere classified (principal); E11.10 Type 2 diabetes mellitus with ketoacidosis without coma; J18.9 Pneumonia, unspecified organism; L89.624 Pressure ulcer of left heel, stage 4; L97.424 Non-pressure chronic ulcer of left heel and midfoot with necrosis of bone; M86.672 Other chronic osteomyelitis, left ankle and foot; E87.1 Hypo-osmolality and hyponatremia; E11.69 Type 2 diabetes mellitus with other specified complication; E11.621 Type 2 diabetes mellitus with foot ulcer; E11.51 Type 2 diabetes mellitus with diabetic peripheral angiopathy without gangrene; E11.42 Type 2 diabetes mellitus with diabetic polyneuropathy; Z79.51 Long term (current) use of inhaled steroids; Z79.82 Long term (current) use of aspirin; Z79.4 Long term (current) use of insulin; Z79.02 Long term (current) use of antithrombotics/antiplatelets; K21.9 Gastro-esophageal reflux disease without esophagitis; Z86.73 Personal history of transient ischemic attack (TIA), and cerebral infarction without residual deficits; I10 Essential (primary) hypertension; D63.1 Anemia in chronic kidney disease; B95.62 Methicillin resistant Staphylococcus aureus infection as the cause of diseases classified elsewhere; R68.0 Hypothermia, not associated with low environmental temperature; I95.9 Hypotension, unspecified; R19.7 Diarrhea, unspecified; I25.10 Atherosclerotic heart disease of native coronary artery without angina pectoris; Z87.891 Personal history of nicotine dependence; E78.5 Hyperlipidemia, unspecified; I25.2 Old myocardial infarction; Z11.52 Encounter for screening for COVID-19; Z86.16 Personal history of COVID-19
CPT/HCPCS: 36415; 36416; 36573; 36592; 36600; 51702; 71045; 73700; 74018; 74176; 76000; 77001; 80048; 80051; 80053; 80074; 80202; 80503; 82009; 82274; 82310; 82330; 82728; 82805; 82962; 83540; 83550; 83605; 83735; 83970; 84100; 84132; 84484; 85025; 86706; 86850; 86900; 87040; 87045; 87070; 87075; 87077; 87186; 87205; 87340; 87426; 87427; 87449; 87493; 88307; 88311; 89050; 90935; 93005; 94002; 94003; 94660; 94799; 96365; 96367; 96372; 96374; 96376; 97110; 97163; 97165; 97530; 97535; 99285; A4570; J0131; J0330; J0690; J1100; J1170; J1644; J1815; J2185; J2250; J2405; J2470; J2543; J2704; J2795; J3010; J3370; J3372; J3475; J3480; J3490; J7030; J7050; J7799; P9047; Q3014

== ENCOUNTER 2024-07-03 09:25 | Emergency (ER) | payer MEDICARE, MEDICAID, SELFPAY ==
[2024-07-03 09:30] VITALS: BP 142/77; PULSE 101; RESP 17; TEMP 36.7; O2SAT 97
--- NOTE | 2024-07-03 09:46 | PC.PHAR ---
patient is from [facility]
--- NOTE | 2024-07-03 09:47 | XR_ITS ---
WS: [id number] Exam: XR chest 1V portable [id number] Date/Time of Exam: 07/03/2024 10:19 AM Reason For Exam: dyspnea/cough Comparison 06/28/2024. There is mild infiltrate in the RIGHT base. Chronic bibasal plaque atelectasis again noted. The heart is enlarged but unchanged in size. Low lung volumes secondary to limited inspiration. Double-lumen L EFT subclavian dialysis catheter appears to extend into the RIGHT atrium. No pneumothorax. Trace LEFT pleural effusion. Bony structures are intact. The mediastinum is normal in contour. IMPRESSION1. Mild infiltrate in the RIGHT base. 2. Chronic bibasal plaque atelectasis low lung volumes secondary to limited inspiration. 3. Trace LEFT basal pleural effusion.
--- NOTE | 2024-07-03 09:51 | ECG_ITS ---
[facility] Test Date: 2024-07-03 Pat Name: Tim Robison Department: Room: Gender: Male [employer]: : 1965 Requested By: Osiel Bolton Order Number: [id number] [place] MD: Laurita Love M.D. Measurements Intervals [place] Rate: 103 P: 31 TX: 175 QRS: 171 QRSD: 120 T: 31 QT: 334 QTc: 437 Interpretive Statements SINUS TACHYCARDIA RIGHT AXIS DEVIATION [QRS AXIS > 100] RIGHT BUNDLE BRANCH BLOCK [120+ ms QRS DURATION, UPRIGHT V1, 40+ ms S IN I/aVL/V4/V5/V6] Compared to ECG 06/22/2024 11:20:20 Right-axis deviation now present Sinus rhythm no longer present Left posterior fascicular block no longer present Electronically Signed On 07-04-2024 20:54:36 CDT by Laurita Lvoe M.D. [email or web address]
[2024-07-03 10:11] LABS: Basophils # 0.1 10^3/uL (0.0-0.1); Basophils % 0.3 %; Eosinophils # 0.1 10^3/uL (0.0-0.8); Eosinophils % 0.4 %; Hematocrit 30.8 % (37-53); Lymphocytes # 0.7 10^3/uL (0.8-4.8); Mean Corpuscular HGB Conc 30.2 g/dL (30-55); Mean Corpuscular Hemoglobin 27.8 pg (27-33); Mean Corpuscular Volume 92.2 fl (82-101); Mean Platelet Volume 10.9 fL (7.4-10.4); Monocytes # 1.3 10^3/uL (0.2-0.9); Monocytes % 7.2 %; Neutrophils # 15.17 10^3/uL (1.8-7.7); Nucleated Red Blood Cells % 0 %; Platelet Count 223 10^3/cmm (157-399); Red Blood Count 3.34 10^6/uL (3.85-5.65); Red Cell Distribution Width 15.6 % (12.1-15.1); White Blood Count 17.84 10^3/uL (3.29-11.43)
[2024-07-03 10:14] VITALS: BP 117/58; PULSE 104; RESP 20; O2SAT 95
--- NOTE | 2024-07-03 10:25 | W.ED.GENADLT ---
HPI - General Adult General: Chief complaint: General Medical Stated complaint: n/leg pain Time Seen by Provider: 07/03/24 09:46 History of Present Illness: 58-year-old male presents to the emergency room with complaint of hypotension. Patient has end-stage liver disease recently had a left below the knee amputation he was discharged from [facility] to local fdc. He does have end-stage renal disease he receives dialysis Saturdays he received a full course of dialysis yesterday. He denies fever sweats chills chest pain or shortness of breath. Associated symptoms: Deny chest pain, dyspnea or rash Related Data Home Medications Medication Instructions Recorded Confirmed gabapentin 300 mg capsule 300 mg PO BEDTIME 10/11/20 07/03/24 atorvastatin 40 mg tablet 40 mg PO BEDTIME 11/29/22 07/03/24 famotidine 20 mg tablet 20 mg PO BID 11/29/22 07/03/24 pregabalin 200 mg capsule (Lyrica) 200 mg PO TID 11/29/22 07/03/24 docusate sodium 100 mg capsule 100 mg PO BID PRN Constipation 01/18/23 07/03/24 vit B,C-folic ac 800 mcg-zinc 12.5 1 tab PO DAILY 08/29/23 07/03/24 mg-selen-D3 2,000 unit-vit E tablet (RenaPlex-D) fluticasone 100 mcg-salmeterol 50 1 inh inhalation BID PRN Shortness 12/04/23 07/03/24 mcg/dose blistr powdr for Of Breath inhalation (Advair Diskus) patiromer calcium sorbitex 8.4 8.4 g PO DAILY 04/28/24 07/03/24 gram oral powder packet (Veltassa) sevelamer carbonate 800 mg tablet 800 mg PO TID 04/28/24 07/03/24 sodium bicarbonate 650 mg tablet 1,300 mg PO BID 04/28/24 07/03/24 acetaminophen 325 mg tablet 650 mg PO QID PRN pain or fever 07/03/24 07/03/24 (Tylenol) bisacodyl 10 mg rectal suppository See Rx Instructions .Route 07/03/24 07/03/24 (Dulcolax (bisacodyl)) .COMPLEX PRN Constipation bisacodyl 5 mg tablet,delayed See Rx Instructions .Route 07/03/24 07/03/24 release (Dulcolax (bisacodyl)) .COMPLEX PRN constipatiom sodium hypochlorite 0.125 % 1 applic topical DAILY 07/03/24 07/03/24 solution (Dakin's Solution) sodium phosphates 19 gram-7 See Rx Instructions .Route 07/03/24 07/03/24 gram/118 mL enema (Fleet Enema) .COMPLEX PRN Constipation Previous Rx's Medication Instructions Recorded blood-glucose meter,continuous #1 ea 04/23/22 (Dexcom G6 Assistant Shift Supervisor) blood-glucose sensor (Dexcom G6 #9 ea 04/23/22 Sensor device) blood-glucose transmitter (Dexcom #3 ea 04/23/22 G6 Transmitter device) Podus Boot to the Left #1 ea 12/03/22 aspirin 81 mg chewable tablet 81 mg PO QAM #60 tabs 12/06/22 insulin lispro 100 unit/mL See Rx Instructions .Route 01/07/23 subcutaneous pen (Humalog KwikPen .COMPLEX #15 mL (U-100) Insulin) clopidogrel 75 mg tablet (Plavix) 75 mg PO DAILY 60 days #60 tabs 07/02/24 metoprolol succinate 25 mg 25 mg PO DAILY 30 days #30 tabs 07/02/24 tablet,extended release 24 hr modified lanolin 100 % topical 1 applic topical PRN PRN Dryness 07/02/24 cream (Lanolin (HPA)) #21 grams nystatin 100,000 unit/gram topical 1 applic topical BID 10 days #21 07/02/24 powder (Nystop) grams oxycodone-acetaminophen 5 mg-325 1 tab PO Q4H PRN Moderate Pain #20 07/02/24 mg tablet tabs Allergies Allergy/AdvReac Type Severity Reaction Status Date / Time Iodinated Contrast Media Allergy ALGY-Hives Verified 12/24/23 13:55 Review of Systems Const: Denies: fever(s) or chills Card: Denies: chest pain Resp: Denies: dyspnea GI: Denies: abdominal pain : Denies: dysuria, urinary frequency or urinary urgency Musc: Denies: neck pain or back pain Skin/Breast: Denies: rash PFSH ED PFSH: Medical History BMI 36.0-36.9,adult Pressure injury of sacral region, stage 2 Weakness of both lower extremities 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 Chronic osteomyelitis GERD (gastroesophageal reflux disease) TIA (transient ischemic attack) Hypertension Anemia Elevated troponin Peritoneal dialysis catheter in situ History of cardiovascular stress test 11/2022 areas of fixed events with very small areas of reversible defect, suggesting myocardial scarring with possible gurjit-infarction ischemia History of echocardiogram 12/2022 EF50%, tech difficult study ESRD (end stage renal disease) on dialysis COVID (~12/2022) NSTEMI (non-ST elevated myocardial infarction) Aspiration pneumonia PVD (peripheral vascular disease) Chronic ulcer of right foot with fat layer exposed 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 Diabetic peripheral neuropathy associated with type 2 diabetes mellitus Congestive heart failure Type 2 diabetes mellitus Diabetic ulcer of foot associated with diabetes mellitus due to underlying condition, with fat layer exposed Chronic osteomyelitis 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 Uncontrolled type 2 diabetes with neuropathy Hyperlipidemia Onychomycosis of nail of digit of hand Neuropathy Surgical History History of insertion of tunneled central venous catheter (CVC) with port H/O circumcision H/O colonoscopy 7 yrs ago Status post debridement of ulcer of heel Family History Brother Cancer Sister Lung disease Mother Heart failure Father Chronic kidney failure Denies family history of Anesthesia complication Bleeding disorder Social History Smoking and tobacco/nicotine status: former use of tobacco/nicotine Second hand smoke exposure: No Alcohol intake: never Substance/Drug Use: never Adopted: No Lives independently: Yes Marital status: Single Current occupational status: disabled Physical Exam Const: COMMON NORMALS: no acute distress GENERAL APPEARANCE: cooperative and comfortable ORIENTATION/CONSCIOUSNESS: Yes awake HENMT: COMMON NORMALS: normocephalic, atraumatic and hearing grossly normal bilaterally HEAD & SCALP: normocephalic and atraumatic Resp: COMMON NORMALS: normal respiratory effort, No retractions, No use of accessory muscles and clear to auscultation bilaterally AUSCULTATION: clear to auscultation bilaterally Cardio: COMMON NORMALS: regular rate, regular rhythm and No murmurs present (Cardio) RATE: regular rate RHYTHM: regular rhythm GI: COMMON NORMALS: Soft to palpation and No hepatosplenomegaly present AUSCULTATION: Yes normoactive bowel sounds PALPATION: Yes Soft to palpation, No Tenderness to palpation present (GI), No Guarding due to palpation present (GI) and Yes No hepatosplenomegaly present Extremity: OTHER: Left below the knee amputation Skin: COMMON NORMALS: no rashes or lesions noted GENERAL SKIN EXAM: no rashes or lesions noted Course Vital Signs: Vital signs: Vital Signs Temperature 98.1 F 07/03/24 09:30 Pulse Rate 94 07/03/24 15:38 Respiratory Rate 26 H 07/03/24 11:49 Blood Pressure 119/69 07/03/24 15:38 Pulse Oximetry 99 07/03/24 15:38 Oxygen Delivery Me thod Nasal Cannula 07/03/24 15:00 Oxygen Flow Rate 3 07/03/24 14:00 MDM - General Adult Medical Decision Making Labs and imaging reviewed no acute findings. Patient's white count is 17,000 but reviewing his previous hospitalization it had trended down to been as high as 35,000 there is no sign of acute infection at this time. Examination of his stump at the amputation site there is no redness erythema or dehiscence or drainage. Will go and discharge patient back blood pressure has been stable. No change in medications he currently is on vancomycin for the next 13 days which would confirm to the fdc they are planning to continue this. Medical Records I reviewed the patient's medical records. Lab Data I reviewed the patient's lab results. 07/03/24 10:00 07/03/24 10:00 Laboratory Results WBC 17.84 10^3/uL (3.29-11.43) H 07/03/24 10:00 RBC 3.34 10^6/uL (3.85-5.65) L 07/03/24 10:00 Hgb 9.30 g/dL (11.27-16.99) L 07/03/24 10:00 Hct 30.8 % (37-53) L 07/03/24 10:00 MCV 92.2 fl (82-101) 07/03/24 10:00 MCH 27.8 pg (27-33) 07/03/24 10:00 MCHC 30.2 g/dL (30-55) 07/03/24 10:00 RDW 15.6 % (12.1-15.1) H 07/03/24 10:00 Plt Count 223 10^3/cmm (157-399) 07/03/24 10:00 MPV 10.9 fL (7.4-10.4) H 07/03/24 10:00 Neut % (Auto) 85.0 % 07/03/24 10:00 Lymph % (Auto) 4.0 % 07/03/24 10:00 Hill % (Auto) 7.2 % 07/03/24 10:00 Eos % (Auto) 0.4 % 07/03/24 10:00 Baso % (Auto) 0.3 % 07/03/24 10:00 Neut # (Auto) 15.17 10^3/uL (1.8-7.7) H 07/03/24 10:00 Lymph # (Auto) 0.7 10^3/uL (0.8-4.8) L 07/03/24 10:00 Hill # (Auto) 1.3 10^3/uL (0.2-0.9) H 07/03/24 10:00 Eos # (Auto) 0.1 10^3/uL (0.0-0.8) 07/03/24 10:00 Baso # (Auto) 0.1 10^3/uL (0.0-0.1) 07/03/24 10:00 Nucleated RBC % (auto) 0 % 07/03/24 10:00 Nucleated RBCs # 0.0 /100WBC 07/03/24 10:00 Sodium 137 mmol/L (136-145) 07/03/24 10:00 Potassium 4.2 mmol/L (3.5-5.1) 07/03/24 10:00 Chloride 99 mmol/L (98-107) 07/03/24 10:00 Carbon Dioxide 29 mmol/L (22-29) 07/03/24 10:00 Anion Gap 13.2 (5-19) 07/03/24 10:00 BUN 24 mg/dL (6-20) H 07/03/24 10:00 Creatinine 3.0 mg/dL (0.7-1.2) H 07/03/24 10:00 GFR Calculation 21.8 mL/min (90-130) L 07/03/24 10:00 Glucose 147 mg/dL (65-115) H 07/03/24 10:00 Calculated Osmolality 291 mOsm/kg (285-295) 07/03/24 10:00 Calcium 7.9 mg/dL (8.5-10.5) L 07/03/24 10:00 Total Bilirubin 0.4 mg/dL (0.15-1.2) 07/03/24 10:00 AST 11 U/L (0-40) 07/03/24 10:00 ALT < 5 U/L (0-41) 07/03/24 10:00 Alkaline Phosphatase 148 U/L (40-130) H 07/03/24 10:00 Total Protein 6.1 g/dL (6.6-8.7) L 07/03/24 10:00 Albumin 2.4 g/dL (3.5-5.2) L 07/03/24 10:00 Globulin 3.7 g/dL (1.3-4.6) 07/03/24 10:00 All radiology interpretation(s) finalized by discharge Discharge Plan Discharge Patient Disposition: Home Clinical Impression: ESRD (end stage renal disease), Status post below-knee amputation of left lower extremity, Hypotension, unspecified Condition: Stable Prescriptions: No Action gabapentin 300 mg capsule 300 mg PO BEDTIME (DME) Dexcom G6 Sensor Device See Rx Instructions .Route Qty: 9 3RF Rx Instructions: As directed (DME) Dexcom G6 Assistant Shift Supervisor Misc See Rx Instructions .Route Qty: 1 0RF Rx Instructions: As directed (DME) Dexcom G6 Transmitter Device See Rx Instructions .Route Qty: 3 3RF Rx Instructions: As directed (DME) Podus Boot to the Left See Rx Instructions .Route .MEDSUPPLY Qty: 1 0RF Rx Instructions: As directed J P & O- Patient is in Hospital Cardiac Stepdown Unit room 105-1 atorvastatin 40 mg tablet 40 mg PO BEDTIME pregabalin [Lyrica] 200 mg capsule 200 mg PO TID famotidine 20 mg tablet 20 mg PO BID aspirin 81 mg Tablet,Chewable 81 mg PO QAM Qty: 60 0RF insulin lispro [Humalog KwikPen Insulin] 100 unit/mL insulin pen See Rx Instructions .ROUTE .COMPLEX Qty: 15 0RF Rx Instructions: Inject, subcut, 3 times daily, after meals, based on sliding scale provided docusate sodium 100 mg capsule 100 mg PO BID PRN (Reason: Constipation) RenaPlex-D 800 mcg-12.5 mg -2,000 unit tablet 1 tab PO DAILY fluticasone propion-salmeterol [Advair Diskus] 100-50 mcg/dose blister with device 1 inh inhalation BID PRN (Reason: Shortness Of Breath) sodium bicarbonate 650 mg tablet 1,300 mg PO BID sevelamer carbonate 800 mg tablet 800 mg PO TID Veltassa 8.4 gram powder in packet 8.4 g PO DAILY Lanolin (HPA) 100 % Cream 1 applic topical PRN PRN (Reason: Dryness) Qty: 21 0RF oxycodone-acetaminophen 5-325 mg Tablet 1 tab PO Q4H PRN (Reason: Moderate Pain) Qty: 20 0RF metoprolol succinate 25 mg Tablet Extended Release 24 Hr 25 mg PO DAILY 30 Days Qty: 30 0RF nystatin [Nystop] 100,000 unit/gram Powder 1 applic topical BID 10 Days Qty: 21 0RF clopidogrel [Plavix] 75 mg tablet 75 mg PO DAILY 60 Days Qty: 60 0RF acetaminophen [Tylenol] 325 mg Tablet 650 mg PO QID PRN (Reason: pain or fever) bisacodyl [Dulcolax (bisacodyl)] 10 mg Suppository See Rx Instructions .ROUTE .COMPLEX PRN (Reason: Constipation) Rx Instructions: 10 mg rectally once daily as needed rectally if patient can't take by mouth if no relief from MOM Fleet Enema 19-7 gram/118 mL Enema See Rx Instructions .ROUTE .COMPLEX PRN (Reason: Constipation) Rx Instructions: 118 mL rectally once a day as needed if no results from MOM and Dulcolax bisacodyl [Dulcolax (bisacodyl)] 5 mg Tablet,Delayed Release (Dr/Ec) See Rx Instructions .ROUTE .COMPLEX PRN (Reason: constipatiom) Rx Instructions: 10 mg orally once a day as needed* Give if no results from MOM Dakin's Solution 0.125 % Solution 1 applic TOPICAL DAILY Discharge Orders: Discharge ED (Routine); Ordered 07/03/24 Ordered By: Osiel Hagen Referrals: Vidhi Gillette FNP [Primary Care Provider] - Discharge Diet: Usual diet Discharge Activity: Increase activity as tolerated Patient Instructions: Opioid Safety, Pain Management Activity Restrictions/Additional Instructions: Thank you for choosing [facility] for your healthcare needs today. It is very important that you follow up as instructed or that you return to the Emergency Department should you have concerns or if your condition changes or worsens in any way. You were seen today for report of transiently low blood pressure. On monitoring here blood pressure has been stable. Your white count remains slightly elevated which is following a similar trend to what was seen while you are in the hospital. Continue the antibiotics as prescribed at the time of discharge. Wound stump from the BKA appears to be healing well there is no signs of infection. Coding Level of Care Code ED [employer] General Supervisor for Blaise Beckett
[2024-07-03 10:27] LABS: Alanine Aminotransferase < 5 U/L (0-41); Albumin Level 2.4 g/dL (3.5-5.2); Alkaline Phosphatase 148 U/L (40-130); Anion Gap 13.2 (5-19); Aspartate Amino Transferase 11 U/L (0-40); Blood Urea Nitrogen 24 mg/dL (6-20); Calcium 7.9 mg/dL (8.5-10.5); Carbon Dioxide 29 mmol/L (22-29); Chloride 99 mmol/L (98-107); Globulin 3.7 g/dL (1.3-4.6); Glomerular Filtration Rate 21.8 mL/min (90-130); Glucose 147 mg/dL (65-115); Osmolality Calculated 291 mOsm/kg (285-295); Potassium 4.2 mmol/L (3.5-5.1); Sodium 137 mmol/L (136-145); Total Bilirubin 0.4 mg/dL (0.15-1.2); Total Protein 6.1 g/dL (6.6-8.7)
--- NOTE | 2024-07-03 10:40 | PC.PHAR ---
List from discharge states TO STOP METOPOROL TART. 100 , Levemir flexpen , and Amlodipine 10mg . Thes meds were on the long term med list . Metoprolol Tartrate 100mg was stated given to patient last night 07/02/24 at 11:57 pm instead of Metoprolol Succinate 25mg Spoke to [place] LORENZANA who will remove discontinued meds and Milk of Mag due to Renal issues . Dakin Solution has been added from discharge med list .
[2024-07-03 11:49] VITALS: BP 120/65; PULSE 106; RESP 26; O2SAT 95
[2024-07-03 14:00] VITALS: BP 109/55; PULSE 105; O2SAT 93
--- NOTE | 2024-07-03 14:11 | PC.NURSE ---
REPORT CALLED BACK TO [facility] TO TIERA. ACCEPTING NURSE VERBALIZED UNDERSTANDING AND DENIED ANY QUESTIONS.
--- NOTE | 2024-07-03 14:20 | PC.NURSE ---
PT said I cant pee because I cant use my left arm. Tech did go in room to help pt with urinal
[2024-07-03 15:00] VITALS: BP 103/53; PULSE 101; O2SAT 92
[2024-07-03 15:38] VITALS: BP 119/69; PULSE 94; O2SAT 99
== END 2024-07-03 15:47 | disposition home or self-care (01) ==
PROVIDERS: Emergency Provider Family Medicine; PCP Nurse Practitioner Family
DX: I95.9 Hypotension, unspecified (principal); Z89.512 Acquired absence of left leg below knee; I13.2 Hypertensive heart and chronic kidney disease with heart failure and with stage 5 chronic kidney disease, or end stage renal disease; E11.22 Type 2 diabetes mellitus with diabetic chronic kidney disease; N18.6 End stage renal disease; I50.9 Heart failure, unspecified; Z79.02 Long term (current) use of antithrombotics/antiplatelets; Z79.82 Long term (current) use of aspirin; Z79.4 Long term (current) use of insulin; Z86.73 Personal history of transient ischemic attack (TIA), and cerebral infarction without residual deficits; I25.2 Old myocardial infarction; E78.5 Hyperlipidemia, unspecified
CPT/HCPCS: 36415; 71045; 80053; 85025; 93005; 99285